=== PATIENT | female | born 1965 | race Caucasian/White ===

== ENCOUNTER → 2017-11-08 07:05 | Outpatient (CLI) | payer OTHER, SELFPAY ==
[2017-11-08 10:18] LABS: Absolute Lymphocyte Count 1.97 X10^3/ul (0.83-4.51); Absolute Neutrophil Count 3.5 X10^3/uL (2.0-7.7); Basophil# 0.09 X10^3/uL; Basophil% 1.4 % (0-1); Eosinophil# 0.23 X10^3/uL; Eosinophils% 3.5 % (0-5); Hematocrit 39.3 % (37-47); Hemoglobin 12.7 g/dl (12.0-15.0); Lymphocyte # 1.97 X10^3/ul (4.0); Lymphocyte % 30.4 % (19-41); Mean Corp Hgb Conc 32.3 g/gl (32-36); Mean Corpuscular Hgb 30.1 pg (27.0-32.0); Mean Corpuscular Volume 93.1 fL (81-99); Mean Platelet Vol. 11.3 fl (6.2-12.0); Monocyte# 0.68 X10^3/uL; Monocyte% 10.5 % (0-10); Neutrophil # 3.51 X10^3/uL (2.7-7.7); Platelet Count 294 K/mm3 (150-450); RBC Distribution Width CV 12.9 % (11.6-14.6); Red Blood Count 4.22 M/mm3 (4.2-5.4); White Blood Count 6.5 K/mm3 (4.4-11.0)
[2017-11-08 10:22] LABS: POSITIVE COUNT NO; POSITIVE DIFFERENTIAL NO; POSITIVE MORPHOLOGY NO
[2017-11-08 10:26] LABS: AST(SGOT) 18 U/L (15-37); Alanine Aminotransfer ALT/SGPT 17 U/L (13-56); Albumin, Serum 3.4 g/dL (3.2-5.0); Alkaline Phosphatase 85 U/L (45-117); Anion Gap 11 (5-15); BUN 10 mg/dL (7-18); BUN/Creat Ratio 12.2 RATIO (10-20); Calcium,Total 8.4 mg/dL (8.5-10.1); Chloride 106 mmol/L (98-107); Creatinine, Serum 0.82 mg/dL (0.55-1.02); EST Glomerular Filtration Rate 78 mL/min (>60); Est Glom Filt Rate - Afr Amer 94 mL/min (>60); Globulin 3.5 g/dL (2.2-4.2); Glucose 146 mg/dL (74-106); Potassium 3.9 mmol/L (3.5-5.1); Protein, Total 6.9 g/dL (6.4-8.2); Sodium Level 139 mmol/L (136-145)
[2017-11-08 10:53] LABS: Hemoglobin A1c 7.6 % (4.2-6.3)
== END ==
PROVIDERS: Internal Medicine Rheumatology; Family Provider Family Medicine; PCP Family Medicine; Visit Provider Family Medicine
DX: E11.9 Type 2 diabetes 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s (principal); M79.7 Fibromyalgia; F32.9 Major depressive disorder, single episode, unspecified; G47.00 Insomnia, unspecified; M06.4 Inflammatory polyarthropathy; Z79.899 Other long term (current) drug therapy; M18.11 Unilateral primary osteoarthritis of first carpometacarpal joint, right hand; M70.60 Trochanteric bursitis, unspecified hip; J45.909 Unspecified asthma, uncomplicated
CPT/HCPCS: 36415; 80053; 83036; 85025

== ENCOUNTER → 2018-01-28 07:18 | Outpatient (CLI) | payer OTHER, SELFPAY ==
[2018-01-28 10:36] LABS: Absolute Lymphocyte Count 1.63 X10^3/ul (0.83-4.51); Absolute Neutrophil Count 3.3 X10^3/uL (2.0-7.7); Basophil# 0.06 X10^3/uL; Eosinophil# 0.23 X10^3/uL; Eosinophils% 3.8 % (0-5); Hematocrit 39.4 % (37-47); Hemoglobin 12.6 g/dl (12.0-15.0); Lymphocyte # 1.63 X10^3/ul (4.0); Lymphocyte % 26.8 % (19-41); Mean Corpuscular Hgb 29.4 pg (27.0-32.0); Mean Corpuscular Volume 91.8 fL (81-99); Mean Platelet Vol. 10.8 fl (6.2-12.0); Monocyte# 0.88 X10^3/uL; Monocyte% 14.4 % (0-10); Neutrophil # 3.28 X10^3/uL (2.7-7.7); Neutrophil % 53.8 % (47-70); POSITIVE COUNT NO; POSITIVE DIFFERENTIAL NO; POSITIVE MORPHOLOGY NO; Platelet Count 300 K/mm3 (150-450); RBC Distribution Width CV 13.9 % (11.6-14.6); RBC Distribution Width SD 45.8 fl (35.1-43.9); Red Blood Count 4.29 M/mm3 (4.2-5.4); White Blood Count 6.1 K/mm3 (4.4-11.0)
[2018-01-28 11:17] LABS: ALB/GLOB Ratio 1.1 RATIO (0.9-2.4); AST(SGOT) 19 U/L (15-37); Alanine Aminotransfer ALT/SGPT 23 U/L (13-56); Albumin, Serum 3.8 g/dL (3.2-5.0); Alkaline Phosphatase 84 U/L (45-117); Anion Gap 10 (5-15); BUN 13 mg/dL (7-18); BUN/Creat Ratio 14.2 RATIO (10-20); Calcium,Total 8.7 mg/dL (8.5-10.1); Chloride 105 mmol/L (98-107); Creatinine, Serum 0.92 mg/dL (0.55-1.02); EST Glomerular Filtration Rate 68 mL/min (>60); Est Glom Filt Rate - Afr Amer 83 mL/min (>60); Globulin 3.5 g/dL (2.2-4.2); Glucose 157 mg/dL (74-106); Potassium 3.8 mmol/L (3.5-5.1); Protein, Total 7.3 g/dL (6.4-8.2); Sodium Level 138 mmol/L (136-145)
== END ==
PROVIDERS: Family Provider Family Medicine; PCP Family Medicine; Visit Provider Internal Medicine Rheumatology
DX: M06.4 Inflammatory polyarthropathy (principal); Z79.899 Other long term (current) drug therapy; M79.7 Fibromyalgia; M18.11 Unilateral primary osteoarthritis of first carpometacarpal joint, right hand; M70.60 Trochanteric bursitis, unspecified hip; F32.9 Major depressive disorder, single episode, unspecified; J45.909 Unspecified asthma, uncomplicated
CPT/HCPCS: 36415; 80053; 85025

== ENCOUNTER → 2018-04-19 07:00 | Outpatient (CLI) | payer OTHER, SELFPAY ==
[2018-04-19 10:29] LABS: Absolute Lymphocyte Count 1.79 X10^3/ul (0.83-4.51); Absolute Neutrophil Count 3.4 X10^3/uL (2.0-7.7); Basophil# 0.08 X10^3/uL; Basophil% 1.3 % (0-1); Eosinophils% 3.3 % (0-5); Hematocrit 38.5 % (37-47); Hemoglobin 12.6 g/dl (12.0-15.0); Lymphocyte # 1.79 X10^3/ul (4.0); Lymphocyte % 29.9 % (19-41); Mean Corp Hgb Conc 32.7 g/gl (32-36); Mean Corpuscular Hgb 29.9 pg (27.0-32.0); Mean Corpuscular Volume 91.4 fL (81-99); Mean Platelet Vol. 10.8 fl (6.2-12.0); Monocyte# 0.53 X10^3/uL; Monocyte% 8.9 % (0-10); Neutrophil # 3.38 X10^3/uL (2.7-7.7); Neutrophil % 56.6 % (47-70); POSITIVE COUNT NO; POSITIVE DIFFERENTIAL NO; POSITIVE MORPHOLOGY NO; Platelet Count 285 K/mm3 (150-450); RBC Distribution Width CV 13.5 % (11.6-14.6); RBC Distribution Width SD 44.9 fl (35.1-43.9); Red Blood Count 4.21 M/mm3 (4.2-5.4)
[2018-04-19 10:43] LABS: Hemoglobin A1c 6.1 % (4.2-6.3)
[2018-04-19 10:54] LABS: ALB/GLOB Ratio 1.2 RATIO (0.9-2.4); AST(SGOT) 15 U/L (15-37); Alanine Aminotransfer ALT/SGPT 20 U/L (13-56); Albumin, Serum 3.7 g/dL (3.2-5.0); Alkaline Phosphatase 74 U/L (45-117); Anion Gap 11 (5-15); BUN 15 mg/dL (7-18); BUN/Creat Ratio 19.7 RATIO (10-20); Calcium,Total 8.8 mg/dL (8.5-10.1); Chloride 106 mmol/L (98-107); Creatinine, Serum 0.76 mg/dL (0.55-1.02); EST Glomerular Filtration Rate 84 mL/min (>60); Est Glom Filt Rate - Afr Amer 102 mL/min (>60); Globulin 3.1 g/dL (2.2-4.2); Glucose 120 mg/dL (74-106); Potassium 3.6 mmol/L (3.5-5.1); Protein, Total 6.8 g/dL (6.4-8.2); Sodium Level 138 mmol/L (136-145)
== END ==
PROVIDERS: Internal Medicine Rheumatology; Family Provider Family Medicine; PCP Family Medicine; Visit Provider Family Medicine
DX: R73.9 Hyperglycemia, unspecified (principal); M06.4 Inflammatory polyarthropathy; Z79.899 Other long term (current) drug therapy; M79.7 Fibromyalgia; M18.11 Unilateral primary osteoarthritis of first carpometacarpal joint, right hand; M70.60 Trochanteric bursitis, unspecified hip; F32.9 Major depressive disorder, single episode, unspecified; J45.909 Unspecified asthma, uncomplicated
CPT/HCPCS: 36415; 80053; 83036; 85025

== ENCOUNTER → 2018-07-08 07:04 | Outpatient (CLI) | payer OTHER, SELFPAY ==
[2018-06-30 08:35] VITALS: BMI 50.3
[2018-07-08 10:16] LABS: Absolute Lymphocyte Count 2.01 X10^3/ul (0.83-4.51); Absolute Neutrophil Count 3.2 X10^3/uL (2.0-7.7); Basophil# 0.08 X10^3/uL; Basophil% 1.3 % (0-1); Eosinophil# 0.12 X10^3/uL; Eosinophils% 1.9 % (0-5); Hematocrit 37.2 % (37-47); Hemoglobin 11.9 g/dl (12.0-15.0); Lymphocyte # 2.01 X10^3/ul (4.0); Lymphocyte % 32.6 % (19-41); Mean Corpuscular Hgb 30.4 pg (27.0-32.0); Mean Corpuscular Volume 94.9 fL (81-99); Mean Platelet Vol. 11.5 fl (6.2-12.0); Monocyte# 0.69 X10^3/uL; Monocyte% 11.2 % (0-10); Neutrophil # 3.23 X10^3/uL (2.7-7.7); Neutrophil % 52.5 % (47-70); Platelet Count 278 K/mm3 (150-450); RBC Distribution Width CV 14.2 % (11.6-14.6); RBC Distribution Width SD 47.2 fl (35.1-43.9); Red Blood Count 3.92 M/mm3 (4.2-5.4); White Blood Count 6.2 K/mm3 (4.4-11.0)
[2018-07-08 10:17] LABS: POSITIVE COUNT NO; POSITIVE DIFFERENTIAL NO; POSITIVE MORPHOLOGY NO
[2018-07-08 10:39] LABS: ALB/GLOB Ratio 1.1 RATIO (0.9-2.4); AST(SGOT) 13 U/L (15-37); Alanine Aminotransfer ALT/SGPT 17 U/L (13-56); Albumin, Serum 3.5 g/dL (3.2-5.0); Alkaline Phosphatase 74 U/L (45-117); Anion Gap 13 (5-15); BUN 12 mg/dL (7-18); BUN/Creat Ratio 12.9 RATIO (10-20); Calcium,Total 8.2 mg/dL (8.5-10.1); Chloride 106 mmol/L (98-107); Creatinine, Serum 0.93 mg/dL (0.55-1.02); EST Glomerular Filtration Rate 67 mL/min (>60); Est Glom Filt Rate - Afr Amer 81 mL/min (>60); Globulin 3.3 g/dL (2.2-4.2); Glucose 154 mg/dL (74-106); Potassium 3.7 mmol/L (3.5-5.1); Protein, Total 6.8 g/dL (6.4-8.2); Sodium Level 139 mmol/L (136-145)
== END ==
PROVIDERS: Family Provider Family Medicine; PCP Family Medicine; Referring Provider Internal Medicine Rheumatology; Visit Provider Internal Medicine Rheumatology
DX: M06.4 Inflammatory polyarthropathy (principal); Z79.899 Other long term (current) drug therapy; M79.7 Fibromyalgia; M18.11 Unilateral primary osteoarthritis of first carpometacarpal joint, right hand; M70.60 Trochanteric bursitis, unspecified hip; F32.9 Major depressive disorder, single episode, unspecified; J45.909 Unspecified asthma, uncomplicated
CPT/HCPCS: 36415; 80053; 85025

== ENCOUNTER → 2018-07-09 08:04 | Outpatient (CLI) | payer OTHER, SELFPAY ==
[2018-06-30 08:35] VITALS: BMI 50.3
--- NOTE | 2018-07-09 08:09 | RAD_ITS ---
STUDY: X-RAY - RIGHT KNEE REASON FOR EXAM: Female, 52 years old. Arthritic pain. TECHNIQUE: 4 view(s) of the knee. COMPARISON: None. FINDINGS: Normal visualized distal femur. Normal visualized proximal tibia and fibula. Normal proximal tibiofibular articulation. There is no acute fracture, dislocation or destructive osseous pathology. Normal medial femorotibial compartment. Normal lateral femorotibial compartment. There is mild degenerative arthrosis of the patellofemoral articulation. There is no demonstrated joint effusion. The soft tissue structures are unremarkable. RAD/Knee 4 or More Views IMPRESSION: Mild arthrosis of the right knee. Electronically Signed: Santiago Weinberg DO at 22:12 EST Tel [phone], Service support ,
--- NOTE | 2018-07-09 08:09 | RAD_ITS ---
STUDY: X-RAY - LEFT KNEE REASON FOR EXAM: Female, 52 years old. Arthritis. No known injury. TECHNIQUE: 4 view(s) of the knee. COMPARISON: None. FINDINGS: Normal visualized distal femur. Normal visualized proximal tibia and fibula. Normal proximal tibiofibular articulation. There is no acute fracture, dislocation or destructive osseous pathology. There is mild degenerative arthrosis of the medial femorotibial compartment. Normal lateral femorotibial compartment. There is mild degenerative arthrosis of the patellofemoral articulation. There is no demonstrated joint effusion. The soft tissue structures are unremarkable. RAD/Knee 4 or More Views IMPRESSION: Mild arthrosis of the left knee. Electronically Signed: Santiago Weinberg DO at 22:12 EST Tel [phone], Service support ,
--- OUTSIDE RECORDS SUMMARY | 2018-08-25 06:02 | XMS RPT_ITS ---
:1965 Author Organization OHIP Care Team Providers Name Role Phone Todd, April Attending Unavailable Stencel, April Primary Care Unavailable Stencel, April Admitting Unavailable Stencel, April Attending Unavailable Stencel, April Primary Care Unavailable Stencel, April Attending Unavailable Stencel, April Primary Care Unavailable Stencel, April Attending Unavailable Stencel, April Primary Care Unavailable Vellanki, Pamela Attending Unavailable Vellanki, Pamela Referring Unavailable STENCEL, APRIL Primary Care Unavailable Vellanki, Pamela Attending Unavailable Vellanki, Pamela Referring Unavailable STENCEL, APRIL Primary Care Unavailable Vellanki, Pamela Attending Unavailable Vellanki, Pamela Referring Unavailable STENCEL, APRIL Primary Care Unavailable Slime Soria Attending Unavailable STENCEL, APRIL Referring Unavailable Silvio Barron Attending Unavailable STENCEL, APRIL Referring Unavailable STENCEL, APRIL Attending Unavailable STENCEL, APRIL Referring Unavailable STENCEL, APRIL Primary Care Unavailable Vellanki, Pamela Consulting Unavailable Vellanki, Pamela Attending Unavailable Vellanki, Pamela Referring Unavailable STENCEL, APRIL Primary Care Unavailable STENCEL, APRIL Attending Unavailable STENCEL, APRIL Referring Unavailable STENCEL, APRIL Primary Care Unavailable Vellanki, Pamela Consulting Unavailable PROBLEMS PROBLEMS DATE TYPE CONDITION / CODE ATTENDING STATUS SOURCE 07/10/2018 Unknown 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 / Community M06.4(ICD-10) Hospital Repository 07/10/2018 Unknown Z79.899 - Other long Vellanpiyush Pamela Active [facility] term (current) drug Community therapy / Hospital Z79.899(ICD-10) Repository 07/10/2018 Unknown M79.7 - Fibromyalgia Vellanpiyush, Pamela Active [facility] / M79.7(ICD-10) Community Hospital Repository 07/10/2018 Unknown M25.561 - Pain in Vellanki, Pamela Active [facility] right knee / Community M25.561(ICD-10) Hospital Repository 07/10/2018 Unknown M18.11 - Unilateral Vellanki, Pamela Active [facility] primary Community osteoarthritis of Hospital first carpometacarpal Repository joint, right hand / M18.11(ICD-10) 07/10/2018 Unknown F32.89 - Other Vellanki, Pamela Active [facility] specified depressive Community episodes / Hospital F32.89(ICD-10) Repository 07/10/2018 Unknown J45.909 - Unspecified Pamela Lentz Active [facility] asthma, uncomplicated Community / J45.909(ICD-10) Hospital Repository 07/08/2018 Unknown M70.60 - Trochanteric Pamela Lentz Active [facility] bursitis, unspecified Community hip / M70.60(ICD-10) Hospital Repository 11/08/2017 Unknown E11.9 - Type 2 STENCEL, Active [facility] diabetes mellitus APRIL Community without complications Hospital / E11.9(ICD-10) Repository PROCEDURES PROCEDURES No Procedure Records FoundRESULTS RESULTS SYNOVIAL FLUID RBC, Collected: 07/10/2018 Status: F Source: [facility] WBC AND DIFF 1:37 PM [facility] REPOSITORY TYPE CODE TESTS RESULT OUT OF RANGE REFERENCE UNITS LAB L200.5050 0.000-0.000 10 3 uL High SYN Tot 0.[address] Result Comment: This is the Total Number of Nucleated Cell Types in the Body Fluid. LAB L200.5100 0 10 6/uL High SYNOVIAL RBC 0.006 LAB L200.5200 0.000-0.002 10 3uL High SYNOVIAL WBC 0.2310 LAB L200.5260 % SYBF PMN Normal WBC% 22.9 LAB L200.5270 10 3/ul SYBF PMN Normal WBC# 0.053 LAB L200.5280 % SYBF MN Normal WBC% 77.1 LAB L200.5800 PATH Normal COM/SYFL May follow LAB L200.4600 SYNOVIAL Normal SOURCE NP0 LAB L200.4900 Pale Yellow SYNOVIAL Normal COLOR Straw LAB L200.5000 CLEAR SYNOVIAL Normal JONH. Turbid LAB L200.5300 0-25 % Normal NEUTROPHIL 20 LAB L200.5400 % LYMPH Normal 3 LAB L200.5500 % MONO Normal 21 LAB L200.5700 % OTHER Normal CELL /SYN 56 Performed By: #### L200.0400, L200.4175 #### [facility] [address] [place], [address] CRYSTALS, BODY FLUID Collected: 07/10/2018 Status: C Source: [facility] 1:37 PM [facility] REPOSITORY TYPE CODE TESTS RESULT OUT OF RANGE REFERENCE UNITS LAB L200.4200 Normal SEE PATH REV CRYSTALS/BF LAB L200.4225 Normal SYNOVIAL SOURCE/BF LAB L200.6020 Normal PATH Reviewed REV Result Comment: Negative for malignant cells and crystals. Jose Conley M.D. 07/12/18 AMENDED REPORT 07/12/18 1016 PATH REV previously reported as: Will follow Performed By: #### L200.0400, L200.4175 #### [facility] [address] [place], [address] Observed: 07/10/2018 Status: F Source: [place] CULTURE, BODY FLUID 1:37 PM [facility] REPOSITORY List Antibiotics Last 48 Hours? N List Antibiotics to be Started? N Gram Stain Centrifuged Specimen? Culture performed on centrifuged specimen Gram Stain Rare Red Blood Cells No organisms seen Body Fluid Cult Culture Exhibits No Growth at 8 days Cult, Anaerobic No growth in 5 days. Performed By: #### M100.1300 #### [facility] [address] [place], [address] KNEE 4 OR MORE Observed: 07/09/2018 Status: F Source: [place] VIEWS 8:09 AM [facility] REPOSITORY [facility] Imaging Services [address] [place] [address] Knee 4 or More Views MR#: [id number] Acct: [id number] Name: TATIANA CHUN Rep #: [id number] : 1965 F 52 From: Santiago Weinberg DO PCP: April Brooks MD Status: REG CLI Study: Knee 4 or More Views Date of Exam: 07/09/18 Exam# [id number] Ordering Dr: Pamela Lentz MD STUDY: X-RAY - LEFT KNEE REASON FOR EXAM: Female, 52 years old. Arthritis. No known injury. TECHNIQUE: 4 view(s) of the knee. COMPARISON: None. FINDINGS: Normal visualized distal femur. Normal visualized proximal tibia and fibula. Normal proximal tibiofibular articulation. There is no acute fracture, dislocation or destructive osseous pathology. There is mild degenerative arthrosis of the medial femorotibial compartment. Normal lateral femorotibial compartment. There is mild degenerative arthrosis of the patellofemoral articulation. There is no demonstrated joint effusion. The soft tissue structures are unremarkable. RAD/Knee 4 or More Views IMPRESSION: Mild arthrosis of the left knee. Electronically Signed: Santiago Weinberg DO at 22:12 EST Tel [phone], Service support , CC: April Brooks MD; Pamela Lentz MD Dumbwaiter Operator: Signed KNEE 4 OR MORE Observed: 07/09/2018 Status: F Source: [place] VIEWS 8:09 AM [facility] REPOSITORY [facility] Imaging Services [address] [place] [address] [place] [address] Knee 4 or More Views MR#: [id number] Acct: [id number] Name: ZARINA HARRELLHAMILTONTYRESEDoraTATIANA Rep #: [id number] : 1965 F 52 From: Santiago Weinberg DO PCP: April Brooks MD Status: REG CLI Study: Knee 4 or More Views Date of Exam: 07/09/18 Exam# [id number] Ordering Dr: Pamela Lentz MD STUDY: X-RAY - RIGHT KNEE REASON FOR EXAM: Female, 52 years old. Arthritic pain. TECHNIQUE: 4 view(s) of the knee. COMPARISON: None. FINDINGS: Normal visualized distal femur. Normal visualized proximal tibia and fibula. Normal proximal tibiofibular articulation. There is no acute fracture, dislocation or destructive osseous pathology. Normal medial femorotibial compartment. Normal lateral femorotibial compartment. There is mild degenerative arthrosis of the patellofemoral articulation. There is no demonstrated joint effusion. The soft tissue structures are unremarkable. RAD/Knee 4 or More Views IMPRESSION: Mild arthrosis of the right knee. Electronically Signed: Santiago Weinberg DO at 22:12 EST Tel [phone], Service support , CC: April Brooks MD; Pamela Lentz MD Dumbwaiter Operator: Signed CBC W/DIFF, AUTOMATED Collected: 07/08/2018 Status: F Source: [facility] 7:13 AM [facility] REPOSITORY TYPE CODE TESTS RESULT OUT OF RANGE REFERENCE UNITS LAB L100.1000 4.4-11.0 K/mm3 Normal WBC 6.2 LAB L100.1200 4.2-5.4 M/mm3 Low RBC 3.92 LAB L100.1300 12.0-15.0 g/dl Low HGB 11.9 LAB L100.1400 37-47 % Normal HCT 37.2 LAB L100.1500 81-99 fL Normal MCV 94.9 LAB L100.1600 27.0-32.0 pg Normal MCH 30.4 LAB L100.1700 32-36 g/gl Normal MCHC 32.0 LAB L100.1810 11.6-14.6 % Normal RDW CV 14.2 LAB L100.1820 35.1-43.9 fl High RDW SD 47.2 LAB L100.1900 150-450 K/mm3 Normal PLT 278 LAB L100.2000 6.2-12.0 fl Normal MPV 11.5 LAB L100.2100 47-70 % Normal NEUT% 52.5 LAB L100.2200 19-41 % Normal LY% 32.6 LAB L100.2300 0-10 % High MONO% 11.2 LAB L100.2400 0-5 % Normal EO% 1.9 LAB L100.2500 0-1 % High BASO% 1.3 LAB L100.2550 0.0-0.9 % Normal IM GRAN % 0.500 Result Comment: IG% - Immature Granulocytes (promyelocytes, myelocytes and metamyelocytes) > 1% indicates that a LEFT SHIFT is Present. LAB L100.2620 2.0-7.7 X10 3/uL Normal Absolute Neut 3.2 LAB L100.2720 0.83-4.51 X10 3/ul Normal Absolute Lymph 2.01 Performed By: #### L100.0100 #### [facility] [address] [place], [place], [address] COMPREHENSIVE METABOLIC Collected: 07/08/2018 Status: F Source: [facility] 7:13 AM [facility] REPOSITORY TYPE CODE TESTS RESULT OUT OF RANGE REFERENCE UNITS LAB L501.0100 74-106 mg/dL High GLU 154 Result Comment: Fasting Glucose result greater than or equal to 126 mg/dL suggests DIABETES MELLITUS per A.D.A. criteria. Please note revised GLUCOSE reference range effective 2017. LAB L501.1000 7-18 mg/dL Normal BUN 12 LAB L501.1100 0.55-1.02 mg/dL Normal CREAT,SERUM 0.93 Result Comment: The validity of the calculated GFR AND GFRAA in patients over 70 years has not been determined. Clinical correlation is essential. LAB L501.1110 >60 mL/min Normal EST GFR 67 Result Comment: Non- GFR Calc LAB L501.1115 >60 mL/min Normal EST GFR - AA 81 Result Comment: GFR Calc LAB L501.1300 10-20 RATIO Normal BUN/CRE 12.9 LAB L501.1500 6.4-8.2 g/dL T Normal PROT 6.8 LAB L501.1800 3.2-5.0 g/dL Normal ALB 3.5 LAB L501.1950 2.2-4.2 g/dL Normal GLOB 3.3 LAB L501.2000 0.9-2.4 RATIO Normal A/G 1.1 LAB L501.2200 8.5-10.1 mg/dL Low CA 8.2 LAB L501.4100 15-37 U/L Low AST 13 LAB L501.4305 45-117 U/L Normal ALK P 74 LAB L501.4405 13-56 U/L Normal ALT 17 LAB L501.4600 0.20-1.00 mg/dL T Normal BILI 0.40 LAB L501.5300 136-145 mmol/L NA Normal 139 LAB L501.5600 3.5-5.1 mmol/L K Normal 3.7 LAB L501.5900 98-107 mmol/L CL Normal 106 LAB L501.6100 21.0-32.0 mmol/L Low CO2 20.0 LAB L501.6200 5-15 Normal GAP 13 Performed By: #### L500.4050 #### [facility] [address] [place], [place], [address] URGENT CARE VISIT Observed: 06/30/2018 Status: F Source: [facility] REPORT 10:55 AM [facility] REPOSITORY [facility] [address] [facility] [address] [place], [place] [address] OFFICE VISIT Date of Service: 06/30/18 MR#: [id number] Acct: [id number] Name: TATIANA CHUN Rep #: [id number] : 1965 Provider: DARIAN Soria Age/Sex: 52/F Location: [facility] Status: Signed Intake Vital Signs06/30/18 Height 5 ft 2 in 06/30/18 Weight: 275 lb 06/30/18 Body Mass Index (BMI) 50.3 06/30/18 Blood Pressure 130/84 H Intake Visit Reasons: RT KNEE PULLED MUSCLE X 2 WEEKS Chief Complaint: Right knee pain Refractory Worker Required: No Accompanied by: SELF Is patient in pain?: No Allergies adhesive Allergy (Verified 06/30/18 08:35) Hives cephalexin monohydrate [From Keflex] Allergy (Verified 06/30/18 08:35) Hives latex Allergy (Verified 06/30/18 08:35) Hives levofloxacin [From Levaquin] Allergy (Verified 06/30/18 08:35) Hives Sulfa (Sulfonamide Antibiotics) Allergy (Verified 06/30/18 08:35) Hives Medications ALPRAZolam [Xanax] 0.5 mg PO TID PRN PRN 01/20/14 [History Confirmed 06/30/18] Hydroxychloroquine [Plaquenil] 200 mg PO DAILYCM 01/20/14 [History Confirmed 06/30/18] Milnacipran HCl [Savella] 50 mg PO BID 01/20/14 [History Confirmed 06/30/18] Trazodone ER [Oleptro Er] 150 mg PO DAILY 01/20/14 [History Confirmed 06/30/18] Zolpidem Tartrate [Ambien] 10 mg PO QHS PRN PRN 01/20/14 [History Confirmed 06/30/18] predniSONE tablet 10 mg PO DAILY PRN 01/20/14 [History Confirmed 06/30/18] traMADol [Ultram (G)] 50 mg PO Q4H PRN PRN 01/20/14 [History Confirmed 06/30/18] benzonatate 100 mg capsule 200 mg PO TID PRN #30 cap 04/30/18 [Rx Confirmed 06/30/18] PFSH Medical History Arthritis (Acute) Fibromyalgia (Acute) Social History Smoking Status: Never smoker alcohol intake: never HPI HPI Chief Complaint: Right knee pain Details: TATIANA SRINIVASAN [facility], is a 52 F who presents to the office today for 2 week history of right knee pain, just below the knee. No injury or trauma to her knowlege. She has Rheumatoid and osteoarthritis, and fibromyalgia. Her OA is mainly in her hands. R.A. is more in her hips and her feet. Her regular medication is Methotrexate 8 tablets a day, once a week. Duloxatine once a day. Folic acid bid, and placquenil bid, and Prednisone as needed. She also has Ultram 2-4 tablets a day for pain. Her OA DR. is Dr. Negrete. Right knee pain is non radiating and increases with weight bearing and prolonged sitting. Pain scale is 7-8/10 with weight bearing and described as a dull ache. Non-radiating. No ffever or chills. No nausea or vomiting. She took one 10 mg tablet daily for 3 days in aa row, Last Sunday, Sunday, and Sunday, finishing them 4 days ago. Since it didnt seem to help at all she did not continue. Her next RA DR encinas/rosie is in 2 weeks. ROS Const Constitutional: Positive for night sweats (normal with menapause); no body ache, chills, fatigue, fever(s), change in appetite, weakness, frequent falls, headache(s) or excessive sweating Eyes Eyes: No visual disturbances, light sensitivity, eye pain or change in vision ENT ENT: No ear pain, ear discharge, hearing loss, dizziness/vertigo, nasal discharge, difficulty swallowing, sore throat, neck pain or headache(s) Resp Respiratory: No cough, chest congestion, hemoptysis, shortness of breath or wheezing Cardio Cardiology: No shortness of breath, irregular heart rhythm, lightheadedness, chest pain at rest, chest pain with exertion, generalized swelling, orthopnea, palpitations or excessive sweating Gastro GI: No difficulty swallowing, abdominal pain, bloating, change in bowel habits, diarrhea, blood in stool, Black,tarry stools, nausea/dyspepsia or vomiting Genitourinary-Female: No burning urination, urinary frequency, urinary urgency, blood in urine or Vaginal Itching Musc Musculoskeletal: Positive for joint pain (right knee- see HPI) and muscle weakness (right knee point tender medial joint line. +medial Valentine. O/w full ROM, ); no back pain, numbness, tingling or neck pain Skin Skin: No lesions, itching or rash Neuro Neurology: No visual disturbances, numbness, tingling, abnormal speech, confusion, unsteady gait/balance, dizziness, weakness, frequent falls, loss of vision or headache(s) Psych Psychiatric: No change in appetite, No confusion, No anxiety, No depression Endo Endocrine: No fatigue, cold intolerance, excessive sweating, flushing, heat intolerance or increased thirst/drinking Aller/Imm Allergy/Immunologic: No wheezing, itchy eyes, food intolerance, seasonal allergy symptoms or hives Robert/Lymp Hematologic/Lymphatic: No easy bruising Exam Const General: cooperative, no acute distress Nutritional Appearance: overweight Orientation: alert, oriented x3 [facility] Head: normal to inspection, normocephalic Ears: hearing grossly normal bilaterally, external ears normal, no periauricular adenopathy Nose: no nasal discharge, nasal mucous membranes and turbinates normal Face and sinus: normal facial exam Mouth: oral mucosae normal, oropharynx normal, tongue normal Teeth and gingiva: dentition normal, gingiva normal Throat: posterior oropharynx normal Eyes General: appearance normal, both eyes and all related structures Visual Nance: normal visual nance by confrontation Eyelids: eyelids normal Conjunctivae: conjunctivae normal Sclera: sclerae normal Pupils: PERRL EOM: EOM intact bilaterally Direct ophthalmoscopy: no photophobia Neck Neck: normal visual inspection, full ROM, supple, no lymphadenopathy Lymphatic: no lymphadenopathy noted Chest Chest palpation AND inspection: normal inspection of the chest Resp Effort AND Inspection: normal respiratory effort, able to speak in complete sentences, symmetric chest movement, no audible wheezes, no cough, not labored, no respiratory distress Auscultation: Bilateral: Clear to Auscultation Cardio Rate: regular rate Rhythm: regular rhythm Heart Sounds: S1 normal, S2 normal GI Inspection: normal to inspection Musc Musculoskeletal: Yes joint tenderness (right knee) and muscle weakness (right knee point tender medial joint line. +medial Valentine. O/w full ROM, ); no joint redness or decreased ROM Skin General: no rashes or lesions noted, no fluctulance, no erythema, other (slight warmth noted on palpation right knee anteriorly.) Neuro General: alert, oriented x3, moves all extremities, no focal motor deficits Cognition: normal cognition Speech: speech normal Gait: antalgic (favoring right knee) Motor: muscle tone normal throughout Sensory Exam: no sensory deficits noted Extrem General: full ROM (but pain with full extension right knee. ), abnormal gait (antalgic), limp (favoringg right L.E.) Other: Negative Homans sign. No calf tenderness. Pain is restricted to right knee medial joint line. Psych Appearance: grossly normal, well kempt Mental Status: mental status grossly normal Affect: normal affect Speech and Movement: speech and movement normal Attitude: cooperative Thought Process: normal Thought Content: normal Judgment: judgment good Assessment AND Plan Problems 1. Right medial knee pain M25.561 Plan Discussed probability of this being a right knee strain, with possible cartilage involvement, She has prednisone at home and will do another 3 days of prednisone, 20 mg /day for 3 days. Rec; Quad extention exercises. Alt warm and cold compresses F/u with Ortho if her symptoms persist. Orders Referrals: Coding Level of Care Code Off vis,est,level 3 Diagnoses Right medial knee pain M25.561 06/30/18 1055 <Electronically signed by Slime FARMER> Date Slime FARMER Cosigner Signature: Date (if applicable) CC: URGENT CARE VISIT Observed: 04/30/2018 Status: F Source: [facility] REPORT 12:19 PM [facility] REPOSITORY [facility] [address] [place] [address] [address] [place] [address] OFFICE VISIT Date of Service: 04/30/18 MR#: [id number] Acct: [id number] Name: TATIANA CHUN Rep #: [id number] : 1965 Provider: Silvio FARMER Age/Sex: 52/F Location: [facility] Status: Signed Intake Vital Signs04/30/18 Height 5 ft 2 in 04/30/18 Weight: 275 lb 04/30/18 Body Mass Index (BMI) 50.3 04/30/18 Blood Pressure 134/88 H Intake Visit Reasons: COUGH,SORE THROAT Refractory Worker Required: No Accompanied by: self Is patient in pain?: No Allergies adhesive Allergy (Verified 04/30/18 12:04) Hives cephalexin monohydrate [From Keflex] Allergy (Verified 04/30/18 12:04) Hives latex Allergy (Verified 04/30/18 12:04) Hives levofloxacin [From Levaquin] Allergy (Verified 04/30/18 12:04) Hives Sulfa (Sulfonamide Antibiotics) Allergy (Verified 04/30/18 12:04) Hives Medications ALPRAZolam [Xanax] 0.5 mg PO TID PRN PRN 01/20/14 [History Confirmed 04/30/18] Hydroxychloroquine [Plaquenil] 200 mg PO DAILYCM 01/20/14 [History Confirmed 04/30/18] Milnacipran HCl [Savella] 50 mg PO BID 01/20/14 [History Confirmed 04/30/18] Trazodone ER [Oleptro Er] 150 mg PO DAILY 01/20/14 [History Confirmed 04/30/18] Zolpidem Tartrate [Ambien] 10 mg PO QHS PRN PRN 01/20/14 [History Confirmed 04/30/18] predniSONE tablet 10 mg PO DAILY PRN 01/20/14 [History Confirmed 04/30/18] traMADol [Ultram (G)] 50 mg PO Q4H PRN PRN 01/20/14 [History Confirmed 04/30/18] amoxicillin 875 mg-potassium clavulanate 125 mg tablet 1 tab PO Q12H 10 Days #20 tab 04/30/18 [Rx Confirmed 04/30/18] benzonatate 100 mg capsule 200 mg PO TID PRN #30 cap 04/30/18 [Rx Confirmed 04/30/18] PFSH Medical History Arthritis (Acute) Fibromyalgia (Acute) Social History Smoking Status: Never smoker alcohol intake: never HPI HPI Details: TATIANA QUIÑONES, is a 52 F who presents to the office today for complaint of cough, sore throat and dry heaving for the past 5 days. Patient states that she started with sore throat and nasal congestion 5 days ago and then has developed a dry nonproductive cough over the past 3 days. She states that the coughing has caused her to dry heave however denies any vomiting or hemoptysis. She denies shortness of breath or difficulty breathing. Although she does have a history of asthma which she is currently not requiring treatment. She denies fever, chills, sweats. No other associated symptoms or alleviating/aggravating factors. ROS Const Constitutional: No fever(s), chills, headache(s), night sweats or abnormal sleep pattern ENT ENT: Positive for nasal discharge, nasal congestion and post nasal drip; no headache(s), ear pain, ear discharge or sore throat Resp Respiratory: Positive for cough Cough: Yes non-productive and pain with cough; no wheezing, hemoptysis or shortness of breath Cardio Cardiology: No chest pain at rest or shortness of breath Neuro Neurology: No headache(s), behavioral changes or confusion Psych Psychiatric: No abnormal sleep pattern, No behavioral changes, No confusion Aller/Imm Allergy/Immunologic: No wheezing Exam Const General: cooperative, well developed [facility] Head: normal to inspection, atraumatic Ears: hearing grossly normal bilaterally Nose: nasal discharge clear Face and sinus: normal facial exam Mouth: oral mucosae normal Throat: abnormal tonsil bilaterally Resp Effort AND Inspection: normal respiratory effort, no audible wheezes Auscultation: Bilateral: Clear to Auscultation Cardio Palpation: normal PMI Rate: regular rate Rhythm: regular rhythm Neuro General: alert, CN's II-XI intact bilaterally Psych Appearance: grossly normal Mental Status: mental status grossly normal Assessment AND Plan Problems 1. Acute bronchitis, unspecified organism J20.9 Status Acute Plan Augmentin and Tessalon Perles as prescribed today. Patient refused prescription of azithromycin as it does not work for her. Encouraged to get plenty of rest, drink lots of clear liquids, and use Tylenol or Ibuprofen (unless contraindicated) for fever and comfort. Patient also educated on other symptomatic management techniques. To be seen in 7-10 days if no improvement; sooner if worsening of symptoms. Patient advised of potential red flags and when appropriate report to the ED. Patient verbalized understanding of all the above. Medications New: amoxicillin-pot clavulanate 875-125 mg (Au1 tab PO Q12H 10 days 20 tabs 0RF J20.9 gmentin) benzonatate 200 mg (2 x 100 mg) PO TID PRN 30 caps 0RF cough Coding Level of Care Code Off vis,new,level 3 Diagnoses Acute bronchitis, unspecified organism J20.9 Bronchitis organism: unspecified organism 04/30/18 1219 <Electronically signed by Silvio FARMER> Date Silvio FARMER Cosigner Signature: Date (if applicable) CC: CBC W/DIFF, AUTOMATED Collected: 04/19/2018 Status: F Source: [facility] 7:15 AM [facility] REPOSITORY TYPE CODE TESTS RESULT OUT OF RANGE REFERENCE UNITS LAB L100.1000 4.4-11.0 K/mm3 Normal WBC 6.0 LAB L100.1200 4.2-5.4 M/mm3 Normal RBC 4.21 LAB L100.1300 12.0-15.0 g/dl Normal HGB 12.6 LAB L100.1400 37-47 % Normal HCT 38.5 LAB L100.1500 81-99 fL Normal MCV 91.4 LAB L100.1600 27.0-32.0 pg Normal MCH 29.9 LAB L100.1700 32-36 g/gl Normal MCHC 32.7 LAB L100.1810 11.6-14.6 % Normal RDW CV 13.5 LAB L100.1820 35.1-43.9 fl High RDW SD 44.9 LAB L100.1900 150-450 K/mm3 Normal PLT 285 LAB L100.2000 6.2-12.0 fl Normal MPV 10.8 LAB L100.2100 47-70 % Normal NEUT% 56.6 LAB L100.2200 19-41 % Normal LY% 29.9 LAB L100.2300 0-10 % Normal MONO% 8.9 LAB L100.2400 0-5 % Normal EO% 3.3 LAB L100.2500 0-1 % High BASO% 1.3 LAB L100.2550 0.0-0.9 % Normal IM GRAN % 0.000 Result Comment: IG% - Immature Granulocytes (promyelocytes, myelocytes and metamyelocytes) > 1% indicates that a LEFT SHIFT is Present. LAB L100.2620 2.0-7.7 X10 3/uL Normal Absolute Neut 3.4 LAB L100.2720 0.83-4.51 X10 3/ul Normal Absolute Lymph 1.79 Performed By: #### L100.0100 #### [facility] [address] [place], [place], [address] COMPREHENSIVE METABOLIC Collected: 04/19/2018 Status: F Source: [facility] 7:15 AM [facility] REPOSITORY TYPE CODE TESTS RESULT OUT OF RANGE REFERENCE UNITS LAB L501.0100 74-106 mg/dL High GLU 120 Result Comment: Fasting Glucose result from 100 to 125 mg/dL suggests IMPAIRED HOMEOSTASIS per A.D.A. criteria. Please note revised GLUCOSE reference range effective 2017. LAB L501.1000 7-18 mg/dL Normal BUN 15 LAB L501.1100 0.55-1.02 mg/dL Normal CREAT,SERUM 0.76 Result Comment: The validity of the calculated GFR AND GFRAA in patients over 70 years has not been determined. Clinical correlation is essential. LAB L501.1110 >60 mL/min Normal EST GFR 84 Result Comment: Non- GFR Calc LAB L501.1115 >60 mL/min Normal EST GFR - AA 102 Result Comment: GFR Calc LAB L501.1300 10-20 RATIO Normal BUN/CRE 19.7 LAB L501.1500 6.4-8.2 g/dL T Normal PROT 6.8 LAB L501.1800 3.2-5.0 g/dL Normal ALB 3.7 LAB L501.1950 2.2-4.2 g/dL Normal GLOB 3.1 LAB L501.2000 0.9-2.4 RATIO Normal A/G 1.2 LAB L501.2200 8.5-10.1 mg/dL CA Normal 8.8 LAB L501.4100 15-37 U/L Normal AST 15 LAB L501.4305 45-117 U/L Normal ALK P 74 LAB L501.4405 13-56 U/L Normal ALT 20 LAB L501.4600 0.20-1.00 mg/dL High T BILI 1.20 LAB L501.5300 136-145 mmol/L NA Normal 138 LAB L501.5600 3.5-5.1 mmol/L K Normal 3.6 LAB L501.5900 98-107 mmol/L CL Normal 106 LAB L501.6100 21.0-32.0 mmol/L Normal CO2 21.0 LAB L501.6200 5-15 Normal GAP 11 Performed By: #### L500.4050 #### [facility] [address] [place], [place], [address] HEMOGLOBIN A1C Collected: 04/19/2018 Status: F Source: [facility] 7:14 AM [facility] REPOSITORY TYPE CODE TESTS RESULT OUT OF RANGE REFERENCE UNITS LAB L501.9985 4.2-6.3 % Normal HGB A1C 6.1 Performed By: #### L501.9985 #### [facility] [address] [place], [address] CBC W/DIFF, AUTOMATED Collected: 01/28/2018 Status: F Source: [facility] 7:23 AM [facility] REPOSITORY TYPE CODE TESTS RESULT OUT OF RANGE REFERENCE UNITS LAB L100.1000 4.4-11.0 K/mm3 Normal WBC 6.1 LAB L100.1200 4.2-5.4 M/mm3 Normal RBC 4.29 LAB L100.1300 12.0-15.0 g/dl Normal HGB 12.6 LAB L100.1400 37-47 % Normal HCT 39.4 LAB L100.1500 81-99 fL Normal MCV 91.8 LAB L100.1600 27.0-32.0 pg Normal MCH 29.4 LAB L100.1700 32-36 g/gl Normal MCHC 32.0 LAB L100.1810 11.6-14.6 % Normal RDW CV 13.9 LAB L100.1820 35.1-43.9 fl High RDW SD 45.8 LAB L100.1900 150-450 K/mm3 Normal PLT 300 LAB L100.2000 6.2-12.0 fl Normal MPV 10.8 LAB L100.2100 47-70 % Normal NEUT% 53.8 LAB L100.2200 19-41 % Normal LY% 26.8 LAB L100.2300 0-10 % High MONO% 14.4 LAB L100.2400 0-5 % Normal EO% 3.8 LAB L100.2500 0-1 % Normal BASO% 1.0 LAB L100.2550 0.0-0.9 % Normal IM GRAN % 0.200 Result Comment: IG% - Immature Granulocytes (promyelocytes, myelocytes and metamyelocytes) > 1% indicates that a LEFT SHIFT is Present. LAB L100.2620 2.0-7.7 X10 3/uL Normal Absolute Neut 3.3 LAB L100.2720 0.83-4.51 X10 3/ul Normal Absolute Lymph 1.63 Performed By: #### L100.0100 #### [facility] [address] [place] [address]. [place], [place], [address] COMPREHENSIVE METABOLIC Collected: 01/28/2018 Status: F Source: [facility] 7:23 AM [facility] REPOSITORY TYPE CODE TESTS RESULT OUT OF RANGE REFERENCE UNITS LAB L501.0100 74-106 mg/dL High GLU 157 Result Comment: Fasting Glucose result greater than or equal to 126 mg/dL suggests DIABETES MELLITUS per A.D.A. criteria. Please note revised GLUCOSE reference range effective 2017. LAB L501.1000 7-18 mg/dL Normal BUN 13 LAB L501.1100 0.55-1.02 mg/dL Normal CREAT,SERUM 0.92 Result Comment: The validity of the calculated GFR AND GFRAA in patients over 70 years has not been determined. Clinical correlation is essential. LAB L501.1110 >60 mL/min Normal EST GFR 68 Result Comment: Non- GFR Calc LAB L501.1115 >60 mL/min Normal EST GFR - AA 83 Result Comment: GFR Calc LAB L501.1300 10-20 RATIO Normal BUN/CRE 14.2 LAB L501.1500 6.4-8.2 g/dL T Normal PROT 7.3 LAB L501.1800 3.2-5.0 g/dL Normal ALB 3.8 LAB L501.1950 2.2-4.2 g/dL Normal GLOB 3.5 LAB L501.2000 0.9-2.4 RATIO Normal A/G 1.1 LAB L501.2200 8.5-10.1 mg/dL CA Normal 8.7 LAB L501.4100 15-37 U/L Normal AST 19 LAB L501.4305 45-117 U/L Normal ALK P 84 LAB L501.4405 13-56 U/L Normal ALT 23 LAB L501.4600 0.20-1.00 mg/dL T Normal BILI 0.80 LAB L501.5300 136-145 mmol/L NA Normal 138 LAB L501.5600 3.5-5.1 mmol/L K Normal 3.8 LAB L501.5900 98-107 mmol/L CL Normal 105 LAB L501.6100 21.0-32.0 mmol/L Normal CO2 23.0 LAB L501.6200 5-15 Normal GAP 10 Performed By: #### L500.4050 #### [facility] [address] [place], [address] CBC W/DIFF, AUTOMATED Collected: 11/08/2017 Status: F Source: [facility] 7:14 AM [facility] REPOSITORY TYPE CODE TESTS RESULT OUT OF RANGE REFERENCE UNITS LAB L100.1000 4.4-11.0 K/mm3 Normal WBC 6.5 LAB L100.1200 4.2-5.4 M/mm3 Normal RBC 4.22 LAB L100.1300 12.0-15.0 g/dl Normal HGB 12.7 LAB L100.1400 37-47 % Normal HCT 39.3 LAB L100.1500 81-99 fL Normal MCV 93.1 LAB L100.1600 27.0-32.0 pg Normal MCH 30.1 LAB L100.1700 32-36 g/gl Normal MCHC 32.3 LAB L100.1810 11.6-14.6 % Normal RDW CV 12.9 LAB L100.1820 35.1-43.9 fl Normal RDW SD 43.0 LAB L100.1900 150-450 K/mm3 Normal PLT 294 LAB L100.2000 6.2-12.0 fl Normal MPV 11.3 LAB L100.2100 47-70 % Normal NEUT% 54.0 LAB L100.2200 19-41 % Normal LY% 30.4 LAB L100.2300 0-10 % High MONO% 10.5 LAB L100.2400 0-5 % Normal EO% 3.5 LAB L100.2500 0-1 % High BASO% 1.4 LAB L100.2550 0.0-0.9 % Normal IM GRAN % 0.200 Result Comment: IG% - Immature Granulocytes (promyelocytes, myelocytes and metamyelocytes) > 1% indicates that a LEFT SHIFT is Present. LAB L100.2620 2.0-7.7 X10 3/uL Normal Absolute Neut 3.5 LAB L100.2720 0.83-4.51 X10 3/ul Normal Absolute Lymph 1.97 Performed By: #### L100.0100 #### [facility] [address] [place], [place], [address] COMPREHENSIVE METABOLIC Collected: 11/08/2017 Status: F Source: [facility] 7:14 AM [facility] REPOSITORY TYPE CODE TESTS RESULT OUT OF RANGE REFERENCE UNITS LAB L501.0100 74-106 mg/dL High GLU 146 Result Comment: Fasting Glucose result greater than or equal to 126 mg/dL suggests DIABETES MELLITUS per A.D.A. criteria. Please note revised GLUCOSE reference range effective 2017. LAB L501.1000 7-18 mg/dL Normal BUN 10 LAB L501.1100 0.55-1.02 mg/dL Normal CREAT,SERUM 0.82 Result Comment: The validity of the calculated GFR AND GFRAA in patients over 70 years has not been determined. Clinical correlation is essential. LAB L501.1110 >60 mL/min Normal EST GFR 78 Result Comment: Non- GFR Calc LAB L501.1115 >60 mL/min Normal EST GFR - AA 94 Result Comment: GFR Calc LAB L501.1300 10-20 RATIO Normal BUN/CRE 12.2 LAB L501.1500 6.4-8.2 g/dL T Normal PROT 6.9 LAB L501.1800 3.2-5.0 g/dL Normal ALB 3.4 LAB L501.1950 2.2-4.2 g/dL Normal GLOB 3.5 LAB L501.2000 0.9-2.4 RATIO Normal A/G 1.0 LAB L501.2200 8.5-10.1 mg/dL Low CA 8.4 LAB L501.4100 15-37 U/L Normal AST 18 LAB L501.4305 45-117 U/L Normal ALK P 85 LAB L501.4405 13-56 U/L Normal ALT 17 Result Comment: Please note revised ALT reference range effective 2017. LAB L501.4600 0.20-1.00 mg/dL Normal T BILI 0.70 LAB L501.5300 136-145 mmol/L Normal NA 139 LAB L501.5600 3.5-5.1 mmol/L Normal K 3.9 LAB L501.5900 98-107 mmol/L Normal CL 106 LAB L501.6100 21.0-32.0 mmol/L Normal CO2 22.0 LAB L501.6200 5-15 Normal GAP 11 Performed By: #### L500.4050 #### [facility] [address] [facility]. [place], [place], [address] HEMOGLOBIN A1C Collected: 11/08/2017 Status: F Source: [facility] 7:14 AM [facility] REPOSITORY TYPE CODE TESTS RESULT OUT OF RANGE REFERENCE UNITS LAB L501.9985 4.2-6.3 % High HGB A1C 7.6 Performed By: #### L501.9985 #### [facility] [address] [facility]. [place], [place], [address] ALLERGIES ALLERGIES DATE TYPE / CODE NAME / CODE REACTION SEVERITY SOURCE 06/30/2018 Drug cephalexin Hives Unknown [place] Allergy/416 monohydrate/F0000 Community 537129([facility] 18990(RXNORM) Hospital ED CT) Repository 06/30/2018 Drug Sulfa Hives Unknown [place] Allergy/416 (Sulfonamide Community 559513([facility] Antibiotics)/F[address]) 573426(RXNORM) Repository 06/30/2018 Drug adhesive/R4363103 Hives Unknown [place] Allergy/416 45(RXNORM) Community 695274([facility] ED CT) Repository 06/30/2018 Drug levofloxacin/F006 Hives Unknown [place] Allergy/416 214182(RXNORM) Community 989052([facility] ED CT) Repository 06/30/2018 Drug latex/C739613456( Hives Unknown [place] Allergy/416 RXNORM) Community 856888([facility] ED CT) Repository Environment Latex [facility] /832435003( [facility] SNOMED CT) System Repository Drug/819311 Bactrim 61473507 [facility] 003([facility] CT) System Repository Drug/472844 Keflex [facility] 003([facility] CT) System Repository Drug/644301 Levaquin [facility] 003([facility] CT) System Repository ENCOUNTERS ENCOUNTERS ADMIT/DISCHARGE ACCOUNT NUMBER ADMITTING ENCOUNTER LOCATION SOURCE CLASS 07/10/2018 [id number] Ambulatory [facility] ing:LABSPEC Repository 07/09/2018 [id number] [facility] ing:HPRAD Repository 07/08/2018 [id number] [facility] ing:MTLAB Repository 06/30/2018/06/30/20 [id number] Ambulatory [facility] [place] [facility] Repository 06/11/2018 [id number] [facility] [place] 06/11/2018/06/11/20 [id number] [facility] [place] Repository Med AssocRoom: Room 1 04/30/2018/04/30/20 [id number] Ambulatory [facility]Building:B [place] [address] [facility] Repository 04/19/2018 [id number] [facility] ing:MTLAB Repository 03/06/2018/03/06/20 [id number] [address] Repository Med [facility]oc 01/28/2018 [id number] [facility] ing:MTLAB Repository 11/08/2017 [id number] [facility] ing:MTLAB Repository 10/29/2017/10/30/19 [id number] [place], [address] Repository [facility] PAYERS PAYERS ENCOUNTER GUARANTOR PAYER SUBSCRIBER SOURCE 07/10/2018 TATIANA A Primary TATIANA A [place] [id number] Insurance:CIGNAPolicy KOPRIVECDOB: [facility], Number: [id number] [facility] [address]Aah: [id number] Repository Date:3065-95-37RW [address] () [address]3285FTVLKWDRYIS, [place] [address]QG: 07/10/2018 Secondary NOT GIVENUNK [place] Insurance:SELF PAY [facility] [place]) Number: Effective Repository Date:2018-07-10 07/09/2018 TATIANA A SRINIVASAN Primary TATIANA A SRINIVASAN [place] [id number] Insurance:CIGNAPolicy KOPRIVECDOB: [facility] [facility], Number: [id number] [facility] [address]Njl: [id number] Repository Date:6916-36-62MP [address] () 234907FQDYWRDBKTY, [place] [address]FO: 07/09/2018 Secondary NOT GIVENUNK [place] Insurance:SELF PAY [facility], [place]) Number: Effective Repository Date:2018-07-09 07/08/2018 TATIANA A SRINIVASAN Primary TATIANA A SRINIVASAN [place] [id number] Insurance:CIGNAPolicy KOPRIVECDOB: [facility] [place], Number: [id number] [facility] [address]Pbn: [id number] Repository Date:2111-70-60OJ [address] () [address]304[address]CXWONFCCZDC, [place] [address]WR: 07/08/2018 Secondary NOT GIVENUNK [place] Insurance:SELF PAY [facility] [place]) Number: Effective Repository Date:2018-07-08 06/30/2018 TATIANA A SRINIVASAN Primary TATIANA A SRINIVASAN [place] [id number] Insurance:CIGNAPolicy KOP[facility]IVECDOB[facility], Number: [id number] Champion Regional Medical Center [address]Cjt: [id number] Repository Date:9233-01-55OQ [address]OX () 315120GMCMLTJGWOO, [place] [address]FW: 06/30/2018 Secondary NOT GIVENUNK [place] Insurance:SELF PAY [facility], [place]) Number: Effective Repository Date:2018-06-30 06/11/2018 TATIANA A Primary TATIANA A [facility] KOPRIVECDOB: Insurance:1500 CIGNA KOPRIVECDOB: [facility] [id number] System DELTA [place], Number: Effective 7 DELTA Repository [place]:2018-06-11 [place] [address]Oou: [id number] [address]Gkm: Name:CD:[id number] () BOX (HP)Tel: [phone]) [phone], [place] 000-0000 ) [address]WP: 06/11/2018 TATIANA A Primary TATIANA A [facility] KOPRIVECDOB: Insurance:1500 CIGNA KOPRIVECDOB: [facility] [id number] System DELTA [place], Number: Effective 7 DELTA Repository [place]:2018-03-06 - [place] [address]Xku: [id number] [address]Vrx: Name:CD:[id number] (HP) BOX (HP)Tel: [phone]) 610455KNFKKJOWILN, [place] 000[address]0000 () [address]PJ: 04/30/2018 Tatiana Ny Srinivasan Primary Tatiana A Srinivasan [place] [id number] Insurance:CIGNAPolicy KoprivecDOB: [facility] Delta Gokulalisha, Number: [id number] [facility] [address]Yak: [id number] Repository Date:7987-56-96ZH BOX () 671290RPJESJODQZZ [place] [address]WY: 04/30/2018 Secondary NOT GIVENUNK [place] Insurance:SELF PAY [facility] [place] Number: Effective Repository Date:2018-04-30 04/19/2018 Tatiana A Srinivasan Primary Tatiana A Srinivasan [place] [id number] Insurance:CIGNAPolicy KoprivecDOB: [facility] Delta [facility]asc[facility], Number: [id number] [facility] [address]Siq: [id number] Repository Date:8835-87-62LO BOX () [address]68[address]OEJRJDDGJZP, [place] [address]WQ: 04/19/2018 Secondary NOT GIVENUNK [place] Insurance:SELF PAY [facility] [place] Number: Effective Repository Date:2018-04-19 03/06/2018 TATIANA A Primary TATIANA A L[facility]-Day KOPRIVECDOB: Insurance:1500 CIGNA KOPRIVECDOB: [facility] [id number] [facility], Number: Effective 7 DELTA Repository [place] Date:2017-10-29 [place] [address]Gog: [id number] [address]Qcm: Name:CD:[id number] (HP) BOX (HP)Tel: [phone]) [phone], [place] 000[address]0000 () [address]RQ: 01/28/2018 Tatiana A Srinivasan Primary Tatiana A Zarina [place] [id number] Insurance:CIGNAPolicy KoprivecDOB: [facility], Number: [id number] [facility] [address]Ntu: [id number] Repository Date:3864-69-77AS BOX (HP) 386371UMCNPELIRKM, [place] [address]FU: 01/28/2018 Secondary NOT GIVENUNK [place] Insurance:SELF PAY [facility], [place]) Number: Effective Repository Date:2018-01-28 11/08/2017 Tatiana A Srinivasan Primary Tatiana A Zarina [place] [id number] Insurance:CIGNAPolicy KoprivecDOB: [facility], Number: [id number] [facility] [address]Sby: [id number] Repository Date:1785-66-04ZH BOX () 450524IEVALLLTYIM, [place] [address]YS: 11/08/2017 Secondary NOT GIVENUNK [place] Insurance:SELF PAY [facility] [place] Number: Effective Repository Date:2017-11-08 10/29/2017 TATIANA A Primary TATIANA A L[facility]-Day KOPRIVECDOB: Insurance:1500 CIGNA KOPRIVECDOB: [facility] [id number] [place] [address], Number: Effective 7 DELTA Repository [place] Date:2017-04-30 - [place] [address]Ies: [id number] [address]Brf: Name:CD:[id number] (HP) BOX (HP)Tel: (000) [phone] [place] 000-0000 (WP) [address]KC:
== END ==
PROVIDERS: Family Provider Family Medicine; PCP Family Medicine; Referring Provider Internal Medicine Rheumatology; Visit Provider Internal Medicine Rheumatology
DX: M06.4 Inflammatory polyarthropathy (principal); Z79.899 Other long term (current) drug therapy; M79.7 Fibromyalgia; M70.61 Trochanteric bursitis, right hip; M18.11 Unilateral primary osteoarthritis of first carpometacarpal joint, right hand
CPT/HCPCS: 73564

== ENCOUNTER → 2018-07-10 14:22 | Outpatient (CLI) | payer OTHER, SELFPAY ==
[2018-06-30 08:35] VITALS: BMI 50.3
[2018-07-10 15:36] LABS: Pathologist Comment May follow
[2018-07-10 17:23] LABS: RBC /Synovial Fluid 0.006 10^6/uL (0); Synovial Fld Mononuclear WBC % 77.1 %; Synovial Fld Polynuclear WBC # 0.053 10^3/ul; Synovial Fld Polynuclear WBC % 22.9 %
[2018-07-10 20:13] LABS: AUTO B FLUID DILUENT BKGD CT WBC <0.1 RBC <0.01 (W<.1,R<.01); Appearance /Synovial Fluid Turbid (CLEAR); Color / Synovial Fluid Straw (Pale Yellow); Lymph 3 %; Monocyte /Synovial Fluid 21 %; Neutrophil 20 % (0-25); Other Cell /Synovial Fluid 56 %; Source / Synovial Fluid NP0; Source- Body Fluid SYNOVIAL
[2018-07-12 10:17] LABS: Pathologist Review Reviewed
--- OUTSIDE RECORDS SUMMARY | 2018-08-26 19:24 | XMS RPT_ITS ---
:1965 Author Organization OHIP Support Name Relationship Address Phone [employer] Unavailable [address] + [place] [address] OBRECHT, FERMÍN Unavailable [address] + [place] [address] [employer] Unavailable [address] + [place] [address] OBRECHT, FERMÍN Unavailable [address] + [place] [address] [employer] Unavailable [address] + [place] [address] OBRECHT, FERMÍN Unavailable [address] + [place] [address] [employer] Unavailable [address] + [place] [address] OBRECHT, FERMÍN Unavailable [address] + [place] [address] [employer] Unavailable [address] + [place] [address] OBRECHT, FERMÍN Unavailable [address] + [place] [address] [employer] Unavailable [address] + [place] [address] OBRECHT, FERMÍN Unavailable [address] + [place] [address] [employer] Unavailable [address] + [place] [address] OBRECHT, FERMÍN Unavailable [address] + [place] [address] [employer] Unavailable [address] + [place] [address] OBRECHT, FERMÍN Unavailable [address] + [place] [address] Care Team Providers Name Role Phone Todd, [...] Referring Unavailable STENCEL, APRIL Primary Care Unavailable Silvio Barron Attending Unavailable STENCEL, APRIL Referring Unavailable STENCEL, APRIL Attending Unavailable STENCEL, APRIL Referring Unavailable STENCEL, APRIL Primary Care Unavailable Vellanki, Pamela Consulting Unavailable STENCEL, APRIL Attending Unavailable STENCEL, APRIL Referring Unavailable STENCEL, APRIL Primary Care Unavailable Vellanki, Pamela Consulting Unavailable Vellanki, Pamela Attending Unavailable Vellanki, Pamela Referring Unavailable STENCEL, APRIL Primary Care Unavailable Slime Soria Attending Unavailable STENCEL, APRIL Referring Unavailable Vellanki, Pamela Attending Unavailable Vellanki, Pamela Referring Unavailable STENCEL, APRIL Primary Care Unavailable PROBLEMS PROBLEMS DATE TYPE CONDITION / CODE ATTENDING STATUS SOURCE 07/10/2018 Unknown 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 / Community M06.4(ICD-10) Hospital Repository 07/10/2018 Unknown Z79.899 - Other long Teofilolanpiyush [facility] Active [facility] term (current) drug Community therapy / Hospital Z79.899(ICD-10) Repository 07/10/2018 Unknown M79.7 - Fibromyalgia Vellanpiyush, Pamela Active [facility] / M79.7(ICD-10) Community Hospital Repository 07/10/2018 Unknown M25.561 - Pain in Vellanki, Pamela Active [facility] right knee / Community M25.561(ICD-10) Hospital Repository [...] Unknown E11.9 - Type 2 STENCEL, Active [facility] diabetes mellitus APRIL Community without complications Hospital / E11.9(ICD-10) Repository PROCEDURES PROCEDURES No Procedure Records FoundRESULTS RESULTS SYNOVIAL FLUID RBC, Collected: 07/10/2018 Status: F Source: [facility] WBC AND DIFF 1:37 PM [facility] REPOS[facility]ORY TYPE CODE TESTS RESULT OUT OF [...] 56 Performed By: #### L200.0400, L200.4175 #### [facility] [address] [place], [address] CRYSTALS, BODY FLUID Collected: 07/10/2018 Status: C Source: [facility] 1:37 PM [facility] REPOSITORY TYPE CODE TESTS RESULT OUT OF RANGE REFERENCE UNITS LAB L200.4200 Normal SEE PATH REV CRYSTALS/BF LAB L200.4225 Normal SYNOVIAL SOURCE/BF LAB L200.6020 Normal PATH Reviewed REV Result Comment: Negative for malignant cells and crystals. Jose Conley M.D. 07/12/18 AMENDED REPORT 07/12/18 1016 PATH REV previously reported as: Will follow Performed By: #### L200.0400, L200.4175 #### [facility] [address] [place], [address] Observed: 07/10/2018 Status: F Source: [place] CULTURE, BODY FLUID 1:37 PM [facility] REPOSITORY List Antibiotics Last 48 Hours? N List Antibiotics to be Started? N Gram Stain Centrifuged Specimen? Culture performed on centrifuged specimen Gram Stain Rare Red Blood Cells No organisms seen Body Fluid Cult Culture Exhibits No Growth at 8 days Cult, Anaerobic No growth in 5 days. Performed By: #### M100.1300 #### [facility] [address] [place], [address] KNEE 4 OR MORE Observed: 07/09/2018 Status: F Source: [place] VIEWS 8:09 AM [facility] REPOSITORY [facility] Imaging Services [address] [place] [address] Knee 4 or More Views MR#: [id number] Acct: [id number] Name: TATIANA CHUN Rep #: [id number] : 1965 F 52 From: Santiago Weinberg DO PCP: April Brooks MD Status: REG CLI Study: Knee 4 or More Views Date of Exam: 07/09/18 Exam# [id number] Ordering Dr: Pamela Lentz MD STUDY: X-RAY [...] Santiago Weinberg DO at 22:12 EST Tel [phone], Service support , CC: April Brooks MD; Pamela Lentz MD Buffing Line Set Up Worker: Signed KNEE 4 OR MORE Observed: 07/09/2018 Status: F Source: [place] VIEWS 8:09 AM [facility] REPOSITORY [facility] Imaging Services [address] [place] [address] [place] [address] Knee 4 or More Views MR#: [id number] Acct: [id number] Name: ZARINA HARRELLHAMILTONTYRESEDoraTATIANA Rep #: [id number] : 1965 F 52 From: Santiago Weinberg DO PCP: April Brooks MD Status: REG CLI Study: Knee 4 or More Views Date of Exam: 07/09/18 Exam# [id number] Ordering Dr: Pamela Lentz MD STUDY: X-RAY [...] Santiago Weinberg DO at 22:12 EST Tel [phone], Service support , CC: April Brooks MD; Pamela Lentz MD Buffing Line Set Up Worker: Signed CBC W/DIFF, AUTOMATED Collected: 07/08/2018 Status: F Source: [facility] 7:13 AM [facility] REPOSITORY TYPE CODE TESTS RESULT OUT OF [...] Lymph 2.01 Performed By: #### L100.0100 #### [facility] [address] [place], [place], [address] COMPREHENSIVE METABOLIC Collected: 07/08/2018 Status: F Source: [facility] 7:13 AM [facility] REPOSITORY TYPE CODE TESTS RESULT OUT OF [...] GAP 13 Performed By: #### L500.4050 #### [facility] [address] [place], [place], [address] URGENT CARE VISIT Observed: 06/30/2018 Status: F Source: [facility] REPORT 10:55 AM [facility] REPOSITORY [facility] [address] [facility] [address] [place], [place] [address] OFFICE VISIT Date of Service: 06/30/18 MR#: [id number] Acct: [id number] Name: TATIANA CHUN Rep #: [id number] : 1965 Provider: DARIAN Soria Age/Sex: 52/F Location: [facility] Status: Signed Intake Vital Signs06/30/18 Height 5 ft 2 in 06/30/18 Weight: 275 lb 06/30/18 Body Mass Index (BMI) 50.3 06/30/18 Blood Pressure 130/84 H Intake Visit Reasons: RT KNEE PULLED MUSCLE X 2 WEEKS Chief Complaint: Right knee pain Back Filler Operator Required: No Accompanied by: SELF Is patient [...] Complaint: Right knee pain Details: TATIANA SRINIVASAN [facility], is a 52 F who presents to [...] Nutritional Appearance: overweight Orientation: alert, oriented x3 [facility] Head: normal to inspection, normocephalic Ears: [...] Status: F Source: [place] REPORT 12:19 PM [facility] [address] [place] [address] [address] [place] [address] OFFICE VISIT Date of Service: 04/30/18 MR#: [id number] Acct: [id number] Name: TATIANA CHUN Rep #: [id number] : 1965 Provider: Silvio FARMER Age/Sex: 52/F Location: [facility] Status: Signed Intake Vital Signs04/30/18 Height 5 ft 2 in 04/30/18 Weight: 275 lb 04/30/18 Body Mass Index (BMI) 50.3 04/30/18 Blood Pressure 134/88 H Intake Visit Reasons: COUGH,SORE THROAT Back Filler Operator Required: No Accompanied by: self Is patient [...] wheezing Exam Const General: cooperative, well developed [facility] Head: normal to inspection, atraumatic Ears: [...] 04/19/2018 Status: F Source: [facility] 7:15 AM [facility] REPOSITORY TYPE CODE TESTS RESULT OUT OF [...] Lymph 1.79 Performed By: #### L100.0100 #### [facility] [address] [place], [place], [address] COMPREHENSIVE METABOLIC Collected: 04/19/2018 Status: F Source: [facility] 7:15 AM [facility] REPOSITORY TYPE CODE TESTS RESULT OUT OF [...] GAP 11 Performed By: #### L500.4050 #### [facility] [address] [place], [place], [address] HEMOGLOBIN A1C Collected: 04/19/2018 Status: F Source: [place] 7:14 AM [facility] REPOSITORY TYPE CODE TESTS RESULT OUT OF RANGE REFERENCE UNITS LAB L501.9985 4.2-6.3 % Normal HGB A1C 6.1 Performed By: #### L501.9985 #### [facility] [address] [place], [address] CBC W/DIFF, AUTOMATED Collected: 01/28/2018 Status: F Source: [place] 7:23 AM [facility] REPOSITORY TYPE CODE TESTS RESULT OUT OF [...] Lymph 1.63 Performed By: #### L100.0100 #### [facility] [address] [place] [address]. [place], [place], [address] COMPREHENSIVE METABOLIC Collected: 01/28/2018 Status: F Source: [facility] 7:23 AM [facility] REPOSITORY TYPE CODE TESTS RESULT OUT OF [...] GAP 10 Performed By: #### L500.4050 #### [facility] [address] [place], [address] CBC W/DIFF, AUTOMATED Collected: 11/08/2017 Status: F Source: [place] 7:14 AM [facility] REPOSITORY TYPE CODE TESTS RESULT OUT OF [...] Lymph 1.97 Performed By: #### L100.0100 #### [facility] [address] [place], [place], [address] COMPREHENSIVE METABOLIC Collected: 11/08/2017 Status: F Source: [facility] 7:14 AM [facility] REPOSITORY TYPE CODE TESTS RESULT OUT OF [...] GAP 11 Performed By: #### L500.4050 #### [facility] [address] [facility] [place], [place], [address] HEMOGLOBIN A1C Collected: 11/08/2017 Status: F Source: [place] 7:14 AM [facility] REPOSITORY TYPE CODE TESTS RESULT OUT OF RANGE REFERENCE UNITS LAB L501.9985 4.2-6.3 % High HGB A1C 7.6 Performed By: #### L501.9985 #### [facility] [address] [facility] [place], [place], [address] ALLERGIES ALLERGIES DATE TYPE / CODE NAME / CODE REACTION SEVERITY SOURCE 06/30/2018 Drug cephalexin Hives Unknown [facility] Allergy/416 monohydrate/F0000 Community 394219([facility] 14926(RXNORM) Hospital ED CT) Repository 06/30/2018 Drug Sulfa Hives Unknown [facility] Allergy/416 (Sulfonamide Community 808179([facility] Antibiotics)/F[address]) 477197(RXNORM) Repository 06/30/2018 Drug adhesive/U5318458 Hives Unknown [facility] Allergy/416 45(RXNORM) Community 925503([facility] ED CT) Repository 06/30/2018 Drug levofloxacin/F006 Hives Unknown [facility] Allergy/416 580571(RXNORM) Community 440073([facility] ED CT) Repository 06/30/2018 Drug latex/Z108769593( Hives Unknown [facility] Allergy/416 RXNORM) Community 875146([facility] ED CT) Repository Environment Latex [facility]orship /648289347( [facility] SNOMED CT) System Repository Drug/277702 Bactrim 11831828 Worship 003([facility] CT) System Repository Drug/126222 Keflex Worship 003([facility] CT) System Repository Drug/546153 Levaquin Worship 003([facility] CT) System Repository ENCOUNTERS ENCOUNTERS ADMIT/DISCHARGE ACCOUNT NUMBER ADMITTING ENCOUNTER LOCATION SOURCE CLASS 07/10/2018 [id number] Ambulatory [facility] ing:LABSPEC Repository 07/09/2018 [id number] [facility] ing:HPRAD Repository 07/08/2018 [id number] [facility] ing:MTLAB Repository 06/30/2018/06/30/20 [id number] Ambulatory BMSBuilding:B [place] [address] Repository 06/11/2018 [id number] [facility] [place] 06/11/2018/06/11/20 [id number] Ambulatory [facility] [address] [place] Repository Med AssocRoom: Room 1 04/30/2018/04/30/20 [id number] Ambulatory BMSBuilding:B [place] [address] [facility] Repository 04/19/2018 [id number] [facility] ing:MTLAB Repository 03/06/2018/03/06/20 [id number] [address] Repository [facility] 01/28/2018 [id number] [facility] ing:MTLAB Repository 11/08/2017 [id number] [facility] ing:MTLAB Repository 10/29/2017/10/30/19 [id number] [place], [address] Repository Med [facility]oc PAYERS PAYERS ENCOUNTER GUARANTOR PAYER SUBSCRIBER SOURCE 07/10/2018 TATIANA A Primary TATIANA A [facility] [id number] Insurance:CIGNAPolicy KOPRIVECDOB: [facility] Number: [id number]: [id number] Repository Date:1851-73-95JH [address] () [address]AEUKGJVKJBZ, [place] [address]VW: 07/10/2018 Secondary NOT GIVENUNK [place] Insurance:SELF PAY [facility] Number: Effective Repository Date:2018-07-10 07/09/2018 TATIANA A SRINIVASAN Primary TATIANA A SRINIVASAN [place] [id number] Insurance:CIGNAPolicy KOPRIVECDOB: [facility] [facility], Number: [id number]: [id number] Repository Date:0637-05-31OE [address] () [address]30[address]AQBAETIBJTU, [place] [address]YM: 07/09/2018 Secondary NOT GIVENUNK [facility] Insurance:SELF PAY [facility] Number: Effective Repository Date:2018-07-09 07/08/2018 TATIANA A SRINIVASAN Primary TATIANA A SRINIVASAN [facility] [id number] Insurance:CIGNAPolicy KOPRIVECDOB: [facility] [place], Number: [id number]: [id number] Repository Date:1102-93-71ZJ [address]OX () [address]25[address]TLYTVDDEALU, [place] [address]XN: 07/08/2018 Secondary NOT GIVENUNK [place] Insurance:SELF PAY [facility] Number: Effective Repository Date:2018-07-08 06/30/2018 TATIANA A SRINIVASAN Primary TATIANA A SRINIVASAN [facility] [id number] Insurance:CIGNAPolicy [facility]CD[facility], Number: [id number]: [id number] Repository Date:7816-60-89VE [address] () [address]IKBYBDZXQLP, [place] [address]OX: 06/30/2018 Secondary NOT GIVENUNK [facility] Insurance:SELF PAY [facility] Number: Effective Repository Date:2018-06-30 06/11/2018 TATIANA A Primary TATIANA A Worship KOPRIVECDOB: Insurance:1500 CIGNA KOPRIVECDOB: [facility] [id number] System [place], Number: Effective 7 [place] Repository [place] Date:2018-06-11 - [place] [address]Vfl: [id number] [address]Tsx: Name:CD:[id number] () BOX (HP)Tel: [phone]) [phone], [place] 000-0000 ) [address]WP: 06/11/2018 TATIANA A Primary TATIANA A Worship KOPRIVECDOB: Insurance:1500 CIGNA KOPRIVECDOB: [facility] [id number] System [place], Number: Effective 7 [place] Repository [place] Date:2018-03-06 - [place] [address]Wqg: [id number] [address]Vxm: Name:CD:[id number] (HP) BOX (HP)Tel: (136) 150024SJYVIHXULZF, [place] 000[address] () [address]DU: 04/30/2018 Tatiana Ny Srinivasan Primary Tatiana A Srinivasan [place] [id number] Insurance:CIGNAPolicy KoprivecDOB: [facility] [place]okulalisha, Number: [id number]: [id number] Repository Date:0708-65-62TV BOX () [address]SINKMLOIOSJ [place] [address]AL: 04/30/2018 Secondary NOT GIVENUNK [facility] Insurance:SELF PAY [facility] Number: Effective Repository Date:2018-04-30 04/19/2018 Tatiana A Srinivasan Primary Tatiana A Srinivasan [place] [id number] Insurance:CIGNAPolicy KoprivecDOB: [facility], Number: [id number]: [id number] Repository Date:1456-76-89VA BOX () 498453ZBXIHTELBOL, [place] [address]PT: 04/19/2018 Secondary NOT GIVENUNK [facility] Insurance:SELF PAY [facility] Number: Effective Repository Date:2018-04-19 03/06/2018 TATIANA A Primary TATIANA A Worship KOPRIVECDOB: Insurance:1500 CIGNA KOPRIVECDOB: [facility] [id number] [facility], Number: Effective 7 [place] Repository [place] Date:2017-10-29 - [place] [address]Dtr: [id number] [address]Xpy: Name:CD:[id number] (HP) BOX (HP)Tel: (000) [phone], [place] 000[address] () [address]DO: 01/28/2018 Tatiana A Srinivasan Primary Tatiana A Zarina [facility] [id number] Insurance:CIGNAPolicy KoprivecDOB: [facility], Number: [id number]: [id number] Repository Date:6166-85-61BP BOX (HP) 154[address]DSLGBSBMTJC, [place] [address]TP: 01/28/2018 Secondary NOT GIVENUNK [facility] Insurance:SELF PAY [facility] Number: Effective Repository Date:2018-01-28 11/08/2017 Tatiana A Srinivasan Primary Tatiana A Zarina [place] [id number] Insurance:CIGNAPolicy KoprivecDOB: [facility], Number: [id number]: [id number] Repository Date:5709-36-93IV BOX () [address]6891YCRPDNJMBPU, [place] [address]PH: 11/08/2017 Secondary NOT GIVENUNK [facility] Insurance:SELF PAY [facility] Number: Effective Repository Date:2017-11-08 10/29/2017 TATIANA A Primary TATIANA A Worship KOPRIVECDOB: Insurance:1500 CIGNA KOPRIVECDOB: [facility] [id number] [place] [address], Number: Effective 7 [place] Repository [place] Date:2017-04-30 - [place] [address]Zjk: [id number] [address]Bdw: Name:CD:[id number] (HP) BOX (HP)Tel: (000) [phone] [place] 000[address] (WP) [address]BL:
== END ==
PROVIDERS: Family Provider Family Medicine; PCP Family Medicine; Referring Provider Internal Medicine Rheumatology; Visit Provider Internal Medicine Rheumatology
DX: M06.4 Inflammatory polyarthropathy (principal); M79.7 Fibromyalgia; M25.561 Pain in right knee; M18.11 Unilateral primary osteoarthritis of first carpometacarpal joint, right hand; F32.89 Other specified depressive episodes; J45.909 Unspecified asthma, uncomplicated; Z79.899 Other long term (current) drug therapy
CPT/HCPCS: 87070; 87075; 87205; 89050; 89051; 89060

== ENCOUNTER → 2018-09-26 07:03 | Outpatient (CLI) | payer OTHER, SELFPAY ==
[2018-06-30 08:35] VITALS: BMI 50.3
[2018-09-26 10:06] LABS: Absolute Lymphocyte Count 2.07 X10^3/ul (0.83-4.51); Absolute Neutrophil Count 3.6 X10^3/uL (2.0-7.7); Basophil# 0.04 X10^3/uL; Basophil% 0.6 % (0-1); Eosinophil# 0.11 X10^3/uL; Eosinophils% 1.7 % (0-5); Hematocrit 37.5 % (37-47); Hemoglobin 11.9 g/dl (12.0-15.0); Lymphocyte # 2.07 X10^3/ul (4.0); Lymphocyte % 32.1 % (19-41); Mean Corp Hgb Conc 31.7 g/gl (32-36); Mean Corpuscular Hgb 29.8 pg (27.0-32.0); Mean Platelet Vol. 11.2 fl (6.2-12.0); Monocyte# 0.58 X10^3/uL; Neutrophil # 3.64 X10^3/uL (2.7-7.7); Neutrophil % 56.4 % (47-70); Platelet Count 298 K/mm3 (150-450); RBC Distribution Width CV 13.6 % (11.6-14.6); RBC Distribution Width SD 46.6 fl (35.1-43.9); Red Blood Count 3.99 M/mm3 (4.2-5.4); White Blood Count 6.5 K/mm3 (4.4-11.0)
[2018-09-26 10:10] LABS: POSITIVE COUNT NO; POSITIVE DIFFERENTIAL NO; POSITIVE MORPHOLOGY NO
[2018-09-26 10:29] LABS: ALB/GLOB Ratio 1.1 RATIO (0.9-2.4); AST(SGOT) 12 U/L (15-37); Alanine Aminotransfer ALT/SGPT 13 U/L (13-56); Albumin, Serum 3.3 g/dL (3.2-5.0); Alkaline Phosphatase 83 U/L (45-117); Anion Gap 11 (5-15); BUN 20 mg/dL (7-18); BUN/Creat Ratio 25.1 RATIO (10-20); Chloride 108 mmol/L (98-107); EST Glomerular Filtration Rate 80 mL/min (>60); Est Glom Filt Rate - Afr Amer 97 mL/min (>60); Globulin 3.1 g/dL (2.2-4.2); Glucose 177 mg/dL (74-106); Potassium 4.1 mmol/L (3.5-5.1); Protein, Total 6.4 g/dL (6.4-8.2); Sodium Level 139 mmol/L (136-145)
== END ==
PROVIDERS: Family Provider Family Medicine; PCP Family Medicine; Referring Provider Internal Medicine Rheumatology; Visit Provider Internal Medicine Rheumatology
DX: M06.4 Inflammatory polyarthropathy (principal); M79.7 Fibromyalgia; M70.61 Trochanteric bursitis, right hip; M18.11 Unilateral primary osteoarthritis of first carpometacarpal joint, right hand; Z79.899 Other long term (current) drug therapy
CPT/HCPCS: 36415; 80053; 85025

== ENCOUNTER 2018-11-09 17:33 | Emergency (ER) | payer OTHER, SELFPAY ==
[2018-11-01 06:13] VITALS: BMI 50.3
[2018-11-09] VITALS (7 sets, daily range): BP systolic 136–171; BP diastolic 67–93; PULSE 80–121; RESP 16–20; TEMP 37.1; O2SAT 96–99; BMI 53.8
--- NOTE | 2018-11-09 17:34 | EKG12_ITS ---
Test Reason : ALLERGIC REACTION Blood Pressure : / mmHG Vent. Rate : 092 BPM Atrial Rate : 092 BPM P-R Int : 144 ms QRS Dur : 072 ms QT Int : 372 ms P-R-T Axes : 038 -03 048 degrees QTc Int : 460 ms Normal sinus rhythm Normal ECG Confirmed by CESAR SANCHEZ, OMAR ([id number]), make up editor KAMILA [place] ([id number]) on 11/13/2018 9:01:29 AM Referred By: LUPILLO Confirmed By:OMAR GUERRERO MD
[2018-11-09] MEDS: Racepinephrine HCl 0.5 ML VIAL.NEB. INHALATION (17:38)
[2018-11-09] MEDS: DiphenhydrAMINE 50 MG/ML Syringe 25 MG IV (17:40)
[2018-11-09] MEDS: MethylPREDNISolone 125 MG/2 ML Vial IV (17:40)
[2018-11-09 17:52] LABS: Absolute Lymphocyte Count 3.72 X10^3/ul (0.83-4.51); Absolute Neutrophil Count 4.7 X10^3/uL (2.0-7.7); Basophil# 0.06 X10^3/uL; Basophil% 0.6 % (0-1); Eosinophil# 0.18 X10^3/uL; Eosinophils% 1.9 % (0-5); Hematocrit 41.6 % (37-47); Hemoglobin 13.5 g/dl (12.0-15.0); Lymphocyte # 3.72 X10^3/ul (4.0); Lymphocyte % 39.8 % (19-41); Mean Corp Hgb Conc 32.5 g/gl (32-36); Mean Corpuscular Hgb 29.2 pg (27.0-32.0); Mean Platelet Vol. 10.7 fl (6.2-12.0); Monocyte# 0.65 X10^3/uL; Neutrophil % 50.4 % (47-70); POSITIVE COUNT NO; POSITIVE DIFFERENTIAL NO; POSITIVE MORPHOLOGY NO; Platelet Count 340 K/mm3 (150-450); RBC Distribution Width CV 13.2 % (11.6-14.6); Red Blood Count 4.62 M/mm3 (4.2-5.4); White Blood Count 9.3 K/mm3 (4.4-11.0)
[2018-11-09] MEDS: Albuterol 2.5 MG/3 ML VIAL.NEB. INHALATION (18:00)
[2018-11-09 18:11] LABS: Anion Gap 10 (5-15); BUN 14 mg/dL (7-18); Calcium,Total 8.2 mg/dL (8.5-10.1); Chloride 107 mmol/L (98-107); Creatinine, Serum 1.17 mg/dL (0.55-1.02); EST Glomerular Filtration Rate 51 mL/min (>60); Est Glom Filt Rate - Afr Amer 62 mL/min (>60); Estimated Creatinine Clearance 48.02 ml/min; Glucose 218 mg/dL (74-106); Potassium 3.6 mmol/L (3.5-5.1); Sodium Level 138 mmol/L (136-145)
--- NOTE | 2018-11-09 20:17 | ED.DCSUM_ITS ---
History of Present Illness Chief Complaint: Allergic Reaction Informant: Patient, Friend Onset: Today Context: Sudden Onset Timing: Continuous Quality: Swelling lips, tongue, throat, trouble breathing and rash Location: Generalized Current Severity: Severe Maximum Severity: Severe Worsened by: Unknown Relieved by: Nothing Associated Symptoms: Anaphylactic reaction Narrative: Patient is a middle-aged woman who presents with anaphylactic reaction. She reports rash that is pruritic, swelling of her lips, tongue throat with change in voice. She reports difficulty breathing. She reports lightheadedness with standing. She reports nausea with no vomiting diarrhea. She has no other complaints. She has no known allergies. Prior similar symptoms: No Recent Illness/Hospitalization: No Past Medical History - Allergies and Home Meds Allergies/Adverse Reactions: Allergies adhesive Allergy (Verified 11/09/18 17:43) Hives cephalexin monohydrate [From Keflex] Allergy (Verified 11/09/18 17:43) Hives latex Allergy (Verified 11/09/18 17:43) Hives levofloxacin [From Levaquin] Allergy (Verified 11/09/18 17:43) Hives Sulfa (Sulfonamide Antibiotics) Allergy (Verified 11/09/18 17:43) Hives Primary Care Physician: Fernando Brooks MD [Primary Care Provider] - Past Medical History: None Surgical History: noncontributory Lives: Alone Smoking Status: Never smoker Alcohol: Occasional Drugs: None Review of Systems General: Denies: Chills, Fever, Subjective, Sweats Eyes: Denies: Visual changes - bilaterally, Blurred Vision - bilaterally, Diplopia ENT: Reports: - - Hoarse voice, throat and tongue swelling. Denies: Bilateral ear pain, Rhinorrhea, Sore throat Cardiovascular: Reports: Palpitations. Denies: Chest pain Respiratory: Reports: Dyspnea, Cough, Dyspnea on exertion. Denies: Sputum Gastrointestinal: Reports: Nausea. Denies: Abdominal pain, Vomiting, Diarrhea, Constipation, Melena, Hematochezia, -, - Musculoskeletal: Denies: Myalgias, Arthralgias, Neck pain, Back pain, Swelling, Extremity Pain, -, - Skin: Reports: Rash Neurological: Denies: Headache, Weakness, Parasthesia, Numbness, -, - Endocrine: Denies: Polyuria, Polydipsia, Heat intolerance, Cold intolerance, -, - Hematologic: Denies: Easy bruising, Easy bleeding, Lymphadenopathy, -, - Allergy: Reports: Uticaria, Swelling of the mouth, Swelling of the tongue - He has thank you Physical Exam Vital Signs/Narrative: Vital Signs Temp Pulse Resp BP Pulse Ox 11/09/18 18:44 89 19 H 171/67 H 99 11/09/18 18:00 96 18 11/09/18 17:38 118 H 18 11/09/18 17:34 98.7 F 121 H 18 136/93 H 96 Inital Vital Signs reviewed: Yes General: Well nourished, Well developed, Acute Distress Head: Normocephalic, Atraumatic Eyes: Perrl, EOMI. Negative for: Pale conjunctiva, Scleral icterus ENT: Moist mucous membranes, No rhinorrhea, TM's clear, - - Uvula is swollen. Tongue is swollen. Neck: Supple, Nontender, No lymphadenopathy, No JVD, - - Trachea is midline. There is stridor. Cardiovascular: Regular rate, Regular rhythm, No murmurs, Normal S1, Normal S2 Respiratory: Chest nontender, Wheezing, Decreased Air Movement Abdomen: Soft, Nontender, Nondistended, Normal bowel sounds, No masses Back: Nontender, Normal Inspection Skin: Rash - Generalized erythematous rash with urticaria. Negative for: Cyanosis, Jaundice Neurological: Alert, Oriented x3, Cranial nerves II-XII grossly intact, Normal Strength, Normal Sensation, Normal Gait Psychological: Normal affect, Normal Mood Diagnostic/Tx/Re-eval - Medical Decision Making Patient presents with anaphylactic reaction. She was treated with epinephrine 0.3 IM, 125 mg Solu-Medrol, 25 mg of Benadryl IV push, 20 mill grams of Pepcid IV push, racemic epinephrine and albuterol. She was placed on a monitor. She is been under constant supervision by nursing staff and reevaluated by me. Last reassessment at 2014 patient's rash has resolved. Her voice has returned to normal. There is no evidence of angioedema. Lungs are clear to auscultation. Patient was informed she will be here until midnight. Patient was reassessed at 2144. She has no symptoms presently. Her rash has totally resolved. Case will be turned over to Dr. Hoang to make disposition at midnight. Patient will be discharged with prescription for EpiPen. - Critical Care Time Critical care time (excluding procedures): 30-74 minutes, Discussing w/Patient &/or Family/Aerial Advertiser - 33 minutes, Performing Direct Patient Care at Bedside ED Disposition - Plan for ED Patient: Disposition: Home or Assisted Living Diagnosis: Anaphylaxis, Angioedema, Acute bronchospasm Instructions: ED Anaphylaxis General Prescriptions: Epi Pen (for allergic rxn) 0.3 mg IM X1 #2 syringe Referrals: Fernando Brooks MD [Primary Care Provider] - Additional Instructions: Carry EpiPen with you at all times. You cannot leave the EpiPen in your car. You need to follow-up with patrol supervisor for testing to determine what caused your reaction.
[2018-11-10 00:04] VITALS: BP 180/85; PULSE 100; RESP 18; O2SAT 98
== END 2018-11-10 00:06 | disposition home or self-care (01) ==
PROVIDERS: Emergency Provider Emergency Medicine; Family Provider Family Medicine; PCP Family Medicine
DX: T78.2XXA Anaphylactic shock, unspecified, initial encounter (principal); T78.3XXA Angioneurotic edema, initial encounter; J98.01 Acute bronchospasm
CPT/HCPCS: 80048; 85025; 93005; 94640; 96372; 96374; 96375; 99285; A4216; J3490

== ENCOUNTER → 2018-12-17 07:02 | Outpatient (CLI) | payer OTHER, SELFPAY ==
[2018-11-09 17:34] VITALS: BMI 53.8
[2018-12-17 10:18] LABS: Absolute Neutrophil Count 3.5 X10^3/uL (2.0-7.7); Basophil# 0.05 X10^3/uL; Basophil% 0.9 % (0-1); Eosinophil# 0.17 X10^3/uL; Eosinophils% 2.9 % (0-5); Hematocrit 37.9 % (37-47); Hemoglobin 12.4 g/dl (12.0-15.0); Mean Corp Hgb Conc 32.7 g/gl (32-36); Mean Corpuscular Hgb 29.3 pg (27.0-32.0); Mean Corpuscular Volume 89.6 fL (81-99); Mean Platelet Vol. 11.2 fl (6.2-12.0); Monocyte% 6.8 % (0-10); Neutrophil # 3.54 X10^3/uL (2.7-7.7); Neutrophil % 60.2 % (47-70); Platelet Count 251 K/mm3 (150-450); RBC Distribution Width CV 13.5 % (11.6-14.6); RBC Distribution Width SD 43.5 fl (35.1-43.9); Red Blood Count 4.23 M/mm3 (4.2-5.4); White Blood Count 5.9 K/mm3 (4.4-11.0)
[2018-12-17 10:21] LABS: POSITIVE COUNT NO; POSITIVE DIFFERENTIAL NO; POSITIVE MORPHOLOGY NO
[2018-12-17 10:38] LABS: AST(SGOT) 13 U/L (15-37); Alanine Aminotransfer ALT/SGPT 18 U/L (13-56); Albumin, Serum 3.3 g/dL (3.2-5.0); Alkaline Phosphatase 80 U/L (45-117); Anion Gap 11 (5-15); BUN 9 mg/dL (7-18); BUN/Creat Ratio 11.3 RATIO (10-20); Calcium,Total 8.2 mg/dL (8.5-10.1); Chloride 104 mmol/L (98-107); Creatinine, Serum 0.79 mg/dL (0.55-1.02); EST Glomerular Filtration Rate 80 mL/min (>60); Est Glom Filt Rate - Afr Amer 97 mL/min (>60); Globulin 3.4 g/dL (2.2-4.2); Glucose 151 mg/dL (74-106); Potassium 3.8 mmol/L (3.5-5.1); Protein, Total 6.7 g/dL (6.4-8.2); Sodium Level 139 mmol/L (136-145)
[2018-12-17 14:37] LABS: Erythrocyte Sedimentation Rate 15 mm/hr (0-30)
[2018-12-17 15:05] LABS: Bilirubin, Direct 0.18 mg/dL (0.00-0.30); Uric Acid 4.4 mg/dL (2.6-6.0)
== END ==
PROVIDERS: Family Provider Family Medicine; PCP Family Medicine; Referring Provider Internal Medicine Rheumatology; Visit Provider Internal Medicine Rheumatology
DX: M06.4 Inflammatory polyarthropathy (principal); M79.7 Fibromyalgia; M70.61 Trochanteric bursitis, right hip; M18.11 Unilateral primary osteoarthritis of first carpometacarpal joint, right hand; Z79.899 Other long term (current) drug therapy; Z87.892 Personal history of anaphylaxis; Z91.038 Other insect allergy status
CPT/HCPCS: 36415; 80053; 82248; 82306; 83520; 84443; 84550; 85025; 85652

== ENCOUNTER 2019-02-17 10:29 | Day surgery (SDC) | payer OTHER, SELFPAY ==
[2018-11-09 17:34] VITALS: BMI 53.8
[2019-02-11 08:27] VITALS: BP 142/73; PULSE 71; RESP 18; TEMP 36.4; O2SAT 98; BMI 53.3
[2019-02-11 08:58] LABS: Hematocrit 40.6 % (37-47); Hemoglobin 13.1 g/dL (12.0-15.0); Mean Corp Hgb Conc 32.3 g/dL (32-36); Mean Corpuscular Hgb 29.9 pg (27.0-32.0); Mean Corpuscular Volume 92.7 fL (81-99); Mean Platelet Vol. 10.7 fl (6.2-12.0); Platelet Count 263 K/mm3 (150-450); RBC Distribution Width CV 13.4 % (11.6-14.6); RBC Distribution Width SD 45.8 fl (35.1-43.9); Red Blood Count 4.38 M/mm3 (4.2-5.4); White Blood Count 6.4 K/mm3 (4.4-11.0)
[2019-02-11 09:06] LABS: Anion Gap 6 (5-15); BUN 8 mg/dL (7-18); BUN/Creat Ratio 9.9 RATIO (10-20); Calcium,Total 8.4 mg/dL (8.5-10.1); Chloride 107 mmol/L (98-107); Creatinine, Serum 0.81 mg/dL (0.55-1.02); EST Glomerular Filtration Rate 78 mL/min (>60); Est Glom Filt Rate - Afr Amer 95 mL/min (>60); Estimated Creatinine Clearance 68.56 ml/min; Glucose 157 mg/dL (74-106); Potassium 4.2 mmol/L (3.5-5.1); Sodium Level 139 mmol/L (136-145)
[2019-02-11 09:21] LABS: Hemoglobin A1c 7.5 % (4.2-6.3)
[2019-02-17 10:51] LABS: Internal QC Validated? YES +Cl - CLEAR BKGD
[2019-02-17 10:54] LABS: Pregnancy, Urine Negative Negative
[2019-02-17 11:24] VITALS: BP 155/79; PULSE 67; RESP 16; TEMP 36.7; O2SAT 97; BMI 55.0
[2019-02-17 12:06] LABS: Bedside Glucose 193 mg/dL (70-110)
[2019-02-17] MEDS: Bupiv/Epi 0.5% Mpf 30 ML Vial (13:10)
[2019-02-17 13:39] VITALS: BP 115/79; BP 155/79; PULSE 94; RESP 16; TEMP 36.3; O2SAT 94
[2019-02-17 13:45] VITALS: BP 119/72; BP 155/79; PULSE 90; RESP 16; O2SAT 95
[2019-02-17 14:00] VITALS: BP 130/68; BP 155/79; PULSE 86; RESP 16; O2SAT 97
--- NOTE | 2019-02-17 14:07 | PCM.OPRPT ---
Report of Operation Date of Procedure: 02/17/19 Pre-Operative Diagnosis: Medial and lateral meniscal tears with arhtritis right knee Post-Operative Diagnosis: same Surgery/Procedure Performed:: Diagnostic and Operative arthroscopy with partial medial and lateral meniscectomies and tricompartmental chondroplasty right knee Description of Surgical Findings:: Primary Surgeon/Physician: Fernando Stewart refractory products supervisor: refractory products supervisor: Pre-Operative Diagnosis: Medial and lateral meniscus tears with tricompartmental arthritis right knee Post-Operative Diagnosis: same with grade 3 chondromalacia of the MFC, grade 2 chondromalacia of the LFC, 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 Procedure Description: The patient was greeted in the preoperative area. The [right ] knee was marked with surgical marker. Preoperative antibiotics were administered. The patient was then taken to the operating suite and placed in a supine position on operating room table. After adequate anesthesia was obtained and airway was secured a well-padded tourniquet was placed on patient's affected extremity. Leg was then prepped and draped in usual sterile fashion. Surgical timeout was performed and confirmed with all present and surgery was commenced. The anterolateral portal was established and the diagnostic arthroscopy was begun. The patellofemoral joint revealed that there was grade 2 chondromalacia of the trochlear groove of the femur. The medial compartment was entered and the anteromedial portal was established under direct visualization. A probe was utilized to probe the medial meniscus and a horizontal tear of the posterior horn with posteriorly based radial component was noted. There was diffuse grade 3 chondromalacia of the medial femoral condyle. The ACL and PCL were probed and intact. The lateral compartment was entered. There was a multilayered tear of the lateral meniscus emanating from the posterior horn to the midportion of the meniscus. There was diffuse grade 2 chondromalacia of the later femoral condyle and the lateral tibial plateau. Straight basket punches were used to perform a partial lateral meniscectomy. The meniscal fragments were removed with a shaver and the shaver was used to perform a chondroplasty on the lateral femoral condyle and lateral tibial plateau. The meniscus was shaved to a firm and stable rim and the articular cartilage was stabilized such that there was no delaminating cartilage. In a similar fashion, attention was brought to the medial compartment and a partial medial meniscectomy was performed with straight and angled basket punches. The meniscal fragments were removed with the shaver and the shaver was used to smooth the meniscus to a firm and stable rim. The shaver was then used to perform a chondroplasty on the medial femoral condyle. Any loose or delaminating cartilage was removed and smoothed down. The shaver was then used to perform a chondroplasty on the trochlear groove of the femur. At this point all instruments were removed. Arthroscopic portals were closed in a standard fashion. 30 cc of 0.5% Marcaine was then injected into the knee. Well-padded nonadherent dressing was applied and secured with an Da wrap. The patient was extubated and sent to PACU in stable and satisfactory condition. Type of Anesthesia:: General Anesthesiologist: Juan Carlos Macedo - Admit VTE Documentation VTE Present on Admission: No VTE Mechan Device Prophylaxis: SCD's VTE Pharm Prophylaxis ordered?: No Reason prophylaxis not ordered:: Treatment Not Indicated
[2019-02-17 14:15] VITALS: BP 131/70; BP 155/79; PULSE 93; RESP 16; TEMP 36.1; O2SAT 98
[2019-02-17 14:15] LABS: Bedside Glucose 153 mg/dL (70-110)
[2019-02-17] MEDS: HYDROcodone Bitartrate/Apap 5/325 Tablet PO ×2 (14:22→14:49)
[2019-02-17 15:37] VITALS: BP 150/73; BP 155/79; PULSE 62; RESP 16; TEMP 36.2; O2SAT 99
== END 2019-02-17 15:56 | disposition home or self-care (01) ==
LOC: SDC 10:30 → AC 10:30
PROVIDERS: Anesthesiology; Family Provider Family Medicine; PCP Family Medicine; Referring Provider Orthopaedic Surgery; Visit Provider Orthopaedic Surgery
PROC: (CPT 29870; principal; 2019-02-17 12:20)
DX: S83.241A Other tear of medial meniscus, current injury, right knee, initial encounter (principal); S83.281A Other tear of lateral meniscus, current injury, right knee, initial encounter; X58.XXXA Exposure to other specified factors, initial encounter; Y93.9 Activity, unspecified; Y92.9 Unspecified place or not applicable; M94.261 Chondromalacia, right knee; M17.11 Unilateral primary osteoarthritis, right knee; M79.7 Fibromyalgia; E11.69 Type 2 diabetes mellitus with other specified complication; E66.9 Obesity, unspecified; Z68.43 Body mass index [BMI] 50.0-59.9, adult; Z79.899 Other long term (current) drug therapy
CPT/HCPCS: 01400; 29880; 80048; 81025; 82962; 83036; 85027; J7120; J2405

== ENCOUNTER → 2019-03-20 07:05 | Outpatient (CLI) | payer OTHER, SELFPAY ==
[2019-03-20 10:00] LABS: Absolute Lymphocyte Count 2.56 X10^3/uL (0.83-4.51); Basophil% 1.3 % (0-1); Eosinophil# 0.44 X10^3/uL; Eosinophils% 5.7 % (0-5); Hematocrit 37.9 % (37-47); Hemoglobin 11.9 g/dL (12.0-15.0); Lymphocyte # 2.56 X10^3/ul (4.0); Mean Corp Hgb Conc 31.4 g/dL (32-36); Mean Corpuscular Hgb 29.7 pg (27.0-32.0); Mean Corpuscular Volume 94.5 fL (81-99); Monocyte% 7.7 % (0-10); NRBC Flagged by Analyzer 0 % (0-5); Neutrophil # 4.03 X10^3/uL (2.7-7.7); Platelet Count 286 K/mm3 (150-450); RBC Distribution Width CV 13.3 % (11.6-14.6); Red Blood Count 4.01 M/mm3 (4.2-5.4); White Blood Count 7.8 K/mm3 (4.4-11.0)
[2019-03-20 10:21] LABS: Hemoglobin A1c 6.8 % (4.2-6.3)
[2019-03-20 10:36] LABS: ALB/GLOB Ratio 1.1 RATIO (0.9-2.4); AST(SGOT) 14 U/L (15-37); Alanine Aminotransfer ALT/SGPT 16 U/L (13-56); Albumin, Serum 3.7 g/dL (3.2-5.0); Alkaline Phosphatase 81 U/L (45-117); Anion Gap 7 (5-15); BUN 15 mg/dL (7-18); BUN/Creat Ratio 17.5 RATIO (10-20); Calcium,Total 8.2 mg/dL (8.5-10.1); Chloride 108 mmol/L (98-107); Creatinine, Serum 0.86 mg/dL (0.55-1.02); EST Glomerular Filtration Rate 73 mL/min (>60); Est Glom Filt Rate - Afr Amer 89 mL/min (>60); Globulin 3.3 g/dL (2.2-4.2); Glucose 132 mg/dL (74-106); Potassium 3.8 mmol/L (3.5-5.1); Sodium Level 140 mmol/L (136-145)
== END ==
PROVIDERS: Family Provider Family Medicine; PCP Family Medicine; Referring Provider Internal Medicine Rheumatology; Visit Provider Internal Medicine Rheumatology
DX: M06.4 Inflammatory polyarthropathy (principal); M79.7 Fibromyalgia; M70.61 Trochanteric bursitis, right hip; M18.11 Unilateral primary osteoarthritis of first carpometacarpal joint, right hand; E11.9 Type 2 diabetes 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s; E06.9 Thyroiditis, unspecified; L30.9 Dermatitis, unspecified; Z79.899 Other long term (current) drug therapy
CPT/HCPCS: 36415; 80053; 83036; 85025

== ENCOUNTER → 2019-06-20 07:01 | Outpatient (CLI) | payer OTHER, SELFPAY ==
[2019-06-20 10:15] LABS: Absolute Lymphocyte Count 2.09 X10^3/uL (0.83-4.51); Absolute Neutrophil Count 2.3 X10^3/uL (2.0-7.7); Basophil# 0.08 X10^3/uL; Basophil% 1.6 % (0-1); Eosinophil# 0.27 X10^3/uL; Eosinophils% 5.3 % (0-5); Hematocrit 35.7 % (37-47); Hemoglobin 11.5 g/dL (12.0-15.0); Lymphocyte # 2.09 X10^3/ul (4.0); Lymphocyte % 40.9 % (19-41); Mean Corp Hgb Conc 32.2 g/dL (32-36); Mean Corpuscular Hgb 29.9 pg (27.0-32.0); Mean Corpuscular Volume 92.7 fL (81-99); Mean Platelet Vol. 11.2 fl (6.2-12.0); Monocyte# 0.32 X10^3/uL; Monocyte% 6.3 % (0-10); NRBC Flagged by Analyzer 0 % (0-5); Neutrophil # 2.34 X10^3/uL (2.7-7.7); Neutrophil % 45.7 % (47-70); Platelet Count 268 K/mm3 (150-450); RBC Distribution Width CV 12.9 % (11.6-14.6); RBC Distribution Width SD 43.5 fl (35.1-43.9); Red Blood Count 3.85 M/mm3 (4.2-5.4); White Blood Count 5.1 K/mm3 (4.4-11.0)
[2019-06-20 10:37] LABS: ALB/GLOB Ratio 1.2 RATIO (0.9-2.4); AST(SGOT) 16 U/L (15-37); Alanine Aminotransfer ALT/SGPT 18 U/L (13-56); Albumin, Serum 3.6 g/dL (3.2-5.0); Alkaline Phosphatase 80 U/L (45-117); Anion Gap 9 (5-15); BUN 13 mg/dL (7-18); BUN/Creat Ratio 17.9 RATIO (10-20); Calcium,Total 8.2 mg/dL (8.5-10.1); Chloride 106 mmol/L (98-107); Creatinine, Serum 0.73 mg/dL (0.55-1.02); EST Glomerular Filtration Rate 89 mL/min (>60); Est Glom Filt Rate - Afr Amer 107 mL/min (>60); Glucose 136 mg/dL (74-106); Potassium 3.6 mmol/L (3.5-5.1); Protein, Total 6.6 g/dL (6.4-8.2); Sodium Level 139 mmol/L (136-145)
== END ==
PROVIDERS: Family Provider Family Medicine; PCP Family Medicine; Referring Provider Internal Medicine Rheumatology; Visit Provider Internal Medicine Rheumatology
DX: M06.4 Inflammatory polyarthropathy (principal); M79.7 Fibromyalgia; M70.61 Trochanteric bursitis, right hip; M18.11 Unilateral primary osteoarthritis of first carpometacarpal joint, right hand; Z79.899 Other long term (current) drug therapy
CPT/HCPCS: 36415; 80053; 85025

== ENCOUNTER → 2019-09-17 07:03 | Outpatient (CLI) | payer OTHER, SELFPAY ==
[2019-09-17 10:19] LABS: Absolute Lymphocyte Count 2.15 X10^3/uL (0.83-4.51); Absolute Neutrophil Count 3.9 X10^3/uL (2.0-7.7); Basophil# 0.08 X10^3/uL; Basophil% 1.2 % (0-1); Eosinophil# 0.16 X10^3/uL; Eosinophils% 2.4 % (0-5); Hematocrit 38.8 % (37-47); Hemoglobin 12.1 g/dL (12.0-15.0); Lymphocyte # 2.15 X10^3/ul (4.0); Lymphocyte % 31.8 % (19-41); Mean Corp Hgb Conc 31.2 g/dL (32-36); Mean Corpuscular Hgb 28.5 pg (27.0-32.0); Mean Corpuscular Volume 91.3 fL (81-99); Monocyte# 0.41 X10^3/uL; Monocyte% 6.1 % (0-10); NRBC Flagged by Analyzer 0 % (0-5); Neutrophil # 3.94 X10^3/uL (2.7-7.7); Neutrophil % 58.2 % (47-70); Platelet Count 320 K/mm3 (150-450); RBC Distribution Width CV 13.6 % (11.6-14.6); RBC Distribution Width SD 46.1 fl (35.1-43.9); Red Blood Count 4.25 M/mm3 (4.2-5.4); White Blood Count 6.8 K/mm3 (4.4-11.0)
[2019-09-17 10:43] LABS: ALB/GLOB Ratio 1.1 RATIO (0.9-2.4); AST(SGOT) 12 U/L (15-37); Alanine Aminotransfer ALT/SGPT 14 U/L (13-56); Albumin, Serum 3.6 g/dL (3.2-5.0); Alkaline Phosphatase 97 U/L (45-117); Anion Gap 7 (5-15); BUN 11 mg/dL (7-18); BUN/Creat Ratio 13.4 RATIO (10-20); Calcium,Total 8.5 mg/dL (8.5-10.1); Chloride 102 mmol/L (98-107); Creatinine, Serum 0.82 mg/dL (0.55-1.02); EST Glomerular Filtration Rate 77 mL/min (>60); Est Glom Filt Rate - Afr Amer 93 mL/min (>60); Globulin 3.3 g/dL (2.2-4.2); Glucose 154 mg/dL (74-106); Potassium 3.9 mmol/L (3.5-5.1); Protein, Total 6.9 g/dL (6.4-8.2); Sodium Level 136 mmol/L (136-145)
== END ==
PROVIDERS: PCP Family Medicine; Referring Provider Internal Medicine Rheumatology; Visit Provider Internal Medicine Rheumatology
DX: M06.4 Inflammatory polyarthropathy (principal); Z79.899 Other long term (current) drug therapy; M79.7 Fibromyalgia; M17.0 Bilateral primary osteoarthritis of knee; M18.11 Unilateral primary osteoarthritis of first carpometacarpal joint, right hand; J45.909 Unspecified asthma, uncomplicated; F32.89 Other specified depressive episodes
CPT/HCPCS: 36415; 80053; 85025

== ENCOUNTER → 2019-09-19 07:40 | Outpatient (CLI) | payer OTHER, SELFPAY ==
--- NOTE | 2019-09-19 07:44 | RAD_ITS ---
STUDY: X-RAY CHEST REASON FOR EXAM: Female, 53 years old. hx arthritis, about to go on new medication TECHNIQUE: Frontal and lateral views of the chest COMPARISON: 20 January 2014 FINDINGS: The lungs are clear and expanded. There is no demonstrated pleural abnormality. Normal size heart. Normal mediastinum and alta. Normal visualized pulmonary arteries. Normal visualized aortic arch and descending thoracic aorta. Normal visualized thoracic spine. Normal visualized ribs, clavicles, and shoulders. There is no demonstrated abnormality of the visualized soft tissue structures of the upper abdomen. RAD/Chest PA and Lateral IMPRESSION: Normal x-ray examination of the chest. Electronically Signed: Marc Brito, at 19:19 EST Tel , Service support ,
== END ==
PROVIDERS: PCP Family Medicine; Referring Provider Internal Medicine Rheumatology; Visit Provider Internal Medicine Rheumatology
DX: M06.09 Rheumatoid arthritis without rheumatoid factor, multiple sites (principal); M79.7 Fibromyalgia; M17.0 Bilateral primary osteoarthritis of knee; M18.11 Unilateral primary osteoarthritis of first carpometacarpal joint, right hand; J45.909 Unspecified asthma, uncomplicated; Z79.899 Other long term (current) drug therapy
CPT/HCPCS: 71046

== ENCOUNTER → 2019-09-22 07:04 | Outpatient (CLI) | payer OTHER, SELFPAY ==
[2019-09-22 10:21] LABS: Hematocrit 40.1 % (37-47); Mean Corp Hgb Conc 32.4 g/dL (32-36); Mean Corpuscular Hgb 29.9 pg (27.0-32.0); Mean Corpuscular Volume 92.2 fL (81-99); Mean Platelet Vol. 11.1 fl (6.2-12.0); Platelet Count 329 K/mm3 (150-450); RBC Distribution Width CV 13.5 % (11.6-14.6); RBC Distribution Width SD 45.5 fl (35.1-43.9); Red Blood Count 4.35 M/mm3 (4.2-5.4); White Blood Count 7.6 K/mm3 (4.4-11.0)
[2019-09-22 10:37] LABS: AST(SGOT) 9 U/L (15-37); Alanine Aminotransfer ALT/SGPT 16 U/L (13-56); Albumin, Serum 3.6 g/dL (3.2-5.0); Alkaline Phosphatase 100 U/L (45-117); Anion Gap 8 (5-15); BUN 17 mg/dL (7-18); BUN/Creat Ratio 22.2 RATIO (10-20); Calcium,Total 8.2 mg/dL (8.5-10.1); Chloride 106 mmol/L (98-107); Cholesterol 139 mg/dL (200); Creatinine, Serum 0.77 mg/dL (0.55-1.02); EST Glomerular Filtration Rate 83 mL/min (>60); Est Glom Filt Rate - Afr Amer 101 mL/min (>60); Globulin 3.6 g/dL (2.2-4.2); Glucose 178 mg/dL (74-106); High Density Lipoprotein 71 mg/dL; Protein, Total 7.2 g/dL (6.4-8.2); Sodium Level 137 mmol/L (136-145); Triglycerides 108 mg/dL; Very Low Density Lipoprotein 22 mg/dL (5-40)
[2019-09-22 10:43] LABS: Hemoglobin A1c 7.3 % (4.2-6.3)
[2019-09-25 05:06] LABS: QNTFERON TB Mitogen Value > 10.00 IU/mL (.); QNTFERON TB Nil Value 0.01 IU/mL (.); QNTFERON TB1+ Ag Value 0.01 IU/mL (.); QNTFERON TB2+ Ag Value 0.01 IU/mL (.)
[2019-09-25 07:55] LABS: QNTIFERON TB Positive Criteria Negative (Negative)
== END ==
PROVIDERS: Internal Medicine Rheumatology; PCP Family Medicine; Referring Provider Family Medicine; Visit Provider Family Medicine
DX: E11.9 Type 2 diabetes 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s (principal); M06.09 Rheumatoid arthritis without rheumatoid factor, multiple sites; M79.7 Fibromyalgia; M17.0 Bilateral primary osteoarthritis of knee; M18.11 Unilateral primary osteoarthritis of first carpometacarpal joint, right hand; J45.909 Unspecified asthma, uncomplicated; Z79.899 Other long term (current) drug therapy
CPT/HCPCS: 36415; 80053; 80061; 83036; 85027; 86480

== ENCOUNTER → 2019-12-11 07:08 | Outpatient (CLI) | payer OTHER, SELFPAY ==
[2019-12-11 09:50] LABS: Absolute Lymphocyte Count 2.76 X10^3/uL (0.83-4.51); Absolute Neutrophil Count 3.4 X10^3/uL (2.0-7.7); Basophil# 0.11 X10^3/uL; Basophil% 1.5 % (0-1); Eosinophil# 0.19 X10^3/uL; Eosinophils% 2.6 % (0-5); Hematocrit 36.7 % (37-47); Hemoglobin 11.7 g/dL (12.0-15.0); Lymphocyte # 2.76 X10^3/ul (4.0); Lymphocyte % 38.1 % (19-41); Mean Corp Hgb Conc 31.9 g/dL (32-36); Mean Corpuscular Hgb 29.8 pg (27.0-32.0); Mean Corpuscular Volume 93.4 fL (81-99); Mean Platelet Vol. 10.3 fl (6.2-12.0); NRBC Flagged by Analyzer 0 % (0-5); Neutrophil # 3.36 X10^3/uL (2.7-7.7); Neutrophil % 46.5 % (47-70); Platelet Count 264 K/mm3 (150-450); RBC Distribution Width CV 12.9 % (11.6-14.6); RBC Distribution Width SD 44.5 fl (35.1-43.9); Red Blood Count 3.93 M/mm3 (4.2-5.4); White Blood Count 7.2 K/mm3 (4.4-11.0)
[2019-12-11 10:05] LABS: AST(SGOT) 9 U/L (15-37); Alanine Aminotransfer ALT/SGPT 16 U/L (13-56); Albumin, Serum 3.3 g/dL (3.2-5.0); Alkaline Phosphatase 81 U/L (45-117); Anion Gap 8 (5-15); BUN 14 mg/dL (7-18); BUN/Creat Ratio 18.3 RATIO (10-20); Calcium,Total 8.2 mg/dL (8.5-10.1); Chloride 104 mmol/L (98-107); Creatinine, Serum 0.76 mg/dL (0.55-1.02); EST Glomerular Filtration Rate 84 mL/min (>60); Est Glom Filt Rate - Afr Amer 101 mL/min (>60); Globulin 3.3 g/dL (2.2-4.2); Glucose 153 mg/dL (74-106); Protein, Total 6.6 g/dL (6.4-8.2); Sodium Level 136 mmol/L (136-145)
== END ==
PROVIDERS: PCP Family Medicine; Referring Provider Internal Medicine Rheumatology; Visit Provider Internal Medicine Rheumatology
DX: M06.09 Rheumatoid arthritis without rheumatoid factor, multiple sites (principal); M79.7 Fibromyalgia; M17.0 Bilateral primary osteoarthritis of knee; M18.11 Unilateral primary osteoarthritis of first carpometacarpal joint, right hand; J45.909 Unspecified asthma, uncomplicated; Z79.899 Other long term (current) drug therapy
CPT/HCPCS: 36415; 80053; 85025

== ENCOUNTER → 2020-03-08 07:04 | Outpatient (CLI) | payer OTHER, SELFPAY ==
[2020-03-08 09:53] LABS: Absolute Lymphocyte Count 3.13 X10^3/uL (0.83-4.51); Absolute Neutrophil Count 3.4 X10^3/uL (2.0-7.7); Basophil% 1.3 % (0-1); Eosinophil# 0.21 X10^3/uL; Eosinophils% 2.8 % (0-5); Hematocrit 36.1 % (37-47); Hemoglobin 11.4 g/dL (12.0-15.0); Lymphocyte # 3.13 X10^3/ul (4.0); Lymphocyte % 41.1 % (19-41); Mean Corp Hgb Conc 31.6 g/dL (32-36); Mean Corpuscular Hgb 29.7 pg (27.0-32.0); Mean Platelet Vol. 11.2 fl (6.2-12.0); Monocyte# 0.73 X10^3/uL; Monocyte% 9.6 % (0-10); NRBC Flagged by Analyzer 0 % (0-5); Neutrophil # 3.42 X10^3/uL (2.7-7.7); Neutrophil % 44.8 % (47-70); Platelet Count 269 K/mm3 (150-450); RBC Distribution Width CV 13.6 % (11.6-14.6); RBC Distribution Width SD 46.7 fl (35.1-43.9); Red Blood Count 3.84 M/mm3 (4.2-5.4); White Blood Count 7.6 K/mm3 (4.4-11.0)
[2020-03-08 10:12] LABS: ALB/GLOB Ratio 1.1 RATIO (0.9-2.4); AST(SGOT) 13 U/L (15-37); Alanine Aminotransfer ALT/SGPT 16 U/L (13-56); Albumin, Serum 3.6 g/dL (3.2-5.0); Alkaline Phosphatase 75 U/L (45-117); Anion Gap 7 (5-15); BUN 14 mg/dL (7-18); Calcium,Total 8.3 mg/dL (8.5-10.1); Chloride 106 mmol/L (98-107); Creatinine, Serum 0.88 mg/dL (0.55-1.02); EST Glomerular Filtration Rate 71 mL/min (>60); Est Glom Filt Rate - Afr Amer 86 mL/min (>60); Globulin 3.2 g/dL (2.2-4.2); Glucose 180 mg/dL (74-106); Potassium 4.2 mmol/L (3.5-5.1); Protein, Total 6.8 g/dL (6.4-8.2); Sodium Level 137 mmol/L (136-145)
== END ==
PROVIDERS: PCP Family Medicine; Referring Provider Internal Medicine Rheumatology; Visit Provider Internal Medicine Rheumatology
DX: M06.09 Rheumatoid arthritis without rheumatoid factor, multiple sites (principal); M79.7 Fibromyalgia; M17.0 Bilateral primary osteoarthritis of knee; M18.11 Unilateral primary osteoarthritis of first carpometacarpal joint, right hand; J45.909 Unspecified asthma, uncomplicated; Z79.899 Other long term (current) drug therapy
CPT/HCPCS: 36415; 80053; 85025

== ENCOUNTER → 2020-05-31 07:07 | Outpatient (CLI) | payer OTHER, SELFPAY ==
[2020-05-31 10:01] LABS: Absolute Lymphocyte Count 2.61 X10^3/uL (0.83-4.51); Absolute Neutrophil Count 2.9 X10^3/uL (2.0-7.7); Basophil% 1.6 % (0-1); Eosinophil# 0.18 X10^3/uL; Eosinophils% 2.8 % (0-5); Hematocrit 39.1 % (37-47); Hemoglobin 12.4 g/dL (12.0-15.0); Lymphocyte # 2.61 X10^3/ul (4.0); Lymphocyte % 40.9 % (19-41); Mean Corp Hgb Conc 31.7 g/dL (32-36); Mean Corpuscular Hgb 29.2 pg (27.0-32.0); Mean Platelet Vol. 11.4 fl (6.2-12.0); Monocyte# 0.56 X10^3/uL; Monocyte% 8.8 % (0-10); NRBC Flagged by Analyzer 0 % (0-5); Neutrophil # 2.92 X10^3/uL (2.7-7.7); Neutrophil % 45.7 % (47-70); Platelet Count 301 K/mm3 (150-450); RBC Distribution Width CV 12.5 % (11.6-14.6); Red Blood Count 4.25 M/mm3 (4.2-5.4); White Blood Count 6.4 K/mm3 (4.4-11.0)
[2020-05-31 10:54] LABS: AST(SGOT) 13 U/L (15-37); Alanine Aminotransfer ALT/SGPT 17 U/L (13-56); Albumin, Serum 3.5 g/dL (3.2-5.0); Alkaline Phosphatase 86 U/L (45-117); Anion Gap 11 (5-15); BUN 9 mg/dL (7-18); Calcium,Total 8.6 mg/dL (8.5-10.1); Chloride 106 mmol/L (98-107); EST Glomerular Filtration Rate 69 mL/min (>60); Est Glom Filt Rate - Afr Amer 84 mL/min (>60); Globulin 3.5 g/dL (2.2-4.2); Glucose 176 mg/dL (74-106); Potassium 3.7 mmol/L (3.5-5.1); Sodium Level 138 mmol/L (136-145)
== END ==
PROVIDERS: PCP Family Medicine; Referring Provider Internal Medicine Rheumatology; Visit Provider Internal Medicine Rheumatology
DX: M06.09 Rheumatoid arthritis without rheumatoid factor, multiple sites (principal); M79.7 Fibromyalgia; M17.0 Bilateral primary osteoarthritis of knee; M18.11 Unilateral primary osteoarthritis of first carpometacarpal joint, right hand; J45.909 Unspecified asthma, uncomplicated; Z79.899 Other long term (current) drug therapy
CPT/HCPCS: 36415; 80053; 85025

== ENCOUNTER 2020-06-18 05:45 | Day surgery (SDC) | payer OTHER, SELFPAY ==
--- NOTE | 2020-06-06 18:19 | PCM.HP.BLA ---
History and Physical History and Physical Patient Name: Tatiana Morgan-Koprivec : 1965 From: HERBER LEWIS NP DATE OF SURGERY: 06/18/2020 SCHEDULED PROCEDURE: Left knee arthroscopy with medial meniscectomy and chondroplasty HISTORY OF PRESENT ILLNESS: Preoperative history and physical exam was performed on June 04, 2020. This is a 54-year-old female who has been having ongoing left knee pain for over a year. The patient states she did fall on the left knee in April 2019. The patient describes the pain as constant and sharp. The pain is 7 on a scale of 10 on average and 8 on a scale of 10 at worst. Associated symptoms include swelling. The pain is made worse with stairs and walking. The patient does experience start up pain. The patient has a medical history pertinent for rheumatoid arthritis, type 2 diabetes mellitus and fibromyalgia. Dr. Lentz manages her RA. After failing conservative measures and discussing treatment options with Dr. Fernando Stewart the patient does wish to proceed with a left knee arthroscopy with medial meniscectomy and chondroplasty. REVIEW OF SYSTEMS: ROS: Const: Denies change in appetite, fever and weight change. CV: Denies chest pain, heart murmur and irregular heartbeat. Resp: Reports wheezing, but denies cough, pneumonia, shortness of breath and tuberculosis. GI: Denies constipation, diarrhea, heartburn, nausea, rectal itching, bloody stools and vomiting. : Denies incontinence. Musculo: Denies leg swelling, pain, trouble walking and weakness. Skin: Reports tattoo, but denies Raynaud's and history of shingles. Neuro: Denies ambulatory dysfunction, dizziness, numbness/tingling and tremor. Psych: Denies anxiety, insomnia and stress. Robert/Lymph: Denies anemia, bleeding/bruising tendency and past transfusion. Reviewed, no changes. PAST MEDICAL HISTORY: Advance Care Plan: Other Directive, LIVING WILL Effective Date: 01/09/2019 Other Directive, POA Effective Date: 01/09/2019 PMH: Medical Problems: Arthritis Diabetes - TYPE 2 Fibromyalgia Accidents: Fracture - LT ELBOW Surgical Hx: Tonsillectomy - (1968) [place] LT Ankle - (2004) Dr. Orr @ [place] RT Foot - (2006) Dr. Ramirez @ [place] Deviated Septum - (2009) Ear, Nose, Throat - [place] [facility] Knee Arthroscopy - (02/17/2019) MARIA [email or web address] Anesthesia Complications: None Assistive Devices: Glasses, Contacts Reviewed and updated. SOCIAL HISTORY: SH: Marital: .Occupation: [employer].Work Status: Currently Working.Hand Dominance: Right-handed. Personal Habits: Cigarette Use: Never Smoked Cigarettes.Smokeless Tobacco: Never Used Smokeless Tobacco.E-Cigarette Use: Never used.Alcohol: Occasionally.Drug Use: Denies Use.Enjoy Exercising: Daily. Reviewed, no changes. VITALS: Ht: 63 Wt: 315lb Wt k.884 BMI: 55.8 BP: 163/82 Pulse: 76 Resp: 16 T: 97.6 T: 36.4C Pain Level: 8 ALLERGIES: Keflex Levaquin Sulfa Latex - hives MEDICATIONS: Plaquenil 200 mg 2 tabs 2x daily, Ultram 50 mg 1-2 by mouth BID, Folic Acid 1 mg 2 by mouth every day, Prednisone 10 mg 1 tab daily, prn, Methotrexate 2.5 mg 8 tabs once a week, Cymbalta 60 mg 1 tab daily, Metformin HCL 500 mg 1 by mouth every day, Atorvastatin Calcium 10 mg 1 by mouth every day, Enbrel 25 mg/0.5ml 1 injection once a week PRE-OP EXAM: General appearance:NORMAL Other: Eyes: Conjunctivae and lids: NORMAL Pupils: ERR Ears, Nose, Mouth, and Throat: NORMAL Other: Inspection of lips, teeth and gums: NORMAL Other: Respiratory: Assessment of respiratory effort: NORMAL Other: Auscultation of lungs: clear to auscultation no wheezes, rhonchi or rales. Cardiovascular: Auscultation of heart: regular rate and rhythm, no murmurs, gallops or rubs. Gastrointestinal: Exam of abdomen: soft, nontender, nondistended bowel sounds present. Neurological: see below Psychiatric: Orientation to time, place and person: NORMAL Other: Mood and affect: NORMAL Other: PHYSICAL EXAMINATION: Left knee with trace effusion. Medial and lateral joint line pain with palpation. Range of motion 0 extension to 95 of flexion. Pain with flexion. Positive medial and lateral Valentine's testing. Sensation intact to saphenous, sural, deep and fresh peroneal and tibial nerve distributions. IMAGING STUDIES: 3 views of left knee obtained on May 18, 2020 including AP, lateral and skyline views reveal minimal medial and lateral osteoarthritis and moderate lateral patellofemoral osteoarthritis. MRI of the left knee obtained on May 25, 2020 reveals patellofemoral and medial compartment arthrosis with high-grade patellofemoral chondromalacia and subchondral stress of the superior apex an intermediate grade medial compartment chondromalacia with subchondral stress of the medial femoral condyle. There is a chronic cleavage tear of the medial meniscus. IMPRESSION: 1. Osteoarthritis, left knee 2. Medial meniscus tear, left knee 3. Type 2 diabetes mellitus 4. Fibromyalgia 5. Rheumatoid arthritis 6. Morbid obesity PLAN: Dr. Fernando Stewart did discuss and review with the patient all treatment options including surgical versus nonsurgical. The patient does wish to proceed with the above-stated procedure. Potential risk, benefits and complications of the procedure were discussed in detail including but not limited to , infection, nerve and blood vessel damage, persistent pain, numbness, tingling, paresthesia, blood clot, pulmonary embolism and requirement for possible further surgery. The patient expressed full understanding and has no further questions for the doctor. The patient does agree to proceed with the above-stated procedure and has signed the surgery consent form. The patient was given a prescription for Ultram at her preoperative visit. She was instructed to bring crutches or a walker with her to the hospital the day of her surgery. Discussed with the patient the risks associated with the COVID-19 virus including the risk of exposure while at the hospital. The patient was reassured local hospitals have low infection rates and taken all necessary precautions to limit patient exposure to COVID-19. Limiting the patient's time in the hospital may decrease their exposure to COVID-19. The patient was notified that we will need to comply with any screening or testing the hospital wishes to perform and that surgery may be delayed for any positive test results. This dictation was created using voice recognition software. Phonetic and/or grammatical errors may exist. ___ I have re-examined the patient. There are no clinical changes since date of exam. ___ See progress notes for changes. ___ Dictated on admission Date: Time: Signature:
--- NOTE | 2020-06-07 09:57 | EKG12_ITS ---
Test Reason : PRE OP Blood Pressure : / mmHG Vent. Rate : 072 BPM Atrial Rate : 072 BPM P-R Int : 138 ms QRS Dur : 072 ms QT Int : 390 ms P-R-T Axes : 014 -08 045 degrees QTc Int : 427 ms Normal sinus rhythm Normal ECG Confirmed by CESAR SANCHEZ, OMAR ([id number]), scientific editor MELA RAMOS ([id number]) on 06/08/2020 10:59:45 AM Referred By: Fernando Stewart Confirmed By:OMAR GUERRERO MD
[2020-06-17 09:05] LABS: Absolute Lymphocyte Count 2.49 X10^3/uL (0.83-4.51); Absolute Neutrophil Count 2.6 X10^3/uL (2.0-7.7); Basophil# 0.08 X10^3/uL; Basophil% 1.4 % (0-1); Eosinophil# 0.22 X10^3/uL; Eosinophils% 3.7 % (0-5); Hematocrit 39.4 % (37-47); Hemoglobin 12.2 g/dL (12.0-15.0); Lymphocyte # 2.49 X10^3/ul (4.0); Lymphocyte % 42.1 % (19-41); Mean Corpuscular Hgb 28.7 pg (27.0-32.0); Mean Corpuscular Volume 92.7 fL (81-99); Mean Platelet Vol. 10.7 fl (6.2-12.0); Monocyte# 0.52 X10^3/uL; Monocyte% 8.8 % (0-10); NRBC Flagged by Analyzer 0 % (0-5); Neutrophil # 2.59 X10^3/uL (2.7-7.7); Neutrophil % 43.7 % (47-70); Platelet Count 253 K/mm3 (150-450); RBC Distribution Width CV 12.6 % (11.6-14.6); RBC Distribution Width SD 43.1 fl (35.1-43.9); Red Blood Count 4.25 M/mm3 (4.2-5.4); White Blood Count 5.9 K/mm3 (4.4-11.0)
[2020-06-17 09:26] LABS: Anion Gap 4 (5-15); BUN 8 mg/dL (7-18); BUN/Creat Ratio 9.9 RATIO (10-20); Calcium,Total 8.4 mg/dL (8.5-10.1); Chloride 110 mmol/L (98-107); Creatinine, Serum 0.81 mg/dL (0.55-1.02); EST Glomerular Filtration Rate 78 mL/min (>60); Est Glom Filt Rate - Afr Amer 94 mL/min (>60); Glucose 168 mg/dL (74-106); Sodium Level 139 mmol/L (136-145)
[2020-06-17 09:34] LABS: Hemoglobin A1c 7.4 % (3.8-5.6)
[2020-06-18] VITALS (7 sets, daily range): BP systolic 101–150; BP diastolic 64–90; PULSE 70–118; RESP 16–18; TEMP 36.4–37.1; O2SAT 98–100; BMI 55.4
[2020-06-18 05:59] LABS: Internal QC Validated? YES +Cl - CLEAR BKGD; Pregnancy, Urine Negative Negative
[2020-06-18] MEDS: Lactated Ringers 1,000 ML 100 ML IV (06:47)
[2020-06-18 07:00] LABS: Bedside Glucose 189 mg/dL (70-110)
[2020-06-18] MEDS: Epinephrine (1 mg/ml) 1 MG/ML VIAL (07:58)
[2020-06-18] MEDS: Bupiv/Epi 0.5% Mpf 30 ML Vial (07:58)
--- NOTE | 2020-06-18 08:21 | PCM.OPRPT ---
Report of Operation Date of Procedure: 06/18/20 Pre-Operative Diagnosis: Internal derangement left knee Post-Operative Diagnosis: MMT, LMT, OA Surgery/Procedure Performed:: D & O arthroscopy Type of Anesthesia:: General Anesthesiologist: Sandeep Velez - Admcarlos VTE Documentation VTE Present on Admission: No VTE Mechan Device Prophylaxis: SCD's VTE Pharm Prophylaxis ordered?: No Reason prophylaxis not ordered:: Treatment Not Indicated
[2020-06-18 09:30] LABS: Bedside Glucose 198 mg/dL (70-110)
[2020-06-18] MEDS: HYDROcodone Bitartrate/Apap 5/325 Tablet PO (10:23)
== END 2020-06-18 10:50 | disposition home or self-care (01) ==
LOC: SDC 05:45 → AC 05:45
PROVIDERS: Anesthesiology; PCP Family Medicine; Referring Provider Orthopaedic Surgery; Visit Provider Orthopaedic Surgery
PROC: (CPT 29870; principal; 2020-06-18 07:10)
DX: S83.242A Other tear of medial meniscus, current injury, left knee, initial encounter (principal); M17.12 Unilateral primary osteoarthritis, left knee; Z20.828 Contact with and (suspected) exposure to other viral communicable diseases; E11.9 Type 2 diabetes 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s; E66.01 Morbid (severe) obesity due to excess calories; M06.9 Rheumatoid arthritis, unspecified; M79.7 Fibromyalgia; Z79.899 Other long term (current) drug therapy; Z79.84 Long term (current) use of oral hypoglycemic drugs; Z79.52 Long term (current) use of systemic steroids; W19.XXXA Unspecified fall, initial encounter
CPT/HCPCS: 01400; 29880; 36415; 80048; 81025; 82962; 83036; 85025; 87426; 93005; C9803; J7120; J2405

== ENCOUNTER → 2020-06-28 11:24 | Outpatient (CLI) | payer OTHER, SELFPAY ==
[2020-06-18 06:21] VITALS: BMI 55.4
--- NOTE | 2020-06-28 11:41 | VDLE_ITS ---
Reason For Study: BLE PAIN RIGHT LEFT GSV is normal. GSV is normal. CFV is compressible, spontaneous, phasic, CFV is compressible, spontaneous, phasic, competent and demonstrates normal competent, and demonstrates normal augmentation. augmentation. FV is compressible, spontaneous, phasic, FV is compressible, spontaneous, phasic, competent and demonstrates normal competent and demonstrates normal augmentation. augmentation. POP V is compressible, spontaneous, phasic, POP V is compressible, spontaneous, phasic, competent and demonstrates normal competent and demonstrates normal augmentation. augmentation. T/P Trunk is compressible. T/P Trunk is compressible. PTV is compressible. PTV is compressible. RT PerV is compressible. LT PerV is compressible. Procedure This is a venous duplex using B-mode, color flow and spectral Doppler. Exam performed in department. The study was technically difficult. Due to obesity. A preliminary report was called and/or faxed to Dr. Stewart @ [phone] @ 12:15 pm. Interpretation Summary Deep veins of the lower extremities are bilaterally patent and compressible segmentally. There is no evidence of deep vein thrombosis on either side. Valvular competence appears intact within the proximal deep venous systems bilaterally. The great saphenous veins appear bilaterally patent and compressible segmentally. Ordering Physician: Fernando Stewart Referring Physician: Fernando Brooks Performed By: Yenifer Burns, RDCS, RVT
== END ==
PROVIDERS: PCP Family Medicine; Referring Provider Orthopaedic Surgery; Visit Provider Orthopaedic Surgery
DX: M79.605 Pain in left leg (principal); M79.604 Pain in right leg
CPT/HCPCS: 93970

== ENCOUNTER → 2020-08-26 07:01 | Outpatient (CLI) | payer OTHER, SELFPAY ==
[2020-06-18 06:21] VITALS: BMI 55.4
[2020-08-26 10:16] LABS: Absolute Lymphocyte Count 2.46 X10^3/uL (0.83-4.51); Basophil# 0.08 X10^3/uL; Basophil% 1.3 % (0-1); Eosinophil# 0.16 X10^3/uL; Eosinophils% 2.5 % (0-5); Hematocrit 37.5 % (37-47); Hemoglobin 11.9 g/dL (12.0-15.0); Lymphocyte # 2.46 X10^3/ul (4.0); Lymphocyte % 39.1 % (19-41); Mean Corp Hgb Conc 31.7 g/dL (32-36); Mean Corpuscular Hgb 29.5 pg (27.0-32.0); Mean Corpuscular Volume 92.8 fL (81-99); Mean Platelet Vol. 11.6 fl (6.2-12.0); Monocyte# 0.57 X10^3/uL; Monocyte% 9.1 % (0-10); NRBC Flagged by Analyzer 0 % (0-5); Neutrophil # 3.01 X10^3/uL (2.7-7.7); Neutrophil % 47.8 % (47-70); Platelet Count 273 K/mm3 (150-450); RBC Distribution Width SD 44.6 fl (35.1-43.9); Red Blood Count 4.04 M/mm3 (4.2-5.4); White Blood Count 6.3 K/mm3 (4.4-11.0)
[2020-08-26 10:49] LABS: AST(SGOT) 9 U/L (15-37); Alanine Aminotransfer ALT/SGPT 15 U/L (13-56); Albumin, Serum 3.3 g/dL (3.2-5.0); Alkaline Phosphatase 77 U/L (45-117); Anion Gap 7 (5-15); BUN 15 mg/dL (7-18); BUN/Creat Ratio 19.8 RATIO (10-20); Calcium,Total 7.7 mg/dL (8.5-10.1); Chloride 107 mmol/L (98-107); Creatinine, Serum 0.76 mg/dL (0.55-1.02); EST Glomerular Filtration Rate 84 mL/min (>60); Est Glom Filt Rate - Afr Amer 102 mL/min (>60); Globulin 3.2 g/dL (2.2-4.2); Glucose 154 mg/dL (74-106); Potassium 4.1 mmol/L (3.5-5.1); Protein, Total 6.5 g/dL (6.4-8.2); Sodium Level 138 mmol/L (136-145)
== END ==
LOC: MTLAB 07:04
PROVIDERS: PCP Family Medicine; Referring Provider Internal Medicine Rheumatology; Visit Provider Internal Medicine Rheumatology
DX: M06.09 Rheumatoid arthritis without rheumatoid factor, multiple sites (principal); M79.7 Fibromyalgia; M17.0 Bilateral primary osteoarthritis of knee; M18.11 Unilateral primary osteoarthritis of first carpometacarpal joint, right hand; J45.909 Unspecified asthma, uncomplicated; Z79.899 Other long term (current) drug therapy
CPT/HCPCS: 36415; 80053; 85025

== ENCOUNTER → 2020-11-22 12:38 | Outpatient (CLI) | payer OTHER, SELFPAY ==
[2020-06-18 06:21] VITALS: BMI 55.4
[2020-11-22 15:17] LABS: Absolute Lymphocyte Count 2.09 X10^3/uL (0.83-4.51); Absolute Neutrophil Count 4.6 X10^3/uL (2.0-7.7); Basophil# 0.09 X10^3/uL; Basophil% 1.2 % (0-1); Eosinophil# 0.21 X10^3/uL; Eosinophils% 2.8 % (0-5); Hematocrit 40.5 % (37-47); Hemoglobin 12.5 g/dL (12.0-15.0); Lymphocyte # 2.09 X10^3/ul (0.83-4.51); Lymphocyte % 27.4 % (19-41); Mean Corp Hgb Conc 30.9 g/dL (32-36); Mean Corpuscular Hgb 28.5 pg (27.0-32.0); Mean Corpuscular Volume 92.5 fL (81-99); Mean Platelet Vol. 11.1 fl (6.2-12.0); Monocyte# 0.56 X10^3/uL; Monocyte% 7.3 % (0-10); NRBC Flagged by Analyzer 0 % (0-5); Neutrophil # 4.64 X10^3/uL (2.7-7.7); Neutrophil % 60.9 % (47-70); Platelet Count 277 K/mm3 (150-450); RBC Distribution Width CV 12.8 % (11.6-14.6); RBC Distribution Width SD 43.9 fl (35.1-43.9); Red Blood Count 4.38 M/mm3 (4.2-5.4); White Blood Count 7.6 K/mm3 (4.4-11.0)
[2020-11-22 15:32] LABS: ALB/GLOB Ratio 0.9 RATIO (0.9-2.4); AST(SGOT) 20 U/L (15-37); Alanine Aminotransfer ALT/SGPT 19 U/L (13-56); Albumin, Serum 3.5 g/dL (3.2-5.0); Alkaline Phosphatase 97 U/L (45-117); Anion Gap 8 (5-15); BUN 15 mg/dL (7-18); BUN/Creat Ratio 15.5 RATIO (10-20); Calcium,Total 8.5 mg/dL (8.5-10.1); Chloride 103 mmol/L (98-107); Creatinine, Serum 0.96 mg/dL (0.55-1.02); EST Glomerular Filtration Rate 64 mL/min (>60); Est Glom Filt Rate - Afr Amer 77 mL/min (>60); Globulin 3.7 g/dL (2.2-4.2); Glucose 278 mg/dL (74-106); Potassium 4.1 mmol/L (3.5-5.1); Protein, Total 7.2 g/dL (6.4-8.2); Sodium Level 137 mmol/L (136-145)
== END ==
PROVIDERS: PCP Family Medicine; Referring Provider Internal Medicine Rheumatology; Visit Provider Internal Medicine Rheumatology
DX: M06.09 Rheumatoid arthritis without rheumatoid factor, multiple sites (principal); M79.7 Fibromyalgia; M17.0 Bilateral primary osteoarthritis of knee; M18.11 Unilateral primary osteoarthritis of first carpometacarpal joint, right hand; J45.909 Unspecified asthma, uncomplicated; Z79.899 Other long term (current) drug therapy
CPT/HCPCS: 36415; 80053; 85025

== ENCOUNTER → 2021-02-22 07:07 | Outpatient (CLI) | payer OTHER, SELFPAY ==
[2020-06-18 06:21] VITALS: BMI 55.4
[2021-02-22 10:29] LABS: Absolute Lymphocyte Count 3.69 X10^3/uL (0.83-4.51); Basophil# 0.07 X10^3/uL; Basophil% 0.7 % (0-1); Eosinophil# 0.21 X10^3/uL; Eosinophils% 2.2 % (0-5); Hematocrit 37.4 % (37-47); Hemoglobin 11.8 g/dL (12.0-15.0); Lymphocyte # 3.69 X10^3/ul (0.83-4.51); Lymphocyte % 38.4 % (19-41); Mean Corp Hgb Conc 31.6 g/dL (32-36); Mean Corpuscular Hgb 29.2 pg (27.0-32.0); Mean Corpuscular Volume 92.6 fL (81-99); Monocyte# 0.66 X10^3/uL; Monocyte% 6.9 % (0-10); NRBC Flagged by Analyzer 0 % (0-5); Neutrophil # 4.95 X10^3/uL (2.7-7.7); Neutrophil % 51.4 % (47-70); Platelet Count 252 K/mm3 (150-450); RBC Distribution Width SD 43.8 fl (35.1-43.9); Red Blood Count 4.04 M/mm3 (4.2-5.4); White Blood Count 9.6 K/mm3 (4.4-11.0)
[2021-02-22 10:44] LABS: AST(SGOT) 13 U/L (15-37); Alanine Aminotransfer ALT/SGPT 18 U/L (13-56); Albumin, Serum 3.4 g/dL (3.2-5.0); Alkaline Phosphatase 76 U/L (45-117); Anion Gap 5 (5-15); BUN 9 mg/dL (7-18); BUN/Creat Ratio 12.4 RATIO (10-20); Chloride 107 mmol/L (98-107); Creatinine, Serum 0.72 mg/dL (0.55-1.02); EST Glomerular Filtration Rate 89 mL/min (>60); Est Glom Filt Rate - Afr Amer 107 mL/min (>60); Globulin 3.4 g/dL (2.2-4.2); Glucose 182 mg/dL (74-106); Potassium 3.9 mmol/L (3.5-5.1); Protein, Total 6.8 g/dL (6.4-8.2); Sodium Level 137 mmol/L (136-145)
== END ==
PROVIDERS: PCP Family Medicine; Referring Provider Internal Medicine Rheumatology; Visit Provider Internal Medicine Rheumatology
DX: M06.09 Rheumatoid arthritis without rheumatoid factor, multiple sites (principal); M79.7 Fibromyalgia; M17.0 Bilateral primary osteoarthritis of knee; M18.11 Unilateral primary osteoarthritis of first carpometacarpal joint, right hand; J45.909 Unspecified asthma, uncomplicated; Z79.899 Other long term (current) drug therapy
CPT/HCPCS: 36415; 80053; 85025

== ENCOUNTER 2021-04-28 07:50 | Emergency (ER) | payer OTHER, SELFPAY ==
[2021-04-28 07:51] VITALS: BP 171/91; PULSE 104; RESP 16; TEMP 36.3; O2SAT 95; BMI 54.1
[2021-04-28 08:24] VITALS: O2SAT 97
--- NOTE | 2021-04-28 08:38 | EX.ED.DYSGE1 ---
HPI History of Present Illness Chief Complaint: Cough Narrative Narrative: Dry heaving that started 1 week ago, followed by diarrhea, nonproductive cough, fevers. When she started with just the dry heaving and that was the only symptom she had, she had a rapid Covid test that was negative. She has been vaccinated fully. She has been around people lately so she wanted to be careful. She was not around anyone with Covid that she knows of. Since the last week, she has had a 19 pound unintentional weight loss, she is able to drink water but not able to eat anything due to the symptoms hence presenting to the emergency department. [facility] Medical History (Updated 04/28/21 @ 11:[address] Barrera Luna MD) Arthritis Fibromyalgia Home Medications hydroxychloroquine 200 mg PO DAILYCM 01/20/14 [History Last Taken Unknown] prednisone 10 mg PO DAILY PRN 01/20/14 [History Last Taken Unknown] tramadol 50 mg PO Q4H PRN PRN 01/20/14 [History Last Taken Unknown] trazodone 150 mg PO QHS 01/20/14 [History Last Taken Unknown] duloxetine 30 mg PO DAILY 02/11/19 [History Last Taken Unknown] folic acid 0.8 mg PO BID 02/11/19 [History Last Taken Unknown] methotrexate sodium 20 mg PO MO 02/11/19 [History Last Taken 06/07/20] atorvastatin 40 mg PO QHS 06/09/20 [History Last Taken Unknown] epinephrine 0.3 mg IM X1 PRN 06/09/20 [History Last Taken Unknown] estradiol 0.5 mg PO DAILY 06/09/20 [History Last Taken Unknown] etanercept 50 mg SQ WE 06/09/20 [History Last Taken 06/02/20] medroxyprogesterone 10 mg PO DAILY 06/09/20 [History Last Taken Unknown] metformin 500 mg PO DAILY 06/09/20 [History Last Taken Unknown] ondansetron 8 mg PO Q8H PRN PRN #20 tab 04/28/21 [Rx Last Taken Unknown] Allergy/AdvReac Type Severity Reaction Status Date / Time adhesive Allergy Hives Verified 04/28/21 07:54 cephalexin monohydrate Allergy Hives Verified 04/28/21 07:54 [From Keflex] latex Allergy Hives Verified 04/28/21 07:54 levofloxacin [From Levaquin] Allergy Hives Verified 04/28/21 07:54 Sulfa (Sulfonamide Allergy Hives Verified 04/28/21 07:54 Antibiotics) Social History (Updated 11/01/18 @ 06:39 by Silvio FARMER, PA) Smoking Status: Never smoker alcohol intake: never ROS ROS ED Constitutional Constitutional ED: Denies chills or fever(s) Eyes Eyes: Denies change in vision or diplopia ENT ENT ED: Denies rhinorrhea or sore throat Cardiovascular Cardiovascular: Denies chest pain or palpitations Respiratory/Chest Respiratory/Chest: Denies cough or dyspnea Gastrointestinal Gastrointestinal: Denies abdominal pain, constipation, fecal incontinence, nausea or vomiting Genitourinary Genitourinary ED: Reports other Details: no urinary retention ; Denies abdominal discomfort or urinary incontinence Musculoskeletal Musculoskeletal: Reports as per HPI and back pain; Denies neck pain Integumentary Denies rash or wounds Neurologic Neurologic: Denies headache(s), paresthesias or weakness Psychiatric Psychiatric: Denies anxiety or suicidal thoughts EXAM Physical Exam Const Vital Signs: 04/28/21 07:51 04/28/21 08:24 04/28/21 10:31 Temperature 97.3 F L 98.3 F Temperature Source Temporal Oral Pulse Rate 104 H 79 Respiratory Rate 16 16 Respiratory Effort Normal Non-Labored Respiratory Depth Normal Respiratory Pattern Normal Blood Pressure 171/91 H 139/84 H Blood Pressure Mean 117 102 Pulse Ox 95 97 Oxygen Delivery Method Room Air Room Air Positive well nourished, well developed and obese General Appearance ED: well developed and NAD Nutritional Appearance: obese HEENT Reports moist mucous membranes Negative for trauma or tenderness Eyes PERRL and EOMs intact bilaterally Neck full ROM and supple Resp normal respiratory effort and clear to auscultation bilaterally Cardio regular rate, regular rhythm and no murmurs GI normal to inspection, nondistended, normoactive bowel sounds, soft to palpation and non-tender Auscultation: normoactive bowel sounds Palpation: soft Back/Spine no CVA tenderness and normal to inspection General Back: other FROM Lumbar Spine / Lower Back: ROM limited Extremity normal to inspection, full ROM and no pedal edema General Extremety ED: Negative for edema, pulses abnormal or tenderness General Extremity: Negative for edema or pulses abnormal Neuro oriented x3 and no sensory deficits noted Sensorium / Orientation: alert Motor Exam: strength 5/5 throughout Psych mental status grossly normal and thought process normal Skin no rashes or lesions noted and no wounds MDM MDM MDM Narrative Medical decision making narrative: Patient's hyperglycemia was treated with IV fluids and insulin, also treat her with Zofran she is feeling better. Her chest x-ray showed infiltrate, awaiting PCR results on Covid, which ended up returning positive. Her oxygen levels are excellent and she is breathing well and in no respiratory distress able to converse in full sentences. Therefore, I suspect this is unlikely bacterial superinfection and likely Covid pneumonitis. She does not have an oxygen requirement and is doing well clinically, therefore is appropriate for discharge home with supportive care at this time, does not meet requirements for steroids, oxygen, remdesivir, or other specific Covid treatments at this time. Advised to isolate follow-up or return if needed. Patient is on Enbrel for her rheumatoid arthritis, she has been holding this, as well as holding all of her diabetes medications because she has not been eating, this would explain her hyperglycemia, more likely related to that than her ISABELLA. She was advised to continue taking at least her Metformin since that will not bottom her blood sugars out even if she is not eating, and I will refer her to the monoclonal antibody infusion clinic. Lab Data Attestation: I reviewed the patient's lab results. Labs: Laboratory Results - last 24 hr 04/28/21 04/28/21 04/28/21 08:51 08:55 08:55 WBC 6.6 RBC 4.55 Hgb 13.3 Hct 40.0 MCV 87.9 MCH 29.2 MCHC 33.3 RDW Std Deviation 41.1 RDW Coeff of Rudolph 12.7 Plt Count 187 MPV 11.6 Immature Gran % (Auto) 0.300 Neut % (Auto) 78.6 H Lymph % (Auto) 11.2 L [place] % (Auto) 9.6 Eos % (Auto) 0.0 Baso % (Auto) 0.3 Absolute Neuts (auto) 5.2 Absolute Lymphs (auto) 0.74 L Nucleated RBC % 0 Sodium 127 L Potassium 3.8 Chloride 91 L Carbon Dioxide 24.0 Anion Gap 12 BUN 14 Creatinine 1.30 H Estim Creat Clear Calc 38.22 Est GFR (MDRD) Af Amer 54 L Est GFR (MDRD) Non-Af 45 L BUN/Creatinine Ratio 10.8 Glucose 473 H* Calcium 8.0 L COVID-19 (ELIO) Detected Radiography Diagnostic Testing: Radiology Impression Chest X-Ray 04/28/21 09:07 IMPRESSION: Patchy bilateral pulmonary infiltrates worse in the left hemithorax. Electronically Signed: Wilberto Cutler MD at 9:25 EDT , Service support , Discharge Plan Triage Chief Complaint: Cough ED Provider: Barrera Luna Dx/Rx/DC Orders Clinical Impression: Pneumonia due to COVID-19 virus, Hyperglycemia due to type 2 diabetes mellitus, ISABELLA (acute kidney injury), Dehydration, mild Instructions: Coronavirus Disease 2019 (COVID-19): Caring for Yourself or Others, ED - COVID Monoclonal AB Infusion ... Prescriptions: New ondansetron [ondansetron] 4 MG tablet 8 mg PO Q8H PRN PRN (Reason: Nausea) Qty: 20 RF: 0 No Action prednisone 10 MG tablet 10 mg PO DAILY PRN (Reason: Pain) RF: 0 tramadol 50 MG tablet 50 mg PO Q4H PRN PRN (Reason: Pain) RF: 0 trazodone 150 MG tablet 150 mg PO QHS RF: 0 hydroxychloroquine 200 MG tablet 200 mg PO DAILYCM RF: 0 folic acid 0.4 MG tablet 0.8 mg PO BID RF: 0 methotrexate sodium 2.5 MG tablet 20 mg PO MO RF: 0 duloxetine 30 MG capsule 30 mg PO DAILY RF: 0 medroxyprogesterone 10 MG tablet 10 mg PO DAILY RF: 0 atorvastatin 40 MG tablet 40 mg PO QHS RF: 0 metformin 500 MG tablet 500 mg PO DAILY RF: 0 estradiol 0.5 MG tablet 0.5 mg PO DAILY RF: 0 epinephrine 0.3 MG syringe 0.3 mg IM X1 PRN (Reason: reaction) RF: 0 etanercept 50 MG/ML syringe 50 mg SQ WE RF: 0 Other Ambulatory Orders: COVID Outpatient Monoclonal Antibody Referral (Routine) Timeframe: 1 Day Facility: [facility] - Location: [facility] Ordered By: Dr. Barrera Luna Primary Care Provider: Fernando Brooks Referrals: Fernando Brooks MD [Primary Care Provider] - As Needed Activity Restrictions/Additional Instructions: Try to get a home portable pulse oximeter and closely watch your oxygen levels periodically. If you stay below 90% for more than a minute or so, and/or you are feeling like your breathing is getting worse, return to the emergency department for further evaluation. Disposition Disposition: Home, Self Care
[2021-04-28 09:03] LABS: Absolute Lymphocyte Count 0.74 X10^3/uL (0.83-4.51); Absolute Neutrophil Count 5.2 X10^3/uL (2.0-7.7); Basophil# 0.02 X10^3/uL; Basophil% 0.3 % (0-1); Hemoglobin 13.3 g/dL (12.0-15.0); Lymphocyte # 0.74 X10^3/ul (0.83-4.51); Lymphocyte % 11.2 % (19-41); Mean Corp Hgb Conc 33.3 g/dL (32-36); Mean Corpuscular Hgb 29.2 pg (27.0-32.0); Mean Corpuscular Volume 87.9 fL (81-99); Mean Platelet Vol. 11.6 fl (6.2-12.0); Monocyte# 0.63 X10^3/uL; Monocyte% 9.6 % (0-10); NRBC Flagged by Analyzer 0 % (0-5); Neutrophil # 5.17 X10^3/uL (2.7-7.7); Neutrophil % 78.6 % (47-70); Platelet Count 187 K/mm3 (150-450); RBC Distribution Width CV 12.7 % (11.6-14.6); RBC Distribution Width SD 41.1 fl (35.1-43.9); Red Blood Count 4.55 M/mm3 (4.2-5.4); White Blood Count 6.6 K/mm3 (4.4-11.0)
[2021-04-28] MEDS: 0.9% Normal Saline 1,000 ML 999 ML IV (09:03)
[2021-04-28] MEDS: Ondansetron 4 MG/2 ML Vial IV (09:04)
--- NOTE | 2021-04-28 09:07 | RAD_ITS ---
STUDY: X-RAY CHEST REASON FOR EXAM: Female, 55 years old. Cough, fever TECHNIQUE: Single AP portable view of the chest. COMPARISON: Comparison is made with prior study dated 09/19/2019. FINDINGS: Patchy bilateral pulmonary infiltrates worse in the left hemithorax. There is no demonstrated pleural abnormality. Normal size heart. Normal mediastinum and alta. Normal visualized pulmonary arteries. Normal visualized aortic arch and descending thoracic aorta. Normal visualized thoracic spine. Normal visualized ribs, clavicles, and shoulders. There is no demonstrated abnormality of the visualized soft tissue structures of the upper abdomen. RAD/Chest 1 View (Portable) IMPRESSION: Patchy bilateral pulmonary infiltrates worse in the left hemithorax. Electronically Signed: Wilberto Cutler MD at 9:25 EDT , Service support ,
[2021-04-28 09:23] LABS: Anion Gap 12 (5-15); BUN 14 mg/dL (7-18); BUN/Creat Ratio 10.8 RATIO (10-20); Chloride 91 mmol/L (98-107); EST Glomerular Filtration Rate 45 mL/min (>60); Est Glom Filt Rate - Afr Amer 54 mL/min (>60); Estimated Creatinine Clearance 38.22 ml/min; Glucose 473 mg/dL (74-106); Potassium 3.8 mmol/L (3.5-5.1); Sodium Level 127 mmol/L (136-145)
[2021-04-28] MEDS: Insulin Lispro 100 UNIT/ML INSULN.PEN 20 UNIT SC (10:30)
[2021-04-28 10:31] VITALS: BP 139/84; PULSE 79; RESP 16; TEMP 36.8; O2SAT 97
[2021-04-28 11:55] LABS: Bedside Glucose 368 mg/dL (70-110)
[2021-04-28 12:02] VITALS: BP 134/77; PULSE 62; RESP 17; O2SAT 97
== END 2021-04-28 12:02 | disposition home or self-care (01) ==
PROVIDERS: Emergency Provider Emergency Medicine; PCP Family Medicine
DX: U07.1 COVID-19 (principal); J12.82 Pneumonia due to coronavirus disease 2019; E11.65 Type 2 diabetes mellitus with hyperglycemia; N17.9 Acute kidney failure, unspecified; E86.0 Dehydration; E66.9 Obesity, unspecified; M19.90 Unspecified osteoarthritis, unspecified site; Z79.899 Other long term (current) drug therapy; Z79.84 Long term (current) use of oral hypoglycemic drugs
CPT/HCPCS: 71045; 80048; 82962; 85025; 87635; 96374; 99283; J7030; U0005; A4216; J2405; U0003

== ENCOUNTER 2021-04-29 14:37 | Outpatient (CLI) | payer OTHER, SELFPAY ==
[2021-04-29 14:40] VITALS: BP 119/77; PULSE 80; RESP 20; TEMP 36.9; O2SAT 90; BMI 54.1
[2021-04-29] MEDS: 0.9% Saline Lock 10 ML Syringe IV (14:50)
[2021-04-29 15:30] VITALS: BP 131/60; PULSE 79; RESP 16; TEMP 37; O2SAT 93
[2021-04-29 16:26] VITALS: BP 142/75; PULSE 89; RESP 16; TEMP 37.1; O2SAT 96
== END 2021-04-29 16:30 | disposition home or self-care (01) ==
LOC: MS3OUT 14:38 → MS3 14:40
PROVIDERS: PCP Family Medicine; Referring Provider Nurse Practitioner Adult Health; Visit Provider Nurse Practitioner Adult Health
DX: Z23 Encounter for immunization (principal); U07.1 COVID-19
CPT/HCPCS: J7050; M0243; A4216; Q0244

== ENCOUNTER → 2021-05-16 07:05 | Outpatient (CLI) | payer OTHER, SELFPAY ==
[2021-05-16 10:19] LABS: Absolute Neutrophil Count 2.6 X10^3/uL (2.0-7.7); Basophil# 0.09 X10^3/uL; Basophil% 1.3 % (0-1); Eosinophil# 0.18 X10^3/uL; Eosinophils% 2.6 % (0-5); Hematocrit 36.1 % (37-47); Hemoglobin 11.4 g/dL (12.0-15.0); Lymphocyte % 49.4 % (19-41); Mean Corp Hgb Conc 31.6 g/dL (32-36); Mean Corpuscular Hgb 28.9 pg (27.0-32.0); Mean Corpuscular Volume 91.4 fL (81-99); Mean Platelet Vol. 12.1 fl (6.2-12.0); Monocyte# 0.58 X10^3/uL; Monocyte% 8.4 % (0-10); NRBC Flagged by Analyzer 0 % (0-5); Neutrophil # 2.61 X10^3/uL (2.7-7.7); Platelet Count 257 K/mm3 (150-450); RBC Distribution Width CV 13.2 % (11.6-14.6); RBC Distribution Width SD 44.4 fl (35.1-43.9); Red Blood Count 3.95 M/mm3 (4.2-5.4); White Blood Count 6.9 K/mm3 (4.4-11.0)
[2021-05-16 10:50] LABS: ALB/GLOB Ratio 0.7 RATIO (0.9-2.4); AST(SGOT) 21 U/L (15-37); Alanine Aminotransfer ALT/SGPT 19 U/L (13-56); Albumin, Serum 2.6 g/dL (3.2-5.0); Alkaline Phosphatase 71 U/L (45-117); Anion Gap 10 (5-15); BUN 10 mg/dL (7-18); BUN/Creat Ratio 12.8 RATIO (10-20); Calcium,Total 8.5 mg/dL (8.5-10.1); Chloride 102 mmol/L (98-107); Creatinine, Serum 0.78 mg/dL (0.55-1.02); EST Glomerular Filtration Rate 81 mL/min (>60); Est Glom Filt Rate - Afr Amer 98 mL/min (>60); Globulin 3.6 g/dL (2.2-4.2); Glucose 210 mg/dL (74-106); Potassium 4.2 mmol/L (3.5-5.1); Protein, Total 6.2 g/dL (6.4-8.2); Sodium Level 139 mmol/L (136-145)
== END ==
PROVIDERS: PCP Family Medicine; Referring Provider Internal Medicine Rheumatology; Visit Provider Internal Medicine Rheumatology
DX: M06.09 Rheumatoid arthritis without rheumatoid factor, multiple sites (principal); M79.7 Fibromyalgia; M17.0 Bilateral primary osteoarthritis of knee; M18.11 Unilateral primary osteoarthritis of first carpometacarpal joint, right hand; J45.909 Unspecified asthma, uncomplicated; Z79.899 Other long term (current) drug therapy
CPT/HCPCS: 36415; 80053; 85025

== ENCOUNTER 2021-08-23 07:03 | Outpatient (CLI) | payer OTHER, SELFPAY ==
[2021-08-23 10:02] LABS: Absolute Lymphocyte Count 3.35 X10^3/uL (0.83-4.51); Absolute Neutrophil Count 5.6 X10^3/uL (2.0-7.7); Basophil# 0.09 X10^3/uL; Basophil% 0.9 % (0-1); Eosinophil# 0.13 X10^3/uL; Eosinophils% 1.3 % (0-5); Hematocrit 40.1 % (37-47); Hemoglobin 12.9 g/dL (12.0-15.0); Lymphocyte # 3.35 X10^3/ul (0.83-4.51); Lymphocyte % 34.4 % (19-41); Mean Corp Hgb Conc 32.2 g/dL (32-36); Mean Corpuscular Hgb 28.9 pg (27.0-32.0); Mean Corpuscular Volume 89.9 fL (81-99); Mean Platelet Vol. 11.4 fl (6.2-12.0); Monocyte# 0.49 X10^3/uL; NRBC Flagged by Analyzer 0 % (0-5); Neutrophil # 5.63 X10^3/uL (2.7-7.7); Platelet Count 292 K/mm3 (150-450); RBC Distribution Width CV 12.8 % (11.6-14.6); RBC Distribution Width SD 42.1 fl (35.1-43.9); Red Blood Count 4.46 M/mm3 (4.2-5.4); White Blood Count 9.7 K/mm3 (4.4-11.0)
[2021-08-23 10:16] LABS: ALB/GLOB Ratio 0.8 RATIO (0.9-2.4); AST(SGOT) 16 U/L (15-37); Alanine Aminotransfer ALT/SGPT 25 U/L (13-56); Albumin, Serum 3.3 g/dL (3.2-5.0); Alkaline Phosphatase 94 U/L (45-117); Anion Gap 9 (5-15); BUN 16 mg/dL (7-18); BUN/Creat Ratio 16.2 RATIO (10-20); Calcium,Total 8.7 mg/dL (8.5-10.1); Chloride 104 mmol/L (98-107); Cholesterol 231 mg/dL (200); Creatinine, Serum 0.99 mg/dL (0.55-1.02); EST Glomerular Filtration Rate 62 mL/min (>60); Est Glom Filt Rate - Afr Amer 75 mL/min (>60); Glucose 238 mg/dL (74-106); High Density Lipoprotein 70 mg/dL; Potassium 4.2 mmol/L (3.5-5.1); Protein, Total 7.3 g/dL (6.4-8.2); Sodium Level 135 mmol/L (136-145); Triglycerides 137 mg/dL; Very Low Density Lipoprotein 27 mg/dL (5-40)
[2021-08-23 10:26] LABS: Microalbumin,Random Urine 46.8 mg/L (NO RANGE EST.)
[2021-08-23 14:27] LABS: Hemoglobin A1c 9.6 % (3.8-5.6)
== END 2021-08-23 23:59 | disposition short-term general hospital (02) ==
LOC: MTLAB 07:04
PROVIDERS: PCP Family Medicine; Referring Provider Family Medicine; Visit Provider Family Medicine
DX: M06.09 Rheumatoid arthritis without rheumatoid factor, multiple sites (principal); E11.9 Type 2 diabetes 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s; Z79.899 Other long term (current) drug therapy; M79.7 Fibromyalgia; M17.0 Bilateral primary osteoarthritis of knee; M18.11 Unilateral primary osteoarthritis of first carpometacarpal joint, right hand; F32.89 Other specified depressive episodes; J45.909 Unspecified asthma, uncomplicated
CPT/HCPCS: 36415; 80053; 80061; 82043; 83036; 85025

== ENCOUNTER → 2021-11-21 | Outpatient (CLI) | payer OTHER, SELFPAY ==
--- NOTE | 2021-11-21 07:05 | BI_ITS ---
MAMMOGRAPHY - BILATERAL SCREENING 3-D TOMOSYNTHESIS REASON FOR EXAM: Female, 55 years old. SCREENING PERTINENT HISTORY: No significant family history. TECHNIQUE: 2-D mammograms and 3-D Tomosynthesis of the breast (s) were performed. CAD was performed. COMPARISON: 05/21/2014 FINDINGS: The breast composition is heterogeneously dense that can obscure small breast masses. Scattered benign calcifications are seen. No dense spiculated masses or suspicious microcalcifications are identified. No architectural distortion is identified. There is no skin thickening or retraction. There has been no significant change since the prior study. BI/SCRN MAMM (CAD)W/DEVON BILAT IMPRESSION: No mammographic signs of malignancy. Routine yearly mammograms recommended. ASSESSMENT CATEGORY: BIRADS Category 1: Negative. A letter regarding these results will be sent to the patient by the facility within 30 days. FOLLOW UP RECOMMENDATION: Yearly follow up mammogram recommended. (A) Approximately 10% of breast cancers are not detected by mammography. A normal mammogram should not delay biopsy of a clinically suspicious abnormality. Electronically Signed: Hugo Gunderson MD at 8:35 EDT ,
== END | disposition home or self-care (01) ==
LOC: OPBI 07:04
PROVIDERS: PCP Family Medicine; Visit Provider Obstetrics & Gynecology
DX: Z12.31 Encounter for screening mammogram for malignant neoplasm of breast (principal)
CPT/HCPCS: 77063; 77067

== ENCOUNTER → 2021-12-06 | Outpatient (CLI) | payer OTHER, SELFPAY ==
[2021-12-06 10:12] LABS: Absolute Lymphocyte Count 2.87 X10^3/uL (0.83-4.51); Absolute Neutrophil Count 3.3 X10^3/uL (2.0-7.7); Basophil# 0.07 X10^3/uL; Eosinophil# 0.17 X10^3/uL; Eosinophils% 2.4 % (0-5); Hematocrit 35.8 % (37-47); Hemoglobin 11.5 g/dL (12.0-15.0); Lymphocyte # 2.87 X10^3/ul (0.83-4.51); Lymphocyte % 41.2 % (19-41); Mean Corp Hgb Conc 32.1 g/dL (32-36); Mean Corpuscular Hgb 29.3 pg (27.0-32.0); Mean Corpuscular Volume 91.3 fL (81-99); Mean Platelet Vol. 11.1 fl (6.2-12.0); Monocyte# 0.53 X10^3/uL; Monocyte% 7.6 % (0-10); NRBC Flagged by Analyzer 0 % (0-5); Neutrophil % 47.5 % (47-70); Platelet Count 258 K/mm3 (150-450); RBC Distribution Width SD 43.5 fl (35.1-43.9); Red Blood Count 3.92 M/mm3 (4.2-5.4)
[2021-12-06 11:17] LABS: AST(SGOT) 13 U/L (15-37); Alanine Aminotransfer ALT/SGPT 22 U/L (13-56); Albumin, Serum 3.3 g/dL (3.2-5.0); Alkaline Phosphatase 76 U/L (45-117); Anion Gap 7 (5-15); BUN 15 mg/dL (7-18); BUN/Creat Ratio 17.4 RATIO (10-20); Calcium,Total 8.5 mg/dL (8.5-10.1); Chloride 108 mmol/L (98-107); Creatinine, Serum 0.86 mg/dL (0.55-1.02); EST Glomerular Filtration Rate 72 mL/min (>60); Est Glom Filt Rate - Afr Amer 87 mL/min (>60); Globulin 3.4 g/dL (2.2-4.2); Glucose 198 mg/dL (74-106); Potassium 4.1 mmol/L (3.5-5.1); Protein, Total 6.7 g/dL (6.4-8.2); Sodium Level 138 mmol/L (136-145)
== END | disposition home or self-care (01) ==
LOC: MTLAB 07:10
PROVIDERS: PCP Family Medicine; Referring Provider Internal Medicine Rheumatology; Visit Provider Internal Medicine Rheumatology
DX: M06.09 Rheumatoid arthritis without rheumatoid factor, multiple sites (principal); M79.7 Fibromyalgia; M17.0 Bilateral primary osteoarthritis of knee; M18.11 Unilateral primary osteoarthritis of first carpometacarpal joint, right hand; J45.909 Unspecified asthma, uncomplicated; Z79.899 Other long term (current) drug therapy
CPT/HCPCS: 36415; 80053; 85025

== ENCOUNTER → 2022-03-03 | Outpatient (CLI) | payer OTHER, SELFPAY ==
[2022-03-03 14:58] LABS: Absolute Lymphocyte Count 2.54 X10^3/uL (0.83-4.51); Absolute Neutrophil Count 4.8 X10^3/uL (2.0-7.7); Basophil# 0.09 X10^3/uL; Basophil% 1.1 % (0-1); Eosinophils% 1.2 % (0-5); Hematocrit 39.6 % (37-47); Lymphocyte # 2.54 X10^3/ul (0.83-4.51); Lymphocyte % 31.4 % (19-41); Mean Corp Hgb Conc 32.8 g/dL (32-36); Mean Corpuscular Hgb 30.2 pg (27.0-32.0); Mean Corpuscular Volume 91.9 fL (81-99); Mean Platelet Vol. 11.3 fl (6.2-12.0); Monocyte# 0.54 X10^3/uL; Monocyte% 6.7 % (0-10); NRBC Flagged by Analyzer 0 % (0-5); Neutrophil # 4.81 X10^3/uL (2.7-7.7); Neutrophil % 59.4 % (47-70); Platelet Count 258 K/mm3 (150-450); RBC Distribution Width CV 13.1 % (11.6-14.6); Red Blood Count 4.31 M/mm3 (4.2-5.4); White Blood Count 8.1 K/mm3 (4.4-11.0)
[2022-03-03 15:30] LABS: AST(SGOT) 13 U/L (15-37); Alanine Aminotransfer ALT/SGPT 29 U/L (13-56); Albumin, Serum 3.5 g/dL (3.2-5.0); Alkaline Phosphatase 76 U/L (45-117); Anion Gap 7 (5-15); BUN 20 mg/dL (7-18); Chloride 105 mmol/L (98-107); Creatinine, Serum 0.91 mg/dL (0.55-1.02); EST Glomerular Filtration Rate 68 mL/min (>60); Est Glom Filt Rate - Afr Amer 82 mL/min (>60); Globulin 3.5 g/dL (2.2-4.2); Glucose 243 mg/dL (74-106); Sodium Level 136 mmol/L (136-145)
== END | disposition home or self-care (01) ==
LOC: MTLAB 13:11
PROVIDERS: PCP Family Medicine; Referring Provider Internal Medicine Rheumatology; Visit Provider Internal Medicine Rheumatology
DX: M06.09 Rheumatoid arthritis without rheumatoid factor, multiple sites (principal); M79.7 Fibromyalgia; M17.0 Bilateral primary osteoarthritis of knee; M18.11 Unilateral primary osteoarthritis of first carpometacarpal joint, right hand; F32.89 Other specified depressive episodes; J45.909 Unspecified asthma, uncomplicated; Z79.899 Other long term (current) drug therapy
CPT/HCPCS: 36415; 80053; 85025

== ENCOUNTER → 2022-06-09 | Outpatient (CLI) | payer OTHER, SELFPAY ==
[2022-06-09 09:59] LABS: Absolute Lymphocyte Count 3.58 X10^3/uL (0.83-4.51); Absolute Neutrophil Count 4.1 X10^3/uL (2.0-7.7); Basophil# 0.09 X10^3/uL; Eosinophil# 0.15 X10^3/uL; Eosinophils% 1.7 % (0-5); Hemoglobin 12.9 g/dL (12.0-15.0); Lymphocyte # 3.58 X10^3/ul (0.83-4.51); Lymphocyte % 40.6 % (19-41); Mean Corp Hgb Conc 31.5 g/dL (32-36); Mean Corpuscular Volume 92.1 fL (81-99); Mean Platelet Vol. 11.1 fl (6.2-12.0); Monocyte# 0.89 X10^3/uL; Monocyte% 10.1 % (0-10); NRBC Flagged by Analyzer 0 % (0-5); Neutrophil # 4.07 X10^3/uL (2.7-7.7); Neutrophil % 46.1 % (47-70); Platelet Count 295 K/mm3 (150-450); RBC Distribution Width CV 12.7 % (11.6-14.6); RBC Distribution Width SD 42.7 fl (35.1-43.9); Red Blood Count 4.45 M/mm3 (4.2-5.4); White Blood Count 8.8 K/mm3 (4.4-11.0)
[2022-06-09 10:19] LABS: Hemoglobin A1c 9.4 % (3.8-5.6)
[2022-06-09 10:55] LABS: AST(SGOT) 14 U/L (15-37); Alanine Aminotransfer ALT/SGPT 21 U/L (13-56); Albumin, Serum 3.2 g/dL (3.2-5.0); Alkaline Phosphatase 96 U/L (45-117); Anion Gap 9 (5-15); BUN 19 mg/dL (7-18); BUN/Creat Ratio 23.6 RATIO (10-20); Calcium,Total 8.7 mg/dL (8.5-10.1); Chloride 104 mmol/L (98-107); EST Glomerular Filtration Rate 78 mL/min (>60); Est Glom Filt Rate - Afr Amer 94 mL/min (>60); Globulin 3.3 g/dL (2.2-4.2); Glucose 211 mg/dL (74-106); Protein, Total 6.5 g/dL (6.4-8.2); Sodium Level 137 mmol/L (136-145)
== END | disposition home or self-care (01) ==
LOC: MTLAB 07:03
PROVIDERS: Internal Medicine Rheumatology; PCP Family Medicine; Referring Provider Family Medicine; Visit Provider Family Medicine
DX: M06.09 Rheumatoid arthritis without rheumatoid factor, multiple sites (principal); M79.7 Fibromyalgia; M17.0 Bilateral primary osteoarthritis of knee; M18.11 Unilateral primary osteoarthritis of first carpometacarpal joint, right hand; J45.909 Unspecified asthma, uncomplicated; Z79.899 Other long term (current) drug therapy
CPT/HCPCS: 36415; 80053; 83036; 85025

== ENCOUNTER → 2022-08-29 | Outpatient (CLI) | payer OTHER, SELFPAY ==
[2022-08-29 10:07] LABS: Absolute Neutrophil Count 2.7 X10^3/uL (2.0-7.7); Basophil# 0.05 X10^3/uL; Basophil% 0.9 % (0-1); Eosinophil# 0.14 X10^3/uL; Eosinophils% 2.4 % (0-5); Hematocrit 42.4 % (37-47); Hemoglobin 13.5 g/dL (12.0-15.0); Lymphocyte % 40.9 % (19-41); Mean Corp Hgb Conc 31.8 g/dL (32-36); Mean Corpuscular Hgb 28.4 pg (27.0-32.0); Mean Corpuscular Volume 89.3 fL (81-99); Mean Platelet Vol. 11.2 fl (6.2-12.0); Monocyte# 0.55 X10^3/uL; Monocyte% 9.4 % (0-10); NRBC Flagged by Analyzer 0 % (0-5); Neutrophil # 2.72 X10^3/uL (2.7-7.7); Neutrophil % 46.2 % (47-70); Platelet Count 290 K/mm3 (150-450); RBC Distribution Width CV 12.8 % (11.6-14.6); RBC Distribution Width SD 42.4 fl (35.1-43.9); Red Blood Count 4.75 M/mm3 (4.2-5.4); White Blood Count 5.9 K/mm3 (4.4-11.0)
[2022-08-29 10:25] LABS: Hemoglobin A1c 7.6 % (3.8-5.6)
[2022-08-29 10:26] LABS: AST(SGOT) 14 U/L (15-37); Alanine Aminotransfer ALT/SGPT 17 U/L (13-56); Albumin, Serum 3.4 g/dL (3.2-5.0); Alkaline Phosphatase 82 U/L (45-117); Anion Gap 9 (5-15); BUN 11 mg/dL (7-18); Chloride 106 mmol/L (98-107); Creatinine, Serum 0.79 mg/dL (0.55-1.02); EST Glomerular Filtration Rate 80 mL/min (>60); Est Glom Filt Rate - Afr Amer 97 mL/min (>60); Globulin 3.5 g/dL (2.2-4.2); Glucose 186 mg/dL (74-106); Potassium 3.8 mmol/L (3.5-5.1); Protein, Total 6.9 g/dL (6.4-8.2); Sodium Level 139 mmol/L (136-145)
== END | disposition home or self-care (01) ==
LOC: MTLAB 07:06
PROVIDERS: Internal Medicine Rheumatology; PCP Family Medicine; Referring Provider Family Medicine; Visit Provider Family Medicine
DX: M06.09 Rheumatoid arthritis without rheumatoid factor, multiple sites (principal); E11.9 Type 2 diabetes 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s; M79.7 Fibromyalgia; M17.0 Bilateral primary osteoarthritis of knee; M18.11 Unilateral primary osteoarthritis of first carpometacarpal joint, right hand; J45.909 Unspecified asthma, uncomplicated
CPT/HCPCS: 36415; 80053; 83036; 85025

== ENCOUNTER → 2022-11-20 | Outpatient (CLI) | payer OTHER, SELFPAY ==
[2022-11-20 09:58] LABS: Absolute Lymphocyte Count 3.28 X10^3/uL (0.83-4.51); Absolute Neutrophil Count 3.6 X10^3/uL (2.0-7.7); Basophil# 0.11 X10^3/uL; Basophil% 1.4 % (0-1); Eosinophil# 0.17 X10^3/uL; Eosinophils% 2.2 % (0-5); Hematocrit 40.6 % (37-47); Hemoglobin 12.8 g/dL (12.0-15.0); Lymphocyte # 3.28 X10^3/ul (0.83-4.51); Lymphocyte % 42.4 % (19-41); Mean Corp Hgb Conc 31.5 g/dL (32-36); Mean Corpuscular Hgb 28.8 pg (27.0-32.0); Mean Corpuscular Volume 91.2 fL (81-99); Monocyte% 7.8 % (0-10); NRBC Flagged by Analyzer 0 % (0-5); Neutrophil # 3.56 X10^3/uL (2.7-7.7); Neutrophil % 45.9 % (47-70); Platelet Count 254 K/mm3 (150-450); RBC Distribution Width CV 13.2 % (11.6-14.6); RBC Distribution Width SD 44.1 fl (35.1-43.9); Red Blood Count 4.45 M/mm3 (4.2-5.4); White Blood Count 7.7 K/mm3 (4.4-11.0)
[2022-11-20 10:04] LABS: AST(SGOT) 12 U/L (15-37); Alanine Aminotransfer ALT/SGPT 17 U/L (13-56); Albumin, Serum 3.3 g/dL (3.2-5.0); Alkaline Phosphatase 89 U/L (45-117); Anion Gap 5 (5-15); BUN 19 mg/dL (7-18); BUN/Creat Ratio 23.3 RATIO (10-20); Calcium,Total 8.5 mg/dL (8.5-10.1); Chloride 106 mmol/L (98-107); Creatinine, Serum 0.81 mg/dL (0.55-1.02); EST Glomerular Filtration Rate 77 mL/min (>60); Est Glom Filt Rate - Afr Amer 93 mL/min (>60); Globulin 3.4 g/dL (2.2-4.2); Glucose 165 mg/dL (74-106); Protein, Total 6.7 g/dL (6.4-8.2); Sodium Level 135 mmol/L (136-145)
== END | disposition home or self-care (01) ==
PROVIDERS: PCP Family Medicine; Referring Provider Internal Medicine Rheumatology; Visit Provider Internal Medicine Rheumatology
DX: M06.09 Rheumatoid arthritis without rheumatoid factor, multiple sites (principal); E11.9 Type 2 diabetes 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s; M79.7 Fibromyalgia; M17.0 Bilateral primary osteoarthritis of knee; M18.11 Unilateral primary osteoarthritis of first carpometacarpal joint, right hand; J45.909 Unspecified asthma, uncomplicated; Z79.899 Other long term (current) drug therapy
CPT/HCPCS: 36415; 80053; 85025

== ENCOUNTER → 2022-12-21 | Outpatient (CLI) | payer OTHER, SELFPAY ==
[2022-12-21 10:21] LABS: Hemoglobin A1c 7.5 % (3.8-5.6)
== END | disposition home or self-care (01) ==
LOC: MTLAB 07:05
PROVIDERS: PCP Family Medicine; Referring Provider Family Medicine; Visit Provider Family Medicine
DX: E11.9 Type 2 diabetes 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s (principal)
CPT/HCPCS: 36415; 83036

== ENCOUNTER → 2023-02-09 | Outpatient (CLI) | payer OTHER, SELFPAY ==
[2023-02-09 10:35] LABS: Absolute Lymphocyte Count 2.95 X10^3/uL (0.83-4.51); Absolute Neutrophil Count 3.6 X10^3/uL (2.0-7.7); Basophil# 0.11 X10^3/uL; Basophil% 1.5 % (0-1); Eosinophil# 0.16 X10^3/uL; Eosinophils% 2.2 % (0-5); Hemoglobin 13.2 g/dL (12.0-15.0); Lymphocyte # 2.95 X10^3/ul (0.83-4.51); Lymphocyte % 39.8 % (19-41); Mean Corp Hgb Conc 31.4 g/dL (32-36); Mean Corpuscular Hgb 29.2 pg (27.0-32.0); Mean Corpuscular Volume 92.9 fL (81-99); Mean Platelet Vol. 11.4 fl (6.2-12.0); Monocyte# 0.54 X10^3/uL; Monocyte% 7.3 % (0-10); NRBC Flagged by Analyzer 0 % (0-5); Neutrophil # 3.63 X10^3/uL (2.7-7.7); Neutrophil % 48.9 % (47-70); Platelet Count 284 K/mm3 (150-450); RBC Distribution Width CV 13.1 % (11.6-14.6); RBC Distribution Width SD 44.8 fl (35.1-43.9); Red Blood Count 4.52 M/mm3 (4.2-5.4); White Blood Count 7.4 K/mm3 (4.4-11.0)
[2023-02-09 10:52] LABS: ALB/GLOB Ratio 0.9 RATIO (0.9-2.4); AST(SGOT) 14 U/L (15-37); Alanine Aminotransfer ALT/SGPT 22 U/L (13-56); Albumin, Serum 3.4 g/dL (3.2-5.0); Alkaline Phosphatase 94 U/L (45-117); Anion Gap 7 (5-15); BUN 15 mg/dL (7-18); BUN/Creat Ratio 16.8 RATIO (10-20); Calcium,Total 9.1 mg/dL (8.5-10.1); Chloride 105 mmol/L (98-107); Creatinine, Serum 0.89 mg/dL (0.55-1.02); EST Glomerular Filtration Rate 69 mL/min (>60); Est Glom Filt Rate - Afr Amer 83 mL/min (>60); Globulin 3.6 g/dL (2.2-4.2); Glucose 196 mg/dL (74-106); Potassium 4.8 mmol/L (3.5-5.1); Sodium Level 138 mmol/L (136-145)
== END | disposition home or self-care (01) ==
LOC: MTLAB 07:08
PROVIDERS: PCP Family Medicine; Referring Provider Internal Medicine Rheumatology; Visit Provider Internal Medicine Rheumatology
DX: M06.09 Rheumatoid arthritis without rheumatoid factor, multiple sites (principal); E11.9 Type 2 diabetes 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s; M79.7 Fibromyalgia; M17.0 Bilateral primary osteoarthritis of knee; M18.11 Unilateral primary osteoarthritis of first carpometacarpal joint, right hand; J45.909 Unspecified asthma, uncomplicated; Z79.899 Other long term (current) drug therapy
CPT/HCPCS: 36415; 80053; 85025

== ENCOUNTER → 2023-04-03 | Outpatient (CLI) | payer OTHER, SELFPAY ==
--- NOTE | 2023-04-03 16:10 | BI_ITS ---
MAMMOGRAPHY - BILATERAL SCREENING REASON FOR EXAM: Female, 57 years old. Routine annual screening examination. PERTINENT HISTORY: Non-contributory. TECHNIQUE: Digital bilateral breast devon (3D mammographic acquisition) in the CC and MLO projections. 2-D mediolateral oblique (MLO) and craniocaudad (CC) views of both breasts were obtained. CAD: Full Field Digital Mammography with Computer Added Detection was performed. COMPARISON: Comparison is made with prior study dated November 21, 2021 and May 21, 2014. FINDINGS: Breast Composition: There are scattered areas of fibroglandular density. There are no dominant masses or suspicious calcifications. Stable benign-appearing bilateral axillary lymph nodes. No other significant abnormalities are identified. There has been no significant change since the prior study. BI/SCRN MAMM (CAD)W/DEVON BILAT IMPRESSION: Stable bilateral screening mammogram. Yearly follow-up mammogram recommended. (A) ASSESSMENT CATEGORY: BIRADS Category 2: Benign. A letter regarding these results will be sent to the patient by the facility within 30 days. Approximately 10% of breast cancers are not detected by mammography. A normal mammogram should not delay biopsy of a clinically suspicious abnormality. [id number] Electronically Signed: Wilberto Cutler MD at 8:38 EDT ,
== END | disposition home or self-care (01) ==
LOC: OPBI 16:08
PROVIDERS: PCP Family Medicine; Referring Provider Obstetrics & Gynecology; Visit Provider Obstetrics & Gynecology
DX: Z12.31 Encounter for screening mammogram for malignant neoplasm of breast (principal)
CPT/HCPCS: 77063; 77067

== ENCOUNTER → 2023-05-09 | Outpatient (CLI) | payer OTHER, SELFPAY ==
[2023-05-09 10:21] LABS: Absolute Lymphocyte Count 2.55 X10^3/uL (0.83-4.51); Absolute Neutrophil Count 2.3 X10^3/uL (2.0-7.7); Basophil# 0.06 X10^3/uL; Basophil% 1.1 % (0-1); Eosinophil# 0.16 X10^3/uL; Eosinophils% 2.8 % (0-5); Hemoglobin 12.1 g/dL (12.0-15.0); Lymphocyte # 2.55 X10^3/ul (0.83-4.51); Lymphocyte % 45.4 % (19-41); Mean Corpuscular Volume 93.5 fL (81-99); Mean Platelet Vol. 12.6 fl (6.2-12.0); Monocyte# 0.58 X10^3/uL; Monocyte% 10.3 % (0-10); NRBC Flagged by Analyzer 0 % (0-5); Neutrophil # 2.26 X10^3/uL (2.7-7.7); Neutrophil % 40.2 % (47-70); Platelet Count 220 K/mm3 (150-450); RBC Distribution Width CV 13.4 % (11.6-14.6); RBC Distribution Width SD 46.3 fl (35.1-43.9); Red Blood Count 4.17 M/mm3 (4.2-5.4); White Blood Count 5.6 K/mm3 (4.4-11.0)
[2023-05-09 10:54] LABS: ALB/GLOB Ratio 1.1 RATIO (0.9-2.4); AST(SGOT) 18 U/L (15-37); Alanine Aminotransfer ALT/SGPT 22 U/L (13-56); Albumin, Serum 3.5 g/dL (3.2-5.0); Alkaline Phosphatase 84 U/L (45-117); Anion Gap 6 (5-15); BUN 12 mg/dL (7-18); BUN/Creat Ratio 15.5 RATIO (10-20); Calcium,Total 8.3 mg/dL (8.5-10.1); Chloride 109 mmol/L (98-107); Creatinine, Serum 0.77 mg/dL (0.55-1.02); EST Glomerular Filtration Rate 82 mL/min (>60); Est Glom Filt Rate - Afr Amer 99 mL/min (>60); Globulin 3.1 g/dL (2.2-4.2); Glucose 131 mg/dL (74-106); Potassium 3.9 mmol/L (3.5-5.1); Protein, Total 6.6 g/dL (6.4-8.2); Sodium Level 139 mmol/L (136-145)
== END | disposition home or self-care (01) ==
LOC: MTLAB 07:02
PROVIDERS: PCP Family Medicine; Referring Provider Internal Medicine Rheumatology; Visit Provider Internal Medicine Rheumatology
DX: M06.09 Rheumatoid arthritis without rheumatoid factor, multiple sites (principal); M79.7 Fibromyalgia; M17.0 Bilateral primary osteoarthritis of knee; M18.11 Unilateral primary osteoarthritis of first carpometacarpal joint, right hand; Z79.899 Other long term (current) drug therapy
CPT/HCPCS: 36415; 80053; 85025

== ENCOUNTER → 2023-07-06 | Outpatient (CLI) | payer OTHER, SELFPAY ==
[2023-07-07 09:09] LABS: Hemoglobin A1c 6.6 % (3.8-5.6)
== END | disposition home or self-care (01) ==
LOC: MTLAB 07:05
PROVIDERS: PCP Family Medicine; Referring Provider Family Medicine; Visit Provider Family Medicine
DX: E11.9 Type 2 diabetes 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s (principal)
CPT/HCPCS: 36415; 83036

== ENCOUNTER → 2023-08-07 | Outpatient (CLI) | payer OTHER, SELFPAY ==
--- OUTSIDE RECORDS SUMMARY | 2023-08-07 07:15 | XMS RPT_ITS | CCD ---
Author Name Unknown Address [address] [place] [address] Organization [facility] Care Team Providers Care Rn [employer] Name Role Phone Todd, April Unavailable Unavailable Stencel, April Unavailable Unavailable Stencel, April Unavailable Unavailable Stencel, April Unavailable Unavailable Stencel, April Unavailable Unavailable Stencel, April Unavailable Unavailable Stencel, April Unavailable Unavailable Stencel, April Unavailable Unavailable Stencel, April Unavailable Unavailable Stencel, April Unavailable Unavailable Stencel, April Cade Unavailable Unavailable Stencel, April Cade Unavailable Unavailable Unavailable April Brooks MD Primary Care Provider Todd, Dr. April Uribe Attending Unava ilable Stencel, Dr. April Uribe Primary Care Unava ilable Stencel, Dr. April Uribe Referring Unava ilable Stencel, Dr. April Uribe Attending Unava ilable Stencel, Dr. April Uribe Primary Care Unava ilable Stencel, Dr. April Uribe Referring Unava ilable Stencel, Dr. April Uribe Attending Unava ilable Stencel, Dr. April Uribe Primary Care Unava ilable Stencel, Dr. April Uribe Referring Unava ilable Stencel April SANCHEZ Primary Care Provider April Brooks MD Primary Care Provider CARLY BARCENAS Referring Unavailable STENCEL, APRIL Primary Care Unavailable CARLY BARCENAS Attending Unavailable SELF, SELF Referring Unavailable STENCEL, APRIL Primary Care Unavailable JAN HERNANDEZ Attending Unavailable CARLY BARCENAS Attending Unavailable CARLY BARCENAS Referring Unavailable STENCEL, APRIL Primary Care Unavailable STENCEL, APRIL Referring Unavailable STENCEL, APRIL Primary Care Unavailable TAHIRROSANNE Attending Unavailable STENCEL, APRIL Referring Unavailable TAHIRROSANNE Attending Unavailable STENCEL, APRIL Primary Care Unavailable CARLY BARCENAS Attending Unavailable CARLY BARCENAS Referring Unavailable STENCEL, APRIL Primary Care Unavailable CARLY BARCENAS Admitting Unavailable CARLY BARCENAS Referring Unavailable STENCEL, APRIL Primary Care Unavailable CARLY BARCENAS Attending Unavailable CONSULT, GENERAL MEDICINE Consulting Unavai lable SELF, SELF Referring Unavailable BOROFFJAN Attending Unavailable STENCEL, APRIL Primary Care Unavailable SELF, SELF Referring Unavailable ABHISHEK QUIROZ Attending Unavailable STENCEL, APRIL Primary Care Unavailable TAHIR, ROSANNE Cade Attending Unavailable CARLY BARCENAS Referring Unavailable STENCEL, APRIL Primary Care Unavailable SELF, SELF Referring Unavailable CARLY BARCENAS Attending Unavailable STENCEL, APRIL Primary Care Unavailable STENCEL, APRIL Referring Unavailable TAHIRROSANNE Attending Unavailable STENCEL, APRIL Primary Care Unavailable CARLY BARCENAS Referring Unavailable BOROFFJAN Attending Unavailable STENCEL, APRIL Primary Care Unavailable SELF, SELF Referring Unavailable LEISAOFFJAN Attending Unavailable STENCEL, APRIL Primary Care Unavailable CARLY BARCENAS Referring Unavailable TAHIRROSANNE Attending Unavailable STENCEL, APRIL Primary Care Unavailable CARLY BARCENAS Referring Unavailable STENCEL, APRIL Primary Care Unavailable CARLY BARCENAS Attending Unavailable SELF, SELF Referring Unavailable LEISAOFFJAN Attending Unavailable STENCEL, APRIL Primary Care Unavailable STENCEL, APRIL Referring Unavailable STENCEL, APRIL Primary Care Unavailable CARLY BARCEANS Attending Unavailable SELF, SELF Referring Unavailable JAN HERNANDEZ Attending Unavailable STENCEL, APRIL Primary Care Unavailable SELF, SELF Referring Unavailable STENCEL, APRIL Primary Care Unavailable JAN HERNANDEZ Attending Unavailable CARLY BARCENAS Referring Unavailable STENCEL, APRIL Primary Care Unavailable CARLY BARCENAS Attending Unavailable CARLY BARCENAS Referring Unavailable ABHISHEK QUIROZ Attending Unavailable STENCEL, APRIL Primary Care Unavailable SELF, SELF Referring Unavailable CARLY BARCENAS Attending Unavailable STENCEL, APRIL Primary Care Unavailable STENCEL, APRIL D Attending Unavailable STENCEL, APRIL D Referring Unavailable STENCEL, APRIL D Primary Care Unavailable STENCEL, APRIL D Attending Unavailable STENCEL, APRIL D Referring Unavailable STENCEL, APRIL D Primary Care Unavailable STENCEL, APRIL Cade Attending Unavailable STENCEL, APRIL D Primary Care Unavailable STENCEL, APRIL Primary Care Unavailable CARLY BARCENAS Attending Unavailable CARLY BARCENAS Referring Unavailable STENCEL, APRIL Primary Care Unavailable TAHIR, ROSANNE Cade Attending Unavailable TAHIR, ROSANNE D Referring Unavailable SELF, SELF Referring Unavailable APRIL BROOKS Primary Care Unavailable CARLY BARCENAS Attending Unavailable APRIL BROOKS Primary Care Unavailable CARLY BARCENAS Attending Unavailable SELF, SELF Referring Unavailable Allergies Allergy Classification Reported Allergen(s) Allergy Type Date of Onset Reaction(s) Facility (10 sources) Cephalexin; Translations: [Keflex] Drug Allergy [facility] Repository (20 sources) Latex; Translations: [Latex] Propensity to adverse reactions (disorder) 08-24-19 Hives, Redness [facility] Repository (10 sources) levoFLOXacin; Translations: [Levaquin] Drug Allergy [facility] Repository (10 sources) Sulfamethoxazole / Trimethoprim; Translations: [Bactrim] Drug Allergy Chest Pain [facility] Repository (9 sources) Latex rubber gloves; Translations: [Latex Gloves] [facility]: (20 sources) Cephalexin; Translations: [CEPHALEXIN] Drug [facility] levoFLOXacin; Translations: [LEVOFLOXACIN] Drug Allergy 08-24-19 [facility] (19 sources) Sulfonamides (Antibiotic) Propensity to adverse reactions to drug 08-24-19 [facility] (4 sources) Sulfamethoxazole / Trimethoprim; Translations: [SULFAMETHOXAZOLE-T RIMETHOPRIM] Drug Allergy 08-24-19 Palpitations [facility] Work Phone: (5 sources) Not Able To Determine Propensity to adverse reactions 03-27-20 Anaphylaxis [facility] Medications Current Medications Medication Drug Class(es) Dates Sig (Normalized) Sig (Original) 0.5 ml dulaglutide 1.5 mg/ml auto-injector (20 sources) GLP-1 Receptor Agonist Start: 03-28-2023 inject 1.5 mg by subcutaneous injection every week Trulicity 0.75 mg/0.5 mL pen injector Indications: Type 2 diabetes 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, without long-term current use of insulin ([facility]) Inject 1.5 mg under the skin 1 (one) time per week. 12 each 3 03/28/2023 Active Completed/Discontinued Medications Medication Drug Class(es) Dates Sig (Normalized) Sig (Original) acetaminophen 32 mg/ml oral solution (2 sources) Start: 04-11-2023 End: 04-13-2023 take 650 mg by mouth every six hours, then take 4000 mg by mouth every twenty-four hours 650 mg, Oral, EVERY 6 HOURS, First dose on Sun04/11/23 at 1200, Until Discontinued Maximum dose of acetaminophen is 4000 mg from all sources in 24 hours. Post-op/Post-Proc Problems Active Problems Problem Classification Problem Date Documented Date Episodic/Chronic Anxiety disorders (12 sources) Anxiety; Translations: [Anxiety state, unspecified] Onset: 10-26-2022 10-26-2022 Chronic Diabetes mellitus with complications (14 sources) Hyperglycemia due to type 2 diabetes mellitus; Translations: [Type 2 diabetes mellitus with hyperglycemia] Onset: 12-05-2022 12-05-2022 Chronic Diabetes 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 (20 sources) Diabetes mellitus; Translations: [Diabetes mellitus without mention of complication, type II or unspecified type, not stated as uncontrolled] Onset: 09-21-2022 Chronic Disorders of lipid metabolism (15 sources) Hyperlipidemia; Translations: [Other and unspecified hyperlipidemia] Onset: 10-26-2022 10-26-2022 Chronic Esophageal disorders (7 sources) Gastroesophageal reflux disease; Translations: [Gastro-esophageal reflux disease without esophagitis] Onset: 09-21-2022 Chronic Headache; including migraine (2 sources) Headache; including migraine; Translations: [Headache, unspecified] Onset: 12-05-2022 Hypertension with complications and secondary hypertension (6 sources) Hypertensive urgency ; Translations: [Hypertensive urgency] Onset: 04-11-2023 04-11-2023 Chronic Miscellaneous mental health disorders (6 sources) Eating disorder; Translations: [Eating disorder, unspecified] Onset: 09-21-2022 Chronic Mood disorders (12 sources) Depressive disorder; Translations: [Depressive disorder, not elsewhere classified] Onset: 10-26-2022 10-26-2022 Chronic Non-Hodgkin`s lymphoma (12 sources) Malignant lymphoma (clinical); Translations: [Other malignant lymphomas, unspecified site, extranodal and solid organ sites] Onset: 10-26-2022 10-26-2022 Chronic Other connective tissue disease (9 sources) Other enthesopathy of right foot; Translations: [Tendinitis of ankle] Episodic Other hereditary and degenerative nervous system conditions (2 sources) Restless legs; Translations: [Restless Legs] Onset: 03-22-2023 Chronic Other nutritional; endocrine; and metabolic disorders (15 sources) Body mass index 40+ - severely obese; Translations: [Morbid obesity] Chronic Other nutritional; endocrine; and metabolic disorders (20 sources) Morbid obesity; Translations: [Morbid (severe) obesity due to excess calories] Onset: 08-24-2022 08-24-2022 Chronic Other nutritional; endocrine; and metabolic disorders (6 sources) Morbid (severe) obesity due to excess calories; Translations: [Morbid (severe) obesity due to excess calories] Onset: 08-24-2022 Chronic Other nutritional; endocrine; and metabolic disorders (2 sources) Body mass index (BMI) 45.0-49.9, adult; Translations: [Body mass index (BMI) 45.0-49.9, adult] Onset: 12-05-2022 Chronic Other nutritional; endocrine; and metabolic disorders (2 sources) Body mass index (BMI) 50.0-59.9, adult; Translations: [Body mass index (BMI) 50.0-59.9, adult] Onset: 09-21-2022 Chronic Other nutritional; endocrine; and metabolic disorders (1 source) Excessive weight loss; Translations: [Abnormal weight loss] 06-28-2023 Episodic Other nutritional; endocrine; and metabolic disorders (1 source) Weight loss; Translations: [Abnormal weight loss] 07-17-2023 Episodic Other screening for suspected conditions (not mental disorders or infectious disease) (20 sources) Patient encounter status; Translations: [Breast screening, unspecified] Episodic Other upper respiratory disease (12 sources) Allergic rhinitis; Translations: [Allergic rhinitis, cause unspecified] Onset: 10-26-2022 10-26-2022 Chronic Other upper respiratory disease (12 sources) Seasonal allergy; Translations: [Allergic rhinitis, cause unspecified] Onset: 10-26-2022 10-26-2022 Chronic Residual codes; unclassified (5 sources) Hypersomnia; Translations: [Hypersomnia, unspecified] Chronic Residual codes; unclassified (1 source) Sleep apnea; Translations: [Sleep apnea, unspecified] Chronic Residual codes; unclassified (11 sources) Obstructive sleep apnea syndrome; Translations: [Obstructive sleep apnea (adult) (pediatric)] Onset: 04-11-2023 02-23-2023 Chronic Residual codes; unclassified (3 sources) Hypoxia; Translations: [Idiopathic sleep related nonobstructive alveolar hypoventilation] 02-23-2023 Chronic Residual codes; unclassified (2 sources) Obstructive sleep apnea (adult) (pediatric); Translations: [Obstructive sleep apnea (adult) (pediatric)] Onset: 02-23-2023 Chronic Residual codes; unclassified (2 sources) Idiopathic sleep related nonobstructive alveolar hypoventilation; Translations: [Idiopathic sleep related nonobstructive alveolar hypoventilation] Onset: 02-23-2023 Chronic Residual codes; unclassified (4 sources) Sleep apnea, unspecified; Translations: [Sleep apnea, unspecified] Onset: 11-07-2022 Chronic Residual codes; unclassified (2 sources) Hypersomnia, unspecified; Translations: [Hypersomnia, unspecified] Onset: 09-21-2022 Chronic Residual codes; unclassified (9 sources) History of sleeve gastrectomy; Translations: [Acquired absence of stomach [part of]] Onset: 04-11-2023 04-12-2023 Episodic Residual codes; unclassified (2 sources) Acquired absence of stomach [part of]; Translations: [Acquired absence of stomach (part of)] Onset: 04-11-2023 Episodic Rheumatoid arthritis and related disease (16 sources) Rheumatoid arthritis; Translations: [Rheumatoid arthritis] Onset: 10-26-2022 12-26-2022 Chronic Spondylosis; intervertebral disc disorders; other back problems (12 sources) Displacement of lumbar intervertebral disc without myelopathy; Translations: [Displacement of lumbar intervertebral disc without myelopathy] Onset: 10-26-2022 10-26-2022 Chronic Unclassified (2 sources) New Patient; Translations: [New Patient] Onset: 09-21-2022 Past or Other Problems Problem Classification Problem Date Documented Date Episodic/Chronic Administrative/social admission (10 sources) Follow-up status; Translations: [Person consulting for explanation of examination or test findings] Onset: 12-05-2022 02-23-2023 Episodic Fluid and electrolyte disorders (6 sources) Metabolic acidosis; Translations: [Metabolic acidosis] Onset: 04-11-2023 04-11-2023 Episodic Fracture of upper limb (12 sources) Closed fracture of metacarpal bone; Translations: [Closed fracture of metacarpal bone(s), site unspecified] Onset: 10-26-2022 Resolved: 10-26-2022 10-26-2022 Episodic Lymphadenitis (15 sources) Cervical lymphadenopathy; Translations: [Enlargement of lymph nodes] Onset: 12-13-2006 Resolved: 10-26-2022 10-26-2022 Episodic Other connective tissue disease (12 sources) Plantar fasciitis; Translations: [Plantar fascial fibromatosis] Onset: 10-26-2022 10-26-2022 Episodic Other connective tissue disease (12 sources) Fibromyalgia; Translations: [Myalgia and myositis, unspecified] Onset: 10-26-2022 10-26-2022 Episodic Other connective tissue disease (3 sources) Tendonitis of right ankle; Translations: [Other enthesopathy of right foot and ankle] Onset: 10-26-2022 Resolved: 10-26-2022 10-26-2022 Episodic Other connective tissue disease (6 sources) H/O: rheumatoid arthritis; Translations: [Personal history of other diseases of the musculoskeletal system and connective tissue] Onset: 04-11-2023 04-11-2023 Episodic Other lower respiratory disease (2 sources) Hypoxia; Translations: [Hypoxia] Onset: 03-22-2023 Episodic Other lower respiratory disease (2 sources) Snoring; Translations: [Snoring] Onset: 12-05-2022 Episodic Other nutritional; endocrine; and metabolic disorders (4 sources) Overweight; Translations: [Overweight] Onset: 02-23-2023 02-23-2023 Episodic Other nutritional; endocrine; and metabolic disorders (1 source) Overweight; Translations: [Overweight] Onset: 02-23-2023 Episodic Other upper respiratory infections (12 sources) Acute upper respiratory infection; Translations: [Acute upper respiratory infections of unspecified site] Onset: 10-26-2022 Resolved: 10-26-2022 10-26-2022 Episodic Residual codes; unclassified (12 sources) Insomnia; Translations: [Insomnia, unspecified] Onset: 10-26-2022 10-26-2022 Episodic Residual codes; unclassified (2 sources) Insomnia, unspecified; Translations: [Insomnia, unspecified] Onset: 12-05-2022 Episodic Spondylosis; intervertebral disc disorders; other back problems (12 sources) Radiculopathy, lumbar region; Translations: [Lumbar radiculitis] Onset: 10-26-2022 10-26-2022 Episodic Unclassified (2 sources) Patient encounter status; Translations: [Screen for colon cancer] Viral infection (20 sources) Infectious mononucleosis; Translations: [Infectious mononucleosis] Onset: 10-26-2022 Resolved: 10-26-2022 10-26-2022 Episodic Results Test Name Value Interpretation Reference Range Facil ity Vital Signs Date Time Vital Sign Value Performing Clinician Facility 07-17-2023 08:22-0500 Body height 160 cm [facility]enas [facility] 07-17-2023 08:22-0500 Body mass index (BMI) [Ratio] 44.18 kg/m2 Carly Barcenas DO Work Phone: [employer] [facility] 07-17-2023 08:22-0500 Body weight 113.13 kg Carly Barcenas DO Work Phone: [employer] [facility] 07-17-2023 08:22-0500 Diastolic blood pressure 79 mm[Hg] Carly Narinder [place] Work Phone: [employer] [facility] 07-17-2023 08:22-0500 Heart rate 58 /min Carly Narinder DO Work Phone: [employer] [facility] 07-17-2023 08:22-0500 SaO2% (BldA) [Mass fraction] 98 % Carly Narinder DO Work Phone: [employer] [facility] 07-17-2023 08:22-0500 Systolic blood pressure 117 mm[Hg] Carly Barcenas DO [facility] 07-10-2023 08:28-0500 Body height 160 cm April Brooks MD Work Phone: [facility] 07-10-2023 08:28-0500 Body mass index (BMI) [Ratio] 43.63 kg/m2 April Brooks MD Work Phone: [facility] 07-10-2023 08:28-0500 Body weight 111.72 kg April Brooks MD Work Phone: [facility] 07-10-2023 08:28-0500 Diastolic blood pressure 80 mm[Hg] April Brooks MD Work Phone: [facility] 07-10-2023 08:28-0500 Systolic blood pressure 132 mm[Hg] April Brooks MD Work Phone: [facility] 06-28-2023 08:44-0500 Body height 160 cm Rosanne Tahir BIAZZI NITRATOR OPERATOR[employer] Work Phone: [facility] 06-28-2023 08:44-0500 Body mass index (BMI) [Ratio] 44.82 kg/m2 Rosanne Tahir BIAZZI NITRATOR OPERATOR-[employer]GET [employer]ER Work Phone: [facility] 06-28-2023 08:44-0500 Body weight 114.76 kg Rosanne Tahir BIAZZI NITRATOR OPERATOR-[employer]UDGET [employer]ER Work Phone: [facility] 06-28-2023 08:44-0500 Diastolic blood pressure 80 mm[Hg] Rosanne Tahir BIAZZI NITRATOR OPERATOR-[employer]GET [employer] Work Phone: [facility] 06-28-2023 08:44-0500 Heart rate 65 /min Rosanne Tahir BIAZZI NITRATOR OPERATOR-BUDGET [employer]ER Work Phone: [facility] 06-28-2023 08:44-0500 Respiratory rate 17 /min Rosanne Tahir BIAZZI NITRATOR OPERATOR-BUDGET CONTROLLER Work Phone: [facility] 06-28-2023 08:44-0500 SaO2% (BldA) [Mass fraction] 98 % Rosanne Tahir BIAZZI NITRATOR OPERATOR-BUDGET [employer]OLLER Work Phone: [facility] 06-28-2023 08:44-0500 Systolic blood pressure 136 mm[Hg] Rosanne Tahir BIAZZI NITRATOR OPERATOR-[employer]UDGET [employer]LLER Work Phone: [facility] 06-11-2023 07:53-0500 Body mass index (BMI) [Ratio] 45.7 kg/m2 Jan Hernandez RD Work Phone: [employer] 06-11-2023 07:53-0500 Body weight 117.[address] Work Phone: [employer] 05-10-2023 08:23-0400 Body height 160 cm Carly Barcenas DO Work Phone: [employer] 05-10-2023 08:23-0400 Body mass index (BMI) [Ratio] 48.18 kg/m2 Carly Narinder DO Work Phone: [employer] 05-10-2023 08:23-0400 Body weight 123.38 kg Carly Barcenas DO Work Phone: [employer] 05-10-2023 08:23-0400 Diastolic blood pressure 85 mm[Hg] Carly Barcenas DO Work Phone: [employer] 05-10-2023 08:23-0400 Heart rate 65 /min Carly Barcenas DO Work Phone: [employer] 05-10-2023 08:23-0400 Systolic blood pressure 177 mm[Hg] Carly Barcenas DO Work Phone: [employer] 04-13-2023 07:40-0400 Body temperature 97.5 [degF] Carly Barcenas DO Work Phone: [employer] 04-13-2023 07:40-0400 Diastolic blood pressure 67 mm[Hg] Carly Barcenas DO Work Phone: [employer] 04-13-2023 07:40-0400 Heart rate 57 /min Carly Barcenas DO Work Phone: [employer] 04-13-2023 07:40-0400 Respiratory rate 16 /min Carly Barcenas DO Work Phone: [employer] 04-13-2023 07:40-0400 SaO2% (BldA) [Mass fraction] 93 % Carly Barcenas DO Work Phone: [employer] 04-13-2023 07:40-0400 Systolic blood pressure 146 mm[Hg] Carly Barcenas DO Work Phone: [facility] 04-13-2023 03:54-0400 Body mass index (BMI) [Ratio] 52.08 kg/m2 Carly Barcenas DO Work Phone: [facility] 04-13-2023 03:54-0400 Body weight 133.36 kg Carly Barcenas DO Work Phone: [facility] 04-12-2023 11:23-0400 Body height 160 cm Calry Barcenas DO Work Phone: [facility] 03-28-2023 07:55-0400 Body height 160 cm April Brooks MD Work Phone: [facility] 03-28-2023 07:55-0400 Body mass index (BMI) [Ratio] 52.43 kg/m2 April Brooks MD Work Phone: [facility] 03-28-2023 07:55-0400 Body weight 134.26 kg April Brooks MD Work Phone: [facility] 03-28-2023 07:55-0400 Diastolic blood pressure 80 mm[Hg] April Brooks MD Work Phone: [facility] 03-28-2023 07:55-0400 Heart rate 65 /min April Brooks MD Work Phone: [facility] 03-28-2023 07:55-0400 SaO2% (BldA) [Mass fraction] 98 % April Brooks MD Work Phone: [facility] 03-28-2023 07:55-0400 Systolic blood pressure 148 mm[Hg] April Brooks MD Work Phone: [facility] 03-22-2023 11:39-0400 Body height 160 cm Rosanne Tahir BIAZZI NITRATOR OPERATOR-[employer]UDGET [employer]OLLER Work Phone: [facility] 03-22-2023 11:39-0400 Body mass index (BMI) [Ratio] 53.14 kg/m2 Rosanne Tahir BIAZZI NITRATOR OPERATOR-BUDGET CONTROLLER Work Phone: [employer] [facility] 03-22-2023 11:39-0400 Body weight 136.08 kg Rosanne Tahir BIAZZI NITRATOR OPERATOR-BUDGET CONTROLLER Work Phone: [employer] [facility] 03-22-2023 11:39-0400 Diastolic blood pressure 70 mm[Hg] Rosanne Tahir BIAZZI NITRATOR OPERATOR-BUDGET CONTROLLER Work Phone: [facility] [employer] [facility] 03-22-2023 11:39-0400 Heart rate 79 /min Rosanne Tahir BIAZZI NITRATOR OPERATOR-BUDGET CONTROLLER Work Phone: [employer] [facility] 03-22-2023 11:39-0400 Respiratory rate 14 /min Rosanne Tahir BIAZZI NITRATOR OPERATOR-[employer]GET [employer]ER Work Phone: [facility] 03-22-2023 11:39-0400 SaO2% (BldA) [Mass fraction] 97 % Rosanne Tahir BIAZZI NITRATOR OPERATOR-[employer]GET [employer]OLLER Work Phone: [facility] [employer] [facility] 03-22-2023 11:39-0400 Systolic blood pressure 128 mm[Hg] Rosanne Tahir BIAZZI NITRATOR OPERATOR-BUDGET [employer]OLLER Work Phone: [employer] [facility] 02-23-2023 15:47-0400 Body height 160 cm Rosanne Tahir BIAZZI NITRATOR OPERATOR-BUDGET [employer]OLLER Work Phone: [employer] [facility] 02-23-2023 15:47-0400 Body mass index (BMI) [Ratio] 52.26 kg/m2 Rosanne Tahir BIAZZI NITRATOR OPERATOR-BUDGET CONTROLLER Work Phone: [employer] [facility] 02-23-2023 15:47-0400 Body weight 133.81 kg Rosanne Tahir BIAZZI NITRATOR OPERATOR-BUDGET [employer]OLLER Work Phone: [employer] [facility] 02-23-2023 15:47-0400 Diastolic blood pressure 86 mm[Hg] Rosanne Tahir BIAZZI NITRATOR OPERATOR-BUDGET [employer]OLLER Work Phone: [employer] [facility] 02-23-2023 15:47-0400 Heart rate 77 /min Rosanne Tahir BIAZZI NITRATOR OPERATOR-BUDGET [employer]OLLER Work Phone: [facility] 02-23-2023 15:47-0400 SaO2% (BldA) [Mass fraction] 91 % Rosanne Haro BIAZZI NITRATOR OPERATOR-BUDGET CONTROLLER Work Phone: [facility] 02-23-2023 15:47-0400 Systolic blood pressure 140 mm[Hg] Rosanne Haro BIAZZI NITRATOR OPERATOR-BUDGET CONTROLLER Work Phone: [facility] 12-26-2022 09:28-0400 Body height 160 cm April Brooks MD Work Phone: [facility] 12-26-2022 09:28-0400 Body mass index (BMI) [Ratio] 51.41 kg/m2 April Brooks MD Work Phone: [facility] 12-26-2022 09:28-0400 Body weight 131.63 kg April Brooks MD Work Phone: [facility] 12-26-2022 09:28-0400 Diastolic blood pressure 80 mm[Hg] April Brooks MD Work Phone: [facility] 12-26-2022 09:28-0400 Heart rate 69 /min April Brooks MD Work Phone: [facility] 12-26-2022 09:28-0400 SaO2% (BldA) [Mass fraction] 92 % April Brooks MD Work Phone: [facility] 12-26-2022 09:28-0400 Systolic blood pressure 130 mm[Hg] April Brooks MD Work Phone: [facility] 12-05-2022 11:06-0400 Body mass index (BMI) [Ratio] 47.86 kg/m2 Jan Hernandez RD Work Phone: [facility] 12-05-2022 11:06-0400 Body weight 122.[address] Work Phone: [facility] 10-24-2022 10:06-0400 Body mass index (BMI) [Ratio] 49.95 kg/m2 Jan Ratliffoff RD Work Phone: [facility] 10-24-2022 10:06-0400 Body weight 127.[address] Work Phone: [facility] 10-03-2022 11:04-0500 Body mass index (BMI) [Ratio] 48.89 kg/m2 Jan Leisaoff RD Work Phone: [facility] 10-03-2022 11:04-0500 Body weight 125.[address] Work Phone: [facility] 09-22-2022 08:11-0500 Body height 160.02 cm April Brooks Work Phone: [employer] Work Phone: 09-22-2022 08:11-0500 Body mass index (BMI) [Ratio] 49.87 kg/m2 April Brooks Work Phone: [employer] [facility] Work Phone: 09-22-2022 08:11-0500 Body surface area Derived from formula 2.24 m2 April Brooks Work Phone: [employer] [facility] Work Phone: 09-22-2022 08:11-0500 Body weight 127.69 kg April Brooks Work Phone: [facility] Work Phone: 09-22-2022 08:11-0500 Diastolic blood pressure 94 mm[Hg] April Brooks Work Phone: [facility] Work Phone: 09-22-2022 08:11-0500 Heart rate 58 /min April Brooks Work Phone: [facility] Work Phone: 09-22-2022 08:11-0500 SaO2% (BldA) [Mass fraction] 98 % April Brooks Work Phone: [facility] Work Phone: 09-22-2022 08:11-0500 Systolic blood pressure 172 mm[Hg] April Brooks Work Phone: [facility] Work Phone: 09-12-2022 10:54-0500 Body mass index (BMI) [Ratio] 49.42 kg/m2 Jan Mary RD Work Phone: [employer] 09-12-2022 10:54-0500 Body weight 126.[address] Work Phone: [employer] 09-08-2022 09:06-0500 Diastolic blood pressure 78 mm[Hg] Carly Narinder MADISON Work Phone: [employer] 09-08-2022 09:06-0500 Heart rate 68 /min Carly Barcenas DO Work Phone: [employer] 09-08-2022 09:06-0500 Respiratory rate 17 /min Carly Narinder MADISON Work Phone: [employer] 09-08-2022 09:06-0500 SaO2% (BldA) [Mass fraction] 99 % Carly Narinder DO Work Phone: [employer] 09-08-2022 09:06-0500 Systolic blood pressure 137 mm[Hg] Carly Barcenas Work Phone: [employer] 09-08-2022 08:56-0500 Body temperature 97.3 [degF] Carly Barcenas DO Work Phone: [employer] 09-08-2022 07:43-0500 Body height 160 cm Carly Barcenas Work Phone: [employer] 09-08-2022 07:43-0500 Body mass index (BMI) [Ratio] 49.95 kg/m2 Carly Barcenas Work Phone: [employer] 09-08-2022 07:43-0500 Body weight 127.91 kg Carly Barcenas DO Work Phone: [employer] 08-24-2022 13:07-0500 Body mass index (BMI) [Ratio] 50.06 kg/m2 Jan Hernandez RD Work Phone: [employer] 08-24-2022 13:07-0500 Body weight 128.[address] Work Phone: [employer] 08-24-2022 08:48-0500 Body height 160 cm Carly Barcenas DO Work Phone: [employer] 08-24-2022 08:48-0500 Body mass index (BMI) [Ratio] 50.06 kg/m2 Carly Barcenas DO Work Phone: [employer] 08-24-2022 08:48-0500 Body weight 128.19 kg Carly Narinder MADISON Work Phone: [employer] 08-24-2022 08:48-0500 Diastolic blood pressure 88 mm[Hg] Carly Barcenas DO Work Phone: [employer] 08-24-2022 08:48-0500 Heart rate 94 /min Carly Barcenas DO Work Phone: [employer] 08-24-2022 08:48-0500 Respiratory rate 17 /min Carly Barcenas DO Work Phone: [employer] 08-24-2022 08:48-0500 SaO2% (BldA) [Mass fraction] 95 % Carly Barcenas DO Work Phone: [employer] 08-24-2022 08:48-0500 Systolic blood pressure 130 mm[Hg] Carly Narinder MADISON Work Phone: [employer] 06-27-2022 08:05-0500 Body height 160.02 cm April Brooks Work Phone: [facility] Work Phone: 06-27-2022 08:05-0500 Body mass index (BMI) [Ratio] 51.58 kg/m2 April Brooks Work Phone: [facility] Work Phone: 06-27-2022 08:05-0500 Body surface area Derived from formula 2.27 m2 April Brooks Work Phone: [facility] [facility] Work Phone: 06-27-2022 08:05-0500 Body weight 132.08 kg April Brooks Work Phone: [facility] [facility] [facility] Work Phone: 06-27-2022 08:05-0500 Diastolic blood pressure 86 mm[Hg] April Brooks Work Phone: [facility] Work Phone: 06-27-2022 08:05-0500 Heart rate 66 /min April Brooks Work Phone: [facility] [facility] [facility] Work Phone: 06-27-2022 08:05-0500 SaO2% (BldA) [Mass fraction] 98 % April Brooks Work Phone: [facility] Work Phone: 06-27-2022 08:05-0500 Systolic blood pressure 140 mm[Hg] April Brooks Work Phone: [facility] [facility] [facility] Work Phone: 03-14-2022 08:14-0400 Body height 160.02 cm April Brooks Work Phone: [facility] Work Phone: 03-14-2022 08:14-0400 Body mass index (BMI) [Ratio] 53.03 kg/m2 April Brooks Work Phone: [facility] Work Phone: 03-14-2022 08:14-0400 Body surface area Derived from formula 2.3 m2 April Brooks Work Phone: [facility] Work Phone: 03-14-2022 08:14-0400 Body weight 135.8 kg April Brooks Work Phone: [facility] Work Phone: 03-14-2022 08:14-0400 Diastolic blood pressure 78 mm[Hg] April Lambcel Work Phone: [facility] Work Phone: 03-14-2022 08:14-0400 Heart rate 58 /min Aprli Brooks Work Phone: [facility] Work Phone: 03-14-2022 08:14-0400 SaO2% (BldA) [Mass fraction] 98 % April Brooks Work Phone: [facility] Work Phone: 03-14-2022 08:14-0400 Systolic blood pressure 134 mm[Hg] April Lambcel Work Phone: [facility] Work Phone: 08-16-2021 08:23-0500 Diastolic blood pressure 76 mm[Hg] April Lambcel Work Phone: [facility] Work Phone: 08-16-2021 08:23-0500 Systolic blood pressure 132 mm[Hg] April Lambcel Work Phone: [facility] Work Phone: 08-16-2021 08:05-0500 Body height 160.02 cm April Brooks Work Phone: [facility] Work Phone: 08-16-2021 08:05-0500 Body mass index (BMI) [Ratio] 51.76 kg/m2 April Lambcel Work Phone: [facility] Work Phone: 08-16-2021 08:05-0500 Body surface area Derived from formula 2.27 m2 April Brooks Work Phone: [facility] Work Phone: 08-16-2021 08:05-0500 Body temperature 97.3 [degF] April Brooks Work Phone: [employer] Work Phone: 08-16-2021 08:05-0500 Body weight 132.54 kg April Brooks Work Phone: [facility] Work Phone: 08-16-2021 08:05-0500 Diastolic blood pressure 86 mm[Hg] April Brooks Work Phone: [facility] Work Phone: 08-16-2021 08:05-0500 Heart rate 71 /min April Brooks Work Phone: [facility] Work Phone: 08-16-2021 08:05-0500 SaO2% (BldA) [Mass fraction] 98 % April Brooks Work Phone: [facility] Work Phone: 08-16-2021 08:05-0500 Systolic blood pressure 142 mm[Hg] April Brooks Work Phone: [facility] Work Phone: Encounters Encounter Date Encounter Type Care Provider Facility Start: 07-17-2023 ambulatory APRIL BROOKS [facility] Start: 07-17-2023 End: 07-17-2023 Office outpatient visit 15 minutes Carly Barcenas DO Work Phone: [facility] Procedures Date Procedure Procedure Detail Performing Clinician Start: 07-10-2023 FOLLOW UP IN FAMILY MEDICINE APRIL BROOKS Start: 04-13-2023 Gluc bld gluc mntr d ev cleared fda spec home use Carly Barcenas DO Work Phone: Start: 04-13-2023 Basic metabolic pane l calcium total Carly Barcenas DO Work Phone: Start: 04-13-2023 Complete blood count with white cell differential, automated Carly Barcenas DO Work Phone: Start: 04-12-2023 Gluc bld gluc mntr d ev cleared fda spec home use Carly Barcenas DO Work Phone: Start: 04-12-2023 Gluc bld gluc mntr d ev cleared fda spec home use Carly Barcenas DO Work Phone: Start: 04-12-2023 Gluc bld gluc mntr d ev cleared fda spec home use Carly Barcenas DO Work Phone: Start: 04-12-2023 Blood count complete automated Carly Barcenas DO Work Phone: Start: 04-12-2023 Gluc bld gluc mntr d ev cleared fda spec home use Carly Barcenas DO Work Phone: Start: 04-12-2023 End: 04-12-2023 Basic metabolic panel calcium total Carly Barcenas DO Work Phone: Start: 04-11-2023 Gluc bld gluc mntr d ev cleared fda spec home use Carly Barcenas DO Work Phone: Start: 04-11-2023 Gluc bld gluc mntr d ev cleared fda spec home use Carly Barcenas DO Work Phone: Start: 04-11-2023 Basic metabolic pane l calcium total Caryl Barcenas DO Work Phone: Start: 04-11-2023 SURGICAL PATHOLOGY REQUEST Carly Barcenas DO Work Phone: Start: 04-11-2023 End: 04-11-2023 Laps gstrc rstrictiv px longitudinal gastrectomy Carly Barcenas DO Work Phone: Start: 04-11-2023 Basic metabolic pane l calcium total Carly Barcenas DO Work Phone: Start: 04-11-2023 Blood group typing, RH phenotyping Binu Sarah MD Work Phone: Start: 04-03-2023 Mammography April Swift MD Work Phone: Start: 03-28-2023 FOLLOW UP IN FAMILY MEDICINE APRIL BROOKS Start: 03-22-2023 Follow-up visit Follow-up ROSANNE HARO Start: 09-21-2022 Ecg routine ecg w/le ast 12 lds trcg only w/o i&r Carly Barcenas DO Work Phone: Start: 09-21-2022 Radiologic exam ches t 2 views Carly Barcenas DO Work Phone: Start: 09-21-2022 Lipid 1996 panel - S vickie or Plasma Carly Barcenas DO Work Phone: Start: 09-08-2022 DIAGNOSTIC UPPER ENDOSCOPY Carly Barcenas DO Work Phone: Start: 11-21-2021 Mammography April Swift MD Work Phone: Start: 02-11-2020 Colonoscopy April Swift MD Work Phone: Start: 02-11-2020 Colonoscopy April Brooks Work Phone: Arthroscopy of ankle April Lambcel Dilation and curettage Dharmesh el Stencel Osteotomy April Stencel Repair of meniscus April Thompson tencel Tonsillectomy and adenoidectomy April Stencel Plan of Treatment Date Care Activity Detail Author Start: 02-10-2030 Screening for malign ant neoplasm of colon [facility] Start: 09-21-2027 Lipid panel LIPID SCREENING [employer] Start: 04-03-2024 Screening for malign ant neoplasm of breast Mammogram [facility] Start: 10-25-2023 End: 10-25-2023 Patient encounter procedure 10/25/2023 8:30 AM EDT Office Visit [facility] [address] [place] [address] Carly Barcenas, DO [address] [place] [address] [facility] Start: 10-11-2023 End: 10-11-2023 Patient encounter procedure 10/11/2023 8:20 AM EDT Office Visit [facility] [address] [place] [address] April Brooks MD [address] [place] [address] [facility] Start: 10-02-2023 End: 10-02-2023 Patient encounter procedure 10/02/2023 8:00 AM EST Appointment [facility] [address] [place] [phone] Jan Hernadnez, RD [address] [place] [address] [facility] Start: 09-27-2023 Hemoglobin A1c measurement HBA1C TEST [facility] Start: 09-21-2023 Lipid panel LIPIDS [facility] Start: 08-09-2023 End: 08-09-2023 Patient encounter procedure 08/09/2023 8:30 AM EST Office Visit [id number] [place] [address] Carly Barcenas, DO [address] [place] [address] [facility] Start: 07-17-2023 End: 07-17-2024 VITAMIN A [facility] Immunizations Immunization Date Immunization Notes Care Provider [facility] 09-17-2021 influenza, injectabl e, quadrivalent, preservative free April Brooks Work Phone: [facility] 09-17-2021 influenza virus vaccine, unspecified formulation Carly Barcenas DO Work Phone: [facility] 05-22-2021 Pfizer-BioNTech COVID-19 Vacc 30 MCG/0.3ML Intramuscular Suspension April Brooks Work Phone: [facility] Work Phone: 11-07-2020 Pfizer-BioNTech COVID-19 Vacc 30 MCG/0.3ML Intramuscular Suspension April Cade Stencel Work Phone: [facility] Work Phone: 10-16-2020 Pfizer-BioNTech COVID-19 Vacc 30 MCG/0.3ML Intramuscular Suspension April D Stencel Work Phone: [facility] Work Phone: Payers Date Payer Category Payer Private Health Insurance 2010 Private Health Insurance [id number] 1965 Unknown [id number] [id number] 1965 Unknown [id number] 2.840.1.065991.3.579.2. 1964 Unknown [id number] 2.840.1.323917.3.579.2. 1964 Unknown [id number] 2.840.1.916508.3.579.2.71 1964 Unknown [id number] 2.840.1.596283.3.579.2.356 1964 Unknown [id number] 2.840.1.981726.3.579.2.356 1964 Unknown [id number] 2.16840.1.946262.3.579.2.356 1964 Unknown [id number] 2.16.840.1.298324.3.579.2.98 1964 Unknown [id number] 2.16840.1.876794.3.579.2.98 1964 Unknown [id number] 2.16840.1.395023.3.579.2.98 1964 Unknown [id number] 2.16.840.1.896888.3.579.2.3 1964 Unknown [id number] 2.16.840.1.315377.3.579.2. 1964 Unknown [id number] 2.16.840.1.733275.3.579.2. 1964 Unknown [id number] 2.16.840.1.853303.3.579.2. 1964 Unknown [id number] 2.16.840.1.675163.3.579.2. 1964 Unknown [id number] 2.16.840.1.030548.3.579.2. 1964 Unknown [id number] 2.16.840.1.997674.3.579.2 1964 Unknown [id number] 2.16840.1.122942.3.579.2. 1964 Unknown [id number] 2.16.840.1.499396.3.579.2. 1964 Unknown [id number] 2.16.840.1.269439.3.579.2 1964 Unknown [id number] 2.16.840.1.071499.3.579.2. 1964 Unknown [id number] 2.16.840.1.494512.3.579.2. 1964 Unknown [id number] 2.16.840.1.622449.3.579.2. 1964 Unknown [id number] 2.16.840.1.033405.3.579.2. 1964 Unknown [id number] 2.16.840.1.516900.3.579.2. 1964 Unknown [id number] 2.16.840.1.365800.3.579.2 1964 Unknown [id number] 2.16.840.1.646281.3.579.2.983 1964 Unknown [id number] 2.16.840.1.806664.3.579.2.983 1964 Unknown [id number] 2.16.840.1.436724.3.579.2.983 1964 Unknown [id number] 2.16.840.1.300925.3.579.2.983 1964 Unknown [id number] 2.16.840.1.514917.3.579.2.1244 1964 Unknown [id number] 2.16.840.1.313983.3.579.2.4 1964 Unknown [id number] 2.16.840.1.716648.3.579.2.1244 1964 Unknown [id number] 2.16.840.1.743858.3.579.2.983 1964 Unknown [id number] 2.16.840.1.402569.3.579.2.983 1964 Unknown [id number] 2.16.840.1.715049.3.579.2.983 1964 Unknown [id number] 2.16.840.1.939862.3.579.2.983 Unknown [employer] Social History Date Type Detail Facility Assertion Tobacco smoking consumption unknown (finding) [facility] Work Phone: Start: 12-26-2022 End: 06-28-2023 Consumes alcohol occasionally Consumes alcohol occasionally [facility] Work Phone: Start: 08-24-2022 End: 12-26-2022 Tobacco smoking status NHIS Never smoked tobacco [facility] Start: 08-24-2022 End: 12-26-2022 Tobacco use and exposure Smokeless tobacco non-user [facility] Start: 08-24-2022 End: 07-17-2023 Alcohol intake Current drinker of alcohol (finding) [facility] Start: 08-24-2022 Alcohol Comment rarely [facility] Start: 1965 Sex Assigned At Female [employer] Otto cisneros Start: 12-26-2022 End: 06-28-2023 Tobacco use panel [facility] Work Phone: Start: 1965 Sex Assigned At Not on file [facility] Work Phone: Start: 12-16-2022 End: 07-10-2023 Exposure to SARS-CoV-2 (event) Not sure [facility] Medical Equipment Procedure Code Equipment Code Equipment Origin al Text Equipment Identifier Dates twice a day. [id number] Start: 03-14-2022 End: 07-10-2023 twice a day. [id number] Start: 07-10-2023 Functional Status Date Assessment Result Facility NEGATED: Highlighted row Functional performance Functional status health issues are not documented Disease [facility] Work Phone: Mental Status Date Assessment Result Facility NEGATED: Highlighted row Cognitive function [Interpretation] Cognitive status health issues are not documented Disease [facility] Work Phone: Clinical Notes 08-09-2021 to 07-17-2023 Carly Barcenas DO - 07/17/2023 8:45 AM Gene Brooks MD - 07/10/2023 8:20 AM Norris Phan - 06/28/2023 8:45 AM RICARDO Hayes - 06/28/2023 8:45 AM EST Note Date & Type Note Facility 07-17-2023 History of Present illness Narrative BARIATRIC CLINIC FOLLOW UP VISIT HPI Anthony Alejandra Silverio is seen today for a follow up visit. she is doing well and reports no problems at this time. she does report some nausea and vomiting at times. She denies abdominal pain. she is exercising and taking her vitamins. Current Outpatient Medications Medication Sig Dispense Refill Atorvastatin 40 MG tablet Take by mouth daily. PM DULoxetine HCl [address] Particles capsule daily. Etanercept 50 MG/ML Solution Prefilled Syringe injection Inject 1 mL as directed once a week. Folic acid 1 MG tablet Take by mouth 2 times daily. metFORMIN 500 MG tablet Take by mouth 2 times daily. Misc. Devices Misc by Unknown route. APAP 5-15 cm h2o set up [facility]03[facility] [employer] omeprazole [address] capsule Take 1 capsule by mouth daily. 30 capsule 2 Ondansetron 4 MG Tab Dispersible tablet Take 1 tablet by mouth every 8 hours as needed. 30 tablet 2 traZODone 100 MG tablet 1 tablet every evening at 6 PM. oxyCODONE 5 MG/5ML Solution oral solution Take 5 mL by mouth every 6 hours as needed for up to 6 days. (Patient not taking: Reported on 03/27/2023) 120 mL 0 No current facility-administered medications for this visit. PHYSICAL EXAM: General Appearance: in no apparent distress and well developed and well nourished. Abdomen: soft, non-tender. Bowel sounds normal. No masses, no organomegaly Extremities: extremities normal, atraumatic, no cyanosis or edema DATA REVIEW: Lab Results Component Value Date WBC 7.5 04/13/2023 HGB 10.8 (L) 04/13/2023 HCT 32.6 (L) 04/13/2023 MCV 89.7 04/13/2023 PLATELET 171 04/13/2023 Lab Results Component Value Date SODIUM 137 04/13/2023 POTASSIUM 3.6 04/13/2023 CO2 24 04/13/2023 CALCIUM 7.8 (L) 04/13/2023 BUN 22 (H) 04/13/2023 GLUCOSE 152 (H) 04/13/2023 ALBUMIN 3.8 09/21/2022 BILITOTAL 1.0 09/21/2022 ALKPHOS 87 09/21/2022 AST 17 09/21/2022 ALT 13 (L) 09/21/2022 ANIONGAP 7 04/13/2023 Lab Results Component Value Date IRON 71 09/21/2022 Lab Results Component Value Date CHOLESTEROL 250 (H) 09/21/2022 HDL 65 (H) 09/21/2022 LDLCALC 154 (H) 09/21/2022 TRIG 157 (H) 09/21/2022 Lab Results Component Value Date VCAR79FMY 10.7 (L) 09/21/2022 Lab Results Component Value Date FOLATE 10.9 09/21/2022 Lab Results Component Value Date [id number] 145.7 09/21/2022 IMPRESSION: S/P sleeve gastrectomy, weight loss PLAN: DISPOSITION: Return in 3 months for follow up visit EDUCATION: Pt encouraged to continue with positive lifestyle changes and take vitamins daily Check labs I spent greater than 20 minutes in total reviewing the patient's chart, interviewing the patient, and documenting today's visit. Carly Barcenas DO documented in this encounter [facility] 07-10-2023 History of Present illness Narrative Subjective Patient ID: Anthony Sawyer is a 57 y.o. female who presents for Follow-up (3 mo). HPI that is post gastric sleeve Some nausea and constipation. Some dry heave woth proteinshake Some smells textures can baother. Has zofran. 50# loss in 100days A1cto 6.6. fbs 120-140. Wtarget 150#. Will wash out trulicity for 3 weeks and reoport on N,V. Review of Systems General-no fatigue weight to within 10 pounds ENT no problems with vision swallowing Cardiac no chest pains palpitations change in exercise tolerance or capacity Pulmonary no cough shortness of breath GI no heartburn or abdominal pain Musculoskeletal no joint pains Objective BP 132/80 Ht 1.6 m (5' 3 ) Wt 112 kg (246 lb 4.8 oz) BMI 43.63 kg/m Physical Exam Heart regular without murmur lungs clear to auscultation Assessment/Plan Problem List Items Addressed This Visit ICD-10-CM Diabetes (CMS/[facility]) - Primary E11.9 Relevant Medications blood sugar diagnostic (Blood Glucose Test) strip Other Relevant Orders Hemoglobin A1C Follow Up In Primary Care Hyperlipemia E78.5 documented in this encounter [facility] Work Phone: 06-28-2023 History of Present illness Narrative SLEEP [place] Score - 4 CPAP/BIPAP/APAP Pressure - 5-15 Neck Circumference - 17 Most Recent Sleep Study - 11/07/22 Oxygen Use - no If so, how many liters and is it PRN, Nocturnal, or continuous? Patient is benefiting from PAP therapy-- DME - N/A Referred by- Dr. 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 Trazodone PRN Daytime Sleepiness - NO Are you able to take naps during the day - NO If so, how often? Very rarely naps Do you experience tossing or turning at night? NO Restless legs - YES-pt sts every nwo and then If so, what medications are you currently taking or have previously been prescribed for RLS? N/A Are you currently or have you previously been treated for ADHD, Narcolepsy, or Fatigue? - NO If so, what medications are you currently taking or have previously been prescribed for ADHD, Narcolepsy, or Fatigue? N/A Waking with gasping/shortness of breath - NO Difficulty concentrate- - NO Waking with headache- NO Significant weight change- NO Have you ever been on medication management for weight loss, spoke with anyone about weight loss surgery/procedures, or have you had a surgical procedure to help with weight loss?Yes Pain 0-10- 0 If yes, Location-n/a Upcoming surgeries?- No Has witnessed apnea ( some body told patient that they stop breathing in their sleep) - NO Med Refills (that we prescribe) - no Post surgery follow up and compliance. Pt returned machine on Sunday because insurance stop paying. HPI: SUBJECTIVE: Anthony Sawyer is a 57 y.o. female being seen today for sleep follow up. Most recent sleep testing showed: obstructive sleep apnea (AHI 6.2/hr) with sleep related hypoxia (tracey 82%) and problem is likely to result in a high risk morbidity without treatment. Currently on home APAP at 5-15 cmH2O. Patient most recent PAP machine is from 12/26/22. Patient stated that she is benefiting from the therapy. Her compliance is excellent. Average AHI from the compliance report was 1.4. Patient states improvements with her daytime fatigue or excessive daytime sleepiness with PAP therapy. Current sleep problems/side effects include: None. Patient denies snoring during therapy. Patient denies other sleep concerns today. Patient is had bariatric surgery and is down 45 lbs since. [employer] stated insurance was no longer going to pay for machine, therefore patient turned machine in on Sunday06/23/23. History and Allergies Allergies Allergen Reactions Not Able To Determine Anaphylaxis Nut allergy Sulfa Antibiotics ALL SULFA BASED DRUGS Cephalexin Hives Latex Hives and Redness Levofloxacin Past Medical History: Diagnosis Date Anemia low Fe Arthritis Diabetes mellitus type 2 Fibromyalgia Insomnia ART (obstructive sleep apnea) Past Surgical History: Procedure Laterality Date GASTRECTOMY LONGITUDINAL (SLEEVE) ROBOTIC N/A 04/11/2023 Laterality: N/A; Surgeon: Carly Barcenas DO; Location: [facility] OR ANKLE SURGERY Right CYSTECTOMY Bilateral shoulder KNEE SURGERY Bilateral SEPTOPLASTY Social History Socioeconomic History Marital status: Spouse name: Not on file Number of children: Not on file Years of education: Not on file Highest education level: Not on file Occupational History Not on file Tobacco Use Smoking status: Never Smokeless tobacco: Never Substance and Sexual Activity Alcohol use: Yes Comment: rarely Drug use: Never Sexual activity: Not on file Other Topics Concern Not on file Social History Narrative Not on file Social Determinants of Health Financial Resource Strain: Not on file Food Insecurity: Not on file Transportation Needs: Not on file Physical Activity: Not on file Stress: Not on file Social Connections: Not on file Intimate Partner Violence: Not on file Housing Stability: Not on file Family History Problem Relation Age of Onset Diabetes Mother Diabetes Father Heart Disease - Other Father Vitals: 06/28/23 0844 BP: 136/80 Pulse: 65 Resp: 17 SpO2: 98% Weight: 114.8 kg (253 lb) Height: 1.6 m (5' 3 ) Physical Examination Physical Exam Vitals and nursing note reviewed. Constitutional: General: She is not in acute distress. Appearance: She is well-developed. HENT: Head: Normocephalic and atraumatic. Right Ear: External ear normal. Left Ear: External ear normal. Eyes: General: Right eye: No discharge. Left eye: No discharge. Neck: Vascular: No JVD. Cardiovascular: Rate and Rhythm: Normal rate. Pulses: Normal pulses. Heart sounds: No murmur heard. No friction rub. No gallop. Pulmonary: Effort: Pulmonary effort is normal. No respiratory distress. Breath sounds: No wheezing. Abdominal: General: Bowel sounds are normal. Palpations: Abdomen is soft. Musculoskeletal: General: No deformity. Normal range of motion. Cervical back: Normal range of motion and neck supple. Skin: General: Skin is warm and dry. Neurological: General: No focal deficit present. Mental Status: She is alert and oriented to person, place, and time. Psychiatric: Mood and Affect: Mood normal. Behavior: Behavior normal. Judgment: Judgment normal. SLEEP [place] Score - 4 CPAP/BIPAP/APAP Pressure - 5-15 Neck Circumference - 17 Most Recent Sleep Study - 11/07/22 Oxygen Use - no If so, how many liters and is it PRN, Nocturnal, or continuous? Patient is benefiting from PAP therapy-- DME - N/A Referred by- Dr. 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 Trazodone PRN Daytime Sleepiness - NO Are you able to take naps during the day - NO If so, how often? Very rarely naps Do you experience tossing or turning at night? NO Restless legs - YES-pt sts every nwo and then If so, what medications are you currently taking or have previously been prescribed for RLS? N/A Are you currently or have you previously been treated for ADHD, Narcolepsy, or Fatigue? - NO If so, what medications are you currently taking or have previously been prescribed for ADHD, Narcolepsy, or Fatigue? N/A Waking with gasping/shortness of breath - NO Difficulty concentrate- - NO Waking with headache- NO Significant weight change- NO Have you ever been on medication management for weight loss, spoke with anyone about weight loss surgery/procedures, or have you had a surgical procedure to help with weight loss?Yes Pain 0-10- 0 If yes, Location-n/a Upcoming surgeries?- No Has witnessed apnea ( some body told patient that they stop breathing in their sleep) - NO Med Refills (that we prescribe) - no Post surgery follow up and compliance. Pt returned machine on Sunday because insurance stop paying. CURRENT MEDICATIONS: Current Outpatient Medications Medication Sig Dispense Refill Atorvastatin 40 MG tablet Take by mouth daily. PM DULoxetine HCl [address] Particles capsule daily. Etanercept 50 MG/ML Solution Prefilled Syringe injection Inject 1 mL as directed once a week. Folic acid 1 MG tablet Take by mouth 2 times daily. metFORMIN 500 MG tablet Take by mouth 2 times daily. Misc. Devices Misc by Unknown route. APAP 5-15 cm h2o set up 01/03/23-on [facility] [employer] omeprazole [address] capsule Take 1 capsule by mouth daily. 30 capsule 2 Ondansetron 4 MG Tab Dispersible tablet Take 1 tablet by mouth every 8 hours as needed. 30 tablet 2 traZODone 100 MG tablet 1 tablet every evening at 6 PM. oxyCODONE 5 MG/5ML Solution oral solution Take 5 mL by mouth every 6 hours as needed for up to 6 days. (Patient not taking: Reported on 03/27/2023) 120 mL 0 No current facility-administered medications for this visit. Lungs: Clear to auscultation bilaterally. Heart: Regular in rate and rhythm. Abd: Soft and non-distended. Skin: No obvious rashes or cyanosis. Neuro: Grossly non-focal examination. MS: No joint erythema/edema. ROS Reviewed. Interpretation of sleep study and compliance report form was completed today and reviewed together with the patient during this visit. ASSESSMENT & PLAN: * ART * Sleep Related Hypoxia * Overweight * Reviewed CPAP Compliance Form * Excessive Weight Loss * Patient was advised to continue with positive pressure therapy at home. * Patient was advised to adhere to a regular sleep hygiene habits. * Reinforced: adverse consequences of ART, compliance, wt loss, side sleeping if feasible, sleep hygiene (and avoid/minimize alcohol, sedative/respiratory depressant meds, nicotine/smoking cessation: quit), not driving/operating machinery while sleepy. * Patient will follow up PRN * Suggest retesting with HST in future if she struggles with weight loss Discussed with patient: the physiology of Sleep Apnea, medical conditions associated with sleep apnea (DM, HTN, CAD, Depression, Stroke, Headaches, CHF, Heart Dysrhythmias) and treatment options. Advised patient to avoid activities that could harm self or others when tired/sleep, including driving and/or operating heavy machinery. Depending on polysomnography results: - Order PAP titration based on insurance requirements, if already on therapy continue therapy, or if symptomatic with high AHI complete another titration. - Will start/continue PAP therapy after results of PAP titration - I will have prescription sent to a [employer] company of choice- who will be calling patient in approximately next 1-2 weeks. - Patient should be eligible for new supplies approximately every 3-6 months, depending on your insurance coverage, [employer] company will inform patient of coverage - If patient mask does not fit well, contact [employer] company before 30 days are up to get a new mask without an additional charge - Insurance requires regular usage and periodic office follow ups for PAP therapy to continue to cover supplies Insurance Requirements: - Your insurance requires a [id number] follow up visit within 31-90 days period after starting PAP therapy. - Your insurance requires compliance with PAP therapy, which is at least 4 hours per night for 70% of the time. This must be done over at least 30 day period and must occur within the intial 31-90 day period after starting PAP therapy. - Your insurance also requires at least a yearly follow up to continue to pay for PAP therapy and supplies. A total of 30 minutes were spent at this encounter, and this includes obtaining and/or reviewing separately obtained history , performing exam, review of previous tests and results, independently interpreting results of tests and communicating results to the patient/family/caregiver, ordering medications/tests/procedures, counseling the patient and/family on plan of care, referring/communicating with other health career portals teacher, as well as documenting the clinical information in the EHR. This includes face to face time and preparing to see the patient (review of tests) I personally reviewed selected chart notes, results, interpreted tests, imaging today before seeing the pt; reviewed and discussed w/ pt, questions answered. Portions of this chart were created using [email or web address] electronic dictation. Please excuse any typographical or grammatical errors contained herein as a result. Some Elements copied from previous notes. I have updated where appropriate, and all reflect current medical decision making from today's encounter. RICARDO Tilley documented in this encounter [facility] 06-11-2023 History of Present illness Narrative OUTPATIENT BARIATRIC POST-SX NUTRITION ASSESSMENT Referring Provider: Carly Barcenas, Nutrition Assessment Anthropometrics: Ht Readings from Last 1 Encounters: 05/10/23 1.6 m (5' 3 ) Wt Readings from Last 10 Encounters: 06/11/23 117 kg (258 lb) 05/10/23 123.4 kg (272 lb) 04/26/23 127.4 kg (280 lb 12.8 oz) 04/13/23 133.4 kg (294 lb) 03/27/23 132.5 kg (292 lb) 03/27/23 135.2 kg (298 lb) 03/22/23 136.1 kg (300 lb) 02/23/23 133.8 kg (295 lb) 12/05/22 122.6 kg (270 lb 3.2 oz) 12/05/22 131.2 kg (289 lb 3.2 oz) Reasnor body weight: 52.4 kg (115 lb 8.3 oz) Adjusted ideal body weight: 78.3 kg (172 lb 8.2 oz) Body mass index is 45.7 kg/m . Pre-surgical weight: 298 lbs on 04/11 : s/p VSG Total weight loss since sx= 40 lbs x 2 months (13.4% of pre-op BW) Estimated Energy Needs: Calories: 1310 kcals/day (25 kcal/kg IBW) Protein: 60-79 grams/day (1.1-1.5 gm/kg IBW) Vitamins/Minerals: Pt is taking all required vitamin & mineral supplements daily including: bariatric pal mv with 45 mg iron and and 600 mg calcium citrate BID. iron and calcium by >2 hours Taking calcium twice per day Meeting all bariatric LEARNING MANAGER recommendations Diet Recall: Meal What Time Breakfast Half a piece of dried toast (ensure max protein shake - 30 grams) 8 am Snack Macedonian yogurt with bran cereal on top (12 grams protein in serbian light and fit yogurt) 10 am Lunch [place] smoked sausage (2-3 oz), broccoli (1/2 cup) 12 pm Snack Protein bar (was a keto bar that only 3 grams of protien and 26 grams of fiber- other options discussed with patient) 5 pm Dinner Skipped due to the smell 7 30 pm Snack Ensure max protein shake 8-9 pm Fluids Over 64 oz NA Current exercise regimen: Pt is exercising 2-3 days/week for 20 minutes. (Walking on the treadmill) Post Surgery Nutrition Goals: Eat 5-6x/day (include breakfast, lunch, dinner, and 2-3 snacks): MET Consume adequate protein: MET Limit sugar & sugar alcohols to no more than 10 gm per meal/snack: MET Drink at least 64 ounces of hydrating fluid/day: MET Eliminate carbonation and straws (caffeine if <2 months post-op and alcohol if <6 months post-op): MET Exercise goal: 150 minutes of cardiovascular activity per week: MET 1-2 days of strength training: Not MET Separate eating and drinking by 30 minutes: MET Eat in this order: protein first, vegetable and fruit second and whole grain carbohydrates last: MET Chew your food 20-30x per bite: MET Meals should last 20-30 minutes: MET Subjective comments: Ms. Anthony Earlviktor is a 57 y.o. female here for a bariatric surgery post-op visit. Pt is 2 months post-op. Pt is tolerating phase 5 of the post-op diet. Pt reports she continues to have trouble with smell and textures of food items. Pt dietary recall and interview today seems she is struggling with tough protien sources and high amounts of fibrous vegetables which are common problem foods after bariatric surgery. Pt and I discussed preparation methods and tips to help with these trouble and discussed how taste changes after the VSG are common. Pt was educated on the importance of drinking plenty of fluids, not overwhelming her self when making her plate and to continue to do the small frequent portions 5-6 times per day, avoiding very spicy and high fat foods and avoid foods that have a strong aroma such as garlic, high fat fish, eggs, and onions. Pt will continue to focus on chewing her food thoroughly down to the a puree texture and do dime sized bites. Pt will continue to use a protien supplement until she is tolerating more food sources of protien. Pt will start doing a food journal and write down everything she ate, and how she prepared, and ate the food during a meal that she has symptoms. Pt will see me at 6 months post-op to assess diet tolerance. Pt was educated on the bariatric plate method and will reach out with any further questions/concerns. PMH: Past Medical History: Diagnosis Date Anemia low Fe Arthritis Diabetes mellitus type 2 Fibromyalgia Insomnia ART (obstructive sleep apnea) PSH: Past Surgical History: Procedure Laterality Date GASTRECTOMY LONGITUDINAL (SLEEVE) ROBOTIC N/A 04/11/2023 Laterality: N/A; Surgeon: Carly Barcenas DO; Location: [facility] ANKLE SURGERY Right CYSTECTOMY Bilateral shoulder KNEE SURGERY Bilateral SEPTOPLASTY Nutrition-Related Labs: Lab Results Component Value Date GLUCOSE 152 (H) 04/13/2023 GLUCOSE 137 (H) 04/13/2023 GLUCOSE 185 (H) 04/12/2023 HGBA1C 9.6 (H) 03/27/2023 SODIUM 137 04/13/2023 POTASSIUM 3.6 04/13/2023 PHOSPHORUS 3.5 04/11/2023 MAGNESIUM 2.1 04/11/2023 CHOLESTEROL 250 (H) 09/21/2022 TRIG 157 (H) 09/21/2022 HDL 65 (H) 09/21/2022 LDLCALC 154 (H) 09/21/2022 BP Readings from Last 3 Encounters: 05/10/23 177/85 04/26/23 169/86 04/13/23 146/67 Nutrition Diagnosis NC-1.4 Altered GI function related to surgical alteration of the gastrointestinal tract related to s/p VSG on 04/11. Nutrition Intervention Nutrition Goals: Consume 1200 kcals/day through 5-6 small meals (B, L, D, and 2-3 snacks) Consume 60-79 gm of protein/day Limit all sugar & sugar alcohol intake to <10 grams per meal/snack Consume at least 64 oz of hydrating fluid/day Continue to eliminate all carbonation and use of straws (caffeine and alcohol as advised) Eat off smaller plates and bowls Take dime sized bites and chew food 20-30x per bite, or until it is a consistent texture Meals need to last at least 20-30 minutes. Stop eating once you feel full Separate food and fluids by 30 minutes. Do not drink with meals Eat protein first, vegetables and fruits second, and whole grains last Include 150-300 minutes of physical activity per week including strength training at least twice per week Monitoring & Evaluation 6 month post-op appointment will be scheduled Time spent with pt: 30 minutes DONNIE Syed Registered Dietitian, Licensed Dietitian 06/11/23 documented in this encounter [facility] 05-10-2023 History of Present illness Narrative BARIATRIC CLINIC POST OP VISIT SHANTELL Simpson is seen today for a post op visit. She is doing well but does report vomiting with her pureed diet. She denies any nausea or abdominal pain. She is exercising and taking her vitamins. Current Outpatient Medications Medication Sig Dispense Refill Atorvastatin 40 MG tablet Take by mouth daily. PM DULoxetine HCl [address] Particles capsule daily. Etanercept 50 MG/ML Solution Prefilled Syringe injection Inject 1 mL as directed once a week. Folic acid 1 MG tablet Take by mouth 2 times daily. metFORMIN 500 MG tablet Take by mouth 2 times daily. Misc. Devices Misc by Unknown route. APAP 5-15 cm h2o set up 01/03/23-on [facility] [employer] omeprazole [address] capsule Take 1 capsule by mouth daily. 30 capsule 2 Ondansetron 4 MG Tab Dispersible tablet Take 1 tablet by mouth every 8 hours as needed. 30 tablet 2 traZODone 100 MG tablet 1 tablet every evening at 6 PM. oxyCODONE 5 MG/5ML Solution oral solution Take 5 mL by mouth every 6 hours as needed for up to 6 days. (Patient not taking: Reported on 03/27/2023) 120 mL 0 No current facility-administered medications for this visit. PHYSICAL EXAM: General Appearance: in no apparent distress and well developed and well nourished. Abdomen: soft, non-tender. Bowel sounds normal. No masses, no organomegaly Incision: healing well, clean and dry Extremities: extremities normal, atraumatic, no cyanosis or edema DATA REVIEW: Lab Results Component Value Date WBC 7.5 04/13/2023 HGB 10.8 (L) 04/13/2023 HCT 32.6 (L) 04/13/2023 MCV 89.7 04/13/2023 PLATELET 171 04/13/2023 Lab Results Component Value Date SODIUM 137 04/13/2023 POTASSIUM 3.6 04/13/2023 CO2 24 04/13/2023 CALCIUM 7.8 (L) 04/13/2023 BUN 22 (H) 04/13/2023 GLUCOSE 152 (H) 04/13/2023 ALBUMIN 3.8 09/21/2022 BILITOTAL 1.0 09/21/2022 ALKPHOS 87 09/21/2022 AST 17 09/21/2022 ALT 13 (L) 09/21/2022 ANIONGAP 7 04/13/2023 Lab Results Component Value Date IRON 71 09/21/2022 Lab Results Component Value Date CHOLESTEROL 250 (H) 09/21/2022 HDL 65 (H) 09/21/2022 LDLCALC 154 (H) 09/21/2022 TRIG 157 (H) 09/21/2022 Lab Results Component Value Date [id number] 10.7 (L) 09/21/2022 Lab Results Component Value Date FOLATE 10.9 09/21/2022 Lab Results Component Value Date [id number] 145.7 09/21/2022 IMPRESSION: S/P sleeve gastrectomy PLAN: DISPOSITION: Return in 2 months for follow up visit EDUCATION: Pt encouraged to continue with positive lifestyle changes and take vitamins daily Check labs in 2 months Advance to soft diet, call with problems Carly Barcenas DO documented in this encounter [facility] 04-13-2023 Nurse Note [address] Dr. Barcenas the patient was ready for discharge. Discharge instructions were then reviewed with the patient and friend at bedside. Meds to beds delivered with seal intact. IV removed without difficulty. The patient denies any questions or concerns at this time. [facility] 04-13-2023 Miscellaneous Notes Confirmed with Dr. Barcenas the patient was ready for discharge. Discharge instructions were then reviewed with the patient and friend at bedside. Meds to beds delivered with seal intact. IV removed without difficulty. The patient denies any questions or concerns at this time. Problem: Bariatric Surgery (Adult,Pediatric) Goal: Signs and Symptoms of Listed Potential Problems Will be Absent, Minimized or Managed (Bariatric Surgery) Description: Signs and symptoms of listed potential problems will be absent, minimized or managed by discharge/transition of care (reference Bariatric Surgery (Adult,Pediatric) CPG). Outcome: Ongoing Goal: Anesthesia/Sedation Recovery Outcome: Ongoing Pt assessment remains unchanged with any exceptions noted in flowsheets. Pt is resting in bed. SCD's on. Pt denies any pain or needs at this time. Call light within reach. Pt assessment remains unchanged with any exceptions noted in flowsheets. Pt wearing CPAP. Pt denies any pain or needs at this time. Call light within reach. Pt assessment complete. POC reviewed with pt. 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 Pt denies any pain or needs at this time. Call light within reach. Remains laying in bed, HOB low fowlers. No change noted from previous assessment by this RN unless otherwise detailed in coordinating flow sheets. Friend remains supportive at bedside. Denies additional needs at this time, call light in reach, bed in lowest position, SR upx2. Ambulating in [place], gait steady accompanied by friend. Ambulating in [place] with friend, gait steady. Remains laying in bed, HOB low fowlers. No change noted from previous assessment by this RN unless otherwise detailed in coordinating flow sheets. Denies additional needs at this time, call light in reach, bed in lowest position, SR upx2. Dr Barcenas in to see patient at this time. States will hold lovenox and have patient ambulate more, check H&H tomorrow and possibly discharge then. Patient aware of plan. Remains laying in bed, HOB low fowlers. No change noted from previous assessment by this RN unless otherwise detailed in coordinating flow sheets. Drinking fluids one ounce at a time and is keeping track of intake. Friend attentive at bedside. Corpsman delivered supplement shake for patient to try. Denies additional needs at this time, call light in reach, bed in lowest position, bed alarm on. Ambulating in [place], gait steady accompanied by friend at this time. Laying in bed on side, HOB low fowlers, upon this RN arrival to patient room. Eyes closed, respirations even and unlabored. Arouses easily to voice. Shift assessment initiated, detailed in coordinating flow sheets. Denies additional needs at this time, call light in reach, bed in lowest position, SR upx2. Patient appears to be flushed, patient states I think I'm having an allergic reaction . No hives. Patient denies itchiness, sob, or abnormal swelling. Refer to flowsheets for patient's blood glucose. Patient's sbp elevated, see flowsheets. Labetolol given, refer to mar. Benadryl given per patient's request for allergic reaction, see mar. Hat placed in patient's commode. Patient informed that staff will be collecting urine output. No change in pt condition since the last nursing assessment unless noted in the flowsheets. Patient denies needs. Call light and bedside table within reach. Problem: Patient Care Overview Goal: Plan of Care Review Outcome: Ongoing Goal: Individualization & Mutuality Outcome: Ongoing Goal: Discharge Needs Assessment Outcome: Ongoing Goal: Interdisciplinary Rounds/Family Conf Outcome: Ongoing Problem: Skin Integrity Impairment, Risk/Actual (Adult) Goal: Identify Related Risk Factors and Signs and Symptoms Description: Related risk factors and signs and symptoms are identified upon initiation of Human Response Clinical Practice Guideline (CPG) Outcome: Ongoing Goal: Skin Integrity/Wound Healing Description: Patient will demonstrate the desired outcomes by discharge/transition of care. Outcome: Ongoing No change in pt condition since the last nursing assessment unless noted in the flowsheets. Patient denies needs. Call light and bedside table within reach. Patient educated on the importance of scd therapy while in bed, frequent ambulation, no carbonated beverage, no straws, hob above 30 degrees, and keeping track of oral intake with sheet provided by this hospital. Patient verbally states she understands the teaching and denies questions on poc. Patient transferred to 3760 at this time, patient able to transport self over to bed. Vital signs in stable condition. Karen SOTO received report at bedside. Patient bed in lowest position with friend at bedside, call light in reach. Pt arrived to room 3760, oriented to room. Report received from Leslee SOTO. Education provided about water intake, pt verbalized understanding. No further needs voiced. Patient resting quietly in bed, voices an improvement in nausea, lights dimmed per patient request. PO fluid encouraged. Patient transported from PACU back to phase 2, patient is drowsy on 2LNC. Friend is present at bedside. Report received from Amarilis SOTO. I certify that this patient requires inpatient services at this time. I anticipate the expected length of stay will include at least two midnights. Current treatment plan includes pain and nausea control. Plans for post hospitalization care will be discharge to home. Operative Report DATE OF SERVICE: 04/11/2023 NAME: Anthony Sawyer CSN: [id number] PRE OP DIAGNOSES: Morbid obesity with DM POST OP DIAGNOSES: Morbid obesity with DM INDICATION FOR PROCEDURE: This patient is a pleasant 57 y.o. female suffering from morbid obesity and its comorbidities. After being seen in the clinic, She was found to be an appropriate candidate for a laparoscopic sleeve gastrectomy. OPERATIONS PERFORMED: Laparoscopic sleeve gastrectomy, robotic assisted, interpretation of ICG for perfusion SURGEON: Carly Barcenas DO DIRECTOR PART: Surgical Staff: Computer Analyst Supervisor: Lucrecia Rogers RN; Jen Crespo RN Scrub Person: Tess Suarez Automatic Steel Tie Adjuster Contact Center Engineer: Sandeep Moore ANESTHESIA: GETA ESTIMATED BLOOD LOSS IN MLS: 20 COMPLICATIONS: None SPECIMEN: stomach PREOPERATIVE NOTE: The contemplated operative procedure, risks, benefits and alternatives to this procedure have been discussed with this patient and/or legal desk representative. The patient and/or legal desk representative acknowledge(s) understanding of the above and consent(s) to the procedure. OPERATIVE PROCEDURE: The patient was given intravenous antibiotics, sequential stockings, subcutaneous heparin in the preoperative area. After informed consent, the patient was transferred to the operating room, placed in a supine position, and underwent general anesthesia. The abdomen was prepped and draped in the usual sterile fashion using ChloraPrep. Next a timeout was obtained that revealed the correct patient, position, and laterality of the procedure. Once this was done, a 1 cm transverse incision was made approximately 15 cm below the xiphoid and approximately 2 cm to the left of the midline. A 5 mm scope was then inserted into the abdomen under direct visualization without difficulty. The abdomen was then insufflated with CO2 to a pressure of 15 mmHg. An angled laparoscope was then inserted and additional ports were placed. 2 left-sided 8 mm trochars were placed under direct visualization. This was then followed by a 12 mm right-sided trocar and another 8 mm air seal trocar. The patient was then placed in 20 of Trendelenburg and the da Melodie robot was docked to the patient in the usual fashion. I then took my position at the surgical consult. The liver was then retracted superiorly medially revealing the anterior border of the no and the freehold liver retractor system was anchored at this point and then to the anterior abdominal wall superiorly and right lateral to provide adequate liver retraction. The calibration tube was then passed by anesthesia into the stomach and the stomach was suctioned. No hiatal hernia was noted. Following this, I measured 6 cm from the pylorus and began to take down the greater curve. I used the vessel sealer to divide the omentum along the greater curvature of the stomach. This was taken from 6 cm proximal of the pylorus to the angle of Hiss. The short gastric vessels were divided during this process. Following this, the calibration tube was secured along the lesser curvature and the 60 mm stapler with a green load was inserted and fired using the calibration tube as a guide. This was followed by a blue load and then the remainder of the sleeve was created with white loads. A leak test was then completed using 100 mL of saline mixed with 8 mL of ICG. No leak was identified. Following this, 2 mL of ICG was injected intravenously and perfusion of the stomach was confirmed. The stomach was then suctioned via the calibration tube which was then removed. Hemostasis was confirmed. The freehold retraction system was then removed from the patient. The specimen was removed through the 12 mm fascial site. It was then passed off to the back table and sent to pathology. The 12 mm fascial site was then closed with a 2-0 Vicryl in a posterior fashion. The robot was then undocked. All skin incisions were then closed with 4-0 Monocryl in a subcuticular fashion and sterile dressings were then applied. The patient tolerated the procedure well. All counts were correct at the end the procedure. The patient was transferred to PACU in stable condition. Carly Barcenas DO 11:11 AM documented in this encounter [facility] 04-13-2023 Plan of care note Problem: Bariatric Surgery (Adult,Pediatric) Goal: Signs and Symptoms of Listed Potential Problems Will be Absent, Minimized or Managed (Bariatric Surgery) Description: Signs and symptoms of listed potential problems will be absent, minimized or managed by discharge/transition of care (reference Bariatric Surgery (Adult,Pediatric) CPG). Outcome: Ongoing Goal: Anesthesia/Sedation Recovery Outcome: Ongoing [facility] 04-13-2023 Hospital course Narrative Discharge Summary Name: Anthony Sawyer Age: 57 y.o. Birthday: 1965 Admit Date: 04/11/2023 7:36 AM Discharge Date: 04/13/23 Discharge Time: 803 Discharge Unit: [facility] Admission Information Admitting Physician: Carly Barcenas DO Discharge Information Discharge Physician: Carly Barcenas DO Problem List Active Hospital Problems Diagnosis Type 2 diabetes mellitus with hyperglycemia (A1C > 6.49) ART (obstructive sleep apnea) S/P gastric sleeve procedure Hypertensive urgency Metabolic acidosis Hx of rheumatoid arthritis Morbid obesity with body mass index of 50 or higher Resolved Hospital Problems No resolved problems to display. Brief Summary of Hospital Course for Discharge Summary: Anthony Sawyer was admitted to the hospital following her procedure. For full operative details please see the operative note. she was placed on the med/surg floor and started on a diet. her labs and vitals were monitored. her pain and nausea were controlled with medication. On POD 2 she was deemed stable for discharge. Brief Summary of Consults for Discharge Summary: Brief Summary of Procedures and Imaging for Discharge Summary: Summary of last selected lab results and date obtained: Lab Results Component Value Date WBC 7.5 04/13/2023 HGB 10.8 (L) 04/13/2023 HCT 32.6 (L) 04/13/2023 PLATELET 171 04/13/2023 MCV 89.7 04/13/2023 Lab Results Component Value Date SODIUM 137 04/13/2023 POTASSIUM 3.6 04/13/2023 CHLORIDE 106 04/13/2023 CO2 24 04/13/2023 BUN 22 (H) 04/13/2023 CREATSERUM 0.95 04/13/2023 GLUCOSE 137 (H) 04/13/2023 Lab Results Component Value Date ALT 13 (L) 09/21/2022 AST 17 09/21/2022 ALKPHOS 87 09/21/2022 BILITOTAL 1.0 09/21/2022 Brief Summary of Labs for Discharge Summary: No discharge procedures on file. Current Outpatient Meds: Medication List for when you go home START taking these medications omeprazole [address] capsule Take 1 capsule by mouth daily. Doctor's comments: Do not fill until day of surgery Commonly known as: PRILOSEC For diagnoses: Morbid obesity with body mass index of 50 or higher Ondansetron 4 MG ODT tablet Take 1 tablet by mouth every 8 hours as needed. Doctor's comments: Do not fill until day of surgery Commonly known as: ZOFRAN-ODT For diagnoses: Morbid obesity with body mass index of 50 or higher CONTINUE taking these medications Atorvastatin 40 MG TABS Take by mouth daily. PM Commonly known as: LIPITOR DULoxetine HCl [address] capsule daily. Etanercept 50 MG/ML SOSY injection Inject 1 mL as directed once a week. Commonly known as: ENBREL Folic acid 1 MG TABS Take by mouth 2 times daily. Commonly known as: FOLVITE metFORMIN 500 MG TABS Take by mouth 2 times daily. Commonly known as: GLUCOPHAGE Misc. Devices MISC by Unknown route. APAP 5-15 cm h2o set up 01/03/23-on [employer] [facility] [employer] oxyCODONE 5 MG/5ML SOLN oral solution Take 5 mL by mouth every 6 hours as needed for up to 6 days. Doctor's comments: Do not fill until day of surgery Commonly known as: ROXICODONE For diagnoses: Morbid obesity with body mass index of 50 or higher traZODone 100 MG TABS 1 tablet every evening at 6 PM. Commonly known as: DESYREL STOP taking these medications Ergocalciferol 1.25 MG ([id number] UT) CAPS Commonly known as: VITAMIN D2 Hydroxychloroquine 200 MG TABS Commonly known as: PLAQUENIL Meloxicam 15 MG TABS Commonly known as: MOBIC METHOTREXATE PO predniSONE 10 MG TABS Commonly known as: DELTASONE traMADol 50 MG TABS Commonly known as: ULTRAM Trulicity 0.75 MG/0.5ML SOPN injection Generic drug: Dulaglutide Follow-up: No follow-up provider specified. Upcoming Appointments (up to five)-Some appointments for Medical Center outpatient clinics or diagnostic testing locations are not displayed below Provider Department Dept Phone 04/26/2023 8:30 AM Carly Barcenas [facility] [phone] 06/11/2023 8:00 AM Jan Hernandez [facility] Nutrition and Dietetics [phone] 06/28/2023 8:45 AM Rosanne Haro [facility] Pulmonary Disease [facility] [phone] documented in this encounter [facility] 04-13-2023 Hospital Discharge instructions Carly Barcenas DO - 04/13/2023 8:03 AM EDT Anthony Alejandra [facility] 1965 PRINCIPAL DIAGNOSIS: Morbid Obesity OTHER DIAGNOSES: Principal Problem: Type 2 diabetes mellitus with hyperglycemia (A1C > 6.49) Active Problems: Morbid obesity with body mass index of 50 or higher ART (obstructive sleep apnea) S/P gastric sleeve procedure Hypertensive urgency Metabolic acidosis Hx of rheumatoid arthritis Primary Care: April Brooks Other Providers: Procedures while hospitalized: Laparoscopic sleeve gastrectomy Wound care: You may shower and wash your abdomen with mild soap and water. Pat incisions to dry. Do not soak in a bath or pool for at least 2 weeks. Your incisions are closed with dissolvable stitches and skin glue. The glue will peel off on its own after about 1 week. Activity: You may walk and climb stairs as tolerated. You should not lie or sit down for more than 1 hour at a time except for when sleeping at night. Activity is important to prevent blood clots. No heavy lifting of objects greater than 15 lbs. No driving or returning to work until you no longer require narcotic pain medications. Diet: Follow your diet as instructed in the diet handbook Remember to drink at least 64 oz of liquids per day and try to take in 40-60 grams of protein. Avoid straws and carbonated beverages. Take small sips every couple of minutes. Your water bottle is your best friend and you shouldn t go anywhere without it! Warning: If you experience severe pain, fever over 101 F, redness or drainage from incisions, nausea/vomiting that lasts more than 12 hours, rapid heart rate or shortness of breath, call your surgeon immediately. You do not need to begin taking your vitamins until instructed by your surgeon at your first follow-up visit. Please consult your medical doctor regarding adjusting your medications after surgery (particularly diabetic and blood pressure medications). Follow up with Dr. Barcenas at your scheduled visit or call for an earlier appointment if having issues or concerns. documented in this encounter [facility] 04-13-2023 Nurse Note Pt assessment remains unchanged with any exceptions noted in flowsheets. Pt is resting in bed. SCD's on. Pt denies any pain or needs at this time. Call light within reach. [facility] 04-12-2023 Nurse Note Pt assessment remains unchanged with any exceptions noted in flowsheets. Pt wearing CPAP. Pt denies any pain or needs at this time. Call light within reach. [facility] 04-12-2023 Nurse Note Pt assessment complete. POC reviewed with pt. 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 Pt denies any pain or needs at this time. Call light within reach. [facility] 04-12-2023 Nurse Note Remains laying in bed, HOB low fowlers. No change noted from previous assessment by this RN unless otherwise detailed in coordinating flow sheets. Friend remains supportive at bedside. Denies additional needs at this time, call light in reach, bed in lowest position, SR upx2. [facility] 04-12-2023 Nurse Note Ambulating in middleton, gait steady accompanied by friend. [facility] Nurse Note Ambulating in middleton with friend, gait steady. [facility] 04-12-2023 Nurse Note Remains laying in bed, HOB low fowlers. No change noted from previous assessment by this RN unless otherwise detailed in coordinating flow sheets. Denies additional needs at this time, call light in reach, bed in lowest position, SR upx2. [facility] 04-12-2023 History of Present illness Narrative GENERAL SURGERY PROGRESS NOTE PATIENT NAME: Anhtony Sawyer DATE: 04/12/2023 HPI: Anthony is seen today at bedside. She is doing well. She denies abdominal pain, nausea or vomiting. She is walking in the halls ON EXAMINATION: BP 131/63 (BP Location: Right arm, BP Position: Lying) Pulse 62 Temp 97.8 F (36.6 C) (Oral) Resp 18 Ht 1.6 m (5' 3 ) Wt 135.2 kg (298 lb) SpO2 96% BMI 52.79 kg/m Smoking Status Never APPEARANCE: NAD, looks well. ABDOMEN: Soft, tee-incisional tenderness, nondistended WOUND(S): Incisions Clean / Dry / Intact INS/OUTS: Intake/Output Summary (Last 24 hours) at 04/12/2023 1255 Last data filed at 04/12/2023 1245 Gross per 24 hour Intake 1440 ml Output 0 ml Net 1440 ml Date 04/12/23 0700 - 04/13/23 0659 Shift 2342-5756 0622-2504 5779-3249 24 Hour Total INTAKE P.O. 1320 1320 Shift Total(mL/kg) 1320(9.8) 1320(9.8) OUTPUT Other 0 0 Shift Total(mL/kg) 0(0) 0(0) Weight (kg) 135.2 135.2 135.2 135.2 BLOOD WORK: Recent Labs 04/11/23 0812 04/11/23 1206 04/12/23 0504 04/12/23 0950 WBC 5.9 8.6 9.3 10.0 HCT 41.3 40.3 38.3 35.2* CO2 22 19* 18* -- BUN 12 12 16 -- IMPRESSION: - Pt is doing well, drop in Hg PLAN: - liquid diet - Multimodal pain regimen: scheduled tylenol, PRN oxycodone - Encourage Ambulation / use of incentive spirometry - VTE prophylaxis - Continue with SCDs hold HSQ due to drop in Hg - Disposition - Likely home tomorrow Carly Barcenas DO Bariatric and Minimally Invasive General Surgery INPATIENT POST BARIATRIC SX NUTRITION ASSESSMENT Ms. Anthony Sawyer is a 57 y.o. female was admitted to [facility] for: 1. Morbid obesity with body mass index of 50 or higher 2. Type 2 diabetes mellitus with hyperglycemia, unspecified whether penitentiary insulin use 3. Preop testing Nutrition Assessment Subjective Assessment: Pt is POD #1 from G w/ Dr. Barcenas with a presurgical weight of 298 lbs 0 oz. Met with pt today to discuss nutrition discharge plans. Pt is tolerating Phase 1 of the bariatric diet well. Pt is tracking fluid intake and total since surgery is 36 oz with a goal of 40 oz total prior to discharge. Advised pt that Rg is available to purchase through cafeteria if desired. Pt is tolerating her fluids very well at this time and has increased her intake to 2 oz every fifteen minutes. Pt reports she just ordered an ensure max protein and will try this out as well prior to discharge. Pt mother was in the room with her, and she has lost over 100 lbs and kept it off since her bariatric surgery several years ago. Pt reports she feels confident going home and has her vitamins and protein shakes ready at home. Pt will reach out with any further questions/concerns. Educated pt regarding the followin. Phases of the Bariatric Post-op diet and how to transition 2. Goals for adequate fluid intake 3. Vitamin and mineral supplements post-op: No need to add these into daily regimen until approved by surgeon 4. Bariatric nutrition goals: avoiding carbonation, caffeine, alcohol; <10 gms sugar per meal; small sips/bites, 1/4 - 1/2 cup portions at each meal; take 20-30 minutes per meal; how to consume adequate protein and specific protein goal Pt was provided with: 1. RYGB and Sleeve Gastrectomy Discharge Nutrition Therapy (NCM) 2. Bariatric and/or Clinical RD contact information Pt agreeable to all recommendations, nutrition goals, and nutrition plan for discharge. Anthropometrics: Ht Readings from Last 1 Encounters: 04/11/23 1.6 m (5' 2.99 ) Wt Readings from Last 10 Encounters: 04/11/23 135.2 kg (298 lb) 03/27/23 132.5 kg (292 lb) 03/27/23 135.2 kg (298 lb) 03/22/23 136.1 kg (300 lb) 02/23/23 133.8 kg (295 lb) 12/05/22 122.6 kg (270 lb 3.2 oz) 12/05/22 131.2 kg (289 lb 3.2 oz) 11/14/22 127 kg (280 lb) 10/24/22 127.9 kg (282 lb) 10/03/22 125.2 kg (276 lb) Reasnor body weight: 52.4 kg (115 lb 7.7 oz) Adjusted ideal body weight: 85.5 kg (188 lb 7.8 oz) Body mass index is 52.8 kg/m . EER: Calories: 1310 kcal/day (25 kcal/kg IBW) Protein: 60-79 gm/day (1.1-1.5 gm/kg IBW) Fluid: >64 oz/day Current Diet Orders Procedures DIET LIQUID Bariatric Clear Liquid Diet Standing Status: Standing Number of Occurrences: 1 Nutrition-Related Hx: Appetite: fair Nausea: No Vomiting: No Diarrhea: No PMH: Past Medical History: Diagnosis Date Anemia low Fe Arthritis Diabetes mellitus type 2 Fibromyalgia Insomnia ART (obstructive sleep apnea) PSH: Past Surgical History: Procedure Laterality Date GASTRECTOMY LONGITUDINAL (SLEEVE) ROBOTIC N/A 04/11/2023 Laterality: N/A; Surgeon: Carly Barcenas DO; Location: [facility] ANKLE SURGERY Right CYSTECTOMY Bilateral shoulder KNEE SURGERY Bilateral SEPTOPLASTY Nutrition-Related Labs: Lab Results Component Value Date GLUCOSE 184 (H) 04/12/2023 GLUCOSE 255 (H) 04/11/2023 GLUCOSE 237 (H) 04/11/2023 HGBA1C 9.6 (H) 03/27/2023 SODIUM 135 (L) 04/12/2023 POTASSIUM 4.6 04/12/2023 MAGNESIUM 2.1 04/11/2023 PHOSPHORUS 3.5 04/11/2023 CALCIUM 8.4 04/12/2023 ALBUMIN 3.8 09/21/2022 TP 7.4 09/21/2022 BUN 16 04/12/2023 CREATSERUM 0.92 04/12/2023 AST 17 09/21/2022 ALT 13 (L) 09/21/2022 HGB 11.3 (L) 04/12/2023 HCT 35.2 (L) 04/12/2023 IRON 71 09/21/2022 WBC 10.0 04/12/2023 RBC 3.91 (L) 04/12/2023 B12 261 09/21/2022 [id number] 10.7 (L) 09/21/2022 FOLATE 10.9 09/21/2022 Nutrition Diagnosis NI-1.2 Inadequate energy intake related to recent bariatric sx as evidenced by bariatric clear liquid diet. NC-1.4 Altered GI function related to alteration to structure of GI track as evidenced by recent bariatric sx: VSG. Intervention Provided nutrition education as described above Monitoring & Evaluation 1. Monitor patient weight, labs, PO intake and tolerance to diet 2. Patient verbalized acknowledgement that follow up visits with a dietitian can be scheduled outpatient & knows to place call to RD or bariatric clinic to set up appointments as needed/desired 3. Patient to call RD, bariatric clinic, or surgeon should any issues, concerns, or questions arise after discharge Time spent with pt: 15 minutes DONNIE Syed Registered Dietitian, Licensed Dietitian 04/12/23 04/12/23 0941 Referral Information Arrived From home or self-care Readmission Information Was patient readmitted within 30 Days? No Information Source Information Source patient Information Source Name self Contact Information Machine Ironer/SW Added to Care Team Yes This Head Host/Hostess is Primary Machine Ironer/SW Yes Social Work Contact Name Erin Faust CLAIM BENEFIT SPECIALIST Turf Farmer's Phone Number [phone] Living Environment Lives With alone Living Arrangements house Provides Primary Care For no one Primary Care Provided By self Support System Immediate family;Friends;Neighbors Able to Return to Prior Arrangements yes Functional Status Patient's Functional Status Prior To This Admission? Independent Concerns With Patient Being Able To Care For Themselves At Discharge? No Employment/Financial Employed? Yes Employment/Financial Concerns no Source Of Income salary/wages Financial Concerns none Initial Discharge Planning Home Care Services (TREATER HELPER) No Home Therapies (TREATER HELPER) None DME (TREATER HELPER) CPAP Medical Supplies (TREATER HELPER) None Anticipated discharge disposition Home Anticipated Changes Related to Illness none Transportation Available family or friend will provide;car Assessment/Concerns to be Addressed Concerns To Be Addressed no discharge needs identified CLAIM BENEFIT SPECIALIST spoke with patient who was present with a friend at bedside. Patient states she lives alone in a one story home. She states she feels safe and reported she is very independent. Patient reported that she has a CPAP but denies any DME use. Patient states she has great support from family and friends, she denies any current advanced directives and states she has access to both food and medications. Discharge plan Return home, denies current SS needs. 04/11/23 1630 Time In/Out Time In 1630 Time Out 1650 Total Visit Time 20 minutes PT Therapy Completed Yes Initial Evaluation/Screen Completed? yes General Information RN Approved Intervention as tolerated Surgical Procedure laparoscopic sleeve gastrectomy Past Medical History Past Medical History: Diagnosis Date Anemia low Fe Arthritis Diabetes mellitus type 2 Fibromyalgia Insomnia ART (obstructive sleep apnea) Past Surgical History Past Surgical History: Procedure Laterality Date ANKLE SURGERY Right CYSTECTOMY Bilateral shoulder KNEE SURGERY Bilateral SEPTOPLASTY Existing Precautions/Restrictions lifting Home Setting Residence House Lives With alone First floor setup bedroom Number of stairs to enter home 1 Mobility Equipment Available none used Previous Level of Function Ambulation Skills independent Assistive Device none used Level of Ambulation community General Pain Documentation (Adult, OB, Peds) Presence of Pain denies pain/discomfort Presence of Pain Score (Auto-calculated) 0 Cognitive Status Examination Orientation Status (Cognition) oriented x 4 Level of Consciousness alert Able to Follow Commands (Communication) WFL Personal Safety and Judgment intact Range of Motion (ROM) Range of Motion Examination bilateral lower extremity ROM was WFL Manual Muscle Testing (MMT) Manual Muscle Testing Results bilateral lower extremity MMT was WFL Bed Mobility Skill: Supine to Sit, Rehab Eval Level of Wright: Supine/Sit independent Transfer Skill: Sit To Stand, Rehab Eval Wright (Sit-Stand Transfers) independent Gait Skills, PT Eval Level of Wright: Gait independent Assistive Device For Transfer: Gait (IV pole) Gait Distance 200 feet Gait Analysis, PT Eval Gait Pattern Used swing-through gait Gait Deviations Identified (Gait) decreased gait speed;decreased giorgio Balance Additional Documentation (Seated/Standing: Good) Sensory Examination Sensory Examination WFL Plan of Care Interventions Additional Comments Pt educated on walking program at home, log roll technique to get in and out of bed, and HEP consisting of standing LE there-ex. Pt reports understanding of all education. Pt left sitting up in bed with call gardiner within reach. Assessment Assessment Narrative Pt is a 57 year old female s/p laparoscopic sleeve gastrectomy. Pt is at her baseline and independent with all mobility tasks. No functional deficits noted. Pt does not require further PT services. Discharge Recommendations Pt to return home with HEP. Clinical Impression Co-evaluation/co-treatment performed? No simultaneous skilled care performed Criteria for Skilled Therapeutic Interventions Met (PT Eval) no problems identified which require skilled intervention Therapy Frequency no therapy warranted Today's Treatment Included PT evaluation and patient education Therapist Recommendations At Discharge Recommendations PT Services not recommended at Discharge Plan Plan for next session PT evaluation only documented in this encounter [facility] 04-12-[address] Barcenas in to see patient at this time. States will hold lovenox and have patient ambulate more, check H&H tomorrow and possibly discharge then. Patient aware of plan. [facility] 04-12-2023 Nurse Note Remains laying in bed, HOB low fowlers. No change noted from previous assessment by this RN unless otherwise detailed in coordinating flow sheets. Drinking fluids one ounce at a time and is keeping track of intake. Friend attentive at bedside. Corpsman delivered supplement shake for patient to try. Denies additional needs at this time, call light in reach, bed in lowest position, bed alarm on. [facility] 04-12-2023 Nurse Note Ambulating in [place], gait steady accompanied by friend at this time. T [facility] 04-12-2023 Nurse Note Laying in bed on side, HOB low fowlers, upon this RN arrival to patient room. Eyes closed, respirations even and unlabored. Arouses easily to voice. Shift assessment initiated, detailed in coordinating flow sheets. Denies additional needs at this time, call light in reach, bed in lowest position, SR upx2. [facility] 04-12-2023 Nurse Note Patient appears to be flushed, patient states I think I'm having an allergic reaction . No hives. Patient denies itchiness, sob, or abnormal swelling. Refer to flowsheets for patient's blood glucose. Patient's sbp elevated, see flowsheets. Labetolol given, refer to mar. Benadryl given per patient's request for allergic reaction, see mar. [facility] 04-12-2023 Nurse Note Hat placed in patient's commode. Patient informed that staff will be collecting urine output. No change in pt condition since the last nursing assessment unless noted in the flowsheets. Patient denies needs. Call light and bedside table within reach. [facility] 04-12-2023 Plan of care note Problem: Patient Care Overview Goal: Plan of Care Review Outcome: Ongoing Goal: Individualization & Mutuality Outcome: Ongoing Goal: Discharge Needs Assessment Outcome: Ongoing Goal: Interdisciplinary Rounds/Family Conf Outcome: Ongoing Problem: Skin Integrity Impairment, Risk/Actual (Adult) Goal: Identify Related Risk Factors and Signs and Symptoms Description: Related risk factors and signs and symptoms are identified upon initiation of Human Response Clinical Practice Guideline (CPG) Outcome: Ongoing Goal: Skin Integrity/Wound Healing Description: Patient will demonstrate the desired outcomes by discharge/transition of care. Outcome: Ongoing [facility] 04-12-2023 Nurse Note No change in pt condition since the last nursing assessment unless noted in the flowsheets. Patient denies needs. Call light and bedside table within reach. [facility] 04-11-2023 Nurse Note Patient educated on the importance of scd therapy while in bed, frequent ambulation, no carbonated beverage, no straws, hob above 30 degrees, and keeping track of oral intake with sheet provided by this hospital. Patient verbally states she understands the teaching and denies questions on poc. [facility] 04-11-2023 Consult note Associated Order (s): IP CONSULT TO GENERAL MEDICINE Consult 04/11/2023 7:36 AM Chief Complaint: Reason for Consult: dm type 2. htn urgency. History of Present Illness: Patient is a 57 y.o. female presents to the hospital for planned gastric sleeve procedure. Post operatively patient was hypertensive and hyperglycemic. Case discussed with Dr barcenas. He request consult to manage. Patient bp has improved throughout her recovery. She stated she normally runs sys 130s. Discussed insulin regimen while hospitalized. Her last h a1c was 9.6. She take metformin at home. She follows with pcp for her diabetes. The patient denies headaches, blurred vision, lightheadedness, fever, chills, chest pain, shortness of breath, abdominal pain, back pain, nausea, vomiting, diarrhea/constipation, dysuria, unusual arthralgias, myalgias, skin rashes or lesions. Objective: Patient Active Problem List Diagnosis Date Noted ART (obstructive sleep apnea) 04/11/2023 S/P gastric sleeve procedure 04/11/2023 Hypertensive urgency 04/11/2023 Metabolic acidosis 04/11/2023 Type 2 diabetes mellitus with hyperglycemia (A1C > 6.49) 12/05/2022 Morbid obesity with body mass index of 50 or higher 08/24/2022 Past Medical History: Diagnosis Date Anemia low Fe Arthritis Diabetes mellitus type 2 Fibromyalgia Insomnia ART (obstructive sleep apnea) Past Surgical History: Procedure Laterality Date ANKLE SURGERY Right CYSTECTOMY Bilateral shoulder KNEE SURGERY Bilateral SEPTOPLASTY Social History Tobacco Use Smoking status: Never Smokeless tobacco: Never Substance Use Topics Alcohol use: Yes Comment: rarely Family History Problem Relation Age of Onset Diabetes Mother Diabetes Father Heart Disease - Other Father Medications Prior to Admission Medication Sig Dispense Refill Last Dose Atorvastatin 40 MG tablet Take by mouth daily. PM 04/04/2023 DULoxetine HCl [address] Particles capsule daily. 04/04/2023 Ergocalciferol 1.25 MG (12905 UT) capsule Take 1 capsule by mouth once a week for 8 doses. (Patient not taking: Reported on 03/27/2023) 4 capsule 1 Etanercept 50 MG/ML Solution Prefilled Syringe injection Inject 1 mL as directed once a week. 04/04/2023 Folic acid 1 MG tablet Take by mouth 2 times daily. 04/04/2023 Hydroxychloroquine 200 MG tablet Take by mouth daily. 04/04/2023 Meloxicam 15 MG tablet Take 1 tablet by mouth daily. 04/04/2023 metFORMIN 500 MG tablet Take by mouth 2 times daily. 04/09/2023 METHOTREXATE PO Take 8 tablets by mouth once a week. 04/04/2023 Misc. Devices Misc by Unknown route. APAP 5-15 cm h2o set up 01/03/23-on [facility] [employer] omeprazole [address] capsule Take 1 capsule by mouth daily. (Patient not taking: Reported on 03/27/2023) 30 capsule 2 Unknown Ondansetron 4 MG Tab Dispersible tablet Take 1 tablet by mouth every 8 hours as needed. (Patient not taking: Reported on 03/27/2023) 30 tablet 2 Unknown oxyCODONE 5 MG/5ML Solution oral solution Take 5 mL by mouth every 6 hours as needed for up to 6 days. (Patient not taking: Reported on 03/27/2023) 120 mL 0 predniSONE 10 MG tablet Take by mouth as needed. More than a month traMADol 50 MG tablet TAKE 1 TABLET FOUR TIMES DAILY NEEDED 04/09/2023 traZODone 100 MG tablet 1 tablet every evening at 6 PM. 04/09/2023 Trulicity 0.75 MG/0.5ML Solution Pen-injector injection INJECT 0.75 MG Weekly 04/04/2023 Allergies Allergen Reactions Not Able To Determine Anaphylaxis Nut allergy Sulfa Antibiotics ALL SULFA BASED DRUGS Cephalexin Hives Latex Hives and Redness Levofloxacin Review of Systems: Ten systems reviewed and found to be negative unless otherwise stated in the history and present illness. PHYSICAL EXAM: Patient Vitals for the past 8 hrs: BP Temp Temp src Pulse Resp SpO2 Height Weight 04/11/23 1600 -- -- -- -- -- -- 1.6 m (5' 2.99 ) 135.2 kg (298 lb) 04/11/23 1551 140/64 -- -- 69 22 99 % -- -- 04/11/23 1530 118/58 -- -- 68 24 96 % -- -- 04/11/23 1500 126/57 -- -- 72 14 96 % -- -- 04/11/23 1430 135/73 -- -- 79 15 96 % -- -- 04/11/23 1400 154/69 -- -- 68 14 98 % -- -- 04/11/23 1345 160/71 -- -- 66 15 98 % -- -- 04/11/23 1330 197/84 -- -- 68 14 97 % -- -- 04/11/23 1315 (!) -- -- 76 12 97 % -- -- 04/11/23 1300 (!) 98.4 F (36.9 C) Temporal 84 17 95 % -- -- 04/11/23 1255 (!) -- -- 81 17 95 % -- -- 04/11/23 1250 188/ -- -- 78 13 96 % -- -- 04/11/23 1245 (!) -- -- 81 14 96 % -- -- 04/11/23 1240 176/ -- -- 83 14 95 % -- -- 04/11/23 1235 (!) -- -- 89 9 97 % -- -- 04/11/23 1230 (!) -- -- 92 12 97 % -- -- 04/11/23 1225 (!) -- -- 93 21 97 % -- -- 04/11/23 1220 (!) -- -- 94 12 97 % -- -- 04/11/23 1215 (!) -- -- 97 17 97 % -- -- 04/11/23 1210 (!) 222/93 -- -- 96 17 98 % -- -- 04/11/23 1205 (!) 205/ -- -- 98 18 98 % -- -- 04/11/23 1200 (!) 204/ -- -- 96 14 97 % -- -- 04/11/23 1155 (!) 203 -- -- 97 16 98 % -- -- 04/11/23 1150 198/86 -- -- 100 18 98 % -- -- 04/11/23 1145 (!) -- -- 103 19 99 % -- -- 04/11/23 1140 (!) 194/ -- -- 102 17 99 % -- -- 04/11/23 1135 196/86 -- -- 83 17 99 % -- -- 04/11/23 1130 186/85 97.1 F (36.2 C) -- 86 23 95 % -- -- General: Patient Awake. No acute distress. HEENT: Normalcephalic, atraumatic. Pupils equal, round, reactive, to light and accomodation B/L. Bilateral nares patent without obvious drainage. Oral mucosa moist, pink, intact without ulcers or lesions. Neck: No JVD, no thyromegaly, no anterior or posterior lymphadenopathy. Cardiovascular: Regular rate and rhythm, without murmurs, rubs, or gallops. Respiratory: Bilateral Upper and Lower Lobes anterior and posteriorly without wheezes, rales, or rhonchi, diminished. Abdomen: Soft, rounded, non-tender. Bowel sounds present x4 quadrants. No rebound. No organomegaly or masses noted upon deep palpation. Extremities: No edema, clubbing or cyanosis, pulses palpable 2+ distally. Skin: Warm, Dry, Intact. No obvious rashes or lesions noted. Neuro: Patient awake, alert, orientedx3. Cranial nerves 2-12 grossly intact upon seated examination. No focal deficit noted. Diagnostics: CBC Lab Results Component Value Date/Time WBC 8.6 04/11/2023 12:06 PM WBC 5.9 04/11/2023 08:12 AM WBC 7.4 03/27/2023 11:53 AM HGB 13.2 04/11/2023 12:06 PM HGB 13.3 04/11/2023 08:12 AM HGB 11.7 (L) 03/27/2023 11:53 AM HCT 40.3 04/11/2023 12:06 PM HCT 41.3 04/11/2023 08:12 AM HCT 35.5 (L) 03/27/2023 11:53 AM PLATELET 223 04/11/2023 12:06 PM PLATELET 236 04/11/2023 08:12 AM PLATELET 210 03/27/2023 11:53 AM Chemistry Lab Results Component Value Date/Time GLUCOSE 247 (H) 04/11/2023 12:06 PM GLUCOSE 199 (H) 04/11/2023 08:12 AM GLUCOSE 222 (H) 03/27/2023 11:53 AM BUN 12 04/11/2023 12:06 PM BUN 12 04/11/2023 08:12 AM BUN 16 03/27/2023 11:53 AM CREATSERUM 0.73 04/11/2023 12:06 PM CREATSERUM 0.78 04/11/2023 08:12 AM CREATSERUM 0.79 03/27/2023 11:53 AM SODIUM 137 04/11/2023 12:06 PM SODIUM 140 04/11/2023 08:12 AM SODIUM 136 (L) 03/27/2023 11:53 AM POTASSIUM 4.5 04/11/2023 12:06 PM POTASSIUM 4.2 04/11/2023 08:12 AM POTASSIUM 4.3 03/27/2023 11:53 AM CHLORIDE 108 (H) 04/11/2023 12:06 PM CHLORIDE 107 04/11/2023 08:12 AM CHLORIDE 105 03/27/2023 11:53 AM CO2 19 (L) 04/11/2023 12:06 PM CO2 22 04/11/2023 08:12 AM CO2 23 03/27/2023 11:53 AM ALBUMIN 3.8 09/21/2022 11:22 AM CALCIUM 8.6 04/11/2023 12:06 PM CALCIUM 9.0 04/11/2023 08:12 AM CALCIUM 8.9 03/27/2023 11:53 AM PHOSPHORUS 3.5 04/11/2023 12:06 PM MAGNESIUM 2.1 04/11/2023 12:06 PM COAG Lab Results Component Value Date/Time PT 12.5 03/27/2023 11:53 AM INR 0.92 03/27/2023 11:53 AM PTT 26.3 03/27/2023 11:53 AM ABG No results found for: HCO3 , PCO2 , PO2 Other notable labs: Impression and Plan: Principal Problem: Type 2 diabetes mellitus with hyperglycemia (A1C > 6.49): Sliding scale insulin with accu-checks AC&HS, Resume home medications at discharge, Diabetic diet a1c 9.6 Active Problems: Morbid obesity with body mass index of 50 or higher: Diet and lifestyle modification recommended. ART (obstructive sleep apnea)- cpap per home setting. Avoid oversedation. S/P gastric sleeve procedure d/w dr barcenas pod 0. Hypertensive urgency: prn iv labetalol if sys > 160. Monitor vs. No home rx. Metabolic acidosis: noted hyperchloremia. Labs ordered for am. Monitor. Hx of RA. Fu rheumatology. Code Status No Order I personally spent 5 minutes in the management of this patient, the details of my visit are listed in my documentation above. Coleman Moreau BUDGET CONTROLLER completing consultation in collaboration with attending. Please note Portions of this note utilized [email or web address] dictation software, please excuse any typographical or grammatical errors Associated attestation - Dawit Ferreira DO - 04/11/2023 5:10 PM EDT Patient seen and examined independently. Meds, labs, and radiographs reviewed. +HTN Urgency w/ multiple SBP over 200 - denies ALVAREZ/CP/SOB; Type 2 DM All additional ROS NEG. Mild somnolence post anesthesia HEENT NC/AT PERRLA MM moist w/o ulceration No TM or JVD. Lungs diminished and heart tones regular on exam. Abdo Obese Soft NT/ND w/ BS. No LE edema or rash. No focal deficits noted on exam. SBP 220 - meds adjusted. HBA1C 9.6. SS/I and accu checks added. ART - continuous pulse ox monitoring and avoid sedatives. CPAP use w/ naps and HS. All questions and concerns addressed w/ patient at BS in regard to plan of care. I agree with assessments and plan of care. I personally spent >50% of the total time spent of 20 min on this date's billable encounter including all of the MDM for this encounter. [facility] 04-11-2023 Consult note Associated Order (s): IP CONSULT TO GENERAL MEDICINE Consult 04/11/2023 7:36 AM Chief Complaint: Reason for Consult: dm type 2. htn urgency. History of Present Illness: Patient is a 57 y.o. female presents to the hospital for planned gastric sleeve procedure. Post operatively patient was hypertensive and hyperglycemic. Case discussed with Dr barcenas. He request consult to manage. Patient bp has improved throughout her recovery. She stated she normally runs sys 130s. Discussed insulin regimen while hospitalized. Her last h a1c was 9.6. She take metformin at home. She follows with pcp for her diabetes. The patient denies headaches, blurred vision, lightheadedness, fever, chills, chest pain, shortness of breath, abdominal pain, back pain, nausea, vomiting, diarrhea/constipation, dysuria, unusual arthralgias, myalgias, skin rashes or lesions. Objective: Patient Active Problem List Diagnosis Date Noted ART (obstructive sleep apnea) 04/11/2023 S/P gastric sleeve procedure 04/11/2023 Hypertensive urgency 04/11/2023 Metabolic acidosis 04/11/2023 Type 2 diabetes mellitus with hyperglycemia (A1C > 6.49) 12/05/2022 Morbid obesity with body mass index of 50 or higher 08/24/2022 Past Medical History: Diagnosis Date Anemia low Fe Arthritis Diabetes mellitus type 2 Fibromyalgia Insomnia ART (obstructive sleep apnea) Past Surgical History: Procedure Laterality Date ANKLE SURGERY Right CYSTECTOMY Bilateral shoulder KNEE SURGERY Bilateral SEPTOPLASTY Social History Tobacco Use Smoking status: Never Smokeless tobacco: Never Substance Use Topics Alcohol use: Yes Comment: rarely Family History Problem Relation Age of Onset Diabetes Mother Diabetes Father Heart Disease - Other Father Medications Prior to Admission Medication Sig Dispense Refill Last Dose Atorvastatin 40 MG tablet Take by mouth daily. PM 04/04/2023 DULoxetine HCl [address] Particles capsule daily. 04/04/2023 Ergocalciferol 1.25 MG (43591 UT) capsule Take 1 capsule by mouth once a week for 8 doses. (Patient not taking: Reported on 03/27/2023) 4 capsule 1 Etanercept 50 MG/ML Solution Prefilled Syringe injection Inject 1 mL as directed once a week. 04/04/2023 Folic acid 1 MG tablet Take by mouth 2 times daily. 04/04/2023 Hydroxychloroquine 200 MG tablet Take by mouth daily. 04/04/2023 Meloxicam 15 MG tablet Take 1 tablet by mouth daily. 04/04/2023 metFORMIN 500 MG tablet Take by mouth 2 times daily. 04/09/2023 METHOTREXATE PO Take 8 tablets by mouth once a week. 04/04/2023 Misc. Devices Misc by Unknown route. APAP 5-15 cm h2o set up 01/03/23-on [employer] [employer] omeprazole [address] capsule Take 1 capsule by mouth daily. (Patient not taking: Reported on 03/27/2023) 30 capsule 2 Unknown Ondansetron 4 MG Tab Dispersible tablet Take 1 tablet by mouth every 8 hours as needed. (Patient not taking: Reported on 03/27/2023) 30 tablet 2 Unknown oxyCODONE 5 MG/5ML Solution oral solution Take 5 mL by mouth every 6 hours as needed for up to 6 days. (Patient not taking: Reported on 03/27/2023) 120 mL 0 predniSONE 10 MG tablet Take by mouth as needed. More than a month traMADol 50 MG tablet TAKE 1 TABLET FOUR TIMES DAILY NEEDED 04/09/2023 traZODone 100 MG tablet 1 tablet every evening at 6 PM. 04/09/2023 Trulicity 0.75 MG/0.5ML Solution Pen-injector injection INJECT 0.75 MG Weekly 04/04/2023 Allergies Allergen Reactions Not Able To Determine Anaphylaxis Nut allergy Sulfa Antibiotics ALL SULFA BASED DRUGS Cephalexin Hives Latex Hives and Redness Levofloxacin Review of Systems: Ten systems reviewed and found to be negative unless otherwise stated in the history and present illness. PHYSICAL EXAM: Patient Vitals for the past 8 hrs: BP Temp Temp src Pulse Resp SpO2 Height Weight 04/11/23 1600 -- -- -- -- -- -- 1.6 m (5' 2.99 ) 135.2 kg (298 lb) 04/11/23 1551 140/64 -- -- 69 22 99 % -- -- 04/11/23 1530 118/58 -- -- 68 24 96 % -- -- 04/11/23 1500 126/57 -- -- 72 14 96 % -- -- 04/11/23 1430 135/73 -- -- 79 15 96 % -- -- 04/11/23 1400 154/69 -- -- 68 14 98 % -- -- 04/11/23 1345 160/71 -- -- 66 15 98 % -- -- 04/11/23 1330 197/84 -- -- 68 14 97 % -- -- 04/11/23 1315 (!) -- -- 76 12 97 % -- -- 04/11/23 1300 (!) 98.4 F (36.9 C) Temporal 84 17 95 % -- -- 04/11/23 1255 (!) -- -- 81 17 95 % -- -- 04/11/23 1250 -- -- 78 13 96 % -- -- 04/11/23 1245 (!) -- -- 81 14 96 % -- -- 04/11/23 1240 -- -- 83 14 95 % -- -- 04/11/23 1235 (!) -- -- 89 9 97 % -- -- 04/11/23 1230 (!) -- -- 92 12 97 % -- -- 04/11/23 1225 (!) -- -- 93 21 97 % -- -- 04/11/23 1220 (!) -- -- 94 12 97 % -- -- 04/11/23 1215 (!) -- -- 97 17 97 % -- -- 04/11/23 1210 (!) -- -- 96 17 98 % -- -- 04/11/23 1205 (!) -- -- 98 18 98 % -- -- 04/11/23 1200 (!) -- -- 96 14 97 % -- -- 04/11/23 1155 (!) -- -- 97 16 98 % -- -- 04/11/23 1150 -- -- 100 18 98 % -- -- 04/11/23 1145 (!) 217/93 -- -- 103 19 99 % -- -- 04/11/23 1140 (!) 194/91 -- -- 102 17 99 % -- -- 04/11/23 1135 196/86 -- -- 83 17 99 % -- -- 04/11/23 1130 186/85 97.1 F (36.2 C) -- 86 23 95 % -- -- General: Patient Awake. No acute distress. HEENT: Normalcephalic, atraumatic. Pupils equal, round, reactive, to light and accomodation B/L. Bilateral nares patent without obvious drainage. Oral mucosa moist, pink, intact without ulcers or lesions. Neck: No JVD, no thyromegaly, no anterior or posterior lymphadenopathy. Cardiovascular: Regular rate and rhythm, without murmurs, rubs, or gallops. Respiratory: Bilateral Upper and Lower Lobes anterior and posteriorly without wheezes, rales, or rhonchi, diminished. Abdomen: Soft, rounded, non-tender. Bowel sounds present x4 quadrants. No rebound. No organomegaly or masses noted upon deep palpation. Extremities: No edema, clubbing or cyanosis, pulses palpable 2+ distally. Skin: Warm, Dry, Intact. No obvious rashes or lesions noted. Neuro: Patient awake, alert, orientedx3. Cranial nerves 2-12 grossly intact upon seated examination. No focal deficit noted. Diagnostics: CBC Lab Results Component Value Date/Time WBC 8.6 04/11/2023 12:06 PM WBC 5.9 04/11/2023 08:12 AM WBC 7.4 03/27/2023 11:53 AM HGB 13.2 04/11/2023 12:06 PM HGB 13.3 04/11/2023 08:12 AM HGB 11.7 (L) 03/27/2023 11:53 AM HCT 40.3 04/11/2023 12:06 PM HCT 41.3 04/11/2023 08:12 AM HCT 35.5 (L) 03/27/2023 11:53 AM PLATELET 223 04/11/2023 12:06 PM PLATELET 236 04/11/2023 08:12 AM PLATELET 210 03/27/2023 11:53 AM Chemistry Lab Results Component Value Date/Time GLUCOSE 247 (H) 04/11/2023 12:06 PM GLUCOSE 199 (H) 04/11/2023 08:12 AM GLUCOSE 222 (H) 03/27/2023 11:53 AM BUN 12 04/11/2023 12:06 PM BUN 12 04/11/2023 08:12 AM BUN 16 03/27/2023 11:53 AM CREATSERUM 0.73 04/11/2023 12:06 PM CREATSERUM 0.78 04/11/2023 08:12 AM CREATSERUM 0.79 03/27/2023 11:53 AM SODIUM 137 04/11/2023 12:06 PM SODIUM 140 04/11/2023 08:12 AM SODIUM 136 (L) 03/27/2023 11:53 AM POTASSIUM 4.5 04/11/2023 12:06 PM POTASSIUM 4.2 04/11/2023 08:12 AM POTASSIUM 4.3 03/27/2023 11:53 AM CHLORIDE 108 (H) 04/11/2023 12:06 PM CHLORIDE 107 04/11/2023 08:12 AM CHLORIDE 105 03/27/2023 11:53 AM CO2 19 (L) 04/11/2023 12:06 PM CO2 22 04/11/2023 08:12 AM CO2 23 03/27/2023 11:53 AM ALBUMIN 3.8 09/21/2022 11:22 AM CALCIUM 8.6 04/11/2023 12:06 PM CALCIUM 9.0 04/11/2023 08:12 AM CALCIUM 8.9 03/27/2023 11:53 AM PHOSPHORUS 3.5 04/11/2023 12:06 PM MAGNESIUM 2.1 04/11/2023 12:06 PM COAG Lab Results Component Value Date/Time PT 12.5 03/27/2023 11:53 AM INR 0.92 03/27/2023 11:53 AM PTT 26.3 03/27/2023 11:53 AM ABG No results found for: HCO3 , PCO2 , PO2 Other notable labs: Impression and Plan: Principal Problem: Type 2 diabetes mellitus with hyperglycemia (A1C > 6.49): Sliding scale insulin with accu-checks AC&HS, Resume home medications at discharge, Diabetic diet a1c 9.6 Active Problems: Morbid obesity with body mass index of 50 or higher: Diet and lifestyle modification recommended. ART (obstructive sleep apnea)- cpap per home setting. Avoid oversedation. S/P gastric sleeve procedure d/w dr barcenas pod 0. Hypertensive urgency: prn iv labetalol if sys > 160. Monitor vs. No home rx. Metabolic acidosis: noted hyperchloremia. Labs ordered for am. Monitor. Hx of RA. Fu rheumatology. Code Status No Order I personally spent 5 minutes in the management of this patient, the details of my visit are listed in my documentation above. Coleman Moreau BUDGET CONTROLLER completing consultation in collaboration with attending. Please note Portions of this note utilized [employer] software, please excuse any typographical or grammatical errors Associated attestation - Dawit Ferreira DO - 04/11/2023 5:10 PM EDT Patient seen and examined independently. Meds, labs, and radiographs reviewed. +HTN Urgency w/ multiple SBP over 200 - denies ALVAREZ/CP/SOB; Type 2 DM All additional ROS NEG. Mild somnolence post anesthesia HEENT NC/AT PERRLA MM moist w/o ulceration No TM or JVD. Lungs diminished and heart tones regular on exam. Abdo Obese Soft NT/ND w/ BS. No LE edema or rash. No focal deficits noted on exam. SBP 220 - meds adjusted. HBA1C 9.6. SS/I and accu checks added. ART - continuous pulse ox monitoring and avoid sedatives. CPAP use w/ naps and HS. All questions and concerns addressed w/ patient at BS in regard to plan of care. I agree with assessments and plan of care. I personally spent >50% of the total time spent of 20 min on this date's billable encounter including all of the MDM for this encounter. documented in this encounter [facility] 04-11-2023 Nurse Note Patient transferred to [facility] at this time, patient able to transport self over to bed. Vital signs in stable condition. Karen SOTO received report at bedside. Patient bed in lowest position with friend at bedside, call light in reach. [facility] 04-11-2023 Nurse Note Pt arrived to room 3760, oriented to room. Report received from Leslee SOTO. Education provided about water intake, pt verbalized understanding. No further needs voiced. [facility] 04-11-2023 Nurse Note Patient resting quietly in bed, voices an improvement in nausea, lights dimmed per patient request. PO fluid encouraged. [facility] 04-11-2023 Nurse Note Patient transported from PACU back to phase 2, patient is drowsy on 2LNC. Friend is present at bedside. Report received from Amarilis SOTO. [facility] 04-11-2023 Nurse Note Patient transferred to 2 via cart in stable condition. Report given to CHARLES Camilo. Cart left in locked and lowest position with side rails up x2. Snack and call light given to patient. Monitors and alarms on and attached to patient. Patient taken to PACU via cart with this RN and SK[employer] LIFTER BACON. Report given to CHARLES Olmos. OR temp 67.5deg F OR humidity 41% documented in this encounter [facility] 04-11-2023 Nurse Surgical operation note Patient transferred to 2 via cart in stable condition. Report given to CHARLES Camilo. Cart left in locked and lowest position with side rails up x2. Snack and call light given to patient. Monitors and alarms on and attached to patient. [facility] 04-11-2023 Nurse Surgical operation note Patient taken to PACU via cart with this RN and [employer]IFTER BACON. Report given to CHARLES Olmos. [facility] 04-11-2023 Progress note Formatting of t his note might be different from the original. I certify that this patient requires inpatient services at this time. I anticipate the expected length of stay will include at least two midnights. Current treatment plan includes pain and nausea control. Plans for post hospitalization care will be discharge to home. [facility] 04-11-2023 Surgery Postoperative evaluation and management note Operative Report DATE OF SERVICE: 04/11/2023 NAME: Anthony Sawyer CSN: [id number] PRE OP DIAGNOSES: Morbid obesity with DM POST OP DIAGNOSES: Morbid obesity with DM INDICATION FOR PROCEDURE: This patient is a pleasant 57 y.o. female suffering from morbid obesity and its comorbidities. After being seen in the clinic, She was found to be an appropriate candidate for a laparoscopic sleeve gastrectomy. OPERATIONS PERFORMED: Laparoscopic sleeve gastrectomy, robotic assisted, interpretation of ICG for perfusion SURGEON: Carly Barcenas DO DIRECTOR PART: Surgical Staff: Computer Analyst Supervisor: Lucrecia Rogers RN; Jen Crespo RN Scrub Person: Tess Suarez Automatic Steel Tie Adjuster Contact Center Engineer: Sandeep Moore ANESTHESIA: GETA ESTIMATED BLOOD LOSS IN MLS: 20 COMPLICATIONS: None SPECIMEN: stomach PREOPERATIVE NOTE: The contemplated operative procedure, risks, benefits and alternatives to this procedure have been discussed with this patient and/or legal desk representative. The patient and/or legal desk representative acknowledge(s) understanding of the above and consent(s) to the procedure. OPERATIVE PROCEDURE: The patient was given intravenous antibiotics, sequential stockings, subcutaneous heparin in the preoperative area. After informed consent, the patient was transferred to the operating room, placed in a supine position, and underwent general anesthesia. The abdomen was prepped and draped in the usual sterile fashion using ChloraPrep. Next a timeout was obtained that revealed the correct patient, position, and laterality of the procedure. Once this was done, a 1 cm transverse incision was made approximately 15 cm below the xiphoid and approximately 2 cm to the left of the midline. A 5 mm scope was then inserted into the abdomen under direct visualization without difficulty. The abdomen was then insufflated with CO2 to a pressure of 15 mmHg. An angled laparoscope was then inserted and additional ports were placed. 2 left-sided 8 mm trochars were placed under direct visualization. This was then followed by a 12 mm right-sided trocar and another 8 mm air seal trocar. The patient was then placed in 20 of Trendelenburg and the da Melodie robot was docked to the patient in the usual fashion. I then took my position at the surgical consult. The liver was then retracted superiorly medially revealing the anterior border of the no and the freehold liver retractor system was anchored at this point and then to the anterior abdominal wall superiorly and right lateral to provide adequate liver retraction. The calibration tube was then passed by anesthesia into the stomach and the stomach was suctioned. No hiatal hernia was noted. Following this, I measured 6 cm from the pylorus and began to take down the greater curve. I used the vessel sealer to divide the omentum along the greater curvature of the stomach. This was taken from 6 cm proximal of the pylorus to the angle of Hiss. The short gastric vessels were divided during this process. Following this, the calibration tube was secured along the lesser curvature and the 60 mm stapler with a green load was inserted and fired using the calibration tube as a guide. This was followed by a blue load and then the remainder of the sleeve was created with white loads. A leak test was then completed using 100 mL of saline mixed with 8 mL of ICG. No leak was identified. Following this, 2 mL of ICG was injected intravenously and perfusion of the stomach was confirmed. The stomach was then suctioned via the calibration tube which was then removed. Hemostasis was confirmed. The freehold retraction system was then removed from the patient. The specimen was removed through the 12 mm fascial site. It was then passed off to the back table and sent to pathology. The 12 mm fascial site was then closed with a 2-0 Vicryl in a posterior fashion. The robot was then undocked. All skin incisions were then closed with 4-0 Monocryl in a subcuticular fashion and sterile dressings were then applied. The patient tolerated the procedure well. All counts were correct at the end the procedure. The patient was transferred to PACU in stable condition. Carly Barcenas DO 11:11 AM [facility] 04[facility]11-2023 Nurse Surgical operation note OR temp 67.5deg F OR humidity 41% [facility] 03-28-2023 History of Present illness Narrative Subjective Patient ID: Anthony Sawyer is a 57 y.o. female who presents for Follow-up (mo). HPI For surgery mar. Dm bs 170-200+, A1c jumped jumped up we will monitor as she is having bariatric surgery in a week to Art on cpap since December and will monitor for needs as she loses weight Insom- now getting 8 hrs woth med and cpapa, was 3-4 hours and sleep is much more restorative Hyperlipidemia- is on a statin and a prudent diet. Rheumatoid arthritis per the [facility] Review of Systems General-no fatigue weight to within 10 pounds ENT no problems with vision swallowing Cardiac no chest pains palpitations change in exercise tolerance or capacity Pulmonary no cough shortness of breath GI no heartburn or abdominal pain Musculoskeletal multiple joint pains Objective BP 148/80 Pulse 65 Ht 1.6 m (5' 3 ) Wt 134 kg (296 lb) SpO2 98% BMI 52.43 kg/m Physical Exam General: Alert, No acute distress. Appears stated age Eye: Pupils are equal, round and reactive to light, Extraocular movements are intact, Normal conjunctiva. Neck: Supple, Non-tender, No carotid bruit, No jugular venous distention, No lymphadenopathy, No thyromegaly. Respiratory: Lungs are clear to auscultation, Respirations are non-labored, Breath sounds are equal. Cardiovascular: Normal rate, Regular rhythm, No murmur. Gastrointestinal: Soft, Non-tender, No organomegaly. No solid or pulsatile mass Integumentary: Warm, Dry. No concerning lesions on exposed areas Neurologic: Alert, Oriented. Gross and fine motor intact, CN 2-12 intact Psychiatric: Cooperative, Appropriate mood & affect. Assessment/Plan Problem List Items Addressed This Visit Diabetes ([facility]) Relevant Medications Trulicity 0.75 mg/0.5 mL pen injector metFORMIN XR 500 mg 24 hr tablet Other Relevant Orders Hemoglobin A1C Follow Up In Primary Care - Established Hyperlipemia Insomnia - Primary Morbid obesity with body mass index of 50 or higher ([facility]) Rheumatoid arthritis ([facility]) documented in this encounter [facility] Work Phone: 03-22-2023 History of Present illness Narrative SLEEP [place] Score - 3 CPAP/BIPAP/APAP Pressure - 5-15 Neck Circumference - 17 Most Recent Sleep Study - 11/07/22 Oxygen Use - no If so, how many liters and is it PRN, Nocturnal, or continuous? 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 Trazodone PRN Daytime Sleepiness - NO Are you able to take naps during the day - NO If so, how often? Very rarely naps Do you experience tossing or turning at night? NO Restless legs - YES-pt sts every nwo and then If so, what medications are you currently taking or have previously been prescribed for RLS? N/A Are you currently or have you previously been treated for ADHD, Narcolepsy, or Fatigue? - NO If so, what medications are you currently taking or have previously been prescribed for ADHD, Narcolepsy, or Fatigue? N/A Waking with gasping/shortness of breath - NO Difficulty concentrate- - NO Waking with headache- NO Significant weight change- NO Have you ever been on medication management for weight loss, spoke with anyone about weight loss surgery/procedures, or have you had a surgical procedure to help with weight loss? YES currently Bariatric program Pain 0-10- 0 If yes, Location- Upcoming surgeries?- YES Bariatric -pending clearance Has witnessed apnea ( some body told patient that they stop breathing in their sleep) - NO Med Refills (that we prescribe) - no 1 month f/u for machine compliance. RLS, PLMD HPI: SUBJECTIVE: Anthony Sawyer is a 57 y.o. female being seen today for sleep follow up. Most recent sleep testing showed: obstructive sleep apnea (AHI 6.2/hr) with sleep related hypoxia (traecy 82%) and problem is likely to result in a high risk morbidity without treatment. Currently on home APAP at 5-15 cmH2O. Patient most recent PAP machine is from 12/26/22. Patient stated that she is benefiting from the therapy. Her compliance is excellent. Average AHI from the compliance report was 0.9. Patient states improvements with her daytime fatigue or excessive daytime sleepiness with PAP therapy. Current sleep problems/side effects include: None. Patient denies snoring during therapy. Patient denies other sleep concerns today. Patient is having bariatric surgery in the near future and will need clearance today. History and Allergies Allergies Allergen Reactions Sulfa Antibiotics ALL SULFA BASED DRUGS Cephalexin Hives Latex Hives Levofloxacin Past Medical History: Diagnosis Date Arthritis Diabetes mellitus Fibromyalgia Insomnia Past Surgical History: Procedure Laterality Date ANKLE SURGERY Right CYSTECTOMY shoulder KNEE SURGERY Bilateral SEPTOPLASTY Social History Socioeconomic History Marital status: Spouse name: Not on file Number of children: Not on file Years of education: Not on file Highest education level: Not on file Occupational History Not on file Tobacco Use Smoking status: Never Smokeless tobacco: Never Substance and Sexual Activity Alcohol use: Yes Comment: rarely Drug use: Never Sexual activity: Not on file Other Topics Concern Not on file Social History Narrative Not on file Social Determinants of Health Financial Resource Strain: Not on file Food Insecurity: Not on file Transportation Needs: Not on file Physical Activity: Not on file Stress: Not on file Social Connections: Not on file Intimate Partner Violence: Not on file Housing Stability: Not on file History reviewed. No pertinent family history. Vitals: 03/22/23 1139 BP: 128/70 Pulse: 79 Resp: 14 SpO2: 97% Weight: 136.1 kg (300 lb) Height: 1.6 m (5' 3 ) Physical Examination Physical Exam Vitals and nursing note reviewed. Constitutional: General: She is not in acute distress. Appearance: She is well-developed. HENT: Head: Normocephalic and atraumatic. Right Ear: External ear normal. Left Ear: External ear normal. Eyes: General: Right eye: No discharge. Left eye: No discharge. Neck: Vascular: No JVD. Cardiovascular: Rate and Rhythm: Normal rate. Pulses: Normal pulses. Heart sounds: No murmur heard. No friction rub. No gallop. Pulmonary: Effort: Pulmonary effort is normal. No respiratory distress. Breath sounds: No wheezing. Abdominal: General: Bowel sounds are normal. Palpations: Abdomen is soft. Musculoskeletal: General: No deformity. Normal range of motion. Cervical back: Normal range of motion and neck supple. Skin: General: Skin is warm and dry. Neurological: General: No focal deficit present. Mental Status: She is alert and oriented to person, place, and time. Psychiatric: Mood and Affect: Mood normal. Behavior: Behavior normal. Judgment: Judgment normal. SLEEP [place] Score - 3 CPAP/BIPAP/APAP Pressure - 5-15 Neck Circumference - 17 Most Recent Sleep Study - 11/07/22 Oxygen Use - no If so, how many liters and is it PRN, Nocturnal, or continuous? Patient is benefiting from PAP therapy-- DME - N/A Referred by- Dr. 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 Trazodone PRN Daytime Sleepiness - NO Are you able to take naps during the day - NO If so, how often? Very rarely naps Do you experience tossing or turning at night? NO Restless legs - YES-pt sts every nwo and then If so, what medications are you currently taking or have previously been prescribed for RLS? N/A Are you currently or have you previously been treated for ADHD, Narcolepsy, or Fatigue? - NO If so, what medications are you currently taking or have previously been prescribed for ADHD, Narcolepsy, or Fatigue? N/A Waking with gasping/shortness of breath - NO Difficulty concentrate- - NO Waking with headache- NO Significant weight change- NO Have you ever been on medication management for weight loss, spoke with anyone about weight loss surgery/procedures, or have you had a surgical procedure to help with weight loss? YES currently Bariatric program Pain 0-10- 0 If yes, Location- Upcoming surgeries?- YES Bariatric -pending clearance Has witnessed apnea ( some body told patient that they stop breathing in their sleep) - NO Med Refills (that we prescribe) - no 1 month f/u for machine compliance. RLS, PLMD CURRENT MEDICATIONS: Current Outpatient Medications Medication Sig Dispense Refill Atorvastatin 40 MG tablet DULoxetine HCl [address] Particles capsule Ergocalciferol 1.25 MG (91355 UT) capsule Take 1 capsule by mouth once a week for 8 doses. 4 capsule 1 Etanercept (Enbrel) 50 MG/ML Solution Prefilled Syringe injection Folic acid 1 MG tablet Hydroxychloroquine 200 MG tablet Meloxicam 15 MG tablet Take 1 tablet by mouth daily. metFORMIN HCl 500 MG/5ML Solution Methotrexate 2.5 MG/ML oral solution Misc. Devices Misc by Unknown route. APAP 5-15 cm h2o set up 01/03/23-on [facility] [employer] traMADol 50 MG tablet TAKE 1 TABLET FOUR TIMES DAILY NEEDED traZODone 100 MG tablet Trulicity 0.75 MG/0.5ML Solution Pen-injector injection INJECT 0.75 MG Weekly No current facility-administered medications for this visit. Lungs: Clear to auscultation bilaterally. Heart: Regular in rate and rhythm. Abd: Soft and non-distended. Skin: No obvious rashes or cyanosis. Neuro: Grossly non-focal examination. MS: No joint erythema/edema. ROS Reviewed. Interpretation of sleep study and compliance report form was completed today and reviewed together with the patient during this visit. ASSESSMENT & PLAN: * ART * Sleep Related Hypoxia * Overweight * Reviewed CPAP Compliance Form * Sx Clearance * Patient was advised to continue with positive pressure therapy at home. * Patient was advised to adhere to a regular sleep hygiene habits. * Reinforced: adverse consequences of ART, compliance, wt loss, side sleeping if feasible, sleep hygiene (and avoid/minimize alcohol, sedative/respiratory depressant meds, nicotine/smoking cessation: quit), not driving/operating machinery while sleepy. * Patient will follow up in 4 months post weight loss * New Supplies Ordered Patient informed of importance of compliance with upcoming surgery Patient informed of importance of use for healing process with upcoming surgery Patient is cleared for bariatric surgery from a sleep apnea standpoint Discussed with patient: the physiology of Sleep Apnea, medical conditions associated with sleep apnea (DM, HTN, CAD, Depression, Stroke, Headaches, CHF, Heart Dysrhythmias) and treatment options. Advised patient to avoid activities that could harm self or others when tired/sleep, including driving and/or operating heavy machinery. Depending on polysomnography results: - Order PAP titration based on insurance requirements, if already on therapy continue therapy, or if symptomatic with high AHI complete another titration. - Will start/continue PAP therapy after results of PAP titration - I will have prescription sent to a [employer] company of choice- who will be calling patient in approximately next 1-2 weeks. - Patient should be eligible for new supplies approximately every 3-6 months, depending on your insurance coverage, [employer] company will inform patient of coverage - If patient mask does not fit well, contact [employer] before 30 days are up to get a new mask without an additional charge - Insurance requires regular usage and periodic office follow ups for PAP therapy to continue to cover supplies Insurance Requirements: - Your insurance requires a [id number] follow up visit within 31-90 days period after starting PAP therapy. - Your insurance requires compliance with PAP therapy, which is at least 4 hours per night for 70% of the time. This must be done over at least 30 day period and must occur within the intial 31-90 day period after starting PAP therapy. - Your insurance also requires at least a yearly follow up to continue to pay for PAP therapy and supplies. A total of 30 minutes were spent at this encounter, and this includes obtaining and/or reviewing separately obtained history , performing exam, review of previous tests and results, independently interpreting results of tests and communicating results to the patient/family/caregiver, ordering medications/tests/procedures, counseling the patient and/family on plan of care, referring/communicating with other health career portals teacher, as well as documenting the clinical information in the EHR. This includes face to face time and preparing to see the patient (review of tests) I personally reviewed selected chart notes, results, interpreted tests, imaging today before seeing the pt; reviewed and discussed w/ pt, questions answered. Portions of this chart were created using [email or web address] electronic dictation. Please excuse any typographical or grammatical errors contained herein as a result. Some Elements copied from previous notes. I have updated where appropriate, and all reflect current medical decision making from today's encounter. RICARDO Tilley documented in this encounter [facility] [employer] 02-23-2023 History of Present illness Narrative SLEEP [place] Score - 6 CPAP/BIPAP/APAP Pressure - 5-15 Neck Circumference - 17 Most Recent Sleep Study - 11/07/22 Oxygen Use - no If so, how many liters and is it PRN, Nocturnal, or continuous? Patient is benefiting from PAP therapy-- DME - N/A Referred by- Dr. 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 Trazodone PRN Daytime Sleepiness - NO Are you able to take naps during the day - NO If so, how often? Very rarely naps Do you experience tossing or turning at night? NO Restless legs - NO If so, what medications are you currently taking or have previously been prescribed for RLS? N/A Are you currently or have you previously been treated for ADHD, Narcolepsy, or Fatigue? - NO If so, what medications are you currently taking or have previously been prescribed for ADHD, Narcolepsy, or Fatigue? N/A Waking with gasping/shortness of breath - NO Difficulty concentrate- - NO Waking with headache- NO Significant weight change- NO Have you ever been on medication management for weight loss, spoke with anyone about weight loss surgery/procedures, or have you had a surgical procedure to help with weight loss? YES currently Bariatric program Pain 0-10- 0 If yes, Location- Upcoming surgeries?- YES Bariatric Has witnessed apnea ( some body told patient that they stop breathing in their sleep) - NO Med Refills (that we prescribe) - no HPI: SUBJECTIVE: Anthony Sawyer is a 57 y.o. female being seen today for sleep follow up. Most recent sleep testing showed: obstructive sleep apnea (AHI 6.2/hr) with sleep related hypoxia (tracey 82%) and problem is likely to result in a high risk morbidity without treatment. Currently on home APAP at 5-15 cmH2O. Patient most recent PAP machine is from 12/26/22. Patient stated that she is benefiting from the therapy. Her compliance is poor as she though she only needed to wear for 31 days and then stop wearing. Average AHI from the compliance report was 0.6. Patient states improvements with her daytime fatigue or excessive daytime sleepiness with PAP therapy. Current sleep problems/side effects include: None. Patient denies snoring during therapy. Patient denies other sleep concerns today. Patient is having bariatric surgery in the near future and will need clearance History and Allergies Allergies Allergen Reactions Sulfa Antibiotics ALL SULFA BASED DRUGS Cephalexin Hives Latex Hives Levofloxacin Past Medical History: Diagnosis Date Arthritis Diabetes mellitus Fibromyalgia Insomnia Past Surgical History: Procedure Laterality Date ANKLE SURGERY Right CYSTECTOMY shoulder KNEE SURGERY Bilateral SEPTOPLASTY Social History Socioeconomic History Marital status: Spouse name: Not on file Number of children: Not on file Years of education: Not on file Highest education level: Not on file Occupational History Not on file Tobacco Use Smoking status: Never Smokeless tobacco: Never Substance and Sexual Activity Alcohol use: Yes Comment: rarely Drug use: Never Sexual activity: Not on file Other Topics Concern Not on file Social History Narrative Not on file Social Determinants of Health Financial Resource Strain: Not on file Food Insecurity: Not on file Transportation Needs: Not on file Physical Activity: Not on file Stress: Not on file Social Connections: Not on file Intimate Partner Violence: Not on file Housing Stability: Not on file No family history on file. Vitals: 02/23/23 1547 BP: 140/86 Pulse: 77 SpO2: 91% Weight: 133.8 kg (295 lb) Height: 1.6 m (5' 3 ) Physical Examination Physical Exam Vitals and nursing note reviewed. Constitutional: General: She is not in acute distress. Appearance: She is well-developed. HENT: Head: Normocephalic and atraumatic. Right Ear: External ear normal. Left Ear: External ear normal. Eyes: General: Right eye: No discharge. Left eye: No discharge. Neck: Vascular: No JVD. Cardiovascular: Rate and Rhythm: Normal rate. Pulses: Normal pulses. Heart sounds: No murmur heard. No friction rub. No gallop. Pulmonary: Effort: Pulmonary effort is normal. No respiratory distress. Breath sounds: No wheezing. Abdominal: General: Bowel sounds are normal. Palpations: Abdomen is soft. Musculoskeletal: General: No deformity. Normal range of motion. Cervical back: Normal range of motion and neck supple. Skin: General: Skin is warm and dry. Neurological: General: No focal deficit present. Mental Status: She is alert and oriented to person, place, and time. Psychiatric: Mood and Affect: Mood normal. Behavior: Behavior normal. Judgment: Judgment normal. SLEEP [place] Score - 6 CPAP/BIPAP/APAP Pressure - 5-15 Neck Circumference - 17 Most Recent Sleep Study - 11/07/22 Oxygen Use - no If so, how many liters and is it PRN, Nocturnal, or continuous? Patient is benefiting from PAP therapy-- DME - N/A Referred by- Dr. 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 Trazodone PRN Daytime Sleepiness - NO Are you able to take naps during the day - NO If so, how often? Very rarely naps Do you experience tossing or turning at night? NO Restless legs - NO If so, what medications are you currently taking or have previously been prescribed for RLS? N/A Are you currently or have you previously been treated for ADHD, Narcolepsy, or Fatigue? - NO If so, what medications are you currently taking or have previously been prescribed for ADHD, Narcolepsy, or Fatigue? N/A Waking with gasping/shortness of breath - NO Difficulty concentrate- - NO Waking with headache- NO Significant weight change- NO Have you ever been on medication management for weight loss, spoke with anyone about weight loss surgery/procedures, or have you had a surgical procedure to help with weight loss? YES currently Bariatric program Pain 0-10- 0 If yes, Location- Upcoming surgeries?- YES Bariatric Has witnessed apnea ( some body told patient that they stop breathing in their sleep) - NO Med Refills (that we prescribe) - no CURRENT MEDICATIONS: Current Outpatient Medications Medication Sig Dispense Refill Atorvastatin 40 MG tablet DULoxetine HCl [address] Particles capsule Etanercept (Enbrel) 50 MG/ML Solution Prefilled Syringe injection Folic acid 1 MG tablet Hydroxychloroquine 200 MG tablet Meloxicam 15 MG tablet Take 1 tablet by mouth daily. metFORMIN HCl 500 MG/5ML Solution Methotrexate 2.5 MG/ML oral solution Misc. Devices Misc by Unknown route. APAP 5-15 cm h2o set up 01/03/23-on [facility] [employer] traMADol 50 MG tablet TAKE 1 TABLET FOUR TIMES DAILY NEEDED traZODone 100 MG tablet Trulicity 0.75 MG/0.5ML Solution Pen-injector injection INJECT 0.75 MG Weekly Ergocalciferol 1.25 MG (49262 UT) capsule Take 1 capsule by mouth once a week for 8 doses. 4 capsule 1 No current facility-administered medications for this visit. Lungs: Clear to auscultation bilaterally. Heart: Regular in rate and rhythm. Abd: Soft and non-distended. Skin: No obvious rashes or cyanosis. Neuro: Grossly non-focal examination. MS: No joint erythema/edema. ROS Reviewed. Interpretation of sleep study and compliance report form was completed today and reviewed together with the patient during this visit. ASSESSMENT & PLAN: * ART * Sleep Related Hypoxia * Overweight * Reviewed CPAP Compliance Form * Patient was advised to continue with positive pressure therapy at home. * Patient was advised to adhere to a regular sleep hygiene habits. * Reinforced: adverse consequences of ART, compliance, wt loss, side sleeping if feasible, sleep hygiene (and avoid/minimize alcohol, sedative/respiratory depressant meds, nicotine/smoking cessation: quit), not driving/operating machinery while sleepy. * Patient will follow up in 3 weeks for surgery clearance * New Supplies Ordered Discussed with patient: the physiology of Sleep Apnea, medical conditions associated with sleep apnea (DM, HTN, CAD, Depression, Stroke, Headaches, CHF, Heart Dysrhythmias) and treatment options. Advised patient to avoid activities that could harm self or others when tired/sleep, including driving and/or operating heavy machinery. Depending on polysomnography results: - Order PAP titration based on insurance requirements, if already on therapy continue therapy, or if symptomatic with high AHI complete another titration. - Will start/continue PAP therapy after results of PAP titration - I will have prescription sent to a [employer] company of choice- who will be calling patient in approximately next 1-2 weeks. - Patient should be eligible for new supplies approximately every 3-6 months, depending on your insurance coverage, [employer] company will inform patient of coverage - If patient mask does not fit well, contact [employer] before 30 days are up to get a new mask without an additional charge - Insurance requires regular usage and periodic office follow ups for PAP therapy to continue to cover supplies Insurance Requirements: - Your insurance requires a [id number] follow up visit within 31-90 days period after starting PAP therapy. - Your insurance requires compliance with PAP therapy, which is at least 4 hours per night for 70% of the time. This must be done over at least 30 day period and must occur within the intial 31-90 day period after starting PAP therapy. - Your insurance also requires at least a yearly follow up to continue to pay for PAP therapy and supplies. A total of 30 minutes were spent at this encounter, and this includes obtaining and/or reviewing separately obtained history , performing exam, review of previous tests and results, independently interpreting results of tests and communicating results to the patient/family/caregiver, ordering medications/tests/procedures, counseling the patient and/family on plan of care, referring/communicating with other health career portals teacher, as well as documenting the clinical information in the EHR. This includes face to face time and preparing to see the patient (review of tests) I personally reviewed selected chart notes, results, interpreted tests, imaging today before seeing the pt; reviewed and discussed w/ pt, questions answered. Portions of this chart were created using [email or web address] electronic dictation. Please excuse any typographical or grammatical errors contained herein as a result. Some Elements copied from previous notes. I have updated where appropriate, and all reflect current medical decision making from today's encounter. RICARDO Tilley documented in this encounter [facility] 12-26-2022 History of Present illness Narrative Subjective Patient ID: Anthony Sawyer is a 57 y.o. female who presents for Follow-up (3 mo rev labs). HPI Took pred for flareof arthritis december 04-, at 10 mg wt up, got cpap and in 31 d will clear for surgery. Dm 176-202 in am. A1c from [facility] not found. We will track it down and phoned patient to discuss Review of Systems Denies chest pains palpitations cough shortness of breath heartburn or abdominal pain Objective BP 130/80 Pulse 69 Ht 1.6 m (5' 3 ) Wt 132 kg (290 lb 3.2 oz) SpO2 92% BMI 51.41 kg/m Physical Exam Heart regular without murmur lungs clear to auscultation no edema in the extremities Assessment/Plan Problem List Items Addressed This Visit Endocrine/Metabolic Diabetes (CMS/HCC) - Primary Relevant Orders Follow Up In Primary Care Morbid obesity with body mass index of 50 or higher (CMS/HCC) Relevant Orders Follow Up In Primary Care Other Rheumatoid arthritis (CMS/HCC) Relevant Orders Follow Up In Primary Care documented in this encounter [facility] Work Phone: 12-05-2022 History of Present illness Narrative OUTPATIENT BARIATRIC NUTRITION: PRE-OP SURGERY CLEARANCE Referring Provider: Self, Self The patient was cleared for bariatric surgery from a nutrition perspective. Nutrition Assessment Anthropometrics: Ht Readings from Last 1 Encounters: 09/14/22 1.6 m (5' 3 ) Wt Readings from Last 10 Encounters: 12/05/22 122.6 kg (270 lb 3.2 oz) 11/14/22 127 kg (280 lb) 10/24/22 127.9 kg (282 lb) 10/03/22 125.2 kg (276 lb) 09/14/22 129.5 kg (285 lb 6.4 oz) 09/12/22 126.6 kg (279 lb) 09/08/22 127.9 kg (282 lb) 08/24/22 128.2 kg (282 lb 9.6 oz) 08/24/22 128.2 kg (282 lb 9.6 oz) Reasnor body weight: 52.4 kg (115 lb 8.3 oz) Adjusted ideal body weight: 80.5 kg (177 lb 6.3 oz) Body mass index is 47.86 kg/m . Diet Recall: Meal What Time Breakfast 2 scrambled eggs 1/2 banana and piece of dry toast 7 30 am Snack Low fat cymro cheese and 3 ritz cracks (1-2 oz cheese) 10 am Lunch 2 oz of chicken, 1/2 cup of green beans, 1/2 banana 1 pm Snack Peanut butter (on 3 ritz crackers) and small apple 3 pm Dinner 2 oz salmon asparagus 5 pm Snack Fluids Water (at least 64 oz) NA Current exercise: Pt is exercising 4 days/week for 30 minutes. (treadmill in the morning before work). Ms. Anthony Sawyer is a 56 y.o. female here in preparation for weight loss surgery, LSG. This is visit #6. Pt has completed bariatric nutrition education classes 1-4. Today's visit is to evaluate pt's readiness for surgery from a nutrition standpoint, to individualize an 800 calorie meal plan and answer any nutrition related questions the pt may have.Pt has made great dietary changes and I see great success in patient after surgery from a nutrition standpoint. She has been measuring all of her portions and being very detailed in tracking her intakes. Her meal plan was very detailed and she has started buying items like high protein bone brother for after surgery. She understands how to take her vitamins and her vitamin plan given meets the ASMBS Guidelines. Pt studied extremely hard for the test and did not miss one question. She had a lot of questions for today's appointment that had to due with what her friends were saying who had the surgery years ago and these were addressed. Pt verbalized her understanding of the liver shrink diet and will reach out with any questions/concerns. Pt was given a sample of bariatric pal mv one chewable (x30) orange citrus lot#[id number] exp 12/20 Pt was given a sample of bariatric advantage calicum citrate 500 mg (20x) assorted fruit flavor lot#[id number] exp 06/21 Nutrition Goals: 1. Eat breakfast, lunch, dinner, and 2-3 snacks (5-6 small meals/day): MET 2. Consume adequate protein: MET 3. Limit sugar & sugar alcohols to no more than 10 grams per meal/snack: MET 4. Consume 64 oz of hydrating fluids/day: MET 5. Eliminate carbonation, straws, caffeine, and alcohol: MET 6. Eating off smaller plates and bowls: MET 7. Chew your food 20-30 times per bite when needed or until consistent texture: MET 8. Meals should last 20-30 minutes: MET 9. Separate drinking and eating by 30 minutes: MET 10. Eat in this order: protein first, vegetables and fruits second, and whole grains last: MET 11. Put your utensil or handheld food down in between bites: MET 12. Begin physical activity including cardio and strength training: MET Patient is able to verbalize: Pre-sx Liver Shrink Diet - start 2 weeks prior to surgery date All nutrition goals listed above Information/education covered during previous nutrition appointments The 5 phases of the bariatric diet Homework was provided and phase 2 and 3 sample meal plans were adequate Use of protein shakes for meal replacement and for 2-week full liquid diet phase Required vitamin & mineral supplements (life long) and how to properly take them Iron and calcium cannot be taken together (>2 hours apart) Bariatric multivitamin recommendations Generic multivitamins or prenatals need to be taken 2-4x the recommended dose to meet bariatric needs Pt plans to take Bariatric pal mv one with capsule and calcium citrate 600 mg BID. Paper test score: 100% (must be 80% or higher) The patient has been thoroughly evaluated and educated on good dietary practices. Patient is able to demonstrate post-op diet advancement/portion control using food models. Patient is capable of following these guidelines pre-and post-surgically. I do anticipate post op compliance. From a nutrition standpoint, the patient is cleared for weight loss surgery. PMH: has a past medical history of Arthritis, Diabetes mellitus, Fibromyalgia, and Insomnia. PSH: has a past surgical history that includes septoplasty; cystectomy; knee surgery (Bilateral); and ankle surgery (Right). Nutrition-Related Labs: Lab Results Component Value Date GLUCOSE 131 (H) 09/21/2022 HGBA1C 7.7 (H) 09/21/2022 SODIUM 133 (L) 09/21/2022 POTASSIUM 4.1 09/21/2022 CALCIUM 8.9 09/21/2022 ALBUMIN 3.8 09/21/2022 BUN 15 09/21/2022 CREATSERUM 0.79 09/21/2022 HGB 13.0 09/21/2022 HCT 40.8 09/21/2022 IRON 71 09/21/2022 B12 261 09/21/2022 [id number] 10.7 (L) 09/21/2022 FOLATE 10.9 09/21/2022 BP Readings from Last 3 Encounters: 09/14/22 136/82 09/08/22 137/78 08/24/22 130/88 Nutrition Diagnosis NB-1.1 Food and nutrition-related knowledge deficit related to pre-bariatric sx diet as evidenced by scheduled for bariatric sx. Nutrition Intervention Nutrition Goals: 1. Eat 5-6 small meals/snacks per day (breakfast, lunch, dinner, and 2-3 snacks) 2. Consume adequate protein daily 3. Limit all sugar + sugar alcohols to no more than 10 grams per meal/snack 4. Drink 64+ oz of hydrating fluid/day 5. Eliminate carbonation, straws, caffeine, and alcohol 6. Eat off smaller plates and bowls 7. Take dime sized bites and chew food 20-30x per bite, or until it is a consistent texture 8. Meals need to last at least 20-30 minutes. Stop eating once you feel full 9. Separate food and fluids by 30 minutes. Do not drink with meals 10. Eat protein first, vegetables and fruits second, and whole grains last 11. Begin physical activity as tolerated. Goal of 150-300 minutes of moderate physical activity per week with 2+ days of strength or resistance training included Monitoring & Evaluation CLEARED 1. 1 month post-op appointment to be scheduled with a Registered Dietitian 2. Liver Shrink Diet will be started 2 weeks prior to surgery date 3. Progress with nutrition goals and recommendations will be tracked at each follow up with a dietitian Time spent with pt: 45 minutes DONNIE Syed Registered Dietitian, Licensed Dietitian 12/05/22 documented in this encounter [facility] 11-07-2022 History of Present illness Narrative The patient arrived @ 14:20. Patient was instructed on Home Study Equipment. Questions were answered and patient voiced understanding. The following is scanned to this encounter Test Data/Misc documented in this encounter [facility] 10-24-2022 History of Present illness Narrative OUTPATIENT BARIATRIC NUTRITION EDUCATION: LESSON 3 Referring Provider: Self, Self Nutrition Assessment Anthropometrics: Ht Readings from Last 1 Encounters: 09/14/22 1.6 m (5' 3 ) Wt Readings from Last 5 Encounters: 10/24/22 127.9 kg (282 lb) 10/03/22 125.2 kg (276 lb) 09/14/22 129.5 kg (285 lb 6.4 oz) 09/12/22 126.6 kg (279 lb) 09/08/22 127.9 kg (282 lb) Reasnor body weight: 52.4 kg (115 lb 8.3 oz) Adjusted ideal body weight: 82.6 kg (182 lb 1.8 oz) Body mass index is 49.95 kg/m . Ms. Anthony Sawyer is a 56 y.o. female here in preparation for weight loss surgery. Pt did not fill out her Survey until after today's lesson. It seems she filled it out based on what she ate today. Due to patient not following directions and having little detail in her dietary recall. I can't assess if she is compliant with all nutrition goals at thie time. Pt should try to add strength training to her exercise routine and increase her exercise as tolerated. Pt will reach out with any questions/concerns. Class type: Zoom call 1:1 Diet Recall: Meal What Time Breakfast 3 eggs scrambled 1/2 banana Snack 1/2 cup of cottage cheese Lunch Snack Dinner Snack Fluids 64 oz water. NA Current exercise: Pt is exercising 2 days/week for 30 minutes. (treadmill) Nutrition Goals: 1. Eat breakfast, lunch, dinner, and 2-3 snacks (5-6 small meals/day): Not MET 2. Consume adequate protein: Not MET 3. Limit sugar to no more than 10 grams per meal/snack: MET 4. Consume 64 oz of hydrating fluids/day: MET 5. Eliminate carbonation, straws, caffeine, and alcohol: MET 6. Eating off smaller plates and bowls: MET 7. Chew your food 20-30 times per bite when needed: MET 8. Meals should last 20-30 minutes: MET 9. Separate drinking and eating by 30 minutes: MET 10. Eat in this order: protein first, vegetables and fruits second, and whole grains last: MET 11. Put your utensil or handheld food down in between bites: MET 12. Begin physical activity including cardio and strength training: MET Pt was educated on the following topics: Fats and Dining Out. Discussed: Types of fat: unsaturated and saturated Tips on making healthy choices while eating out Continue with adequate well spaced protein Continue with eating 5-6x/day Continue with a inimum 64 oz water intake Importance engaging in regularly scheduled physical activity Nutrition Diagnosis NB-1.1 Food and nutrition related knowledge deficit related to fats and dining out as it relates to bariatric surgery as evidenced by pt new to bariatric program. Nutrition Intervention Nutrition Goals: 1. Eat 5-6 small meals/snacks per day (breakfast, lunch, dinner, and 2-3 snacks) 2. Consume adequate protein daily 3. Limit all sugar + sugar alcohols to no more than 10 grams per meal/snack 4. Drink 64+ oz of hydrating fluid/day 5. Eliminate carbonation, straws, caffeine, and alcohol 6. Eat off smaller plates and bowls 7. Take dime sized bites and chew food 20-30x per bite, or until it is a consistent texture 8. Meals need to last at least 20-30 minutes. Stop eating once you feel full 9. Separate food and fluids by 30 minutes. Do not drink with meals 10. Eat protein first, vegetables and fruits second, and whole grains last 11. Begin physical activity as tolerated. Goal of 150-300 minutes of moderate physical activity per week with 2+ days of strength or resistance training included Monitoring & Evaluation 1. Pt will complete all nutrition classes prior to final nutrition appointment 2. Progress towards nutrition goals and weight is tracked at each nutrition class or follow up appointment 3. All nutrition goals will be met prior to final nutrition appointment in order to receive dietitian clearance to have bariatric surgery Time spent with pt: 33 minutes DONNIE Syed Registered Dietitian, Licensed Dietitian 10/24/22 documented in this encounter [facility] 10-09-2022 History of Present illness Narrative Bariatric Feedback Session Name: Anthony Sawyer Date: 10/09/2022 Time in: 1012 Time out: 1043 Length of session: 31 minutes This psychological testing feedback session is correlated to DOS 09/21/2022, the date of the original evaluation and testing. Note: Met with Anthony Sawyer to discuss psychological testing, the bariatric evaluation and recommendations. A review of the most recent nutrition visit suggests pt has quite a bit of work to do with them. Lesson 2. Pt feels she is making progress on nutritionin guidelines. Has stopped the diet coke and coffee. Has looked up learned and practiced meditation, journaling and yoga. These incorporate deep breathing. Joined gym and has attended twice. Also treadmilll 3 times per week, 30-45 minutes. Plan: Anthony Silverio is cleared for bariatric surgery from a psychological perspective. Abhishek Quiroz PsyD documented in this encounter [facility] 10-03-2022 History of Present illness Narrative OUTPATIENT BARIATRIC NUTRITION EDUCATION: LESSON 2 Referring Provider: Self, Self Nutrition Assessment Anthropometrics: Ht Readings from Last 1 Encounters: 09/14/22 1.6 m (5' 3 ) Wt Readings from Last 5 Encounters: 10/03/22 125.2 kg (276 lb) 09/14/22 129.5 kg (285 lb 6.4 oz) 09/12/22 126.6 kg (279 lb) 09/08/22 127.9 kg (282 lb) 08/24/22 128.2 kg (282 lb 9.6 oz) Reasnor body weight: 52.4 kg (115 lb 8.3 oz) Adjusted ideal body weight: 81.5 kg (179 lb 11.4 oz) Body mass index is 48.89 kg/m . Ms. Anthony Sawyer is a 56 y.o. female here in preparation for weight loss surgery. Pt and I discussed items she needs to continue working on throughout this process. Pt is consuming 2 different sources of caffeine , and needs to work on smaller more frequent portions throughout the day. Pt will continue being more mindful when she is eating by slowing down and chewing her food down to a puree consistentcy. Pt will need to find a form of physical activity she enjoys and tolerates to begin adopting this routine and habit. Pt was encouraged to continue working on these recommendations and reach out with any questions/concerns. Class type: Zoom call 1:1 Diet Recall: Meal What Time Breakfast 2 scrambled eggs, 1 piece of dry toast, 16 oz coffee with sugar free creamers Snack Lunch Snack String cheese, 1 hard boiled egg Dinner Spinach salad which had sliced hard boiled egg, crumbled blue cheese, real dennis bits, villalba tomatoes and red onion, with hot dennis dressing Snack Fluids 48 oz water, 16 oz coffee with creamer, 20 oz diet coke. NA Current exercise: Pt is not exercising. Nutrition Goals: 1. Eat breakfast, lunch, dinner, and 2-3 snacks (5-6 small meals/day): Not MET 2. Consume adequate protein: Not MET 3. Limit sugar to no more than 10 grams per meal/snack: MET 4. Consume 64 oz of hydrating fluids/day: Not MET 5. Eliminate carbonation, straws, caffeine, and alcohol: Not MET 6. Eating off smaller plates and bowls: MET 7. Chew your food 20-30 times per bite when needed: Not MET 8. Meals should last 20-30 minutes: MET 9. Separate drinking and eating by 30 minutes: Not MET 10. Eat in this order: protein first, vegetables and fruits second, and whole grains last: MET 11. Put your utensil or handheld food down in between bites: MET 12. Begin physical activity including cardio and strength training: Not MET Pt was educated on the following topics: Vitamins, Minerals and Protein. Information discussed: Role of protein in the body Protein needs for men and women Adequate well spaced protein Using protein shakes to ensure adequate protein Vitamin and mineral needs after sx Importance engaging in regularly scheduled physical activity Nutrition Diagnosis NB-1.1 Food and nutrition related knowledge deficit related to vitamins, minerals, and protein needs post-bariatric surgery as evidenced by pt new to bariatric program. Nutrition Intervention Nutrition Goals: 1. Eat 5-6 small meals/snacks per day (breakfast, lunch, dinner, and 2-3 snacks) 2. Consume adequate protein 3. Limit all sugar + sugar alcohols to no more than 10 grams per meal/snack 4. Drink 64+ oz of hydrating fluid/day 5. Eliminate carbonation, straws, caffeine, and alcohol 6. Eat off smaller plates and bowls 7. Take dime sized bites and chew food 20-30x per bite, or until it is a consistent texture 8. Meals need to last at least 20-30 minutes. Stop eating once you feel full 9. Separate food and fluids by 30 minutes. Do not drink with meals 10. Eat protein first, vegetables and fruits second, and whole grains last 11. Begin physical activity as tolerated. Goal of 150-300 minutes of moderate physical activity per week with 2+ days of strength or resistance training included Monitoring & Evaluation 1. Pt will complete all nutrition classes prior to final nutrition appointment 2. Progress towards nutrition goals and weight is tracked at each nutrition class or follow up appointment 3. All nutrition goals will be met prior to final nutrition appointment in order to receive dietitian clearance to have bariatric surgery Time spent with pt: 46 minutes DONNIE Syed Registered Dietitian, Licensed Dietitian 03/07/23 documented in this encounter [facility] 09-12-2022 History of Present illness Narrative OUTPATIENT BARIATRIC NUTRITION EDUCATION: LESSON 1 Referring Provider: Self, Self Nutrition Assessment Anthropometrics: Ht Readings from Last 1 Encounters: 09/08/22 1.6 m (5' 3 ) Wt Readings from Last 5 Encounters: 09/12/22 126.6 kg (279 lb) 09/08/22 127.9 kg (282 lb) 08/24/22 128.2 kg (282 lb 9.6 oz) 08/24/22 128.2 kg (282 lb 9.6 oz) Reasnor body weight: 52.4 kg (115 lb 8.3 oz) Adjusted ideal body weight: 82.1 kg (180 lb 14.6 oz) Body mass index is 49.42 kg/m . Ms. Anthony Sawyer is a 56 y.o. female here in preparation for weight loss surgery. Today was pt first nutritional course. Pt has already begun working lolis nutritional guidelines for the SG and has been eating smaller more frequent portions. Pt has also been trying to add walking more into her daily routine and slowing down at her meal times. Pt will try to add a source of protein to each feeding to ensure she is hitting her daily goals. She will also continue to slowly wean off caffeine and find a form of strength training she enjoys. Pt was encouraged to reach out with any questions/concerns. Class type: In-person 1:1 Diet Recall: Meal What Time Breakfast Egg and 1 piece of toast 10 30 am Snack 2 clementines 11 30 am Lunch Salad (Lettuce, carrots, celery, cucumbers, sliced up ham, tomatoes, onion, hard boiled egg) used skinny girl raspberry vinaigrette for dressing. 3 pm Snack 1 handful of grapes 5 pm Dinner Grilled cheese 7 30 pm Snack Fluids Water (64 oz) and 2 cups of coffee in the morning(sugar free slovenian vanilla creamer) NA Current exercise: Pt is exercising 3-5 days/week for 30-45 minutes. (walking outside) Nutrition Goals: 1. Eat breakfast, lunch, dinner, and 2-3 snacks (5-6 small meals/day): MET 2. Consume adequate protein: Not MET 3. Limit sugar to no more than 10 grams per meal/snack: MET 4. Consume 64 oz of hydrating fluids/day: MET 5. Eliminate carbonation, straws, caffeine, and alcohol: Not MET 6. Eating off smaller plates and bowls: Not MET 7. Chew your food 20-30 times per bite when needed: MET 8. Meals should last 20-30 minutes: MET 9. Separate drinking and eating by 30 minutes: Not MET 10. Eat in this order: protein first, vegetables and fruits second, and whole grains last: MET 11. Put your utensil or handheld food down in between bites: MET 12. Begin physical activity including cardio and strength training: MET (Discussed importance of strength training) Pt was educated on the following topics: Carbohydrates and Fluid. Discussed and encouraged the following: Eat 3 meals per day, including breakfast Limit snacks/nibbles to 3 per day Eliminate simple sugars Drink at least 64 ounces of no-calorie fluids daily Begin regular physical activity Eliminate carbonate beverages Eliminate caffeine Eliminate alcohol Don t drink with meals Eating protein first, then vegetables and fruit and whole grains last Put your fork down between bites Stop eating when no longer hungry Eating complex carbohydrates Using small plates, bowls and cups Using baby spoons an forks to encourage small bites Nutrition Diagnosis NB-1.1 Food and nutrition-related knowledge deficit related to carbohydrate and fluid needs after bariatric sx as evidenced by pt new to bariatric program. Nutrition Intervention Nutrition Goals: 1. Eat 5-6 small meals/snacks per day (breakfast, lunch, dinner, and 2-3 snacks) 2. Consume adequate protein 3. Limit all sugar + sugar alcohols to no more than 10 grams per meal/snack 4. Drink 64+ oz of hydrating fluid/day 5. Eliminate carbonation, straws, caffeine, and alcohol 6. Eat off smaller plates and bowls 7. Take dime sized bites and chew food 20-30x per bite, or until it is a consistent texture 8. Meals need to last at least 20-30 minutes. Stop eating once you feel full 9. Separate food and fluids by 30 minutes. Do not drink with meals 10. Eat protein first, vegetables and fruits second, and whole grains last 11. Begin physical activity as tolerated. Goal of 150-300 minutes of moderate physical activity per week with 2+ days of strength or resistance training included Monitoring & Evaluation 1. Pt will complete all nutrition classes prior to final nutrition appointment 2. Progress towards nutrition goals and weight is tracked at each nutrition class or follow up appointment 3. All nutrition goals will be met prior to final nutrition appointment in order to receive dietitian clearance to have bariatric surgery Time spent with pt: 50 minutes DONNIE Syed Registered Dietitian, Licensed Dietitian 09/12/22 documented in this encounter [facility] 09-08-2022 History and physical note Bariatric/General Surgery H&P 09/08/2022 7:50 AM Anthony Sawyer [id number] Anthony Sawyer is a 56 y.o. year old female with morbid obesity and GERD. she presents today for endoscopic evaluation of GERD in preparation for bariatric surgery. PAST MEDICAL HISTORY: Past Medical History: Diagnosis Date Arthritis Diabetes mellitus PAST SURGICAL HISTORY: Past Surgical History: Procedure Laterality Date ANKLE SURGERY Right CYSTECTOMY shoulder KNEE SURGERY Bilateral SEPTOPLASTY FAMILY HISTORY: No family history on file. SOCIAL HISTORY: Social History Tobacco Use Smoking status: Never Smokeless tobacco: Never Substance Use Topics Alcohol use: Yes Comment: rarely Drug use: Never MEDICATIONS: Prior to Admission Medications: Current Outpatient Medications Medication Sig Last Dose Start Date End Date Authorizing Provider DULoxetine HCl [address] Particles capsule No dose, route, or frequency recorded. 09/07/2022 Historical Provider Etanercept (Enbrel) 50 MG/ML Solution Prefilled Syringe injection No dose, route, or frequency recorded. Past Week Historical Provider Meloxicam 15 MG tablet 15 mg, Oral, DAILY 09/07/2022 05/25/22 Historical Provider metFORMIN HCl 500 MG/5ML Solution No dose, route, or frequency recorded. Past Week Historical Provider traMADol 50 MG tablet TAKE 1 TABLET FOUR TIMES DAILY NEEDED 09/07/2022 07/29/22 Historical Provider traZODone 100 MG tablet No dose, route, or frequency recorded. 09/07/2022 Historical Provider Atorvastatin 40 MG tablet No dose, route, or frequency recorded. 09/06/2022 Historical Provider Folic acid 1 MG tablet No dose, route, or frequency recorded. 09/06/2022 Historical Provider Hydroxychloroquine 200 MG tablet No dose, route, or frequency recorded. 09/06/2022 Historical Provider Methotrexate 2.5 MG/ML oral solution No dose, route, or frequency recorded. 09/04/2022 Historical Provider Trulicity 0.75 MG/0.5ML Solution Pen-injector injection INJECT 0.75 MG Weekly 09/05/2022 07/29/22 Historical Provider ALLERGIES: Allergies Allergen Reactions Sulfa Antibiotics ALL SULFA BASED DRUGS Cephalexin Hives Latex Hives Levofloxacin REVIEW OF SYSTEMS: GENERAL: Negative for malaise, significant weight loss and fever NECK: Negative for lumps, goiter, pain and significant neck swelling RESPIRATORY: Negative for cough, wheezing or shortness of breath. CARDIOVASCULAR: Negative for chest pain, leg swelling or palpitations. GI: Negative for abdominal discomfort, blood in stools or black stools or change in bowel habits : No history of dysuria, frequency or incontinence MUSCULOSKELETAL: Negative for joint pain or swelling, back pain or muscle pain. SKIN: Negative for lesions, rash, and itching. PSYCH: Negative for sleep disturbance, mood disorder and recent psychosocial stressors. ENDOCRINE: Negative for cold or heat intolerance, polyuria, polydipsia and goiter. PHYSICAL EXAM: Visit Vitals BP 172/81 (BP Location: Left arm, BP Position: Sitting) Pulse 75 Temp 98 F (36.7 C) (Temporal) Resp 18 Ht 1.6 m (5' 3 ) Wt 127.9 kg (282 lb) SpO2 96% BMI 49.95 kg/m General appearance: obese Skin: warm, no erythema or rashes Lungs: clear to percussion and auscultation Heart: regular rhythm and S1, S2 normal Abdomen: soft, non-tender, no masses, no organomegaly Extremities: Normal exam of the extremities. No swelling or pain. IMPRESSION: Anthony Sawyer is a 56 y.o. female with morbid obesity and GERD. PLAN: Endoscopy, possible biopsy today. The risks of the procedure including bleeding, perforation, need for further procedure and have been explained to the patient and Anthony Sawyer has expressed understanding and acceptance of them. Consent has been signed. Carly Barcenas DO Bariatric and Minimally Invasive General Surgery [facility] 09-08-2022 History and physical note Bariatric/General Surgery H&P 09/08/2022 7:50 AM Anthony Sawyer [id number] Anthony Sawyer is a 56 y.o. year old female with morbid obesity and GERD. she presents today for endoscopic evaluation of GERD in preparation for bariatric surgery. PAST MEDICAL HISTORY: Past Medical History: Diagnosis Date Arthritis Diabetes mellitus PAST SURGICAL HISTORY: Past Surgical History: Procedure Laterality Date ANKLE SURGERY Right CYSTECTOMY shoulder KNEE SURGERY Bilateral SEPTOPLASTY FAMILY HISTORY: No family history on file. SOCIAL HISTORY: Social History Tobacco Use Smoking status: Never Smokeless tobacco: Never Substance Use Topics Alcohol use: Yes Comment: rarely Drug use: Never MEDICATIONS: Prior to Admission Medications: Current Outpatient Medications Medication Sig Last Dose Start Date End Date Authorizing Provider DULoxetine HCl [address] Particles capsule No dose, route, or frequency recorded. 09/07/2022 Historical Provider Etanercept (Enbrel) 50 MG/ML Solution Prefilled Syringe injection No dose, route, or frequency recorded. Past Week Historical Provider Meloxicam 15 MG tablet 15 mg, Oral, DAILY 09/07/2022 05/25/22 Historical Provider metFORMIN HCl 500 MG/5ML Solution No dose, route, or frequency recorded. Past Week Historical Provider traMADol 50 MG tablet TAKE 1 TABLET FOUR TIMES DAILY NEEDED 09/07/2022 07/29/22 Historical Provider traZODone 100 MG tablet No dose, route, or frequency recorded. 09/07/2022 Historical Provider Atorvastatin 40 MG tablet No dose, route, or frequency recorded. 09/06/2022 Historical Provider Folic acid 1 MG tablet No dose, route, or frequency recorded. 09/06/2022 Historical Provider Hydroxychloroquine 200 MG tablet No dose, route, or frequency recorded. 09/06/2022 Historical Provider Methotrexate 2.5 MG/ML oral solution No dose, route, or frequency recorded. 09/04/2022 Historical Provider Trulicity 0.75 MG/0.5ML Solution Pen-injector injection INJECT 0.75 MG Weekly 09/05/2022 07/29/22 Historical Provider ALLERGIES: Allergies Allergen Reactions Sulfa Antibiotics ALL SULFA BASED DRUGS Cephalexin Hives Latex Hives Levofloxacin REVIEW OF SYSTEMS: GENERAL: Negative for malaise, significant weight loss and fever NECK: Negative for lumps, goiter, pain and significant neck swelling RESPIRATORY: Negative for cough, wheezing or shortness of breath. CARDIOVASCULAR: Negative for chest pain, leg swelling or palpitations. GI: Negative for abdominal discomfort, blood in stools or black stools or change in bowel habits : No history of dysuria, frequency or incontinence MUSCULOSKELETAL: Negative for joint pain or swelling, back pain or muscle pain. SKIN: Negative for lesions, rash, and itching. PSYCH: Negative for sleep disturbance, mood disorder and recent psychosocial stressors. ENDOCRINE: Negative for cold or heat intolerance, polyuria, polydipsia and goiter. PHYSICAL EXAM: Visit Vitals BP 172/81 (BP Location: Left arm, BP Position: Sitting) Pulse 75 Temp 98 F (36.7 C) (Temporal) Resp 18 Ht 1.6 m (5' 3 ) Wt 127.9 kg (282 lb) SpO2 96% BMI 49.95 kg/m General appearance: obese Skin: warm, no erythema or rashes Lungs: clear to percussion and auscultation Heart: regular rhythm and S1, S2 normal Abdomen: soft, non-tender, no masses, no organomegaly Extremities: Normal exam of the extremities. No swelling or pain. IMPRESSION: Anthony Sawyer is a 56 y.o. female with morbid obesity and GERD. PLAN: Endoscopy, possible biopsy today. The risks of the procedure including bleeding, perforation, need for further procedure and have been explained to the patient and Anthony Sawyer has expressed understanding and acceptance of them. Consent has been signed. Carly Barcenas DO Bariatric and Minimally Invasive General Surgery documented in this encounter [facility] 09-08-2022 Nurse Note Pt taken out via wheelchair by Jackie GALLEGO, with pts friend Maria Eugenia driving pt. Pt sitting at the edge of bed, denies dizziness or lightheadedness. Discharge instructions reviewed with pt and family. Pt verbalizes understanding and denies any questions. HOB elevated, drink and snack given. Able to swallow without difficutly. Pt out to recovery, pt stable to bay. IV infusing. Pts friend at bedside. Dr. Barcenas at [facility] speaking to pts friend. documented in this encounter [facility] 09-08-2022 Nurse Surgical operation note Pt taken out via wheelchair by Jackie GALLEGO, with pts friend Maria Eugenia driving pt. [facility] Nurse Surgical operation note Pt sitting at the edge of bed, denies dizziness or lightheadedness. [facility] 09-08-2022 Nurse Surgical operation note Discharge instructions reviewed with pt and family. Pt verbalizes understanding and denies any questions. [facility] Nurse Surgical operation note HOB elevated, drink and snack given. Able to swallow without difficutly. [facility]08-[facility] Nurse Surgical operation note Pt out to recovery, pt stable to bay. IV infusing. Pts friend at bedside. [facility] 09-08-2022 Nurse Surgical operation note Dr. Barcenas at [facility] speaking to pts friend. [facility] 09-08-2022 Note Formatting of this n ote might be different from the original. Forceps down scope [facility] 09-08-2022 Miscellaneous Notes Forceps down scope documented in this encounter [facility] 08-24-2022 History of Present illness Narrative OUTPATIENT BARIATRIC INITIAL ASSESSMENT Referring Provider: Self, Self Nutrition Assessment Anthropometrics: Ht Readings from Last 1 Encounters: 08/24/22 1.6 m (5' 3 ) Wt Readings from Last 5 Encounters: 08/24/22 128.2 kg (282 lb 9.6 oz) 08/24/22 128.2 kg (282 lb 9.6 oz) Reasnor body weight: 52.4 kg (115 lb 8.3 oz) Adjusted ideal body weight: 82.7 kg (182 lb 5.6 oz) % IBW: 245% Body mass index is 50.06 kg/m . Goals after surgery: Too keep the weight off technician terminal and repeater, feel better overall, get off medications for dm and arthritis . Surgery Option: LSG EER: Calories: 5267-5086 kcals/day (15-20 kcals/kg Adj. BW) Protein: 60-79 gm/day (1.1-1.5 gm/kg IBW) Fluid: 64 oz/day Nutrition-Related Hx: Allergies/Intolerances: Nuts (Hives) Foods avoided for rastafarian or other reasons: None Current Supplements: No Previous Nutrition Education? No Previous methods used for weight mgmt: Keto diet did not find this sustainable. 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 /Significant other: No Children living in the house: No Grocery shopping: Pt Cooking: Pt Meals out per week: Nallely Diet Recall: Usual Intake (wakes up at 7-7:40) Meal What Time Breakfast 2 a pices of toast with 2 cups of hot tea 8-9 30 am Snack Lunch Snack Dinner Snack Fluids 2 cups of hot tea, 2 cups of coffee, 96 oz of water. NA Ms. Anthony Sawyer is a 56 y.o. female here in preparation for weight loss surgery, LSG . This is visit #1. Pt typically eats 1-2x per day. She typically eats either toast or a bagel in the morning and a large dinner prior to bed. Pt reports not snacking frequently. Pt works a sedentary job and does not do any planned physical activity at this time. Pt was introduced to the nutritional goals at this time and will be utilizing the online courses due to living far away. Pt will begin adding these nutritional goals into her lifestyle and reach out with any questions/concerns. Reviewed basic nutrition: food groups and macronutrients. Emphasized intake of plant foods along with protein. Discussed and encouraged the following: Eat 5-6 meals per day, including breakfast, lunch, dinner, and 2-3 snacks Limit simple sugars to no more than 10 grams/meal or snack Drink at least 64 ounces of hydrating fluids daily Begin regular physical activity: Aim for 150-300 minutes of exercise each week with at least 2 days, 30 minutes each of strength training Eliminate carbonated beverages Eliminate caffeine Eliminate alcohol Eliminate straws Eat off smaller plates and bowls Chew food 20-30x/bite Put your utensil down between bites Meals should last 20-30 minutes Stop eating when no longer hungry Separate eating and drinking by 30 minutes Eat protein first, vegetables and fruits second, and whole grains last Pt was provided: Nutrition Goals for Bariatric Surgery Nutrition Classes: What to Expect Initial Nutrition Packet Nutrition Appointment No Show Agreement - signed RD contact information Bariatric Nutrition Screw Driver Operator contact information Pt is able to verbalize all nutrition goals for bariatric surgery. Pt seems motivated to make necessary changes in preparation for bariatric sx. Pt is able to verbalize that all nutrition goals must be met prior to receiving nutrition clearance for surgery. Pt is able to verbalize that there will be homework required to bring in to final nutrition appointment. Pt is able to verbalize that during final appointment pt will be required to receive an 80% or higher on a 30-question paper test prior to receiving nutrition clearance for surgery. Pt is able to verbalize nutrition's no show policy and that they may be dismissed from the bariatric program entirely for having >3 no show appointments. Pt is a candidate for online classes and prefers for nutrition classes to be scheduled as: Zoom call 1:1 PMH: Past Medical History: Diagnosis Date Arthritis Diabetes mellitus PSH: Past Surgical History: Procedure Laterality Date ANKLE SURGERY Right CYSTECTOMY shoulder KNEE SURGERY Bilateral SEPTOPLASTY Nutrition-Related Labs: No results found for: GLUCOSE, HGBA1C, SODIUM, POTASSIUM, MAGNESIUM, PHOSPHORUS, CALCIUM, ALBUMIN, PREALBUMIN, BUN, CREATSERUM, HGB, HCT, IRON, B12, [id number], FOLATE BP Readings from Last 3 Encounters: 08/24/22 130/88 Nutrition Diagnosis NC-3.3 Obesity related to excessive energy intake and physical inactivity as evidenced by diet hx and Body mass index is 50.06 kg/m . NB-1.1 Food and nutrition-related knowledge deficit related to eating a well balanced diet, knowledge of nutrient dense foods vs. empty calories and specific calorie needs as evidenced by diet recall, interview with pt. NB-2.1 Physical inactivity related to not exercising and sedentary lifestyle as evidenced by pt report. NI-1.5 Excessive energy intake related to food-and nutrition-related knowledge deficit concerning energy intake, lack of access to healthful food choices as evidenced by diet recall and pt interview. Nutrition Intervention Nutrition Goals: 1. Eat 5-6 small meals/snacks per day (breakfast, lunch, dinner, and 2-3 snacks) 2. Consume 60 - 79 grams of protein daily 3. Limit all sugar + sugar alcohols to no more than 10 grams per meal/snack 4. Drink 64+ oz of hydrating fluid/day 5. Eliminate carbonation, straws, caffeine, and alcohol 6. Eat off smaller plates and bowls 7. Take dime sized bites and chew food 20-30x per bite, or until it is a consistent texture 8. Meals need to last at least 20-30 minutes. Stop eating once you feel full 9. Separate food and fluids by 30 minutes. Do not drink with meals 10. Eat protein first, vegetables and fruits second, and whole grains last 11. Begin physical activity as tolerated. Goal of 150-300 minutes of moderate physical activity per week with 2+ days of strength or resistance training included Monitoring & Evaluation 1. Pt will complete all nutrition classes prior to final nutrition appointment - prefers for them to be scheduled as: Zoom call 1:1 2. Progress towards nutrition goals and weight is tracked at each nutrition class or follow up appointment 3. All nutrition goals will be met prior to final nutrition appointment in order to receive dietitian clearance to have bariatric surgery Time spent with pt: 33 minutes DONNIE Syed Registered Dietitian, Licensed Dietitian 08/24/22 documented in this encounter [facility] 08-24-2022 History of Present illness Narrative Bariatric History and Physical Patient:Anthony Sawyer :1965 Date: 08/24/2022 PRIMARY/REFERRING PHYSICIAN INFORMATION April Brooks HISTORY OF PRESENT ILLNESS CHIEF COMPLAINT: morbid obesity with significant comorbidities. Patient is being referred for pre operative consult for weight loss surgery HISTORY OF PRESENT ILLNESS: The patient is a very pleasant patient who has developed morbid obesity with significant comorbidities who has failed multiple dietary attempts at weight loss. Anthony Sawyer is a 56 y.o. female who presents with complaints of obesity which is severely limiting her life style. She is interested in learning about possible surgical options to help her fight her obesity. She has tried diet and exercise programs previously. She is limited in his physical activity due to obesity. she has been obese for more than 5 years and states that their highest recorded weight is 282 lbs. Previous attempts at weight loss have included exercise routines, exercise videos, low fat/low calorie diets, commercial weight loss programs such as weight watchers.she complains of occasional reflux and denies dysphagia. Past Medical History: Diagnosis Date Arthritis Diabetes mellitus Past Surgical History: Procedure Laterality Date ANKLE SURGERY Right CYSTECTOMY shoulder KNEE SURGERY Bilateral SEPTOPLASTY Current Outpatient Medications Medication Sig Atorvastatin 40 MG tablet DULoxetine HCl [address] Particles capsule Etanercept (Enbrel) 50 MG/ML Solution Prefilled Syringe injection Folic acid 1 MG tablet Hydroxychloroquine 200 MG tablet Meloxicam 15 MG tablet Take 1 tablet by mouth daily. metFORMIN HCl 500 MG/5ML Solution Methotrexate 2.5 MG/ML oral solution traMADol 50 MG tablet TAKE 1 TABLET FOUR TIMES DAILY NEEDED traZODone 100 MG tablet Trulicity 0.75 MG/0.5ML Solution Pen-injector injection INJECT 0.75 MG Weekly Allergies Allergen Reactions Sulfa Antibiotics ALL SULFA BASED DRUGS Cephalexin Hives Latex Hives Levofloxacin Social History Socioeconomic History Marital status: Spouse name: Not on file Number of children: Not on file Years of education: Not on file Highest education level: Not on file Occupational History Not on file Tobacco Use Smoking status: Never Smokeless tobacco: Never Substance and Sexual Activity Alcohol use: Yes Comment: rarely Drug use: Never Sexual activity: Not on file Other Topics Concern Not on file Social History Narrative Not on file Social Determinants of Health Financial Resource Strain: Not on file Food Insecurity: Not on file Transportation Needs: Not on file Physical Activity: Not on file Stress: Not on file Social Connections: Not on file Intimate Partner Violence: Not on file Housing Stability: Not on file History reviewed. No pertinent family history. No family status information on file. REVIEW OF SYSTEMS Review of Systems Constitutional: Negative for chills, diaphoresis and fatigue. HENT: Negative for congestion, facial swelling and hearing loss. Eyes: Negative for pain, redness and itching. Respiratory: Negative for apnea, cough, choking and chest tightness. Cardiovascular: Negative for chest pain, palpitations and leg swelling. Gastrointestinal: Negative for abdominal distention, abdominal pain, constipation, diarrhea, nausea and vomiting. Endocrine: Negative for cold intolerance, heat intolerance and polyphagia. Genitourinary: Negative for difficulty urinating, dysuria, enuresis and flank pain. Musculoskeletal: Negative for arthralgias, back pain, gait problem and joint swelling. Skin: Negative for color change, pallor and rash. Allergic/Immunologic: Negative for environmental allergies, food allergies and immunocompromised state. Neurological: Negative for dizziness, light-headedness, numbness and headaches. Hematological: Negative for adenopathy. Does not bruise/bleed easily. Psychiatric/Behavioral: Negative for agitation, behavioral problems and confusion. Social History Tobacco Use Smoking Status Never Smokeless Tobacco Never PHYSICAL EXAM General Appearance: Well appearing, alert, in no acute distress, well-hydrated, well nourished., morbidly obese. Eyes: conjunctivae and sclerae normal, pupils equal, round, reactive to light and accommodation and no scleral icterus. Ears/Nose/Mouth/Throat: External ears normal, canals clear, TM's normal, Nares normal. Septum midline. Mucosa normal. No drainage or sinus tenderness., Lips, mucosa, and tongue normal, teeth and gums normal, oropharynx normal. Neck: Supple, no adenopathy; thyroid symmetric, normal size, no bruits. Respiratory: Clear to auscultation bilaterally Cardiovascular: Regular rate and rhythm, distal pulses intact bilaterally. Abdomen: soft, non-tender, non-distended, obese, no hernias palpated Lymph Nodes: No cervical lymphadenopathy. Musculoskeletal: Spine range of motion normal. Muscular strength intact, No joint swelling, deformity, or tenderness. Skin: No lesions noted. Neurologic: mental status intact, cranial nerves 2-12 intact, sensation to light touch and pinprick normal. Psychiatric: A&O x 3; Judgement/lnsight appropriate Rectal: deferred exam. DIAGNOSIS/IMPRESSION Encounter Diagnoses Name Primary? Morbid obesity with BMI of 50.0-59.9, adult Yes Type 2 diabetes 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, unspecified whether penitentiary insulin use Gastroesophageal reflux disease, unspecified whether esophagitis present Hypersomnolence with Body mass index is 50.06 kg/m2. Height: 5'3 Weight:282 lbs SURGICAL PLAN Consults: consult bariatric nutrition for 90 days of preoperative supervised diets, consult bariatric psychology, consult primary care physician for medical clearance, sleep study Diagnostic Tests: CBC, CMP, Lipid Panel, Liver Function Panel, Thyroid Function, B-12, Iron Levels, H Pylori, CXR, EGD, EKG Surgical Procedure: 2. Laparoscopic sleeve gastrectomy. I have use an anatomical chart to show the postsurgical changes that occur. I discussed expected weight loss with this procedure and I talked about common early and late complications associated with his procedure. This list included but was not limited to leaks, strictures, bleeding, postoperative infection, hernias and small bowel obstructions. I discussed dumping syndrome in detail how dietary choices can worsen this problem. I discussed the need for vitamins and postoperative.. I have discussed postsurgical follow-up. I discussed the need for supervised medical weight loss prior to surgery as well as mental health examination evaluation. 3. Preoperative work-up as detailed above All risks and benefits were discussed with the patient including: Intra-operative and/or Immediate Post-operative Risks: : The mortality rate of the sleeve gastrectomy nationwide is 0.3% to 2%. Modality rate associated with the gastric bypass is slightly higher-0.5 to 3%. Significant Bleeding: Bleeding may occur unexpectedly in the operating room. Bleeding may also occur post-operatively in the days after the operation. This bleeding may be through the intestinal tract at the staple line and result in the passage of blood in the stool. Bleeding may also be unseen inside the abdomen and be diagnosed through other means. A transfusion may be necessary in some circumstances. Re-operation to stop bleeding may be necessary. If the spleen is injured during the surgery, it may need to be removed. Anastomotic Leak: A leak is when the stapled part of the stomach does not heal. Serious complications can result from a leak, including, but not limited to a prolonged hospital stay, more operations, a long period of nothing to eat, prolonged antibiotic requirements, organ failure and . The reported incidence of anastomotic leak nationwide ranges from 0.5% to 3%. Renal Failure: Transient kidney (renal) failure occurs rarely. Irreversible kidney failure has been reported in rare cases. Prolonged Ventilation: A prolonged stay on a ventilator (breathing machine) in the intensive care unit may occur if a patient has severe sleep apnea or after certain significant complications. A temporary tracheostomy may be necessary. Heart Attack: Although a heart attack is possible after a laparoscopic possible open sleeve gastrectomy, it is very rare. Risk factors for heart disease include increased age, diabetes, hypertension, hypercholesterolemia and a family history of heart disease. Prolonged Hospital Stay: Unforeseen complications may result in a prolonged hospital stay. Intensive care admission may be required. Bowel Obstruction (in undergoing the gastric bypass): An obstruction can occur that would require re-operation. An obstruction can occur from a number of causes, such as bleeding, scarring, technical problems or hernia. Deep Vein Thrombosis (DVT)/Pulmonary Embolism: Blood clots that form in the legs, and elsewhere, and break off into the lungs may cause . Given this risk, treatments may be initiated to decrease the risk for the formation of blood clots, including the use of heparin (a medication that thins the blood), special foot and leg stockings, walking soon after surgery and medication at home after discharge from the hospital. Completely eliminating the risks of DVT (clots) altogether is not possible. The risks associated with the medications used to prevent blood clots can include excessive bleeding. Any symptoms of leg swelling, chest pain or sudden shortness of breath should be immediately reported to the surgeon. Rarely, patients develop allergies to heparin, sometimes causing very severe reactions. Other Complications that may be common: Allergic reactions, headaches, itching, medication side-effects, heartburn/reflux, bruising, gout, anesthetic complications, injury to the bowel or vessels, gas bloating, minor wound drainage, wound opening, scar formation, stroke, urinary tract infection, urinary retention, pressure sores, injury to spleen or surrounding structures, and pneumonia. The patient was advised not to become within 12-18 months following bariatric surgery. She was educated on the increased risks to mother and fetus associated with within 2 years of bariatric surgery. The patient has also been instructed to refrain from smoking and using illicit drugs both before and after their surgery. I have discussed at length the risks of office visits and surgical procedures at the hospital during the COVID-19 pandemic. The risk of vishnu COVID-19 during the perioperative and postoperative care period was also explained to the patient. The patient verbalized full understanding and acceptance of these risks, as well as the quarantine time between testing and surgery. The patient fully understands that if their COVID-19 test is positive or symptoms develop prior to surgery, their surgery will be cancelled. The patient has expressed the desire to proceed with the proposed surgery and any hospital stay required. The patient also agrees to keep their post-operative appointment with myself and dietary to ensure success. I spent greater than 60 minutes in total reviewing the patient's chart, interviewing the patient, and documenting today's visit. Carly Barcenas DO 08/24/2022 9:11 AM Bariatric Surgery documented in this encounter [facility] 08-24-2022 Miscellaneous Notes Addended by: JESUS VILLAREAL on: 08/24/2022 09:29 AM Modules accepted: Orders, SmartSet documented in this encounter [facility] 08-24-2022 Note Addended by: JESUS VILLAREAL on: 08/24/2022 09:29 AM Modules accepted: Orders, SmartSet [facility] 08-24-2022 Note Addended by: JESUS VILLAREAL on: 08/24/2022 09:29 AM Modules accepted: Orders, SmartSet [facility] 08-09-2021 History of Present illness Narrative covid insept telogen effluviumcortisone in left kneein urgicare last week and coivd and strpt negativedm no diabetic meds in 8 months, no cks, has lost weight, resumedhas rheum appt upcoming and will dovetsil labs.insomnia to resume traz at 50-100, prev 200. sl-2+hrs, marlee-nocturia 2-4, bts. [facility] Work Phone: [facility] Nutritional counseling- Primary Morbid obesity with body mass index of 50 or higher [facility] Diagnosis Morbid obesity with BMI of 50.0-59.9, adult Type 2 diabetes 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, unspecified whether technician terminal and repeater insulin use Gastroesophageal reflux disease, unspecified whether esophagitis present Hypersomnolence Hypersomnia, unspecified [facility] Diagnosis Nutritional counseling- Primary BMI 45.0-49.9, adult Body Mass Index 45.0-49.9, adult [facility] Diagnosis Morbid obesity with BMI of 50.0-59.9, adult Type 2 diabetes 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, unspecified whether technician terminal and repeater insulin use Gastroesophageal reflux disease, unspecified whether esophagitis present Hypersomnolence Hypersomnia, unspecified [facility] Diagnosis Morbid obesity with BMI of 50.0-59.9, adult Type 2 diabetes 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, unspecified whether technician terminal and repeater insulin use Gastroesophageal reflux disease, unspecified whether esophagitis present Hypersomnolence Hypersomnia, unspecified [facility] Diagnosis Nutritional counseling- Primary BMI 45.0-49.9, adult Body Mass Index 45.0-49.9, adult documented in this encounter [facility] [place] [facility]* Diagnosis Eating disorder, unspecified type- Primary documented in this encounter [facility]* Diagnosis Sleep apnea, unspecified type- Primary documented in this encounter [facility] [place] [facility]* Diagnosis Type 2 diabetes 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, without long-term current use of insulin ([facility])- Primary Rheumatoid arthritis involving multiple sites, unspecified whether rheumatoid factor present ([facility]) Morbid obesity with body mass index of 50 or higher ([facility]) documented in this encounter [facility] Work Phone: Evaluation note* Diagnosis Obstructive sleep apnea- Primary Obstructive sleep apnea (adult) (pediatric) Sleep related hypoxia Idiopathic sleep related nonobstructive alveolar hypoventilation Overweight Encounter to discuss test results Other specified counseling Encounter for review of form with patient [facility]* Diagnosis Obstructive sleep apnea- Primary Obstructive sleep apnea (adult) (pediatric) Sleep related hypoxia Idiopathic sleep related nonobstructive alveolar hypoventilation Overweight Encounter for review of form with patient documented [facility] note* Diagnosis Primary insomnia- Primary Persistent disorder of initiating or maintaining sleep Type 2 diabetes 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, without long-term current use of insulin ([facility]) Rheumatoid arthritis involving multiple sites, unspecified whether rheumatoid factor present ([facility]) Morbid obesity with body mass index of 50 or higher ([facility]) Mixed hyperlipidemia documented in this encounter [facility] Work Phone: evaluation note* Diagnosis Type 2 diabetes mellitus with hyperglycemia (A1C > 6.49)- Primary Type II or unspecified type diabetes mellitus without mention of complication, not stated as uncontrolled Morbid obesity with body mass index of 50 or higher Type 2 diabetes mellitus with hyperglycemia, unspecified whether technician terminal and repeater insulin use Preop testing Preoperative examination, unspecified S/P gastric sleeve procedure ART (obstructive sleep apnea) Obstructive sleep apnea (adult) (pediatric) Morbid obesity with body mass index of 50 or higher S/P gastric sleeve procedure Hypertensive urgency Unspecified essential hypertension Metabolic acidosis Acidosis Hx of rheumatoid arthritis Personal history of arthritis documented in this encounter [facility] [employer] note* Diagnosis S/P gastric sleeve procedure- Primary documented in this encounter [facility] [employer] note* Diagnosis Nutritional counseling- Primary BMI 45.0-49.9, adult Body Mass Index 45.0-49.9, adult [facility]* Diagnosis Obstructive sleep apnea- Primary Obstructive sleep apnea (adult) (pediatric) Sleep related hypoxia Idiopathic sleep related nonobstructive alveolar hypoventilation Overweight Encounter for review of form with patient Excessive weight loss Loss of weight documented in [facility]* Diagnosis Type 2 diabetes 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, without long-term current use of insulin ([facility])- Primary Mixed hyperlipidemia documented in this encounter [facility] Work Phone: Evaluation note* Diagnosis S/P gastric sleeve procedure- Primary Weight loss Loss of weight [facility]* Since the last office visit there have been no interval operations, hospitalizations, important illn esses or injuries. * dm bid cks 176-333, no lows , eye dr <2 yr no chocolate coater, no neuropathy. not on marilu /arb * Insomnia- talking and tolerating meds, SL- nil, MARLEE-0, no hangover, restorative sleep. Desires to continue med. * has dupytren and sees ortho * asks re bariatric surgery * ra tram freeman [facility] Work Phone: History of Present illness Narrative* Since the last office visit there have been no interval operations, hospitalizations, important illnesses or injuries. * discussed gastric bypass * dm a1c 94, cks fbs avg 180, pre meal 211. has been on pred for knee for 2 weeks int that period. eye dr mild chocolate coater. rba trrulicity * HTN-Takes and tolerates meds without side effects. No alcohol. no tobacco. no exercise. low salt. Reviewed recommendation for 150 minutes of exercise per week including 2 days of weight training if over age 50 [facility] Work Phone: History of Present illness Narrative* Since the last office visit there have been no interval operations, hospitalizations, important illnesses or injuries. * discussed gastric bypass * dm a1c 94, cks fbs avg 180, pre meal 211. has been on pred for knee for 2 weeks int that period. eye dr mild chocolate coater. rba trrulicity * HTN-Takes and tolerates meds without side effects. No alcohol. no tobacco. no exercise. low salt. Reviewed recommendation for 150 minutes of exercise per week including 2 days of weight training if over age 50 [facility] Work Phone: History of Present illness Narrative* has seen nutrition, psy, sleep, labs ekg for pre bariatric eval * 94 to 76 on last a1c, fbs avg 150+, tolerates Trulicity 0.75 without side effect bloating. Reviewedthe goal of increasing to 1.5 after current supply is used * insom doing well on trazodone to continue * Hyperlipidemia- is on statin and a prudent diet. * ra stable per Dr. Foster * HTN-Takes and tolerates meds without side effects. No alcohol. no tobacco. no exercise. low salt. Reviewed recommendation for 150 minutes of exercise per week including 2 days of weight training if over age 50 [facility] Work Phone: Hospital Discharge instructions* Attachments The following attachments cannot be sent through Care Everywhere. * Gastritis ([place]) [facility] (narrative)* Consultation (Routine) - Authorized Specialty Diagnoses / Procedures Referred By Contac t Referred To Contact Primary Care Diagnoses Type 2 diabetes 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, without long-term current use of insulin (CMS/HCC) Rheumatoid arthritis involving multiple sites, unspecified whether rheumatoid factor present (CMS/HCC) Morbid obesity with body mass index of 50 or higher (CMS/HCC) Procedures Follow Up In Primary Care April Brooks MD [address] [place] [address] Referral ID Status Reason Start Date Expiration Date V isits Requested Visits Authorized [id number] Authorized 12/26/2022 06/24/2023 1 1 [facility] Work Phone: Reason for referral (narrative)* Consultation (Routine) - Authorized Specialty Diagnoses / Procedures Referred By Contac t Referred To Contact Primary Care Diagnoses Type 2 diabetes 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, without long-term current use of insulin (CMS/HCC) Procedures Follow Up In Primary Care - Established April Brooks MD [address] [place] [address] Referral ID Status Reason Start Date Expiration Date V isits Requested Visits Authorized [id number] Authorized 03/28/2023 09/24/2023 1 1 [facility] Work Phone: Reason for referral (narrative)* (Routine) Specialty Diagnoses / Procedures Referred By Contac t Referred To Contact [address] [address] Referral ID Status Reason Start Date Expiration Date Visits Re quested Visits Authorized * (Routine) Specialty Diagnoses / Procedures Referred By Contac t Referred To Contact [address] [address] Referral ID Status Reason Start Date Expiration Date Visits Re quested Visits Authorized * (Routine) Specialty Diagnoses / Procedures Referred By Contac t Referred To Contact [address] [address] Referral ID Status Reason Start Date Expiration Date Visits Re quested Visits [facility]ized [facility] Consultation (Routine) - Authorized Specialty Diagnoses / Procedures Referred By Contac t Referred To Contact Primary Care Diagnoses Type 2 diabetes 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, without long-term current use of insulin ([facility]) Procedures Follow Up In Primary Care April Brooks MD [address] [place] [address] Referral ID Status Reason Start Date Expiration Date V isits Requested Visits Authorized [id number] Authorized 07/10/2023 07/09/2024 1 1 [facility] Work Phone: Summary Purpose Family History No Family History Records Found Grandparent Name Dates Details Family history of acute myoc ardial infarction(V17.3, Z82.49) Status:Active Mother Name Dates Details Family history of diabetes m ellitus(V18.0, Z83.3) Status:Active Family history of Lupus(710. 0, M32.9) Status:Active Father Name Dates Details Family history of hypertensi on(V17.49, Z82.49) Status:Active Unknown Family Member Name Dates Details Family history of acute myoc ardial infarction: Grandparent(V17.3, Z82.49) Status:Active Family history of diabetes m ellitus: Mother(V18.0, Z83.3) Status:Active Family history of hypertensi on: Father(V17.49, Z82.49) Status:Active Lupus: Mother Status:Active Unknown Family Member Name Dates Details Family history of acute myoc ardial infarction: Grandparent(V17.3, Z82.49) Status:Active Family history of diabetes m ellitus: Mother(V18.0, Z83.3) Status:Active Family history of hypertensi on: Father(V17.49, Z82.49) Status:Active Lupus: Mother Status:Active Unknown Family Member Name Dates Details Family history of acute myoc ardial infarction: Grandparent(V17.3, Z82.49) Status:Active Family history of diabetes m ellitus: Mother(V18.0, Z83.3) Status:Active Family history of hypertensi on: Father(V17.49, Z82.49) Status:Active Lupus: Mother Status:Active Unknown Family Member Name Dates Details Family history of acute myoc ardial infarction: Grandparent(V17.3, Z82.49) Status:Active Family history of hypertensi on: Father(V17.49, Z82.49) Status:Active Lupus: Mother Status:Active Family history of diabetes m ellitus: Mother, Father(V18.0, Z83.3) Status:Active Unknown Family Member Name Dates Details Family history of acute myoc ardial infarction: Grandparent(V17.3, Z82.49) Status:Active Family history of hypertensi on: Father(V17.49, Z82.49) Status:Active Lupus: Mother Status:Active Family history of diabetes m ellitus: Mother, Father(V18.0, Z83.3) Status:Active Unknown Family Member Name Dates Details Family history of acute myoc ardial infarction: Grandparent(V17.3, Z82.49) Status:Active Family history of hypertensi on: Father(V17.49, Z82.49) Status:Active Lupus: Mother Status:Active Family history of diabetes m ellitus: Mother, Father(V18.0, Z83.3) Status:Active Unknown Family Member Name Dates Details Family history of acute myoc ardial infarction: Grandparent(V17.3, Z82.49) Status:Active Family history of hypertensi on: Father(V17.49, Z82.49) Status:Active Lupus: Mother Status:Active Family history of diabetes m ellitus: Mother, Father(V18.0, Z83.3) Status:Active Unknown Family Member Name Dates Details Family history of acute myoc ardial infarction: Grandparent(V17.3, Z82.49) Status:Active Family history of hypertensi on: Father(V17.49, Z82.49) Status:Active Lupus: Mother Status:Active Family history of diabetes m ellitus: Mother, Father(V18.0, Z83.3) Status:Active Advance Directives No Advanced Directives Records FoundNo Advanced Directives Records FoundNo Advanced Directives Records FoundNo Advanced Directives Records FoundNo Advanced Directives Records FoundNo Advanced Directives Records FoundNo Advanced Directives Records Found Chief Complaint ELEVATED BP, DM CK3 MO FU. REV LABS3 MO FU. REV LABS3 MO FU. REV LABS3 MO FU. REV LABS Reason for Referral Specialty Diagnoses / Procedures Referred By Contac t Referred To Contact Diagnoses Morbid obesity with BMI of 50.0-59.9, adult Type 2 diabetes 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, unspecified whether penitentiary insulin use Gastroesophageal reflux disease, unspecified whether esophagitis present Hypersomnolence Procedures ECG Carly Barcenas, DO [address] [place] [address] Referral ID Status Reason Start Date Expiration Date V isits Requested Visits Authorized [id number] New Request 08/24/2022 09/18/2023 1 1 Specialty Diagnoses / Procedures Referred By Contac t Referred To Contact Diagnoses Morbid obesity with BMI of 50.0-59.9, adult Type 2 diabetes 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, unspecified whether technician terminal and repeater insulin use Gastroesophageal reflux disease, unspecified whether esophagitis present Hypersomnolence Procedures DIAGNOSTIC UPPER ENDOSCOPY MI ESOPHAGOGASTRODUODENOSCOPY TRANSORAL DIAGNOSTIC Carly Barcenas, DO [address] [place] [address] Referral ID Status Reason Start Date Expiration Date V isits Requested Visits Authorized [id number] New Request 08/24/2022 09/18/2023 1 1 Specialty Diagnoses / Procedures Referred By Contac t Referred To Contact Nutrition and Dietetics Diagnoses Morbid obesity with BMI of 50.0-59.9, adult Type 2 diabetes 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, unspecified whether technician terminal and repeater insulin use Gastroesophageal reflux disease, unspecified whether esophagitis present Hypersomnolence Carly Barcenas, DO [address] [place] [address] Referral ID Status Reason Start Date Expiration Date V isits Requested Visits Authorized [id number] New Request 08/24/2022 09/18/2023 1 1 Specialty Diagnoses / Procedures Referred By Contac t Referred To Contact Psychology Diagnoses Morbid obesity with BMI of 50.0-59.9, adult Type 2 diabetes 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, unspecified whether technician terminal and repeater insulin use Gastroesophageal reflux disease, unspecified whether esophagitis present Hypersomnolence Carly Barcenas, DO [address] [place] [address] Abhishek Quiroz, PsyD [address] [place] [address] Referral ID Status Reason Start Date Expiration Date V isits Requested Visits Authorized [id number] New Request 08/24/2022 09/18/2023 1 1 Specialty Diagnoses / Procedures Referred By Contac t Referred To Contact Sleep Medicine Diagnoses Morbid obesity with BMI of 50.0-59.9, adult Type 2 diabetes 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, unspecified whether penitentiary insulin use Gastroesophageal reflux disease, unspecified whether esophagitis present Hypersomnolence Carly Barcenas, DO [address] [place] [address] Referral ID Status Reason Start Date Expiration Date V isits Requested Visits Authorized [id number] New Request 08/24/2022 09/18/2023 1 1 Referral ID Status Reason Start Date Expiration Date Visits Requested Visits Authorized [id number] Authorized - [facility] 08/24/2022 09/18/2023 1 1 Referral ID Status Reason Start Date Expiration Date V isits Requested Visits Authorized [id number] Auth Not Needed 08/24/2022 09/18/2023 1 1 Referral ID Status Reason Start Date Expiration Date V isits Requested Visits Authorized [id number] Pending Review 08/24/2022 09/18/2023 1 1 Referral ID Status Reason Start Date Expiration Date Visits Re quested Visits Authorized [id number] Closed 08/24/2022 09/18/2023 1 1 Additional Source Comments INFORMATION SOURCE (unrecogn ized section and content) DATE CREATED AUTHOR AUTHOR'S ORGANIZ ATION 02/15/2020 [facility] ([place]) DATE CREATED AUTHOR AUTHOR'S ORGANIZ ATION 09/23/2022 [facility] DATE CREATED AUTHOR AUTHOR'S ORGANIZ ATION 09/23/2022 [employer] DATE CREATED AUTHOR AUTHOR'S ORGANIZ ATION 06/30/2023 [facility] DATE CREATED AUTHOR AUTHOR'S ORGANIZ ATION 07/12/2023 [facility] DATE CREATED AUTHOR AUTHOR'S ORGANIZ ATION 07/21/2023 [facility] Reason for Visit (unrecogniz ed section and content) Specialty Diagnoses / Procedures Referred By Contac t Referred To Contact Registered Dietitian / Nutrition and Dietetics Diagnoses Class 2 ZOOM Procedures RETURN VIDEO CLIN STAFF-RADHA Self, Self Jan Hernandez, RD [address] [place] [address] Referral ID Status Reason Start Date Expiration Date V isits Requested Visits Authorized [id number] Pending Review 10/03/2022 10/28/2023 1 1 Specialty Diagnoses / Procedures Referred By Contac t Referred To Contact Nutrition and Dietetics Diagnoses Morbid obesity with BMI of 50.0-59.9, adult Type 2 diabetes 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, unspecified whether penitentiary insulin use Gastroesophageal reflux disease, unspecified whether esophagitis present Hypersomnolence Carly Barcenas, [address] [place] [address] Referral ID Status Reason Start Date Expiration Date V isits Requested Visits Authorized [id number] New Request 08/24/2022 09/18/2023 1 1 Reason Comments New Patient Bariatric Consult Ci gna Specialty Diagnoses / [facility] To Contact Registered Dietitian / Nutrition and Dietetics Diagnoses Initial Procedures NEW PATIENT - RADHA Self, Self Jan Hernandez, RD [address] [place] [address] Referral ID Status Reason Start Date Expiration Date V isits Requested Visits Authorized [id number] Pending Review 08/24/2022 09/18/2023 1 1 Specialty Diagnoses / Procedures [facility] Referred To Contact Diagnoses Morbid obesity with BMI of 50.0-59.9, adult Type 2 diabetes 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, unspecified whether technician terminal and repeater insulin use Gastroesophageal reflux disease, unspecified whether esophagitis present Hypersomnolence Procedures DIAGNOSTIC UPPER ENDOSCOPY MI ESOPHAGOGASTRODUODENOSCOPY TRANSORAL DIAGNOSTIC Carly Barcenas DO [address] [place] [address] Referral ID Status Reason Start Date Expiration Date Visits Re quested Visits Authorized [id number] Closed 08/24/2022 09/18/2023 1 1 Specialty Diagnoses / Procedures [facility] Referred To Contact Diagnoses Morbid obesity with BMI of 50.0-59.9, adult Type 2 diabetes 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, unspecified whether technician terminal and repeater insulin use Gastroesophageal reflux disease, unspecified whether esophagitis present Hypersomnolence Procedures ECG Carly Barcenas DO [address] [place] [address] Referral ID Status Reason Start Date Expiration Date V isits Requested Visits Authorized [id number] New Request 08/24/2022 09/18/2023 1 1 Reason Comments Follow-up Eating Disorder Specialty Diagnoses / Procedures Referred By [facility] t Referred To Contact Registered Dietitian / Nutrition and Dietetics Diagnoses Class 3 ZOOM Procedures RETURN VIDEO CLIN STAFF-Quinn Gant Isaac, RD [address] [place] [address] Referral ID Status Reason Start Date Expiration Date V isits Requested Visits Authorized [id number] Pending Review 10/24/2022 11/18/2023 1 1 Reason Comments Sleep Problem Specialty Diagnoses / Procedures Referred By [facility] t Referred To Contact Diagnoses Sleep apnea, unspecified type Overweight Snoring Insomnia, unspecified type Tests ordered Procedures SCHEDULE HOME SLEEP STUDY Rosanne Haro, BIAZZI NITRATOR OPERATOR-BUDGET CONTROLLER [address] [facility] [address] [place] [address] Referral ID Status Reason Start Date Expiration Date Visits Re quested Visits Authorized [id number] Closed 09/26/2022 10/21/2023 1 1 Specialty Diagnoses / Procedures Referred By [facility] t Referred To Contact Registered Dietitian / Nutrition and Dietetics Diagnoses Final Procedures FOLLOW-UP - Quinn Gant Isaac, RD [address] [place] [address] Referral ID Status Reason Start Date Expiration Date V isits Requested Visits Authorized [id number] Pending Review 12/05/2022 12/30/2023 1 1 Reason Comments Follow-up 3 mo rev labs Reason Comments Sleep Apnea Reason Comments Follow-up 1 month Restless Legs PLMD Obstructive Sleep Apnea Machine complian ce Hypoxia Sleep related Reason Comments Follow-up mo Specialty Diagnoses / Procedures Referred By [facility] t Referred To Contact Primary Care Diagnoses Type 2 diabetes 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, without long-term current use of insulin ([facility]) Rheumatoid arthritis involving multiple sites, unspecified whether rheumatoid factor present ([facility]) Morbid obesity with body mass index of 50 or higher ([facility]) Procedures Follow Up In Primary Care April Brooks MD [address] [place] [address] Referral ID Status Reason Start Date Expiration Date V isits Requested Visits Authorized [id number] Authorized 12/26/2022 06/24/2023 1 1 Specialty Diagnoses / Procedures Referred By Contac t Referred To Contact Diagnoses Morbid obesity with body mass index of 50 or higher [E66.01] Type 2 diabetes mellitus with hyperglycemia, unspecified whether technician terminal and repeater insulin use [E11.65] Carly Barcenas, DO [address] [place] [address] Referral ID Status Reason Start Date Expiration Date Visits Re quested Visits Authorized [id number] 03/27/2023 1 1 Reason Comments Post Op Visit 1 mo post op sleeve Specialty Diagnoses / Procedures Referred By Contac t Referred To Contact Registered Dietitian / Nutrition and Dietetics Diagnoses 2 month post op Procedures FOLLOW-UP - Carly Quinones, DO [address] [place] [address] Jan Hernandez, RD [address] [place] [address] Referral ID Status Reason Start Date Expiration Date V isits Requested Visits Authorized [id number] Pending Review 06/11/2023 07/05/2024 1 1 Reason Comments Obstructive Sleep Apnea Reason Comments Follow-up 3 mo Specialty Diagnoses / Procedures Referred By Contac t Referred To Contact Primary Care Diagnoses Type 2 diabetes 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, without long-term current use of insulin ([facility]) Procedures Follow Up In Primary Care - Established April Brooks MD [address] [place] [address] Referral ID Status Reason Start Date Expiration Date V isits Requested Visits Authorized [id number] Authorized 03/28/2023 09/24/2023 1 1 Reason Comments Post Op Visit 3 mo post op sleeve Care Teams (unrecognized sec tion and content) Rn International Relationship Specialty [place] [address] [place] [address] PCP - General Family Medicine 06/30/22 Rn International Relationship Specialty [place] [address] [place] [phone] PCP - General Family Medicine 06/30/22 Rn International Relationship Specialty [place] [address] [place] [address] PCP - General Family Medicine 06/30/22 Rn International Relationship Specialty [place] [address] [place] [address] PCP - General Family Medicine 06/30/22 Rn International Relationship Specialty [place] [address] [place] [address] PCP - General Family Medicine 06/30/22 Rn International Relationship Specialty [place] [address] [place] [address] PCP - General Family Medicine 06/30/22 Rn International Relationship Specialty [place] [address] [place] [phone] PCP - General Family Medicine 06/30/22 Rn International Relationship Specialty Start Date End Date April Brooks MD [address] [place] [address] PCP - General 04/15/19 Rn International Relationship Specialty [place] [address] [place] [phone] PCP - General Family Medicine 06/30/22 Rn International Relationship Specialty [place] [address] [place] [phone] PCP - General Family Medicine 06/30/22 Rn International Relationship Specialty Start Date End Date April Brooks MD [address] [facility] PCP - General 04/15/19 Rn International Relationship Specialty [place] [address] [place] [phone] PCP - General Family Medicine 06/30/22 Rn International Relationship Specialty [place] [address] [place] [address] PCP - General Family Medicine 06/30/22 Rn International Relationship Specialty [place] [address] [place] [address] PCP - General Family Medicine 06/30/22 Rn International Relationship Specialty [place] [address] [place] [address] PCP - General Family Medicine 06/30/22 Rn International Relationship Specialty Start Date End Date April Brooks MD [address] [place] [address] PCP - General 04/15/19 Rn International Relationship Specialty [place] [address] [place] [address] PCP - General Family Medicine 06/30/22 Scheduled Active and Recently Administ ered Medications (unrecognized section and content) Continuous Medication Order 04/11/2023 04/12/2023 04/13/2023 Lactated ringers 1,000 mL with Potassium chloride 20 mEq IV solution (CANCELED) Intravenous, CONTINUOUS, Starting on Sun04/11/23 at 1200, Until Sun04/12/23 at 0736, Post-op/Post-Proc 1329 ($$New Bag$$ - Provider: Leslee Jones RN)1834 ([employer] - Provider: Karen Kingsley RN) 0554 ($$New Bag$$ - Provider: Le Brooks RN)0930 (Stopped - Provider: Geovanna Robles RN) Lactated ringers IV solution (CANCELED) Intravenous, at 100 mL/hr, CONTINUOUS, Starting on Sun04/11/23 at 0800, Until Sun04/11/23 at 1155, Pre-op/Pre-Proc 0827 ($$New Bag$$ - Provider: Edna Calvillo RN)1110 (Paused - Provider: Amol Bang APRN-[employer] - Comment: Switch to gravity)1111 ($$New Bag$$ - Provider: Amol Bang APRN-[employer])1642 (Stopped - Provider: Karen Kingsley RN) Sodium chloride 0.45% 1,000 mL with Sodium bicarbonate 150 mEq IV solution Intravenous, CONTINUOUS, Starting on Lis 04/12/23 at 0745, Until Sun04/13/23 at 1427 0924 ($$New Bag$$ - Provider: Geovanna Robles RN)1813 (Rate/Dose Verify - Provider: Geovanna Robles RN) 0016 ($$New Bag$$ - Provider: Tess Connelly RN)0744 (Rate/Dose Verify - Provider: Amanda Guzmán RN)1152 (Rate/Dose Verify - Provider: Amanda Guzmán RN) PRN Medication Order 04/11/2023 04/12/2023 04/13/2023 diphenhydrAMINE (BENADRYL) injection 25-50 mg 25-50 mg, Intravenous, EVERY 4 HOURS NEEDED, Starting on Sun04/11/23 at 1154, Until Sun04/13/23 at 1427, Itching, Sleep, insomnia, Post-op/Post-Proc 0553 (Given - Provider: Le Brooks, CHARLES) Enalaprilat (VASOTEC) injection 1.25 mg 1.25 mg, Intravenous, EVERY 6 HOURS NEEDED, Starting on Sun04/11/23 at 1154, Until Sun04/13/23 at 1427, for SBP greater than 150 mm/Hg, Post-op/Post-Proc 1319 (Given - Provider: Leslee Jones RN) HYDROmorphone (DILAUDID) injection 0.5 mg 0.5 mg, Intravenous, EVERY 4 HOURS NEEDED, Starting on Sun04/11/23 at 1153, Until Sun04/13/23 at 1427, Other, Increase in reported pain to moderate or severe between available doses of PO oxycodone, Post-op/Post-Proc Labetalol (NORMODYNE) injection 20 mg 20 mg, Intravenous, EVERY 4 HOURS NEEDED, Starting on Sun04/11/23 at 1616, Until Sun04/13/23 at 1427, systolic blood pressure greater than 160, Administration duration: up to 20 mg over 2 minutes. 0553 (Given - Provider: Le Brooks RN) oxyCODONE (ROXICODONE) oral solution 10 mg(Linked Group 3) 10 mg, Oral, EVERY 4 HOURS NEEDED, Starting on Sun04/11/23 at 1153, Until Sun04/13/23 at 1427, Severe Pain, Post-op/Post-Proc 2132 (See Alternative - Provider: Le Brooks RN) oxyCODONE (ROXICODONE) oral solution 5 mg(Linked Group 3) 5 mg, Oral, EVERY 4 HOURS NEEDED, Starting on Sun04/11/23 at 1153, Until Sun04/13/23 at 1427, Moderate Pain, Post-op/Post-Proc 2132 (Given - Provider: Le Brooks RN) Promethazine (PHENERGAN) 12.5 mg in Sodium chloride 0.9%, with overfill 60.5 mL (total volume) IVPB 12.5 mg, Intravenous, at 121-242 mL/hr, Administer over 15-30 Minutes, EVERY 6 HOURS NEEDED, Starting on Sun04/11/23 at 1153, Until Sun04/13/23 at 1427, Other, Nausea/Vomiting (2nd Line), Extravasation Risk, Post-op/Post-Proc Sodium chloride 0.9 % irrigation (CANCELED) NEEDED, Starting on Sun04/11/23 at 1019, Until Sun04/11/23 at 1134, Intra-op/Intra-Proc 1019 (Given - Provider: Carly Barcenas, DO - Comment: given to sterile field) Linked Groups Order Group 1: insulin lispro (HumaLOG) injectionJump to med Subcutaneous, 4 TIMES DAILY WITH MEALS & AT BEDTIME, First dose on Sun04/11/23 at 1700, Until Discontinued
Sliding Scale parameters: Blood glucose under 70 = call physician; 151 - 200 = 2 units; 201 - 250 = 4 units; 251 - 300 = 6 units; 301 - 350 = 8 units; 351 - 400 = 10 units; Over 400 = call physician.
And Glucose (POC device) (CANCELED) Routine, 4 TIMES DAILY BEFORE MEALS & AT BEDTIME, First occurrence on Sun04/11/23 at 2100, Until Specified And Glucose (POC device) (CANCELED) Routine, ONE TIME, On Sun04/11/23 at 1617, For 1 occurrence
For all Blood Glucose LESS THAN 70 mg/dL, recheck 20 min after treatment then notify physician. And glucose chewable tablet CHEW 16-32 gJump to med 16-32 g (4-8 tablet), Oral, SEE ADMIN INSTRUCTIONS, Starting on Sun04/11/23 at 1616, Until Sun04/13/23 at 1427
If patient is alert and able to tolerate oral medications and blood glucose 69 - 50 mg/dL: give 4 chew tabs, if blood glucose 49 - 20 mg/dL: give 8 chew tabs. Notify physician and repeat blood glucose in 20 minutes. May repeat treatment x 1 if blood glucose less than 60 mg/dL. For alternative treatment options (juice, etc.) refer to the hypoglycemia management protocol on Ell: [facility] Management Protocol.
And Dextrose 10% IV solution 250 mLJump to med 250 mL, Intravenous, at 999 mL/hr, SEE ADMIN INSTRUCTIONS, Starting on Sun04/11/23 at 1616, Until Sun04/13/23 at 1427
Give Dextrose 10% 250 mL IV x 1 at a rate of 999 mL/hr for blood glucose LESS THAN 20 mg/dL or any blood glucose LESS THAN 70 mg/dL and patient has an altered level of consciousness, unable to swallow, or NPO. Notify physician and repeat blood glucose in 20 minutes. May repeat x 1 if repeat blood glucose less than 60 mg/dL
And NOTIFY PHYSICIAN, Blood Glucose LESS THAN 70 mg/dl or greater than 400 mg/dl (CANCELED) Routine, CONTINUOUS, Starting on Sun04/11/23 at 1617, Until Specified
Who to Notify: Snubber
For all Blood Glucose LESS THAN 70 mg/dl, or greater than 400 mg/dl notify AUTO TECH/Physician Group 2: Scopolamine (TRANSDERM-SCOP) patch 1 patch (CANCELED)Jump to med 1 patch, Transdermal, ONCE, 1 dose, On Sun04/11/23 at 0800
Behind ear upon arrival to [facility].
Pre-op/Pre-Proc And VERIFY LINKED PATCH PLACEMENT (CANCELED) Other, EVERY 12 HOURS, First dose on Sun04/11/23 at 0900, Until Discontinued
Confirm continued adhesion of scopolamine 1.5 mg/72hr patch at documented site.
Group 3: oxyCODONE (ROXICODONE) oral solution 5 mgJump to med 5 mg, Oral, EVERY 4 HOURS NEEDED, Starting on Sun04/11/23 at 1153, Until Sun04/13/23 at 1427, Moderate Pain, Post-op/Post-Proc Or oxyCODONE (ROXICODONE) oral solution 10 mgJump to med 10 mg, Oral, EVERY 4 HOURS NEEDED, Starting on Sun04/11/23 at 1153, Until Sun04/13/23 at 1427, Severe Pain, Post-op/Post-Proc FOR RECORDS PERTAINING TO PATIENTS WHO ARE OR HAVE BEEN ENROLLED IN A CHEMICAL DEPENDENCY/SUBSTANCEABUSE PROGRAM, SOME INFORMATION MAY BE OMITTED. This clinical summary was aggregated from multiple sources. Caution should be exercised in using it in the provision of clinical care. This summary normalizes information from multiple sources, and as a consequence, information in this document may materially change the coding, format and clinical context of patient data. In addition, data may be omitted in some cases. CLINICAL DECISIONS SHOULD BE BASED ON THE PRIMARY CLINICAL RECORDS. [employer] [facility]. provides no warranty or guarantee of the accuracy or completeness of information in this document.
[2023-08-07 10:19] LABS: Absolute Lymphocyte Count 2.45 X10^3/uL (0.83-4.51); Absolute Neutrophil Count 2.9 X10^3/uL (2.0-7.7); Basophil# 0.07 X10^3/uL; Basophil% 1.2 % (0-1); Eosinophil# 0.14 X10^3/uL; Eosinophils% 2.3 % (0-5); Hematocrit 41.1 % (37-47); Lymphocyte # 2.45 X10^3/ul (0.83-4.51); Lymphocyte % 40.8 % (19-41); Mean Corp Hgb Conc 31.6 g/dL (32-36); Mean Corpuscular Hgb 28.4 pg (27.0-32.0); Mean Corpuscular Volume 89.9 fL (81-99); Mean Platelet Vol. 11.5 fl (6.2-12.0); Monocyte# 0.46 X10^3/uL; Monocyte% 7.7 % (0-10); NRBC Flagged by Analyzer 0 % (0-5); Neutrophil # 2.87 X10^3/uL (2.7-7.7); Neutrophil % 47.8 % (47-70); Platelet Count 234 K/mm3 (150-450); RBC Distribution Width CV 13.7 % (11.6-14.6); RBC Distribution Width SD 44.8 fl (35.1-43.9); Red Blood Count 4.57 M/mm3 (4.2-5.4)
[2023-08-07 10:47] LABS: ALB/GLOB Ratio 0.9 RATIO (0.9-2.4); AST(SGOT) 18 U/L (15-37); Alanine Aminotransfer ALT/SGPT 18 U/L (13-56); Albumin, Serum 3.1 g/dL (3.2-5.0); Alkaline Phosphatase 88 U/L (45-117); Anion Gap 8 (5-15); BUN 14 mg/dL (7-18); BUN/Creat Ratio 18.7 RATIO (10-20); Calcium,Total 9.1 mg/dL (8.5-10.1); Chloride 111 mmol/L (98-107); Creatinine, Serum 0.75 mg/dL (0.55-1.02); EST Glomerular Filtration Rate 84 mL/min (>60); Est Glom Filt Rate - Afr Amer 102 mL/min (>60); Globulin 3.4 g/dL (2.2-4.2); Glucose 134 mg/dL (74-106); Protein, Total 6.5 g/dL (6.4-8.2); Sodium Level 143 mmol/L (136-145)
[2023-08-07 12:41] LABS: Hemoglobin A1c 7.1 % (3.8-5.6)
== END | disposition home or self-care (01) ==
LOC: MTLAB 07:07
PROVIDERS: PCP Family Medicine; Referring Provider Family Medicine; Visit Provider Family Medicine
DX: M06.00 Rheumatoid arthritis without rheumatoid factor, unspecified site (principal); M79.7 Fibromyalgia; Z79.899 Other long term (current) drug therapy
CPT/HCPCS: 36415; 80053; 83036; 85025

== ENCOUNTER → 2023-10-22 | Outpatient (CLI) | payer OTHER, SELFPAY ==
[2023-10-22 10:39] LABS: Absolute Lymphocyte Count 2.69 X10^3/uL (0.83-4.51); Absolute Neutrophil Count 2.3 X10^3/uL (2.0-7.7); Basophil# 0.07 X10^3/uL; Basophil% 1.2 % (0-1); Eosinophil# 0.15 X10^3/uL; Eosinophils% 2.7 % (0-5); Hematocrit 40.1 % (37-47); Hemoglobin 12.7 g/dL (12.0-15.0); Lymphocyte # 2.69 X10^3/ul (0.83-4.51); Lymphocyte % 47.7 % (19-41); Mean Corp Hgb Conc 31.7 g/dL (32-36); Mean Corpuscular Hgb 28.8 pg (27.0-32.0); Mean Corpuscular Volume 90.9 fL (81-99); Mean Platelet Vol. 11.9 fl (6.2-12.0); Monocyte# 0.47 X10^3/uL; Monocyte% 8.3 % (0-10); NRBC Flagged by Analyzer 0 % (0-5); Neutrophil # 2.25 X10^3/uL (2.7-7.7); Neutrophil % 39.9 % (47-70); Platelet Count 248 K/mm3 (150-450); RBC Distribution Width CV 12.9 % (11.6-14.6); RBC Distribution Width SD 42.8 fl (35.1-43.9); Red Blood Count 4.41 M/mm3 (4.2-5.4); White Blood Count 5.6 K/mm3 (4.4-11.0)
[2023-10-22 11:35] LABS: ALB/GLOB Ratio 1.1 RATIO (0.9-2.4); AST(SGOT) 18 U/L (15-37); Alanine Aminotransfer ALT/SGPT 15 U/L (13-56); Albumin, Serum 3.2 g/dL (3.2-5.0); Alkaline Phosphatase 82 U/L (45-117); Anion Gap 6 (5-15); BUN 11 mg/dL (7-18); BUN/Creat Ratio 14.1 RATIO (10-20); Calcium,Total 8.6 mg/dL (8.5-10.1); Chloride 109 mmol/L (98-107); Creatinine, Serum 0.78 mg/dL (0.55-1.02); EST Glomerular Filtration Rate 81 mL/min (>60); Est Glom Filt Rate - Afr Amer 97 mL/min (>60); Glucose 149 mg/dL (74-106); Protein, Total 6.2 g/dL (6.4-8.2); Sodium Level 140 mmol/L (136-145)
== END | disposition home or self-care (01) ==
LOC: MTLAB 07:03
PROVIDERS: PCP Family Medicine; Referring Provider Internal Medicine Rheumatology; Visit Provider Internal Medicine Rheumatology
DX: M06.00 Rheumatoid arthritis without rheumatoid factor, unspecified site (principal); M79.7 Fibromyalgia; Z79.899 Other long term (current) drug therapy
CPT/HCPCS: 36415; 80053; 83036; 85025

== ENCOUNTER → 2024-01-14 | Outpatient (CLI) | payer OTHER, SELFPAY ==
[2024-01-14 09:55] LABS: Absolute Lymphocyte Count 3.21 X10^3/uL (0.83-4.51); Absolute Neutrophil Count 2.1 X10^3/uL (2.0-7.7); Basophil# 0.06 X10^3/uL; Eosinophil# 0.17 X10^3/uL; Eosinophils% 2.9 % (0-5); Hematocrit 41.8 % (37-47); Hemoglobin 12.9 g/dL (12.0-15.0); Lymphocyte # 3.21 X10^3/ul (0.83-4.51); Lymphocyte % 54.5 % (19-41); Mean Corp Hgb Conc 30.9 g/dL (32-36); Mean Corpuscular Volume 90.9 fL (81-99); Mean Platelet Vol. 11.5 fl (6.2-12.0); Monocyte# 0.38 X10^3/uL; Monocyte% 6.5 % (0-10); NRBC Flagged by Analyzer 0 % (0-5); Neutrophil # 2.06 X10^3/uL (2.7-7.7); Neutrophil % 34.9 % (47-70); Platelet Count 266 K/mm3 (150-450); RBC Distribution Width CV 13.2 % (11.6-14.6); RBC Distribution Width SD 44.3 fl (35.1-43.9); White Blood Count 5.9 K/mm3 (4.4-11.0)
[2024-01-14 11:58] LABS: AST(SGOT) 18 U/L (15-37); Alanine Aminotransfer ALT/SGPT 16 U/L (13-56); Albumin, Serum 3.5 g/dL (3.2-5.0); Alkaline Phosphatase 101 U/L (45-117); Anion Gap 7 (5-15); BUN 14 mg/dL (7-18); BUN/Creat Ratio 17.3 RATIO (10-20); Calcium,Total 9.2 mg/dL (8.5-10.1); Chloride 106 mmol/L (98-107); Creatinine, Serum 0.81 mg/dL (0.55-1.02); EST Glomerular Filtration Rate 77 mL/min (>60); Est Glom Filt Rate - Afr Amer 93 mL/min (>60); Globulin 3.4 g/dL (2.2-4.2); Glucose 103 mg/dL (74-106); Potassium 3.9 mmol/L (3.5-5.1); Protein, Total 6.9 g/dL (6.4-8.2); Sodium Level 141 mmol/L (136-145)
[2024-01-14 12:22] LABS: Cholesterol 221 mg/dL (200); High Density Lipoprotein 67 mg/dL; Triglycerides 143 mg/dL; Very Low Density Lipoprotein 29 mg/dL (5-40)
[2024-01-14 23:23] LABS: Hemoglobin A1c 7.1 % (3.8-5.6)
== END | disposition home or self-care (01) ==
LOC: MTLAB 07:04
PROVIDERS: PCP Family Medicine; Referring Provider Internal Medicine Rheumatology; Visit Provider Internal Medicine Rheumatology
DX: M06.00 Rheumatoid arthritis without rheumatoid factor, unspecified site (principal); Z79.899 Other long term (current) drug therapy; M79.7 Fibromyalgia
CPT/HCPCS: 36415; 80053; 80061; 83036; 85025

== ENCOUNTER → 2024-04-08 | Outpatient (CLI) | payer OTHER, SELFPAY ==
[2024-04-08 10:00] LABS: Absolute Neutrophil Count 2.4 X10^3/uL (2.0-7.7); Basophil# 0.08 X10^3/uL; Basophil% 1.4 % (0-1); Eosinophil# 0.15 X10^3/uL; Eosinophils% 2.6 % (0-5); Hematocrit 36.9 % (37-47); Hemoglobin 11.3 g/dL (12.0-15.0); Lymphocyte % 46.1 % (19-41); Mean Corp Hgb Conc 30.6 g/dL (32-36); Mean Corpuscular Hgb 28.3 pg (27.0-32.0); Mean Corpuscular Volume 92.5 fL (81-99); Mean Platelet Vol. 11.3 fl (6.2-12.0); Monocyte# 0.56 X10^3/uL; Monocyte% 9.6 % (0-10); NRBC Flagged by Analyzer 0 % (0-5); Neutrophil # 2.36 X10^3/uL (2.7-7.7); Neutrophil % 40.1 % (47-70); Platelet Count 244 K/mm3 (150-450); RBC Distribution Width CV 13.7 % (11.6-14.6); RBC Distribution Width SD 46.8 fl (35.1-43.9); Red Blood Count 3.99 M/mm3 (4.2-5.4); White Blood Count 5.9 K/mm3 (4.4-11.0)
[2024-04-08 11:02] LABS: AST(SGOT) 10 U/L (15-37); Alanine Aminotransfer ALT/SGPT 12 U/L (13-56); Albumin, Serum 3.1 g/dL (3.2-5.0); Alkaline Phosphatase 88 U/L (45-117); Anion Gap 3 (5-15); BUN 9 mg/dL (7-18); BUN/Creat Ratio 11.7 RATIO (10-20); Calcium,Total 8.6 mg/dL (8.5-10.1); Chloride 107 mmol/L (98-107); Creatinine, Serum 0.77 mg/dL (0.55-1.02); EST Glomerular Filtration Rate 82 mL/min (>60); Est Glom Filt Rate - Afr Amer 99 mL/min (>60); Globulin 3.1 g/dL (2.2-4.2); Glucose 155 mg/dL (74-106); Potassium 3.8 mmol/L (3.5-5.1); Protein, Total 6.2 g/dL (6.4-8.2); Sodium Level 139 mmol/L (136-145)
== END | disposition home or self-care (01) ==
LOC: MTLAB 08:38
PROVIDERS: PCP Family Medicine; Referring Provider Internal Medicine Rheumatology; Visit Provider Internal Medicine Rheumatology
DX: M06.00 Rheumatoid arthritis without rheumatoid factor, unspecified site (principal); M79.7 Fibromyalgia; Z79.899 Other long term (current) drug therapy
CPT/HCPCS: 36415; 80053; 85025

== ENCOUNTER → 2024-06-27 | Outpatient (CLI) | payer OTHER, SELFPAY ==
[2024-06-27 10:15] LABS: Absolute Lymphocyte Count 2.69 X10^3/uL (0.83-4.51); Absolute Neutrophil Count 2.5 X10^3/uL (2.0-7.7); Basophil% 1.7 % (0-1); Eosinophil# 0.12 X10^3/uL; Eosinophils% 2.1 % (0-5); Hematocrit 37.8 % (37-47); Hemoglobin 11.8 g/dL (12.0-15.0); Lymphocyte # 2.69 X10^3/ul (0.83-4.51); Lymphocyte % 46.1 % (19-41); Mean Corp Hgb Conc 31.2 g/dL (32-36); Mean Corpuscular Volume 89.8 fL (81-99); Mean Platelet Vol. 11.7 fl (6.2-12.0); Monocyte# 0.45 X10^3/uL; Monocyte% 7.7 % (0-10); NRBC Flagged by Analyzer 0 % (0-5); Neutrophil # 2.46 X10^3/uL (2.7-7.7); Neutrophil % 42.2 % (47-70); Platelet Count 233 K/mm3 (150-450); RBC Distribution Width SD 42.7 fl (35.1-43.9); Red Blood Count 4.21 M/mm3 (4.2-5.4); White Blood Count 5.8 K/mm3 (4.4-11.0)
[2024-06-27 10:36] LABS: AST(SGOT) 13 U/L (15-37); Alanine Aminotransfer ALT/SGPT 12 U/L (13-56); Albumin, Serum 3.2 g/dL (3.2-5.0); Alkaline Phosphatase 90 U/L (45-117); Anion Gap 7 (5-15); BUN 18 mg/dL (7-18); BUN/Creat Ratio 18.1 RATIO (10-20); Calcium,Total 8.6 mg/dL (8.5-10.1); Chloride 108 mmol/L (98-107); Creatinine, Serum 0.99 mg/dL (0.55-1.02); EST Glomerular Filtration Rate 61 mL/min (>60); Est Glom Filt Rate - Afr Amer 73 mL/min (>60); Globulin 3.1 g/dL (2.2-4.2); Glucose 207 mg/dL (74-106); Potassium 4.2 mmol/L (3.5-5.1); Protein, Total 6.3 g/dL (6.4-8.2); Sodium Level 139 mmol/L (136-145)
== END | disposition home or self-care (01) ==
LOC: MTLAB 07:14
PROVIDERS: PCP Family Medicine; Referring Provider Internal Medicine Rheumatology; Visit Provider Internal Medicine Rheumatology
DX: M06.00 Rheumatoid arthritis without rheumatoid factor, unspecified site (principal); M79.7 Fibromyalgia; Z79.899 Other long term (current) drug therapy
CPT/HCPCS: 36415; 80053; 85025

== ENCOUNTER → 2024-09-16 | Outpatient (CLI) | payer OTHER, SELFPAY ==
[2024-09-16 10:32] LABS: Absolute Lymphocyte Count 2.77 X10^3/uL (0.83-4.51); Absolute Neutrophil Count 3.1 X10^3/uL (2.0-7.7); Basophil# 0.09 X10^3/uL; Basophil% 1.3 % (0-1); Eosinophil# 0.12 X10^3/uL; Eosinophils% 1.8 % (0-5); Hematocrit 41.9 % (37-47); Hemoglobin 13.3 g/dL (12.0-15.0); Lymphocyte # 2.77 X10^3/ul (0.83-4.51); Lymphocyte % 41.5 % (19-41); Mean Corp Hgb Conc 31.7 g/dL (32-36); Mean Corpuscular Hgb 28.4 pg (27.0-32.0); Mean Corpuscular Volume 89.5 fL (81-99); Mean Platelet Vol. 11.1 fl (6.2-12.0); Monocyte# 0.59 X10^3/uL; Monocyte% 8.8 % (0-10); NRBC Flagged by Analyzer 0 % (0-5); Neutrophil # 3.09 X10^3/uL (2.7-7.7); Neutrophil % 46.5 % (47-70); Platelet Count 277 K/mm3 (150-450); RBC Distribution Width CV 13.2 % (11.6-14.6); RBC Distribution Width SD 43.1 fl (35.1-43.9); Red Blood Count 4.68 M/mm3 (4.2-5.4); White Blood Count 6.7 K/mm3 (4.4-11.0)
[2024-09-16 11:11] LABS: AST(SGOT) 11 U/L (15-37); Alanine Aminotransfer ALT/SGPT 15 U/L (13-56); Albumin, Serum 3.5 g/dL (3.2-5.0); Alkaline Phosphatase 91 U/L (45-117); Anion Gap 6 (5-15); BUN 17 mg/dL (7-18); Calcium,Total 9.3 mg/dL (8.5-10.1); Chloride 107 mmol/L (98-107); Creatinine, Serum 0.85 mg/dL (0.55-1.02); EST Glomerular Filtration Rate 72 mL/min (>60); Est Glom Filt Rate - Afr Amer 88 mL/min (>60); Globulin 3.6 g/dL (2.2-4.2); Glucose 156 mg/dL (74-106); Protein, Total 7.1 g/dL (6.4-8.2); Sodium Level 140 mmol/L (136-145)
== END | disposition home or self-care (01) ==
LOC: MTLAB 07:03
PROVIDERS: PCP Family Medicine; Referring Provider Internal Medicine Rheumatology; Visit Provider Internal Medicine Rheumatology
DX: M06.00 Rheumatoid arthritis without rheumatoid factor, unspecified site (principal); M79.7 Fibromyalgia; M17.0 Bilateral primary osteoarthritis of knee; M18.11 Unilateral primary osteoarthritis of first carpometacarpal joint, right hand; Z79.899 Other long term (current) drug therapy
CPT/HCPCS: 36415; 80053; 85025

== ENCOUNTER → 2025-04-01 | Outpatient (CLI) | payer OTHER, SELFPAY ==
--- OUTSIDE RECORDS SUMMARY | 2025-04-01 07:16 | XMS RPT_ITS | CCD ---
Author Organization [facility] Care Team Providers Care Impregnator And Drier Helper Name Role Phone Todd, April Unavailable Unavailable Stencel, April Unavailable Unavailable Stencel, April Unavailable Unavailable Stencel, April Unavailable Unavailable Stencel, April Unavailable Unavailable Stencel, April Unavailable Unavailable Stencel, April Unavailable Unavailable Stencel, April Unavailable Unavailable Stencel, April Unavailable Unavailable Stencel, April Unavailable Unavailable Stencel, April Cade Unavailable Unavailable Stenjoaquín, April Cade Unavailable Unavailable Unavailable Todd, Dr. King Primary Care Provider oTdd, Dr. King Referring Provider [phone] DARIAN Curran Attending Provider [phone] April Brooks MD Primary Care Provider Todd, [...] Provider April Brooks MD Primary Care Provider APRIL BROOKS Primary Bettina Unavailable SELF, SELF Referring Unavailable CARLY BLANCO Attending Unavailable STENAPRIL ESCALANTE Primary Care Unavailable SELF, SELF Referring Unavailable CARLY BLANCO Attending Unavailable STENCEL, APRIL Primary Care Unavailable SELF, SELF Referring Unavailable LASHON MCDONOUGHZIE Attending Unavailable STENCEL, APRIL Primary Care Unavailable SELF, SELF Referring Unavailable MCDONOUGH, DEBORAH Attending Unavailable BLANCO, CARLY E Attending Unavailable STENCEL, APRIL Primary Care Unavailable BLANCO, CARLY E Referring Unavailable STENCEL, APRIL Primary Care Unavailable SELF, SELF Referring Unavailable BLANCO, CARLY Attending Unavailable LEISAOFFJAN Attending Unavailable STENCEL, APRIL Primary Care Unavailable BLANCO, CARLY Referring Unavailable TAHIRROSANNE Attending Unavailable STENCEL, APRIL Primary Care Unavailable STENCEL, APRIL Referring Unavailable STENCEL, APRIL Primary Care Unavailable BLANCO, CARLY Attending Unavailable BLANCO, CARLY Referring Unavailable STENCEL, APRIL Primary Care Unavailable BLANCO, CARLY Attending Unavailable BLANCO, CARLY Referring Unavailable Stencel April SANCHEZ Primary Care Provider [phone] Velnikita Pamela Attending Unavailable Stencel, April Primary Care Unavailable Vellanki, Pamela Referring Unavailable Vellanki, Pamela Attending Unavailable Stencel, April Primary Care Unavailable Vellanki, Pamela Referring Unavailable Stencel, April Primary Care Unavailable Vellanki, Pamela Referring Unavailable Vellanki, Pamela Attending Unavailable Stencel, April Primary Care Unavailable Stencel, April Consulting Unavailable Vellanki, Pamela Attending Unavailable Vellanki, Pamela Referring Unavailable Stencel, April Primary Care Unavailable Stencel, April Consulting Unavailable Vellanki, Pamela Attending Unavailable Vellanki, Pamela Referring Unavailable Stencel April SANCHEZ Primary Care Provider APRIL BROOKS Attending Unavailable STENCEL, APRIL Cade Referring Unavailable STENCEL, APRIL Cade Primary Care Unavailable STENCEL, APRIL Cade Attending Unavailable STENCEL, APRIL Cade Referring Unavailable STENCEL, APRIL Cade Primary Care Unavailable Allergies Allergy Classification Reported Allergen(s) Allergy Type Date of Onset Reaction(s) Facility (10 sources) Cephalexin; Translations: [Keflex] Drug Allergy [facility] Repository (20 sources) Latex; Translations: [Latex] Propensity to adverse reactions (disorder) 08-09-19 22 Hives, Redness [facility] Repository (10 sources) levoFLOXacin; Translations: [Levaquin] Drug Allergy [facility] Repository (10 sources) Sulfamethoxazole / Trimethoprim; Translations: [Bactrim] Drug Allergy Chest Pain [facility] Repository (9 sources) Latex rubber gloves; Translations: [Latex Gloves] Allergy to drug (finding) [facility] Work Phone: (12 sources) Adhesive agent; Translations: [adhesive] Allergy to substance 08-09-19 [facility] (12 sources) Cephalexin; Translations: [cephalexin monohydrate] Drug Allergy 08-09-19 [facility] (20 sources) levoFLOXacin; Translations: [LEVOFLOXACIN] Drug Allergy 08-09-19 [facility] Work Phone: (12 sources) Sulfonamides (Antibiotic); Translations: [Sulfa (Sulfonamide Antibiotics)] Allergy to substance 08-09-19 [facility] (20 sources) Cephalexin; Translations: [CEPHALEXIN] Drug Allergy 08-24-19 23 [facility] (20 sources) Sulfonamides (Antibiotic) Propensity to adverse reactions to drug 08-24-19 23 [facility] (8 sources) Sulfamethoxazole / Trimethoprim; Translations: [SULFAMETHOXAZOLE-T RIMETHOPRIM] Drug Allergy 08-24-19 23 [facility] Work Phone: (8 sources) Not Able To Determine Propensity to adverse reactions 03-27-20 Anaphylaxis [facility] (1 source) levoFLOXacin Drug Allergy 08-09-19 [facility] Repository Medications Current Medications Medication Drug Class(es) Dates Sig (Normalized) Sig (Original) atorvastatin 40 mg oral tablet (20 sources) HMG-CoA Reductase Inhibitor Start: 06-09-2020 End: 04-13-2023 take 40 mg by mouth at bedtime Atorvastatin Active 40 MG PO AT BEDTIME June 09, 2020 1:00am blood sugar diagnostic (Blood Glucose Test) (1 source) Start: 01-13-2025 blood sugar diagnostic (Blood Glucose Test) Indications: Type 2 diabetes 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, without long-term current use of insulin twice a day. 200 strip 3 01/13/2025 Active 0.5 ml dulaglutide 1.5 mg/ml auto-injector (20 sources) GLP-1 Receptor Agonist Start: 10-27-2022 End: 10-11-2023 inject 1.5 mg by subcutaneous injection every week Trulicity 0.75 mg/0.5 mL pen injector Indications: Type 2 diabetes 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, without long-term current use of insulin ([facility]) Inject 1.5 mg under the skin 1 (one) time per week. 12 each 3 03/28/2023 10/11/2023 Discontinued (Therapy completed) Start: 06-27-2022 End: 04-13-2023 Trulicity 0.75 MG/0.5ML Solu tion Pen-injector injection INJECT 0.75 MG Weekly 0 07/29/2022 04/13/2023 Discontinued (Stop Taking at Discharge) Start: 06-27-2022 inject 1.5 mg by sub cutaneous injection every week Trulicity 1.5 MG/0.5ML Subcutaneous Solution Pen-injector INJECT 1.5 MG Weekly Quantity: 3 Refills: 3 Ordered: 22-Sep-2022 April Brooks MD Start : 27-Jun-2022 Active ergocalciferol 1.25 mg oral capsule (5 sources) Provitamin D2 Compound Start: 10-11-2022 End: 11-30-2022 take 1 capsule by mouth every week Ergocalciferol 1.25 MG (50165 UT) capsule Indications: Vitamin D deficiency Take 1 capsule by mouth once a week for 8 doses. 4 capsule 1 10/11/2022 Active 1 ml etanercept 50 mg/ml prefilled syringe (20 sources) Tumor Necrosis Factor Shelley Start: 06-09-2020 Etanercept Active 50 MG SQ WE June 09, 2020 1:00am Start: 02-02-2020 etanercept (En breL SureClick) 50 mg/mL (1 mL) pen injector pen injection Inject under the skin. DIRECTED BY PROVIDER 02/02/2020 Active Start: 02-02-2020 Enbrel SureCli ck 50 MG/ML Subcutaneous Solution Auto-injector Quantity: 4 Refills: 0 Ordered: 02-Feb-2020 DO Start : 02-Feb-2020 Active Etanercept 50 MG /ML Solution Prefilled Syringe injection Inject 1 mL as directed once a week. Active folic acid 0.4 mg oral tablet (20 sources) Start: 02-11-2019 take 0.8 mg by mouth twice daily Folic Acid Active 0.8 MG PO TWICE A DAY February 11, 2019 12:00am folic acid (Folv ite) 1 mg tablet 1 tablet (1 mg) 2 times a day after meals. Active hydroxychloroquine sulfate 200 mg oral tablet (20 sources) Antimalarial, Antirheumatic Agent Start: 01-20-2014 End: 04-13-2023 take 200 mg by mouth once daily at mealtime Hydroxychloroquine Active 200 MG PO DAILY WITH MEALS January 20, 2014 12:00am take 1 tablet by mouth twice jinny ly hydroxychloroquine (Plaquenil) 200 mg tablet Take 1 tablet (200 mg) by mouth 2 times a day. Active 24 hr metFORMIN hydrochloride 500 mg extended release oral tablet (20 sources) Biguanide Start: 03-28-2023 End: 07-14-2025 take 2 tablets by mouth once daily metFORMIN XR 500 mg 24 hr tablet Indications: Type 2 diabetes 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, without long-term current use of insulin Take 2 tablets (1,000 mg) by mouth once daily. 180 tablet 3 07/14/2024 07/14/2025 Active Start: 06-09-2020 take 500 mg by mouth once sloane y Metformin Active 500 MG PO DAILY June 09, 2020 1:00am metFORMIN 500 MG tablet Take by mouth 2 times daily. Active metFORMIN HCl 50 0 MG/5ML Solution take 2 tablets by mo [facility] once daily metFORMIN HCl ER 500 MG Oral Tablet Extended Release 24 Hour TAKE 2 TABLET Daily Quantity: 180 Refills: 3 Ordered: 14-Mar-2022 April Brooks MD Active take 1 tablet by mouth once sloane y metFORMIN HCl ER 500 MG Oral Tablet Extended Release 24 Hour Take 1 tablet daily Quantity: 180 Refills: 3 Ordered: 06-Apr-2020 April Brooks MD Active methotrexate 2.5 mg oral tablet (20 sources) Folate Analog Metabolic Inhibitor Start: 02-11-2019 take 20 mg by mouth once Methotrexate Sodium Active 20 MG PO MO February 11, 2019 12:00am methotrexate (Tr exall) 2.5 mg tablet Take 1 tablet (2.5 mg total) by mouth. TAKE EIGHT TABLETS PER WEEK Active End: 04-13-2023 take 8 tablets by mouth every week METHOTREXATE PO Take 8 tablets by mouth once a week. 0 04/13/2023 Discontinued (Stop Taking at Discharge) Methotrexate 2.5 MG/ML oral solution take [address] tablets [address] [facility] every week Methotrexate Sodium 2.5 MG Oral Tablet TAKE 8 TABLETS PER WEEK. Quantity: 0 Refills: 0 Ordered: 23-Sep-2019 DO Active Misc. Devices Misc (10 sources) omeprazole 20 mg delayed release oral capsule (8 sources) Proton Pump Inhibitor Start: 03-27-2023 take 1 capsule by mouth once daily omeprazole [address] capsule Indications: Morbid obesity with body mass index of 50 or higher Take 1 capsule by mouth daily. 30 capsule 2 03/27/2023 Active ondansetron 4 mg disintegrating oral tablet (20 sources) Serotonin-3 Receptor Antagonist Start: 04-11-2023 End: 04-13-2023 4 mg, Intravenous, EVERY 6 HOURS, First dose on Sun04/11/23 at 1200, Until Discontinued, Post-op/Post-Proc Start: 03-27-2023 End: 10-25-2023 take 1 tablet by mouth every eight hours as needed Ondansetron 4 MG Tab Dispersible tablet Indications: Morbid obesity with body mass index of 50 or higher Take 1 tablet by mouth every 8 hours as needed. 30 tablet 2 10/25/2023 Active Start: 04-28-2021 take 8 mg by mouth e very eight hours as needed Ondansetron Active 8 MG PO EVERY 8 HOURS NEEDED April 28, 2021 12:00am predniSONE 10 mg oral tablet (20 sources) Start: 01-20-2014 End: 04-13-2023 take 10 mg by mouth once daily Prednisone Active 10 MG PO DAILY January 20, 2014 12:00am Completed/Discontinued Medications Medication Drug Class(es) Dates Sig [...] from all sources in 24 hours. Post-op/Post-Proc Start: 04-11-2023 End: 04-11-2023 acetaminophen (TYLENOL) tabl et 1,000 mg amoxicillin 500 mg oral capsule (1 source) Penicillin-class Antibacterial Start: 09-23-2019 take 1 capsule by mouth three times daily Amoxicillin 500 MG Oral Capsule TAKE 1 CAPSULE 3 TIMES DAILY UNTIL GONE. Quantity: 30 Refills: 3 April Brooks MD Start : 23-Sep-2019 Active amoxicillin 875 mg / clavulanate 125 mg oral tablet (20 sources) Penicillin-class Antibacterial Start: 11-01-2018 End: 11-11-2018 take 1 tablet by mouth every twelve hours Amoxicillin-Pot Clavulanate (Augmentin) 875-125 mg tablet Discontinued 1 TABLET PO Q12H 20 November 01, 2018 12:00am November 11, 2018 12:07am Start: 04-30-2018 End: 05-10-2018 take 1 tablet by mouth every twelve hours Amoxicillin-Pot Clavulanate (Augmentin) 875-125 mg tablet Discontinued 1 TABLET PO Q12H 18 05April 30, 2018 12:00am May 10, 2018 12:08am aspirin 81 mg oral tablet (9 sources) Platelet Aggregation Inhibitor, Nonsteroidal Anti-inflammatory Drug Aspirin 81 MG TAB S TAKE 1 TABLET DAILY. Quantity: 0 Refills: 0 Ordered: 23-Sep-2019 DO Active calcium chloride 0.0014 meq/ml / potassium chloride 0.004 meq/ml / sodium chloride 0.103 meq/ml / sodium lactate 0.028 meq/ml injectable solution (2 sources) Start: 04-11-2023 End: 04-11-2023 Lactated ringers IV solution Start: 09-08-2022 End: 09-09-2022 Lactated ringers IV solution 1 ml diphenhydrAMINE hydrochloride 50 mg/ml cartridge (1 source) Histamine-1 Receptor Antagonist Start: 04-11-2023 End: 04-13-2023 take 25-50 mg intravenously every four hours as needed 25-50 mg, Intravenous, EVERY 4 HOURS NEEDED, Starting on Sun04/11/23 at 1154, Until Sun04/13/23 at 1427, Itching, Sleep, insomnia, Post-op/Post-Proc DULoxetine 30 mg delayed release oral capsule (20 sources) Serotonin and Norepinephrine Reuptake Inhibitor Start: 04-11-2023 End: 04-13-2023 take 60 mg by mouth once daily 60 mg, Oral, DAILY, First dose on Sun04/11/23 at 1200, Until Discontinued, Post-op/Post-Proc Start: 04-29-2021 take 60 mg by mouth twice sloane y Duloxetine Active 60 MG PO TWICE A DAY April 29, 2021 12:00am Start: 02-11-2019 take 30 mg by mouth once daily Duloxetine Active 30 MG PO DAILY February 11, 2019 12:00am take 1 capsule by [facility] once daily DULoxetine (Cymbalta) [address] capsule Take 1 capsule (60 mg) by mouth once daily. Active DULoxetine HCl [address] Particles capsule daily. Active 2 ml enalaprilat 1.25 mg/ml injection (1 source) Angiotensin Converting Enzyme Inhibitor Start: 04-11-2023 End: 04-13-2023 take 1.25 mg intravenously every six hours as needed 1.25 mg, Intravenous, EVERY 6 HOURS NEEDED, Starting on Sun04/11/23 at 1154, Until Sun04/13/23 at 1427, for SBP greater than 150 mm/Hg, Post-op/Post-Proc 0.4 ml enoxaparin sodium 100 mg/ml prefilled syringe (1 source) Low Molecular Weight Heparin Start: 04-12-2023 End: 04-13-2023 inject 40 mg by subcutaneous injection every twelve hours 40 mg, Subcutaneous, EVERY 12 HOURS, First dose on Lis 04/12/23 at 0900, Until Discontinued, Indications: DVT/PE prophylaxis, Post-op/Post-Proc [id number] 0.3 ml EPINEPHrine 1 mg/ml auto-injector (11 sources) alpha-Adrenergic Agonist, beta-Adrenergic Agonist, Catecholamine Start: 11-09-2018 End: 06-09-2020 inject 0.3 mg by intramuscular injection once Epinephrine Discontinued 0.3 MG IM ONE TIME November 09, 2018 12:00am June 09, 2020 2:04pm gabapentin 300 mg oral capsule (1 source) Anti-epileptic Agent Start: 04-11-2023 End: 04-11-2023 Gabapentin (NEURONTIN) capsule 600 mg 1 ml heparin sodium, porcine 5000 unt/ml prefilled syringe (1 source) Unfractionated Heparin, Anti-coagulant Start: 04-11-2023 End: 04-11-2023 Heparin injection 5,000 Units 1 ml HYDROmorphone hydrochloride 1 mg/ml cartridge (1 source) Opioid Agonist Start: 04-11-2023 End: 04-13-2023 take 0.5 mg intravenously every four hours as needed 0.5 mg, Intravenous, EVERY 4 HOURS NEEDED, Starting on Sun04/11/23 at 1153, Until Sun04/13/23 at 1427, Other, Increase in reported pain to moderate or severe between available doses of PO oxycodone, Post-op/Post-Proc insulin lispro (HumaLOG) injection (1 source) Start: 04-11-2023 End: 04-13-2023 insulin lispro (HumaLOG) injection 1 ml ketorolac tromethamine 15 mg/ml cartridge (1 source) Nonsteroidal Anti-inflammatory Drug, Cyclooxygenase Inhibitor Start: 04-11-2023 End: 04-13-2023 15 mg, Intravenous, EVERY 6 HOURS, 8 doses, First dose on Sun04/11/23 at 1200, Last dose on Sun04/13/23 at 0800, Post-op/Post-Proc labetalol hydrochloride 5 mg/ml injectable solution (1 source) beta-Adrenergic Shelley Start: 04-11-2023 End: 04-13-2023 take 20 mg intravenously every four hours as needed Labetalol (NORMODYNE) injection 20 mg Lactated ringers 1,000 mL with Potassium chloride 20 mEq IV solution (1 source) Start: 04-11-2023 End: 04-12-2023 Intravenous, CONTINUOUS, Starting on Sun04/11/23 at 1200, Until Lis 04/12/23 at 0736, Post-op/Post-Proc losartan potassium 25 mg oral tablet (13 sources) Angiotensin 2 Receptor Shelley Start: 04-12-2023 End: 04-13-2023 Losartan (COZAAR) tablet 25 mg Start: 03-14-2022 take 1 tablet by cl once daily losartan (Cozaar) 50 mg tablet Take 1 tablet (50 mg) by mouth once daily. 03/14/2022 Active meloxicam 15 mg oral tablet (20 sources) Nonsteroidal Anti-inflammatory Drug Start: 05-25-2022 End: 04-13-2023 take 1 tablet by mouth once daily Meloxicam 15 MG tablet Take 1 tablet by mouth daily. 0 05/25/2022 04/13/2023 Discontinued (Stop Taking at Discharge) oxyCODONE hydrochloride 5 mg oral tablet (9 sources) Opioid Agonist Start: 04-11-2023 End: 04-13-2023 take 5 mg by mouth every four hours as needed oxyCODONE (ROXICODONE) oral solution 5 mg Start: 03-27-2023 take 5 mL by mouth e very six hours as needed oxyCODONE 5 MG/5ML Solution oral solution Indications: Morbid obesity with body mass index of 50 or higher Take 5 mL by mouth every 6 hours as needed for up to 6 days. 120 mL 03/27/2023 Active pantoprazole 40 mg injection (1 source) Proton Pump Inhibitor Start: 04-11-2023 End: 04-13-2023 40 mg, Intravenous, DAILY, First dose on Sun04/11/23 at 1200, Until Discontinued Dilute each 40 mg vial with 10 mL of NS. All bolus doses, whether 40 mg or 80 mg, should be administered over at least two minutes. Indications: Inpt Stress Ulcer Prophylaxis, Post-op/Post-Proc Promethazine (PHENERGAN) 12.5 mg in Sodium chloride 0.9%, with overfill 60.5 mL (total volume) IVPB (1 source) Start: 04-11-2023 End: 04-13-2023 take 12.5 mg intravenously every six hours as needed 12.5 mg, Intravenous, at 121-242 mL/hr, Administer over 15-30 Minutes, EVERY 6 HOURS NEEDED, Starting on Sun04/11/23 at 1153, Until Sun04/13/23 at 1427, Other, Nausea/Vomiting (2nd Line) Extravasation Risk Post-op/Post-Proc Sodium chloride 0.45% 1,000 mL with Sodium bicarbonate 150 mEq IV solution (1 source) Start: 04-12-2023 End: 04-13-2023 Sodium chloride 0.45% 1,000 mL with Sodium bicarbonate 150 mEq IV solution traMADol hydrochloride 50 mg oral tablet (20 sources) Opioid Agonist Start: 07-29-2022 End: 04-13-2023 traMADol 50 MG tablet TAKE 1 TABLET FOUR TIMES DAILY NEEDED 0 07/29/2022 04/13/2023 Discontinued (Stop Taking at Discharge) Start: 01-20-2014 take 50 mg by mouth every four hours as needed Tramadol Active 50 MG PO EVERY 4 HOURS NEEDED January 20, 2014 12:00am take 1-2 tablets by mouth three times daily as needed for pain traMADol HCl - 50 MG Oral Tablet 1-2 tabs oral tid prn pain Quantity: 0 Refills: 0 Ordered: 23-Sep-2019 DO Active traZODone hydrochloride 50 mg oral tablet (20 sources) Serotonin Reuptake Inhibitor Start: 04-11-2023 End: 04-13-2023 take 100 mg by mouth once daily at bedtime 100 mg, Oral, DAILY AT BEDTIME, First dose on Sun04/11/23 at 2100, Until Discontinued, Post-op/Post-Proc Start: 01-20-2014 take 150 mg by mouth at bedtim e Trazodone Active 150 MG PO AT BEDTIME January 20, 2014 12:00am take 1 tablet by cl th once daily at bedtime traZODone (Desyrel) 100 mg tablet Take 1 tablet (100 mg) by mouth once daily at bedtime. Active take 2 tablets by mo uth once daily traZODone HCl - 100 MG Oral Tablet TAKE 2 TABLET Daily Refills: 0 Active triamcinolone acetonide 1 mg /ml topical cream (4 sources) Corticosteroid Triamcinolone Ac etonide 0.1 % External Cream APPLY SPARINGLY TO AFFECTED AREA(S) 3 TIMES A DAY Quantity: 80 Refills: 3 Ordered: 23-Sep-2019 DO Active Triamcinolone Ac etonide 0.1 % External Cream APPLY SPARINGLY TO AFFECTED AREA(S) 3 TIMES A DAY Quantity: 80 Refills: 3 Active Problems Active Problems Problem Classification Problem Date Documented Date Episodic/Chronic Acute and unspecified renal failure (11 sources) Injury of kidney; Translations: [Acute kidney failure, unspecified] 05-06-2021 Episodic Acute bronchitis (11 sources) Acute bronchitis; Translations: [Acute bronchitis, unspecified] 11-09-2018 Episodic Administrative/socia l admission (4 sources) Follow-up status; Translations: [Person consulting for explanation of examination or test findings] 02-23-2023 Episodic Allergic reactions (11 sources) Anaphylaxis; Translations: [Anaphylactic shock, unspecified, initial encounter] 11-11-2018 Episodic Anxiety disorders (16 sources) Anxiety; Translations: [Anxiety state, unspecified] Onset: 10-26-2022 10-26-2022 Chronic Diabetes mellitus with complications (20 sources) Hyperglycemia due to type 2 diabetes mellitus; Translations: [Type 2 diabetes mellitus with hyperglycemia] Onset: 12-05-2022 05-06-2021 Chronic Diabetes 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 (20 sources) Diabetes mellitus; Translations: [Diabetes mellitus without mention of complication, type II or unspecified type, not stated as uncontrolled] Onset: 10-26-2022 Chronic Disorders of lipid metabolism (20 sources) Hyperlipidemia; Translations: [Other and unspecified hyperlipidemia] Onset: 10-26-2022 10-26-2022 Chronic Esophageal disorders (5 sources) Gastroesophageal reflux disease; Translations: [Gastro-esophageal reflux disease without esophagitis] Chronic Hypertension with complications and secondary hypertension (9 sources) Hypertensive urgency ; Translations: [Hypertensive urgency] Onset: 04-11-2023 04-11-2023 Chronic Inflammation; infection of eye (except that caused by tuberculosis or sexually transmitteddisease) (11 sources) Acute infectious conjunctivitis; Translations: [Unspecified acute conjunctivitis, unspecified eye] 11-09-2018 Episodic Miscellaneous mental health disorders (6 sources) Eating disorder; Translations: [Eating disorder, unspecified] Onset: 10-26-2022 Chronic Mood disorders (16 sources) Depressive disorder; Translations: [Depressive disorder, not elsewhere classified] Onset: 10-26-2022 10-26-2022 Chronic Other connective tissue disease (9 sources) Other enthesopathy of right foot; Translations: [Tendinitis of ankle] Episodic Other injuries and conditions due to external causes (11 sources) Angioedema; Translations: [Angioneurotic edema, initial encounter] 11-11-2018 Episodic Other nutritional; endocrine; and metabolic disorders (16 sources) Body mass index 40+ - severely obese; Translations: [Morbid obesity] Chronic Other nutritional; endocrine; and metabolic disorders (20 sources) Morbid obesity; Translations: [Morbid (severe) obesity due to excess calories] Onset: 08-24-2022 08-24-2022 Chronic Other nutritional; endocrine; and metabolic disorders (2 sources) Morbid (severe) obesity due to excess calories; Translations: [Morbid (severe) obesity due to excess calories] Onset: 08-24-2022 Chronic Other nutritional; endocrine; and metabolic disorders (3 sources) Overweight; Translations: [Overweight] 02-23-2023 Episodic Other nutritional; endocrine; and metabolic disorders (1 source) Excessive weight loss; Translations: [Abnormal weight loss] 06-28-2023 Episodic Other nutritional; endocrine; and metabolic disorders (3 sources) Weight loss; Translations: [Abnormal weight loss] 07-17-2023 Episodic Other screening for suspected conditions (not mental disorders or infectious disease) (20 sources) Patient encounter status; Translations: [Breast screening, unspecified] Episodic Other upper respiratory disease (16 sources) Allergic rhinitis; Translations: [Allergic rhinitis, cause unspecified] Onset: 10-26-2022 10-26-2022 Chronic Other upper respiratory disease (16 sources) Seasonal allergy; Translations: [Allergic rhinitis, cause unspecified] Onset: 10-26-2022 10-26-2022 Chronic Other upper respiratory disease (11 sources) Acute bronchospasm; Translations: [Acute bronchospasm] 11-11-2018 Episodic Residual codes; unclassified (5 sources) Hypersomnia; Translations: [Hypersomnia, unspecified] Chronic Residual codes; unclassified (1 source) Sleep apnea; Translations: [Sleep apnea, unspecified] Chronic Residual codes; unclassified (14 sources) Obstructive sleep apnea syndrome; Translations: [Obstructive sleep apnea (adult) (pediatric)] Onset: 04-11-2023 02-23-2023 Chronic Residual codes; unclassified (3 sources) Hypoxia; Translations: [Idiopathic sleep related nonobstructive alveolar hypoventilation] 02-23-2023 Chronic Residual codes; unclassified (14 sources) History of sleeve gastrectomy; Translations: [Acquired absence of stomach [part of]] Onset: 04-11-2023 04-12-2023 Episodic Rheumatoid arthritis and related disease (20 sources) Rheumatoid arthritis; Translations: [Rheumatoid arthritis] Onset: 10-26-2022 12-26-2022 Chronic Spondylosis; intervertebral disc disorders; other back problems (16 sources) Displacement of lumbar intervertebral disc without myelopathy; Translations: [Displacement of lumbar intervertebral disc without myelopathy] Onset: 10-26-2022 10-26-2022 Chronic Past or Other Problems Problem Classification Problem Date Documented Da te Episodic/Chronic Fluid and electrolyte disorders (20 sources) Mild dehydration; Translations: [Dehydration] Onset: 04-11-2023 05-06-2021 Episodic Fracture of upper limb (16 sources) Closed fracture of metacarpal bone; Translations: [Closed fracture of metacarpal bone(s), site unspecified] Onset: 10-26-2022 Resolved: 10-26-2022 10-26-2022 Episodic Lymphadenitis (20 sources) Cervical lymphadenopathy; Translations: [Enlargement of lymph nodes] Onset: 12-13-2006 Resolved: 10-26-2022 10-26-2022 Episodic Non-Hodgkin`s lymphoma (16 sources) Malignant lymphoma (clinical); Translations: [Other malignant lymphomas, unspecified site, extranodal and solid organ sites] Onset: 10-26-2022 Resolved: 10-11-2023 10-26-2022 Chronic Other connective tissue disease (16 sources) Plantar fasciitis; Translations: [Plantar fascial fibromatosis] Onset: 10-26-2022 10-26-2022 Episodic Other connective tissue disease (16 sources) Fibromyalgia; Translations: [Myalgia and myositis, unspecified] Onset: 10-26-2022 10-26-2022 Episodic Other connective tissue disease (7 sources) Tendonitis of right ankle; Translations: [Other enthesopathy of right foot and ankle] Onset: 10-26-2022 Resolved: 10-26-2022 10-26-2022 Episodic Other connective tissue disease (9 sources) H/O: rheumatoid arthritis; Translations: [Personal history of other diseases of the musculoskeletal system and connective tissue] Onset: 04-11-2023 04-11-2023 Episodic Other gastrointestinal disorders (2 sources) Bariatric surgery status; Translations: [Bariatric surgery status] Onset: 10-25-2023 Episodic Other nutritional; endocrine; and metabolic disorders (2 sources) Abnormal weight loss; Translations: [Abnormal weight loss] Onset: 10-25-2023 Episodic Other upper respiratory infections (20 sources) Acute upper respiratory infection; Translations: [Acute upper respiratory infections of unspecified site] Onset: 10-26-2022 Resolved: 10-26-2022 Episodic Residual codes; unclassified (16 sources) Insomnia; Translations: [Insomnia, unspecified] Onset: 10-26-2022 10-26-2022 Episodic Spondylosis; intervertebral disc disorders; other back problems (16 sources) Radiculopathy, lumbar region; Translations: [Lumbar radiculitis] Onset: 10-26-2022 10-26-2022 Episodic Unclassified (2 sources) Patient encounter status; Translations: [Screen for colon cancer] Viral infection (20 sources) Infectious mononucleosis; Translations: [Infectious mononucleosis] Onset: 10-26-2022 Resolved: 10-26-2022 04-28-2021 Episodic Results Test Name Value Interpretation Reference Range Facility HEMOGLOBIN A1c WITH eAGon eAG (mmol/L) 10.3 mmol/L Normal [facility] Comment on above: Order Comment: FASTI NG:YES FASTING: YES Performed By: #### 1 [id number] #### [facility] [address], [address] [place] [address] Account Manager [employer]: Leonidas Hunter MD HbA1c (Bld) [Mass fraction] 8.1 % High <5.7 [facility] Comment on above: Order Comment: FASTI NG:YES FASTING: YES Result Comment: For someone without known diabetes, a hemoglobin A1c value of 6.5% or greater indicates that they may have diabetes and this should be confirmed with a follow-up test. For someone with known diabetes, a value <7% indicates that their diabetes is well controlled and a value greater than or equal to 7% indicates suboptimal control. A1c targets should be individualized based on duration of diabetes, age, comorbid conditions, and other considerations. Currently, no consensus exists regarding use of hemoglobin A1c for diagnosis of diabetes for children. Performed By: #### 1 [id number] #### [facility] [address], [address] [place] [address] Account Manager [employer]: Leonidas Hunter MD Magnesium [Mass/Vol] 186 mg/dL Normal [facility] Comment on above: Order Comment: FASTI NG:YES FASTING: YES Performed By: #### 1 [id number] #### [facility] [address], [address] [place] [address] Account Manager [employer]: Leonidas Hunter MD CBC W/Diff, Automatedon 08-30 Absolute Lymph 2.77 X10 3/uL Normal 0.83-4.51 [facility] Comment on above: Performed By: #### L 100.0100, L500.4050 #### [facility] [address] [place], [place], [id number] Absolute Neut 3.1 X10 3/uL Normal 2.0-7.7 [facility] Comment on above: Performed By: #### L 100.0100, L500.4050 #### [facility] [address] [place], [address] Basophils/100 WBC (Bld) 1.3 % High 0-1 [facility] Comment on above: Performed By: #### L 100.0100, L500.4050 #### [facility] [address] [place], [address] Eosinophils/100 WBC (Bld) 1.8 % Normal 0-5 [facility] Comment on above: Performed By: #### L 100.0100, L500.4050 #### [facility] [address] [place], [address] Erythrocyte distribution width (RBC) [Ratio] 13.2 % Normal 11.6-14.6 [facility] Comment on above: Performed By: #### L 100.0100, L500.4050 #### [facility] [address] [place], [address] Hematocrit (Bld) [Volume fraction] 41.9 % Normal 37-47 [facility] Comment on above: Performed By: #### L 100.0100, L500.4050 #### [facility] [address] [place], [address] Hemoglobin (Bld) [Mass/Vol] 13.3 g/dL Normal 12.0-15.0 [facility] Comment on above: Performed By: #### L 100.0100, L500.4050 #### [facility] [address] [place], [address] IG% 0.100 Normal 0.0-0.9 [facility] Comment on above: Result Comment: IG% - Immature Granulocytes (promyelocytes, myelocytes and metamyelocytes) > 1% indicates that a LEFT SHIFT is Present. Performed By: #### L 100.0100, L500.4050 #### [facility] [address] [place], [address] Lymphocytes/100 WBC (Bld) 41.5 % High 19-41 [facility] Comment on above: Performed By: #### L 100.0100, L500.4050 #### [facility] [address] [place], [address] MCH (RBC) [Entitic mass] 28.4 pg Normal 27.0-32.0 [facility] Comment on above: Performed By: #### L 100.0100, L500.4050 #### [facility] [address] [place], [address] MCHC (RBC) [Mass/Vol] 31.7 g/dL Low 32-36 [facility] Comment on above: Performed By: #### L 100.0100, L500.4050 #### [facility] [address] [place], [address] MCV (RBC) [Entitic vol] 89.5 fL Normal 81-99 [facility] Comment on above: Performed By: #### L 100.0100, L500.4050 #### [facility] [address] [place], [address] Monocytes/100 WBC (Bld) 8.8 % Normal 0-10 [facility] Comment on above: Performed By: #### L 100.0100, L500.4050 #### [facility] [address] [place], [address] Neutrophils/100 WBC (Bld) 46.5 % Low 47-70 [facility] Comment on above: Performed By: #### L 100.0100, L500.4050 #### [facility] [address] [place], [address] Nucleated RBC (Bld) [#/Vol] 0 10*3/uL Normal 0-5 [facility] Comment on above: Performed By: #### L 100.0100, L500.4050 #### [facility] [address] [place], [address] Platelet mean volume (Bld) [Entitic vol] 11.1 fL Normal 6.2-12.0 [facility] Comment on above: Performed By: #### L 100.0100, L500.4050 #### [facility] [address] [place], [address] Platelets (Bld) [#/Vol] 277 10*3/uL Normal 150-450 [facility] Comment on above: Performed By: #### L 100.0100, L500.4050 #### [facility] [address] [place], [address] RBC (Bld) [#/Vol] 4.68 10*6/uL Normal 4.2-5.4 [facility] Comment on above: Performed By: #### L 100.0100, L500.4050 #### [facility] [address] [place], [address] RDW SD 43.1 fl Normal 35.1-43.9 [facility] Comment on above: Performed By: #### L 100.0100, L500.4050 #### [facility] [address] [place], [address] WBC (Bld) [#/Vol] 6.7 10*3/uL Normal 4.4-11.0 [facility] Comment on above: Performed By: #### L 100.0100, L500.4050 #### [facility] [address] [place], [address] Comprehensive Metabolic Prof nhon 09-16-2024 Albumin [Mass/Vol] 3.5 g/dL Normal 3.2-5.0 [facility] Comment on above: Performed By: #### L 100.0100, L500.4050 #### [facility] [address] [place], [address] Albumin/Globulin [Mass ratio] 1.0 {ratio} Normal 0.9-2.4 [facility] Comment on above: Performed By: #### L 100.0100, L500.4050 #### [facility] [address] [place], [address] ALK P 91 U/L Normal 45-117 [facility] Comment on above: Performed By: #### L 100.0100, L500.4050 #### [facility] [address] [place], [address] ALT [Catalytic activity/Vol] 15 U/L Normal 13-56 [facility] Comment on above: Performed By: #### L 100.0100, L500.4050 #### [facility] [address] [place], [address] AST [Catalytic activity/Vol] 11 U/L Low 15-37 [facility] Comment on above: Performed By: #### L 100.0100, L500.4050 #### [facility] [address] [place], [address] Bilirubin [Mass/Vol] 1.10 mg/dL High 0.20-1.00 [facility] Comment on above: Result Comment: For patients on eltrombopag therapy, use of Dimension [place] TBIL is not recommended. Performed By: #### L 100.0100, L500.4050 #### [facility] [address] [place], [address] BUN/CRE 20.0 RATIO Normal 10-20 [facility] Comment on above: Performed By: #### L 100.0100, L500.4050 #### [facility] [address] [place], [address] CA,Total 9.3 mg/dL Normal 8.5-10.1 [facility] Comment on above: Performed By: #### L 100.0100, L500.4050 #### [facility] [address] [place], [address] Chloride [Moles/Vol] 107 mmol/L Normal 98-107 [facility] Comment on above: Performed By: #### L 100.0100, L500.4050 #### [facility] [address] [place], [address] CO2 [Moles/Vol] 27.0 mmol/L Normal 21.0-32.0 [facility] Comment on above: Performed By: #### L 100.0100, L500.4050 #### [facility] [address] [place], [address] Creatinine [Mass/Vol] 0.85 mg/dL Normal 0.55-1.02 [facility] Comment on above: Result Comment: The validity of the calculated GFR GFRAA in patients over 70 years has not been determined. Clinical correlation is essential. Performed By: #### L 100.0100, L500.4050 #### [facility] [address] [place], [address] EST GFR - AA 88 mL/min Normal >60 [facility] Comment on above: Result Comment: Afri can [place] GFR Calc Performed By: #### L 100.0100, L500.4050 #### [facility] [address] [place], [address] GAP 6 Normal 5-15 [facility] Comment on above: Performed By: #### L 100.0100, L500.4050 #### [facility] [address] [place], [address] GFR/1.73 sq M.predicted among non-blacks MDRD (S/P/Bld) [Vol rate/Area] 72 mL/min/{1.73_m2} Normal >60 [facility] Comment on above: Result Comment: Non- GFR Calc Performed By: #### L 100.0100, L500.4050 #### [facility] [address] [place], [address] Globulin (S) [Mass/Vol] 3.6 g/dL Normal 2.2-4.2 [facility] Comment on above: Performed By: #### L 100.0100, L500.4050 #### [facility] [address] [place], [address] Glucose [Mass/Vol] 156 mg/dL High 74-106 [facility] Comment on above: Result Comment: Fast ing Glucose result greater than or equal to 126 mg/dL suggests DIABETES MELLITUS per A.D.A. criteria. Performed By: #### L 100.0100, L500.4050 #### [facility] [address] [place], [address] Potassium [Moles/Vol] 4.0 mmol/L Normal 3.5-5.1 [facility] Comment on above: Performed By: #### L 100.0100, L500.4050 #### [facility] [address] [place], [address] Sodium [Moles/Vol] 140 mmol/L Normal 136-145 [facility] Comment on above: Performed By: #### L 100.0100, L500.4050 #### [facility] [address] [place], [address] T PROT 7.1 g/dL Normal 6.4-8.2 [facility] Comment on above: Performed By: #### L 100.0100, L500.4050 #### [facility] [address] [place], [address] Urea nitrogen [Mass/Vol] 17 mg/dL Normal 7-18 [facility] Comment on above: Performed By: #### L 100.0100, L500.4050 #### [facility] [address] [place], [address] CBC W/Diff, Automatedon 11-2 Absolute Lymph 2.69 X10 3/uL Normal 0.83-4.51 [facility] Comment on above: Performed By: #### L 501.9985, L500.4100 #### [facility] [address] [place], [address] Absolute Neut 2.5 X10 3/uL Normal 2.0-7.7 [facility] Comment on above: Performed By: #### L 501.9985, L500.4100 #### [facility] [address] [place], [address] Basophils/100 WBC (Bld) 1.7 % High 0-1 [facility] Comment on above: Performed By: #### L 501.9985, L500.4100 #### [facility] [address] [place], [address] Eosinophils/100 WBC (Bld) 2.1 % Normal 0-5 [facility] Comment on above: Performed By: #### L 501.9985, L500.4100 #### [facility] [address] [place], [address] Erythrocyte distribution width (RBC) [Ratio] 13.0 % Normal 11.6-14.6 [facility] Comment on above: Performed By: #### L 501.9985, L500.4100 #### [facility] [address] [place], [address] Hematocrit (Bld) [Volume fraction] 37.8 % Normal 37-47 [facility] Comment on above: Performed By: #### L 501.9985, L500.4100 #### [facility] [address] [place], [address] Hemoglobin (Bld) [Mass/Vol] 11.8 g/dL Low 12.0-15.0 [facility] Comment on above: Performed By: #### L 501.9985, L500.4100 #### [facility] [address] [place], [address] IG% 0.200 Normal 0.0-0.9 [facility] Comment on above: Result Comment: IG% - Immature Granulocytes (promyelocytes, myelocytes and metamyelocytes) > 1% indicates that a LEFT SHIFT is Present. Performed By: #### L 501.9985, L500.4100 #### [facility] [address] [place], [address] Lymphocytes/100 WBC (Bld) 46.1 % High 19-41 [facility] Comment on above: Performed By: #### L 501.9985, L500.4100 #### [facility] [address] [place], [address] MCH (RBC) [Entitic mass] 28.0 pg Normal 27.0-32.0 [facility] Comment on above: Performed By: #### L 501.9985, L500.4100 #### [facility] [address] [place], [address] MCHC (RBC) [Mass/Vol] 31.2 g/dL Low 32-36 [facility] Comment on above: Performed By: #### L 501.9985, L500.4100 #### [facility] [address] [place], [address] MCV (RBC) [Entitic vol] 89.8 fL Normal 81-99 [facility] Comment on above: Performed By: #### L 501.9985, L500.4100 #### [facility] [address] [place], [address] Monocytes/100 WBC (Bld) 7.7 % Normal 0-10 [facility] Comment on above: Performed By: #### L 501.9985, L500.4100 #### [facility] [address] [place], [address] Neutrophils/100 WBC (Bld) 42.2 % Low 47-70 [facility] Comment on above: Performed By: #### L 501.9985, L500.4100 #### [facility] [address] [place], [address] Nucleated RBC (Bld) [#/Vol] 0 10*3/uL Normal 0-5 [facility] Comment on above: Performed By: #### L 501.9985, L500.4100 #### [facility] [address] [place], [address] Platelet mean volume (Bld) [Entitic vol] 11.7 fL Normal 6.2-12.0 [facility] Comment on above: Performed By: #### L 501.9985, L500.4100 #### [facility] [address] [place], [address] Platelets (Bld) [#/Vol] 233 10*3/uL Normal 150-450 [facility] Comment on above: Performed By: #### L 501.9985, L500.4100 #### [facility] [address] [place], [address] RBC (Bld) [#/Vol] 4.21 10*6/uL Normal 4.2-5.4 [facility] Comment on above: Performed By: #### L 501.9985, L500.4100 #### [facility] [address] [place], [address] RDW SD 42.7 fl Normal 35.1-43.9 [facility] Comment on above: Performed By: #### L 501.9985, L500.4100 #### [facility] [address] [place], [address] WBC (Bld) [#/Vol] 5.8 10*3/uL Normal 4.4-11.0 [facility] Comment on above: Performed By: #### L 501.9985, L500.4100 #### [facility] [address] [place], [address] Comprehensive Metabolic Prof ilon 06-27-2024 Albumin [Mass/Vol] 3.2 g/dL Normal 3.2-5.0 [facility] Comment on above: Performed By: #### L 501.9985, L500.4100 #### [facility] [address] [place], [address] Albumin/Globulin [Mass ratio] 1.0 {ratio} Normal 0.9-2.4 [facility] Comment on above: Performed By: #### L 501.9985, L500.4100 #### [facility] [address] [place], [address] ALK P 90 U/L Normal 45-117 [facility] Comment on above: Performed By: #### L 501.9985, L500.4100 #### [facility] [address] [place], [address] ALT [Catalytic activity/Vol] 12 U/L Low 13-56 [facility] Comment on above: Performed By: #### L 501.9985, L500.4100 #### [facility] [address] [place], [address] AST [Catalytic activity/Vol] 13 U/L Low 15-37 [facility] Comment on above: Performed By: #### L 501.9985, L500.4100 #### [facility] [address] [place], [address] Bilirubin [Mass/Vol] 1.10 mg/dL High 0.20-1.00 [facility] Comment on above: Result Comment: For patients on eltrombopag therapy, use of Dimension [place] TBIL is not recommended. Performed By: #### L 501.9985, L500.4100 #### [facility] [address] [place], [address] BUN/CRE 18.1 RATIO Normal 10-20 [facility] Comment on above: Performed By: #### L 501.9985, L500.4100 #### [facility] [address] [place], [address] CA,Total 8.6 mg/dL Normal 8.5-10.1 [facility] Comment on above: Performed By: #### L 501.9985, L500.4100 #### [facility] [address] [place], [address] Chloride [Moles/Vol] 108 mmol/L High 98-107 [facility] Comment on above: Performed By: #### L 501.9985, L500.4100 #### [facility] [address] [place], [address] CO2 [Moles/Vol] 24.0 mmol/L Normal 21.0-32.0 [facility] Comment on above: Performed By: #### L 501.9985, L500.4100 #### [facility] [address] [place], [address] Creatinine [Mass/Vol] 0.99 mg/dL Normal 0.55-1.02 [facility] Comment on above: Result Comment: The validity of the calculated GFR GFRAA in patients over 70 years has not been determined. Clinical correlation is essential. Performed By: #### L 501.9985, L500.4100 #### [facility] [address] [place], [address] EST GFR - AA 73 mL/min Normal >60 [facility] Comment on above: Result Comment: Afri can [place] GFR Calc Performed By: #### L 501.9985, L500.4100 #### [facility] [address] [place], [address] GAP 7 Normal 5-15 [facility] Comment on above: Performed By: #### L 501.9985, L500.4100 #### [facility] [address] [place], [address] GFR/1.73 sq M.predicted among non-blacks MDRD (S/P/Bld) [Vol rate/Area] 61 mL/min/{1.73_m2} Normal >60 [facility] Comment on above: Result Comment: Non- GFR Calc Performed By: #### L 501.9985, L500.4100 #### [facility] [address] [place], [address] Globulin (S) [Mass/Vol] 3.1 g/dL Normal 2.2-4.2 [facility] Comment on above: Performed By: #### L 501.9985, L500.4100 #### [facility] [address] [place], [address] Glucose [Mass/Vol] 207 mg/dL High 74-106 [facility] Comment on above: Result Comment: Gluc ose result greater than or equal to 200 mg/dL suggests DIABETES MELLITUS per A.D.A. criteria. Performed By: #### L 501.9985, L500.4100 #### [facility] [address] [place], [address] Potassium [Moles/Vol] 4.2 mmol/L Normal 3.5-5.1 [facility] Comment on above: Performed By: #### L 501.9985, L500.4100 #### [facility] [address] [place], [address] Sodium [Moles/Vol] 139 mmol/L Normal 136-145 [facility] Comment on above: Performed By: #### L 501.9985, L500.4100 #### [facility] [address] [place], [address] T PROT 6.3 g/dL Low 6.4-8.2 [facility] Comment on above: Performed By: #### L 501.9985, L500.4100 #### [facility] [address] [place], [address] Urea nitrogen [Mass/Vol] 18 mg/dL Normal 7-18 [facility] Comment on above: Performed By: #### L 501.9985, L500.4100 #### [facility] [address] [place], [address] VITAMIN Aon 05-10-2024 VITAMIN A 49.8 Normal [facility] Comment on above: Result Comment: Refe rence range: 20.1 to 62.0 Unit: ug/dL (NOTE) Reference intervals for vitamin A determined from [facility] internal studies. Individuals with vitamin A less than 20 ug/dL are considered vitamin A deficient and those with serum concentrations less than 10 ug/dL are considered severely deficient. This test was developed and its performance characteristics determined by [facility]. It has not been cleared or approved by the Food and Drug Administration. PERFORMED AT [facility] Performed By: #### B 12F, ACBC, CMPF, FE2 #### Testing performed at [facility] [address] [place] [address] #### LVITA, LVITE #### Testing performed at [facility] VITAMIN Javid 05-10-2024 VITAMIN E ALPHA 15.0 Normal [facility] Comment on above: Result Comment: Refe rence range: 7.0 to 25.1 Unit: mg/L (NOTE) This test was developed and its performance characteristics determined by [facility]. It has not been cleared or approved by the Food and Drug Administration. Performed By: #### B 12F, ACBC, CMPF, FE2 #### Testing performed at [address] [address] #### LVITA, LVITE #### Testing performed at [facility] VITAMIN E GAMMA 2.6 Normal [facility] Comment on above: Result Comment: Refe rence range: 0.5 to 5.5 Unit: mg/L (NOTE) This test was developed and its performance characteristics determined by [facility]. It has not been cleared or approved by the Food and Drug Administration. Reference intervals for alpha and gamma-tocopherol determined from National Health and Nutrition Examination Survey, 4566-7990. Individuals with alpha-tocopherol levels less than 5.0 mg/L are considered vitamin E deficient. PERFORMED AT [facility] Performed By: #### B 12F, ACBC, CMPF, FE2 #### Testing performed at [address] [address] #### LVITA, LVITE #### Testing performed at [facility] VIT.B1 THIAMINE-BLDon 2023 VIT.B1 THIAMINE-BLD 123.6 Normal [facility] Comment on above: Result Comment: Refe rence range: 66.5 to 200.0 Unit: nmol/L (NOTE) This test was developed and its performance characteristics determined by [facility]. It has not been cleared or approved by the Food and Drug Administration. PERFORMED AT [facility] Performed By: #### L VB1 #### Testing performed at [facility] 25 0H VITAMIN D LEVELon 25 0H VITAMIN D LEVEL 36.3 NG/ML Normal [facility] Comment on above: Result Comment: DEFICIENT <20 NG/ML INSUFFICIENT 20-<30 NG/ML SUFFICIENT 30-100 NG/ML POTENTIAL TOXICITY >100 NG/ML Performed By: #### V ITD #### Testing performed at [address] [address] B12 FOLATEon 05-06-2024 Cobalamin (Vitamin B12) [Mass/Vol] 471 pg/mL Normal 239-931 [facility] Comment on above: Performed By: #### B 12F, ACBC, CMPF, FE2 #### [place] [address] #### LVITA, LVITE #### Testing performed at [facility] FOLATE 11.6 NG/ML Normal 2.56-20.0 [facility] Comment on above: Performed By: #### B 12F, ACBC, CMPF, FE2 #### [place] [address] #### LVITA, LVITE #### Testing performed at [facility] CBCon 05-06-2024 ABSOLUTE BAS 0.1 10*3/uL Normal 0.0-0.2 [facility] Comment on above: Performed By: #### B 12F, ACBC, CMPF, FE2 #### [place] [address] #### LVITA, LVITE #### Testing performed at [facility] ABSOLUTE EOS 0.2 10*3/uL Normal 0.0-0.7 [facility] Comment on above: Performed By: #### B 12F, ACBC, CMPF, FE2 #### [place] [address] #### LVITA, LVITE #### Testing performed at [facility] ABSOLUTE NEUTROPHIL COUNT 4.5 10*3/uL Normal 1.4-6.5 [facility] Comment on above: Performed By: #### B 12F, ACBC, CMPF, FE2 #### [place] [address] #### LVITA, LVITE #### Testing performed at [facility] Basophils/100 WBC (Bld) 1.1 % Normal 0.0-2.0 [facility] Comment on above: Performed By: #### B 12F, ACBC, CMPF, FE2 #### [place] [address] #### LVITA, LVITE #### Testing performed at [facility] DTYPE AUTO DIFF Normal [facility] Comment on above: Performed By: #### B 12F, ACBC, CMPF, FE2 #### [place] [address] #### LVITA, LVITE #### Testing performed at [facility] Eosinophils/100 WBC (Bld) 2.0 % Normal 0.0-11.0 [facility] Comment on above: Performed By: #### B 12F, ACBC, CMPF, FE2 #### [place] [address] #### LVITA, LVITE #### Testing performed at [facility] Lymphocytes (Bld) [#/Vol] 3.2 10*3/uL Normal 1.2-3.4 [facility] Comment on above: Performed By: #### B 12F, ACBC, CMPF, FE2 #### [place] [address] #### LVITA, LVITE #### Testing performed at [facility] Lymphocytes/100 WBC (Bld) 36.4 % Normal 20.0-55.0 [facility] Comment on above: Performed By: #### B 12F, ACBC, CMPF, FE2 #### [place] [address] #### LVITA, LVITE #### Testing performed at [facility] Monocytes (Bld) [#/Vol] 0.9 10*3/uL High 0.0-0.7 [facility] Comment on above: Performed By: #### B 12F, ACBC, CMPF, FE2 #### [place] [address] #### LVITA, LVITE #### Testing performed at [facility] Monocytes/100 WBC (Bld) 10.1 % High 0.0-10.0 [facility] Comment on above: Performed By: #### B 12F, ACBC, CMPF, FE2 #### [place] [address] #### LVITA, LVITE #### Testing performed at [facility] Neutrophils/100 WBC (Bld) 50.4 % Normal 37.0-75.0 [facility] Comment on above: Performed By: #### B 12F, ACBC, CMPF, FE2 #### [place] [address] #### LVITA, LVITE #### Testing performed at [facility] Erythrocyte distribution width (RBC) [Ratio] 14.1 % Normal 11.5-14.5 [facility] Comment on above: Performed By: #### B 12F, ACBC, CMPF, FE2 #### [place] [address] #### LVITA, LVITE #### Testing performed at [facility] Hematocrit (Bld) [Volume fraction] 39.0 % Normal 36.0-48.0 [facility] Comment on above: Performed By: #### B 12F, ACBC, CMPF, FE2 #### [place] [address] #### LVITA, LVITE #### Testing performed at [facility] Hemoglobin (Bld) [Mass/Vol] 12.5 g/dL Normal 12.0-16.0 [facility] Comment on above: Performed By: #### B 12F, ACBC, CMPF, FE2 #### [place] [address] #### LVITA, LVITE #### Testing performed at [facility] MCH (RBC) [Entitic mass] 28.4 pg Normal 26.0-35.0 [facility] Comment on above: Performed By: #### B 12F, ACBC, CMPF, FE2 #### [place] [address] #### LVITA, LVITE #### Testing performed at [facility] MCHC (RBC) [Mass/Vol] 32.1 g/dL Normal 27.0-37.0 [facility] Comment on above: Performed By: #### B 12F, ACBC, CMPF, FE2 #### [place] [address] #### LVITA, LVITE #### Testing performed at [facility] MCV (RBC) [Entitic vol] 88.5 fL Normal 80.0-100.0 [facility] Comment on above: Performed By: #### B 12F, ACBC, CMPF, FE2 #### [place] [address] #### LVITA, LVITE #### Testing performed at [facility] Platelet mean volume (Bld) [Entitic vol] 9.3 fL Normal 7.4-11.0 [facility] Comment on above: Performed By: #### B 12F, ACBC, CMPF, FE2 #### [place] [address] #### LVITA, LVITE #### Testing performed at [facility] Platelets (Bld) [#/Vol] 241 10*3/uL Normal 130-400 [facility] Comment on above: Performed By: #### B 12F, ACBC, CMPF, FE2 #### [place] [address] #### LVITA, LVITE #### Testing performed at [facility] RBC (Bld) [#/Vol] 4.41 10*6/uL Normal 4.0-5.4 [facility] Comment on above: Performed By: #### B 12F, ACBC, CMPF, FE2 #### [place] [address] #### LVITA, LVITE #### Testing performed at [facility] WBC (Bld) [#/Vol] 8.9 10*3/uL Normal 3.6-11.0 [facility] Comment on above: Performed By: #### B 12F, ACBC, CMPF, FE2 #### [place] [address] #### LVITA, LVITE #### Testing performed at [facility] CMP FASTINGon 05-06-2024 A:G RATIO 1.5 RATIO Normal [facility] Comment on above: Performed By: #### B 12F, ACBC, CMPF, FE2 #### [place] [address] #### LVITA, LVITE #### Testing performed at [facility] ALBUMIN 4.3 G/dl Normal 3.5-5.0 [facility] Comment on above: Performed By: #### B 12F, ACBC, CMPF, FE2 #### [place] [address] #### LVITA, LVITE #### Testing performed at [facility] ALP [Catalytic activity/Vol] 93 U/L Normal 38-126 [facility] Comment on above: Performed By: #### B 12F, ACBC, CMPF, FE2 #### [place] [address] #### LVITA, LVITE #### Testing performed at [facility] ALT [Catalytic activity/Vol] 13 U/L Normal <35 [facility] Comment on above: Performed By: #### B 12F, ACBC, CMPF, FE2 #### [place] [address] #### LVITA, LVITE #### Testing performed at [facility] AST [Catalytic activity/Vol] 31 U/L Normal 14-36 [facility] Comment on above: Performed By: #### B 12F, ACBC, CMPF, FE2 #### [place] [address] #### LVITA, LVITE #### Testing performed at [facility] Bilirubin [Mass/Vol] 1.5 mg/dL High 0.2-1.3 [facility] Comment on above: Performed By: #### B 12F, ACBC, CMPF, FE2 #### Testing performed at [address] [address] #### LVITA, LVITE #### Testing performed at [facility] Calcium [Mass/Vol] 9.5 mg/dL Normal 8.4-10.2 [facility] Comment on above: Performed By: #### B 12F, ACBC, CMPF, FE2 #### Testing performed at [address] [address] #### LVITA, LVITE #### Testing performed at [facility] Chloride [Moles/Vol] 106 mmol/L Normal 98-107 [facility] Comment on above: Result Comment: Gilberto ruiz note: Triglyceride levels of 600mg/dL or higher may positively bias chloride results by approximately 2.1 mmol Performed By: #### B 12F, ACBC, CMPF, FE2 #### Testing performed at [address] [address] #### LVITA, LVITE #### Testing performed at [facility] CO2 [Moles/Vol] 30 mmol/L Normal 22-30 [facility] Comment on above: Performed By: #### B 12F, ACBC, CMPF, FE2 #### Testing performed at [address] [address] #### LVITA, LVITE #### Testing performed at [facility] Creatinine [Mass/Vol] 0.92 mg/dL Normal 0.70-1.20 [facility] Comment on above: Performed By: #### B 12F, ACBC, CMPF, FE2 #### Testing performed at [address] [address] #### LVITA, LVITE #### Testing performed at [facility] EST. GFR, 80 ml/min/1.73sq.m Normal [facility] Comment on above: Performed By: #### B 12F, ACBC, CMPF, FE2 #### Testing performed at [address] [address] #### LVITA, LVITE #### Testing performed at [facility] EST. GFR,Non 66 ml/min/1.73sq.m Normal [facility] Comment on above: Performed By: #### B 12F, ACBC, CMPF, FE2 #### [place] [address] #### LVITA, LVITE #### Testing performed at [facility] GFR Information Average GFR for 50-59 years old = 93. Normal [facility] Comment on above: Result Comment: Projects Manager jona Kidney disease, GFR = <60. Kidney failure, GFR = <15. The GFR estimate is not adjusted for extreme body surface area or acute process, nor has it been validated for women or ethnic groups other than and . Performed By: #### B 12F, ACBC, CMPF, FE2 #### [place] [address] #### LVITA, LVITE #### Testing performed at [facility] Glucose [Mass/Vol] 140 mg/dL High 70-100 [facility] Comment on above: Result Comment: NORMAL <100 mg/dL PREDIABETES 101-126 mg/dL DIABETES 126 mg/dL or higher Performed By: #### B 12F, ACBC, CMPF, FE2 #### [place] [address] #### LVITA, LVITE #### Testing performed at [facility] Potassium [Moles/Vol] 4.2 mmol/L Normal 3.5-5.1 [facility] Comment on above: Performed By: #### B 12F, ACBC, CMPF, FE2 #### [place] [address] #### LVITA, LVITE #### Testing performed at [facility] Protein [Mass/Vol] 7.2 g/dL Normal 6.3-8.2 [facility] Comment on above: Performed By: #### B 12F, ACBC, CMPF, FE2 #### [place] [address] #### LVITA, LVITE #### Testing performed at [facility] Sodium [Moles/Vol] 138 mmol/L Normal 137-145 [facility] Comment on above: Performed By: #### B 12F, ACBC, CMPF, FE2 #### Testing performed at [address] [address] #### LVITA, LVITE #### Testing performed at [facility] Urea nitrogen [Mass/Vol] 13 mg/dL Normal 7-20 [facility] Comment on above: Performed By: #### B 12F, ACBC, CMPF, FE2 #### Testing performed at [address] [address] #### LVITA, LVITE #### Testing performed at [facility] IRONon 05-06-2024 Iron [Mass/Vol] 65 ug/dL Normal 37-170 [facility] Comment on above: Performed By: #### B 12F, ACBC, CMPF, FE2 #### Testing performed at [address] [address] #### LVITA, LVITE #### Testing performed at [facility] CBC W/Diff, Automatedon 03-30 Absolute Lymph 2.70 X10 3/uL Normal 0.83-4.51 [facility] Comment on above: Performed By: #### L 100.0100, L500.4050 #### [facility] [address] [place], [address] Absolute Neut 2.4 X10 3/uL Normal 2.0-7.7 [facility] Comment on above: Performed By: #### L 100.0100, L500.4050 #### [facility] [address] [place], [address] Basophils/100 WBC (Bld) 1.4 % High 0-1 [facility] Comment on above: Performed By: #### L 100.0100, L500.4050 #### [facility] [address] [place], [address] Eosinophils/100 WBC (Bld) 2.6 % Normal 0-5 [facility] Comment on above: Performed By: #### L 100.0100, L500.4050 #### [facility] [address] [place], [address] Erythrocyte distribution width (RBC) [Ratio] 13.7 % Normal 11.6-14.6 [facility] Comment on above: Performed By: #### L 100.0100, L500.4050 #### [facility] [address] [place], [address] Hematocrit (Bld) [Volume fraction] 36.9 % Low 37-47 [facility] Comment on above: Performed By: #### L 100.0100, L500.4050 #### [facility] [address] [place], [address] Hemoglobin (Bld) [Mass/Vol] 11.3 g/dL Low 12.0-15.0 [facility] Comment on above: Performed By: #### L 100.0100, L500.4050 #### [facility] [address] [place], [address] IG% 0.200 Normal 0.0-0.9 [facility] Comment on above: Result Comment: IG% - Immature Granulocytes (promyelocytes, myelocytes and metamyelocytes) > 1% indicates that a LEFT SHIFT is Present. Performed By: #### L 100.0100, L500.4050 #### [facility] [address] [place], [address] Lymphocytes/100 WBC (Bld) 46.1 % High 19-41 [facility] Comment on above: Performed By: #### L 100.0100, L500.4050 #### [facility] [address] [place], [address] MCH (RBC) [Entitic mass] 28.3 pg Normal 27.0-32.0 [facility] Comment on above: Performed By: #### L 100.0100, L500.4050 #### [facility] [address] [place], [address] MCHC (RBC) [Mass/Vol] 30.6 g/dL Low 32-36 [facility] Comment on above: Performed By: #### L 100.0100, L500.4050 #### [facility] [address] [place], [address] MCV (RBC) [Entitic vol] 92.5 fL Normal 81-99 [facility] Comment on above: Performed By: #### L 100.0100, L500.4050 #### [facility] [address] [place], [address] Monocytes/100 WBC (Bld) 9.6 % Normal 0-10 [facility] Comment on above: Performed By: #### L 100.0100, L500.4050 #### [facility] [address] [place], [address] Neutrophils/100 WBC (Bld) 40.1 % Low 47-70 [facility] Comment on above: Performed By: #### L 100.0100, L500.4050 #### [facility] [address] [place], [address] Nucleated RBC (Bld) [#/Vol] 0 10*3/uL Normal 0-5 [facility] Comment on above: Performed By: #### L 100.0100, L500.4050 #### [facility] [address] [place], [address] Platelet mean volume (Bld) [Entitic vol] 11.3 fL Normal 6.2-12.0 [facility] Comment on above: Performed By: #### L 100.0100, L500.4050 #### [facility] [address] [place], [address] Platelets (Bld) [#/Vol] 244 10*3/uL Normal 150-450 [facility] Comment on above: Performed By: #### L 100.0100, L500.4050 #### [facility] [address] [place], [address] RBC (Bld) [#/Vol] 3.99 10*6/uL Low 4.2-5.4 [facility] Comment on above: Performed By: #### L 100.0100, L500.4050 #### [facility] [address] [place], [address] RDW SD 46.8 fl High 35.1-43.9 [facility] Comment on above: Performed By: #### L 100.0100, L500.4050 #### [facility] [address] [place], [address] WBC (Bld) [#/Vol] 5.9 10*3/uL Normal 4.4-11.0 [facility] Comment on above: Performed By: #### L 100.0100, L500.4050 #### [facility] [address] [place], [address] Comprehensive Metabolic Prof [facility] 04-08-2024 Albumin [Mass/Vol] 3.1 g/dL Low 3.2-5.0 [facility] Comment on above: Performed By: #### L 501.9985, L500.4100 #### [facility] [address] [place], [address] Albumin/Globulin [Mass ratio] 1.0 {ratio} Normal 0.9-2.4 [facility] Comment on above: Performed By: #### L 501.9985, L500.4100 #### [facility] [address] [place], [address] ALK P 88 U/L Normal 45-117 [facility] Comment on above: Performed By: #### L 501.9985, L500.4100 #### [facility] [address] [place], [address] ALT [Catalytic activity/Vol] 12 U/L Low 13-56 [facility] Comment on above: Performed By: #### L 501.9985, L500.4100 #### [facility] [address] [place], [address] AST [Catalytic activity/Vol] 10 U/L Low 15-37 [facility] Comment on above: Performed By: #### L 501.9985, L500.4100 #### [facility] [address] [place], [address] Bilirubin [Mass/Vol] 1.00 mg/dL Normal 0.20-1.00 [facility] Comment on above: Result Comment: For patients on eltrombopag therapy, use of Dimension [place] TBIL is not recommended. Performed By: #### L 501.9985, L500.4100 #### [facility] [address] [place], [address] BUN/CRE 11.7 RATIO Normal 10-20 [facility] Comment on above: Performed By: #### L 501.9985, L500.4100 #### [facility] [address] [place], [address] CA,Total 8.6 mg/dL Normal 8.5-10.1 [facility] Comment on above: Performed By: #### L 501.9985, L500.4100 #### [facility] [address] [place], [address] Chloride [Moles/Vol] 107 mmol/L Normal 98-107 [facility] Comment on above: Performed By: #### L 501.9985, L500.4100 #### [facility] [address] [place], [address] CO2 [Moles/Vol] 29.0 mmol/L Normal 21.0-32.0 [facility] Comment on above: Performed By: #### L 501.9985, L500.4100 #### [facility] [address] [place], [address] Creatinine [Mass/Vol] 0.77 mg/dL Normal 0.55-1.02 [facility] Comment on above: Result Comment: The validity of the calculated GFR GFRAA in patients over 70 years has not been determined. Clinical correlation is essential. Performed By: #### L 501.9985, L500.4100 #### [facility] [address] [place], [address] EST GFR - AA 99 mL/min Normal >60 [facility] Comment on above: Result Comment: Afri can [place] GFR Calc Performed By: #### L 501.9985, L500.4100 #### [facility] [address] [place], [address] GAP 3 Low 5-15 [facility] Comment on above: Performed By: #### L 501.9985, L500.4100 #### [facility] [address] [place], [address] GFR/1.73 sq M.predicted among non-blacks MDRD (S/P/Bld) [Vol rate/Area] 82 mL/min/{1.73_m2} Normal >60 [facility] Comment on above: Result Comment: Non- GFR Calc Performed By: #### L 501.9985, L500.4100 #### [facility] [address] [place], [address] Globulin (S) [Mass/Vol] 3.1 g/dL Normal 2.2-4.2 [facility] Comment on above: Performed By: #### L 501.9985, L500.4100 #### [facility] [address] [place], [address] Glucose [Mass/Vol] 155 mg/dL High 74-106 [facility] Comment on above: Result Comment: Fast ing Glucose result greater than or equal to 126 mg/dL suggests DIABETES MELLITUS per A.D.A. criteria. Performed By: #### L 501.9985, L500.4100 #### [facility] [address] [place], [address] Potassium [Moles/Vol] 3.8 mmol/L Normal 3.5-5.1 [facility] Comment on above: Performed By: #### L 501.9985, L500.4100 #### [facility] [address] [place], [address] Sodium [Moles/Vol] 139 mmol/L Normal 136-145 [facility] Comment on above: Performed By: #### L 501.9985, L500.4100 #### [facility] [address] [place], [address] T PROT 6.2 g/dL Low 6.4-8.2 [facility] Comment on above: Performed By: #### L 501.9985, L500.4100 #### [facility] [address] [place], [address] Urea nitrogen [Mass/Vol] 9 mg/dL Normal 7-18 [facility] Comment on above: Performed By: #### L 501.9985, L500.4100 #### [facility] [address] [place], [address] CBC W/Diff, Automatedon 06- Absolute Lymph 3.21 X10 3/uL Normal 0.83-4.51 [facility] Comment on above: Performed By: #### L 500.4050, L100.0100 #### [facility] [address] [place], [address] Absolute Neut 2.1 X10 3/uL Normal 2.0-7.7 [facility] Comment on above: Performed By: #### L 500.4050, L100.0100 #### [facility] [address] [place], [address] Basophils/100 WBC (Bld) 1.0 % Normal 0-1 [facility] Comment on above: Performed By: #### L 500.4050, L100.0100 #### [facility] [address] [place], [address] Eosinophils/100 WBC (Bld) 2.9 % Normal 0-5 [facility] Comment on above: Performed By: #### L 500.4050, L100.0100 #### [facility] [address] [place], [address] Erythrocyte distribution width (RBC) [Ratio] 13.2 % Normal 11.6-14.6 [facility] Comment on above: Performed By: #### L 500.4050, L100.0100 #### [facility] [address] [place], [address] Hematocrit (Bld) [Volume fraction] 41.8 % Normal 37-47 [facility] Comment on above: Performed By: #### L 500.4050, L100.0100 #### [facility] [address] [place], [address] Hemoglobin (Bld) [Mass/Vol] 12.9 g/dL Normal 12.0-15.0 [facility] Comment on above: Performed By: #### L 500.4050, L100.0100 #### [facility] [address] [place], [address] IG% 0.200 Normal 0.0-0.9 [facility] Comment on above: Result Comment: IG% - Immature Granulocytes (promyelocytes, myelocytes and metamyelocytes) > 1% indicates that a LEFT SHIFT is Present. Performed By: #### L 500.4050, L100.0100 #### [facility] [address] [place], [address] Lymphocytes/100 WBC (Bld) 54.5 % High 19-41 [facility] Comment on above: Performed By: #### L 500.4050, L100.0100 #### [facility] [address] [place], [address] MCH (RBC) [Entitic mass] 28.0 pg Normal 27.0-32.0 [facility] Comment on above: Performed By: #### L 500.4050, L100.0100 #### [facility] [address] [place], [address] MCHC (RBC) [Mass/Vol] 30.9 g/dL Low 32-36 [facility] Comment on above: Performed By: #### L 500.4050, L100.0100 #### [facility] [address] [place], [address] MCV (RBC) [Entitic vol] 90.9 fL Normal 81-99 [facility] Comment on above: Performed By: #### L 500.4050, L100.0100 #### [facility] [address] [place], [address] Monocytes/100 WBC (Bld) 6.5 % Normal 0-10 [facility] Comment on above: Performed By: #### L 500.4050, L100.0100 #### [facility] [address] [place], [address] Neutrophils/100 WBC (Bld) 34.9 % Low 47-70 [facility] Comment on above: Performed By: #### L 500.4050, L100.0100 #### [facility] [address] [place], [address] Nucleated RBC (Bld) [#/Vol] 0 10*3/uL Normal 0-5 [facility] Comment on above: Performed By: #### L 500.4050, L100.0100 #### [facility] [address] [place], [address] Platelet mean volume (Bld) [Entitic vol] 11.5 fL Normal 6.2-12.0 [facility] Comment on above: Performed By: #### L 500.4050, L100.0100 #### [facility] [address] [place], [address] Platelets (Bld) [#/Vol] 266 10*3/uL Normal 150-450 [facility] Comment on above: Performed By: #### L 500.4050, L100.0100 #### [facility] [address] [place], [address] RBC (Bld) [#/Vol] 4.60 10*6/uL Normal 4.2-5.4 [facility] Comment on above: Performed By: #### L 500.4050, L100.0100 #### [facility] [address] [place], [address] RDW SD 44.3 fl High 35.1-43.9 [facility] Comment on above: Performed By: #### L 500.4050, L100.0100 #### [facility] [address] [place], [address] WBC (Bld) [#/Vol] 5.9 10*3/uL Normal 4.4-11.0 [facility] Comment on above: Performed By: #### L 500.4050, L100.0100 #### [facility] [address] [place], [address] Comprehensive Metabolic Prof ilon 01-14-2024 Albumin [Mass/Vol] 3.5 g/dL Normal 3.2-5.0 [facility] Comment on above: Performed By: #### L 500.4050, L100.0100 #### [facility] [address] [place], [address] Albumin/Globulin [Mass ratio] 1.0 {ratio} Normal 0.9-2.4 [facility] Comment on above: Performed By: #### L 500.4050, L100.0100 #### [facility] [address] [place], [address] ALK P 101 U/L Normal 45-117 [facility] Comment on above: Performed By: #### L 500.4050, L100.0100 #### [facility] [address] [place], [address] ALT [Catalytic activity/Vol] 16 U/L Normal 13-56 [facility] Comment on above: Performed By: #### L 500.4050, L100.0100 #### [facility] [address] [place], [address] AST [Catalytic activity/Vol] 18 U/L Normal 15-37 [facility] Comment on above: Performed By: #### L 500.4050, L100.0100 #### [facility] [address] [place], [address] Bilirubin [Mass/Vol] 1.00 mg/dL Normal 0.20-1.00 [facility] Comment on above: Result Comment: For patients on eltrombopag therapy, use of Dimension [place] TBIL is not recommended. Performed By: #### L 500.4050, L100.0100 #### [facility] [address] [place], [address] BUN/CRE 17.3 RATIO Normal 10-20 [facility] Comment on above: Performed By: #### L 500.4050, L100.0100 #### [facility] [address] [place], [address] CA,Total 9.2 mg/dL Normal 8.5-10.1 [facility] Comment on above: Performed By: #### L 500.4050, L100.0100 #### [facility] [address] [place], [address] Chloride [Moles/Vol] 106 mmol/L Normal 98-107 [facility] Comment on above: Performed By: #### L 500.4050, L100.0100 #### [facility] [address] [place], [address] CO2 [Moles/Vol] 28.0 mmol/L Normal 21.0-32.0 [facility] Comment on above: Performed By: #### L 500.4050, L100.0100 #### [facility] [address] [place], [address] Creatinine [Mass/Vol] 0.81 mg/dL Normal 0.55-1.02 [facility] Comment on above: Result Comment: The validity of the calculated GFR GFRAA in patients over 70 years has not been determined. Clinical correlation is essential. Performed By: #### L 500.4050, L100.0100 #### [facility] [address] [place], [address] EST GFR - AA 93 mL/min Normal >60 [facility] Comment on above: Result Comment: Afri can [place] GFR Calc Performed By: #### L 500.4050, L100.0100 #### [facility] [address] [place], [address] GAP 7 Normal 5-15 [facility] Comment on above: Performed By: #### L 500.4050, L100.0100 #### [facility] [address] [place], [address] GFR/1.73 sq M.predicted among non-blacks MDRD (S/P/Bld) [Vol rate/Area] 77 mL/min/{1.73_m2} Normal >60 [facility] Comment on above: Result Comment: Non- GFR Calc Performed By: #### L 500.4050, L100.0100 #### [facility] [address] [place], [address] Globulin (S) [Mass/Vol] 3.4 g/dL Normal 2.2-4.2 [facility] Comment on above: Performed By: #### L 500.4050, L100.0100 #### [facility] [address] [place], [address] Glucose [Mass/Vol] 103 mg/dL Normal 74-106 [facility] Comment on above: Result Comment: Fast ing Glucose result from 100 to 125 mg/dL suggests IMPAIRED HOMEOSTASIS per A.D.A. criteria. Performed By: #### L 500.4050, L100.0100 #### [facility] [address] [place], [address] Potassium [Moles/Vol] 3.9 mmol/L Normal 3.5-5.1 [facility] Comment on above: Performed By: #### L 500.4050, L100.0100 #### [facility] [address] [place], [address] Sodium [Moles/Vol] 141 mmol/L Normal 136-145 [facility] Comment on above: Performed By: #### L 500.4050, L100.0100 #### [facility] [address] [place], [address] T PROT 6.9 g/dL Normal 6.4-8.2 [facility] Comment on above: Performed By: #### L 500.4050, L100.0100 #### [facility] [address] [place], [address] Urea nitrogen [Mass/Vol] 14 mg/dL Normal 7-18 [facility] Comment on above: Performed By: #### L 500.4050, L100.0100 #### [facility] [address] [place], [address] Hemoglobin A1con 01-14-2024 HbA1c (Bld) [Mass fraction] 7.1 % High 3.8-5.6 [facility] Comment on above: Result Comment: Norm al < 5.7 % Prediabetic 5.7 - 6.4 % Diabetic >or= 6.5 % Please note range changes. Performed By: #### L 501.9985, L500.4100 #### [facility] [address] [place], [address] Lipid Profileon 01-14-2024 Cholesterol [Mass/Vol] 221 mg/dL High 200 [facility] Comment on above: Result Comment: <200 mg/dL Desirable 200-240 mg/dL Borderline >240 mg/dL High Risk Performed By: #### L 501.9985, L500.4100 #### [facility] [address] [place], [address] Cholesterol in HDL [Mass/Vol] 67 mg/dL Normal [facility] Comment on above: Result Comment: The drugs N-Acetylcysteine and Metamizole may falsely depress this assay. Reference Range HDL <40 mg/dL Low HDL Cholesterol HDL >or= 60 mg/dL High HDL Cholesterol Performed By: #### L 501.9985, L500.4100 #### [facility] [address] [place], [address] Cholesterol in LDL [Mass/Vol] 125 mg/dL Normal 0-130 [facility] Comment on above: Performed By: #### L 501.9985, L500.4100 #### [facility] [address] [place], [address] Cholesterol in VLDL [Mass/Vol] 29 mg/dL Normal 5-40 [facility] Comment on above: Performed By: #### L 501.9985, L500.4100 #### [facility] [address] [place], [address] Triglyceride [Mass/Vol] 143 mg/dL Normal [facility] Comment on above: Result Comment: The drugs N-Acetylcysteine and Metamizole may falsely depress this assay. Serum Triglycerides Reference Interval Normal <150 mg/dL Borderline high 150 - 199 mg/dL High 200 - 499 mg/dL Very High > or = 500 mg/dL Performed By: #### L 501.9985, L500.4100 #### [facility] [address] [place], [place], [id number] Absolute lymphocyte countOrd ered By: Pamela Lentz on 10-22-2023 Lymphocytes Auto (Unsp spec) [#/Vol] 2.69 10*3/uL 0.83-4.51 [facility] Automated lymphocyte count a s percentage of total leukocytesOrdered By: Pamela Lentz on 10-22-2023 Lymphocytes/100 WBC Auto (Unsp spec) 47.7 % 19-41 [facility] Basophil percentageOrdered B y: Pamela Lentz on 10-22-2023 Basophils/100 WBC (Bld) 1.2 % 0-1 [facility] Bilirubin [Mass/Vol] 0.80 mg/dL 0.20-1.00 [facility] Comment on above: For patients on eltr ombopag therapy, use of Dimension [place] TBIL is not recommended. Chloride [Moles/Vol] 109 mmol/L 98-107 [facility] Eosinophils/100 WBC (Bld) 2.7 % 0-5 [facility] Glucose [Mass/Vol] 149 mg/dL 74-106 [facility] Comment on above: Fasting Glucose resu lt greater than or equal to 126 mg/dL suggests DIABETES MELLITUS per A.D.A. criteria. Hemoglobin (Bld) [Mass/Vol] 12.7 g/dL 12.0-15.0 [facility] Monocytes/100 WBC (Bld) 8.3 % 0-10 [facility] Neutrophils (Bld) [#/Vol] 2.3 10*3/uL 2.0-7.7 [facility] Neutrophils/100 WBC (Bld) 39.9 % 47-70 [facility] Potassium [Moles/Vol] 4.0 mmol/L 3.5-5.1 [facility] Protein [Mass/Vol] 6.2 g/dL 6.4-8.2 [facility] Sodium [Moles/Vol] 140 mmol/L 136-145 [facility] WBC (Bld) [#/Vol] 5.6 10*3/uL 4.4-11.0 [facility] CBC W/Diff, Automatedon 09-28-2023 Absolute Lymph 2.69 X10 3/uL Normal 0.83-4.51 [facility] Comment on above: Performed By: #### L 501.9985, L100.0100, L500.4050 #### [facility] [address] [place], [address] Absolute Neut 2.3 X10 3/uL Normal 2.0-7.7 [facility] Comment on above: Performed By: #### L 501.9985, L100.0100, L500.4050 #### [facility] [address] [place], [address] Basophils/100 WBC (Bld) 1.2 % High 0-1 [facility] Comment on above: Performed By: #### L 501.9985, L100.0100, L500.4050 #### [facility] [address] [place], [address] Eosinophils/100 WBC (Bld) 2.7 % Normal 0-5 [facility] Comment on above: Performed By: #### L 501.9985, L100.0100, L500.4050 #### [facility] [address] [place], [address] Erythrocyte distribution width (RBC) [Ratio] 12.9 % Normal 11.6-14.6 [facility] Comment on above: Performed By: #### L 501.9985, L100.0100, L500.4050 #### [facility] [address] [place], [address] Hematocrit (Bld) [Volume fraction] 40.1 % Normal 37-47 [facility] Comment on above: Performed By: #### L 501.9985, L100.0100, L500.4050 #### [facility] [address] [place], [address] Hemoglobin (Bld) [Mass/Vol] 12.7 g/dL Normal 12.0-15.0 [facility] Comment on above: Performed By: #### L 501.9985, L100.0100, L500.4050 #### [facility] [address] [place], [address] IG% 0.200 Normal 0.0-0.9 [facility] Comment on above: Result Comment: IG% - Immature Granulocytes (promyelocytes, myelocytes and metamyelocytes) > 1% indicates that a LEFT SHIFT is Present. Performed By: #### L 501.9985, L100.0100, L500.4050 #### [facility] [address] [place], [address] Lymphocytes/100 WBC (Bld) 47.7 % High 19-41 [facility] Comment on above: Performed By: #### L 501.9985, L100.0100, L500.4050 #### [facility] [address] [place], [address] MCH (RBC) [Entitic mass] 28.8 pg Normal 27.0-32.0 [facility] Comment on above: Performed By: #### L 501.9985, L100.0100, L500.4050 #### [facility] [address] [place], [address] MCHC (RBC) [Mass/Vol] 31.7 g/dL Low 32-36 [facility] Comment on above: Performed By: #### L 501.9985, L100.0100, L500.4050 #### [facility] [address] [place], [address] MCV (RBC) [Entitic vol] 90.9 fL Normal 81-99 [facility] Comment on above: Performed By: #### L 501.9985, L100.0100, L500.4050 #### [facility] [address] [place], [address] Monocytes/100 WBC (Bld) 8.3 % Normal 0-10 [facility] Comment on above: Performed By: #### L 501.9985, L100.0100, L500.4050 #### [facility] [address] [place], [address] Neutrophils/100 WBC (Bld) 39.9 % Low 47-70 [facility] Comment on above: Performed By: #### L 501.9985, L100.0100, L500.4050 #### [facility] [address] [place], [address] Nucleated RBC (Bld) [#/Vol] 0 10*3/uL Normal 0-5 [facility] Comment on above: Performed By: #### L 501.9985, L100.0100, L500.4050 #### [facility] [address] [place], [address] Platelet mean volume (Bld) [Entitic vol] 11.9 fL Normal 6.2-12.0 [facility] Comment on above: Performed By: #### L 501.9985, L100.0100, L500.4050 #### [facility] [address] [place], [address] Platelets (Bld) [#/Vol] 248 10*3/uL Normal 150-450 [facility] Comment on above: Performed By: #### L 501.9985, L100.0100, L500.4050 #### [facility] [address] [place], [address] RBC (Bld) [#/Vol] 4.41 10*6/uL Normal 4.2-5.4 [facility] Comment on above: Performed By: #### L 501.9985, L100.0100, L500.4050 #### [facility] [address] [place], [address] RDW SD 42.8 fl Normal 35.1-43.9 [facility] Comment on above: Performed By: #### L 501.9985, L100.0100, L500.4050 #### [facility] [address] [place], [address] WBC (Bld) [#/Vol] 5.6 10*3/uL Normal 4.4-11.0 [facility] Comment on above: Performed By: #### L 501.9985, L100.0100, L500.4050 #### [facility] [address] [place], [address] Comprehensive Metabolic Prof ilon 10-22-2023 Albumin [Mass/Vol] 3.2 g/dL Normal 3.2-5.0 [facility] Comment on above: Order Comment: DR.VE REGALADO ORDERED CBCD,CMP ORDERED A1C Performed By: #### L 501.9985, L100.0100, L500.4050 #### [facility] [address] [place], [address] Albumin/Globulin [Mass ratio] 1.1 {ratio} Normal 0.9-2.4 [facility] Comment on above: Order Comment: DR.VE REGALADO ORDERED CBCD,CMP ORDERED A1C Performed By: #### L 501.9985, L100.0100, L500.4050 #### [facility] [address] [place], [address] ALK P 82 U/L Normal 45-117 [facility] Comment on above: Order Comment: DR.VE REGALADO ORDERED CBCD,CMP ORDERED A1C Performed By: #### L 501.9985, L100.0100, L500.4050 #### [facility] [address] [place], [address] ALT [Catalytic activity/Vol] 15 U/L Normal 13-56 [facility] Comment on above: Order Comment: DR.VE REGALADO ORDERED CBCD,CMP ORDERED A1C Performed By: #### L 501.9985, L100.0100, L500.4050 #### [facility] [address] [place], [address] AST [Catalytic activity/Vol] 18 U/L Normal 15-37 [facility] Comment on above: Order Comment: DR.VE REGALADO ORDERED CBCD,CMP ORDERED A1C Performed By: #### L 501.9985, L100.0100, L500.4050 #### [facility] [address] [place], [address] Bilirubin [Mass/Vol] 0.80 mg/dL Normal 0.20-1.00 [facility] Comment on above: Order Comment: DR.VE REGALADO ORDERED CBCD,CMP ORDERED A1C Result Comment: For patients on eltrombopag therapy, use of Dimension [place] TBIL is not recommended. Performed By: #### L 501.9985, L100.0100, L500.4050 #### [facility] [address] [place], [address] BUN/CRE 14.1 RATIO Normal 10-20 [facility] Comment on above: Order Comment: DR.VE REGALADO ORDERED CBCD,CMP ORDERED A1C Performed By: #### L 501.9985, L100.0100, L500.4050 #### [facility] [address] [place], [address] CA,Total 8.6 mg/dL Normal 8.5-10.1 [facility] Comment on above: Order Comment: DR.VE REGALADO ORDERED CBCD,CMP ORDERED A1C Performed By: #### L 501.9985, L100.0100, L500.4050 #### [facility] [address] [place], [address] Chloride [Moles/Vol] 109 mmol/L High 98-107 [facility] Comment on above: Order Comment: DR.VE REGALADO ORDERED CBCD,CMP ORDERED A1C Performed By: #### L 501.9985, L100.0100, L500.4050 #### [facility] [address] [place], [address] CO2 [Moles/Vol] 25.0 mmol/L Normal 21.0-32.0 [facility] Comment on above: Order Comment: DR.VE REGALADO ORDERED CBCD,CMP ORDERED A1C Performed By: #### L 501.9985, L100.0100, [id number] #### [facility] [address] [place], [address] Creatinine [Mass/Vol] 0.78 mg/dL Normal 0.55-1.02 [facility] Comment on above: Order Comment: DR.VE REGALADO ORDERED CBCD,CMP ORDERED A1C Result Comment: The validity of the calculated GFR GFRAA in patients over 70 years has not been determined. Clinical correlation is essential. Performed By: #### L 501.9985, L100.0100, [id number] #### [facility] [address] [place], [address] EST GFR - AA 97 mL/min Normal >60 [facility] Comment on above: Order Comment: DR.VE REGALADO ORDERED CBCD,CMP ORDERED A1C Result Comment: Afri can Azerbaijani GFR Calc Performed By: #### L 501.9985, L100.0100, [id number] #### [facility] [address] [place], [address] GAP 6 Normal 5-15 [facility] Comment on above: Order Comment: DR.VE REGALADO ORDERED CBCD,CMP ORDERED A1C Performed By: #### L 501.9985, L100.0100, [id number] #### [facility] [address] [place], [address] GFR/1.73 sq M.predicted among non-blacks MDRD (S/P/Bld) [Vol rate/Area] 81 mL/min/{1.73_m2} Normal >60 [facility] Comment on above: Order Comment: DR.VE REGALADO ORDERED CBCD,CMP ORDERED A1C Result Comment: Non- GFR Calc Performed By: #### L 501.9985, L100.0100, [id number] #### [facility] [address] [place], [address] Globulin (S) [Mass/Vol] 3.0 g/dL Normal 2.2-4.2 [facility] Comment on above: Order Comment: DR.VE REGALADO ORDERED CBCD,CMP ORDERED A1C Performed By: #### L 501.9985, L100.0100, [id number] #### [facility] [address] [place], [address] Glucose [Mass/Vol] 149 mg/dL High 74-106 [facility] Comment on above: Order Comment: DR.VE REGALADO ORDERED CBCD,CMP ORDERED A1C Result Comment: Fast ing Glucose result greater than or equal to 126 mg/dL suggests DIABETES MELLITUS per A.D.A. criteria. Performed By: #### L 501.9985, L100.0100, [id number] #### [facility] [address] [place], [address] Potassium [Moles/Vol] 4.0 mmol/L Normal 3.5-5.1 [facility] Comment on above: Order Comment: DR.VE REGALADO ORDERED CBCD,CMP ORDERED A1C Performed By: #### L 501.9985, L100.0100, [id number] #### [facility] [address] [place], [address] Sodium [Moles/Vol] 140 mmol/L Normal 136-145 [facility] Comment on above: Order Comment: DR.VE REGALADO ORDERED CBCD,CMP ORDERED A1C Performed By: #### L 501.9985, L100.0100, [id number] #### [facility] [address] [place], [address] T PROT 6.2 g/dL Low 6.4-8.2 [facility] Comment on above: Order Comment: DR.VE REGALADO ORDERED CBCD,CMP ORDERED A1C Performed By: #### L 501.9985, L100.0100, [id number] #### [facility] [address] [place], [address] Urea nitrogen [Mass/Vol] 11 mg/dL Normal 7-18 [facility] Comment on above: Order Comment: DR.VE REGALADO ORDERED CBCD,CMP ORDERED A1C Performed By: #### L 501.9985, L100.0100, [id number] #### [facility] [address] [place], [place], [id number] Determination of erythrocyte mean corpuscular volume (MCV)Ordered By: Pamela Lentz on 10-22-2023 MCV (RBC) [Entitic vol] 90.9 fL 81-99 [facility] Erythrocyte distribution wid th ratioOrdered By: [facility] on 10-22-2023 Erythrocyte distribution width (RBC) [Ratio] 12.9 % 11.6-14.6 [facility] Erythrocyte distribution wid th standard deviationOrdered By: [facility] on 10-22-2023 Erythrocyte distribution width (RBC) [Entitic vol] 42.8 fL 35.1-43.9 [facility] Hematocrit Auto (Bld) [Volum e fraction]Ordered By: [facility] on 10-22-2023 Hematocrit (Bld) [Volume fraction] 40.1 % 37-47 [facility] Hemoglobin A1con 10-22-2023 HbA1c (Bld) [Mass fraction] 7.0 % High 3.8-5.6 [facility] Comment on above: Result Comment: Norm al < 5.7 % Prediabetic 5.7 - 6.4 % Diabetic >or= 6.5 % Please note range changes. Performed By: #### L 501.9985, L100.0100, [id number] #### [facility] [address] [place], [place], [id number] Immature granulocytes/100 WB C Auto (Bld)Ordered By: Pamela Lentz on 10-22-2023 Immature granulocytes/100 WBC (Bld) 0.200 % 0.0-0.9 [facility] Comment on above: IG% - Immature Granu locytes (promyelocytes, myelocytes and metamyelocytes) > 1% indicates that a LEFT SHIFT is Present. Laboratory - Chemistry and C hemistry - challengeOrdered By: Pamela Lentz on 10-22-2023 Albumin/Globulin [Mass ratio] 1.1 {ratio} 0.9-2.4 [facility] ALP [Catalytic activity/Vol] 82 U/L 45-117 [facility] ALT [Catalytic activity/Vol] 15 U/L 13-56 [facility] CO2 [Moles/Vol] 25.0 mmol/L 21.0-32.0 [facility] Globulin (S) [Mass/Vol] 3.0 g/dL 2.2-4.2 [facility] Urea nitrogen/Creatinine [Mass ratio] 14.1 mg/mg 10-20 [facility] - Hematology and Cell countsOrdered By: Pamela Lentz on 10-22-2023 MCH (RBC) [Entitic mass] 28.8 pg 27.0-32.0 [facility] MCHC (RBC) [Mass/Vol] 31.7 g/dL 32-36 [facility] Nucleated RBC/100 WBC (Bld) [Ratio] 0 % 0-5 [facility] Platelet mean volume (Bld) [Entitic vol] 11.9 fL 6.2-12.0 [facility] Platelets (Bld) [#/Vol] 248 10*3/uL 150-450 [facility] No Panel InformationOrdered By: Pamela Lentz on 10-22-2023 Estimated GFR (MDRD) Amer 97 mL/min >60 [facility] Comment on above: GFR Calc Estimated GFR (MDRD) Non-Af Amer 81 mL/min >60 [facility] Comment on above: Non- GFR Calc RBC Auto (Bld) [#/Vol]Ordere d By: Pamela Lentz on 10-22-2023 RBC (Bld) [#/Vol] 4.41 10*6/uL 4.2-5.4 [facility] Serum or plasma calcium robel urement (mass/volume)Ordered By: Pamela Lentz on 10-22-2023 Calcium [Mass/Vol] 8.6 mg/dL 8.5-10.1 [facility] Serum or plasma creatinine m easurement (mass/volume)Ordered By: Pamela Lentz on 10-22-2023 Creatinine [Mass/Vol] 0.78 mg/dL 0.55-1.02 [facility] Comment on above: The validity of the calculated GFR & GFRAA in patients over 70 years has not been determined. Clinical correlation is essential. Serum or plasma urea nitroge n measurement (mass/volume)Ordered By: Pamela Lentz on 10-22-2023 Urea nitrogen [Mass/Vol] 11 mg/dL 7-18 [facility] Thin prep Papanicolaou smear with manual screeningOrdered By: Pamela Lentz on 10-22-2023 Thin prep Papanicolaou smear with manual screening 3.2 g/dL 3.2-5.0 [facility] Thin prep Papanicolaou smear with manual screening 18 U/L 15-37 [facility] Thin prep Papanicolaou smear with manual screening 6 5-15 [facility] Whole blood hemoglobin A1c/t otal hemoglobin ratio (mass fraction)Ordered By: Pamela Lentz on 10-22-2023 HbA1c (Bld) [Mass fraction] 7.0 % 3.8-5.6 [facility] Comment on above: Normal < 5.7 % Predi abetic 5.7 - 6.4 % Diabetic >or= 6.5 % Please note range changes. Absolute lymphocyte countOrd ered By: April Brooks on 08-07-2023 Lymphocytes Auto (Unsp spec) [#/Vol] 2.45 10*3/uL 0.83-4.51 [facility] Basophil percentageOrdered B y: April Brooks on 08-07-2023 Basophils/100 WBC (Bld) 1.2 % 0-1 [facility] Bilirubin [Mass/Vol] 1.50 mg/dL 0.20-1.00 [facility] Comment on above: For patients on eltr ombopag therapy, use of Dimension [place] TBIL is not recommended. Chloride [Moles/Vol] 111 mmol/L 98-107 [facility] Eosinophils/100 WBC (Bld) 2.3 % 0-5 [facility] Glucose [Mass/Vol] 134 mg/dL 74-106 [facility] Comment on above: Fasting Glucose resu lt greater than or equal to 126 mg/dL suggests DIABETES MELLITUS per A.D.A. criteria. Neutrophils (Bld) [#/Vol] 2.9 10*3/uL 2.0-7.7 [facility] Neutrophils/100 WBC (Bld) 47.8 % 47-70 [facility] Potassium [Moles/Vol] 4.0 mmol/L 3.5-5.1 [facility] Protein [Mass/Vol] 6.5 g/dL 6.4-8.2 [facility] Sodium [Moles/Vol] 143 mmol/L 136-145 [facility] WBC (Bld) [#/Vol] 6.0 10*3/uL 4.4-11.0 [facility] Blood erythrocytes count (nu mber/volume)Ordered By: April Brooks on 08-07-2023 RBC (Bld) [#/Vol] 4.57 10*6/uL 4.2-5.4 [facility] Blood hemoglobin measurement (mass/volume)Ordered By: April Brooks on 08-07-2023 Hemoglobin (Bld) [Mass/Vol] 13.0 g/dL 12.0-15.0 [facility] Blood lymphocytes/100 leukoc ytesOrdered By: April Brooks on 08-07-2023 Lymphocytes/100 WBC (Bld) 40.8 % 19-41 [facility] Blood monocytes/100 leukocyt esOrdered By: April Brooks on 08-07-2023 Monocytes/100 WBC (Bld) 7.7 % 0-10 [facility] Blood platelet mean volumeOr dered By: April Brooks on 08-07-2023 Platelet mean volume (Bld) [Entitic vol] 11.5 fL 6.2-12.0 [facility] Determination of erythrocyte mean corpuscular volume (MCV)Ordered By: April Brooks on 08-07-2023 MCV (RBC) [Entitic vol] 89.9 fL 81-99 [facility] Hematocrit Auto (Bld) [Volum e fraction]Ordered By: April Brooks on 08-07-2023 Hematocrit (Bld) [Volume fraction] 41.1 % 37-47 [facility] Laboratory - Chemistry and C hemistry - challengeOrdered By: April Brooks on 08-07-2023 ALP [Catalytic activity/Vol] 88 U/L 45-117 [facility] ALT [Catalytic activity/Vol] 18 U/L 13-56 [facility] CO2 [Moles/Vol] 24.0 mmol/L 21.0-32.0 [facility] Globulin (S) [Mass/Vol] 3.4 g/dL 2.2-4.2 [facility] Urea nitrogen/Creatinine [Mass ratio] 18.7 mg/mg 10-20 [facility] - Hematology and Cell countsOrdered By: April Brooks on 08-07-2023 Erythrocyte distribution width (RBC) [Entitic vol] 44.8 fL 35.1-43.9 [facility] Erythrocyte distribution width (RBC) [Ratio] 13.7 % 11.6-14.6 [facility] Immature granulocytes/100 WBC (Bld) 0.200 % 0.0-0.9 [facility] Comment on above: IG% - Immature Granu locytes (promyelocytes, myelocytes and metamyelocytes) > 1% indicates that a LEFT SHIFT is Present. MCH (RBC) [Entitic mass] 28.4 pg 27.0-32.0 [facility] Nucleated RBC/100 WBC (Bld) [Ratio] 0 % 0-5 [facility] MCHC Auto (RBC) [Mass/Vol]Or dered By: April Brooks on 08-07-2023 MCHC (RBC) [Mass/Vol] 31.6 g/dL 32-36 [facility] No Panel InformationOrdered By: April Brooks on 08-07-2023 Estimated GFR (MDRD) Amer 102 mL/min >60 [facility] Comment on above: GFR Calc Estimated GFR (MDRD) Non-Af Amer 84 mL/min >60 [facility] Comment on above: Non- GFR Calc Platelets bldOrdered By: Pawel Brooks on 08-07-2023 Platelets (Bld) [#/Vol] 234 10*3/uL 150-450 [facility] Serum or plasma albumin robel urement (mass/volume)Ordered By: April Brooks on 08-07-2023 Albumin [Mass/Vol] 3.1 g/dL 3.2-5.0 [facility] Serum or plasma albumin/glob ulin mass ratioOrdered By: April Brooks on 08-07-2023 Albumin/Globulin [Mass ratio] 0.9 {ratio} 0.9-2.4 [facility] Serum or plasma calcium robel urement (mass/volume)Ordered By: April Brooks on 08-07-2023 Calcium [Mass/Vol] 9.1 mg/dL 8.5-10.1 [facility] Serum or plasma creatinine m easurement (mass/volume)Ordered By: April Brooks on 08-07-2023 Creatinine [Mass/Vol] 0.75 mg/dL 0.55-1.02 [facility] Comment on above: The validity of the calculated GFR & GFRAA in patients over 70 years has not been determined. Clinical correlation is essential. Serum or plasma urea nitroge n measurement (mass/volume)Ordered By: April Brooks on 08-07-2023 Urea nitrogen [Mass/Vol] 14 mg/dL 7-18 [facility] Thin prep Papanicolaou smear with manual screeningOrdered By: April Brooks on 08-07-2023 Thin prep Papanicolaou smear with manual screening 18 U/L 15-37 [facility] Thin prep Papanicolaou smear with manual screening 8 5-15 [facility] Whole blood hemoglobin A1c/t otal hemoglobin ratio (mass fraction)Ordered By: April Brooks on 08-07-2023 HbA1c (Bld) [Mass fraction] 7.1 % 3.8-5.6 [facility] Comment on above: Normal < 5.7 % Predi abetic 5.7 - 6.4 % Diabetic >or= 6.5 % Please note range changes. VIT.B1 THIAMINE-BLDon 2022 VIT.B1 THIAMINE-BLD 153.1 [facility] Comment on above: Result Comment: Refe rence range: 66.5 to 200.0 Unit: nmol/L (NOTE) This test was developed and its performance characteristics determined by [employer]. It has not been cleared or approved by the Food and Drug Administration. PERFORMED AT [facility] Performed By: #### L VB1 #### Testing performed at [facility] VITAMIN Aon 07-20-2023 VITAMIN A 44.4 Normal [facility] Comment on above: Result Comment: Refe rence range: 20.1 to 62.0 Unit: ug/dL (NOTE) Reference intervals for vitamin A determined from [facility] internal studies. Individuals with vitamin A less than 20 ug/dL are considered vitamin A deficient and those with serum concentrations less than 10 ug/dL are considered severely deficient. This test was developed and its performance characteristics determined by [facility]. It has not been cleared or approved by the Food and Drug Administration. PERFORMED AT [facility] Performed By: #### L RADHA LVITA #### Testing performed at [facility] #### ACBC, FE2, B12F #### Testing performed at [address] [address] VITAMIN Javid 07-20-2023 VITAMIN E ALPHA 12.[address] [facility] Comment on above: Result Comment: Refe rence range: 7.0 to 25.1 Unit: mg/L (NOTE) This test was developed and its performance characteristics determined by [facility]. It has not been cleared or approved by the Food and Drug Administration. Performed By: #### L RADHA LVITA #### Testing performed at [facility] #### ACBC, FE2, B12F #### [place] [address] VITAMIN E GAMMA 2.[address] [facility] Comment on above: Result Comment: Refe rence range: 0.5 to 5.5 Unit: mg/L (NOTE) This test was developed and its performance characteristics determined by [facility]. It has not been cleared or approved by the Food and Drug Administration. Reference intervals for alpha and gamma-tocopherol determined from National Health and Nutrition Examination Survey, 0220-3587. Individuals with alpha-tocopherol levels less than 5.0 mg/L are considered vitamin E deficient. PERFORMED AT [facility] Performed By: #### L RADHA LVITA #### Testing performed at [facility] #### ACBC, FE2, B12F #### Testing performed at [place] [id number] 25 0H VITAMIN D LEVELon 06-29 25 0H VITAMIN D LEVEL 36.0 NG/ML Normal [facility] Comment on above: Result Comment: DEFICIENT <20 NG/ML INSUFFICIENT 20-<30 NG/ML SUFFICIENT 30-100 NG/ML POTENTIAL TOXICITY >100 NG/ML Testing performed at [place] [address] Performed By: #### V ITD #### Testing performed at [place] [id number] B12 & FOLATEon 07-17-2023 Cobalamin (Vitamin B12) [Mass/Vol] 685 pg/mL 239 - 931 PG/ML [facility] Folate [Mass/Vol] 11.4 ng/mL [facility] Comment on above: Testing performed at [address] B12 FOLATEon 07-17-2023 Cobalamin (Vitamin B12) [Mass/Vol] 685 pg/mL Normal 239-931 [facility] Comment on above: Performed By: #### L RADHA, LVITA #### Testing performed at [facility] #### ACBC, FE2, B12F #### [place] [address] FOLATE 11.4 NG/ML Normal 2.56-20.0 [facility] Comment on above: Result Comment: Test ing performed at [place] [address] Performed By: #### L RADHA, LVITA #### Testing performed at [facility] #### ACBC, FE2, B12F #### [place] [address] CBCon 07-17-2023 ABSOLUTE BAS 0.1 10*3/uL Normal 0.0-0.2 [facility] Comment on above: Result Comment: Test ing performed at [place] [address] Performed By: #### L RADHA, LVITA #### Testing performed at [facility] #### ACBC, FE2, B12F #### [place] [address] ABSOLUTE EOS 0.1 10*3/uL Normal 0.0-0.7 [facility] [place] Comment on above: Performed By: #### L RADHA, LVITA #### Testing performed at [facility] #### ACBC, FE2, B12F #### [place] [address] ABSOLUTE NEUTROPHIL COUNT 4.1 10*3/uL Normal 1.4-6.5 [facility] Comment on above: Performed By: #### L RADHA, LVITA #### Testing performed at [facility] #### ACBC, FE2, B12F #### Testing performed at [address] [address] Basophils/100 WBC (Bld) 1.1 % Normal 0.0-2.0 [facility] Comment on above: Performed By: #### L RADHA, LVITA #### Testing performed at [facility] #### ACBC, FE2, B12F #### Testing performed at [address] [address] DTYPE AUTO DIFF Normal [facility] Comment on above: Performed By: #### L RADHA, LVITA #### Testing performed at [facility] #### ACBC, FE2, B12F #### Testing performed at [address] [address] Eosinophils/100 WBC (Bld) 1.9 % Normal 0.0-11.0 [facility] Comment on above: Performed By: #### L RADHA, LVITA #### Testing performed at [facility] #### ACBC, FE2, B12F #### Testing performed at [address] [address] Lymphocytes (Bld) [#/Vol] 1.3 10*3/uL Normal 1.2-3.4 [facility] Comment on above: Performed By: #### L RADHA, LVITA #### Testing performed at [facility] #### ACBC, FE2, B12F #### Testing performed at [address] [address] Lymphocytes/100 WBC (Bld) 21.0 % Normal 20.0-55.0 [facility] Comment on above: Performed By: #### L RADHA, LVITA #### Testing performed at [facility] #### ACBC, FE2, B12F #### Testing performed at [place] [id number] Monocytes (Bld) [#/Vol] 0.5 10*3/uL Normal 0.0-0.7 [facility] Comment on above: Performed By: #### L RADHA, LVITA #### Testing performed at [facility] #### ACBC, FE2, B12F #### [place] [address] Monocytes/100 WBC (Bld) 7.6 % Normal 0.0-10.0 [facility] Comment on above: Performed By: #### L RADHA, LVITA #### Testing performed at [facility] #### ACBC, FE2, B12F #### [place] [address] Neutrophils/100 WBC (Bld) 68.4 % Normal 37.0-75.0 [facility] Comment on above: Performed By: #### L RADHA, LVITA #### Testing performed at [facility] #### ACBC, FE2, B12F #### [place] [address] Erythrocyte distribution width (RBC) [Ratio] 14.5 % Normal 11.5-14.5 [facility] Comment on above: Performed By: #### L RADHA, LVITA #### Testing performed at [facility] #### ACBC, FE2, B12F #### Testing performed at [place] [id number] Hematocrit (Bld) [Volume fraction] 41.1 % Normal 36.0-48.0 [facility] Comment on above: Performed By: #### L RADHA, LVITA #### Testing performed at [facility] #### ACBC, FE2, B12F #### Testing performed at [place] [id number] Hemoglobin (Bld) [Mass/Vol] 13.4 g/dL Normal 12.0-16.0 [facility] Comment on above: Performed By: #### L RADHA, LVITA #### Testing performed at [facility] #### ACBC, FE2, B12F #### Testing performed at [place] [id number] MCH (RBC) [Entitic mass] 29.2 pg Normal 26.0-35.0 [facility] Comment on above: Performed By: #### L RADHA, LVITA #### Testing performed at [facility] #### ACBC, FE2, B12F #### [place] [address] MCHC (RBC) [Mass/Vol] 32.7 g/dL Normal 27.0-37.0 [facility] Comment on above: Performed By: #### L RADHA, LVITA #### Testing performed at [facility] #### ACBC, FE2, B12F #### [place] [address] MCV (RBC) [Entitic vol] 89.2 fL Normal 80.0-100.0 [facility] Comment on above: Performed By: #### L RADHA, LVITA #### Testing performed at [facility] #### ACBC, FE2, B12F #### [place] [address] Platelet mean volume (Bld) [Entitic vol] 10.1 fL Normal 7.4-11.0 [facility] Comment on above: Performed By: #### L RADHA, LVITA #### Testing performed at [facility] #### ACBC, FE2, B12F #### [place] [address] Platelets (Bld) [#/Vol] 234 10*3/uL Normal 130-400 [facility] Comment on above: Performed By: #### L RADHA, LVITA #### Testing performed at [facility] #### ACBC, FE2, B12F #### Testing performed at [facility] [address] [place] [address] RBC (Bld) [#/Vol] 4.61 10*6/uL Normal 4.0-5.4 [facility] Comment on above: Performed By: #### L RADHA, LVITA #### Testing performed at [facility] #### ACBC, FE2, B12F #### Testing performed at [facility] [address] [place] [address] WBC (Bld) [#/Vol] 6.0 10*3/uL Normal 3.6-11.0 [facility] Comment on above: Performed By: #### L RADHA, LVITA #### Testing performed at [facility] #### ACBC, FE2, B12F #### Testing performed at [address] [address] CBC, EDIF, PLATELETon 2022 ABSOLUTE BASOPHIL COUNT 0.1 10*3/uL 0.0 - 0.2 10*3/uL [facility] Comment on above: Testing performed at [place], [place] [address] Basophils/100 WBC (Bld) 1.1 % 0.0 - 2.0 % [facility] Differential cell count method Nom (Bld) AUTO DIFF % [facility] Eosinophils (Bld) [#/Vol] 0.1 10*3/uL 0.0 - 0.7 10*3/uL [facility] Eosinophils/100 WBC (Bld) 1.9 % 0.0 - 11.0 % [facility] Erythrocyte distribution width (RBC) [Ratio] 14.5 % 11.5 - 14.5 % [facility] Hematocrit (Bld) [Volume fraction] 41.1 % 36.0 - 48.0 % [facility] Hemoglobin (Bld) [Mass/Vol] 13.4 g/dL [facility] Lymphocytes (Bld) [#/Vol] 1.3 10*3/uL 1.2 - 3.4 10*3/uL [facility] Lymphocytes/100 WBC (Bld) 21.0 % 20.0 - 55.0 % [facility] MCH (RBC) [Entitic mass] 29.2 pg 26.0 - 35.0 PG [facility] MCHC (RBC) [Mass/Vol] 32.7 g/dL [facility] MCV (RBC) [Entitic vol] 89.2 fL A [facility] Monocytes (Bld) [#/Vol] 0.5 10*3/uL 0.0 - 0.7 10*3/uL [facility] Monocytes/100 WBC (Bld) 7.6 % 0.0 - 10.0 % [facility] Neutrophils (Bld) [#/Vol] 4.1 10*3/uL 1.4 - 6.5 10*3/uL [facility] Neutrophils/100 WBC (Bld) 68.4 % 37.0 - 75.0 % [facility] Platelet mean volume (Bld) [Entitic vol] 10.1 fL [facility] Platelets (Bld) [#/Vol] 234 10*3/uL 130 - 400 10*3/uL [facility] RBC (Bld) [#/Vol] 4.61 10*6/uL 4.0 - 5.4 10*6/uL [facility] WBC (Bld) [#/Vol] 6.0 10*3/uL 3.6 - 11.0 10*3/uL [facility] IRONon 07-17-2023 Iron [Mass/Vol] 56 ug/dL Normal 37-170 [facility] Comment on above: Result Comment: Test ing performed at [place] [id number] Performed By: #### L ARDHA, LVITA #### Testing performed at [facility] #### ACBC, FE2, B12F #### [place] [address] Iron [Mass/Vol] 56 ug/dL [facility] Comment on above: Testing performed at [address] VITAMIN D (25-HYDROXY,TOTAL) on 07-17-2023 25-hydroxyvitamin D [Mass/Vol] 36.0 NG/ML [facility] Comment on above: DEFICIENT <20 NG/ML INSUFFICIENT 20-<30 NG/ML SUFFICIENT 30-100 NG/ML POTENTIAL TOXICITY >100 NG/ML Testing performed at [place], [place] [address] [facility] Whole blood hemoglobin A1c/t otal hemoglobin ratio (mass fraction)Ordered By: April Brooks on 07-06-2023 HbA1c (Bld) [Mass fraction] 6.6 % 3.8-5.6 [facility] Comment on above: Normal < 5.7 % Predi abetic 5.7 - 6.4 % Diabetic >or= 6.5 % Please note range changes. Absolute lymphocyte countOrd ered By: Pamela Lentz on 05-09-2023 Lymphocytes Auto (Unsp spec) [#/Vol] 2.55 10*3/uL 0.83-4.51 [facility] Basophil percentageOrdered B y: Pamela Lentz on 05-09-2023 Basophils/100 WBC (Bld) 1.1 % 0-1 [facility] Bilirubin [Mass/Vol] 0.70 mg/dL 0.20-1.00 [facility] Comment on above: For patients on eltr ombopag therapy, use of Dimension [place] TBIL is not recommended. Chloride [Moles/Vol] 109 mmol/L 98-107 [facility] Eosinophils/100 WBC (Bld) 2.8 % 0-5 [facility] Glucose [Mass/Vol] 131 mg/dL 74-106 [facility] Comment on above: Fasting Glucose resu lt greater than or equal to 126 mg/dL suggests DIABETES MELLITUS per A.D.A. criteria. Neutrophils (Bld) [#/Vol] 2.3 10*3/uL 2.0-7.7 [facility] Neutrophils/100 WBC (Bld) 40.2 % 47-70 [facility] Potassium [Moles/Vol] 3.9 mmol/L 3.5-5.1 [facility] Protein [Mass/Vol] 6.6 g/dL 6.4-8.2 [facility] Sodium [Moles/Vol] 139 mmol/L 136-145 [facility] WBC (Bld) [#/Vol] 5.6 10*3/uL 4.4-11.0 [facility] Blood erythrocytes count (nu mber/volume)Ordered By: Pamela Lentz on 05-09-2023 RBC (Bld) [#/Vol] 4.17 10*6/uL 4.2-5.4 [facility] Blood hemoglobin measurement (mass/volume)Ordered By: Pamela Lentz on 05-09-2023 Hemoglobin (Bld) [Mass/Vol] 12.1 g/dL 12.0-15.0 [facility] Blood lymphocytes/100 leukoc ytesOrdered By: Pamela Lentz on 05-09-2023 Lymphocytes/100 WBC (Bld) 45.4 % 19-41 [facility] Blood monocytes/100 leukocyt esOrdered By: [facility] on 05-09-2023 Monocytes/100 WBC (Bld) 10.3 % 0-10 [facility] Blood platelet mean volumeOr dered By: Pamelarory Lentz on 05-09-2023 Platelet mean volume (Bld) [Entitic vol] 12.6 fL 6.2-12.0 [facility] Determination of erythrocyte mean corpuscular volume (MCV)Ordered By: Pamela Lentz on 05-09-2023 MCV (RBC) [Entitic vol] 93.5 fL 81-99 [facility] Hematocrit Auto (Bld) [Volum e fraction]Ordered By: Pamelarory Lentz on 05-09-2023 Hematocrit (Bld) [Volume fraction] 39.0 % 37-47 [facility] Laboratory - Chemistry and C hemistry - challengeOrdered By: Pamelarory Lentz on 05-09-2023 ALP [Catalytic activity/Vol] 84 U/L 45-117 [facility] ALT [Catalytic activity/Vol] 22 U/L 13-56 [facility] CO2 [Moles/Vol] 24.0 mmol/L 21.0-32.0 [facility] Globulin (S) [Mass/Vol] 3.1 g/dL 2.2-4.2 [facility] Urea nitrogen/Creatinine [Mass ratio] 15.5 mg/mg 10-20 [facility] Laboratory - Hematology and Cell countsOrdered By: Pamelarory Lentz on 05-09-2023 Erythrocyte distribution width (RBC) [Entitic vol] 46.3 fL 35.1-43.9 [facility] Erythrocyte distribution width (RBC) [Ratio] 13.4 % 11.6-14.6 [facility] Immature granulocytes/100 WBC (Bld) 0.200 % 0.0-0.9 [facility] Comment on above: IG% - Immature Granu locytes (promyelocytes, myelocytes and metamyelocytes) > 1% indicates that a LEFT SHIFT is Present. MCH (RBC) [Entitic mass] 29.0 pg 27.0-32.0 [facility] Nucleated RBC/100 WBC (Bld) [Ratio] 0 % 0-5 [facility] MCHC Auto (RBC) [Mass/Vol]Or dered By: Pamela Lentz on 05-09-2023 MCHC (RBC) [Mass/Vol] 31.0 g/dL 32-36 [facility] No Panel InformationOrdered By: Pamela Lentz on 05-09-2023 Estimated GFR (MDRD) Amer 99 mL/min >60 [facility] Comment on above: GFR Calc Estimated GFR (MDRD) Non-Af Amer 82 mL/min >60 [facility] Comment on above: Non- GFR Calc Platelets bldOrdered By: Dhara Lentz on 05-09-2023 Platelets (Bld) [#/Vol] 220 10*3/uL 150-450 [facility] Serum or plasma albumin robel urement (mass/volume)Ordered By: Pamela Lentz on 05-09-2023 Albumin [Mass/Vol] 3.5 g/dL 3.2-5.0 [facility] Serum or plasma albumin/glob ulin mass ratioOrdered By: Pamela Lentz on 05-09-2023 Albumin/Globulin [Mass ratio] 1.1 {ratio} 0.9-2.4 [facility] Serum or plasma calcium robel urement (mass/volume)Ordered By: Pamela Lentz on 05-09-2023 Calcium [Mass/Vol] 8.3 mg/dL 8.5-10.1 [facility] Serum or plasma creatinine m easurement (mass/volume)Ordered By: Pamela Lentz on 05-09-2023 Creatinine [Mass/Vol] 0.77 mg/dL 0.55-1.02 [facility] Comment on above: The validity of the calculated GFR & GFRAA in patients over 70 years has not been determined. Clinical correlation is essential. Serum or plasma urea nitroge n measurement (mass/volume)Ordered By: Pamela Lentz on 05-09-2023 Urea nitrogen [Mass/Vol] 12 mg/dL 7-18 [facility] Thin prep Papanicolaou smear with manual screeningOrdered By: Pamela Lentz on 05-09-2023 Thin prep Papanicolaou smear with manual screening 18 U/L 15-37 [facility] Thin prep Papanicolaou smear with manual screening 6 - [facility] BASIC METABOLIC PANELon 03-30 Anion gap [Moles/Vol] 7 mmol/L MMOL/L [facility] Calcium [Mass/Vol] 7.8 mg/dL Low [facility] Chloride [Moles/Vol] 106 mmol/L [facility] [employer] [facility] Comment on above: Please note: Triglyc eride levels of 600mg/dL or higher may positively bias chloride results by approximately 2.1 mmol CO2 [Moles/Vol] 24 mmol/L [facility] Creatinine [Mass/Vol] 0.95 mg/dL [facility] GFR COMMENT Average GFR for 50-59 years old = 93. [facility] Comment on above: Chronic Kidney disea se, GFR = <60. Kidney failure, GFR = <15. The GFR estimate is not adjusted for extreme body surface area or acute process, nor has it been validated for women or ethnic groups other than and . GFR/1.73 sq M.predicted among blacks MDRD (S/P/Bld) [Vol rate/Area] 78 mL/min/{1.73_m2} ml/min/1.73sq .m [facility] GFR/1.73 sq M.predicted among non-blacks MDRD (S/P/Bld) [Vol rate/Area] 64 mL/min/{1.73_m2} ml/min/1.73sq .m [facility] Glucose post fast [Mass/Vol] 137 mg/dL High [facility] Comment on above: NORMAL <100 mg/dL PREDIABETES 101-126 mg/dL DIABETES 126 mg/dL or higher Interpretation and review of laboratory results Abnormal [facility] Potassium [Moles/Vol] 3.6 mmol/L [facility] Sodium [Moles/Vol] 137 mmol/L [facility] Urea nitrogen [Mass/Vol] 22 mg/dL High [facility] CBC, EDIF, PLATELETon 2022 ABSOLUTE BASOPHIL COUNT 0.1 10*3/uL 0.0 - 0.2 10*3/uL [facility] Basophils/100 WBC (Bld) 0.8 % 0.0 - 2.0 % [facility] Differential cell count method Nom (Bld) AUTO DIFF % [facility] Eosinophils (Bld) [#/Vol] 0.1 10*3/uL 0.0 - 0.7 10*3/uL [facility] Eosinophils/100 WBC (Bld) 0.8 % 0.0 - 11.0 % [facility] Erythrocyte distribution width (RBC) [Ratio] 14.5 % 11.5 - 14.5 % [facility] Hematocrit (Bld) [Volume fraction] 32.6 % Low 36.0 - 48.0 % [facility] Hemoglobin (Bld) [Mass/Vol] 10.8 g/dL Low [facility] Interpretation and review of laboratory results Abnormal [facility] Lymphocytes (Bld) [#/Vol] 2.7 10*3/uL 1.2 - 3.4 10*3/uL [facility] Lymphocytes/100 WBC (Bld) 36.8 % 20.0 - 55.0 % [facility] MCH (RBC) [Entitic mass] 29.6 pg 26.0 - 35.0 PG [facility] MCHC (RBC) [Mass/Vol] 33.0 g/dL [facility] MCV (RBC) [Entitic vol] 89.7 fL A [facility] Monocytes (Bld) [#/Vol] 0.6 10*3/uL 0.0 - 0.7 10*3/uL [facility] Monocytes/100 WBC (Bld) 8.6 % 0.0 - 10.0 % [facility] Neutrophils (Bld) [#/Vol] 4.0 10*3/uL 1.4 - 6.5 10*3/uL [facility] Neutrophils/100 WBC (Bld) 53.0 % 37.0 - 75.0 % [facility] Platelet mean volume (Bld) [Entitic vol] 10.0 fL [facility] Platelets (Bld) [#/Vol] 171 10*3/uL 130 - 400 10*3/uL [facility] RBC (Bld) [#/Vol] 3.64 10*6/uL Low 4.0 - 5.4 10*6/uL [facility] WBC (Bld) [#/Vol] 7.5 10*3/uL 3.6 - 11.0 10*3/uL [facility] GLUCOSE (POC DEVICE)on 04-13 GLUCOSE, POINT OF CARE [address] [facility] Interpretation and review of laboratory results Abnormal [facility] Operator [facility] GLUCOSE, POINT OF CARE [address] [facility] Interpretation and review of laboratory results Abnormal [facility] Operator [id number] [facility] SURGICAL PATHOLOGY REQUESTon 04-13-2023 Pathology report final diagnosis Narrative Surgical Final Report Patient Name: ANTHONY SAWYER Med. Rec. #: [id number] Physician: CARLY BLANCO Specimen(s) Received Stomach Other Related Clinical Data Not provided Clinical / Pre-Operative Diagnosis Morbid obesity with body mass index of 50 or higher, type 2 diabetes mellitus with hyperglycemia, unspecified whether long tern insulin use Post-Operative Diagnosis Not provided Surgical Procedure Gastrectomy longitudinal (sleeve) robotic Diagnosis: Stomach, Excision: -Benign stomach consistent with history Electronically Signed [facility]/04/12/2023 Aden Guerra DO Gross Description: The specimen is received in formalin, and labeled Anthony pardo and date of 1965. The specimen consists of a portion of stomach measuring 24 x 3.5 x 3.5 cm. There is a stapled margin at one end measuring 22 cm in length. The external surface is pink merrill smooth and glistening. The stomach wall measures up to 0.5 cm in thickness. The mucosa is pink merrill smooth and glistening with normal rugae and folds. No masses or lesions are grossly identified. [employer]ence E[employer] Supervisor sections are submitted in 1 cassette. Billing Fee Code(s) A: 17937 [facility] BASIC METABOLIC PANELon 03-30 Anion gap [Moles/Vol] 9 mmol/L MMOL/L [facility] Calcium [Mass/Vol] 8.4 mg/dL [facility] Chloride [Moles/Vol] 108 mmol/L High [facility] Comment on above: Please note: Triglyc eride levels of 600mg/dL or higher may positively bias chloride results by approximately 2.1 mmol CO2 [Moles/Vol] 18 mmol/L Low [facility] Creatinine [Mass/Vol] 0.92 mg/dL [facility] GFR COMMENT Average GFR for 50-59 years old = 93. [facility] Comment on above: Chronic Kidney disea se, GFR = <60. Kidney failure, GFR = <15. The GFR estimate is not adjusted for extreme body surface area or acute process, nor has it been validated for women or ethnic groups other than and . GFR/1.73 sq M.predicted among blacks MDRD (S/P/Bld) [Vol rate/Area] 81 mL/min/{1.73_m2} ml/min/1.73sq .m [facility] GFR/1.73 sq M.predicted among non-blacks MDRD (S/P/Bld) [Vol rate/Area] 67 mL/min/{1.73_m2} ml/min/1.73sq .m [facility] Glucose post fast [Mass/Vol] 184 mg/dL High [facility] Comment on above: NORMAL <100 mg/dL PREDIABETES 101-126 mg/dL DIABETES 126 mg/dL or higher Interpretation and review of laboratory results Abnormal [facility] Potassium [Moles/Vol] 4.6 mmol/L [facility] Sodium [Moles/Vol] 135 mmol/L Low [facility] Urea nitrogen [Mass/Vol] 16 mg/dL [facility] CBC, EDIF, PLATELETon 2022 ABSOLUTE BASOPHIL COUNT 0.0 10*3/uL 0.0 - 0.2 10*3/uL [facility] Basophils/100 WBC (Bld) 0.4 % 0.0 - 2.0 % [facility] Differential cell count method Nom (Bld) AUTO DIFF % [facility] Eosinophils (Bld) [#/Vol] 0.0 10*3/uL 0.0 - 0.7 10*3/uL [facility] Eosinophils/100 WBC (Bld) 0.2 % 0.0 - 11.0 % [facility] Erythrocyte distribution width (RBC) [Ratio] 15.0 % High 11.5 - 14.5 % [facility] Hematocrit (Bld) [Volume fraction] 38.3 % 36.0 - 48.0 % [facility] Hemoglobin (Bld) [Mass/Vol] 12.0 g/dL [facility] Interpretation and review of laboratory results Abnormal [facility] Lymphocytes (Bld) [#/Vol] 1.0 10*3/uL Low 1.2 - 3.4 10*3/uL [facility] Lymphocytes/100 WBC (Bld) 11.1 % Low 20.0 - 55.0 % [facility] MCH (RBC) [Entitic mass] 29.6 pg 26.0 - 35.0 PG [facility] MCHC (RBC) [Mass/Vol] 31.4 g/dL [facility] MCV (RBC) [Entitic vol] 94.2 fL A [facility] Monocytes (Bld) [#/Vol] 0.8 10*3/uL High 0.0 - 0.7 10*3/uL [facility] Monocytes/100 WBC (Bld) 8.2 % 0.0 - 10.0 % [facility] Neutrophils (Bld) [#/Vol] 7.5 10*3/uL High 1.4 - 6.5 10*3/uL [facility] Neutrophils/100 WBC (Bld) 80.1 % High 37.0 - 75.0 % [facility] Platelet mean volume (Bld) [Entitic vol] 10.2 fL [facility] Platelets (Bld) [#/Vol] 161 10*3/uL 130 - 400 10*3/uL [facility] RBC (Bld) [#/Vol] 4.06 10*6/uL 4.0 - 5.4 10*6/uL [facility] WBC (Bld) [#/Vol] 9.3 10*3/uL 3.6 - 11.0 10*3/uL [facility] CBC,PLATELETSon 04-12-2023 Erythrocyte distribution width (RBC) [Ratio] 14.5 % 11.5 - 14.5 % [facility] Hematocrit (Bld) [Volume fraction] 35.2 % Low 36.0 - 48.0 % [facility] Hemoglobin (Bld) [Mass/Vol] 11.3 g/dL Low [facility] Interpretation and review of laboratory results Abnormal [facility] MCH (RBC) [Entitic mass] 28.8 pg 26.0 - 35.0 PG [facility] MCHC (RBC) [Mass/Vol] 32.0 g/dL [facility] MCV (RBC) [Entitic vol] 90.0 fL [facility] Platelet mean volume (Bld) [Entitic vol] 9.9 fL [facility] Platelets (Bld) [#/Vol] 233 10*3/uL 130 - 400 10*3/uL [facility] RBC (Bld) [#/Vol] 3.91 10*6/uL Low 4.0 - 5.4 10*6/uL [facility] WBC (Bld) [#/Vol] 10.0 10*3/uL 3.6 - 11.0 10*3/uL [facility] GLUCOSE (POC DEVICE)on 04-12 GLUCOSE, POINT OF CARE [address] [facility] GLUCOSE, POINT OF CARE [address] [facility] Operator [id number] [facility] Operator [id number] [facility] GLUCOSE, POINT OF CARE [address] [facility] Interpretation and review of laboratory results Abnormal [facility] Operator [id number] [facility] GLUCOSE, POINT OF CARE [address] [facility] Interpretation and review of laboratory results Abnormal [facility] Operator [id number] [facility] GLUCOSE, POINT OF CARE [address] [facility] Interpretation and review of laboratory results Abnormal [facility] Switch Operator [id number] [facility] No Panel Informationon 04-12 Interpretation and review of laboratory results Abnormal [facility] BASIC METABOLIC PANELon 03-30 Anion gap [Moles/Vol] 10 mmol/L MMOL/L [facility] Calcium [Mass/Vol] 8.6 mg/dL [facility] Chloride [Moles/Vol] 108 mmol/L High [facility] Comment on above: Please note: Triglyc eride levels of 600mg/dL or higher may positively bias chloride results by approximately 2.1 mmol CO2 [Moles/Vol] 19 mmol/L Low [facility] Creatinine [Mass/Vol] 0.73 mg/dL [facility] GFR COMMENT Average GFR for 50-59 years old = 93. [facility] Comment on above: Chronic Kidney disea se, GFR = <60. Kidney failure, GFR = <15. The GFR estimate is not adjusted for extreme body surface area or acute process, nor has it been validated for women or ethnic groups other than and . GFR/1.73 sq M.predicted among blacks MDRD (S/P/Bld) [Vol rate/Area] 105 mL/min/{1.73_m2} ml/min/1.73sq .m [facility] GFR/1.73 sq M.predicted among non-blacks MDRD (S/P/Bld) [Vol rate/Area] 87 mL/min/{1.73_m2} ml/min/1.73sq .m [facility] Glucose post fast [Mass/Vol] 247 mg/dL High [facility] Comment on above: NORMAL <100 mg/dL PREDIABETES 101-126 mg/dL DIABETES 126 mg/dL or higher Interpretation and review of laboratory results Abnormal [facility] Potassium [Moles/Vol] 4.5 mmol/L [facility] Sodium [Moles/Vol] 137 mmol/L [facility] Urea nitrogen [Mass/Vol] 12 mg/dL [facility] Anion gap [Moles/Vol] 11 mmol/L MMOL/L [facility] Calcium [Mass/Vol] 9.0 mg/dL [facility] Chloride [Moles/Vol] 107 mmol/L [facility] Comment on above: Please note: Triglyc eride levels of 600mg/dL or higher may positively bias chloride results by approximately 2.1 mmol CO2 [Moles/Vol] 22 mmol/L [facility] Creatinine [Mass/Vol] 0.78 mg/dL [facility] GFR COMMENT Average GFR for 50-59 years old = 93. [facility] Comment on above: Chronic Kidney disea se, GFR = <60. Kidney failure, GFR = <15. The GFR estimate is not adjusted for extreme body surface area or acute process, nor has it been validated for women or ethnic groups other than and . GFR/1.73 sq M.predicted among blacks MDRD (S/P/Bld) [Vol rate/Area] 98 mL/min/{1.73_m2} ml/min/1.73sq .m [facility] GFR/1.73 sq M.predicted among non-blacks MDRD (S/P/Bld) [Vol rate/Area] 81 mL/min/{1.73_m2} ml/min/1.73sq .m [facility] Glucose post fast [Mass/Vol] 199 mg/dL High [facility] Comment on above: NORMAL <100 mg/dL PREDIABETES 101-126 mg/dL DIABETES 126 mg/dL or higher Interpretation and review of laboratory results Abnormal [facility] Potassium [Moles/Vol] 4.2 mmol/L [facility] Sodium [Moles/Vol] 140 mmol/L [facility] Urea nitrogen [Mass/Vol] 12 mg/dL [facility] CBC,PLATELETSon 04-11-2023 Erythrocyte distribution width (RBC) [Ratio] 14.4 % 11.5 - 14.5 % [facility] Hematocrit (Bld) [Volume fraction] 40.3 % 36.0 - 48.0 % [facility] Hemoglobin (Bld) [Mass/Vol] 13.2 g/dL [facility] MCH (RBC) [Entitic mass] 29.4 pg 26.0 - 35.0 PG [facility] MCHC (RBC) [Mass/Vol] 32.8 g/dL [facility] MCV (RBC) [Entitic vol] 89.6 fL A [facility] Platelet mean volume (Bld) [Entitic vol] 9.7 fL [facility] Platelets (Bld) [#/Vol] 223 10*3/uL 130 - 400 10*3/uL [facility] RBC (Bld) [#/Vol] 4.50 10*6/uL 4.0 - 5.4 10*6/uL [facility] WBC (Bld) [#/Vol] 8.6 10*3/uL 3.6 - 11.0 10*3/uL [facility] Erythrocyte distribution width (RBC) [Ratio] 14.1 % 11.5 - 14.5 % [facility] Hematocrit (Bld) [Volume fraction] 41.3 % 36.0 - 48.0 % [facility] Hemoglobin (Bld) [Mass/Vol] 13.3 g/dL [facility] MCH (RBC) [Entitic mass] 28.9 pg 26.0 - 35.0 PG [facility] MCHC (RBC) [Mass/Vol] 32.1 g/dL [facility] MCV (RBC) [Entitic vol] 90.0 fL [facility] Platelet mean volume (Bld) [Entitic vol] 9.8 fL [facility] Platelets (Bld) [#/Vol] 236 10*3/uL 130 - 400 10*3/uL [facility] RBC (Bld) [#/Vol] 4.60 10*6/uL 4.0 - 5.4 10*6/uL [facility] WBC (Bld) [#/Vol] 5.9 10*3/uL 3.6 - 11.0 10*3/uL [facility] GLUCOSE (POC DEVICE)on 04-11 GLUCOSE, POINT OF CARE [address] [facility] Interpretation and review of laboratory results Abnormal [facility] Operator [id number] [facility] MAGNESIUMon 04-11-2023 Magnesium [Mass/Vol] 2.1 mg/dL [facility] No Panel Informationon 04-11 [facility] PHOSPHATE, INORGANICon 04-11 Phosphate [Mass/Vol] 3.5 mg/dL [facility] REPEAT ABO/RH (D) TYPINGon 0 04-11-2023 ABO and Rh group Nom (Bld ) Positive [facility] Absolute lymphocyte countOrd ered By: Pamela Lentz on 02-09-2023 Lymphocytes Auto (Unsp spec) [#/Vol] 2.95 10*3/uL 0.83-4.51 [facility] Basophil percentageOrdered B y: Pamela Lentz on 02-09-2023 Basophils/100 WBC (Bld) 1.5 % 0-1 [facility] Bilirubin [Mass/Vol] 0.80 mg/dL 0.20-1.00 [facility] Comment on above: For patients on eltr ombopag therapy, use of Dimension [place] TBIL is not recommended. Chloride [Moles/Vol] 105 mmol/L 98-107 [facility] Eosinophils/100 WBC (Bld) 2.2 % 0-5 [facility] Glucose [Mass/Vol] 196 mg/dL 74-106 [facility] Comment on above: Fasting Glucose resu lt greater than or equal to 126 mg/dL suggests DIABETES MELLITUS per A.D.A. criteria. Neutrophils (Bld) [#/Vol] 3.6 10*3/uL 2.0-7.7 [facility] Neutrophils/100 WBC (Bld) 48.9 % 47-70 [facility] Potassium [Moles/Vol] 4.8 mmol/L 3.5-5.1 [facility] Protein [Mass/Vol] 7.0 g/dL 6.4-8.2 [facility] Sodium [Moles/Vol] 138 mmol/L 136-145 [facility] WBC (Bld) [#/Vol] 7.4 10*3/uL 4.4-11.0 [facility] Blood erythrocytes count (nu mber/volume)Ordered By: Pamela Lentz on 02-09-2023 RBC (Bld) [#/Vol] 4.52 10*6/uL 4.2-5.4 [facility] Blood hemoglobin measurement (mass/volume)Ordered By: Pamela Lentz on 02-09-2023 Hemoglobin (Bld) [Mass/Vol] 13.2 g/dL 12.0-15.0 [facility] Blood lymphocytes/100 leukoc ytesOrdered By: Pamela Lentz on 02-09-2023 Lymphocytes/100 WBC (Bld) 39.8 % 19-41 [facility] Blood monocytes/100 leukocyt esOrdered By: Pamela Lentz on 02-09-2023 Monocytes/100 WBC (Bld) 7.3 % 0-10 [facility] Blood platelet mean volumeOr dered By: Pamela Lentz on 02-09-2023 Platelet mean volume (Bld) [Entitic vol] 11.4 fL 6.2-12.0 [facility] Determination of erythrocyte mean corpuscular volume (MCV)Ordered By: Pamela Lentz on 02-09-2023 MCV (RBC) [Entitic vol] 92.9 fL 81-99 [facility] Hematocrit Auto (Bld) [Volum e fraction]Ordered By: [facility] on 02-09-2023 Hematocrit (Bld) [Volume fraction] 42.0 % 37-47 [facility] Laboratory - Chemistry and C hemistry - challengeOrdered By: [facility] on 02-09-2023 ALP [Catalytic activity/Vol] 94 U/L 45-117 [facility] ALT [Catalytic activity/Vol] 22 U/L 13-56 [facility] CO2 [Moles/Vol] 26.0 mmol/L 21.0-32.0 [facility] Globulin (S) [Mass/Vol] 3.6 g/dL 2.2-4.2 [facility] Urea nitrogen/Creatinine [Mass ratio] 16.8 mg/mg 10-20 [facility] Laboratory - Hematology and Cell countsOrdered By: [facility] on 02-09-2023 Erythrocyte distribution width (RBC) [Entitic vol] 44.8 fL 35.1-43.9 [facility] Erythrocyte distribution width (RBC) [Ratio] 13.1 % 11.6-14.6 [facility] Immature granulocytes/100 WBC (Bld) 0.300 % 0.0-0.9 [facility] Comment on above: IG% - Immature Granu locytes (promyelocytes, myelocytes and metamyelocytes) > 1% indicates that a LEFT SHIFT is Present. MCH (RBC) [Entitic mass] 29.2 pg 27.0-32.0 [facility] Nucleated RBC/100 WBC (Bld) [Ratio] 0 % 0-5 [facility] MCHC Auto (RBC) [Mass/Vol]Or dered By: Pamela Lentz on 02-09-2023 MCHC (RBC) [Mass/Vol] 31.4 g/dL 32-36 [facility] No Panel InformationOrdered By: Pamela Lentz on 02-09-2023 Estimated GFR (MDRD) Amer 83 mL/min >60 [facility] Comment on above: GFR Calc Estimated GFR (MDRD) Non-Af Amer 69 mL/min >60 [facility] Comment on above: Non- GFR Calc Platelets bldOrdered By: Dhara Lentz on 02-09-2023 Platelets (Bld) [#/Vol] 284 10*3/uL 150-450 [facility] Serum or plasma albumin robel urement (mass/volume)Ordered By: Pamela Lentz on 02-09-2023 Albumin [Mass/Vol] 3.4 g/dL 3.2-5.0 [facility] Serum or plasma albumin/glob ulin mass ratioOrdered By: Pamela Lentz on 02-09-2023 Albumin/Globulin [Mass ratio] 0.9 {ratio} 0.9-2.4 [facility] Serum or plasma calcium robel urement (mass/volume)Ordered By: Pamela Lentz on 02-09-2023 Calcium [Mass/Vol] 9.1 mg/dL 8.5-10.1 [facility] Serum or plasma creatinine m easurement (mass/volume)Ordered By: Pamela Lentz on 02-09-2023 Creatinine [Mass/Vol] 0.89 mg/dL 0.55-1.02 [facility] Comment on above: The validity of the calculated GFR & GFRAA in patients over 70 years has not been determined. Clinical correlation is essential. Serum or plasma urea nitroge n measurement (mass/volume)Ordered By: Pamela Lentz on 02-09-2023 Urea nitrogen [Mass/Vol] 15 mg/dL 7-18 [facility] Thin prep Papanicolaou smear with manual screeningOrdered By: Pamela Lentz on 02-09-2023 Thin prep Papanicolaou smear with manual screening 14 U/L 15 [facility] Thin prep Papanicolaou smear with manual screening 7 5-15 [facility] Whole blood hemoglobin A1c/t otal hemoglobin ratio (mass fraction)Ordered By: Dr. Brooks on 12-21-2022 HbA1c (Bld) [Mass fraction] 7.5 % 3.8-5.6 [facility] Comment on above: Normal < 5.7 % Predi abetic 5.7 - 6.4 % Diabetic >or= 6.5 % Please note range changes. Absolute lymphocyte countOrd ered By: Dr. Lentz on 11-20-2022 Lymphocytes Auto (Unsp spec) [#/Vol] 3.28 10*3/uL 0.83-4.51 [facility] Basophil percentageOrdered B y: Dr. Lentz on 11-20-2022 Basophils/100 WBC (Bld) 1.4 % 0-1 [facility] Bilirubin [Mass/Vol] 0.40 mg/dL 0.20-1.00 [facility] Comment on above: For patients on eltr ombopag therapy, use of Dimension [place] TBIL is not recommended. Chloride [Moles/Vol] 106 mmol/L 98-107 [facility] Eosinophils/100 WBC (Bld) 2.2 % 0-5 [facility] Glucose [Mass/Vol] 165 mg/dL 74-106 [facility] Comment on above: Fasting Glucose resu lt greater than or equal to 126 mg/dL suggests DIABETES MELLITUS per A.D.A. criteria. Neutrophils (Bld) [#/Vol] 3.6 10*3/uL 2.0-7.7 [facility] Neutrophils/100 WBC (Bld) 45.9 % 47-70 [facility] Potassium [Moles/Vol] 4.0 mmol/L 3.5-5.1 [facility] Protein [Mass/Vol] 6.7 g/dL 6.4-8.2 [facility] Sodium [Moles/Vol] 135 mmol/L 136-145 [facility] WBC (Bld) [#/Vol] 7.7 10*3/uL 4.4-11.0 [facility] Blood erythrocytes count (nu mber/volume)Ordered By: Dr. Lentz on 11-20-2022 RBC (Bld) [#/Vol] 4.45 10*6/uL 4.2-5.4 [facility] Blood hemoglobin measurement (mass/volume)Ordered By: Dr. Lentz on 11-20-2022 Hemoglobin (Bld) [Mass/Vol] 12.8 g/dL 12.0-15.0 [facility] Blood lymphocytes/100 leukoc ytesOrdered By: Dr. Lentz on 11-20-2022 Lymphocytes/100 WBC (Bld) 42.4 % 19-41 [facility] Blood monocytes/100 leukocyt esOrdered By: Dr. Lentz on 11-20-2022 Monocytes/100 WBC (Bld) 7.8 % 0-10 [facility] Blood platelet mean volumeOr dered By: Dr. Lentz on 11-20-2022 Platelet mean volume (Bld) [Entitic vol] 11.0 fL 6.2-12.0 [facility] Determination of erythrocyte mean corpuscular volume (MCV)Ordered By: Dr. Lentz on 11-20-2022 MCV (RBC) [Entitic vol] 91.2 fL 81-99 [facility] Hematocrit Auto (Bld) [Volum e fraction]Ordered By: Dr. Lentz on 11-20-2022 Hematocrit (Bld) [Volume fraction] 40.6 % 37-47 [facility] Laboratory - Chemistry and C hemistry - challengeOrdered By: Dr. Lentz on 11-20-2022 ALP [Catalytic activity/Vol] 89 U/L 45-117 [facility] ALT [Catalytic activity/Vol] 17 U/L 13-56 [facility] CO2 [Moles/Vol] 24.0 mmol/L 21.0-32.0 [facility] Globulin (S) [Mass/Vol] 3.4 g/dL 2.2-4.2 [facility] Urea nitrogen/Creatinine [Mass ratio] 23.3 mg/mg 10-20 [facility] Laboratory - Hematology and Cell countsOrdered By: Dr. Lentz on 11-20-2022 Erythrocyte distribution width (RBC) [Entitic vol] 44.1 fL 35.1-43.9 [facility] Erythrocyte distribution width (RBC) [Ratio] 13.2 % 11.6-14.6 [facility] Immature granulocytes/100 WBC (Bld) 0.300 % 0.0-0.9 [facility] Comment on above: IG% - Immature Granu locytes (promyelocytes, myelocytes and metamyelocytes) > 1% indicates that a LEFT SHIFT is Present. MCH (RBC) [Entitic mass] 28.8 pg 27.0-32.0 [facility] Nucleated RBC/100 WBC (Bld) [Ratio] 0 % 0-5 [facility] MCHC Auto (RBC) [Mass/Vol]Or dered By: Dr. Lentz on 11-20-2022 MCHC (RBC) [Mass/Vol] 31.5 g/dL 32-36 [facility] No Panel InformationOrdered By: Dr. Lentz on 11-20-2022 Estimated GFR (MDRD) Amer 93 mL/min >60 [facility] Comment on above: GFR Calc Estimated GFR (MDRD) Non-Af Amer 77 mL/min >60 [facility] Comment on above: Non- GFR Calc Platelets bldOrdered By: Dr. Lentz on 11-20-2022 Platelets (Bld) [#/Vol] 254 10*3/uL 150-450 [facility] Serum or plasma albumin robel urement (mass/volume)Ordered By: Dr. Lentz on 11-20-2022 Albumin [Mass/Vol] 3.3 g/dL 3.2-5.0 [facility] Serum or plasma albumin/glob ulin mass ratioOrdered By: Dr. Lentz on 11-20-2022 Albumin/Globulin [Mass ratio] 1.0 {ratio} 0.9-2.4 [facility] Serum or plasma calcium robel urement (mass/volume)Ordered By: Dr. Lentz on 11-20-2022 Calcium [Mass/Vol] 8.5 mg/dL 8.5-10.1 [facility] Serum or plasma creatinine m easurement (mass/volume)Ordered By: Dr. Lentz on 11-20-2022 Creatinine [Mass/Vol] 0.81 mg/dL 0.55-1.02 [facility] Comment on above: The validity of the calculated GFR & GFRAA in patients over 70 years has not been determined. Clinical correlation is essential. Serum or plasma urea nitroge n measurement (mass/volume)Ordered By: Dr. Lentz on 04-24-2023 Urea nitrogen [Mass/Vol] 19 mg/dL 7-18 [facility] Thin prep Papanicolaou smear with manual screeningOrdered By: Dr. Lentz on 11-20-2022 Thin prep Papanicolaou smear with manual screening 12 U/L 15-37 [facility] Thin prep Papanicolaou smear with manual screening 5 5-15 [facility] Office Visit (Primary Care T xt/Forms)on 09-22-2022 Follow-up visit Diagnoses/Problems Assessed Depression (311) (F32.A) Diabetes (250.00) (E11.9) Hyperlipemia (272.4) (E78.5) Rheumatoid arthritis (714.0) (M06.9) Insomnia (780.52) (G47.00) Morbid obesity with BMI of 45.0-49.9, adult (278.01,V85.42) (E66.01,Z68.42) Orders Diabetes Renew: Trulicity 1.5 MG/0.5ML Subcutaneous Solution Pen-injector; INJECT 1.5 MG Weekly Hemoglobin A1C; Status:Active; Requested for:[id number]; Insomnia Renew: traZODone HCl - 100 MG Oral Tablet; TAKE 1 TABLET AT BEDTIME Unlinked Temporarily Stop: Influenza, seasonal, injectable Patient Discussion/Summary increase to 1.5 3 month appt and lab Chief Complaint 3 MO FU. REV LABS History of Present Illness has seen nutrition, psy, sleep, labs ekg for pre bariatric eval 94 to 76 on last a1c, fbs avg 150+, tolerates Trulicity 0.75 without side effect bloating. Reviewed the goal of increasing to 1.5 after current supply is used insom doing well on trazodone to continue Hyperlipidemia- is on statin and a prudent diet. ra stable per Dr. Foster HTN-Takes and tolerates meds without side effects. No alcohol. no tobacco. no exercise. low salt. Reviewed recommendation for 150 minutes of exercise per week including 2 days of weight training if over age 50 Review of Systems General-no fatigue weight to within 10 pounds ENT no problems with vision swallowing Cardiac no chest pains palpitations change in exercise tolerance or capacity Pulmonary no cough shortness of breath GI no heartburn or abdominal pain Musculoskeletal no joint pains Active Problems Problems Acute upper respiratory infection (465.9) (J06.9) Allergic rhinitis due to allergen (477.9) (J30.9) Anxiety (300.00) (F41.9) Cervical lymphadenopathy (785.6) (R59.0) COVID-19 (079.89) (U07.1) Depression (311) (F32.A) Diabetes (250.00) (E11.9) Encounter for screening mammogram for malignant neoplasm of breast (V76.12) (Z12.31) Fibromyalgia (729.1) (M79.7) Fracture of metacarpal, closed (815.00) (S62.309A) Hyperlipemia (272.4) (E78.5) Infectious mononucleosis (075) (B27.90) Insomnia (780.52) (G47.00) Lumbar disc displacement without myelopathy (722.10) (M51.26) Lumbar radiculitis (724.4) (M54.16) Lymphoma (202.80) (C85.90) Morbid obesity with BMI of 50.0-59.9, adult (278.01,V85.43) (E66.01,Z68.43) Plantar fasciitis (728.71) (M72.2) Rheumatoid arthritis (714.0) (M06.9) Screen for colon cancer (V76.51) (Z12.11) Screening for breast cancer (V76.10) (Z12.39) Seasonal allergies (477.9) (J30.2) Tendonitis of ankle, right (727.06) (M77.51) Surgical History Problems History of Ankle arthroscopy History of Colonoscopy History of Dilation and curettage History of Meniscus repair History of Osteotomy History of Tonsillectomy with adenoidectomy Family History Mother Family history of diabetes mellitus (V18.0) (Z83.3) Family history of Lupus Father Family history of diabetes mellitus (V18.0) (Z83.3) Family history of hypertension (V17.49) (Z82.49) Grandparent Family history of acute myocardial infarction (V17.3) (Z82.49) Social History Problems Consumes alcohol occasionally (V49.89) (Z78.9) Does not use illicit drugs (V49.89) (Z78.9) Does not use tobacco (V49.89) (Z78.9) Patient has living will (V49.89) (Z78.9) Current Meds Medication NameInstruction Aspirin 81 MG TABSTAKE 1 TABLET DAILY. Atorvastatin Calcium 40 MG Oral TabletTAKE 1 TABLET DAILY. Blood Glucose Test In Vitro StripUSE 1 STRIP Twice daily DULoxetine HCl - 60 MG Oral Capsule Delayed Release ParticlesTAKE 1 CAPSULE Daily Enbrel SureClick 50 MG/ML Subcutaneous Solution Auto-injector Folic Acid 1 MG Oral TabletTAKE 1 TABLET TWICE DAILY. Hydroxychloroquine Sulfate 200 MG Oral TabletTAKE 1 TABLET TWICE DAILY WITH FOOD. LancetsTST TWICE A DAY, DUE TO FLUC BLOODSUGAR Losartan Potassium 50 MG Oral TabletTake 1 tablet daily Meloxicam 15 MG Oral TabletTAKE 1 TABLET DAILY. metFORMIN HCl ER 500 MG Oral Tablet Extended Release 24 HourTAKE 2 TABLET Daily Methotrexate Sodium 2.5 MG Oral TabletTAKE 8 TABLETS PER WEEK. predniSONE 10 MG Oral TabletTAKE 1 TABLET DAILY DIRECTED. traMADol HCl - 50 MG Oral Tablet1-2 tabs oral tid prn pain traZODone HCl - 100 MG Oral TabletTAKE 1 TABLET AT BEDTIME. Trulicity 0.75 MG/0.5ML Subcutaneous Solution Pen-injectorINJECT 0.75 MG Weekly Allergies Medication Bactrim Keflex Levaquin Latex Gloves Vitals Vital Signs Recorded: [id number] 08:11AM Heart Rate: 58 Systolic: 172 Diastolic: 94 Height: 5 ft 3 in Weight: 281 lb 8 oz BMI Calculated: 49.87 kg/m2 BSA Calculated: 2.24 Tobacco Use: b) No Falls Screening (Age 18+): a) No falls within the last year O2 Saturation: 98 Physical Exam General: Alert, No acute distress. Appears stated age Eye: Pupils are equal, round and reactive to light, Extraocular movements are intact, Normal conjunctiva. Neck: Supple, Non-tender, No carotid bruit, No jugu (more content not included)... Normal [employer] Tobacco Screening.on 023 Fall risk assessment a) No falls within the last year [facility] Work Phone: Tobacco use status [facility] b) No M [facility] Work Phone: ECGOrdered By: Ty fry on 09-21-2022 [facility] Work Phone: XR Chest PA and Lateralon IMPRESSION: No acute cardiopulmonary process. RADIOLOGY EXAM: XR CHEST PA AND LATERAL HISTORY: pre op COMPARISON: None. TECHNIQUE: 2 views FINDINGS: Lungs and pleural spaces are clear. Normal heart size and pulmonary vascularity. No acute osseous abnormality. RADIOLOGY Jefe Ellison MD - 09/21/2022 EXAM: XR CHEST PA AND LATERAL HISTORY: pre op COMPARISON: None. TECHNIQUE: 2 views FINDINGS: Lungs and pleural spaces are clear. Normal heart size and pulmonary vascularity. No acute osseous abnormality. IMPRESSION IMPRESSION: No acute cardiopulmonary process. [facility] Radiology Study observation (narrative) [facility] [facility] XR Chest PA and LateralOrder ed By: Jefe Singh on 09-21-2022 [facility] Work Phone: DIAGNOSTIC UPPER ENDOSCOPYon 09-08-2022 Body surface area Derived from formula 2.24 m2 [facility] Patient Name: Anthony Sawyer Procedure Date: 09/08/2022 8:20 AM Date of : 1965 Admit Type: Outpatient Age: 56 Room: Procedure Room #1 Gender: Female Note Status: Finalized Attending MD: CARLY BLANCO DO, [id number] Instrument Name: [id number] - [id number] [id number] Procedure: Upper GI endoscopy Attending Participation: I personally performed the entire procedure. Indications: Heartburn Providers: CARLY BLANCO DO Referring MD: APRIL BROOKS MD Complications: No immediate complications. Estimated Blood Loss: Estimated blood loss was minimal. Medicines: Propofol per Anesthesia Procedure: Pre-Anesthesia Assessment: - Prior to the procedure, a History and Physical was performed, and patient medications, allergies and sensitivities were reviewed. The patient's tolerance of previous anesthesia was reviewed. After obtaining informed consent, the endoscope was passed under direct vision. Throughout the procedure, the patient's blood pressure, pulse, and oxygen saturations were monitored continuously. CO2 was used. The Endoscope was introduced through the mouth, and advanced to the second part of duodenum. The upper GI endoscopy was accomplished without difficulty. The patient tolerated the procedure well. Findings: The esophagus was normal. Diffuse moderate inflammation characterized by erythema was found in the gastric antrum. Biopsies were taken with a cold forceps for Helicobacter pylori testing. The examined duodenum was normal. Impression: - Normal esophagus. - Gastritis. Biopsied. - Normal examined duodenum. Recommendation: - Discharge patient to home. - Resume previous diet. - Continue present medications. - Await pathology results. Procedure Code(s): --- Professional --- 20910, Esophagogastroduode noscopy, flexible, transoral; with biopsy, single or multiple Diagnosis Code(s): --- Professional --- K29.70, Gastritis, unspecified, without bleeding R12, Heartburn CPT copyright 2020 [employer]. All rights reserved. The codes documented in this report are preliminary and upon operations consultant review may be revised to meet current compliance requirements. DO CARLY Marie DO 09/08/2022 8:32:59 AM This report has been signed electronically. Number of Addenda: 0 Note Initiated On: 09/08/2022 8:20 AM LAB, [facility] Radiology Study observation (narrative) [facility] Absolute lymphocyte countOrd ered By: Dr. Lentz on 08-29-2022 Lymphocytes Auto (Unsp spec) [#/Vol] 2.40 10*3/uL 0.83-4.51 [facility] Basophil percentageOrdered B y: Dr. Lentz on 08-29-2022 Basophils/100 WBC (Bld) 0.9 % 0-1 [facility] Bilirubin [Mass/Vol] 0.90 mg/dL 0.20-1.00 [facility] Comment on above: For patients on eltr ombopag therapy, use of Dimension [place] TBIL is not recommended. Chloride [Moles/Vol] 106 mmol/L 98-107 [facility] Eosinophils/100 WBC (Bld) 2.4 % 0-5 [facility] Glucose [Mass/Vol] 186 mg/dL 74-106 [facility] Comment on above: Fasting Glucose resu lt greater than or equal to 126 mg/dL suggests DIABETES MELLITUS per A.D.A. criteria. Neutrophils (Bld) [#/Vol] 2.7 10*3/uL 2.0-7.7 [facility] Neutrophils/100 WBC (Bld) 46.2 % 47-70 [facility] Potassium [Moles/Vol] 3.8 mmol/L 3.5-5.1 [facility] Protein [Mass/Vol] 6.9 g/dL 6.4-8.2 [facility] Sodium [Moles/Vol] 139 mmol/L 136-145 [facility] WBC (Bld) [#/Vol] 5.9 10*3/uL 4.4-11.0 [facility] Blood erythrocytes count (nu mber/volume)Ordered By: Dr. Lentz on 08-29-2022 RBC (Bld) [#/Vol] 4.75 10*6/uL 4.2-5.4 [facility] Blood hemoglobin measurement (mass/volume)Ordered By: Dr. Lentz on 08-29-2022 Hemoglobin (Bld) [Mass/Vol] 13.5 g/dL 12.0-15.0 [facility] Blood lymphocytes/100 leukoc ytesOrdered By: Dr. Lentz on 08-29-2022 Lymphocytes/100 WBC (Bld) 40.9 % 19-41 [facility] Blood monocytes/100 leukocyt esOrdered By: Dr. Lentz on 08-29-2022 Monocytes/100 WBC (Bld) 9.4 % 0-10 [facility] Blood platelet mean volumeOr dered By: Dr. Lentz on 08-29-2022 Platelet mean volume (Bld) [Entitic vol] 11.2 fL 6.2-12.0 [facility] Determination of erythrocyte mean corpuscular volume (MCV)Ordered By: Dr. Lentz on 08-29-2022 MCV (RBC) [Entitic vol] 89.3 fL 81-99 [facility] Hematocrit Auto (Bld) [Volum e fraction]Ordered By: Dr. Lentz on 08-29-2022 Hematocrit (Bld) [Volume fraction] 42.4 % 37-47 [facility] Laboratory - Chemistry and C hemistry - challengeOrdered By: Dr. Lentz on 08-29-2022 ALP [Catalytic activity/Vol] 82 U/L 45-117 [facility] ALT [Catalytic activity/Vol] 17 U/L 13-56 [facility] CO2 [Moles/Vol] 24.0 mmol/L 21.0-32.0 [facility] Globulin (S) [Mass/Vol] 3.5 g/dL 2.2-4.2 [facility] Urea nitrogen/Creatinine [Mass ratio] 14.0 mg/mg 10-20 [facility] Laboratory - Hematology and Cell countsOrdered By: Dr. Lentz on 08-29-2022 Erythrocyte distribution width (RBC) [Entitic vol] 42.4 fL 35.1-43.9 [facility] Erythrocyte distribution width (RBC) [Ratio] 12.8 % 11.6-14.6 [facility] Immature granulocytes/100 WBC (Bld) 0.200 % 0.0-0.9 [facility] Comment on above: IG% - Immature Granu locytes (promyelocytes, myelocytes and metamyelocytes) > 1% indicates that a LEFT SHIFT is Present. MCH (RBC) [Entitic mass] 28.4 pg 27.0-32.0 [facility] Nucleated RBC/100 WBC (Bld) [Ratio] 0 % 0-5 [facility] MCHC Auto (RBC) [Mass/Vol]Or dered By: Dr. Lentz on 08-29-2022 MCHC (RBC) [Mass/Vol] 31.8 g/dL 32-36 [facility] No Panel InformationOrdered By: Dr. Lentz on 08-29-2022 Estimated GFR (MDRD) Amer 97 mL/min >60 [facility] Comment on above: GFR Calc Estimated GFR (MDRD) Non-Af Amer 80 mL/min >60 [facility] Comment on above: Non- GFR Calc Platelets bldOrdered By: Dr. Lentz on 08-29-2022 Platelets (Bld) [#/Vol] 290 10*3/uL 150-450 [facility] Serum or plasma albumin robel urement (mass/volume)Ordered By: Dr. Lentz on 08-29-2022 Albumin [Mass/Vol] 3.4 g/dL 3.2-5.0 [facility] Serum or plasma albumin/glob ulin mass ratioOrdered By: Dr. Lentz on 08-29-2022 Albumin/Globulin [Mass ratio] 1.0 {ratio} 0.9-2.4 [facility] Serum or plasma calcium robel urement (mass/volume)Ordered By: Dr. Lentz on 08-29-2022 Calcium [Mass/Vol] 9.0 mg/dL 8.5-10.1 [facility] Serum or plasma creatinine m easurement (mass/volume)Ordered By: Dr. Lentz on 08-29-2022 Creatinine [Mass/Vol] 0.79 mg/dL 0.55-1.02 [facility] Comment on above: The validity of the calculated GFR & GFRAA in patients over 70 years has not been determined. Clinical correlation is essential. Serum or plasma urea nitroge n measurement (mass/volume)Ordered By: Dr. Lentz on 08-29-2022 Urea nitrogen [Mass/Vol] 11 mg/dL 7-18 [facility] Thin prep Papanicolaou smear with manual screeningOrdered By: Dr. Lentz on 08-29-2022 Thin prep Papanicolaou smear with manual screening 14 U/L 15-37 [facility] Thin prep Papanicolaou smear with manual screening 9 5-15 [facility] Whole blood hemoglobin A1c/t otal hemoglobin ratio (mass fraction)Ordered By: Dr. Brooks on 08-29-2022 HbA1c (Bld) [Mass fraction] 7.6 % 3.8-5.6 [facility] Comment on above: Normal < 5.7 % Predi abetic 5.7 - 6.4 % Diabetic >or= 6.5 % Please note range changes. Office Visit (Primary Care T xt/Forms)on 06-27-2022 Follow-up visit Diagnoses/Problems Assessed Hyperlipemia (272.4) (E78.5) Rheumatoid arthritis (714.0) (M06.9) Insomnia (780.52) (G47.00) Diabetes (250.00) (E11.9) Morbid obesity with BMI of 50.0-59.9, adult (278.01,V85.43) (E66.01,Z68.43) Orders Diabetes Start: Trulicity 0.75 MG/0.5ML Subcutaneous Solution Pen-injector; INJECT 0.75 MG Weekly Hemoglobin A1C; Status:Active; Requested for:27Jun2022; Hyperlipemia Renew: Atorvastatin Calcium 40 MG Oral Tablet; TAKE 1 TABLET DAILY Insomnia Renew: traZODone HCl - 100 MG Oral Tablet; TAKE 1 TABLET AT BEDTIME Unlinked Temporarily Stop: Pneumococcal polysaccharide vaccine, 23 valent Patient Discussion/Summary 3 month appt and lab start trulicity report bs in a month Chief Complaint 3 MO FU. REV LABS History of Present Illness Since the last office visit there have been no interval operations, hospitalizations, important illnesses or injuries. discussed gastric bypass dm a1c 94, cks fbs avg 180, pre meal 211. has been on pred for knee for 2 weeks int that period. 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 No alcohol. no tobacco. no exercise. low salt. Reviewed recommendation for 150 minutes of exercise per week including 2 days of weight training if over age 50 Review of Systems General-no fatigue weight to within 10 pounds ENT no problems with vision swallowing Cardiac no chest pains palpitations change in exercise tolerance or capacity Pulmonary no cough shortness of breath GI no heartburn or abdominal pain Musculoskeletal no joint pains Active Problems Problems Acute upper respiratory infection (465.9) (J06.9) Allergic rhinitis due to allergen (477.9) (J30.9) Anxiety (300.00) (F41.9) Cervical lymphadenopathy (785.6) (R59.0) COVID-19 (079.89) (U07.1) Depression (311) (F32.A) Diabetes (250.00) (E11.9) Encounter for screening mammogram for malignant neoplasm of breast (V76.12) (Z12.31) Fibromyalgia (729.1) (M79.7) Fracture of metacarpal, closed (815.00) (S62.309A) Hyperlipemia (272.4) (E78.5) Infectious mononucleosis (075) (B27.90) Insomnia (780.52) (G47.00) Lumbar disc displacement without myelopathy (722.10) (M51.26) Lumbar radiculitis (724.4) (M54.16) Lymphoma (202.80) (C85.90) Plantar fasciitis (728.71) (M72.2) Rheumatoid arthritis (714.0) (M06.9) Screen for colon cancer (V76.51) (Z12.11) Screening for breast cancer (V76.10) (Z12.39) Seasonal allergies (477.9) (J30.2) Tendonitis of ankle, right (727.06) (M77.51) Surgical History Problems History of Ankle arthroscopy History of Colonoscopy History of Dilation and curettage History of Meniscus repair History of Osteotomy History of Tonsillectomy with adenoidectomy Family History Mother Family history of diabetes mellitus (V18.0) (Z83.3) Family history of Lupus Father Family history of diabetes mellitus (V18.0) (Z83.3) Family history of hypertension (V17.49) (Z82.49) Grandparent Family history of acute myocardial infarction (V17.3) (Z82.49) Social History Problems Consumes alcohol occasionally (V49.89) (Z78.9) Does not use illicit drugs (V49.89) (Z78.9) Does not use tobacco (V49.89) (Z78.9) Patient has living will (V49.89) (Z78.9) Current Meds Medication NameInstruction Aspirin 81 MG TABSTAKE 1 TABLET DAILY. Atorvastatin Calcium 40 MG Oral TabletTAKE 1 TABLET DAILY. Blood Glucose Test In Vitro StripUSE 1 STRIP Twice daily DULoxetine HCl - 60 MG Oral Capsule Delayed Release ParticlesTAKE 1 CAPSULE Daily Enbrel SureClick 50 MG/ML Subcutaneous Solution Auto-injector Folic Acid 1 MG Oral TabletTAKE 1 TABLET TWICE DAILY. Hydroxychloroquine Sulfate 200 MG Oral TabletTAKE 1 TABLET TWICE DAILY WITH FOOD. LancetsTST TWICE A DAY, DUE TO FLUC BLOODSUGAR Losartan Potassium 50 MG Oral TabletTake 1 tablet daily Meloxicam 15 MG Oral TabletTAKE 1 TABLET DAILY. metFORMIN HCl ER 500 MG Oral Tablet Extended Release 24 HourTAKE 2 TABLET Daily Methotrexate Sodium 2.5 MG Oral TabletTAKE 8 TABLETS PER WEEK. predniSONE 10 MG Oral TabletTAKE 1 TABLET DAILY DIRECTED. traMADol HCl - 50 MG Oral Tablet1-2 tabs oral tid prn pain traZODone HCl - 100 MG Oral TabletTAKE 1 TABLET AT BEDTIME. Allergies Medication Bactrim Keflex Levaquin Latex Gloves Vitals Vital Signs Recorded: 27Jun2022 08:05AM Heart Rate: 66 Systolic: 140 Diastolic: 86 Height: 5 ft 3 in Weight: 291 lb 3 oz BMI Calculated: 51.58 kg/m2 BSA Calculated: 2.27 Tobacco Use: b) No Falls Screening (Age 18+): b) One or more falls in the last year O2 Saturation: 98 Physical Exam General: Alert, No acute distress. Appears stated age Eye: Pupils are equal, round and reactive to light, Extraocular movements are intact, Normal conjunctiva. Neck: Supple, Non-tender, No carotid bruit, No jugular venous distention, No lymphadenopathy, No thyromegaly. Respiratory: Lungs are clear to auscultation, Respirations are non-labo (more content not included)... Normal Touch[employer]SONE Tobacco Screening.on 022 Fall risk assessment b) One or more falls in the last year [facility] Work Phone: Tobacco use status CPHS b) No M [facility] Work Phone: Absolute lymphocyte counton 06-09-2022 Lymphocytes Auto (Unsp spec) [#/Vol] 3.58 10*3/uL 0.83-4.51 [facility] Work Phone: Basophil percentageon 2021 Basophils/100 WBC (Bld) 1.0 % 0-1 [facility] Work Phone: Bilirubin [Mass/Vol] 0.90 mg/dL 0.20-1.00 [facility] Work Phone: Comment on above: For patients on eltr ombopag therapy, use of Dimension [place] TBIL is not recommended. Chloride [Moles/Vol] 104 mmol/L 98-107 [facility] Work Phone: Eosinophils/100 WBC (Bld) 1.7 % 0-5 [facility] Work Phone: Glucose [Mass/Vol] 211 mg/dL 74-106 [facility] Work Phone: Comment on above: Glucose result great er than or equal to 200 mg/dLsuggests DIABETES MELLITUS per A.D.A. criteria. Neutrophils (Bld) [#/Vol] 4.1 10*3/uL 2.0-7.7 [facility] Work Phone: Neutrophils/100 WBC (Bld) 46.1 % 47-70 [facility] Work Phone: Potassium [Moles/Vol] 4.0 mmol/L 3.5-5.1 [facility] Work Phone: Protein [Mass/Vol] 6.5 g/dL 6.4-8.2 [facility] Work Phone: Sodium [Moles/Vol] 137 mmol/L 136-145 [facility] Work Phone: WBC (Bld) [#/Vol] 8.8 10*3/uL 4.4-11.0 [facility] Work Phone: Blood erythrocytes count (nu mber/volume)on 06-09-2022 RBC (Bld) [#/Vol] 4.45 10*6/uL 4.2-5.[facility]: Blood hemoglobin measurement (mass/volume)on 06-09-2022 Hemoglobin (Bld) [Mass/Vol] 12.9 g/dL 12.0-15.0 [facility] Work Phone: Blood lymphocytes/100 leukoc yteson 06-09-2022 Lymphocytes/100 WBC (Bld) 40.6 % 19-41 [facility] Work Phone: Blood monocytes/100 leukocyt eson 06-09-2022 Monocytes/100 WBC (Bld) 10.1 % 0-10 [facility] Work Phone: Blood platelet mean volumeon 06-09-2022 Platelet mean volume (Bld) [Entitic vol] 11.1 fL 6.2-12.0 [facility] Work Phone: Determination of erythrocyte mean corpuscular volume (MCV)on 06-09-2022 MCV (RBC) [Entitic vol] 92.1 fL 81-99 [facility] Work Phone: Hematocrit Auto (Bld) [Volum e fraction]on 06-09-2022 Hematocrit (Bld) [Volume fraction] 41.0 % 37-47 [facility] Work Phone: Laboratory - Chemistry and C hemistry - challengeon 06-09-2022 ALP [Catalytic activity/Vol] 96 U/L 45-117 [facility] Work Phone: ALT [Catalytic activity/Vol] 21 U/L 13-56 [facility] Work Phone: CO2 [Moles/Vol] 24.0 mmol/L 21.0-32.0 [facility] Work Phone: Globulin (S) [Mass/Vol] 3.3 g/dL 2.2-4.2 [facility] Work Phone: Urea nitrogen/Creatinine [Mass ratio] 23.6 mg/mg 10-20 [facility] Work Phone: Laboratory - Hematology and Cell countson 06-09-2022 Erythrocyte distribution width (RBC) [Entitic vol] 42.7 fL 35.1-43.9 [facility] Work Phone: Erythrocyte distribution width (RBC) [Ratio] 12.7 % 11.6-14.6 [facility] Work Phone: Immature granulocytes/100 WBC (Bld) 0.500 % 0.0-0.9 [facility] Work Phone: Comment on above: IG% - Immature Granu locytes (promyelocytes, myelocytes and metamyelocytes) > 1% indicates that a LEFT SHIFT is Present. MCH (RBC) [Entitic mass] 29.0 pg 27.0-32.0 [facility] Work Phone: Nucleated RBC/100 WBC (Bld) [Ratio] 0 % 0-5 [facility] Work Phone: HbA1c (Bld) [Mass fraction] 9.40 % 3.8-5.6% [facility] Work Phone: MCHC Auto (RBC) [Mass/Vol]on 06-09-2022 MCHC (RBC) [Mass/Vol] 31.5 g/dL 32-36 [facility] Work Phone: No Panel Informationon 06-09 Estimated GFR (MDRD) Amer 94 mL/min >60 [facility] Work Phone: Comment on above: GFR Calc Estimated GFR (MDRD) Non-Af Amer 78 mL/min >60 [facility] Work Phone: Comment on above: Non- GFR Calc Platelets bldon 06-09-2022 Platelets (Bld) [#/Vol] 295 10*3/uL 150-450 [facility] Work Phone: Serum or plasma albumin robel urement (mass/volume)on 06-09-2022 Albumin [Mass/Vol] 3.2 g/dL 3.2-5.0 [facility] Work Phone: Serum or plasma albumin/glob ulin mass ratioon 06-09-2022 Albumin/Globulin [Mass ratio] 1.0 {ratio} 0.9-2.4 [facility] Work Phone: Serum or plasma calcium robel urement (mass/volume)on 06-09-2022 Calcium [Mass/Vol] 8.7 mg/dL 8.5-10.1 [facility] Work Phone: Serum or plasma creatinine m easurement (mass/volume)on 06-09-2022 Creatinine [Mass/Vol] 0.80 mg/dL 0.55-1.02 [facility] Work Phone: Comment on above: The validity of the calculated GFR & GFRAA in patients over 70 years has not been determined. Clinical correlation is essential. Serum or plasma urea nitroge n measurement (mass/volume)on 06-09-2022 Urea nitrogen [Mass/Vol] 19 mg/dL 7-18 [facility] Work Phone: Thin prep Papanicolaou smear with manual screeningon 06-09-2022 Thin prep Papanicolaou smear with manual screening 14 U/L 15-37 [facility] Work Phone: Thin prep Papanicolaou smear with manual screening 9 5-15 [facility] Work Phone: Whole blood hemoglobin A1c/t otal hemoglobin ratio (mass fraction)on 06-09-2022 HbA1c (Bld) [Mass fraction] 9.4 % 3.8-5.6 [facility] Work Phone: Comment on above: Normal < 5.7 % Predi abetic 5.7 - 6.4 % Diabetic >or= 6.5 % Please note range changes. Office Visit (Primary Care T xt/Forms)on 03-14-2022 Follow-up visit Diagnoses/Problems Assessed Diabetes (250.00) (E11.9) Insomnia (780.52) (G47.00) Rheumatoid arthritis (714.0) (M06.9) Orders Diabetes Start: Blood Glucose Test In Vitro Strip; USE 1 STRIP Twice daily Hemoglobin A1C; Status:Active; Requested for:[id number]; Start: Lancets; TST TWICE A DAY, DUE TO FLUC BLOODSUGAR Start: Losartan Potassium 50 MG Oral Tablet; Take 1 tablet daily Renew: metFORMIN HCl ER 500 MG Oral Tablet Extended Release 24 Hour; TAKE 2 TABLET Daily Insomnia Renew: traZODone HCl - 100 MG Oral Tablet; TAKE 1 TABLET AT BEDTIME Patient Discussion/Summary increse met 500 to 2 a day and report in 2 weeks bs readings will then consider glp1 add arb appt and labs about 3 mo Chief Complaint 3 MO FU. REV LABS History of Present Illness Since the last office visit there have been no interval operations, hospitalizations, important illnesses or injuries. 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 not on marilu /arb Insomnia- talking and tolerating meds, SL- nil, MARLEE-0, no hangover, restorative sleep. Desires to continue med. has baljinder and sees ortho asks re bariatric surgery ra tram lentz Review of Systems General-no fatigue weight to within 10 pounds ENT no problems with vision swallowing Cardiac no chest pains palpitations change in exercise tolerance or capacity Pulmonary no cough shortness of breath GI no heartburn or abdominal pain Musculoskeletal no joint pains Active Problems Problems Acute upper respiratory infection (465.9) (J06.9) Allergic rhinitis due to allergen (477.9) (J30.9) Anxiety (300.00) (F41.9) Cervical lymphadenopathy (785.6) (R59.0) COVID-19 (079.89) (U07.1) Depression (311) (F32.A) Diabetes (250.00) (E11.9) Encounter for screening mammogram for malignant neoplasm of breast (V76.12) (Z12.31) Fibromyalgia (729.1) (M79.7) Fracture of metacarpal, closed (815.00) (S62.309A) Hyperlipemia (272.4) (E78.5) Infectious mononucleosis (075) (B27.90) Insomnia (780.52) (G47.00) Lumbar disc displacement without myelopathy (722.10) (M51.26) Lumbar radiculitis (724.4) (M54.16) Lymphoma (202.80) (C85.90) Plantar fasciitis (728.71) (M72.2) Rheumatoid arthritis (714.0) (M06.9) Screen for colon cancer (V76.51) (Z12.11) Screening for breast cancer (V76.10) (Z12.39) Seasonal allergies (477.9) (J30.2) Tendonitis of ankle, right (727.06) (M77.51) Surgical History Problems History of Ankle arthroscopy History of Colonoscopy History of Dilation and curettage History of Meniscus repair History of Osteotomy History of Tonsillectomy with adenoidectomy Family History Mother Family history of diabetes mellitus (V18.0) (Z83.3) Family history of Lupus Father Family history of diabetes mellitus (V18.0) (Z83.3) Family history of hypertension (V17.49) (Z82.49) Grandparent Family history of acute myocardial infarction (V17.3) (Z82.49) Social History Problems Consumes alcohol occasionally (V49.89) (Z78.9) Does not use illicit drugs (V49.89) (Z78.9) Does not use tobacco (V49.89) (Z78.9) Patient has living will (V49.89) (Z78.9) Current Meds Medication NameInstruction Aspirin 81 MG TABSTAKE 1 TABLET DAILY. Atorvastatin Calcium 40 MG Oral TabletTAKE 1 TABLET DAILY. DULoxetine HCl - 60 MG Oral Capsule Delayed Release ParticlesTAKE 1 CAPSULE Daily Enbrel SureClick 50 MG/ML Subcutaneous Solution Auto-injector Folic Acid 1 MG Oral TabletTAKE 1 TABLET TWICE DAILY. Hydroxychloroquine Sulfate 200 MG Oral TabletTAKE 1 TABLET TWICE DAILY WITH FOOD. Meloxicam 15 MG Oral TabletTAKE 1 TABLET DAILY. metFORMIN HCl ER 500 MG Oral Tablet Extended Release 24 HourTake 1 tablet daily Methotrexate Sodium 2.5 MG Oral TabletTAKE 8 TABLETS PER WEEK. predniSONE 10 MG Oral TabletTAKE 1 TABLET DAILY DIRECTED. traMADol HCl - 50 MG Oral Tablet1-2 tabs oral tid prn pain traZODone HCl - 100 MG Oral TabletTAKE 1 TABLET AT BEDTIME. Allergies Medication Bactrim Keflex Levaquin Latex Gloves Vitals Vital Signs Recorded: [id number] 08:14AM Heart Rate: 58 Systolic: 134 Diastolic: 78 Height: 5 ft 3 in Weight: 299 lb 6 oz BMI Calculated: 53.03 kg/m2 BSA Calculated: 2.3 Tobacco Use: b) No PHQ-2 #1. Over the last 2 weeks have you felt down, depressed or hopeless? (If yes, answer PHQ-9 below): No PHQ-2 #2. Over the last 2 weeks have you felt little interest or pleasure in doing things? (If yes, answer PHQ-9 below): No Falls Screening (Age 18+): a) No falls within the last year O2 Saturation: 98 Physical Exam General: Alert, No acute distress. Appears stated age Eye: Pupils are equal, round and reactive to light, Extraocular movements are intact, Normal conjunctiva. Neck: Supple, Non-tender, No carotid bruit, No jugular venous distention, No lymphadenopathy, No thyromegaly. Respiratory: Lungs are clear to auscultation, Respirations are non-labored, Breath sounds are equal. Cardiovascula (more content not included)... Normal [employer] Tobacco Screening.on 022 Adult depression screening assessment No [facility] Work Phone: Fall risk assessment a) No falls within the last year [facility] Work Phone: Tobacco use status CPHS b) No M [facility] Work Phone: Absolute lymphocyte counton 03-03-2022 Lymphocytes Auto (Unsp spec) [#/Vol] 2.54 10*3/uL 0.83-4.51 [facility] Work Phone: Basophil percentageon 2021 Basophils/100 WBC (Bld) 1.1 % 0-1 [facility] Work Phone: Bilirubin [Mass/Vol] 0.80 mg/dL 0.20-1.00 [facility] Work Phone: Comment on above: For patients on eltr ombopag therapy, use of Dimension [place] TBIL is not recommended. Chloride [Moles/Vol] 105 mmol/L 98-107 [facility] Work Phone: Eosinophils/100 WBC (Bld) 1.2 % 0-5 [facility] Work Phone: Glucose [Mass/Vol] 243 mg/dL 74-106 [facility] Work Phone: Comment on above: Glucose result great er than or equal to 200 mg/dLsuggests DIABETES MELLITUS per A.D.A. criteria. Neutrophils (Bld) [#/Vol] 4.8 10*3/uL 2.0-7.7 [facility] Work Phone: Neutrophils/100 WBC (Bld) 59.4 % 47-70 [facility] Work Phone: Potassium [Moles/Vol] 4.0 mmol/L 3.5-5.1 [facility] Work Phone: Protein [Mass/Vol] 7.0 g/dL 6.4-8.2 [facility] Work Phone: Sodium [Moles/Vol] 136 mmol/L 136-145 [facility] Work Phone: WBC (Bld) [#/Vol] 8.1 10*3/uL 4.4-11.0 [facility] Work Phone: Blood erythrocytes count (nu mber/volume)on 03-03-2022 RBC (Bld) [#/Vol] 4.31 10*6/uL 4.2-5.4 [facility] Work Phone: Blood hemoglobin measurement (mass/volume)on 03-03-2022 Hemoglobin (Bld) [Mass/Vol] 13.0 g/dL 12.0-15.0 [facility] Work Phone: Blood lymphocytes/100 leukoc yteson 03-03-2022 Lymphocytes/100 WBC (Bld) 31.4 % 19-41 [facility] Work Phone: Blood monocytes/100 leukocyt eson 03-03-2022 Monocytes/100 WBC (Bld) 6.7 % 0-10 [facility] Work Phone: Blood platelet mean volumeon 03-03-2022 Platelet mean volume (Bld) [Entitic vol] 11.3 fL 6.2-12.0 [facility] Work Phone: Determination of erythrocyte mean corpuscular volume (MCV)on 03-03-2022 MCV (RBC) [Entitic vol] 91.9 fL 81-99 [facility] Work Phone: Hematocrit Auto (Bld) [Volum e fraction]on 03-03-2022 Hematocrit (Bld) [Volume fraction] 39.6 % 37-47 [facility] Work Phone: Laboratory - Chemistry and C hemistry - challengeon 03-03-2022 ALP [Catalytic activity/Vol] 76 U/L 45-117 [facility] Work Phone: ALT [Catalytic activity/Vol] 29 U/L 13-56 [facility] Work Phone: CO2 [Moles/Vol] 24.0 mmol/L 21.0-32.0 [facility] Work Phone: Globulin (S) [Mass/Vol] 3.5 g/dL 2.2-4.2 [facility] Work Phone: Urea nitrogen/Creatinine [Mass ratio] 22.0 mg/mg 10-20 [facility] Work Phone: Laboratory - Hematology and Cell countson 03-03-2022 Erythrocyte distribution width (RBC) [Entitic vol] 45.0 fL 35.1-43.9 [facility] Work Phone: Erythrocyte distribution width (RBC) [Ratio] 13.1 % 11.6-14.6 [facility] Work Phone: Immature granulocytes/100 WBC (Bld) 0.200 % 0.0-0.9 [facility] Work Phone: Comment on above: IG% - Immature Granu locytes (promyelocytes, myelocytes and metamyelocytes) > 1% indicates that a LEFT SHIFT is Present. MCH (RBC) [Entitic mass] 30.2 pg 27.0-32.0 [facility] Work Phone: Nucleated RBC/100 WBC (Bld) [Ratio] 0 % 0-5 [facility] Work Phone: MCHC Auto (RBC) [Mass/Vol]on 03-03-2022 MCHC (RBC) [Mass/Vol] 32.8 g/dL 32-36 [facility] Work Phone: No Panel Informationon 03-03 Estimated GFR (MDRD) Amer 82 mL/min >60 [facility] Work Phone: Comment on above: GFR Calc Estimated GFR (MDRD) Non-Af Amer 68 mL/min >60 [facility] Work Phone: Comment on above: Non- GFR Calc Platelets bldon 03-03-2022 Platelets (Bld) [#/Vol] 258 10*3/uL 150-450 [facility] Work Phone: Serum or plasma albumin robel urement (mass/volume)on 03-03-2022 Albumin [Mass/Vol] 3.5 g/dL 3.2-5.0 [facility] Work Phone: Serum or plasma albumin/glob ulin mass ratioon 03-03-2022 Albumin/Globulin [Mass ratio] 1.0 {ratio} 0.9-2.4 [facility] Work Phone: Serum or plasma calcium robel urement (mass/volume)on 03-03-2022 Calcium [Mass/Vol] 9.0 mg/dL 8.5-10.1 [facility] Work Phone: Serum or plasma creatinine m easurement (mass/volume)on 03-03-2022 Creatinine [Mass/Vol] 0.91 mg/dL 0.55-1.02 [facility] Work Phone: Comment on above: The validity of the calculated GFR & GFRAA in patients over 70 years has not been determined. Clinical correlation is essential. Serum or plasma urea nitroge n measurement (mass/volume)on 03-03-2022 Urea nitrogen [Mass/Vol] 20 mg/dL 7-18 [facility] Work Phone: Thin prep Papanicolaou smear with manual screeningon 03-03-2022 Thin prep Papanicolaou smear with manual screening 13 U/L 15-37 [facility] Work Phone: Thin prep Papanicolaou smear with manual screening 7 5-15 [facility] Work Phone: Absolute lymphocyte counton 12-06-2021 Lymphocytes Auto (Unsp spec) [#/Vol] 2.87 10*3/uL 0.83-4.51 [facility] Work Phone: Basophil percentageon 2021 Basophils/100 WBC (Bld) 1.0 % 0-1 [facility] Work Phone: Bilirubin [Mass/Vol] 0.50 mg/dL 0.20-1.00 [facility] Work Phone: Comment on above: For patients on eltr ombopag therapy, use of Dimension [place] TBIL is not recommended. Chloride [Moles/Vol] 108 mmol/L 98-107 [facility] Work Phone: Eosinophils/100 WBC (Bld) 2.4 % 0-5 [facility] Work Phone: Glucose [Mass/Vol] 198 mg/dL 74-106 [facility] Work Phone: Comment on above: Fasting Glucose resu lt greater than or equal to 126 mg/dL suggests DIABETES MELLITUS per A.D.A. criteria. Neutrophils (Bld) [#/Vol] 3.3 10*3/uL 2.0-7.7 [facility] Work Phone: Neutrophils/100 WBC (Bld) 47.5 % 47-70 [facility] Work Phone: Potassium [Moles/Vol] 4.1 mmol/L 3.5-5.1 [facility] Work Phone: Protein [Mass/Vol] 6.7 g/dL 6.4-8.2 [facility] Work Phone: Sodium [Moles/Vol] 138 mmol/L 136-145 [facility] Work Phone: WBC (Bld) [#/Vol] 7.0 10*3/uL 4.4-11.0 [facility] Work Phone: Blood erythrocytes count (nu mber/volume)on 12-06-2021 RBC (Bld) [#/Vol] 3.92 10*6/uL 4.2-5.4 [facility] Work Phone: Blood hemoglobin measurement (mass/volume)on 12-06-2021 Hemoglobin (Bld) [Mass/Vol] 11.5 g/dL 12.0-15.0 [facility] Work Phone: Blood lymphocytes/100 leukoc yteson 12-06-2021 Lymphocytes/100 WBC (Bld) 41.2 % 19-41 [facility] Work Phone: Blood monocytes/100 leukocyt eson 12-06-2021 Monocytes/100 WBC (Bld) 7.6 % 0-10 [facility] Work Phone: Blood platelet mean volumeon 12-06-2021 Platelet mean volume (Bld) [Entitic vol] 11.1 fL 6.2-12.0 [facility] Work Phone: Determination of erythrocyte mean corpuscular volume (MCV)on 12-06-2021 MCV (RBC) [Entitic vol] 91.3 fL 81-99 [facility] Work Phone: Hematocrit Auto (Bld) [Volum e fraction]on 12-06-2021 Hematocrit (Bld) [Volume fraction] 35.8 % 37-47 [facility] Work Phone: Laboratory - Chemistry and C hemistry - challengeon 12-06-2021 ALP [Catalytic activity/Vol] 76 U/L 45-117 [facility] Work Phone: ALT [Catalytic activity/Vol] 22 U/L 13-56 [facility] Work Phone: CO2 [Moles/Vol] 23.0 mmol/L 21.0-32.0 [facility] Work Phone: Globulin (S) [Mass/Vol] 3.4 g/dL 2.2-4.2 [facility] Work Phone: Urea nitrogen/Creatinine [Mass ratio] 17.4 mg/mg 10-20 [facility] Work Phone: Laboratory - Hematology and Cell countson 12-06-2021 Erythrocyte distribution width (RBC) [Entitic vol] 43.5 fL 35.1-43.9 [facility] Work Phone: Erythrocyte distribution width (RBC) [Ratio] 13.0 % 11.6-14.6 [facility] Work Phone: Immature granulocytes/100 WBC (Bld) 0.300 % 0.0-0.9 [facility] Work Phone: Comment on above: IG% - Immature Granu locytes (promyelocytes, myelocytes and metamyelocytes) > 1% indicates that a LEFT SHIFT is Present. MCH (RBC) [Entitic mass] 29.3 pg 27.0-32.0 [facility] Work Phone: Nucleated RBC/100 WBC (Bld) [Ratio] 0 % 0-5 [facility] Work Phone: MCHC Auto (RBC) [Mass/Vol]on 12-06-2021 MCHC (RBC) [Mass/Vol] 32.1 g/dL 32-36 [facility] Work Phone: No Panel Informationon 12-06 Estimated GFR (MDRD) Amer 87 mL/min >60 [facility] Work Phone: Comment on above: GFR Calc Estimated GFR (MDRD) Non-Af Amer 72 mL/min >60 [facility] Work Phone: Comment on above: Non- GFR Calc Platelets bldon 12-06-2021 Platelets (Bld) [#/Vol] 258 10*3/uL 150-450 [facility] Work Phone: Serum or plasma albumin robel urement (mass/volume)on 12-06-2021 Albumin [Mass/Vol] 3.3 g/dL 3.2-5.0 [facility] Work Phone: Serum or plasma albumin/glob ulin mass ratioon 12-06-2021 Albumin/Globulin [Mass ratio] 1.0 {ratio} 0.9-2.4 [facility] Work Phone: Serum or plasma calcium robel urement (mass/volume)on 12-06-2021 Calcium [Mass/Vol] 8.5 mg/dL 8.5-10.1 [facility] Work Phone: Serum or plasma creatinine m easurement (mass/volume)on 12-06-2021 Creatinine [Mass/Vol] 0.86 mg/dL 0.55-1.02 [facility] Work Phone: Comment on above: The validity of the calculated GFR & GFRAA in patients over 70 years has not been determined. Clinical correlation is essential. Serum or plasma urea nitroge n measurement (mass/volume)on 12-06-2021 Urea nitrogen [Mass/Vol] 15 mg/dL 7-18 [facility] Work Phone: Thin prep Papanicolaou smear with manual screeningon 12-06-2021 Thin prep Papanicolaou smear with manual screening 13 U/L 15-37 [facility] Work Phone: Thin prep Papanicolaou smear with manual screening 7 5-15 [facility] Work Phone: Absolute lymphocyte counton 08-23-2021 Lymphocytes Auto (Unsp spec) [#/Vol] 3.35 10*3/uL 0.83-4.51 [facility] Work Phone: Basophil percentageon 2021 Basophils/100 WBC (Bld) 0.9 % 0-1 [facility] Work Phone: Bilirubin [Mass/Vol] 0.80 mg/dL 0.20-1.00 [facility] Work Phone: Comment on above: For patients on eltr ombopag therapy, use of Dimension [place] TBIL is not recommended. Chloride [Moles/Vol] 104 mmol/L 98-107 [facility] Work Phone: Cholesterol [Mass/Vol] 231 mg/dL <200 [facility] Work Phone: Comment on above: <200 mg/dL Desirable 200-240 mg/dL Borderline >240 mg/dL High Risk Eosinophils/100 WBC (Bld) 1.3 % 0-5 [facility] Work Phone: Glucose [Mass/Vol] 238 mg/dL 74-106 [facility] Work Phone: Comment on above: Glucose result great er than or equal to 200 mg/dLsuggests DIABETES MELLITUS per A.D.A. criteria. Neutrophils (Bld) [#/Vol] 5.6 10*3/uL 2.0-7.7 [facility] Work Phone: Neutrophils/100 WBC (Bld) 58.0 % 47-70 [facility] Work Phone: Potassium [Moles/Vol] 4.2 mmol/L 3.5-5.1 [facility] Work Phone: Protein [Mass/Vol] 7.3 g/dL 6.4-8.2 [facility] Work Phone: Sodium [Moles/Vol] 135 mmol/L 136-145 [facility] Work Phone: Triglyceride [Mass/Vol] 137 mg/dL [facility] Work Phone: Comment on above: The drugs N-Acetylcy steine and Metamizole may falsely depress this assay.Serum Triglycerides Reference Interval Normal <150 mg/dL Borderline high 150 - 199 mg/dL High 200 - 499 mg/dL Very High > or = 500 mg/dL WBC (Bld) [#/Vol] 9.7 10*3/uL 4.4-11.0 [facility] Work Phone: Blood erythrocytes count (nu mber/volume)on 08-23-2021 RBC (Bld) [#/Vol] 4.46 10*6/uL 4.2-5.4 [facility] Work Phone: Blood hemoglobin measurement (mass/volume)on 08-23-2021 Hemoglobin (Bld) [Mass/Vol] 12.9 g/dL 12.0-15.0 [facility] Work Phone: Blood lymphocytes/100 leukoc yteson 08-23-2021 Lymphocytes/100 WBC (Bld) 34.4 % 19-41 [facility] Work Phone: Blood monocytes/100 leukocyt eson 08-23-2021 Monocytes/100 WBC (Bld) 5.0 % 0-10 [facility] Work Phone: Blood platelet mean volumeon 08-23-2021 Platelet mean volume (Bld) [Entitic vol] 11.4 fL 6.2-12.0 [facility] Work Phone: Determination of erythrocyte mean corpuscular volume (MCV)on 08-23-2021 MCV (RBC) [Entitic vol] 89.9 fL 81-99 [facility] Work Phone: Hematocrit Auto (Bld) [Volum e fraction]on 08-23-2021 Hematocrit (Bld) [Volume fraction] 40.1 % 37-47 [facility] Work Phone: Laboratory - Chemistry and C hemistry - challengeon 08-23-2021 ALP [Catalytic activity/Vol] 94 U/L 45-117 [facility] Work Phone: ALT [Catalytic activity/Vol] 25 U/L 13-56 [facility] Work Phone: CO2 [Moles/Vol] 22.0 mmol/L 21.0-32.0 [facility] Work Phone: Globulin (S) [Mass/Vol] 4.0 g/dL 2.2-4.2 [facility] Work Phone: Urea nitrogen/Creatinine [Mass ratio] 16.2 mg/mg 10-20 [facility] Work Phone: Laboratory - Hematology and Cell countson 08-23-2021 Erythrocyte distribution width (RBC) [Entitic vol] 42.1 fL 35.1-43.9 [facility] Work Phone: Erythrocyte distribution width (RBC) [Ratio] 12.8 % 11.6-14.6 [facility] Work Phone: Immature granulocytes/100 WBC (Bld) 0.400 % 0.0-0.9 [facility] Work Phone: Comment on above: IG% - Immature Granu locytes (promyelocytes, myelocytes and metamyelocytes) > 1% indicates that a LEFT SHIFT is Present. MCH (RBC) [Entitic mass] 28.9 pg 27.0-32.0 [facility] Work Phone: Nucleated RBC/100 WBC (Bld) [Ratio] 0 % 0-5 [facility] Work Phone: HbA1c (Bld) [Mass fraction] 9.50 % <5.7% [facility] Work Phone: MCHC Auto (RBC) [Mass/Vol]on 08-23-2021 MCHC (RBC) [Mass/Vol] 32.2 g/dL 32-36 [facility] Work Phone: No Panel Informationon 08-23 Estimated GFR (MDRD) Amer 75 mL/min >60 [facility] Work Phone: Comment on above: GFR Calc Estimated GFR (MDRD) Non-Af Amer 62 mL/min >60 [facility] Work Phone: Comment on above: Non- GFR Calc Platelets bldon 08-23-2021 Platelets (Bld) [#/Vol] 292 10*3/uL 150-450 [facility] Work Phone: Serum or plasma albumin robel urement (mass/volume)on 08-23-2021 Albumin [Mass/Vol] 3.3 g/dL 3.2-5.0 [facility] Work Phone: Serum or plasma albumin/glob ulin mass ratioon 08-23-2021 Albumin/Globulin [Mass ratio] 0.8 {ratio} 0.9-2.4 [facility] Work Phone: Serum or plasma calcium robel urement (mass/volume)on 08-23-2021 Calcium [Mass/Vol] 8.7 mg/dL 8.5-10.1 [facility] Work Phone: Serum or plasma cholesterol in HDL measurement (mass/volume)on 08-23-2021 Cholesterol in HDL [Mass/Vol] 70 mg/dL [facility] Work Phone: Comment on above: The drugs N-Acetylcy steine and Metamizole may falsely depress this assay. Reference Range HDL <40 mg/dL Low HDL Cholesterol HDL >or= 60 mg/dL High HDL Cholesterol Serum or plasma cholesterol in VLDL measurement (mass/volume)on 08-23-2021 Cholesterol in VLDL [Mass/Vol] 27 mg/dL 5-40 [facility] Work Phone: Serum or plasma creatinine m easurement (mass/volume)on 08-23-2021 Creatinine [Mass/Vol] 0.99 mg/dL 0.55-1.02 [facility] Work Phone: Comment on above: The validity of the calculated GFR & GFRAA in patients over 70 years has not been determined. Clinical correlation is essential. Serum or plasma low density lipoprotein (LDL) cholesterol measurement (mass/volume)on 08-23-2021 Cholesterol in LDL [Mass/Vol] 134 mg/dL 0-130 [facility] Work Phone: Serum or plasma urea nitroge n measurement (mass/volume)on 08-23-2021 Urea nitrogen [Mass/Vol] 16 mg/dL 7-18 [facility] Work Phone: Thin prep Papanicolaou smear with manual screeningon 08-23-2021 Thin prep Papanicolaou smear with manual screening 16 U/L 15-37 [facility] Work Phone: Thin prep Papanicolaou smear with manual screening 9 5-15 [facility] Work Phone: Thin prep Papanicolaou smear with manual screening 46.8 mg/L NO RANGE EST. [facility] Work Phone: Whole blood hemoglobin A1c/t otal hemoglobin ratio (mass fraction)on 08-23-2021 HbA1c (Bld) [Mass fraction] 9.6 % 3.8-5.6 [facility] Work Phone: Comment on above: Normal < 5.7 % Predi abetic 5.7 - 6.4 % Diabetic >or= 6.5 % Please note range changes. Falls Risk Screeningon 08-16 Fall risk assessment a) No falls within the last year [facility] Work Phone: Tobacco use status [facility]PH[facility] b) No [facility] Work Phone: Laboratory - Microbiology an d Antimicrobial susceptibilityon 08-09-2021 S. pyogenes Ag IA Ql (Unsp spec) Negative [facility] Work Phone: No Panel Informationon 08-09 POC SARS CoV-2 Antigen Negative [facility] Work Phone: Final Surgical Pathology Rep danay 01-27-2020 Final Surgical Pathology Report . Pathology Reports Accession: Collected Date/Time: Received Date/Time: Pathologist: [id number] 01/26/2020 08:40 EDT 01/26/2020 14:13 EDT MD EDOUARD DALLAS Final Surgical Pathology Report DIAGNOSIS: COLON, POLYPECTOMY - - SEGMENTS OF POLYPOID COLONIC EPITHELIUM WITH SMALL REACTIVE SUBMUCOSAL LYMPHOID AGGREGATES AND NO ADDITIONAL HISTOPATHOLOGIC CHANGES. COMMENT: [facility] - [id number] CLINICAL INFORMATION: Procedure: COLONOSCOPY WITH BIOPSIES, TATTOOING OF POLYP SITE Preoperative diagnosis: SCREENING Postoperative diagnosis: SCREENING SPECIMEN: PROXIMAL ASCENDING COLON POLYP BIOPSY GROSS DESCRIPTION: Received in formalin, labeled with the patient's name, Case #[id number], and proximal ascending colon polyp multiple merrill tissue fragments ranging from 0.1 to 0.3 cm. TS -1. Dictated by YAEL RICKS MICROSCOPIC DESCRIPTION: Slides reviewed. Electronically Signed by Pathology Report verified by [facility] Electronically signed by EDOUARD DALLAS MD Sign out Date: 01/27/2020 16:10 Performing Lab: [facility], [address] [place] [address] ([place]) Comment on above: Performed By: #### S PFR #### [place] [id number] Vital Signs Date Time Vital Sign Value Performing Clinician Facility 01-13-2025 08:00-0400 Body mass index (BMI) [Ratio] 42.87 kg/m2 April Brooks MD Work Phone: [facility] 01-13-2025 08:00-0400 Body weight 109.77 kg April Brooks MD Work Phone: [facility] 01-13-2025 08:00-0400 Diastolic blood pressure 80 mm[Hg] April Brooks MD Work Phone: [facility] 01-13-2025 08:00-0400 Heart rate 72 /min April Brooks MD Work Phone: [facility] 01-13-2025 08:00-0400 SaO2% (BldA) [Mass fraction] 98 % April Brooks MD Work Phone: [facility] 01-13-2025 08:00-0400 Systolic blood pressure 138 mm[Hg] April Brooks MD Work Phone: [facility] 07-14-2024 08:24-0500 Body mass index (BMI) [Ratio] 42.16 kg/m2 April Brooks MD Work Phone: [facility] 07-14-2024 08:24-0500 Body weight 107.96 kg April Brooks MD Work Phone: [facility] 07-14-2024 08:24-0500 Diastolic blood pressure 82 mm[Hg] April Brooks MD Work Phone: [facility] 07-14-2024 08:24-0500 Heart rate 59 /min April Brooks MD Work Phone: [facility] 07-14-2024 08:24-0500 SaO2% (BldA) [Mass fraction] 100 % April Brooks MD Work Phone: [facility] 07-14-2024 08:24-0500 Systolic blood pressure 142 mm[Hg] April Brooks MD Work Phone: [facility] 05-08-2024 08:19-0400 Body height 160 cm Carly Blanco DO Work Phone: [facility] 05-08-2024 08:19-0400 Body mass index (BMI) [Ratio] 42.62 kg/m2 Carly Blanco DO Work Phone: [facility] 05-08-2024 08:19-0400 Body weight 109.14 kg Carly Blanco DO Work Phone: [facility] 05-08-2024 08:19-0400 Diastolic blood pressure 84 mm[Hg] [facility] 05-08-2024 08:19-0400 Heart rate 63 /min Carly Blanco DO Work Phone: [facility] 05-08-2024 08:19-0400 Respiratory rate 20 /min Carly Blanco DO Work Phone: [facility] 05-08-2024 08:19-0400 SaO2% (BldA) [Mass fraction] 98 % Carly Blanco DO Work Phone: [facility] 05-08-2024 08:19-0400 Systolic blood pressure 132 mm[Hg] Carly Blanco DO Work Phone: [facility] 01-11-2024 08:22-0400 Body height 160 cm April Brooks MD Work Phone: [facility] 01-11-2024 08:22-0400 Body mass index (BMI) [Ratio] 41.59 kg/m2 April Brooks MD Work Phone: [facility] 01-11-2024 08:22-0400 Body weight 106.5 kg April Brooks MD Work Phone: [facility] 01-11-2024 08:22-0400 Diastolic blood pressure 78 mm[Hg] April Brooks MD Work Phone: [facility] 01-11-2024 08:22-0400 Heart rate 73 /min April Brooks MD Work Phone: [facility] 01-11-2024 08:22-0400 SaO2% (BldA) [Mass fraction] 100 % April Brooks MD Work Phone: [facility] 01-11-2024 08:22-0400 Systolic blood pressure 130 mm[Hg] April Brooks MD Work Phone: [facility] 10-25-2023 08:08-0400 Body height 160 cm Carly Narinder DO Work Phone: [facility] 10-25-2023 08:08-0400 Body mass index (BMI) [Ratio] 42.44 kg/m2 Carly Blanco DO Work Phone: [facility] 10-25-2023 08:08-0400 Body weight 108.68 kg Carly Blanco DO Work Phone: [employer] 10-25-2023 08:08-0400 Diastolic blood pressure 92 mm[Hg] Carly Blanco DO Work Phone: [facility] 10-25-2023 08:08-0400 Heart rate 54 /min Carly Blanco DO Work Phone: [facility] 10-25-2023 08:08-0400 SaO2% (BldA) [Mass fraction] 100 % Carly Blanco DO Work Phone: [facility] 10-25-2023 08:08-0400 Systolic blood pressure 165 mm[Hg] Carly Blanco DO Work Phone: [facility] 10-18-2023 08:52-0400 Body mass index (BMI) [Ratio] 42.74 kg/m2 Deborah Mcdonough RD Work Phone: [facility] 10-18-2023 08:52-0400 Body weight 109.[address] Work Phone: [facility] 10-11-2023 08:02-0400 Body height 160 cm April Brooks MD Work Phone: [facility] 10-11-2023 08:02-0400 Body mass index (BMI) [Ratio] 42.3 kg/m2 April Brooks MD Work Phone: [facility] 10-11-2023 08:02-0400 Body weight 108.32 kg April Brooks MD Work Phone: [facility] 10-11-2023 08:02-0400 Diastolic blood pressure 72 mm[Hg] April Brooks MD Work Phone: [facility] 03-14-2024 08:02-0400 Heart rate 62 /min April Brooks MD Work Phone: [facility] 10-11-2023 08:02-0400 SaO2% (BldA) [Mass fraction] 96 % April Brooks MD Work Phone: [facility] 10-11-2023 08:02-0400 Systolic blood pressure 130 mm[Hg] April Brooks MD Work Phone: [facility] 07-17-2023 08:22-0500 Body height 160 cm Carly Blanco DO Work Phone: [facility] 07-17-2023 08:22-0500 Body mass index (BMI) [Ratio] 44.18 kg/m2 Carly Narinder DO Work Phone: [facility] 07-17-2023 08:22-0500 Body weight 113.13 kg Carly Blanco DO Work Phone: [facility] 07-17-2023 08:22-0500 Diastolic blood pressure 79 mm[Hg] Carly Blanco DO Work Phone: [facility] 07-17-2023 08:22-0500 Heart rate 58 /min Carly Blanco DO Work Phone: [facility] 07-17-2023 08:22-0500 SaO2% (BldA) [Mass fraction] 98 % Carly Blanco DO Work Phone: [facility] 07-17-2023 08:22-0500 Systolic blood pressure 117 mm[Hg] Carly Blanco DO Work Phone: [facility] 07-10-2023 08:28-0500 Body height 160 cm April Brooks MD Work Phone: [facility] 07-10-2023 08:28-0500 Body mass index (BMI) [Ratio] 43.63 kg/m2 April Brooks MD Work Phone: [facility] 07-10-2023 08:28-0500 Body weight 111.72 kg April Brooks MD Work Phone: [facility] 07-10-2023 08:28-0500 Diastolic blood pressure 80 mm[Hg] Aprli Brooks MD Work Phone: [facility] 07-10-2023 08:28-0500 Systolic blood pressure 132 mm[Hg] April Brooks MD Work Phone: [facility] 06-28-2023 08:44-0500 Body height 160 cm Rosanne Tahir [employer] Work Phone: [facility] 06-28-2023 08:44-0500 Body mass index (BMI) [Ratio] 44.82 kg/m2 Rosanne Tahir [employer] Work Phone: [facility] 06-28-2023 08:44-0500 Body weight 114.76 kg Rosanne Tahir [employer] Work Phone: [facility] 06-28-2023 08:44-0500 Diastolic blood pressure 80 mm[Hg] Rosanne Tahir [employer] Work Phone: [facility] 06-28-2023 08:44-0500 Heart rate 65 /min Rosanne Tahir [employer] Work Phone: [facility] 06-28-2023 08:44-0500 Respiratory rate 17 /min Rosanne Tahir [employer] Work Phone: [facility] 06-28-2023 08:44-0500 SaO2% (BldA) [Mass fraction] 98 % Rosanne Tahir [employer] Work Phone: [facility] 06-28-2023 08:44-0500 Systolic blood pressure 136 mm[Hg] Rosanne Tahir [employer] Work Phone: [facility] 06-11-2023 07:53-0500 Body mass index (BMI) [Ratio] 45.7 kg/m2 Jan Bonner RD Work Phone: [facility] 06-11-2023 07:53-0500 Body weight 117.[address] Work Phone: [employer] 05-10-2023 08:23-0400 Body height 160 cm Carly Blanco DO Work Phone: [employer] 05-10-2023 08:23-0400 Body mass index (BMI) [Ratio] 48.18 kg/m2 Carly Blanco DO Work Phone: [employer] 05-10-2023 08:23-0400 Body weight 123.38 kg Carly Blanco DO Work Phone: [employer] 05-10-2023 08:23-0400 Diastolic blood pressure 85 mm[Hg] Carly Blanco Work Phone: [employer] 05-10-2023 08:23-0400 Heart rate 65 /min Carly Blanco DO Work Phone: [employer] 05-10-2023 08:23-0400 Systolic blood pressure 177 mm[Hg] Carly Blanco DO Work Phone: [employer] 04-13-2023 07:40-0400 Body temperature 97.5 [degF] Carly Blanco Work Phone: [employer] 04-13-2023 07:40-0400 Diastolic blood pressure 67 mm[Hg] Craly Blanco DO Work Phone: [employer] 04-13-2023 07:40-0400 Heart rate 57 /min Carly Blanco Work Phone: [employer] 04-13-2023 07:40-0400 Respiratory rate 16 /min Carly Blanco DO Work Phone: [employer] 04-13-2023 07:40-0400 SaO2% (BldA) [Mass fraction] 93 % Carly Blanco DO Work Phone: [employer] 04-13-2023 07:40-0400 Systolic blood pressure 146 mm[Hg] Carly Blanco DO Work Phone: [facility] 04-13-2023 03:54-0400 Body mass index (BMI) [Ratio] 52.08 kg/m2 Carly Blanco DO Work Phone: [facility] 04-13-2023 03:54-0400 Body weight 133.36 kg Carly Blanco DO Work Phone: [facility] 04-12-2023 11:23-0400 Body height 160 cm Carly Blanco DO Work Phone: [facility] 03-28-2023 07:55-0400 Body height 160 cm April Brooks MD Work Phone: [facility] 03-28-2023 07:55-0400 Body mass index (BMI) [Ratio] 52.43 kg/m2 April Brooks MD Work Phone: [facility] 03-28-2023 07:55-0400 Body weight 134.26 kg April Brooks MD Work Phone: [facility] 03-28-2023 07:55-0400 Diastolic blood pressure 80 mm[Hg] April Brooks MD Work Phone: [facility] 03-28-2023 07:55-0400 Heart rate 65 /min April Brooks MD Work Phone: [facility] 03-28-2023 07:55-0400 SaO2% (BldA) [Mass fraction] 98 % April Brooks MD Work Phone: [facility] 03-28-2023 07:55-0400 Systolic blood pressure 148 mm[Hg] April Brooks MD Work Phone: [facility] 03-22-2023 11:39-0400 Body height 160 cm Rosanne Tahir [employer] Work Phone: [facility] 03-22-2023 11:39-0400 Body mass index (BMI) [Ratio] 53.14 kg/m2 Rosanne Tahir [employer] Work Phone: [facility] 03-22-2023 11:39-0400 Body weight 136.08 kg Rosanne Tahir [employer] Work Phone: [employer] 03-22-2023 11:39-0400 Diastolic blood pressure 70 mm[Hg] Rosanne Tahir [employer] Work Phone: [employer] 03-22-2023 11:39-0400 Heart rate 79 /min Rosanne Tahir [employer] Work Phone: [facility] 03-22-2023 11:39-0400 Respiratory rate 14 /min Rosanne Tahir [employer] Work Phone: [employer] 03-22-2023 11:39-0400 SaO2% (BldA) [Mass fraction] 97 % Rosanne Tahir [employer] Work Phone: [employer] 03-22-2023 11:39-0400 Systolic blood pressure 128 mm[Hg] Rosanne Tahir [employer] Work Phone: [facility] 02-23-2023 15:47-0400 Body height 160 cm Rosanne Tahir [employer] Work Phone: [facility] 02-23-2023 15:47-0400 Body mass index (BMI) [Ratio] 52.26 kg/m2 Rosanne Tahir [employer] Work Phone: [employer] 02-23-2023 15:47-0400 Body weight 133.81 kg Rosanne Tahir [employer] Work Phone: [employer] 02-23-2023 15:47-0400 Diastolic blood pressure 86 mm[Hg] Rosanne Tahir [employer] Work Phone: [facility] 02-23-2023 15:47-0400 Heart rate 77 /min Rosanne Tahir [employer] Work Phone: [employer] 02-23-2023 15:47-0400 SaO2% (BldA) [Mass fraction] 91 % Rosanne Haro [employer] Work Phone: [facility] 02-23-2023 15:47-0400 Systolic blood pressure 140 mm[Hg] Rosanne Haro [employer] Work Phone: [facility] 12-26-2022 09:28-0400 Body height 160 cm April Brooks MD Work Phone: [facility] 12-26-2022 09:28-0400 Body mass index (BMI) [Ratio] 51.41 kg/m2 April Brooks MD Work Phone: [facility] 12-26-2022 09:28-0400 Body weight 131.63 kg April Brooks MD Work Phone: [facility] 12-26-2022 09:28-0400 Diastolic blood pressure 80 mm[Hg] April Brooks MD Work Phone: [facility] 12-26-2022 09:28-0400 Heart rate 69 /min April Brooks MD Work Phone: [facility] 12-26-2022 09:28-0400 SaO2% (BldA) [Mass fraction] 92 % April Brooks MD Work Phone: [facility] [facility] 12-26-2022 09:28-0400 Systolic blood pressure 130 mm[Hg] April Brooks MD Work Phone: [facility] 12-05-2022 11:06-0400 Body mass index (BMI) [Ratio] 47.86 kg/m2 Jan Bonner RD Work Phone: [facility] 12-05-2022 11:06-0400 Body weight 122.[address] Work Phone: [facility] 10-24-2022 10:06-0400 Body mass index (BMI) [Ratio] 49.95 kg/m2 Jan Bonner RD Work Phone: [facility] 10-24-2022 10:06-0400 Body weight 127.[address] Work Phone: [facility] 10-03-2022 11:04-0500 Body mass index (BMI) [Ratio] 48.89 kg/m2 Jan Boroff RD Work Phone: [facility] 10-03-2022 11:04-0500 Body weight 125.[address] Work Phone: [facility] 09-22-2022 08:11-0500 Body height 160.02 cm April Alyssia Zainabcel Work Phone: [employer] [facility] Work Phone: 09-22-2022 08:11-0500 Body mass index (BMI) [Ratio] 49.87 kg/m2 April Alyssia Zainabcel Work Phone: [employer] [facility] Work Phone: 09-22-2022 08:11-0500 Body surface area Derived from formula 2.24 m2 April Lambcel Work Phone: [employer] [facility] Work Phone: 09-22-2022 08:11-0500 Body weight 127.69 kg April Lambcel Work Phone: [employer] [facility] Work Phone: 09-22-2022 08:11-0500 Diastolic blood pressure 94 mm[Hg] April Cade Stencel Work Phone: [facility] [employer] [facility] Work Phone: 09-22-2022 08:11-0500 Heart rate 58 /min April Cade Stencel Work Phone: [employer] [facility] Work Phone: 09-22-2022 08:11-0500 SaO2% (BldA) [Mass fraction] 98 % April Cade Stencel Work Phone: [facility] Work Phone: 09-22-2022 08:11-0500 Systolic blood pressure 172 mm[Hg] April Lambjoaquín Work Phone: [facility] Work Phone: 09-12-2022 10:54-0500 Body mass index (BMI) [Ratio] 49.42 kg/m2 Jan Bonner RD Work Phone: [employer] 09-12-2022 10:54-0500 Body weight 126.[address] Work Phone: [employer] 09-08-2022 09:06-0500 Diastolic blood pressure 78 mm[Hg] Carly Blanco Work Phone: [employer] 09-08-2022 09:06-0500 Heart rate 68 /min Carly Blanco Work Phone: [employer] 09-08-2022 09:06-0500 Respiratory rate 17 /min Carly Narinder MADISON Work Phone: [employer] 09-08-2022 09:06-0500 SaO2% (BldA) [Mass fraction] 99 % Carly Blanco Work Phone: [employer] 09-08-2022 09:06-0500 Systolic blood pressure 137 mm[Hg] Carly Blanco Work Phone: [employer] 09-08-2022 08:56-0500 Body temperature 97.3 [degF] Carly Blanco Work Phone: [employer] 09-08-2022 07:43-0500 Body height 160 cm Carly Blanco Work Phone: [employer] 09-08-2022 07:43-0500 Body mass index (BMI) [Ratio] 49.95 kg/m2 Carly Blanco DO Work Phone: [employer] 09-08-2022 07:43-0500 Body weight 127.91 kg Carly Blanco DO Work Phone: [employer] 08-24-2022 13:07-0500 Body mass index (BMI) [Ratio] 50.06 kg/m2 Jan Bonner RD Work Phone: [employer] 08-24-2022 13:07-0500 Body weight 128.[address] Work Phone: [employer] 08-24-2022 08:48-0500 Body height 160 cm Carly Blanco DO Work Phone: [employer] 08-24-2022 08:48-0500 Body mass index (BMI) [Ratio] 50.06 kg/m2 Carly Narinder MADISON Work Phone: [employer] 08-24-2022 08:48-0500 Body weight 128.19 kg Carly Narinder MADISON Work Phone: [employer] 08-24-2022 08:48-0500 Diastolic blood pressure 88 mm[Hg] Carly Narinder MADISON Work Phone: [employer] 08-24-2022 08:48-0500 Heart rate 94 /min Carly Blanco DO Work Phone: [employer] 08-24-2022 08:48-0500 Respiratory rate 17 /min Carly Blanco DO Work Phone: [employer] 08-24-2022 08:48-0500 SaO2% (BldA) [Mass fraction] 95 % Carly Narinder MADISON Work Phone: [employer] 08-24-2022 08:48-0500 Systolic blood pressure 130 mm[Hg] Carly Narinder MADISON Work Phone: [employer] 06-27-2022 08:05-0500 Body height 160.02 cm April Brooks Work Phone: [facility] [facility] Work Phone: 06-27-2022 08:05-0500 Body mass index (BMI) [Ratio] 51.58 kg/m2 April Brooks Work Phone: [facility] Work Phone: 06-27-2022 08:05-0500 Body surface area Derived from formula 2.27 m2 April Lambcel Work Phone: [facility] Work Phone: 06-27-2022 08:05-0500 Body weight 132.08 kg April Brooks Work Phone: [facility] Work Phone: 06-27-2022 08:05-0500 Diastolic blood pressure 86 mm[Hg] April Lambcel Work Phone: [facility] Work Phone: 06-27-2022 08:05-0500 Heart rate 66 /min April Brooks Work Phone: [facility] Work Phone: 06-27-2022 08:05-0500 SaO2% (BldA) [Mass fraction] 98 % April Brooks Work Phone: [facility] Work Phone: 06-27-2022 08:05-0500 Systolic blood pressure 140 mm[Hg] April Brooks Work Phone: [facility] Work Phone: 03-14-2022 08:14-0400 Body height 160.02 cm April Brooks Work Phone: [facility] Work Phone: 03-14-2022 08:14-0400 Body mass index (BMI) [Ratio] 53.03 kg/m2 April Lambcel Work Phone: [facility] Work Phone: 03-14-2022 08:14-0400 Body surface area Derived from formula 2.3 m2 April Lambcel Work Phone: [facility] Work Phone: 03-14-2022 08:14-0400 Body weight 135.8 kg April Caed Stencel Work Phone: [facility] Work Phone: 03-14-2022 08:14-0400 Diastolic blood pressure 78 mm[Hg] April D Stencel Work Phone: [facility] Work Phone: 03-14-2022 08:14-0400 Heart rate 58 /min April Cade Stencel Work Phone: [facility] Work Phone: 03-14-2022 08:14-0400 SaO2% (BldA) [Mass fraction] 98 % April Cade Stencel Work Phone: [facility] Work Phone: 03-14-2022 08:14-0400 Systolic blood pressure 134 mm[Hg] April Cade Stencel Work Phone: [facility] Work Phone: 08-16-2021 08:23-0500 Diastolic blood pressure 76 mm[Hg] April D Stencel Work Phone: [facility] Work Phone: 08-16-2021 08:23-0500 Systolic blood pressure 132 mm[Hg] April Cade Stencel Work Phone: [facility] Work Phone: 08-16-2021 08:05-0500 Body height 160.02 cm April Cade Stencel Work Phone: [facility] Work Phone: 08-16-2021 08:05-0500 Body mass index (BMI) [Ratio] 51.76 kg/m2 April Cade Stencel Work Phone: [facility] Work Phone: 08-16-2021 08:05-0500 Body surface area Derived from formula 2.27 m2 April Cade Todd Work Phone: [facility] Work Phone: 08-16-2021 08:05-0500 Body temperature 97.3 [degF] April Alyssia Todd Work Phone: [facility] Work Phone: 08-16-2021 08:05-0500 Body weight 132.54 kg April Alyssia Todd Work Phone: [facility] Work Phone: 08-16-2021 08:05-0500 Diastolic blood pressure 86 mm[Hg] April Alyssia Todd Work Phone: [facility] Work Phone: 08-16-2021 08:05-0500 Heart rate 71 /min April Alyssia Todd Work Phone: [facility] Work Phone: 08-16-2021 08:05-0500 SaO2% (BldA) [Mass fraction] 98 % April Brooks Work Phone: [facility] Work Phone: 08-16-2021 08:05-0500 Systolic blood pressure 142 mm[Hg] April Brooks Work Phone: [facility] Work Phone: 08-09-2021 14:48-0500 Body temperature 99.2 [degF] Dr. April Brooks Work Phone: [facility] Work Phone: 08-09-2021 14:48-0500 Diastolic blood pressure 82 mm[Hg] Dr. April Brooks Work Phone: [facility] Work Phone: 08-09-2021 14:48-0500 Heart rate 94 /min Dr. April Brooks Work Phone: [facility] Work Phone: 08-09-2021 14:48-0500 Respiratory rate 15 /min Dr. April Brooks Work Phone: [facility] Work Phone: 08-09-2021 14:48-0500 SaO2% (BldA) [Mass fraction] 96 % Dr. April Brooks Work Phone: [facility] Work Phone: 08-09-2021 14:48-0500 Systolic blood pressure 120 mm[Hg] Dr. April Brooks Work Phone: [facility] Work Phone: Encounters Encounter Date Encounter Type Care Provider Facility Start: 01-13-2025 End: 01-13-2025 Office outpatient visit 15 minutes April Brooks MD Work Phone: [facility] Comment on above: Mixed hyperlipidemia (Primary Dx); Type 2 diabetes 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, without long-term current use of insulin; Primary insomnia; Rheumatoid arthritis involving multiple sites, unspecified whether rheumatoid factor present (Multi) Start: 01-13-2025 End: 01-13-2025 ambulatory [facility] Start: 09-16-2024 End: 09-16-2024 ambulatory [facility] Facility:[facility] Start: 07-14-2024 End: 07-14-2024 Office outpatient visit 15 minutes April Brooks MD Work Phone: [facility] Comment on above: Type 2 diabetes eber itus without complication, without long- term current use of insulin (Multi) Start: 07-14-2024 End: 07-14-2024 ambulatory [facility] Start: 06-27-2024 End: 06-27-2024 ambulatory [facility] Facility:[facility] Start: 05-08-2024 End: 05-08-2024 Office outpatient visit 15 minutes Carly Blanco DO Work Phone: [facility] Comment on above: S/P laparoscopic sle román gastrectomy (Primary Dx); Weight loss Start: 05-08-2024 [facility] Start: 05-06-2024 [facility] Start: 04-08-2024 End: 04-08-2024 [facility] Start: 01-14-2024 End: 01-14-2024 [facility] Facility:[facility] Start: 01-11-2024 End: 01-11-2024 Office outpatient visit 15 minutes April Brooks MD Work Phone: [facility] Comment on above: Type 2 diabetes eber itus without complication, without long- term current use of insulin (Multi) Start: 12-11-2023 [facility] Start: 10-25-2023 End: 10-25-2023 Office outpatient visit 15 minutes Carly Blanco DO Work Phone: [facility] Comment on above: S/P laparoscopic sle román gastrectomy (Primary Dx); Weight loss Start: 10-25-2023 [facility] Start: 10-22-2023 End: 10-22-2023 ambulatory [facility] Work Phone: Start: 10-22-2023 End: 10-22-2023 Patient encounter procedure [facility] Work Phone: Start: 10-22-2023 End: 10-22-2023 ambulatory [facility] Facility:[facility] Start: 10-18-2023 [facility] Start: 10-18-2023 End: 10-18-2023 Patient encounter procedure Deborah Mcdonough RD Work Phone: [facility] Comment on above: Nutritional counseli ng (Primary Dx); Obesity, morbid, BMI 40.0-49.9 Start: 10-11-2023 End: 10-11-2023 Office outpatient visit 15 minutes April Brooks MD Work Phone: [facility] Comment on above: Type 2 diabetes eber itus without complication, without long- term current use of insulin ([facility]); Rheumatoid arthritis involving multiple sites, unspecified whether rheumatoid factor present ([facility]) Start: 08-07-2023 End: 08-07-2023 Patient encounter procedure [facility] Work Phone: Start: 07-17-2023 ambulatory CARLY BLANCO [facility] Start: 07-17-2023 End: 07-17-2023 Office outpatient visit 15 minutes Carly Blanco DO Work Phone: [facility] Comment on above: S/P gastric sleeve p rocedure (Primary Dx); Weight loss Start: 07-10-2023 End: 07-10-2023 Office outpatient visit 25 minutes April Brooks MD Work Phone: [facility] Comment on above: Type 2 diabetes eber itus without complication, without long- term current use of insulin ([facility]) (Primary Dx); Mixed hyperlipidemia Start: 07-06-2023 End: 07-06-2023 ambulatory [facility] Work Phone: Start: 07-06-2023 End: 07-06-2023 Patient encounter procedure [facility] Work Phone: Start: 06-28-2023 End: 06-28-2023 Office outpatient visit 25 minutes Rosanne Haro BILL HIKER-METAL DRESSER Work Phone: [facility] Pulmonary Disease [facility] Comment on above: Obstructive sleep ap jeniffer (Primary Dx); Sleep related hypoxia; Overweight; Encounter for review of form with patient; Excessive weight loss Start: 06-28-2023 ambulatory ROSANNE HARO [facility] Start: 06-11-2023 ambulatory JAN BONNER [facility] Start: 06-11-2023 End: 06-11-2023 Subsequent hospital visit by physician Jan Bonner RD Work Phone: [facility] Start: 05-10-2023 End: 05-10-2023 Postop follow up visit related to original px Carly Morin Narinder DO Work Phone: [facility] Comment on above: S/P gastric sleeve p rocedure (Primary Dx) Start: 05-09-2023 End: 05-09-2023 ambulatory [facility] Work Phone: Start: 05-09-2023 End: 05-09-2023 Patient encounter procedure [facility] Work Phone: Start: 04-11-2023 End: 04-13-2023 Evaluation and management of inpatient Carly Mikel Narinder DO Work Phone: [facility] Comment on above: Type 2 diabetes eber itus with hyperglycemia Start: 04-11-2023 End: 04-13-2023 Patient encounter status Carly Mikel Narinder MADISON Work Phone: [facility] Start: 04-03-2023 End: 04-03-2023 ambulatory [facility] Work Phone: Start: 04-03-2023 End: 04-03-2023 Patient encounter procedure [facility] Work Phone: Start: 03-28-2023 End: 03-28-2023 Office outpatient visit 25 minutes April Brooks MD Work Phone: [facility] Comment on above: Primary insomnia (Pr imary Dx); Type 2 diabetes 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, without long-term current use of insulin ([facility]); Rheumatoid arthritis involving multiple sites, unspecified whether rheumatoid factor present ([facility]); Morbid obesity with body mass index of 50 or higher ([facility]); Mixed hyperlipidemia Start: 03-27-2023 ambulatory APRIL BROOKS [facility] Start: 03-22-2023 End: 03-22-2023 Office outpatient visit 25 minutes Rosanne Haro BILL HIKER-METAL DRESSER Work Phone: [facility] Pulmonary Disease [facility] Comment on above: Obstructive sleep ap jeniffer (Primary Dx); Sleep related hypoxia; Overweight; Encounter for review of form with patient Start: 02-23-2023 End: 02-23-2023 Office outpatient visit 25 minutes Rosanne Maloneion BILL HIKER-METAL DRESSER Work Phone: [facility] Pul[facility] Comment on above: Obstructive sleep ap jeniffer (Primary Dx); Sleep related hypoxia; Overweight; Encounter to discuss test results; Encounter for review of form with patient Start: 02-09-2023 End: 02-09-2023 ambulatory [facility] Work Phone: Start: 02-09-2023 End: 02-09-2023 Patient encounter procedure [facility] Work Phone: Start: 12-26-2022 End: 12-26-2022 Office outpatient visit 25 minutes April Brooks MD Work Phone: [facility] Comment on above: Type 2 diabetes eber itus without complication, without long- term current use of insulin ([facility]) (Primary Dx); Rheumatoid arthritis involving multiple sites, unspecified whether rheumatoid factor present (CMS/HCC); Morbid obesity with body mass index of 50 or higher (CMS/HCC) Start: 12-21-2022 End: 12-21-2022 ambulatory [facility] Work Phone: Start: 12-21-2022 End: 12-21-2022 Patient encounter procedure [facility] Start: 12-05-2022 End: 12-05-2022 Subsequent hospital visit by physician Jan Bonner RD Work Phone: [facility] Start: 11-20-2022 End: 11-20-2022 ambulatory [facility] Work Phone: Start: 11-20-2022 End: 11-20-2022 Patient encounter procedure [facility] Start: 11-07-2022 End: 11-13-2022 Clinical Support Encounter Rosanne Maloneion BILL HIKER-METAL DRESSER Work Phone: [facility] Comment on above: Sleep apnea, unspeci fied type (Primary Dx) Start: 10-24-2022 End: 10-24-2022 Subsequent hospital visit by physician Jan Bonner RD Work Phone: [facility] Start: 10-09-2022 End: 10-09-2022 Patient encounter procedure Abhishek Quiroz PsyD Work Phone: [facility] Comment on above: Eating disorder, uns pecified type (Primary Dx) Start: 10-03-2022 End: 10-03-2022 Subsequent hospital visit by physician Jan Bonner RD Work Phone: [facility] Start: 09-22-2022 Office outpatient vi sit 25 minutes April Brooks Work Phone: [facility] Work Phone: Start: 09-22-[address] April Kumari Facility:[id number] Start: 09-21-2022 End: 09-21-2022 Subsequent hospital visit by physician Carly Blanco DO Work Phone: [facility] Amortization Clerk Comment on above: Arrived Start: 09-12-2022 End: 09-12-2022 Subsequent hospital visit by physician Jan Bonner RD Work Phone: [facility] Start: 09-08-2022 End: 09-08-2022 Subsequent hospital visit by physician Carly Blanco DO Work Phone: [facility] Start: 08-29-2022 End: 08-29-2022 Patient encounter procedure [facility] Start: 08-24-2022 End: 08-24-2022 Subsequent hospital visit by physician Jan Bonner RD Work Phone: [facility] Start: 08-24-2022 End: 08-24-2022 Office outpatient new 60 minutes Carly Blanco DO Work Phone: [facility] Comment on above: Gastroesophageal ref lux disease, unspecified whether esophagitis present (Primary Dx); Morbid obesity with BMI of 50.0-59.9, adult; Type 2 diabetes 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, 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 April Kumari Facility:[id number] Start: 06-09-2022 End: 06-09-2022 ambulatory [facility] Work Phone: Start: 06-09-2022 End: 06-09-2022 Patient encounter procedure [facility] Start: 03-14-[address] April Kumari Facility:[id number] Start: 03-14-2022 Office outpatient vi sit 25 minutes April Brooks Work Phone: [facility] Work Phone: Start: 03-03-2022 End: 03-03-2022 Patient encounter procedure [facility] Start: 03-02-2022 Chart Update April escalante Work Phone: [facility] Work Phone: Start: 01-26-2022 AUDIT April escalante Work Phone: [facility] Work Phone: Start: 12-06-2021 End: 12-06-2021 Patient encounter procedure [facility] Start: 11-21-2021 End: 11-21-[address] [facility] Start: 08-23-2021 End: 08-23-[address] April Brooks Work Phone: [facility] Start: 08-16-2021 Office outpatient vi sit 25 minutes April Brooks Work Phone: [facility] Work Phone: Start: 08-09-2021 End: 08-09-[address] April Brooks Work Phone: [facility] Start: 06-11-2018 End: 06-12-2018 Patient encounter procedure April Brooks Facility:[facility] Start: 03-06-2018 End: 03-07-2018 Patient encounter procedure April Brooks Facility:[facility] Start: 10-29-2017 End: 10-30-2017 Patient encounter procedure April Brooks Facility:[facility] Procedures Date Procedure Procedure Detail Performing Clinician Start: 01-14-2024 Lipid 1996 panel - S vickie or Plasma April Brooks MD Work Phone: Start: 04-13-2023 Gluc bld gluc mntr d ev cleared fda spec home use Carly Blanco DO Work Phone: Start: 04-13-2023 Basic metabolic pane l calcium total Carly Blanco DO Work Phone: Start: 04-13-2023 Complete blood count with white cell differential, automated Carly Blanco DO Work Phone: Start: 04-12-2023 Gluc bld gluc mntr d ev cleared fda spec home use Carly Blanco DO Work Phone: Start: 04-12-2023 Gluc bld gluc mntr d ev cleared fda spec home use Carly Blanco DO Work Phone: Start: 04-12-2023 Gluc bld gluc mntr d ev cleared fda spec home use Carly Blanco DO Work Phone: Start: 04-12-2023 Blood count complete automated Carly Blanco DO Work Phone: Start: 04-12-2023 Gluc bld gluc mntr d ev cleared fda spec home use Carly Blanco DO Work Phone: Start: 04-12-2023 End: 04-12-2023 Basic metabolic panel calcium total Carly Blanco DO Work Phone: Start: 04-11-2023 Gluc bld gluc mntr d ev cleared fda spec home use Carly Blanco DO Work Phone: Start: 04-11-2023 Gluc bld gluc mntr d ev cleared fda spec home use Carly Blanco DO Work Phone: Start: 04-11-2023 Basic metabolic pane l calcium total Carly Blanco DO Work Phone: Start: 04-11-2023 SURGICAL PATHOLOGY REQUEST Carly Blanco DO Work Phone: Start: 04-11-2023 End: 04-11-2023 Laps gstrc rstrictiv px longitudinal gastrectomy Carly Blnaco DO Work Phone: Start: 04-11-2023 Basic metabolic pane l calcium total Carly Blanco DO Work Phone: Start: 04-11-2023 Blood group typing, RH phenotyping Binu Sarah MD Work Phone: Start: 04-03-2023 End: 04-03-2023 Screening mammography Start: 09-21-2022 Ecg routine ecg w/le ast 12 lds trcg only w/o i&r Carly Blanco DO Work Phone: Start: 09-21-2022 Radiologic exam ches t 2 views Carly Blanco DO Work Phone: Start: 09-21-2022 Lipid 1996 panel - S vickie or Plasma Carly Blanco DO Work Phone: Start: 09-08-2022 DIAGNOSTIC UPPER ENDOSCOPY Carly Mikel Blanco DO Work Phone: Start: 11-21-2021 End: 11-21-[address] April tinajero Work Phone: Start: 02-11-2020 Colonoscopy April Swift MD Work Phone: Start: 02-11-2020 Colonoscopy April Brooks Work Phone: Arthroscopy of ankle April Stencel Dilation and curettage Dharmesh boland Stencel Osteotomy April Stencel Repair of meniscus April Thompson tencel Tonsillectomy and adenoidectomy April Stencel Plan of Treatment Date Care Activity Detail Author Start: 02-10-2030 Screening for malign ant neoplasm of colon [facility] Start: 09-21-2027 [facility] Start: 05-07-2025 End: 05-07-2025 Patient encounter procedure 05/07/2025 8:45 AM EDT Office Visit [facility] [address] [place] [address] Carly Blanco, DO [address] [place] [address] [facility] Start: 03-30-2025 Influenza vaccination Influenz a Vaccine (Season Ended) [facility] Start: 01-13-2025 End: 01-13-2026 CBC panel - Blood by Automated count CBC Lab Routine Type 2 diabetes 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, without long-term current use of insulin Mixed hyperlipidemia Expected: 01/13/2025 (Approximate), Expires: 01/13/2026 [facility] Work Phone: Comment on above: Expected: 01/13/2025 (Approximate), Expires: 01/13/2026 Start: 01-13-2025 End: 01-13-2026 Comprehensive metabolic 2000 panel - Serum or Plasma Comprehensive Metabolic Panel Lab Routine Type 2 diabetes 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, without long-term current use of insulin Mixed hyperlipidemia Expected: 01/13/2025 (Approximate), Expires: 01/13/2026 [facility] Service Area Work Phone: Comment on above: Expected: 01/13/2025 (Approximate), Expires: 01/13/2026 Start: 01-13-2025 End: 01-13-2026 Hemoglobin A1c/Hemoglobin.total in Blood Hemoglobin A1C Lab Routine Type 2 diabetes 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, without long-term current use of insulin Expected: 01/13/2025 (Approximate), Expires: 01/13/2026 [facility] Work Phone: Comment on above: Expected: 01/13/2025 (Approximate), Expires: 01/13/2026 Start: 01-13-2025 End: 01-13-2026 Lipid 1996 panel - Serum or Plasma Lipid Panel Lab Routine Type 2 diabetes 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, without long-term current use of insulin Mixed hyperlipidemia Expected: 01/13/2025 (Approximate), Expires: 01/13/2026 [facility] Work Phone: Comment on above: Expected: 01/13/2025 (Approximate), Expires: 01/13/2026 Start: 01-13-2025 Lipid panel Lipid Panel [facility] Start: 01-13-2025 End: 01-13-2026 Microalbumin/Creatinine [Mass Ratio] in Urine Albumin-Creatinine Ratio, Urine Random Lab Routine Type 2 diabetes 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, without long-term current use of insulin Expected: 01/13/2025 (Approximate), Expires: 01/13/2026 [facility] Work Phone: Comment on above: Expected: 01/13/2025 (Approximate), Expires: 01/13/2026 Start: 01-13-2025 End: 01-13-2025 Patient encounter procedure 01/13/2025 8:40 AM EDT Office Visit [place] [address] [phone] April Brooks MD [address] [address] [facility] Start: 2024 RSV High Risk: (Elde rly (60+) or Population) (1 - Risk 60-74 years 1-dose series) RSV High Risk: (Elderly (60+) or Population) (1 - Risk 60-74 years 1-dose series) [facility] Start: 07-14-2024 End: 07-14-2025 Hemoglobin A1c/Hemoglobin.total in Blood Hemoglobin A1C Lab Routine Type 2 diabetes 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, without long-term current use of insulin (Multi) Expected: 07/14/2024 (Approximate), Expires: 07/14/2025 [facility] Service Area Work Phone: Comment on above: Expected: 07/14/2024 (Approximate), Expires: 07/14/2025 Start: 07-14-2024 End: 07-14-2024 Patient encounter procedure 07/14/2024 8:20 AM EST Office Visit [facility] [address] [place] [address] April Brooks MD [address] [place] [address] [facility] Start: 05-08-2024 End: 05-08-2025 B12/folate level B12 & FOLATE Lab Routine S/P laparoscopic sleeve gastrectomy Weight loss Expected: 05/08/2024, Expires: 05/08/2025 [facility] Comment on above: Expected: 05/08/2024 , Expires: 05/08/2025 Start: 05-08-2024 End: 05-08-2025 Complete blood count with white cell differential, automated CBC, EDIF, PLATELET Lab Routine S/P laparoscopic sleeve gastrectomy Weight loss Expected: 05/08/2024, Expires: 05/08/2025 [facility] Comment on above: Expected: 05/08/2024 , Expires: 05/08/2025 Start: 05-08-2024 End: 05-08-2025 Iron [Mass/volume] in Serum or Plasma IRON Lab Routine S/P laparoscopic sleeve gastrectomy Weight loss Expected: 05/08/2024, Expires: 05/08/2025 [facility] Comment on above: Expected: 05/08/2024 , Expires: 05/08/2025 Start: 05-08-2024 End: 05-08-2025 VITAMIN A VITAMIN A Lab Routine S/P laparoscopic sleeve gastrectomy Weight loss Expected: 05/08/2024, Expires: 05/08/2025 [facility] Comment on above: Expected: 05/08/2024 , Expires: 05/08/2025 Start: 05-08-2024 End: 05-08-2025 VITAMIN B1 VITAMIN B1 Lab Routine S/P laparoscopic sleeve gastrectomy Weight loss Expected: 05/08/2024, Expires: 05/08/2025 [facility] Comment on above: Expected: 05/08/2024 , Expires: 05/08/2025 Start: 05-08-2024 End: 05-08-2025 VITAMIN D (25-HYDROXY,TOTAL) VITAMIN D (25-HYDROXY,TOTAL) Lab Routine S/P laparoscopic sleeve gastrectomy Weight loss Expected: 05/08/2024, Expires: 05/08/2025 [facility] Comment on above: Expected: 05/08/2024 , Expires: 05/08/2025 Start: 05-08-2024 End: 05-08-2025 VITAMIN E VITAMIN E Lab Routine S/P laparoscopic sleeve gastrectomy Weight loss Expected: 05/08/2024, Expires: 05/08/2025 [facility] Comment on above: Expected: 05/08/2024 , Expires: 05/08/2025 Start: 04-15-2024 Hemoglobin A1c measurement Diabetes: Hemoglobin A1C [facility] Start: 04-10-2024 End: 04-10-2024 Patient encounter procedure 04/10/2024 8:45 AM EDT Office Visit [facility] [address] [place] [phone] Carly Blanco, DO [address] [place] [address] [facility] Start: 04-03-2024 Screening for malign ant neoplasm of breast Mammogram [facility] Start: 03-30-2024 COVID-19 VACCINE ( season) COVID-19 VACCINE () [facility] Start: 03-30-2024 COVID-19 Vaccine () COVID-19 Vaccine () [facility] Start: 03-30-[address] Influenza [address] [facility] Start: 01-22-2024 Hemoglobin A1c measurement Diabetes: Hemoglobin A1C [facility] Start: 01-11-2024 End: 01-10-2025 Hemoglobin A1c/Hemoglobin.total in Blood Hemoglobin A1C Lab Routine Type 2 diabetes 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, without long-term current use of insulin (Multi) Expected: 01/11/2024 (Approximate), Expires: 01/10/2025 [facility] Service Area Work Phone: Comment on above: Expected: 01/11/2024 (Approximate), Expires: 01/10/2025 Start: 01-11-2024 End: 01-10-2025 Lipid 1996 panel - Serum or Plasma Lipid Panel Lab Routine Type 2 diabetes 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, without long-term current use of insulin (Multi) Expected: 01/11/2024 (Approximate), Expires: 01/10/2025 [facility] Work Phone: Comment on above: Expected: 01/11/2024 (Approximate), Expires: 01/10/2025 Start: 01-11-2024 End: 01-11-2024 Patient encounter procedure 01/11/2024 9:00 AM EDT Office Visit [facility] [address] [place] [phone] April Brooks MD [address] [place] [phone] [facility] Start: 12-11-2023 End: 12-11-2023 Telemedicine consultation with patient 12/11/2023 9:00 AM EDT Telemedicine [facility] [address] [place] [address] [place] [phone] Deborah Mcdonough, RD [address] [place] [address] [facility] Start: 11-06-2023 Hemoglobin A1c measurement Diabetes: Hemoglobin A1C [facility] Start: 10-25-2023 End: 10-24-2024 B12/folate level B12 & FOLATE Lab Routine S/P laparoscopic sleeve gastrectomy Weight loss Expected: 10/25/2023, Expires: 10/24/2024 [facility] Comment on above: Expected: 10/25/2023 , Expires: 10/24/2024 Start: 10-25-2023 End: 10-24-2024 Complete blood count with white cell differential, automated CBC, EDIF, PLATELET Lab Routine S/P laparoscopic sleeve gastrectomy Weight loss Expected: 10/25/2023, Expires: 10/24/2024 [facility] Comment on above: Expected: 10/25/2023 , Expires: 10/24/2024 Start: 10-25-2023 End: 10-24-2024 Comprehensive metabolic 2000 panel - Serum or Plasma COMPREHENSIVE METABOLIC PANEL Lab Routine S/P laparoscopic sleeve gastrectomy Weight loss Expected: 10/25/2023, Expires: 10/24/2024 [facility] Comment on above: Expected: 10/25/2023 , Expires: 10/24/2024 Start: 10-25-2023 End: 10-24-2024 Iron [Mass/volume] in Serum or Plasma IRON Lab Routine S/P laparoscopic sleeve gastrectomy Weight loss Expected: 10/25/2023, Expires: 10/24/2024 [facility] Comment on above: Expected: 10/25/2023 , Expires: 10/24/2024 Start: 10-25-2023 End: 10-24-2024 VITAMIN A VITAMIN A Lab Routine S/P laparoscopic sleeve gastrectomy Weight loss Expected: 10/25/2023, Expires: 10/24/2024 [facility] Comment on above: Expected: 10/25/2023 , Expires: 10/24/2024 Start: 10-25-2023 End: 10-24-2024 VITAMIN B1 VITAMIN B1 Lab Routine S/P laparoscopic sleeve gastrectomy Weight loss Expected: 10/25/2023, Expires: 10/24/2024 [facility] Comment on above: Expected: 10/25/2023 , Expires: 10/24/2024 Start: 10-25-2023 End: 10-24-2024 VITAMIN D (25-HYDROXY,TOTAL) VITAMIN D (25-HYDROXY,TOTAL) Lab Routine S/P laparoscopic sleeve gastrectomy Weight loss Expected: 10/25/2023, Expires: 10/24/2024 [facility] Comment on above: Expected: 10/25/2023 , Expires: 10/24/2024 Start: 10-25-2023 End: 10-24-2024 VITAMIN E VITAMIN E Lab Routine S/P laparoscopic sleeve gastrectomy Weight loss Expected: 10/25/2023, Expires: 10/24/2024 [facility] Comment on above: Expected: 10/25/2023 , Expires: 10/24/2024 Start: 10-25-2023 End: 10-25-2023 Patient encounter procedure 10/25/2023 8:30 AM EDT Office Visit [place] [phone] [place] [phone] Carly Blanco, DO [address] [place] [address] [facility] Start: 10-11-2023 End: 10-10-2024 Hemoglobin A1c/Hemoglobin.total in Blood Hemoglobin A1C Lab Routine Type 2 diabetes 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, without long-term current use of insulin ([facility]) Expected: 10/11/2023 (Approximate), Expires: 10/10/2024 [facility] Service Area Work Phone: Comment on above: Expected: 10/11/2023 (Approximate), Expires: 10/10/2024 Start: 10-11-2023 End: 10-11-2023 Patient encounter procedure 10/11/2023 8:20 AM EDT Office Visit [facility] [address] [place] [address] April Brooks MD [address] [place] [address] [facility] Start: 10-02-2023 End: 10-02-2023 Patient encounter procedure 10/02/2023 8:00 AM EST Appointment [facility] Nutrition and Dietetics [address] [place] [phone] Jan Bonner, RD [address] [place] [address] [facility] Start: 09-27-2023 Hemoglobin A1c measurement HBA1C TEST [facility] Start: 02-23-2024 Lipid panel LIPIDS [facility] Start: 08-09-2023 End: 08-09-2023 Patient encounter procedure 08/09/2023 8:30 AM EST [facility] [address] [place] [phone] Carly Blanco, DO [address] [place] [address] [facility] Start: 07-17-2023 End: 07-17-2024 VITAMIN A [facility] Comment on above: Expected: 07/17/2023 , Expires: 07/17/2024 Start: 07-17-2023 End: 07-17-2024 VITAMIN B1 [facility] Comment on above: Expected: 07/17/2023 , Expires: 07/17/2024 Start: 07-17-2023 End: 07-17-2024 VITAMIN E [facility] Comment on above: Expected: 07/17/2023 , Expires: 07/17/2024 Start: 07-17-2023 End: 07-17-2023 Patient encounter procedure [facility] Start: 07-10-2023 End: 07-10-2024 Hemoglobin A1c/Hemoglobin.total in Blood Hemoglobin A1C Lab Routine Type 2 diabetes 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, without long-term current use of insulin ([facility]) Expected: 07/10/2023 (Approximate), Expires: 07/10/2024 [facility] Service Area Work Phone: Comment on above: Expected: 07/10/2023 (Approximate), Expires: 07/10/2024 Start: 07-10-2023 End: 07-10-2023 Patient encounter procedure 07/10/2023 8:20 AM EST Office Visit [facility] [address] [place] [address] April Brooks MD [address] [place] [address] [facility] Start: 06-28-2023 End: 06-28-2023 Patient encounter procedure [facility] Start: 06-27-2023 Hemoglobin A1c measurement Diabetes: Hemoglobin A1C [facility] Start: 04-26-2023 End: 04-26-2023 Patient encounter procedure 04/26/2023 8:30 AM EDT Office Visit [facility] [address] [place] [address] Carly Blanco, DO [address] [place] [address] [facility] Start: 03-30-2023 COVID-19 VACCINE ( season) COVID-19 VACCINE () [facility] Start: 03-30-2023 Influenza vaccination [facility] Start: 03-28-2023 End: 03-28-2024 Hemoglobin A1c/Hemoglobin.total in Blood Hemoglobin A1C Lab Routine Type 2 diabetes 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, without long-term current use of insulin ([facility]) Expected: 03/28/2023 (Approximate), Expires: 03/28/2024 [facility] Service Area Work Phone: Comment on above: Expected: 03/28/2023 (Approximate), Expires: 03/28/2024 Start: 03-28-2023 End: 03-28-2023 Patient encounter procedure 03/28/2023 8:00 AM EDT Office Visit [facility] [address] [place] [phone] April Brooks MD [address] [place] [address] [facility] Start: 03-22-2023 End: 03-22-2023 Patient encounter procedure 03/22/2023 11:45 AM EDT Office Visit [facility] [address] [place] [address] Rosanne Haro, BILL HIKER-METAL DRESSER [address] [facility] 1[address] [place] [address] [facility] Start: 03-21-2023 Hemoglobin A1c measurement HBA1C TEST [facility] Start: 01-25-2023 End: 01-25-2023 Patient encounter procedure 01/25/2023 Office Visit Pulmonary Disease Tania Harolincoln Cade, BILL HIKER-METAL DRESSER [address] [place] [address] [facility] Start: 12-15-2022 End: 12-15-2022 Patient encounter procedure 12/15/2022 Office Visit Pulmonary Disease TahirRosanne, BILL HIKER-METAL DRESSER [address] [place] [address] [facility] Start: 12-05-2022 End: 12-05-2022 Patient encounter procedure 12/05/2022 Office Visit Pulmonary Disease TahirRosanne pryor, BILL HIKER-METAL DRESSER [address] [place] [address] [facility] Start: 11-21-2022 Screening for malign ant neoplasm of breast Mammogram [facility] Start: 11-14-2022 End: 11-14-2022 Patient encounter procedure 11/14/2022 Appointment Nutrition and Dietetics Jan Bonner, DONNIE [address] [place] [address] [facility] Start: 11-07-2022 End: 11-07-2022 Clinical Support Encounter 11/07/2022 Clinical Support Encounter Sleep Medicine [facility] Start: 10-24-2022 End: 10-24-2022 Patient encounter procedure 10/24/2022 Appointment Nutrition and DietJan Baum, DONNIE [address] [place] [address] [facility] Start: 10-09-2022 End: 10-09-2022 Patient encounter procedure 10/09/2022 Office Visit Psychology Abhishek uQiroz, PsyD [address] [place] [phone] [facility] Start: 10-03-2022 End: 10-03-2022 Patient encounter procedure 10/03/2022 Appointment Nutrition and Dietetics Jan Bonner, RD [address] [place] [address] [facility] Start: 10-02-2022 End: 10-02-2022 Patient encounter procedure 10/02/2022 Office Visit Psychology Abhishek Quiroz, PsyD [address] [place] [phone] [facility] Start: 09-22-2022 EPV, Provider: April Brooks, Status: Pen, Time: 8:20 AM EPV, Provider: April Brooks, Status: Pen, Time: 8:20 AM [facility] Work Phone: Start: 09-21-2022 End: 09-21-2022 Patient encounter procedure 09/21/2022 Office Visit Psychology Abhishek Quirzo, PsyD [address] [place] [phone] [facility] Start: 09-14-2022 End: 09-14-2022 Patient encounter procedure 09/14/2022 Office Visit Pulmonary Disease Rosanne Haro, BILL HIKER-METAL DRESSER [address] [facility] 1[address] [place] [phone] [facility] Start: 09-11-2022 End: 09-11-2022 Patient encounter procedure 09/11/2022 Appointment Nutrition and Dietetics Jan Bonner, DONNIE [address] [place] [address] [facility] Start: 09-08-2022 End: 09-08-2022 Patient encounter procedure 09/08/2022 Appointment Endoscopy Carly Blanco, DO [address] [place] [address] [facility] Start: 08-24-2022 End: 08-24-2023 B12/folate level B12 & FOLATE Lab Routine Morbid obesity with BMI of 50.0-59.9, adult 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 2 diabetes 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, 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 Gastroesophageal reflux disease, unspecified whether esophagitis present Hypersomnolence Expected: 08/24/2022, Expires: 08/24/2023 [facility] Comment on above: Expected: 08/24/2022 , Expires: 08/24/2023 Start: 08-24-2022 End: 08-24-2023 Complete blood count with white cell differential, automated CBC, EDIF, PLATELET Lab Routine Morbid obesity with BMI of 50.0-59.9, adult Type 2 diabetes 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, unspecified whether penitentiary insulin use Gastroesophageal reflux disease, unspecified whether esophagitis present Hypersomnolence Expected: 08/24/2022, Expires: 08/24/2023 [facility] [employer] [facility] Comment on above: Expected: 08/24/2022 , Expires: 08/24/2023 Start: 08-24-2022 End: 08-24-2023 Comprehensive metabolic 2000 panel - Serum or Plasma COMPREHENSIVE METABOLIC PANEL Lab Routine Morbid obesity with BMI of 50.0-59.9, adult Type 2 diabetes 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, 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 Gastroesophageal reflux disease, unspecified whether esophagitis present Hypersomnolence Expected: 08/24/2022, Expires: 08/24/2023 [facility] [employer] [facility] Comment on above: Expected: 08/24/2022 , Expires: 08/24/2023 Start: 08-24-2022 End: 08-24-2023 DIAGNOSTIC UPPER ENDOSCOPY DIAGNOSTIC UPPER ENDOSCOPY GI/Bronch Routine Morbid obesity with BMI of 50.0-59.9, adult Type 2 diabetes 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, 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 Gastroesophageal reflux disease, unspecified whether esophagitis present Hypersomnolence Expected: 08/24/2022, Expires: 08/24/2023 [facility] Comment on above: Expected: 08/24/2022 , Expires: 08/24/2023 Start: 08-24-2022 End: 08-24-2023 Hemoglobin A1c/Hemoglobin.total in Blood HEMOGLOBIN A1C Lab Routine Morbid obesity with BMI of 50.0-59.9, adult Type 2 diabetes 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, 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 Gastroesophageal reflux disease, unspecified whether esophagitis present Hypersomnolence Expected: 08/24/2022, Expires: 08/24/2023 [facility] Comment on above: Expected: 08/24/2022 , Expires: 08/24/2023 Start: 08-24-2022 End: 08-24-2023 Iron [Mass/volume] in Serum or Plasma IRON Lab Routine Morbid obesity with BMI of 50.0-59.9, adult Type 2 diabetes 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, 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 Gastroesophageal reflux disease, unspecified whether esophagitis present Hypersomnolence Expected: 08/24/2022, Expires: 08/24/2023 [facility] Comment on above: Expected: 08/24/2022 , Expires: 08/24/2023 Start: 08-24-2022 End: 08-24-2023 LIPID PANEL W CALCULATED LDL LIPID PANEL W CALCULATED LDL Lab Routine Morbid obesity with BMI of 50.0-59.9, adult Type 2 diabetes 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, 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 Gastroesophageal reflux disease, unspecified whether esophagitis present Hypersomnolence Expected: 08/24/2022, Expires: 08/24/2023 [facility] Comment on above: Expected: 08/24/2022 , Expires: 08/24/2023 Start: 08-24-2022 End: 08-24-2023 Standard ECG ECG ECG Routine Morbid obesity with BMI of 50.0-59.9, adult Type 2 diabetes 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, 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 Gastroesophageal reflux disease, unspecified whether esophagitis present Hypersomnolence Expected: 08/24/2022, Expires: 08/24/2023 [facility] Comment on above: Expected: 08/24/2022 , Expires: 08/24/2023 Start: 08-24-2022 End: 08-24-2023 Thyrotropin [Units/volume] in Serum or Plasma TSH Lab Routine Morbid obesity with BMI of 50.0-59.9, adult Type 2 diabetes 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, 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 Gastroesophageal reflux disease, unspecified whether esophagitis present Hypersomnolence Expected: 08/24/2022, Expires: 08/24/2023 [facility] Comment on above: Expected: 08/24/2022 , Expires: 08/24/2023 Start: 08-24-2022 End: 08-24-2023 Thyroxine (T4) free [Mass/volume] in Serum or Plasma T4 FREE Lab Routine Morbid obesity with BMI of 50.0-59.9, adult Type 2 diabetes 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, 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 Gastroesophageal reflux disease, unspecified whether esophagitis present Hypersomnolence Expected: 08/24/2022, Expires: 08/24/2023 [facility] Comment on above: Expected: 08/24/2022 , Expires: 08/24/2023 Start: 08-24-2022 End: 08-24-2023 VITAMIN A VITAMIN A Lab Routine Morbid obesity with BMI of 50.0-59.9, adult Type 2 diabetes 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, 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 Gastroesophageal reflux disease, unspecified whether esophagitis present Hypersomnolence Expected: 08/24/2022, Expires: 08/24/2023 [facility] Comment on above: Expected: 08/24/2022 , Expires: 08/24/2023 Start: 08-24-2022 End: 08-24-2023 VITAMIN B1 VITAMIN B1 Lab Routine Morbid obesity with BMI of 50.0-59.9, adult Type 2 diabetes 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, unspecified whether penitentiary insulin use Gastroesophageal reflux disease, unspecified whether esophagitis present Hypersomnolence Expected: 08/24/2022, Expires: 08/24/2023 [facility] Comment on above: Expected: 08/24/2022 , Expires: 08/24/2023 Start: 08-24-2022 End: 08-24-2023 VITAMIN D (25-HYDROXY,TOTAL) VITAMIN D (25-HYDROXY,TOTAL) Lab Routine Morbid obesity with BMI of 50.0-59.9, adult Type 2 diabetes 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, 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 Gastroesophageal reflux disease, unspecified whether esophagitis present Hypersomnolence Expected: 08/24/2022, Expires: 08/24/2023 [facility] Comment on above: Expected: 08/24/2022 , Expires: 08/24/2023 Start: 08-24-2022 End: 08-24-2023 VITAMIN E VITAMIN E Lab Routine Morbid obesity with BMI of 50.0-59.9, adult Type 2 diabetes 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, unspecified whether penitentiary insulin use Gastroesophageal reflux disease, unspecified whether esophagitis present Hypersomnolence Expected: 08/24/2022, Expires: 08/24/2023 [facility] Comment on above: Expected: 08/24/2022 , Expires: 08/24/2023 Start: 08-24-2022 End: 08-24-2023 XR Chest PA and Lateral XR CHEST PA AND LATERAL Imaging Routine Morbid obesity with BMI of 50.0-59.9, adult Type 2 diabetes 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, unspecified whether penitentiary insulin use Gastroesophageal reflux disease, unspecified whether esophagitis present Hypersomnolence Expected: 08/24/2022, Expires: 08/24/2023 [facility] Comment on above: Expected: 08/24/2022 , Expires: 08/24/2023 Start: 06-27-2022 EPV, Provider: April Brooks, Status: Pen, Time: 8:00 AM EPV, Provider: April Brooks, Status: Pen, Time: 8:00 AM [facility] [place]: Start: 03-30-2022 Influenza vaccination INFLUENZA VACC INE (#1) [facility] Start: 03-14-2022 EPV, Provider: April Brooks, Status: Pen, Time: 8:00 AM EPV, Provider: April Brooks, Status: Pen, Time: 8:00 AM [facility] [place]: Start: 02-16-2022 EPV, Provider: April Brooks, Status: Pen, Time: 8:40 AM EPV, Provider: April Brooks, Status: Pen, Time: 8:40 AM [facility] [place]: Start: 11-23-2021 EPV, Provider: April Brooks, Status: Pen, Time: 8:20 AM EPV, Provider: April Brooks, Status: Pen, Time: 8:20 AM [facility] [place]: Start: 07-17-2021 COVID-19 VACCINE (4 - Booster for Pfizer series) COVID-19 VACCINE (4 - Booster for Pfizer series) [facility] Start: 07-17-2021 COVID-19 Vaccine (4 - Pfizer risk series) COVID-19 Vaccine (4 - Pfizer risk series) [facility] Start: 07-17-2021 COVID-19 VACCINE (4 - Pfizer series) COVID-19 VACCINE (4 - Pfizer series) [facility] Start: 02-10-2021 Screening for malign ant neoplasm of colon COLORECTAL CANCER SCREENING DISCUSSION [facility] Start: 2014 Zoster vaccine hzv l ekaterina for subcutaneous use ZOSTER (SHINGLES) VACCINE (1 of 2) [facility] Start: 2014 Zoster Vaccines (1 o f 2) Zoster Vaccines (1 of 2) [facility] Start: 2009 Screening for malign ant neoplasm of colon COLORECTAL CANCER SCREENING DISCUSSION [facility] Start: 2004 Lipid panel LIPID SCREENING [facility] Start: 2004 Screening for malign ant neoplasm of breast [facility] Start: 1986 DTaP/Tdap/Td Vaccine s (1 - Tdap) DTaP/Tdap/Td Vaccines (1 - Tdap) [facility] Start: 1985 Screening for malign ant neoplasm of cervix [facility] Start: 12-15-1983 Hepatitis B vaccination HEP B VACCINE (1 of 3 - 19+ 3-dose series) [facility] Start: 12-15-1983 Hepatitis B Vaccines (1 of 3 - 19+ 3-dose series) Hepatitis B Vaccines (1 of 3 - 19+ 3-dose series) [facility] Start: 12-15-1983 Pneumococcal vaccination Pneumococcal Vaccine (1 of 2 - PCV) [facility] Start: 12-15-1983 Third diphtheria, tetanus and acellular pertussis (DTaP) vaccination TDAP (ADULT) [facility] Start: 12-15-1983 Urine screening for protein Diabetes: Urine Protein Screening [facility] Start: 12-15-1983 Zoster Vaccines (1 o f 2) Zoster Vaccines (1 of 2) [facility] Start: 1982 Hepatitis C screening Hepatitis C Sc reening [facility] Start: 12-15-1979 HIV screening HIV SCREENING DISCUSSI ON [facility] Start: 1974 Diabetic foot examination Diabetes: Foot Exam [facility] Start: 1974 Glaucoma screening Diabetes: R etinopathy Screening [facility] Start: 1974 Ophthalmic examinati on and evaluation Diabetes: Retinopathy Screening [facility] Start: 1970 PNEUMOCOCCAL VACCINE SERIES (1 - PCV) PNEUMOCOCCAL VACCINE SERIES (1 - PCV) [facility] Start: 1970 PNEUMOCOCCAL VACCINE SERIES (1 of 2 - PCV) PNEUMOCOCCAL VACCINE SERIES (1 of 2 - PCV) [facility] Start: 1970 Pneumococcal Vaccine : Pediatrics (0 to 5 Years) and At-Risk Patients (6 to 64 Years) (1 - PCV) Pneumococcal Vaccine: Pediatrics (0 to 5 Years) and At-Risk Patients (6 to 64 Years) (1 - PCV) [facility] Start: 1970 Pneumococcal Vaccine : Pediatrics (0 to 5 Years) and At-Risk Patients (6 to 64 Years) (1 of 2 - PCV) Pneumococcal Vaccine: Pediatrics (0 to 5 Years) and At-Risk Patients (6 to 64 Years) (1 of 2 - PCV) [facility] Start: 1969 COVID-19 Vaccine (#1) COVID-19 Vacci ne (#1) [facility] Start: 1965 MMR Vaccines (1 of 1 - Standard series) MMR Vaccines (1 of 1 - Standard series) [facility] Start: 1964 Diabetic foot examination DIABETIC FOOT EXAM [facility] Start: 1964 Glaucoma screening EYE EXAM [facility] Start: 1964 Hemoglobin A1c measurement Diabetes: Hemoglobin A1C [facility] Start: 1964 Hepatitis B vaccination HEP B VACCINE (1 of 3 - 3-dose series) [facility] Start: 1964 Hepatitis B Vaccines (1 of 3 - 3-dose series) Hepatitis B Vaccines (1 of 3 - 3-dose series) [facility] Start: 1964 Hepatitis C screening HEPATITI S C VIRUS SCREENING [facility] Start: 1964 HIV screening HIV Screening [facility] Start: 1964 Lipid panel Lipid Panel [facility] Start: 1964 Medicare Annual Wellness Visit Medicare Annual Wellness Visit (AWV) [facility] Start: 1964 Screening for malign ant neoplasm of colon [facility] Start: 1964 Tetanus vaccination TETANUS [facility] Start: 1964 Urine screening for protein [facility] Start: 1964 Yearly Adult Physical Yearly Adult P hysical [facility] Polysomnography SCHEDULE HOME SL EEP STUDY PFT Routine Sleep apnea, unspecified type Overweight Snoring Insomnia, unspecified type Tests ordered Ordered: 09/26/2022 [facility] Work Phone: Comment on above: Ordered: 09/26/2022 SURGICAL PATHOLOGY REQUEST SURGICAL PATHOLOGY REQUEST Surg Path Routine Morbid obesity with BMI of 50.0-59.9, adult Type 2 diabetes 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, unspecified whether penitentiary insulin use Gastroesophageal reflux disease, unspecified whether esophagitis present Hypersomnolence Release Upon Ordering for 1 Occurrences starting 09/08/2022 [facility] Comment on above: Release Upon Orderin g for 1 Occurrences starting 09/08/2022 [facility] Work Phone: NEGATED: Highlighted row has been ruled out! Planned Goals not documented [facility] Work Phone: Immunizations Immunization Date Immunization Notes Care Provider Fa ana 09-17-2021 influenza, injectabl e, quadrivalent, preservative free April Brooks Work Phone: [facility] 09-17-2021 influenza virus vaccine, unspecified formulation [facility]arly Blanco DO [facility] 05-22-2021 Pfizer-BioNTFitfully COVID-19 Vacc 30 MCG/0.3ML Intramuscular Suspension April Brooks Work Phone: [facility] Work Phone: 11-07-2020 Pfizer-BioNTech COVID-19 Vacc 30 MCG/0.3ML Intramuscular Suspension April Brooks Work Phone: [facility] Work Phone: 10-16-2020 Pfizer-BioNTech COVID-19 Vacc 30 MCG/0.3ML Intramuscular Suspension April Brooks Work Phone: [facility] Work Phone: Payers Date Payer Category Payer Self-pay [id number] 2010 Managed Care (Private) [facility] PL[facility] [id number] 2010 Private Health Insurance 2010 Private Health Insurance [id number] 1964 Unknown [id number] .[id number]. 2 1964 Unknown [id number]. 2. 1964 Unknown [id number] .840.1.020799.3.579. 2. 1964 Unknown [id number] 840.1.123332.3.579. 2.717 1964 Unknown [id number] 2.16.840.1.113915.3.579. 2.356 1964 Unknown [id number] 2.16.840.1.834349.3.579. 2.356 1964 Unknown [id number] 2.16840.1.425557.3.579. 2.356 1964 Unknown [id number] 2.16.840.1.861356.3.579. 2.983 1964 Unknown [id number] 2.16840.1.345258.3.579. 2.983 1964 Unknown [id number] 2.840.1.126188.3.579. 2.983 1964 Unknown [id number] 2.840.1.995740.3.579. 2.983 1964 Unknown [id number] 2.16840.1.925046.3.579. 2.983 1964 Unknown [id number] 2.16840.1.216370.3.579. 2.983 1964 Unknown [id number] 2.16840.1.229224.3.579. 2.983 1964 Unknown [id number] 2.840.1.646278.3.579. 2.983 1964 Unknown [id number] 2.16840.1.355383.3.579. 2.983 1964 Unknown [id number] 2.16840.1.004835.3.579. 2.983 1964 Unknown [id number] 2.16840.1.204696.3.579. 2.1244 1964 Unknown [id number] 2.16840.1.356855.3.579. 2.1244 Unknown [facility] Unknown [id number] 2.16.840.1.363564.3.579. 2.462 Unknown [id number] 2.16.840.1.511076.3.579. 2.462 Unknown [id number] 2.16.840.1.421750.3.579. 2.462 Unknown [id number] 2.16.840.1.428119.3.579. 2.462 Unknown [id number] 2.16.840.1.597096.3.579. 2.462 Social History Date Type Detail Facility Assertion Tobacco smoking consumption unknown (finding) [facility] Work Phone: Start: 12-26-2022 End: 07-14-2024 Consumes alcohol occasionally Consumes alcohol occasionally [facility] Work Phone: Start: 08-09-2021 End: 08-09-2021 Tobacco smoking status NHIS Unknown if ever smoked [facility] Start: 11-09-2018 Occasional [facility] Start: 11-09-2018 None [facility] Start: 11-09-2018 Alone [facility] Start: 06-09-2020 Non-smoker [facility] Start: 1965 Sex Assigned At Female [facility] Work Phone: Start: 08-24-2022 End: 12-26-2022 Tobacco smoking status NHIS Never smoked tobacco [facility] Start: 08-24-2022 End: 12-26-2022 Tobacco use and exposure Smokeless tobacco non-user [facility] Start: 08-24-2022 End: 01-13-2025 Alcohol intake Current drinker of alcohol (finding) [facility] Start: 08-24-2022 Alcohol Comment rarely [facility] Start: 12-26-2022 End: 07-14-2024 Tobacco use panel [facility] Work Phone: Start: 1965 Sex Assigned At Not on file [facility] Work Phone: Start: 12-16-2022 End: 07-14-2024 Exposure to SARS-CoV-2 (event) Not sure [facility] Medical Equipment Procedure Code Equipment Code Equipment Origin al Text Equipment Identifier Dates twice a day. [id number] Start: 03-14-2022 End: 07-10-2023 twice a day. [id number] Start: 07-10-2023 End: 01-13-2025 Check daily [id number] Start: 01-13-2025 Functional Status Date Assessment Result Facility NEGATED: Highlighted row Functional performance Functional status health issues are not documented [facility] Work Phone: Mental Status Date Assessment Result Facility NEGATED: Highlighted row Cognitive function [Interpretation] Cognitive status health issues are not documented Disease [facility]: Clinical Notes 08-09-2021 to 07-14-2024 April Brooks MD - 07/14/2024 8:20 AM Davion Blanco DO - 05/08/2024 8:45 AM Migel Brooks MD - 01/11/2024 9:00 AM Dwight Blanco DO - 10/25/2023 8:30 AM EDTDischarge Instructions Note Date & Type Note Facility 07-14-2024 History of Present illness Narrative Subjective Patient ID: Anthony Sawyer is a 58 y.o. female who presents for Follow-up (6 mo). HPI Since the last office visit there have been no interval operations, hospitalizations, important illnesses or injuries. Insomnia. On trazodone 100 but really not working SL 1 hr , sleep 4-5 hrs. Sleep is restorative there is no hangover will continue HTN-Takes and tolerates meds without side effects. No alcohol. no tobacco. no exercise. low salt. Reviewed recommendation for 150 minutes of exercise per week including 2 days of weight training if over age 50. 142/72 this am avgs are normotensive. Hyperlipidemia- is on a statin and a prudent diet. DM-avg 120+ RA dr lentz Given request for labs to dovetail with Dr. John lópez's labs Weight has been stable for 7 months post gastric bypass surgery Review of Systems General-no fatigue weight to within 10 pounds ENT no problems with vision swallowing Cardiac no chest pains palpitations change in exercise tolerance or capacity Pulmonary no cough shortness of breath GI no heartburn or abdominal pain Musculoskeletal no joint pains Objective BP 150/80 Pulse 59 Wt 108 kg (238 lb) SpO2 100% BMI 42.16 kg/m Physical Exam General: Alert, No acute [...] List Items Addressed This Visit ICD-10-CM Diabetes (Multi) E11.9 Relevant Medications metFORMIN XR 500 mg 24 hr tablet Other Relevant Orders Hemoglobin A1C Follow Up In Primary Care documented in this encounter [facility] Work Phone: 05-08-2024 History of Present illness Narrative BARIATRIC CLINIC FOLLOW UP VISIT SHANTELL Anthony Alejandra Silverio is seen today for a follow up visit. she is doing well and reports no problems at this time. she denies reflux, abdominal pain, nausea or vomiting. she is exercising and taking her vitamins. She has lost about 60 lbs since surgery. Current Outpatient Medications Medication Sig Dispense Refill Atorvastatin 40 MG tablet Take by mouth daily. PM DULoxetine HCl [address] Particles capsule daily. Etanercept 50 MG/ML Solution Prefilled Syringe injection Inject 1 mL as directed once a week. Folic acid 1 MG tablet Take by mouth 2 times daily. metFORMIN 500 MG tablet Take by mouth 2 times daily. omeprazole [address] capsule Take 1 capsule by mouth daily. 30 capsule 2 Ondansetron 4 MG Tab Dispersible tablet Take 1 tablet by mouth every 8 hours as needed. 30 tablet 2 traZODone 100 MG tablet 1 tablet every evening at 6 PM. Misc. Devices Misc by Unknown route. APAP 5-15 cm h2o set up 01/03/23-on [facility] [employer] oxyCODONE 5 MG/5ML Solution oral solution Take [...] REVIEW: Lab Results Component Value Date WBC 8.9 05/06/2024 HGB 12.5 05/06/2024 HCT 39.0 05/06/2024 MCV 88.5 05/06/2024 PLATELET 241 05/06/2024 Lab Results Component Value Date SODIUM 138 05/06/2024 POTASSIUM 4.2 05/06/2024 CO2 30 05/06/2024 CALCIUM 9.5 05/06/2024 BUN 13 05/06/2024 GLUCOSE 140 (H) 05/06/2024 ALBUMIN 4.3 05/06/2024 BILITOTAL 1.5 (H) 05/06/2024 ALKPHOS 93 05/06/2024 AST 31 05/06/2024 ALT 13 05/06/2024 ANIONGAP 7 04/13/2023 Lab Results Component Value Date IRON 65 05/06/2024 Lab Results Component Value Date CHOLESTEROL 250 (H) 09/21/2022 HDL 65 (H) 09/21/2022 LDLCALC 154 (H) 09/21/2022 TRIG 157 (H) 09/21/2022 Lab Results Component Value Date [id number] 36.3 05/06/2024 Lab Results Component Value Date FOLATE 11.6 05/06/2024 Lab Results Component Value Date [id number] 153.1 07/17/2023 IMPRESSION: S/P sleeve gastrectomy, weight loss PLAN: DISPOSITION: Return in 1 year for follow up visit EDUCATION: Pt encouraged to continue with positive lifestyle changes and take vitamins daily Check labs I spent greater than 20 minutes in total reviewing the patient's chart, interviewing the patient, and documenting today's visit. Carly Blanco DO documented in this encounter [facility] 01-11-2024 History of Present illness Narrative Subjective Patient ID: Anthony Sawyer is a 58 y.o. female who presents for Follow-up (3 mo). HPI done well over the last 3 months. Little weight loss plateau 4 pounds down since last visit. Dm 120+, A1c nnext week with ra labs Review of Systems General-no fatigue weight to within 10 pounds ENT no problems with vision swallowing Cardiac no chest pains palpitations change in exercise tolerance or capacity Pulmonary no cough shortness of breath GI no heartburn or abdominal pain Musculoskeletal no joint pains Objective BP 130/78 Pulse 73 Ht 1.6 m (5' 3) Wt 107 kg (234 lb 12.8 oz) SpO2 100% BMI 41.59 kg/m Physical Exam General: Alert, No acute [...] List Items Addressed This Visit ICD-10-CM Diabetes (Multi) E11.9 Relevant Orders Hemoglobin A1C Follow Up In Primary Care Lipid Panel documented in this encounter [facility] Work Phone: 10-25-2023 History of Present illness Narrative BARIATRIC CLINIC FOLLOW UP VISIT HPI Anthony Sawyer is seen today for a follow up visit. she is doing well and reports no problems at this time. she denies abdominal pain, nausea or vomiting. she is exercising and taking her vitamins. [...] capsule by mouth daily. 30 capsule 2 traZODone 100 MG tablet 1 tablet every evening at 6 PM. Ondansetron 4 MG Tab Dispersible tablet Take 1 tablet by mouth every 8 hours as needed. 30 tablet 2 oxyCODONE 5 MG/5ML Solution oral solution Take [...] REVIEW: Lab Results Component Value Date WBC 6.0 07/17/2023 HGB 13.4 07/17/2023 HCT 41.1 07/17/2023 MCV 89.2 07/17/2023 PLATELET 234 07/17/2023 Lab Results Component Value Date SODIUM 137 04/13/2023 POTASSIUM 3.6 04/13/2023 CO2 24 04/13/2023 CALCIUM 7.8 (L) 04/13/2023 BUN 22 (H) 04/13/2023 GLUCOSE 152 (H) 04/13/2023 ALBUMIN 3.8 09/21/2022 BILITOTAL 1.0 09/21/2022 ALKPHOS 87 09/21/2022 AST 17 09/21/2022 ALT 13 (L) 09/21/2022 ANIONGAP 7 04/13/2023 Lab Results Component Value Date IRON 56 07/17/2023 Lab Results Component Value Date CHOLESTEROL 250 (H) 09/21/2022 HDL 65 (H) 09/21/2022 LDLCALC 154 (H) 09/21/2022 TRIG 157 (H) 09/21/2022 Lab Results Component Value Date [id number] 36.0 07/17/2023 Lab Results Component Value Date FOLATE 11.4 07/17/2023 Lab Results Component Value Date [id number] 153.1 07/17/2023 IMPRESSION: S/P sleeve gastrectomy, weight loss PLAN: DISPOSITION: Return in 6 months for follow up visit EDUCATION: Pt encouraged to continue with positive lifestyle changes and take vitamins daily Check labs I spent greater than 20 minutes in total reviewing the patient's chart, interviewing the patient, and documenting today's visit. Carly Blanco DO documented in this encounter [facility] 10-18-2023 History of Present illness Narrative OUTPATIENT BARIATRIC POST-SX NUTRITION ASSESSMENT Referring Provider: Self, Self Nutrition Assessment Anthropometrics: Ht Readings from Last 1 Encounters: 07/17/23 1.6 m (5' 3) Wt Readings from Last 10 Encounters: 10/18/23 109.4 kg (241 lb 4 oz) 07/17/23 113.1 kg (249 lb 6.4 oz) 06/28/23 114.8 kg (253 lb) 06/11/23 117 kg (258 lb) 05/10/23 123.4 kg (272 lb) 04/26/23 127.4 kg (280 lb 12.8 oz) 04/13/23 133.4 kg (294 lb) 03/27/23 132.5 kg (292 lb) 03/27/23 135.2 kg (298 lb) 03/22/23 136.1 kg (300 lb) [place] body weight: 52.4 kg (115 lb 8.3 oz) Adjusted ideal body weight: 75.2 kg (165 lb 13 oz) Body mass index is 42.74 kg/m . Pre-surgical weight: 294 lbs on 04/11/23: s/p LSG Total weight loss since sx= 57 lbs x (19.4% of pre-op BW) Estimated Energy Needs: Calories: 1310 (25 kcal/kg IBW) Protein: 60-80 (1.1-1.5 gm/kg IBW) Vitamins/Minerals: Pt is taking all required vitamin & mineral supplements daily including: iron and calcium by >2 hours Taking calcium twice per day Meeting all bariatric ETL LEAD recommendations Diet Recall: Meal What Time Breakfast 1 regular coffee, collagen peptides, 1/2 piece dry toast 8am Snack 1 protein shake Lunch 1 cup green beans, asparagus, broccoli, squash 12pm Snack 1 protein shake Dinner 1 meat protein, 1 vegetable 6pm Snack Fluids 64 oz water, 1 regular coffee SF creamer, 1 hot tea NA Current exercise regimen: Pt is not exercising (canceled gym membership) ordered resistances bands and uses treadmill 1x a week Post Surgery Nutrition Goals: Eat 5-6x/day (include [...] 150 minutes of cardiovascular activity per week: NOT MET 1-2 days of strength training: NOT MET Separate eating and drinking by 30 minutes: MET Eat in this order: protein first, vegetable and fruit second and whole grain carbohydrates last: MET Chew your food 20-30x per bite: MET Meals should last 20-30 minutes: MET Subjective comments: Ms. Anthony Garsiadafne is a 57 y.o. female here for a bariatric surgery post-op visit. Pt is 6 months post-op. Pt is tolerating phase V of the post-op diet with intermittent aversions. Pt usually tolerates chicken (different cooking methods), beef, seafood, vegetables and fruits, rice, noodles and breads. Patient supplementing with protein bars and shakes when she's not at home or having a day that phase V foods are causing nausea. Pt reports canceling her gym membership and ordered resistance bands and plans to do aerobic and resistance training at home starting next week Due to patient struggling with intermittent aversions, patient will follow up with dietitian in two months. Protein shake ensure pro max, PMH: Past Medical History: Diagnosis Date Anemia low Fe Arthritis Diabetes mellitus type 2 Fibromyalgia Insomnia ART (obstructive sleep apnea) PSH: Past Surgical History: Procedure Laterality Date GASTRECTOMY LONGITUDINAL (SLEEVE) ROBOTIC N/A 04/11/2023 Laterality: N/A; Surgeon: Carly Blanco DO; Location: [facility] [...] 09/21/2022 BP Readings from Last 3 Encounters: 07/17/23 117/79 06/28/23 136/80 05/10/23 177/85 Nutrition Diagnosis NC-1.4 Altered GI function related to surgical alteration of the gastrointestinal tract related to s/p LSG on 04/11/23. Nutrition Intervention Nutrition Goals: Consume 60-80 kcals/day through 5-6 small meals (B, L, D, and 2-3 snacks) Consume 5731-1473 gm of protein/day Limit all sugar & [...] least twice per week Monitoring & Evaluation 8 month post-op appointment will be scheduled Time spent with pt: 30 minutes DONNIE Tavares Registered Dietitian, Licensed Dietitian 10/18/23 documented in this encounter [facility] [employer] [facility] 10-11-2023 History of Present illness Narrative Subjective Patient ID: Anthony Sawyer is a 57 y.o. female who presents for Follow-up (3 mo rev labs ([place])). HPI Has lost 60#, bariatric surgery without good labs and follow-up. A1c is at goal Having come from 9.6 preoperatively to 7.1. Rheumatoid managed by Dr. John lópez. Labs reviewed Review of Systems General-no fatigue weight to within 10 pounds ENT no problems with vision swallowing Cardiac no chest pains palpitations change in exercise tolerance or capacity Pulmonary no cough shortness of breath GI no heartburn or abdominal pain Musculoskeletal no joint pains Objective BP 130/72 Pulse 62 Ht 1.6 m (5' 3) Wt 108 kg (238 lb 12.8 oz) SpO2 96% BMI 42.30 kg/m Physical Exam General: Alert, No acute [...] List Items Addressed This Visit ICD-10-CM Diabetes (CMS/HCC) E11.9 Relevant Orders Hemoglobin A1C Follow Up In Primary Care Rheumatoid arthritis (CMS/HCC) M06.9 documented in this encounter [facility] Work Phone: 07-17-2023 History of Present illness Narrative BARIATRIC CLINIC FOLLOW UP VISIT HPI Anthony Berryc is seen today for a follow up [...] (H) 09/21/2022 Lab Results Component Value Date [id number] 10.7 (L) 09/21/2022 Lab Results Component Value Date FOLATE 10.9 09/21/2022 Lab Results Component Value Date [id number] 145.7 09/21/2022 IMPRESSION: S/P sleeve gastrectomy, weight loss PLAN: DISPOSITION: Return in 3 months for follow up visit EDUCATION: Pt encouraged to continue with positive lifestyle changes and take vitamins daily Check labs I spent greater than 20 minutes in total reviewing the patient's chart, interviewing the patient, and documenting today's visit. Carly Blanco DO documented in this encounter [facility] 07-10-2023 History of Present illness Narrative Subjective [...] Objective BP 132/80 Ht 1.6 m (5' 3) Wt 112 kg (246 lb 4.8 oz) BMI 43.63 kg/m Physical Exam Heart regular without murmur lungs clear to auscultation Assessment/Plan Problem List Items Addressed This Visit ICD-10-CM Diabetes ([facility]) - Primary E11.9 Relevant Medications blood sugar diagnostic (Blood Glucose Test) strip Other Relevant Orders Hemoglobin A1C Follow Up In Primary Care Hyperlipemia E78.5 documented in this encounter [facility] Work Phone: 06-28-2023 History of Present illness Narrative SLEEP [place] Score - 4 CPAP/BIPAP/APAP Pressure - 5-15 Neck Circumference - 17 Most Recent Sleep Study - 11/07/22 Oxygen Use - no If so, how many liters and is it PRN, Nocturnal, or continuous? Patient is benefiting from PAP therapy-- DME - N/A Referred by- Dr. 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 [employer] company stated insurance was no longer going to [...] ROBOTIC N/A 04/11/2023 Laterality: N/A; Surgeon: Carly Blanco DO; Location: [facility] [...] kg (253 lb) Height: 1.6 m (5' 3) Physical Examination Physical Exam Vitals and nursing [...] Behavior: Behavior normal. Judgment: Judgment normal. SLEEP [place] Score - 4 CPAP/BIPAP/APAP Pressure - 5-15 Neck Circumference - 17 Most Recent Sleep Study - 11/07/22 Oxygen Use - no If so, how many liters and is it PRN, Nocturnal, or continuous? Patient is benefiting from PAP therapy-- DME - N/A Referred by- Dr. 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 - Patient should be eligible for new supplies approximately every 3-6 months, depending on your insurance coverage, [employer] company will inform patient of coverage - If patient mask does not fit well, contact [employer] company before 30 days are up to get a new mask without an additional charge - Insurance requires regular usage and periodic office follow ups for PAP therapy to continue to cover supplies Insurance Requirements: - Your insurance requires a [id number] follow up visit within 31-90 days period [...] plan of care, referring/communicating with other health health and social care teacher, as well as documenting the clinical information in the EHR. This includes face to face time and preparing to see the patient (review of tests) I personally reviewed selected chart notes, results, interpreted tests, imaging today before seeing the pt; reviewed and discussed w/ pt, questions answered. Portions of this chart were created using [employer] electronic dictation. Please excuse any typographical or grammatical errors contained herein as a result. Some Elements copied from previous notes. I have updated where appropriate, and all reflect current medical decision making from today's encounter. RICARDO Tilley documented in this encounter [facility] 06-11-2023 History of Present illness Narrative OUTPATIENT BARIATRIC POST-SX NUTRITION ASSESSMENT Referring Provider: Calry Blanco, DO Nutrition Assessment Anthropometrics: Ht Readings from Last 1 Encounters: 05/10/23 1.6 m (5' 3) Wt Readings from Last 10 Encounters: 06/11/23 117 kg (258 lb) 05/10/23 123.4 kg (272 lb) 04/26/23 127.4 kg (280 lb 12.8 oz) 04/13/23 133.4 kg (294 lb) 03/27/23 132.5 kg (292 lb) 03/27/23 135.2 kg (298 lb) 03/22/23 136.1 kg (300 lb) 02/23/23 133.8 kg (295 lb) 12/05/22 122.6 kg (270 lb 3.2 oz) 12/05/22 131.2 kg (289 lb 3.2 oz) [place] body weight: 52.4 kg (115 lb 8.3 [...] calcium twice per day Meeting all bariatric ETL LEAD recommendations Diet Recall: Meal What Time Breakfast Half a piece of dried toast (ensure max protein shake - 30 grams) 8 am Snack Uzbek yogurt with bran cereal on top (12 grams protein in dominican light and fit yogurt) 10 am Lunch [place] smoked sausage (2-3 oz), broccoli (1/2 cup) [...] 20-30 minutes: MET Subjective comments: Ms. Anthony Berrymarimar is a 57 y.o. female here for [...] ROBOTIC N/A 04/11/2023 Laterality: N/A; Surgeon: Carly Blanco DO; Location: [facility] [...] Licensed Dietitian 06/11/23 documented in this encounter [facility] 05-10-2023 History of Present illness Narrative BARIATRIC CLINIC POST OP VISIT HPI Anthony is seen today for a post op [...] (H) 09/21/2022 Lab Results Component Value Date [id number] 10.7 (L) 09/21/2022 Lab Results Component Value Date FOLATE 10.9 09/21/2022 Lab Results Component Value Date [id number] 145.7 09/21/2022 IMPRESSION: S/P sleeve gastrectomy PLAN: DISPOSITION: Return in 2 months for follow up visit EDUCATION: Pt encouraged to continue with positive lifestyle changes and take vitamins daily Check labs in 2 months Advance to soft diet, call with problems Carly Blanco DO documented in this encounter [facility] 09-15-2023 Nurse [address] Dr. Blanco the patient was ready for discharge. Discharge instructions were then reviewed with the patient and friend at bedside. Meds to beds delivered with seal intact. IV removed without difficulty. The patient denies any questions or concerns at this time. [facility] 04-13-2023 Miscellaneous Notes Confirmed with Dr. Blanco the patient was ready for discharge. Discharge [...] with pt. Pt ambulated in [place] with GAME AGENT. Pt denies any pain or needs at [...] bed in lowest position, SR upx2. Dr Blanco in to see patient at this time. [...] track of intake. Friend attentive at bedside. Concrete Engineer delivered supplement shake for patient to try. [...] states I think I'm having an allergic reaction. No hives. Patient denies itchiness, sob, or [...] OF SERVICE: 04/11/2023 NAME: Anthony Sawyer CSN: [id number] PRE OP DIAGNOSES: Morbid obesity with DM [...] interpretation of ICG for perfusion SURGEON: Carly Blanco DO KNOCKER OUT: Surgical Staff: Director Trade: Lucrecia Rogers RN; Jen Crespo RN Scrub Person: Tess Suarez Rug Repairer [employer] Business Intelligence Developer: Sandeep Moore ANESTHESIA: GETA ESTIMATED BLOOD LOSS IN MLS: 20 COMPLICATIONS: None SPECIMEN: stomach PREOPERATIVE NOTE: The contemplated operative procedure, risks, benefits and alternatives to this procedure have been discussed with this patient and/or legal manufacturing sales representative. The patient and/or legal manufacturing sales representative acknowledge(s) understanding of the above and [...] transferred to PACU in stable condition. Carly Blanco DO 11:11 AM documented in this encounter [facility] 04-13-2023 Plan of care note Problem: Bariatric Surgery (Adult,Pediatric) Goal: Signs and Symptoms of Listed Potential Problems Will be Absent, Minimized or Managed (Bariatric Surgery) Description: Signs and symptoms of listed potential problems will be absent, minimized or managed by discharge/transition of care (reference Bariatric Surgery (Adult,Pediatric) CPG). Outcome: Ongoing Goal: Anesthesia/Sedation Recovery Outcome: Ongoing [facility] 04-13-2023 Hospital course Narrative Discharge Summary Name: Anthony Sawyer Age: 57 y.o. Birthday: 1965 Admit Date: 04/11/2023 7:36 AM Discharge Date: 04/13/23 Discharge Time: 803 Discharge Unit: [facility] Admission Information Admitting Physician: Carly Blanco DO Discharge Information Discharge Physician: Carly Blanco DO Problem List Active Hospital Problems Diagnosis [...] STOP taking these medications Ergocalciferol 1.25 MG (31977 UT) CAPS Commonly known as: VITAMIN D2 [...] Department Dept Phone 04/26/2023 8:30 AM Carly Blanco [facility] Bariatric [facility] [phone] 06/11/2023 8:00 AM Jan Bonner [facility] Nutrition and Dietetics [phone] 06/28/2023 8:45 AM Rosanne Haro [facility] Pulmonary Disease [facility] [phone] documented in this encounter [facility] 04-13-2023 Hospital Discharge instructions Carly Blanco DO - 04/13/2023 8:03 AM EDT Anthony Alejandra Silverio 1965 PRINCIPAL DIAGNOSIS: Morbid Obesity OTHER DIAGNOSES: [...] blood pressure medications). Follow up with Dr. Blanco at your scheduled visit or call for an earlier appointment if having issues or concerns. documented in this encounter [facility] 04-13-2023 Nurse Note Pt assessment remains unchanged with any exceptions noted in flowsheets. Pt is resting in bed. SCD's on. Pt denies any pain or needs at this time. Call light within reach. [facility] 04-12-2023 Nurse Note Pt assessment remains unchanged with any exceptions noted in flowsheets. Pt wearing CPAP. Pt denies any pain or needs at this time. Call light within reach. [facility] 04-12-2023 Nurse Note Pt assessment complete. POC reviewed with pt. Pt ambulated in [place] with GAME AGENT. Pt denies any pain or needs at this time. Call light within reach. T [facility] 04-12-2023 Nurse Note Remains laying in bed, HOB low fowlers. No change noted from previous assessment by this RN unless otherwise detailed in coordinating flow sheets. Friend remains supportive at bedside. Denies additional needs at this time, call light in reach, bed in lowest position, SR upx2. [facility] 04-12-2023 Nurse Note Ambulating in [place], gait steady accompanied by friend. [facility] 04-12-2023 Nurse Note Ambulating in [place] with friend, gait steady. [facility] 04-12-2023 Nurse Note Remains laying in bed, HOB low fowlers. No change noted from previous assessment by this RN unless otherwise detailed in coordinating flow sheets. Denies additional needs at this time, call light in reach, bed in lowest position, SR upx2. [facility] 04-12-2023 History of Present illness Narrative GENERAL SURGERY PROGRESS NOTE PATIENT NAME: Anthony Berry DATE: 04/12/2023 HPI: Anthony is seen today at bedside. She is doing well. She denies abdominal pain, nausea or vomiting. She is walking in the halls ON EXAMINATION: BP 131/63 (BP Location: Right arm, BP Position: Lying) Pulse 62 Temp 97.8 F (36.6 C) (Oral) Resp 18 Ht 1.6 m (5' 3) Wt 135.2 kg (298 lb) SpO2 96% [...] Date 04/12/23 0700 - 04/13/23 0659 Shift 2043-5826 3753-2650 2916-2553 24 Hour Total INTAKE P.O. 1320 1320 [...] - Disposition - Likely home tomorrow Carly Blanco DO Bariatric and Minimally Invasive General Surgery INPATIENT POST BARIATRIC SX NUTRITION ASSESSMENT Ms. Anthony Sawyer is a 57 y.o. female was admitted to [facility] for: 1. Morbid obesity with body mass index of 50 or higher 2. Type 2 diabetes mellitus with hyperglycemia, unspecified whether penitentiary insulin use 3. Preop testing Nutrition Assessment Subjective Assessment: Pt is POD #1 from VSG w/ Dr. Blanco with a presurgical weight of 298 lbs [...] Last 1 Encounters: 04/11/23 1.6 m (5' 2.99) Wt Readings from Last 10 Encounters: 04/11/23 135.2 kg (298 lb) 03/27/23 132.5 kg (292 lb) 03/27/23 135.2 kg (298 lb) 03/22/23 136.1 kg (300 lb) 02/23/23 133.8 kg (295 lb) 12/05/22 122.6 kg (270 lb 3.2 oz) 12/05/22 131.2 kg (289 lb 3.2 oz) 11/14/22 127 kg (280 lb) 10/24/22 127.9 kg (282 lb) 10/03/22 125.2 kg (276 lb) [place] body weight: 52.4 kg (115 lb 7.7 [...] ROBOTIC N/A 04/11/2023 Laterality: N/A; Surgeon: Carly Blanco DO; Location: [facility] [...] RBC 3.91 (L) 04/12/2023 B12 261 09/21/2022 [id number] 10.7 (L) 09/21/2022 FOLATE 10.9 09/21/2022 Nutrition [...] patient Information Source Name self Contact Information Rheumatologist/SW Added to Care Team Yes This Weigh Tank Operator is Primary Rheumatologist/SW Yes Social Work Contact Name Erin ROBISON City Controller's Phone Number [phone] Living Environment Lives With alone Living Arrangements [...] none Initial Discharge Planning Home Care Services (PHOTOGRAPHER) No Home Therapies (PHOTOGRAPHER) None DME (PHOTOGRAPHER) CPAP Medical Supplies (PHOTOGRAPHER) None Anticipated discharge disposition Home Anticipated Changes Related to Illness none Transportation Available family or friend will provide;car Assessment/Concerns to be Addressed Concerns To Be Addressed no discharge needs identified RADIO PERSONALITY spoke with patient who was present with [...] Supine to Sit, Rehab Eval Level of [place]: Supine/Sit independent Transfer Skill: Sit To Stand, Rehab Eval [place] (Sit-Stand Transfers) independent Gait Skills, PT Eval Level of [place]: Gait independent Assistive Device For Transfer: Gait [...] PT evaluation only documented in this encounter [facility] 04-12-[address] Blanco in to see patient at this time. States will hold lovenox and have patient ambulate more, check H&H tomorrow and possibly discharge then. Patient aware of plan. [employer] [facility] 04-12-2023 Nurse Note Remains laying in bed, HOB low fowlers. No change noted from previous assessment by this RN unless otherwise detailed in coordinating flow sheets. Drinking fluids one ounce at a time and is keeping track of intake. Friend attentive at bedside. Concrete Engineer delivered supplement shake for patient to try. Denies additional needs at this time, call light in reach, bed in lowest position, bed alarm on. [employer] [facility] 04-12-2023 Nurse Note Ambulating in [place], gait steady accompanied by friend at this time. [facility] 04-12-2023 Nurse Note Laying in bed on side, HOB low fowlers, upon this RN arrival to patient room. Eyes closed, respirations even and unlabored. Arouses easily to voice. Shift assessment initiated, detailed in coordinating flow sheets. Denies additional needs at this time, call light in reach, bed in lowest position, SR upx2. [facility] 04-12-2023 Nurse Note Patient appears to be flushed, patient states I think I'm having an allergic reaction. No hives. Patient denies itchiness, sob, or abnormal swelling. Refer to flowsheets for patient's blood glucose. Patient's sbp elevated, see flowsheets. Labetolol given, refer to mar. Benadryl given per patient's request for allergic reaction, see mar. [facility] 04-12-2023 Nurse Note Hat placed in patient's commode. Patient informed that staff will be collecting urine output. No change in pt condition since the last nursing assessment unless noted in the flowsheets. Patient denies needs. Call light and bedside table within reach. [facility] 04-12-2023 Plan of care note Problem: Patient [...] outcomes by discharge/transition of care. Outcome: Ongoing [facility] 04-12-2023 Nurse Note No change in pt condition since the last nursing assessment unless noted in the flowsheets. Patient denies needs. Call light and bedside table within reach. [facility] 04-11-2023 Nurse Note Patient educated on the importance of scd therapy while in bed, frequent ambulation, no carbonated beverage, no straws, hob above 30 degrees, and keeping track of oral intake [facility]. Patient verbally states she understands the teaching and denies questions on poc. [facility] 04-11-2023 Consult note Associated Order (s): IP CONSULT TO GENERAL MEDICINE Consult 04/11/2023 7:36 AM Chief Complaint: Reason for Consult: dm type 2. htn urgency. History of Present Illness: Patient is a 57 y.o. female presents to the hospital for planned gastric sleeve procedure. Post operatively patient was hypertensive and hyperglycemic. Case discussed with Dr blanco. He request consult to manage. Patient bp [...] Particles capsule daily. 04/04/2023 Ergocalciferol 1.25 MG (59343 UT) capsule Take 1 capsule by mouth [...] APAP 5-15 cm h2o set up 01/03/23-on [facility] Dasin omeprazole [address] capsule Take [...] -- -- -- -- 1.6 m (5' 2.99) 135.2 kg (298 lb) 04/11/23 1551 140/64 [...] 14 96 % -- -- 04/11/23 1240 176 -- -- 83 14 95 % -- -- 04/11/23 1235 (!) -- -- 89 9 97 % -- -- 04/11/23 1230 (!) -- -- 92 12 97 % -- -- 04/11/23 1225 (!) / -- -- 93 21 97 % -- -- 04/11/23 1220 (!) 220/ -- -- 94 12 97 % -- -- 04/11/23 1215 (!) / -- -- 97 17 97 % -- -- 04/11/23 1210 (!) 222/ -- -- 96 17 98 % -- -- 04/11/23 1205 (!) / -- -- 98 18 98 % -- [...] 11:53 AM ABG No results found for: HCO3, PCO2, PO2 Other notable labs: Impression and Plan: [...] oversedation. S/P gastric sleeve procedure d/w dr blanco pod 0. Hypertensive urgency: prn iv labetalol if sys > 160. Monitor vs. No home rx. Metabolic acidosis: noted hyperchloremia. Labs ordered for am. Monitor. Hx of RA. Fu rheumatology. Code Status No Order I personally spent 5 minutes in the management of this patient, the details of my visit are listed in my documentation above. Coleman Moreau CNP completing consultation in collaboration with attending. Please note Portions of this note utilized [employer] dictation software, please excuse any typographical or [...] all of the MDM for this encounter. [facility] 04-11-2023 Consult note Associated Order (s): IP CONSULT TO GENERAL MEDICINE Consult 04/11/2023 7:36 AM Chief Complaint: Reason for Consult: dm type 2. htn urgency. History of Present Illness: Patient is a 57 y.o. female presents to the hospital for planned gastric sleeve procedure. Post operatively patient was hypertensive and hyperglycemic. Case discussed with Dr blanco. He request consult to manage. Patient bp [...] Particles capsule daily. 04/04/2023 Ergocalciferol 1.25 MG (01540 UT) capsule Take 1 capsule by mouth [...] -- -- -- -- 1.6 m (5' 2.99) 135.2 kg (298 lb) 04/11/23 1551 140/64 [...] 17 95 % -- -- 04/11/23 1250 188 -- -- 78 13 96 % -- [...] 98 % -- -- 04/11/23 1200 (!) 204/81 -- -- 96 14 97 % -- -- 04/11/23 1155 (!) 203 -- -- 97 16 98 % -- -- 04/11/23 1150 198/86 -- -- 100 18 98 % -- -- 04/11/23 1145 (!) 217/ -- -- 103 19 99 % -- [...] 11:53 AM ABG No results found for: HCO3, PCO2, PO2 Other notable labs: Impression and Plan: [...] oversedation. S/P gastric sleeve procedure d/w dr blanco pod 0. Hypertensive urgency: prn iv labetalol if sys > 160. Monitor vs. No home rx. Metabolic acidosis: noted hyperchloremia. Labs ordered for am. Monitor. Hx of RA. Fu rheumatology. Code Status No Order I personally spent 5 minutes in the management of this patient, the details of my visit are listed in my documentation above. Coleman Moreau CNP completing consultation in collaboration with attending. Please note Portions of this note utilized [employer] dictation software, please excuse any typographical or [...] for this encounter. documented in this encounter [facility] 04-11-2023 Nurse Note Patient transferred to 3760 at this time, patient able to transport self over to bed. Vital signs in stable condition. Karen SOTO received report at bedside. Patient bed in lowest position with friend at bedside, call light in reach. [facility] 04-11-2023 Nurse Note Pt arrived to room 3760, oriented to room. Report received from Leslee SOTO. Education provided about water intake, pt verbalized understanding. No further needs voiced. [facility] 04-11-2023 Nurse Note Patient resting quietly in bed, voices an improvement in nausea, lights dimmed per patient request. PO fluid encouraged. [facility] 04-11-2023 Nurse Note Patient transported from PACU back to phase 2, patient is drowsy on 2LNC. Friend is present at bedside. Report received from Amarilis SOTO. [facility] 04-11-2023 Nurse Note Patient transferred to 2 via cart in stable condition. Report given to CHARLES Camilo. Cart left in locked and lowest position with side rails up x2. Snack and call light given to patient. Monitors and alarms on and attached to patient. Patient taken to PACU via cart with emilee RN and VEHICLE OPERATOR TECHNICIAN. Report given to CHARLES Olmos. OR temp 67.5deg F OR humidity 41% documented in this encounter [facility] 04-11-2023 Nurse Surgical operation note Patient transferred to via cart in stable condition. Report given to CHARLES Camilo. Cart left in locked and lowest position with side rails up x2. Snack and call light given to patient. Monitors and alarms on and attached to patient. [facility] 04-11-2023 Nurse Surgical operation note Patient taken to PACU via cart with this RN and VEHICLE OPERATOR TECHNICIAN. Report given to CHARLES Olmos. [facility] 04-11-2023 Progress note Formatting of t his note might be different from the original. I certify that this patient requires inpatient services at this time. I anticipate the expected length of stay will include at least two midnights. Current treatment plan includes pain and nausea control. Plans for post hospitalization care will be discharge to home. T [facility] 04-11-2023 Surgery Postoperative evaluation and management note Operative Report DATE OF SERVICE: 04/11/2023 NAME: Anthony Sawyer CSN: [id number] PRE OP DIAGNOSES: Morbid obesity with DM [...] interpretation of ICG for perfusion SURGEON: Carly Blanco DO KNOCKER OUT: Surgical Staff: Director Trade: Lucrecia Rogers RN; Jen Crespo RN Scrub Person: Tess Suarez Rug Repairer [employer] Business Intelligence Developer: Sandeep Moore ANESTHESIA: GETA ESTIMATED BLOOD LOSS IN MLS: 20 COMPLICATIONS: None SPECIMEN: stomach PREOPERATIVE NOTE: The contemplated operative procedure, risks, benefits and alternatives to this procedure have been discussed with this patient and/or legal manufacturing sales representative. The patient and/or legal manufacturing sales representative acknowledge(s) understanding of the above and [...] transferred to PACU in stable condition. Carly Blanco DO 11:11 AM [facility] [employer] [facility] 04-11-2023 Nurse Surgical operation note OR temp 67.5deg F OR humidity 41% [facility] [employer] [facility] 03-28-2023 History of Present illness Narrative Subjective Patient ID: Anthony Sawyer is a 57 y.o. female who presents for Follow-up (mo). HPI For surgery sept. Dm bs 170-200+, A1c jumped jumped up [...] a prudent diet. Rheumatoid arthritis per the [facility] Review of Systems General-no fatigue weight to within 10 pounds ENT no problems with vision swallowing Cardiac no chest pains palpitations change in exercise tolerance or capacity Pulmonary no cough shortness of breath GI no heartburn or abdominal pain Musculoskeletal multiple joint pains Objective BP 148/80 Pulse 65 Ht 1.6 m (5' 3) Wt 134 kg (296 lb) SpO2 98% [...] Problem List Items Addressed This Visit Diabetes ([facility]) Relevant Medications Trulicity 0.75 mg/0.5 mL pen injector metFORMIN XR 500 mg 24 hr tablet Other Relevant Orders Hemoglobin A1C Follow Up In Primary Care - Established Hyperlipemia Insomnia - Primary Morbid obesity with body mass index of 50 or higher ([facility]) Rheumatoid arthritis ([facility]) documented in this encounter [facility] Work Phone: 03-22-2023 History of Present illness Narrative SLEEP [place] Score - 3 CPAP/BIPAP/APAP Pressure - 5-15 Neck Circumference - 17 Most Recent Sleep Study - 11/07/22 Oxygen Use - no If so, how many liters and is it PRN, Nocturnal, or continuous? Patient is benefiting from PAP therapy-- DME - N/A Referred by- Dr. 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 Judgment: Judgment normal. SLEEP [place] Score - 3 CPAP/BIPAP/APAP Pressure - 5-15 Neck Circumference - 17 Most Recent Sleep Study - 11/07/22 Oxygen Use - no If so, how many liters and is it PRN, Nocturnal, or continuous? Patient is benefiting from PAP therapy-- DME - N/A Referred by- Dr. 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 - Patient should be eligible for new supplies approximately every 3-6 months, depending on your insurance coverage, [employer] company will inform patient of coverage - If patient mask does not fit well, contact [employer] before 30 days are up to get a new mask without an additional charge - Insurance requires regular usage and periodic office follow ups for PAP therapy to continue to cover supplies Insurance Requirements: - Your insurance requires a [id number] follow up visit within 31-90 days period [...] plan of care, referring/communicating with other health health and social care teacher, as well as documenting the clinical information in the EHR. This includes face to face time and preparing to see the patient (review of tests) I personally reviewed selected chart notes, results, interpreted tests, imaging today before seeing the pt; reviewed and discussed w/ pt, questions answered. Portions of this chart were created using [employer] electronic dictation. Please excuse any typographical or grammatical errors contained herein as a result. Some Elements copied from previous notes. I have updated where appropriate, and all reflect current medical decision making from today's encounter. RICARDO Tilley documented in this encounter [facility] 02-23-2023 History of Present illness Narrative SLEEP [place] Score - 6 CPAP/BIPAP/APAP Pressure - 5-15 Neck Circumference - 17 Most Recent Sleep Study - 11/07/22 Oxygen Use - no If so, how many liters and is it PRN, Nocturnal, or continuous? 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 Judgment: Judgment normal. SLEEP [place] Score - 6 CPAP/BIPAP/APAP Pressure - 5-15 Neck Circumference - 17 Most Recent Sleep Study - 11/07/22 Oxygen Use - no If so, how many liters and is it PRN, Nocturnal, or continuous? Patient is benefiting from PAP therapy-- DME - N/A Referred by- Dr. 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 - Patient should be eligible for new supplies approximately every 3-6 months, depending on your insurance coverage, [employer] company will inform patient of coverage - If patient mask does not fit well, contact [employer] company before 30 days are up to get a new mask without an additional charge - Insurance requires regular usage and periodic office follow ups for PAP therapy to continue to cover supplies Insurance Requirements: - Your insurance requires a [id number] follow up visit within 31-90 days period [...] plan of care, referring/communicating with other health health and social care teacher, as well as documenting the clinical information in the EHR. This includes face to face time and preparing to see the patient (review of tests) I personally reviewed selected chart notes, results, interpreted tests, imaging today before seeing the pt; reviewed and discussed w/ pt, questions answered. Portions of this chart were created using [employer] electronic dictation. Please excuse any typographical or grammatical errors contained herein as a result. Some Elements copied from previous notes. I have updated where appropriate, and all reflect current medical decision making from today's encounter. RICARDO Tilley documented in this encounter [facility] 12-26-2022 History of Present illness Narrative Subjective Patient ID: Anthony Sawyer is a 57 y.o. female who presents for Follow-up (3 mo rev labs). HPI Took pred for flareof arthritis december 04-, at 10 mg wt up, got cpap and in 31 d will clear for surgery. Dm 176-202 in am. A1c from [facility] not found. We will track it down and phoned patient to discuss Review of Systems Denies chest pains palpitations cough shortness of breath heartburn or abdominal pain Objective BP 130/80 Pulse 69 Ht 1.6 m (5' 3) Wt 132 kg (290 lb 3.2 oz) [...] In Primary Care documented in this encounter [facility] Work Phone: 12-05-2022 History of Present illness Narrative OUTPATIENT BARIATRIC NUTRITION: PRE-OP SURGERY CLEARANCE Referring Provider: Self, Self The patient was cleared for bariatric surgery from a nutrition perspective. Nutrition Assessment Anthropometrics: Ht Readings from Last 1 Encounters: 09/14/22 1.6 m (5' 3) Wt Readings from Last 10 Encounters: 12/05/22 122.6 kg (270 lb 3.2 oz) 11/14/22 127 kg (280 lb) 10/24/22 127.9 kg (282 lb) 10/03/22 125.2 kg (276 lb) 09/14/22 129.5 kg (285 lb 6.4 oz) 09/12/22 126.6 kg (279 lb) 09/08/22 127.9 kg (282 lb) 08/24/22 128.2 kg (282 lb 9.6 oz) 08/24/22 128.2 kg (282 lb 9.6 oz) [place] body weight: 52.4 kg (115 lb 8.3 oz) Adjusted ideal body weight: 80.5 kg (177 lb 6.3 oz) Body mass index is 47.86 kg/m . Diet Recall: Meal What Time Breakfast 2 scrambled eggs 1/2 banana and piece of dry toast 7 30 am Snack Low fat east timorese cheese and 3 ritz cracks (1-2 oz [...] citrate 500 mg (20x) assorted fruit flavor lot#[id number] exp 06/21 Nutrition Goals: 1. Eat breakfast, [...] 09/21/2022 IRON 71 09/21/2022 B12 261 09/21/2022 [id number] 10.7 (L) 09/21/2022 FOLATE 10.9 09/21/2022 BP [...] Licensed Dietitian 12/05/22 documented in this encounter [facility] 11-07-2022 History of Present illness Narrative The patient arrived @ 14:20. Patient was instructed on Home Study Equipment. Questions were answered and patient voiced understanding. The following is scanned to this encounter Test Data/Misc documented in this encounter [facility] 10-24-2022 History of Present illness Narrative OUTPATIENT BARIATRIC NUTRITION EDUCATION: LESSON 3 Referring Provider: Self, Self Nutrition Assessment Anthropometrics: Ht Readings from Last 1 Encounters: 09/14/22 1.6 m (5' 3) Wt Readings from Last 5 Encounters: 10/24/22 127.9 kg (282 lb) 10/03/22 125.2 kg (276 lb) 09/14/22 129.5 kg (285 lb 6.4 oz) 09/12/22 126.6 kg (279 lb) 09/08/22 127.9 kg (282 lb) [place] body weight: 52.4 kg (115 lb 8.3 [...] Dietitian, Licensed Dietitian 10/24/22 documented in this [facility] 10-09-2022 History of Present illness Narrative Bariatric [...] times per week, 30-45 minutes. Plan: Anthony Sawyer is cleared for bariatric surgery from a psychological perspective. Abhishek Quiroz PsyD documented in this encounter [facility] 10-03-2022 History of Present illness Narrative OUTPATIENT BARIATRIC NUTRITION EDUCATION: LESSON 2 Referring Provider: Self, Self Nutrition Assessment Anthropometrics: Ht Readings from Last 1 Encounters: 09/14/22 1.6 m (5' 3) Wt Readings from Last 5 Encounters: 10/03/22 125.2 kg (276 lb) 09/14/22 129.5 kg (285 lb 6.4 oz) 09/12/22 126.6 kg (279 lb) 09/08/22 127.9 kg (282 lb) 08/24/22 128.2 kg (282 lb 9.6 oz) [place] body weight: 52.4 kg (115 lb 8.3 [...] minutes DONNIE Syed Registered Dietitian, Licensed Dietitian 10/03/22 documented in this encounter [facility] 09-12-2022 History of Present illness Narrative OUTPATIENT BARIATRIC NUTRITION EDUCATION: LESSON 1 Referring Provider: Self, Self Nutrition Assessment Anthropometrics: Ht Readings from Last 1 Encounters: 09/08/22 1.6 m (5' 3) Wt Readings from Last 5 Encounters: 09/12/22 126.6 kg (279 lb) 09/08/22 127.9 kg (282 lb) 08/24/22 128.2 kg (282 lb 9.6 oz) 08/24/22 128.2 kg (282 lb 9.6 oz) [place] body weight: 52.4 kg (115 lb 8.3 [...] cups of coffee in the morning(sugar free australian vanilla creamer) NA Current exercise: Pt is [...] Licensed Dietitian 09/12/22 documented in this encounter [facility] 09-08-2022 History and physical note Bariatric/General Surgery H&P 09/08/2022 7:50 AM Anthony Sawyer [id number] Anthony Sawyer is a 56 y.o. year [...] (Temporal) Resp 18 Ht 1.6 m (5' 3) Wt 127.9 kg (282 lb) SpO2 96% [...] of them. Consent has been signed. Carly Blanco DO Bariatric and Minimally Invasive General Surgery [facility] 09-08-2022 History and physical note Bariatric/General Surgery H&P 09/08/2022 7:50 AM Anthony Sawyer [id number] Anthony Sawyer is a 56 y.o. year [...] (Temporal) Resp 18 Ht 1.6 m (5' 3) Wt 127.9 kg (282 lb) SpO2 96% [...] of them. Consent has been signed. Carly Blanco DO Bariatric and Minimally Invasive General Surgery documented in this encounter [facility] 09-08-2022 Nurse Note Pt taken out via [...] IV infusing. Pts friend at bedside. Dr. Blanco at [facility] speaking to pts friend. documented in this encounter [facility] 09-08-2022 Nurse Surgical operation note Pt taken out via wheelchair by Jackie GALLEGO, with pts friend Maria Eugenia driving pt. [facility] 09-08-2022 Nurse Surgical operation note Pt sitting at the edge of bed, denies dizziness or lightheadedness. [facility] 09-08-2022 Nurse Surgical operation note Discharge instructions reviewed with pt and family. Pt verbalizes understanding and denies any questions. [facility] 02-10-2023 Nurse Surgical operation note HOB elevated, drink and snack given. Able to swallow without difficutly. [facility] 09-08-2022 Nurse Surgical operation note Pt out to recovery, pt stable to bay. IV infusing. Pts friend at bedside. [facility] 09-08-[address]22 Nurse Surgical operation note Dr. Blanco at [facility] speaking to pts friend. [facility] 09-08-2022 Note Formatting of this n ote might be different from the original. Forceps down scope [facility] 09-08-2022 Miscellaneous Notes Forceps down scope documented in this encounter [facility] 08-24-2022 History of Present illness Narrative OUTPATIENT BARIATRIC INITIAL ASSESSMENT Referring Provider: Self, Self Nutrition Assessment Anthropometrics: Ht Readings from Last 1 Encounters: 08/24/22 1.6 m (5' 3) Wt Readings from Last 5 Encounters: 08/24/22 128.2 kg (282 lb 9.6 oz) 08/24/22 128.2 kg (282 lb 9.6 oz) [place] body weight: 52.4 kg (115 lb 8.3 oz) Adjusted ideal body weight: 82.7 kg (182 lb 5.6 oz) % IBW: 245% Body mass index is 50.06 kg/m . 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 Surgery Option: LSG EER: Calories: 8015-7744 kcals/day (15-20 kcals/kg Adj. BW) Protein: 60-79 gm/day (1.1-1.5 gm/kg IBW) Fluid: 64 oz/day Nutrition-Related Hx: Allergies/Intolerances: Nuts (Hives) Foods avoided for shinto or other reasons: None Current Supplements: No Previous Nutrition Education? No Previous methods used for weight mgmt: Keto diet did not find this sustainable. 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 /Significant other: No Children living in the house: No Grocery shopping: Pt Cooking: Pt Meals out per week: Possible Web Recall: Usual Intake (wakes up at 7-7:40) [...] - signed RD contact information Bariatric Nutrition [employer] contact information Pt is able to verbalize [...] PREALBUMIN, BUN, CREATSERUM, HGB, HCT, IRON, B12, [id number], FOLATE BP Readings from Last 3 Encounters: [...] Licensed Dietitian 08/24/22 documented in this encounter [facility] 08-24-2022 History of Present illness Narrative Bariatric [...] the patient, and documenting today's visit. Carly Blanco DO 08/24/2022 9:11 AM Bariatric Surgery documented in this encounter [facility] 08-24-2022 Miscellaneous Notes Addended by: JESUS VILLAREAL on: 08/24/2022 09:29 AM Modules accepted: Orders, SmartSet documented in this encounter [facility] 08-24-2022 Note Addended by: JESUS VILLAREAL on: 08/24/2022 09:29 AM Modules accepted: Orders, SmartSet [facility] 08-24-2022 Note Addended by: JESUS VILLAREAL on: 08/24/2022 09:29 AM Modules accepted: Orders, SmartSet [facility] 08-09-2021 History of Present illness Narrative covid insept telogen effluviumcortisone in left kneein urgicare last week and coivd and strpt negativedm no diabetic meds in 8 months, no cks, has lost weight, resumedhas rheum appt upcoming and will dovetsil labs.insomnia to resume traz at 50-100, prev 200. sl-2+hrs, marlee-nocturia 2-4, bts. 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 Hypersomnolence Hypersomnia, unspecified [facility] Diagnosis Nutritional counseling- Primary Morbid obesity with body mass index of 50 or higher [facility] Diagnosis Morbid obesity with BMI of 50.0-59.9, adult Type 2 diabetes 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, unspecified whether penitentiary insulin use Gastroesophageal reflux disease, unspecified whether esophagitis present Hypersomnolence Hypersomnia, unspecified [facility] Nutritional counseling- Primary BMI 45.0-49.9, adult Body Mass Index 45.0-49.9, adult [facility] Diagnosis Morbid obesity with BMI of 50.0-59.9, adult Type 2 diabetes 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, 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 Gastroesophageal reflux disease, unspecified whether esophagitis present Hypersomnolence Hypersomnia, unspecified [facility] Diagnosis Morbid obesity with BMI of 50.0-59.9, adult Type 2 diabetes 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, 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 Gastroesophageal reflux disease, unspecified whether esophagitis present Hypersomnolence Hypersomnia, unspecified [facility]* Diagnosis Nutritional counseling- Primary BMI 45.0-49.9, adult Body Mass Index 45.0-49.9, adult [facility]* Diagnosis Eating disorder, unspecified type- Primary [facility]* Diagnosis Sleep apnea, unspecified type- Primary [facility]* Diagnosis Type 2 diabetes 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, without long-term current use of insulin ([facility])- Primary Rheumatoid arthritis involving multiple sites, unspecified whether rheumatoid factor present ([facility]) Morbid obesity with body mass index of 50 or higher ([facility]) documented in this encounter [facility] Work Phone: Evaluation note* Diagnosis Obstructive sleep apnea- Primary Obstructive sleep apnea (adult) (pediatric) Sleep related hypoxia Idiopathic sleep related nonobstructive alveolar hypoventilation Overweight Encounter to discuss test results Other specified counseling Encounter for review of form with patient [facility] Diagnosis Obstructive sleep apnea- Primary Obstructive sleep apnea (adult) (pediatric) Sleep related hypoxia Idiopathic sleep related nonobstructive alveolar hypoventilation Overweight Encounter for review of form with patient [facility] Diagnosis Primary insomnia- Primary Persistent disorder of initiating or maintaining sleep Type 2 diabetes 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, without long-term current use of insulin ([facility]) Rheumatoid arthritis involving multiple sites, unspecified whether rheumatoid factor present ([facility]) Morbid obesity with body mass index of 50 or higher ([facility]) Mixed hyperlipidemia documented in this encounter [facility] Work Phone: Evaluation note* Diagnosis Type 2 diabetes mellitus with hyperglycemia (A1C > 6.49)- Primary Type II or unspecified type diabetes mellitus without mention of complication, not stated as uncontrolled Morbid obesity with body mass index of 50 or higher Type 2 diabetes mellitus with hyperglycemia, 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 Preop testing Preoperative examination, unspecified S/P gastric sleeve procedure ART (obstructive sleep apnea) Obstructive sleep apnea (adult) (pediatric) Morbid obesity with body mass index of 50 or higher S/P gastric sleeve procedure Hypertensive urgency Unspecified essential hypertension Metabolic acidosis Acidosis Hx of rheumatoid arthritis Personal history of arthritis documented in this encounter [facility] note* Diagnosis S/P gastric sleeve procedure- Primary documented in this encounter [employer] [facility] note* Diagnosis Nutritional counseling- Primary BMI 45.0-49.9, adult Body Mass Index 45.0-49.9, adult documented in this encounter [employer] note* Diagnosis Obstructive sleep apnea- Primary Obstructive sleep apnea (adult) (pediatric) Sleep related hypoxia Idiopathic sleep related nonobstructive alveolar hypoventilation Overweight Encounter for review of form with patient Excessive weight loss Loss of weight documented in this encounter [employer] note* Diagnosis Type 2 diabetes 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, without long-term current use of insulin ([facility])- Primary Mixed hyperlipidemia documented in this encounter [facility] Work Phone: Evaluation note* Diagnosis S/P gastric sleeve procedure- Primary Weight loss Loss of weight documented in this encounter [employer] note* Diagnosis Type 2 diabetes 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, without long-term current use of insulin ([facility]) Rheumatoid arthritis involving multiple sites, unspecified whether rheumatoid factor present ([facility]) documented in this encounter [facility] Work Phone: Evaluation note* Diagnosis Nutritional counseling- Primary Obesity, morbid, BMI 40.0-49.9 documented in this encounter [employer] note* Diagnosis S/P laparoscopic sleeve gastrectomy- Primary Weight loss Loss of weight documented in this encounter [employer] note* Diagnosis Type 2 diabetes 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, without long-term current use of insulin (Multi) documented in this encounter [facility] Work Phone: Evaluation note* Diagnosis S/P laparoscopic sleeve gastrectomy- Primary Weight loss Loss of weight [facility] Diagnosis Mixed hyperlipidemia- Primary Type 2 diabetes 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, without long-term current use of insulin Primary insomnia Persistent disorder of initiating or maintaining sleep Rheumatoid arthritis involving multiple sites, unspecified whether rheumatoid factor present (Multi) documented in this encounter [facility] Work Phone: History of Present illness Narrative* Since the last office visit there have been no interval operations, hospitalizations, important illnesses or injuries. 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 not on marilu /arb * Insomnia- talking and tolerating meds, SL- nil, MARLEE-0, no hangover, restorative sleep. Desires to continue med. * has dupytren and sees ortho * asks re bariatric surgery * ra tram lentz [facility] Work Phone: History of Present illness Narrative* Since the last office visit there have been no interval operations, hospitalizations, important illnesses or injuries. * discussed gastric bypass * dm a1c 94, cks fbs avg 180, pre meal 211. has been on pred for knee for 2 weeks int that period. 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 rba trrulicity * HTN-Takes and tolerates meds without side effects. No alcohol. no tobacco. no exercise. low salt. Reviewed recommendation for 150 minutes of exercise per week including 2 days of weight training if over age 50 [facility] Work Phone: History of Present illness Narrative* Since the last office visit there have been no interval operations, hospitalizations, important illnesses or injuries. * discussed gastric bypass * dm a1c 94, cks fbs avg 180, pre meal 211. has been on pred for knee for 2 weeks int that period. 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 rba trrulicity * HTN-Takes and tolerates meds without side effects. No alcohol. no tobacco. no exercise. low salt. Reviewed recommendation for 150 minutes of exercise per week including 2 days of weight training if over age 50 [facility] Work Phone: History of Present illness Narrative* [...] of weight training if over age 50 [facility] Work Phone: History of Present illness Narrative* April Brooks MD - 01/13/2025 8:40 AM EDT Subjective Patient ID: Anthony Sawyer is a 59 y.o. female who presents for Follow-up (6 mo). HPI Off enbrel as $. To see wendi for ra HTN-Takes and tolerates meds without side effects. No alcohol. no tobacco. no exercise. low salt. Reviewed recommendation for 150 minutes of exercise per week including 2 days of weight training if over age 50 DM- needs A1c. Occ checks 126+ Review of Systems General-no fatigue weight to within 10 pounds ENT no problems with vision swallowing Cardiac no chest pains palpitations change in exercise tolerance or capacity Pulmonary no cough shortness of breath GI no heartburn or abdominal pain Musculoskeletal no joint pains Objective BP 138/80 Pulse 72 Wt 110 kg (242 lb) SpO2 98% BMI 42.87 kg/m Physical Exam General: Alert, No acute distress. Appears stated age Eye: Pupils are equal, round and reactive to light, Extraocular movements are intact, Normal conjunctiva. Neck: Supple, Non-tender, No carotid bruit, No jugular venous distention, No lymphadenopathy, No thyromegaly. Respiratory: Lungs are clear to auscultation, Respirations are non-labored, Breath sounds are equal. Cardiovascular: Normal rate, Regular rhythm, No murmur. Integumentary: Warm, Dry. No concerning lesions on exposed areas Neurologic: Alert, Oriented. Gross and fine motor intact, CN 2-12 intact Psychiatric: Cooperative, Appropriate mood & affect. Assessment/Plan Problem List Items Addressed This Visit ICD-10-CM Diabetes (Multi) E11.9 Relevant Medications blood sugar diagnostic (Blood Glucose Test) lancets misc Other Relevant Orders Comprehensive Metabolic Panel CBC Albumin-Creatinine Ratio, Urine Random Hemoglobin A1C Lipid Panel Follow Up In Primary Care Hyperlipemia - Primary E78.5 Relevant Orders Comprehensive Metabolic Panel CBC Lipid Panel Follow Up In Primary Care Insomnia G47.00 Relevant Orders Follow Up In [facility] Discharge instructions* Attachments The following attachments cannot be sent through Care Everywhere. * Gastritis (Ukrainian) documented [facility] HospitalReason for referral (narrative)* Consultation (Routine) - Authorized Specialty Diagnoses / Procedures Referred By Cortney jay Referred To Contact Primary Care Diagnoses Type 2 diabetes 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, without long-term current use of insulin (CMS/HCC) Rheumatoid arthritis involving multiple sites, unspecified whether rheumatoid factor present (CMS/HCC) Morbid obesity with body mass index of 50 or higher (CMS/HCC) Procedures Follow Up In Primary Care April Brooks MD [address] [id number] Referral ID Status Reason Start Date Expiration Date V isits Requested Visits Authorized [id number] Authorized 12/26/2022 06/24/2023 1 1 [facility] Work Phone: Reason for referral (narrative)* Consultation (Routine) - Authorized Specialty Diagnoses / Procedures Referred By Cortney jay Referred To Contact Primary Care Diagnoses Type 2 diabetes 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, without long-term current use of insulin (CMS/HCC) Procedures Follow Up In Primary Care - Established April Brooks MD [address] [place] [address] Referral ID Status Reason Start Date Expiration Date V isits Requested Visits Authorized [id number] Authorized 03/28/2023 09/24/2023 1 1 [facility] Work Phone: Reason for referral (narrative)* (Routine) Specialty Diagnoses / Procedures Referred By Contac t Referred To Contact [address] [address] Referral ID Status Reason Start Date Expiration Date Visits Re quested Visits Authorized * (Routine) Specialty Diagnoses / Procedures Referred By Contac t Referred To Contact [address] [address] Referral ID Status Reason Start Date Expiration Date Visits Re quested Visits Authorized * (Routine) Specialty Diagnoses / Procedures Referred By Contac t Referred To Contact [address] [address] Referral ID Status Reason Start Date Expiration Date Visits Re quested Visits Authorized [facility] for [facility] (narrative)* Consultation (Routine) - Authorized Specialty Diagnoses / Procedures Referred By Contac t Referred To Contact Primary Care Diagnoses Type 2 diabetes 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, without long-term current use of insulin (CMS/HCC) Procedures Follow Up In Primary Care April Brooks MD [address] [place] [address] Referral ID Status Reason Start Date Expiration Date V isits Requested Visits Authorized [id number] Authorized 07/10/2023 07/09/2024 1 1 [facility] Work Phone: Reason for referral (narrative)* Consultation (Routine) - Authorized Specialty Diagnoses / Procedures Referred By Contac t Referred To Contact Primary Care Diagnoses Type 2 diabetes 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, without long-term current use of insulin (CMS/HCC) Procedures Follow Up In Primary Care April Brooks MD [address] [place] [address] Referral ID Status Reason Start Date Expiration Date V isits Requested Visits Authorized [id number] Authorized 10/11/2023 10/10/2024 1 1 [facility] Work Phone: Reason for referral (narrative)* Consultation (Routine) - Authorized Specialty Diagnoses / Procedures Referred By Cortney jay Referred To Contact Primary Care Diagnoses Type 2 diabetes 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, without long-term current use of insulin (Multi) Procedures Follow Up In Primary Care April Brooks MD [address] [place] [address] Referral ID Status Reason Start Date Expiration Date V isits Requested Visits Authorized [id number] Authorized 01/11/2024 01/10/2025 1 1 [facility] Work Phone: Summary Purpose Family History [...] Status:Active Advance Directives No Advanced Directives Records Found Advance Directive Response Recorded Date/ Time Advance Directives Yes January 20 2:49pm Living Will No April 28, 2021 8:24am Power of [employer] Captain No March 8:24am Advance Directive Response Recorded Date/ Time Advance Directives Yes January 20 1:49pm Living Will No April 28, 2021 7:24am Power of [place] Captain No March 7:24am Chief Complaint ELEVATED BP, DM CK3 MO FU. REV LABS3 MO FU. REV LABS3 MO FU. REV LABS3 MO FU. REV LABS Chief Complaint and Reason for Visit Chief Complaint SORE THROAT/STREP TE ST 2 DRS/ 2 ORDERS- S/O SCREENING Reason for Visit Acute pharyngitis Chief Complaint 2 DRS/ 2 ORDERS- S/O SCREENING S/O- PAIN- COPY PCP Chief Complaint SCREENING S/O- PAIN- COPY PCP S/O- PAIN- COPY PCP Chief Complaint S/O- PAIN- COPY PCP 2 ORDERS/ 2DRS Chief Complaint 2 DRS/ 2 ORDERS STANDING ORDER Chief Complaint STANDING ORDER Chief Complaint STANDING ORDER S/O- PAIN COPY PCP Chief Complaint S/O- PAIN COPY PCP SCREENING Chief Complaint S/O- PAIN COPY PCP SCREENING STANDING ORDER Chief Complaint SCREENING STANDING ORDER Chief Complaint S/O- AND ADDT ORDER/ 2DRS STANDING ORDER Reason for Referral Specialty Diagnoses / Procedures Referred By Cortney jay Referred To Contact Diagnoses Morbid obesity with BMI of 50.0-59.9, adult Type 2 diabetes 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, 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 Gastroesophageal reflux disease, unspecified whether esophagitis present Hypersomnolence Procedures ECG Carly Blanco, DO [address] [place] [address] Referral ID Status Reason Start Date Expiration Date V isits Requested Visits Authorized [id number] New Request 08/24/2022 09/18/2023 1 1 Specialty Diagnoses / Procedures Referred By Contac t Referred To Contact Diagnoses Morbid obesity with BMI of 50.0-59.9, adult Type 2 diabetes 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, 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 Gastroesophageal reflux disease, unspecified whether esophagitis present Hypersomnolence Procedures DIAGNOSTIC UPPER ENDOSCOPY [place] ESOPHAGOGASTRODUODENOSCOPY TRANSORAL DIAGNOSTIC Carly Blanco, DO [address] [place] [address] Referral ID Status Reason Start Date Expiration Date V isits Requested Visits Authorized [id number] New Request 08/24/2022 09/18/2023 1 1 Specialty Diagnoses / Procedures Referred By Contac t Referred To Contact Nutrition and Dietetics Diagnoses Morbid obesity with BMI of 50.0-59.9, adult Type 2 diabetes 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, 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 Gastroesophageal reflux disease, unspecified whether esophagitis present Hypersomnolence Carly Blanco, DO [address] [place] [address] Referral ID Status Reason Start Date Expiration Date V isits Requested Visits Authorized [id number] New Request 08/24/2022 09/18/2023 1 1 Specialty Diagnoses / Procedures Referred By Contac t Referred To Contact Psychology Diagnoses Morbid obesity with BMI of 50.0-59.9, adult Type 2 diabetes 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, 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 Gastroesophageal reflux disease, unspecified whether esophagitis present Hypersomnolence Carly Blanco, DO [address] [place] [address] Abhishek Quiroz, PsyD [address] [place] [id number] Referral ID Status Reason Start Date Expiration Date V isits Requested Visits Authorized [id number] New Request 08/24/2022 09/18/2023 1 1 Specialty Diagnoses / Procedures Referred By Contfreda t Referred To Contact Sleep Medicine Diagnoses Morbid obesity with BMI of 50.0-59.9, adult Type 2 diabetes 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, unspecified whether penitentiary insulin use Gastroesophageal reflux disease, unspecified whether esophagitis present Hypersomnolence Carly Blanco, DO [address] [place] [address] Referral ID Status Reason Start Date Expiration Date V isits Requested Visits Authorized [id number] New Request 08/24/2022 09/18/2023 1 1 Referral ID Status Reason Start Date Expiration Date Visits Requested Visits Authorized [id number] Authorized - [facility] 08/24/2022 09/18/2023 1 1 Referral ID Status Reason Start Date Expiration Date V isits Requested Visits Authorized [id number] Auth Not Needed 08/24/2022 09/18/2023 1 1 Referral ID Status Reason Start Date Expiration Date V isits Requested Visits Authorized [id number] Pending Review 08/24/2022 09/18/2023 1 1 Referral ID Status Reason Start Date Expiration Date Visits Re quested Visits Authorized [id number] Closed 08/24/2022 09/18/2023 1 1 Additional Source Comments INFORMATION SOURCE (unrecogn ized section and content) DATE CREATED AUTHOR 07/08/2018 [facility] DATE CREATED AUTHOR AUTHOR'S ORGANIZ ATION 02/15/2020 [facility] ([place]) DATE CREATED AUTHOR AUTHOR'S ORGANIZ ATION 09/23/2022 [facility] DATE CREATED AUTHOR AUTHOR'S ORGANIZ ATION 09/23/2022 [employer] DATE CREATED AUTHOR AUTHOR'S ORGANIZ ATION 12/12/2023 [facility] DATE CREATED AUTHOR AUTHOR'S ORGANIZ ATION 05/12/2024 [facility] DATE CREATED AUTHOR AUTHOR'S ORGANIZ ATION 10/03/2024 [facility] DATE CREATED AUTHOR AUTHOR'S ORGANIZ ATION 01/17/2025 [facility] DATE CREATED AUTHOR AUTHOR'S ORGANIZ ATION [facility] Amb[facility] Goals (unrecognized section and content) Goals may be documented in a n alternate sectionGoals may be documented in an alternate sectionGoals may be documented in an alternate sectionGoals may be documented in an alternate sectionGoals may be documented in an alternate sectionGoals may be documented in an alternate sectionGoals may be documented in an alternate sectionGoals may be documented in an alternate sectionGoals may be documented in an alternate sectionGoals may be documented in an alternate sectionGoals may be documented in an alternate section Reason for Visit (unrecogniz ed section and content) Reason Comments Nutrition Consultation Specialty Diagnoses / Procedures Referred By Eriac t Referred To Contact Registered Dietitian / Nutrition and Dietetics Diagnoses Class 2 ZOOM Procedures RETURN VIDEO CLIN STAFF-RADHA Quinn, Jan Obando, RD [address] [place] [address] Referral ID Status Reason Start Date Expiration Date V isits Requested Visits Authorized [id number] Pending Review 10/03/2022 10/28/2023 1 1 Specialty Diagnoses / Procedures Referred By Contac t Referred To Contact Nutrition and Dietetics Diagnoses Morbid obesity with BMI of 50.0-59.9, adult Type 2 diabetes 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, 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 Gastroesophageal reflux disease, unspecified whether esophagitis present Hypersomnolence Carly Blanco, DO [address] [place] [address] Referral ID Status Reason Start Date Expiration Date V isits Requested Visits Authorized [id number] New Request 08/24/2022 09/18/2023 1 1 Reason Comments New Patient Bariatric Consult Ci gna Specialty Diagnoses / Procedures [facility] Referred To Contact Registered Dietitian / Nutrition and Dietetics Diagnoses Initial Procedures NEW PATIENT - RADHA Self, Self Jan Bonner, RD [address] [place] [address] Referral ID Status Reason Start Date Expiration Date V isits Requested Visits Authorized [id number] Pending Review 08/24/2022 09/18/2023 1 1 Specialty Diagnoses / Procedures [facility] Referred To Contact Diagnoses Morbid obesity with BMI of 50.0-59.9, adult Type 2 diabetes 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, unspecified whether penitentiary insulin use Gastroesophageal reflux disease, unspecified whether esophagitis present Hypersomnolence Procedures DIAGNOSTIC UPPER ENDOSCOPY WA ESOPHAGOGASTRODUODENOSCOPY TRANSORAL DIAGNOSTIC Carly Blanco, DO [address] [place] [address] Referral ID Status Reason Start Date Expiration Date Visits Re quested Visits Authorized [id number] Closed 08/24/2022 09/18/2023 1 1 Specialty Diagnoses / Procedures Referred By Contac t Referred To Contact Diagnoses Morbid obesity with BMI of 50.0-59.9, adult Type 2 diabetes 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, 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 Gastroesophageal reflux disease, unspecified whether esophagitis present Hypersomnolence Procedures ECG Carly Blanco, DO [address] [place] [address] Referral ID Status Reason Start Date Expiration Date V isits Requested Visits Authorized [id number] New Request 08/24/2022 09/18/2023 1 1 Reason Comments Follow-up Eating Disorder Specialty Diagnoses / Procedures Referred By Contac t Referred To Contact Registered Dietitian / Nutrition and Dietetics Diagnoses Class 3 ZOOM Procedures RETURN VIDEO CLIN STAFF-Quinn Gant Isaac, RD [address] [place] [address] Referral ID Status Reason Start Date Expiration Date V isits Requested Visits Authorized [id number] Pending Review 10/24/2022 11/18/2023 1 1 Reason Comments Sleep Problem Specialty Diagnoses / Procedures [facility] Referred To Contact Diagnoses Sleep apnea, unspecified type Overweight Snoring Insomnia, unspecified type Tests ordered Procedures SCHEDULE HOME SLEEP STUDY Rosanne Haro, BILL HIKER-METAL DRESSER [address] [facility] [address] [place] [address] Referral ID Status Reason Start Date Expiration Date Visits Re quested Visits Authorized [id number] Closed 09/26/2022 10/21/2023 1 1 Specialty Diagnoses / Procedures [facility] Referred To Contact Registered Dietitian / Nutrition and Dietetics Diagnoses Final Procedures FOLLOW-UP - Quinn Gant Isaac, RD [address] [place] [address] Referral ID Status Reason Start Date Expiration Date V isits Requested Visits Authorized [id number] Pending Review 12/05/2022 12/30/2023 1 1 Reason [...] complication, without long-term current use of insulin ([facility]) Rheumatoid arthritis involving multiple sites, unspecified whether rheumatoid factor present ([facility]) Morbid obesity with body mass index of 50 or higher ([facility]) Procedures Follow Up In Primary Care April Brooks MD [address] [place] [address] Referral ID Status Reason Start Date Expiration Date V isits Requested Visits Authorized [id number] Authorized 12/26/2022 06/24/2023 1 1 Specialty Diagnoses / Procedures Referred By Contac t Referred To Contact Diagnoses Morbid obesity with body mass index of 50 or higher [E66.01] Type 2 diabetes mellitus with hyperglycemia, unspecified whether penitentiary insulin use [E11.65] Carly Blanco, DO [address] [place] [address] Referral ID Status Reason Start Date Expiration Date Visits Re quested Visits Authorized [id number] 03/27/2023 1 1 Reason Comments Post Op Visit 1 mo post op sleeve Specialty Diagnoses / Procedures Referred By Contac t Referred To Contact Registered Dietitian / Nutrition and Dietetics Diagnoses 2 month post op Procedures FOLLOW-UP - Carly Quinones, DO [address] [place] [address] Jan Bonner, RD [address] [place] [address] Referral ID Status Reason Start Date Expiration Date V isits Requested Visits Authorized [id number] Pending Review 06/11/2023 07/05/2024 1 1 Reason Comments Obstructive Sleep Apnea Reason Comments Follow-up 3 mo Specialty Diagnoses / Procedures Referred By Contac t Referred To Contact Primary Care Diagnoses Type 2 diabetes 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, without long-term current use of insulin ([facility]) Procedures Follow Up In Primary Care - Established April Brooks MD [address] [place] [address] Referral ID Status Reason Start Date Expiration Date V isits Requested Visits Authorized [id number] Authorized 03/28/2023 09/24/2023 1 1 Reason Comments Post Op Visit 3 mo post op sleeve Reason Comments Follow-up 3 mo rev labs ([place]) Specialty Diagnoses / Procedures Referred By Cortney jay Referred To Contact Primary Care Diagnoses Type 2 diabetes 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, without long-term current use of insulin ([facility]) Procedures Follow Up In Primary Care April Brooks MD [address] [place] [address] Referral ID Status Reason Start Date Expiration Date V isits Requested Visits Authorized [id number] Authorized 07/10/2023 07/09/2024 1 1 Specialty Diagnoses / Procedures Referred By Cortney jay Referred To Contact Registered Dietitian / Nutrition and Dietetics Diagnoses 6 MO PO Procedures FOLLOW-UP - RADHA Quinn, Deborah Shah, RD [address] [place] [address] Referral ID Status Reason Start Date Expiration Date V isits Requested Visits Authorized [id number] Pending Review 10/05/2023 10/29/2024 1 1 Reason Comments Post Op Visit 6 mo post op sleeve Specialty Diagnoses / Procedures Referred By Cortney jay Referred To Contact Primary Care Diagnoses Type 2 diabetes 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, without long-term current use of insulin (Multi) Procedures Follow Up In Primary Care April Brooks MD [address] [place] [address] Referral ID Status Reason Start Date Expiration Date V isits Requested Visits Authorized [id number] Authorized 10/11/2023 10/10/2024 1 1 Reason Comments Follow-up 1 year s/p sleeve ga strectomy follow up Reason Comments Follow-up 6 mo Specialty Diagnoses / Procedures Referred By Cortney jay Referred To Contact Primary Care Diagnoses Type 2 diabetes 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, without long-term current use of insulin (Multi) Procedures Follow Up In Primary Care April Brooks MD Phone: tel: fax: Referral ID Status Reason Start Date Expiration Date V isits Requested Visits Authorized [id number] Authorized 01/11/2024 01/10/2025 1 1 Specialty Diagnoses / Procedures Referred By Contac t Referred To Contact Primary Care Diagnoses Type 2 diabetes 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, without long-term current use of insulin Procedures Follow Up In Primary Care April Brooks MD [address] [address] Phone: tel: fax: Referral ID Status Reason Start Date Expiration Date V isits Requested Visits Authorized [id number] Authorized 07/14/2024 07/14/2025 1 1 Care Teams (unrecognized sec tion and content) Impregnator And Drier Helper Relationship Specialty [place] [address] [place] [address] PCP - General Family Medicine 06/30/22 Impregnator And Drier Helper Relationship Specialty [place] [address] [place] [address] PCP - General Family Medicine 06/30/22 Impregnator And Drier Helper Relationship Specialty [place] [address] [place] [address] PCP - General Family Medicine 06/30/22 Impregnator And Drier Helper Relationship Specialty [place] [address] [place] [address] PCP - General Family Medicine 06/30/22 Impregnator And Drier Helper Relationship Specialty [place] [address] [place] [address] PCP - General Family Medicine 06/30/22 Impregnator And Drier Helper Relationship Specialty [place] [address] [place] [address] PCP - General Family Medicine 06/30/22 Impregnator And Drier Helper Relationship Specialty [place] [address] [place] [address] PCP - General Family Medicine 06/30/22 Impregnator And Drier Helper Relationship Specialty [place] [address] [place] [address] PCP - General Family Medicine 06/30/22 Team Status: Active Member Role Status Dates Dr. April Brooks MD Family Provider Active Dr. April Brooks MD Primary Care Provider Active Team Status: Inactive Member Role Status Dates Dr. April Brooks MD Primary Care Pr ovider, Attending Provider, Referring Provider Active Dr. Pamela Lentz MD Other Provider Active Team Status: Inactive Member Role Status Dates Dr. April Brooks MD Primary Care Provider Active Dr. Pamela Lentz MD Attending Provider, Referring Provider Active Impregnator And Drier Helper Relationship Specialty Start Date End Date April Brooks MD [address] [place], [facility] PCP - General 04/15/19 Team Status: Inactive Member Role Status Dates Dr. April Brooks MD Primary Care Pr ovider, Attending Provider, Referring Provider Active Impregnator And Drier Helper Relationship Specialty [place] [address] [place] [address] PCP - General Family Medicine 06/30/22 Impregnator And Drier Helper Relationship Specialty [place] [address] [place] [address] PCP - General Family Medicine 06/30/22 Impregnator And Drier Helper Relationship Specialty Start Date End Date April Brooks MD [address] [place] [address] PCP - General 04/15/19 Team Status: Inactive Member Role Status Dates Dr. April Brooks MD Primary Care Provider Active Dr. Dawit Camacho MD Attending Provider, Referring Pr ovider Active Impregnator And Drier Helper Relationship Specialty [place] [address] [place] [address] PCP - General Family Medicine 06/30/22 Impregnator And Drier Helper Relationship Specialty [place] [address] [place] [address] [place], [id number] PCP - General Family Medicine 06/30/22 Impregnator And Drier Helper Relationship Specialty [place] [address] [place] [address] [place], [facility] PCP - General Family Medicine 06/30/22 Impregnator And Drier Helper Relationship Specialty [place] [address] [place] [address] PCP - General Family Medicine 06/30/22 Impregnator And Drier Helper Relationship Specialty Start Date End Date April Brooks MD [address] [place], [place] [address] PCP - General 04/15/19 Impregnator And Drier Helper Relationship Specialty [place] [address] [place] [address] [place], [id number] PCP - General Family Medicine 06/30/22 Impregnator And Drier Helper Relationship Specialty Start Date End Date April Brooks MD [address] [place] [address] PCP - General 04/15/19 Impregnator And Drier Helper Relationship Specialty [place] [address] [place] [address] [place], [id number] PCP - General Family Medicine 06/30/22 Team Status: Inactive Member Role Status Dates Dr. April Brooks MD Primary Care Provider, Other Provider Active Dr. Pamela Lentz MD Attending Provider, Referring Provider Active Impregnator And Drier Helper Relationship Specialty Start Date End Date April Brooks MD [address] [id number] PCP - General 04/15/19 Impregnator And Drier Helper Relationship Specialty [place] [address] [place] [address] PCP - General Family Medicine 06/30/22 Impregnator And Drier Helper Relationship Specialty Start Date End Date April Brooks MD [address] [address] PCP - General Family Medicine 07/14/24 Impregnator And Drier Helper Relationship Specialty Start Date End Date Aprli Brooks MD [address] [address] PCP - General Family Medicine 07/14/24 Scheduled Active and Recently Administ ered Medications (unrecognized section and content) Medication Order 04/11/2023 04/12/2023 04/13/2023 Acetaminophen (TYLENOL) oral solution 650 mg 650 mg, Oral, EVERY 6 HOURS, First dose on Sun04/11/23 at 1200, Until Discontinued, Maximum dose of acetaminophen is 4000 mg from all sources in 24 hours., Post-op/Post-Proc 1325 (Not Given - Provider: Leslee Jones RN - Reason: Contraindicated - Comment: patient nauseated)1824 (Given - Provider: Karen Kingsley, CHARLES) 0051 (Given - Provider: Le Brooks RN)0554 (Given - Provider: Le Brooks RN)1345 (Given - Provider: Geovanna Robles RN)202 (Given - Provider: Tess Connelly, CHARLES) 0155 (Given - Provider: Tess Connelly, CHARLES)0813 (Given - Provider: Amanda Guzmán RN)1400 (Canceled Entry - Provider: System Discharge - Comment: Automatically canceled at discontinue of medication order) acetaminophen (TYLENOL) tablet 1,000 mg (COMPLETED) 1,000 mg, Oral, ONCE, 1 dose, On Sun04/11/23 at 0800, With a sip of water on arrival to [facility], Pre-op/Pre-Proc 0841 (Given - Provider: Edna Calvillo, RN) Atorvastatin (LIPITOR) tablet 40 mg 40 mg, Oral, DAILY AT BEDTIME, First dose on Sun04/11/23 at 2100, Until Discontinued, Post-op/Post-Proc 2128 (Given - Provider: Le Brooks, RN) 2022 (Given - Provider: Tess Connelly, RN) clindamycin (CLEOCIN) 900 mg in normal saline 50 ml premix IVPB (COMPLETED) 900 mg, Intravenous, Administer over 30 Minutes, ONCE, 1 dose, On Sun04/11/23 at 0800, Administer in surgical area only - do not administer on the floor, Pre-op/Pre-Proc 53 (Given - Provider: Amol Bang APRN-VEHICLE OPERATOR TECHNICIAN) Dextrose 10% IV solution 250 mL(Linked Group 1) 250 mL, Intravenous, at 999 mL/hr, SEE ADMIN INSTRUCTIONS, Starting on Sun04/11/23 at 1616, Until Sun04/13/23 at 1427, Give Dextrose 10% 250 mL IV x 1 at a rate of 999 mL/hr for blood glucose LESS THAN 20 mg/dL or any blood glucose LESS THAN 70 mg/dL and patient has an altered level of consciousness, unable to swallow, or NPO. Notify physician and repeat blood glucose in 20 minutes. May repeat x 1 if repeat blood glucose less than 60 mg/dL DULoxetine (CYMBALTA) capsule DR 60 mg 60 mg, Oral, DAILY, First dose on Sun04/11/23 at 1200, Until Discontinued, Post-op/Post-Proc 1308 (Not Given - Provider: Leslee Jones RN - Reason: Contraindicated - Comment: patient nauseated) 923 (Given - Provider: Geovanna Robles, RN) 08 (Given - Provider: Amanda Guzmán, CHARLES) Enoxaparin Sodium (LOVENOX) injection 40 mg 40 mg, Subcutaneous, EVERY 12 HOURS, First dose on Sun04/12/23 at 0900, Until Discontinued, Indications: DVT/PE prophylaxis, Post-op/Post-Proc 0924 (Given - Provider: Geovanna Robles RN)1243 (Held by provider - Provider: Carly Blanco DO - Reason: Other - Comment: Per Dr Blanco instruction)2100 (Automatically Held - Provider: Carly Blanco DO) 0900 (Automatically Held - Provider: Carly Blanco DO)1427 (Unheld by provider - Provider: System Discharge) Gabapentin (NEURONTIN) capsule 600 mg (COMPLETED) 600 mg, Oral, ONCE, 1 dose, On Sun04/11/23 at 0800, With a sip of water on arrival to [facility], Pre-op/Pre-Proc 0841 (Given - Provider: Edna Calvillo, CHARLES) glucose chewable tablet CHEW 16-32 g(Linked Group 1) 16-32 g (4-8 tablet), Oral, SEE ADMIN INSTRUCTIONS, Starting on Sun04/11/23 at 1616, Until Sun04/13/23 at 1427, If patient is alert and able to [...] refer to the hypoglycemia management protocol on [facility]: [id number] Management Protocol. Heparin injection 5,000 Units (COMPLETED) 5,000 Units, Subcutaneous, ONCE, 1 dose, On Sun04/11/23 at 0800, Day of Surgery, Pre-op/Pre-Proc 0823 (Given - Provider: Edna Calvillo, CHARLES) insulin lispro (HumaLOG) injection(Linked Group 1) Subcutaneous, 4 TIMES DAILY WITH MEALS & AT BEDTIME, First dose on Sun04/11/23 at 1700, Until Discontinued, Sliding Scale parameters: Blood glucose under 70 = call physician; 151 - 200 = 2 units; 201 - 250 = 4 units; 251 - 300 = 6 units; 301 - 350 = 8 units; 351 - 400 = 10 units; Over 400 = call physician. 182 (Given - Provider: Karen Kingsley, CHARLES)2099 (Not Given - Provider: Le Brooks RN - Reason: Patient/family refused - Comment: d/t poor intake outside of water. Patient has not had a meal since surgery) 09 (Given - Provider: Geovanna Robles RN)134 (Given - Provider: Geovanna Robles RN)181 (Given - Provider: Geovanna Robles RN)2021 (Given - Provider: Tess Connelly RN) 0813 (Given - Provider: Amanda Guzmán RN)1200 (Canceled Entry - Provider: System Discharge - Comment: Automatically canceled at discontinue of medication order) Ketorolac (TORADOL) injection 15 mg (COMPLETED) 15 mg, Intravenous, EVERY 6 HOURS, 8 doses, First dose on Sun04/11/23 at 1200, Last dose on Sun04/13/23 at 0800, Post-op/Post-Proc 1319 (Given - Provider: Leslee Jones RN)182 (Given - Provider: Karen Kingsley RN) 005 (Given - Provider: Le Brooks RN)0554 (Given - Provider: Le Brooks RN)134 (Given - Provider: Geovanna Robles RN)2021 (Given - Provider: Tess Connelly RN) 0155 (Given - Provider: Tess Connelly RN)0813 (Given - Provider: Amanda Guzmán RN) Losartan (COZAAR) tablet 25 mg 25 mg, Oral, DAILY, First dose on Sun04/12/23 at 0900, Until Discontinued 0924 (Given - Provider: Geovanna Robles RN) 0813 (Given - Provider: Amanda Guzmán RN) Ondansetron 4mg/2ml (ZOFRAN) injection 4 mg 4 mg, Intravenous, EVERY 6 HOURS, First dose on Sun04/11/23 at 1200, Until Discontinued, Post-op/Post-Proc 1319 (Given - Provider: Leslee Jones RN)182 (Given - Provider: Karen Kingsley RN) 005 (Given - Provider: Le Brooks RN)0553 (Given - Provider: Le Brooks RN)134 (Given - Provider: Geovanna Robles RN)2021 (Given - Provider: Tess Connelly RN) 0155 (Given - Provider: Tess Connelly RN)0813 (Given - Provider: Amanda Guzmán RN)1400 (Canceled Entry - Provider: System Discharge - Comment: Automatically canceled at discontinue of medication order) Pantoprazole (PROTONIX) injection 40 mg 40 mg, Intravenous, DAILY, First dose on Sun04/11/23 at 1200, Until Discontinued, Dilute each 40 mg vial with 10 mL of NS. All bolus doses, whether 40 mg or 80 mg, should be administered over at least two minutes., Indications: Inpt Stress Ulcer Prophylaxis, Post-op/Post-Proc 1319 (Given - Provider: Leslee Jones RN) 0924 (Given - Provider: Geovanna Robles, RN) 0813 (Given - Provider: Amanda Guzmán, CHARLES) Scopolamine (TRANSDERM-SCOP) patch 1 patch (CANCELED)(Linked Group 2) 1 patch, Transdermal, ONCE, 1 dose, On Sun04/11/23 at 0800, Behind ear upon arrival to [facility]. , Pre-op/Pre-Proc 0820 (Patch Applied - Provider: Edna Calvillo, RN)1643 (Patch Removed - Provider: Karen Kingsley RN - Comment: Time automatically adjusted from order being discontinued) traZODone (DESYREL) tablet 100 mg 100 mg, Oral, DAILY AT BEDTIME, First dose on Sun04/11/23 at 2100, Until Discontinued, Post-op/Post-Proc 2100 (Not Given - Provider: Le Brooks RN - Reason: Patient/family refused - Comment: Patient states she is tired and does not need this medication to help her sleep tonight.) 2022 (Given - Provider: Tess Connelly RN) Continuous Medication Order 04/11/2023 04/12/2023 04/13/2023 Lactated ringers 1,000 mL with Potassium chloride 20 mEq IV solution (CANCELED) Intravenous, CONTINUOUS, Starting on Sun04/11/23 at 1200, Until Lis 04/12/23 at 0736, Post-op/Post-Proc 1329 ($$New Bag$$ - Provider: Leslee Jones RN)1834 ([employer] - Provider: Karen Kingsley, CHARLES) 0554 ($$New Bag$$ - Provider: Le Brooks RN)0930 (Stopped - Provider: Geovanna Robles, CHARLES) Lactated ringers IV solution (CANCELED) Intravenous, at 100 mL/hr, CONTINUOUS, Starting on Sun04/11/23 at 0800, Until Sun04/11/23 at 1155, Pre-op/Pre-Proc 0827 ($$New Bag$$ - Provider: Edna Calvillo RN)1110 (Paused - Provider: GRACE Boyce - Comment: Switch to gravity)1111 ($$New Bag$$ - Provider: GRACE Boyce)1642 (Stopped - Provider: Karen Kingsley RN) Sodium [...] insomnia, Post-op/Post-Proc 0553 (Given - Provider: Le Brooks RN) Enalaprilat (VASOTEC) injection 1.25 mg 1.25 mg, [...] 1134, Intra-op/Intra-Proc 1019 (Given - Provider: Carly Blanco, DO - Comment: given to sterile field) [...] refer to the hypoglycemia management protocol on [facility]: [id number] Management Protocol.
And Dextrose 10% IV solution [...] at 1617, Until Specified
Who to Notify: Production Associate
For all Blood Glucose LESS THAN 70 mg/dl, or greater than 400 mg/dl notify NETWORK SUPPORT MANAGER/Physician Group 2: Scopolamine (TRANSDERM-SCOP) patch 1 patch (CANCELED)Jump to med 1 patch, Transdermal, ONCE, 1 dose, On Sun04/11/23 at 0800
Behind ear upon arrival to holding.
Pre-op/Pre-Proc And VERIFY LINKED PATCH PLACEMENT (CANCELED) [...] BE BASED ON THE PRIMARY CLINICAL RECORDS. [employer] provides no warranty or guarantee of the accuracy or completeness of information in this document.
[2025-04-01 10:08] LABS: Hematocrit 39.4 % (37-47); Hemoglobin 12.7 g/dL (12.0-15.0); Immature Granulocytes Count 0.020 X10^3/uL (0.0-0.0); Mean Corp Hgb Conc 32.2 g/dL (32-36); Mean Corpuscular Volume 89.3 fL (81-99); Mean Platelet Vol. 10.8 fl (6.2-12.0); NRBC Flagged by Analyzer 0 % (0-5); Platelet Count 285 K/mm3 (150-450); RBC Distribution Width CV 13.3 % (11.6-14.6); RBC Distribution Width SD 43.8 fl (35.1-43.9); Red Blood Count 4.41 M/mm3 (4.2-5.4); White Blood Count 7.3 K/mm3 (4.4-11.0)
[2025-04-01 10:27] LABS: AST(SGOT) 18 U/L (<=31); Alanine Aminotransfer ALT/SGPT 10 U/L (<=34); Albumin, Serum 4.4 g/dL (3.4-4.8); Alkaline Phosphatase 85 U/L (35-104); Anion Gap 12 (5-15); BUN 12 mg/dL (4-19); BUN/Creat Ratio 14.4 RATIO (10-20); Calcium,Total 9.4 mg/dL (7.6-11.0); Carbon Dioxide 23.9 mmol/L (21.0-32.0); Chloride 105 mmol/L (98-108); Globulin 2.7 g/dL (2.2-4.2); Glucose 133 mg/dL (70-99); Potassium 4.3 mmol/L (3.3-5.1)
== END | disposition home or self-care (01) ==
LOC: MTLAB 07:13
PROVIDERS: PCP Family Medicine; Referring Provider Internal Medicine Rheumatology; Visit Provider Internal Medicine Rheumatology
DX: M06.00 Rheumatoid arthritis without rheumatoid factor, unspecified site (principal); M79.7 Fibromyalgia; M17.0 Bilateral primary osteoarthritis of knee; M18.11 Unilateral primary osteoarthritis of first carpometacarpal joint, right hand; Z79.899 Other long term (current) drug therapy
CPT/HCPCS: 36415; 80053; 85025

== ENCOUNTER → 2025-04-03 | Outpatient (CLI) | payer OTHER, SELFPAY ==
[2025-04-07 15:08] LABS: QNTFERON TB Mitogen Value > 10.00 IU/mL (.); QNTFERON TB Nil Value 0.04 IU/mL (.); QNTFERON TB1+ Ag Value 0.03 IU/mL (.); QNTFERON TB2+ Ag Value 0.02 IU/mL (.); QNTIFERON TB Positive Criteria Negative (Negative)
== END | disposition home or self-care (01) ==
LOC: MTLAB 07:04
PROVIDERS: PCP Family Medicine; Referring Provider Internal Medicine Rheumatology; Visit Provider Internal Medicine Rheumatology
DX: M06.00 Rheumatoid arthritis without rheumatoid factor, unspecified site (principal); M79.7 Fibromyalgia; M17.0 Bilateral primary osteoarthritis of knee; Z79.899 Other long term (current) drug therapy
CPT/HCPCS: 36415; 86480

== ENCOUNTER → 2025-07-28 | Outpatient (CLI) | payer OTHER, SELFPAY ==
[2025-07-28 12:28] LABS: Hematocrit 39.6 % (37-47); Hemoglobin 12.9 g/dL (12.0-15.0); Immature Granulocytes Count 0.010 X10^3/uL (0.0-0.0); Mean Corp Hgb Conc 32.6 g/dL (32-36); Mean Corpuscular Volume 86.1 fL (81-99); Mean Platelet Vol. 11.2 fl (6.2-12.0); NRBC Flagged by Analyzer 0 % (0-5); Platelet Count 274 K/mm3 (150-450); RBC Distribution Width CV 13.0 % (11.6-14.6); RBC Distribution Width SD 40.6 fl (35.1-43.9); Red Blood Count 4.60 M/mm3 (4.2-5.4); White Blood Count 6.2 K/mm3 (4.4-11.0)
[2025-07-28 12:30] LABS: AST(SGOT) 17 U/L (<=31); Alanine Aminotransfer ALT/SGPT 10 U/L (<=34); Albumin, Serum 4.1 g/dL (3.4-4.8); Alkaline Phosphatase 94 U/L (35-104); Anion Gap 12 (7-18); BUN 12 mg/dL (4-19); BUN/Creat Ratio 13.6 RATIO (10-20); Calcium,Total 9.1 mg/dL (7.6-11.0); Carbon Dioxide 24.5 mmol/L (20.0-29.0); Chloride 104 mmol/L (96-106); Globulin 2.5 g/dL (2.2-4.2); Glucose 221 mg/dL (70-99); Potassium 4.3 mmol/L (3.5-5.1)
== END | disposition home or self-care (01) ==
LOC: MTLAB 10:06
PROVIDERS: PCP Family Medicine; Referring Provider Internal Medicine Rheumatology; Visit Provider Internal Medicine Rheumatology
DX: M06.00 Rheumatoid arthritis without rheumatoid factor, unspecified site (principal); M79.7 Fibromyalgia; M17.0 Bilateral primary osteoarthritis of knee; M18.11 Unilateral primary osteoarthritis of first carpometacarpal joint, right hand; Z79.899 Other long term (current) drug therapy
CPT/HCPCS: 36415; 80053; 85025